=== PATIENT | female | born 1975 | race Caucasian/White ===

== ENCOUNTER 2022-07-17 08:00 | Outpatient (RCR) | payer BC, SELFPAY ==
[2022-06-26 07:56] VITALS: BP 107/62; PULSE 62; RESP 16; TEMP 35.7; BMI 22.2
--- NOTE | 2022-06-26 10:31 | PCM.WC.HP ---
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 She started to develop the wound on her sacrum and was dealing with it on her own and added almost healed then they decided to give her injections for the MS that exacerbated the wound for healing. Now patient has a stage IV tunneled sacral decubitus ulcer. Patient is emotional about the situation she is just newly paralyzed in the last 2 years. [facility] Home Medications baclofen 10 mg tablet 10 mg PO TID 06/26/22 [History Last Taken Unknown] gabapentin 300 mg capsule (Neurontin) 300 mg PO TID 06/26/22 [History Last Taken Unknown] multivitamin 1 tab PO DAILY 06/26/22 [History Last Taken Unknown] oxybutynin chloride 5 mg tablet 10 mg PO DAILY 06/26/22 [History Last Taken Unknown] Allergy/AdvReac Type Severity Reaction Status Date / Time doxycycline Allergy Nausea/Vom/ Verified 06/26/22 08:16 Diarrhea Social History Smoking Status: Former smoker ROS Constitutional Constitutional: Reports systems reviewed and no addt'l complaints, except as documented Eyes Eyes: Reports systems reviewed and no addt'l complaints, except as documented ENT HEENT: Reports systems reviewed and no addt'l complaints, except as documented Cardiovascular Cardiovascular: Reports systems reviewed and no addt'l complaints, except as documented Respiratory/Chest Respiratory/Chest: Reports systems reviewed and no addt'l complaints, except as documented Gastrointestinal Gastrointestinal: Reports systems reviewed and no addt'l complaints, except as documented Genitourinary Genitourinary: Reports other Details: Urine incontinence from paralysis Musculoskeletal Musculoskeletal: Reports other Details: Paraplegic Integumentary Integumentary: Reports wounds and other Details: Stage IV sacral wound with tunneling Neurologic Neurologic: Reports systems reviewed and no addt'l complaints, except as documented Psychiatric Psychiatric: Reports systems reviewed and no addt'l complaints, except as documented Endocrine Endocrinology: Reports systems reviewed and no addt'l complaints, except as documented Hematologic/Lymphatic Hematologic/Lymphatic: Reports systems reviewed and no addt'l complaints, except as documented Allergic/Immunologic Allergic/Immunologic: Reports systems reviewed and no addt'l complaints, except as documented Vital Signs Vital Signs Vital Signs: 06/26/22 07:56 Temperature 96.2 F L Temperature Source Temporal Pulse Rate 62 Respiratory Rate 16 Blood Pressure 107/62 Blood Pressure Mean 77 Blood Pressure Source Monitor Blood Pressure Position Sitting Oxygen Delivery Method Room Air Weight Weight: 142 lb Body Mass Index (BMI) 22.2 Physical Exam Const oriented x3 General Appearance: cooperative Exam Limitations: no limitations HEENT normocephalic Head and Scalp: normal to inspection Face and Sinus: normal facial exam Nose: external nose normal General Ear: hearing grossly impaired External Ear: external ears normal Mouth: oral and palatal mucosa normal Eyes PERRL General Eye: normal appearance of both eyes Neck full ROM General: normal visual inspection Resp normal respiratory effort Effort and Inspection: able to speak in complete sentences Auscultation: clear to auscultation bilaterally Cardio regular rate and regular rhythm Palpation: normal PMI Rate: regular rate Rhythm: regular rhythm GI Auscultation: normoactive bowel sounds Palpation: soft and no hepatosplenomegaly Back/Spine Cervical Spine: cervical ROM normal Thoracic Spine / Upper Back: normal to inspection Lumbar Spine / Lower Back: normal to inspection Extremity normal to inspection General Extremity: normal exam except as noted Skin no rashes or lesions noted Wounds: wounds noted Wound Narrative: Stage IV sacral wound with tunneling Hair: normal Nails: normal Neuro oriented x3 Psych Appearance: grossly normal Speech: normal speech Thought Content: normal thought content Judgement: judgement good Debridement Note Debridement Note Wound debrided: Sacral decubitus ulcer Laterality: Not Applicable Wound Grade/Stage: Stage IV Type of Debridement: Excisional debridement Anesthesia Used: 5% Lidocaine Gel Depth: in the subcutaneous layer Percentage of wound debrided: 100 Instrument Used: 7mm curette Tissue Removed: Fibrin Severity: Fat Layer Exposed Amount of bleeding with debridement: Moderate Bleeding Controlled with: Compression and gauze Patient tolerated procedure: Patient tolerated procedure well Post-Debridement Measurements and Additional Note: Post-Debridement Measurements/Treatment - Nurse 1 - General Ulcer Assessment Start: 06/26/22 07:56 Freq: Status: Active Protocol: BENIGNO Activity Type Activity Date Activity User E-sign Co-sign Detail Recorded Client Recorded Date Recorded By Document 06/26/22 07:56 [facility] [id number] 06/26/22 08:14 [facility] 06/26/22 07:56 - Today's Visit Information Type of service Initial Visit Arrival Mode Wheelchair Transfer Assistance None Accompanied by Patient Identification Verified (Name & Yes ) Patient Requires Transmission-Based No Precautions Height and Weight Height 5 ft 7 in Weight 142 lb Weight in Pounds 142.0 lbs Body Mass Index (BMI) 22.2 BMI Classification Normal BSA - David 1.75 Vital Signs Temperature (97.8 F-99.1 F) 96.2 F L Temperature Source Temporal Pulse Rate (60-100) 62 Pulse Location Monitor Respiratory Rate (12-18) 16 Respiratory rate source Observation Oxygen Delivery Method Room Air Blood Pressure (90/60-120/80) 107/62 Blood Pressure Mean 77 Source Monitor Position Sitting History Since Last Visit- (Skip if this is Patient's initial visit) Left Footwear Regular Shoe Right Footwear Regular Shoe Pain Scale: 0-10 Numeric Is Patient Pain Free? Yes Communication Assessment Preferred language Armenian Mycology Teacher Required No Able to Read Yes Able to Write Yes Communication Tools None Right Hearing Abillity Normal Left Hearing Abillity Normal Visual Assistive Devices None Teaching Assessment Preferences Verbal,Written, Audio/Visual, Demonstration Barriers to Learning None Readiness To Learn Excellent Willingness to Engage in Self Management High Activies Readiness to Engage in Self Management High Activities Anxiety Level Calm Cooperation Cooperative Perception Coherent Interest in Health Problem Asks Questions Education Importance Acknowledges Need Does Patient Smoke tobacco or other No substances Smoking Status Former smoker Is Patient Diabetic No 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 Cultural/Latter-Day Needs that may affect No Treatment Plan WC - Nurse 1 - General Ulcer Measurement Start: 06/26/22 07:56 Freq: Status: Active Protocol: Activity Type Activity Date Activity User E-sign Co-sign Detail Recorded Client Recorded Date Recorded By Document 06/26/22 07:56 [facility] [id number] 06/26/22 08:14 [facility] 06/26/22 07:56 Wound Center Nurse 1 #1- sacral -Combined with other wound No -Current Size (cm) - Length 1.7 -Current Size (cm) - Width 1 -Current Size (cm) - Depth 4.5 -Total Square Cm 1.7 -Date of Last Picture (Recall this 06/26/22 field) -Photo Taken Yes -Tunneling Yes -Tunneling Position (O'clock) 12 -Tunneling Distance (cm) 5.2 -Undermining/Tunneling No -Circular Undermining No -Exudate Amt Small -Exudate Type Serosanguineous -Wound Margin Distinct, Outline Attached -Granulation Amt Large (67-100%) -Granulation Quality Red -Slough/Fibrin No -Necrosis Amt None Present (0 %) -Texture (Neda-wound Skin Appearance) Assessed -Moisture (Neda-wound Skin Appearance) Assessed -Color (Neda-wound Skin Appearance) Assessed -Temperature (Neda-wound Skin No Abnormality Appearance) (Pt Warm) -Tenderness on Palpation (Neda-wound No Skin Appearance) -Ulcer Cleansing Soap and Water -Foul Odor after Cleansing No -Anesthetic Used 4% Lidocaine Solution DEBBI - Nurse 2 - General Ulcer CM Notes Start: 06/26/22 07:56 Freq: Status: Active Protocol: Activity Type Activity Date Activity User E-sign Co-sign Detail Recorded Client Recorded Date Recorded By Document 06/26/22 08:36 MW [id number] 06/26/22 08:55 MW 06/26/22 08:36 Wound Center Nurse 2 -Time 08:37 -Correct Patient Yes -Correct Side, Site, Position Yes -Correct Procedure Yes -Procedure Performed Yes -Type of Procedure Debridement -Clinical Debridement Subcutaneous -Tissue Removed Subcutaneous -Post Debridement (cm) - Length 2.0 -Post Debridement (cm) - Width 1.0 -Post Debridement (cm) - Depth 5.5 -Total Square (Post) (cm) 2.00 -Area of Debridement (cm) - Length 2.0 -Area of Debridement (cm) - Width 1.0 -Total Square (Area) (cm) 2.00 -Tunneling Yes -Tunneling Position (O'clock) 12 -Tunneling Distance (cm) 5.5 -Undermining/Tunneling No -Circular Undermining No -Wound/Ulcer Outcome Not Healed -Ulcer Cleansing Rinsed/ Irrigated with Saline -Foul Odor after Cleansing No -Bioengineered Tissue No -Bleeding Controlled with Pressure -Treatment Response Procedure Tolerated Well -Offloading No -Debridement - Subq, 1st 20sq cm Yes Pain Scale: 0-10 Numeric Is Patient Pain Free? Yes DEBBI - Nurse 3 - General Ulcer D/C NN Start: 06/26/22 07:56 Freq: Status: Active Protocol: Activity Type Activity Date Activity User E-sign Co-sign Detail Recorded Client Recorded Date Recorded By Document 06/26/22 09:33 [facility] [id number] 06/26/22 09:33 [facility] 06/26/22 09:33 Wound Care Center Nurse 3 #1- sacral -Ulcer Cleansing Rinsed/ Irrigated with Saline -Foul Odor after Cleansing No -Negative Pressure Wound Therapy Start -Setting (mmHg) 150 -Negative Pressure is Continuous -NPWT Application Charge NPWT & Debridement (nc ) Treatment Response Procedure Tolerated Well Pain Scale: 0-10 Numeric Is Patient Pain Free? Yes WC - Visit Discharge Discharge Condition Stable Ambulatory Status Wheelchair Transportation Private Auto Accompanied by [facility] Lab / Micro Data Result Diagrams: 06/26/22 09:54 06/26/22 09:54 Assessment/Plan Assessment/Plan (1) Sacral decubitus ulcer, stage IV: CODE(S): L89.154 - Pressure ulcer of sacral region, stage 4 PLAN: Wash wound with antibacterial soap such as Hibiclens. Pack with white foam and attach wound VAC at 150 mmHg May change as needed for for fullness of tank or from losing a seal. Cultures obtained will call patient with results Lab work complete blood count CMP thyroid prealbumin CT of the sacral area for osteomyelitis Consult with Rina and Dr. Gregory about flap or closure (2) Immobility syndrome (paraplegic): CODE(S): M62.3 - Immobility syndrome (paraplegic) (3) Osteomyelitis: CODE(S): M86.9 - Osteomyelitis, unspecified
[2022-06-26 10:38] LABS: Absolute Lymphocyte Count 1.02 X10^3/uL (0.83-4.51); Absolute Neutrophil Count 4.1 X10^3/uL (2.0-7.7); Basophil# 0.04 X10^3/uL; Basophil% 0.7 % (0-1); Eosinophil# 0.18 X10^3/uL; Eosinophils% 3.1 % (0-5); Hemoglobin 12.6 g/dL (12.0-15.0); Lymphocyte # 1.02 X10^3/ul (0.83-4.51); Lymphocyte % 17.7 % (19-41); Mean Corp Hgb Conc 32.3 g/dL (32-36); Mean Corpuscular Hgb 28.6 pg (27.0-32.0); Mean Corpuscular Volume 88.4 fL (81-99); Mean Platelet Vol. 9.5 fl (6.2-12.0); Monocyte# 0.43 X10^3/uL; Monocyte% 7.5 % (0-10); NRBC Flagged by Analyzer 0 % (0-5); Neutrophil # 4.09 X10^3/uL (2.7-7.7); Neutrophil % 70.8 % (47-70); Platelet Count 242 K/mm3 (150-450); RBC Distribution Width CV 13.2 % (11.6-14.6); RBC Distribution Width SD 43.2 fl (35.1-43.9); Red Blood Count 4.41 M/mm3 (4.2-5.4); White Blood Count 5.8 K/mm3 (4.4-11.0)
[2022-06-26 11:14] LABS: ALB/GLOB Ratio 0.8 RATIO (0.9-2.4); AST(SGOT) 13 U/L (15-37); Alanine Aminotransfer ALT/SGPT 16 U/L (13-56); Alkaline Phosphatase 95 U/L (45-117); Anion Gap 7 (5-15); BUN 11 mg/dL (7-18); BUN/Creat Ratio 22.2 RATIO (10-20); Calcium,Total 8.8 mg/dL (8.5-10.1); Chloride 104 mmol/L (98-107); EST Glomerular Filtration Rate 143 mL/min (>60); Est Glom Filt Rate - Afr Amer 172 mL/min (>60); Estimated Creatinine Clearance 138.17 ml/min; Globulin 3.9 g/dL (2.2-4.2); Glucose 85 mg/dL (74-106); Potassium 3.5 mmol/L (3.5-5.1); Prealbumin 15.3 mg/dL (20.0-40.0); Protein, Total 6.9 g/dL (6.4-8.2); Sodium Level 143 mmol/L (136-145); Thyroid Stim Hormone (TSH) 0.99 uIU/mL (0.358-3.74)
[2022-07-01 08:48] VITALS: TEMP 36.2; BMI 22.2
--- NOTE | 2022-07-01 16:54 | HP.PCM_ITS ---
History of Present Illness Date of Service: 07/01/22 Chief Complaint: WOUND CENTER CONSULTATION REFERRING PROVIDER: KYRA Vivar. DELIVERY ASSOCIATE: Dr. Gregory. Sacral pressure sore, Stage IV. History of Wound: 46-year-old woman who presented to the Wound Center with a sacral pressure sore, Stage IV, and associated osteomyelitis. 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 During this time she was also diagnosed with MS. She developed a sacral pressure sore that was excised and debrided in the operating room in [place] at [facility] in October,. Cultures (soft tissue and bone) showed Peptostreptococcus, Bacteroides, and E. coli. She was treated with IV Ertapenem for the osteomyelitis. 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 At her Wound Center visit last week, 06/26/22, she had a wound culture. It showed Staphylococcus aureus and Corynebacterium striatum. Will start her on Augmentin. She had labs done at last visit as well. Hgb was 12.6. Potassium was 3.5. BUN/Creat was 11/0.50. Prealbumin was 15.3. A CT scan has been ordered and is pending. I was asked to evaluate this patient for surgical options for treatment i ncluding HBO. Progress of Wound: Stable. Granulation tissue present that extends to the bone with some undermining superiorly. [facility] Medical History Former smoker Immobility syndrome (paraplegic) Long-term current use of rituximab Multiple sclerosis Osteomyelitis Sacral decubitus ulcer, stage IV Home Medications baclofen 10 mg tablet 10 mg PO TID 06/26/22 [History Last Taken Unknown] gabapentin 300 mg capsule (Neurontin) 300 mg PO TID 06/26/22 [History Last Taken Unknown] multivitamin 1 tab PO DAILY 06/26/22 [History Last Taken Unknown] oxybutynin chloride 5 mg tablet 10 mg PO DAILY 06/26/22 [History Last Taken Unknown] amoxicillin 875 mg-potassium clavulanate 125 mg tablet 1 tab PO Q12H 14 days #28 tabs 07/01/22 [Rx Last Taken Unknown] Allergy/AdvReac Type Severity Reaction Status Date / Time doxycycline Allergy Nausea/Vom/ Verified 06/26/22 08:16 Diarrhea Social History Smoking Status: Former smoker ROS ROS Narrative General - Denies fever, fatigue, and weight loss. Eyes - Denies cataracts and glaucoma. ENT - Denies nasal congestion and sore throat. Endocrine - Denies excessive thirst and urination. Skin - Denies suspicious lesions and skin cancer. Has sacral pressure sore, Stage IV. Musculoskeletal - Denies joint pain, joint stiffness, weakness of muscles and joints, back pain, and arthritis. Has osteomyelitis. Has multiple sclerosis. Neuro - Denies headaches. Has paralysis from hemorrhagic myelitis. Cardiovascular - Denies chest pain, fatigue, and shortness of breath with exertion. Psych - Denies anxiety and depression. Respiratory - Denies chronic cough and shortness of breath. Gastrointestinal - Denies nausea, vomiting, diarrhea, and constipation. Hematologic - Denies abnormal bruising and bleeding. Genitourinary - Denies hematuria and urinary frequency. Vital Signs Vital Signs Vital Signs: Weight Weight: 142 lb Body Mass Index (BMI) 22.2 Physical Exam Narrative General - Alert and Oriented. HEENT - PERRL. EOMI. Throat is clear. Neck - Supple and nontender. Lungs - Clear to auscultation. Heart - Regular rate and rhythm. Abdomen - Soft and nondistended. Lower Back and Sacrum - Sacral pressure sore, Stage IV. Extends to the bone. Some undermining superiorly. Has previous diagnosis of osteomyelitis. Measures 1.5 x 1 cm. Depth of 6 cm. Superior undermining of 5 cm. Extremities - No clubbing or cyanosis. Neuro - CN II-XII grossly intact. Paralyzed from waist down from hemorrhagic myelitis. Psych - Normal mood and affect. Debridement Note Debridement Note Wound debrided: #1 Sacral area. Laterality: Not Applicable Wound Grade/Stage: IV. Type of Debridement: Excisional debridement Anesthesia Used: 4% Lidocaine Solution Depth: Down to and including healthy tissue, in the subcutaneous layer, to muscle and to bone (bone is palpable but not exposed and not debrided.) Percentage of wound debrided: 100 Instrument Used: 5mm curette Tissue Removed: subcutaneous tissue and muscle. Severity: Fat Layer Exposed (muscle is exposed. Bone is palpable but not exposed and not debrided.) Amount of bleeding with debridement: Mild Bleeding Controlled with: Pressure Patient tolerated procedure: Patient tolerated procedure well Post-Debridement Measurements and Additional Note: Post-Debridement Measurements/Treatment - Nurse 1 - General Ulcer Assessment Start: 06/26/22 07:56 Freq: Status: Active Protocol: WC.LOWEXT Activity Type Activity Date Activity User E-sign Co-sign Detail Recorded Client Recorded Date Recorded By Document 06/26/22 07:56 [facility] [id number] 06/26/22 08:14 BM Document 07/01/22 08:48 [place] [id number] 07/01/22 08:51 AK 06/26/22 07/01/22 07:56 08:48 - Today's Visit Information Type of service Initial Visit Follow-up Visit (Physician/FITTING ROOM OPERATOR ) Arrival Mode Wheelchair Wheelchair Transfer Assistance None Accompanied by Patient Identification Verified (Name & Yes Yes ) Patient Requires Transmission-Based No No Precautions Safety Precautions NA Height and Weight Height 5 ft 7 in Weight 142 lb Weight in Pounds 142.0 lbs Body Mass Index (BMI) 22.2 22.2 BMI Classification Normal Normal BSA - David 1.75 Vital Signs Temperature (97.8 F-99.1 F) 96.2 F L 97.2 F L Temperature Source Temporal Temporal Pulse Rate (60-100) 62 Pulse Location Monitor Respiratory Rate (12-18) 16 Respiratory rate source Observation Oxygen Delivery Method Room Air Blood Pressure (90/60-120/80) 107/62 Blood Pressure Mean 77 Source Monitor Position Sitting History Since Last Visit- (Skip if this is Patient's initial visit) Have you changed medications since your No last visit? Any new allergies or adverse reactions No Had a fall/change in ADL's that may No increase risk of falls Signs or symptoms of abuse and/or No neglect since last visit Have you been in the hospital since your No last visit? Has dressing in place as prescribed Yes Has compression in place as prescribed N/A Has offloadiing in place as prescribed Yes Experienced any changes in pain level or No management Left Footwear Regular Shoe Right Footwear Regular Shoe Pain Scale: 0-10 Numeric Is Patient Pain Free? Yes Yes Communication Assessment Preferred language Slovenian Network Communications Engineer Required No Able to Read Yes Able to Write Yes Communication Tools None Right Hearing Abillity Normal Left Hearing Abillity Normal Visual Assistive Devices None Teaching Assessment Preferences Verbal,Written, Audio/Visual, Demonstration Barriers to Learning None Readiness To Learn Excellent Willingness to Engage in Self Management High Activies Readiness to Engage in Self Management High Activities Anxiety Level Calm Cooperation Cooperative Perception Coherent Interest in Health Problem Asks Questions Education Importance Acknowledges Need Does Patient Smoke tobacco or other No substances Smoking Status Former smoker Is Patient Diabetic No Culture/Bahai/Paste Maker Cultural/Bahai Needs that may affect No Treatment Plan WC - Nurse 1 - General Ulcer Measurement Start: 06/26/22 07:56 Freq: Status: Active Protocol: Activity Type Activity Date Activity User E-sign Co-sign Detail Recorded Client Recorded Date Recorded By Document 06/26/22 07:56 [facility] [id number] 06/26/22 08:14 [facility] Document 07/01/22 08:48 LA [id number] 07/01/22 08:51 LA 06/26/22 07/01/22 07:56 08:48 Wound Center Nurse 1 #1- sacral -Combined with other wound No No -Current Size (cm) - Length 1.7 1 -Current Size (cm) - Width 1 0.5 -Current Size (cm) - Depth 4.5 2 -Total Square Cm 1.7 0.5 -Date of Last Picture (Recall this 06/26/22 field) -Photo Taken Yes Yes -Tunneling Yes No -Tunneling Position (O'clock) 12 12 -Tunneling Distance (cm) 5.2 5 -Undermining/Tunneling No No -Circular Undermining No No -Change in Wound Grade/Stage No -Exudate Amt Small Medium -Exudate Type Serosanguineous Serosanguineous -Wound Margin Distinct, Distinct, Outline Outline Attached Attached -Granulation Amt Large (67-100%) Large (67-100%) -Granulation Quality Red N/A,Goldsmith -Slough/Fibrin No Yes -Necrosis Amt None Present (0 Small (1-33%) %) -Necrotic Tissue Type Adherent Slough -Structure Exposed N/A -Texture (Neda-wound Skin Appearance) Assessed No Abnormality, Assessed -Moisture (Neda-wound Skin Appearance) Assessed No Abnormality, Assessed -Color (Neda-wound Skin Appearance) Assessed No Abnormality, Assessed -Temperature (Neda-wound Skin No Abnormality No Abnormality Appearance) (Pt Warm) (Pt Warm) -Tenderness on Palpation (Neda-wound No No Skin Appearance) -Ulcer Cleansing Soap and Water Soap and Water -Foul Odor after Cleansing No No -Anesthetic Used 4% Lidocaine Solution - Nurse 2 - General Ulcer CM Notes Start: 06/26/22 07:56 Freq: Status: Active Protocol: Activity Type Activity Date Activity User E-sign Co-sign Detail Recorded Client Recorded Date Recorded By Document 06/26/22 08:36 MW [id number] 06/26/22 08:55 MW Document 07/01/22 09:41 JF [id number] 07/01/22 09:51 JF 06/26/22 07/01/22 08:36 09:41 Wound Center Nurse 2 #1- sacral -Time 08:37 09:41 -Correct Patient Yes Yes -Correct Side, Site, Position Yes Yes -Correct Procedure Yes Yes -Procedure Performed Yes Yes -Type of Procedure Debridement Debridement -Clinical Debridement Subcutaneous Muscle / Fascia -Tissue Removed Subcutaneous Muscle,Fascia -Post Debridement (cm) - Length 2.0 1.8 -Post Debridement (cm) - Width 1.0 1.0 -Post Debridement (cm) - Depth 5.5 6.7 -Total Square (Post) (cm) 2.00 1.80 -Area of Debridement (cm) - Length 2.0 1.8 -Area of Debridement (cm) - Width 1.0 1.0 -Total Square (Area) (cm) 2.00 1.80 -Tunneling Yes No -Tunneling Position (O'clock) 12 -Tunneling Distance (cm) 5.5 -Undermining/Tunneling No No -Circular Undermining No No -Wound/Ulcer Outcome Not Healed Not Healed -Ulcer Cleansing Rinsed/ Rinsed/ Irrigated with Irrigated with Saline Saline -Foul Odor after Cleansing No No -Bioengineered Tissue No No -Bleeding Controlled with Pressure Pressure -Treatment Response Procedure Procedure Tolerated Well Tolerated Well -Offloading No No -Pressure Reduction Wheelchair cushion -Debridement - Subq, 1st 20sq cm Yes -Debridement - Muscle / Fascia, 1st Yes 20sq cm Pain Scale: 0-10 Numeric Is Patient Pain Free? Yes Yes - Nurse 3 - General Ulcer D/C NN Start: 06/26/22 07:56 Freq: Status: Active Protocol: Activity Type Activity Date Activity User E-sign Co-sign Detail Recorded Client Recorded Date Recorded By Document 06/26/22 09:33 [facility] [id number] 06/26/22 09:33 BM Document 07/01/22 08:48 [place] [id number] 07/01/22 08:51 AK Document 07/01/22 10:31 [facility] [id number] 07/01/22 10:31 [facility] 06/26/22 07/01/22 07/01/22 09:33 08:48 10:31 Wound Care Center Nurse 3 #1- sacral -Ulcer Cleansing Rinsed/ Rinsed/ Irrigated with Irrigated with Saline Saline -Foul Odor after Cleansing No No -Negative Pressure Wound Therapy Start Continue -Setting (mmHg) 150 150 -Negative Pressure is Continuous Continuous -NPWT Application Charge NPWT & NPWT & Debridement (nc Debridement (nc ) ) Treatment Response Procedure Procedure Tolerated Well Tolerated Well Vital Signs Temperature (97.8 F-99.1 F) 97.2 F L Temperature Source Temporal Pain Scale: 0-10 Numeric Is Patient Pain Free? Yes Yes Yes WC - Visit Discharge Discharge Condition Stable Stable Ambulatory Status Wheelchair Wheelchair Transportation Private Auto Private Auto Accompanied by REBECCA hernandez Lab / Micro Data Attestation: I reviewed the patient's lab results. Result Diagrams: 06/26/22 09:54 06/26/22 09:54 Micro: Microbiology 06/26/22 08:45 Wound Abcess - Sacral Gram Stain - Final 06/26/22 08:45 Wound Abcess - Sacral Wound Culture - Final Corynebacterium striatum Staphylococcus aureus 06/26/22 08:45 Wound Abcess - Sacral Anaerobic Culture - Final No anaerobic bacteria isolated. Charges/Coding Visit Charges Office Visits / Consults: [id number] OV L4 New (25 Modifier ICD-10 - L89.154, M86.9, G35, Z79.620, M62.3, Z87.891 ) Procedures Integumentary 111xxx-113xx: [id number] Tran musc/fascia 20 sq cm/< (ICD-10 - L89.154, M86.9, G35, Z79.620, M62.3, Z87.891) Assessment/Plan Assessment/Plan (1) Sacral decubitus ulcer, stage IV: CODE(S): L89.154 - Pressure ulcer of sacral region, stage 4 (2) Osteomyelitis: CODE(S): M86.9 - Osteomyelitis, unspecified (3) Multiple sclerosis: CODE(S): G35 - Multiple sclerosis (4) Long-term current use of rituximab: CODE(S): Z79.620 - terminal make up operator (current) use of immunosuppressive biologic (5) Immobility syndrome (paraplegic): CODE(S): M62.3 - Immobility syndrome (paraplegic) (6) Former smoker: CODE(S): Z87.891 - Personal history of nicotine dependence PLAN: Plan Medical records reviewed. Labs and cultures reviewed. CT Pelvis is pending. Patient has a sacral pressure sore that is stable. Good granulation tissue seen. Some undermining noted superiorly. It extends down to the bone, making it a Stage IV. Continue the VAC at present. She has had osteomyelitis diagnosed last Summer. She had a surgical debridement along with IV antibiotics (Ertapenem) and wound care with the VAC. If the CT that is pending shows evidence of persistent osteomyelitis, then can be evaluated for HBO for chronic refractory osteomyelitis. Would start with 40-60 treatments. If surgical excision of the pressure sore is needed in the future, then can consider additional 40-60 HBO treatments after the surgery. Wound culture was done last week on 06/26/22. It showed Staphylococcus aureus and Corynebacterium striatum. Will start her on Augmentin. Prealbumin from last week on 06/26/22 was 15.3. Encourage nutritional supplementation with protein to help the healing process. She wants to try and heal this pressure sore without a flap if possible. Myocutaneous flap reconstruction would necessitate bedrest for 6 weeks. She understands that surgery for closure with a myocutaneous flap may be necessary in the future. If stool contamination becomes an issue in the future, then would need a diverting colostomy. She voices understanding. Right now she has a good bowel regimen usually with digital stim with no diarrhea. She has a special cushion for her wheelchair and a specialty bed at home to help minimize pressure. She does have good upper body strength and can do pressure releases every 10 minutes for 10 seconds. Patient was informed of the risks and complications of the procedure including alternatives to surgery. These were discussed with the patient personally. Patient voices understanding and wishes to proceed with the current plan of wound care and antibiotics and HBO treatments. She understands that surgery may be necessary in the future including a diverting colostomy. Followup one week.
[2022-07-10 08:35] VITALS: BP 132/64; PULSE 80; RESP 16; TEMP 35.8; BMI 22.2
--- NOTE | 2022-07-10 09:52 | PCM.WC.PN ---
History of Present Illness Date of Service: 07/10/22 Chief Complaint: WOUND CENTER CONSULTATION REFERRING PROVIDER: KYRA Vivar. SPECIALTY DEPARTMENT SUPERVISOR: Dr. Gregory. Sacral pressure sore, Stage IV. History of Wound: 46-year-old woman who presented to the Wound Center with a sacral pressure sore, Stage IV, and associated osteomyelitis. 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 During this time she was also diagnosed with MS. She developed a sacral pressure sore that was excised and debrided in the operating room in [place] at [facility] in October,. Cultures (soft tissue and bone) showed Peptostreptococcus, Bacteroides, and E. coli. She was treated with IV Ertapenem for the osteomyelitis. 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 At her Wound Center visit last week, 06/26/22, she had a wound culture. It showed Staphylococcus aureus and Corynebacterium striatum. Will start her on Augmentin. She had labs done at last visit as well. Hgb was 12.6. Potassium was 3.5. BUN/Creat was 11/0.50. Prealbumin was 15.3. A CT scan has been ordered and is pending. I was asked to evaluate this patient for surgical options for treatment including HBO. Progress of Wound: Stable. Granulation tissue present that extends to the bone with some undermining superiorly. Subjective Subjective Patient seems to be pleased with how things are going along continuing the wound VAC tolerating it well Objective Data Objective Data Tunneling is about the same from last week's measurements debrides well bleeds easily opening is smaller we will continue with wound VAC until surgery. CT scan is still pending Vital Signs: Vital Signs Temp Pulse Resp BP O2 Del Method 96.4 F L 80 16 132/64 H Room Air 07/10/22 08:35 07/10/22 08:35 07/10/22 08:35 07/10/22 08:35 07/10/22 08:35 Oxygen Delivery Method Room Air Weight: 142 lb Body Mass Index (BMI) 22.2 Lab / Micro Data Attestation: I reviewed the patient's lab results. Result Diagrams: 06/26/22 09:54 06/26/22 09:54 Micro: Microbiology 06/26/22 08:45 Wound Abcess - Sacral Gram Stain - Final 06/26/22 08:45 Wound Abcess - Sacral Wound Culture - Final Corynebacterium striatum Staphylococcus aureus 06/26/22 08:45 Wound Abcess - Sacral Anaerobic Culture - Final No anaerobic bacteria isolated. Physical Exam Const oriented x3 General Appearance: cooperative Exam Limitations: no limitations HEENT normocephalic Head and Scalp: normal to inspection Face and Sinus: normal facial exam Nose: external nose normal General Ear: hearing grossly impaired External Ear: external ears normal Mouth: oral and palatal mucosa normal Eyes PERRL General Eye: normal appearance of both eyes Neck full ROM General: normal visual inspection Resp normal respiratory effort Effort and Inspection: able to speak in complete sentences Auscultation: clear to auscultation bilaterally Cardio regular rate and regular rhythm Palpation: normal PMI Rate: regular rate Rhythm: regular rhythm GI Auscultation: normoactive bowel sounds Palpation: soft and no hepatosplenomegaly Back/Spine Cervical Spine: cervical ROM normal Thoracic Spine / Upper Back: normal to inspection Lumbar Spine / Lower Back: normal to inspection Extremity normal to inspection General Extremity: normal exam except as noted Skin no rashes or lesions noted Wounds: wounds noted Wound Narrative: Stage IV sacral wound with tunneling Hair: normal Nails: normal Neuro oriented x3 Psych Appearance: grossly normal Speech: normal speech Thought Content: normal thought content Judgement: judgement good Debridement Note Debridement Note Wound debrided: Sacral decubitus ulcer Wound Grade/Stage: Stage IV Type of Debridement: Excisional debridement Anesthesia Used: 5% Lidocaine Gel Depth: to muscle and to bone Percentage of wound debrided: 100 Instrument Used: 5mm curette Tissue Removed: Fibrin Severity: Fat Layer Exposed Amount of bleeding with debridement: Mild Bleeding Controlled with: Compression and gauze Patient tolerated procedure: Patient tolerated procedure well Post-Debridement Measurements and Additional Note: Post-Debridement Measurements/Treatment WC - Nurse 1 - General Ulcer Assessment Start: 06/26/22 07:56 Freq: Status: Active Protocol: BENIGNO Activity Type Activity Date Activity User E-sign Co-sign Detail Recorded Client Recorded Date Recorded By Document 06/26/22 07:56 [facility] [id number] 06/26/22 08:14 BM Document 07/01/22 08:48 [place] [id number] 07/01/22 08:51 [place] Document 07/10/22 08:35 [facility] [id number] 07/10/22 08:43 [facility] 06/26/22 07/01/22 07/10/22 07:56 08:48 08:35 WC - Today's Visit Information Type of service Initial Visit Follow-up Visit Follow-up Visit (Physician/ELECTRONIC PAGINATION SYSTEM OPERATOR (Physician/ELECTRONIC PAGINATION SYSTEM OPERATOR ) ) Arrival Mode Wheelchair Wheelchair Wheelchair Transfer Assistance None Other Transfer Assist (Other) 1 Accompanied by Patient Identification Verified (Name & Yes Yes Yes ) Patient Requires Transmission-Based No No No Precautions Safety Precautions NA Height and Weight Height 5 ft 7 in Weight 142 lb Weight in Pounds 142.0 lbs Body Mass Index (BMI) 22.2 22.2 22.2 BMI Classification Normal Normal Normal BSA - David 1.75 Vital Signs Temperature (97.8 F-99.1 F) 96.2 F L 97.2 F L 96.4 F L Temperature Source Temporal Temporal Temporal Pulse Rate (60-100) 62 80 Pulse Location Monitor Monitor Respiratory Rate (12-18) 16 16 Respiratory rate source Observation Observation Oxygen Delivery Method Room Air Room Air Blood Pressure (90/60-120/80) 107/62 132/64 H Blood Pressure Mean (mm Hg) 77 86 Source Monitor Monitor Position Sitting Sitting Blood Pressure Location Right Arm History Since Last Visit- (Skip if this is Patient's initial visit) Have you changed medications since your No No last visit? Any new allergies or adverse reactions No No Had a fall/change in ADL's that may No No increase risk of falls Signs or symptoms of abuse and/or No No neglect since last visit Have you been in the hospital since your No No last visit? Has dressing in place as prescribed Yes No Has compression in place as prescribed N/A N/A Has offloadiing in place as prescribed Yes N/A Experienced any changes in pain level or No No management Left Footwear Regular Shoe Regular Shoe Right Footwear Regular Shoe Regular Shoe Pain Scale: 0-10 Numeric Is Patient Pain Free? Yes Yes Yes Communication Assessment Preferred language Ghanaian Hvac Field Service Technician Required No Able to Read Yes Able to Write Yes Communication Tools None Right Hearing Abillity Normal Left Hearing Abillity Normal Visual Assistive Devices None Teaching Assessment Preferences Verbal,Written, Audio/Visual, Demonstration Barriers to Learning None Readiness To Learn Excellent Willingness to Engage in Self Management High Activies Readiness to Engage in Self Management High Activities Anxiety Level Calm Cooperation Cooperative Perception Coherent Interest in Health Problem Asks Questions Education Importance Acknowledges Need Does Patient Smoke tobacco or other No substances Smoking Status Former smoker Is Patient Diabetic No Culture/Caodaism/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 [id number] 06/26/22 08:14 [facility] Document 07/01/22 08:48 [place] [id number] 07/01/22 08:51 [place] Document 07/10/22 08:35 [facility] [id number] 07/10/22 08:43 [facility] 06/26/22 07/01/22 07/10/22 07:56 08:48 08:35 Wound Center Nurse 1 #1- sacral -Combined with other wound No No No -Current Size (cm) - Length 1.7 1 1.4 -Current Size (cm) - Width 1 0.5 0.3 -Current Size (cm) - Depth 4.5 2 3.3 -Total Square Cm 1.7 0.5 0.42 -Date of Last Picture (Recall this 06/26/22 07/10/22 field) -Photo Taken Yes Yes Yes -Epithelialization Small 1-33% -Tunneling Yes No Yes -Tunneling Position (O'clock) 12 12 12 -Tunneling Distance (cm) 5.2 5 4.6 -Undermining/Tunneling No No No -Circular Undermining No No No -Change in Wound Grade/Stage No -Exudate Amt Small Medium Medium -Exudate Type Serosanguineous Serosanguineous Serosanguineous -Wound Margin Distinct, Distinct, Distinct, Outline Outline Outline Attached Attached Attached -Granulation Amt Large (67-100%) Large (67-100%) Large (67-100%) -Granulation Quality Red N/A,[place] Red -Slough/Fibrin No Yes No -Necrosis Amt None Present (0 Small (1-33%) None Present (0 %) %) -Necrotic Tissue Type Adherent Slough -Structure Exposed N/A -Texture (Neda-wound Skin Appearance) Assessed No Abnormality, Assessed, Assessed Scarring -Moisture (Neda-wound Skin Appearance) Assessed No Abnormality, Assessed Assessed -Color (Neda-wound Skin Appearance) Assessed No Abnormality, Assessed Assessed -Temperature (Neda-wound Skin No Abnormality No Abnormality No Abnormality Appearance) (Pt Warm) (Pt Warm) (Pt Warm) -Tenderness on Palpation (Neda-wound No No No Skin Appearance) -Ulcer Cleansing Soap and Water Soap and Water Soap and Water -Foul Odor after Cleansing No No No -Anesthetic Used 4% Lidocaine Solution WC - Nurse 2 - General Ulcer CM Notes Start: 06/26/22 07:56 Freq: Status: Active Protocol: Activity Type Activity Date Activity User E-sign Co-sign Detail Recorded Client Recorded Date Recorded By Document 06/26/22 08:36 MW [id number] 06/26/22 08:55 MW Document 07/01/22 09:41 [id number] 07/01/22 09:51 JF Document 07/10/22 08:50 MW [id number] 07/10/22 08:56 MW 06/26/22 07/01/22 07/10/22 08:36 09:41 08:50 Wound Center Nurse 2 #1- sacral -Time 08:37 09:41 08:53 -Correct Patient Yes Yes Yes -Correct Side, Site, Position Yes Yes Yes -Correct Procedure Yes Yes Yes -Procedure Performed Yes Yes Yes -Type of Procedure Debridement Debridement Debridement -Clinical Debridement Subcutaneous Muscle / Fascia Subcutaneous -Tissue Removed Subcutaneous Muscle,Fascia Subcutaneous -Post Debridement (cm) - Length 2.0 1.8 1.5 -Post Debridement (cm) - Width 1.0 1.0 0.5 -Post Debridement (cm) - Depth 5.5 6.7 6.5 -Total Square (Post) (cm) 2.00 1.80 0.75 -Area of Debridement (cm) - Length 2.0 1.8 1.5 -Area of Debridement (cm) - Width 1.0 1.0 0.5 -Total Square (Area) (cm) 2.00 1.80 0.75 -Tunneling Yes No No -Tunneling Position (O'clock) 12 -Tunneling Distance (cm) 5.5 -Undermining/Tunneling No No No -Circular Undermining No No No -Wound/Ulcer Outcome Not Healed Not Healed Not Healed -Ulcer Cleansing Rinsed/ Rinsed/ Rinsed/ Irrigated with Irrigated with Irrigated with Saline Saline Saline -Foul Odor after Cleansing No No No -Bioengineered Tissue No No No -Bleeding Controlled with Pressure Pressure Pressure -Treatment Response Procedure Procedure Procedure Tolerated Well Tolerated Well Tolerated Well -Offloading No No No -Pressure Reduction Wheelchair cushion -Debridement - Subq, 1st 20sq cm Yes Yes -Debridement - Muscle / Fascia, 1st Yes 20sq cm Pain Scale: 0-10 Numeric Is Patient Pain Free? Yes Yes Yes - Nurse 3 - General Ulcer D/C NN Start: 06/26/22 07:56 Freq: Status: Active Protocol: Activity Type Activity Date Activity User E-sign Co-sign Detail Recorded Client Recorded Date Recorded By Document 06/26/22 09:33 [facility] [id number] 06/26/22 09:33 [facility] Document 07/01/22 08:48 [place] [id number] 07/01/22 08:51 [place] Document 07/01/22 10:31 [facility] [id number] 07/01/22 10:31 [facility] Document 07/10/22 09:14 [facility] [id number] 07/10/22 09:15 [facility] 06/26/22 07/01/22 07/01/22 09:33 08:48 10:31 Wound Care Center Nurse 3 #1- sacral -Ulcer Cleansing Rinsed/ Rinsed/ Irrigated with Irrigated with Saline Saline -Foul Odor after Cleansing No No -Negative Pressure Wound Therapy Start Continue -Setting (mmHg) 150 150 -Negative Pressure is Continuous Continuous -NPWT Application Charge NPWT & NPWT & Debridement (nc Debridement (nc ) ) Treatment Response Procedure Procedure Tolerated Well Tolerated Well Vital Signs Temperature (97.8 F-99.1 F) 97.2 F L Temperature Source Temporal Pain Scale: 0-10 Numeric Is Patient Pain Free? Yes Yes Yes - Visit Discharge Discharge Condition Stable Stable Ambulatory Status Wheelchair Wheelchair Transportation Private Auto Private Auto Accompanied by REBECCA hernandez 07/10/22 09:14 Wound Care Center Nurse 3 #1- sacral -Ulcer Cleansing Soap and Water -Foul Odor after Cleansing No -Negative Pressure Wound Therapy Continue -Setting (mmHg) 150 -Negative Pressure is Continuous -NPWT Application Charge NPWT & Debridement (nc ) Treatment Response Procedure Tolerated Well Vital Signs Temperature (97.8 F-99.1 F) Temperature Source Pain Scale: 0-10 Numeric Is Patient Pain Free? Yes WC - Visit Discharge Discharge Condition Stable Ambulatory Status Wheelchair Transportation Private Auto Accompanied by Assessment/Plan Assessment/Plan (1) Sacral decubitus ulcer, stage IV: CODE(S): L89.154 - Pressure ulcer of sacral region, stage 4 PLAN: Wash wound with antibacterial soap such as Hibiclens. Pack with white foam and attach wound VAC at 150 mmHg May change as needed for for fullness of tank or from losing a seal. Continue antibiotic therapy Continue increase protein intake CT of the sacral area for osteomyelitis Consult completed with Dr. Gregory all pending on CT scan still pending Follow-up 1 week (2) Immobility syndrome (paraplegic): CODE(S): M62.3 - Immobility syndrome (paraplegic) (3) Osteomyelitis: CODE(S): M86.9 - Osteomyelitis, unspecified
[2022-07-17 08:03] VITALS: TEMP 36.2; BMI 22.2
--- NOTE | 2022-07-17 11:57 | PCM.WC.PN ---
History of Present Illness Date of Service: 07/17/22 Chief Complaint: WOUND CENTER CONSULTATION REFERRING PROVIDER: KYRA Vivar. TECHNOLOGY APPLICATIONS ENGINEER: Dr. Gregory. Sacral pressure sore, Stage IV. History of Wound: 46-year-old woman who presented to the Wound Center with a sacral pressure sore, Stage IV, and associated osteomyelitis. 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 During this time she was also diagnosed with MS. She developed a sacral pressure sore that was excised and debrided in the operating room in [place] at [facility] in October,. Cultures (soft tissue and bone) showed Peptostreptococcus, Bacteroides, and E. coli. She was treated with IV Ertapenem for the osteomyelitis. 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 At her Wound Center visit last week, 06/26/22, she had a wound culture. It showed Staphylococcus aureus and Corynebacterium striatum. Will start her on Augmentin. She had labs done at last visit as well. Hgb was 12.6. Potassium was 3.5. BUN/Creat was 11/0.50. Prealbumin was 15.3. A CT scan has been ordered and is pending. I was asked to evaluate this patient for surgical options for treatment including HBO. Progress of Wound: The wound is stable the depth is and by 2 cm which is very good were seen less tunneling and more openness underneath the skin. Bleeds easily with debridement tolerates it well. Tolerating the wound VAC extremely well at 150 mmHg. Unfortunately she was denied on a CT scan of her lumbar. We will go for an MRI of the pelvis and lumbar area for osteomyelitis and stage IV ulcer. Subjective Subjective Patient was upset that they would not pay for the CT scan she says she has had numerous MRIs for her MS through her neurologist at [facility]. She is happy about the depth and proving and she is not having any issues with the wound VAC at this point. Objective Data Objective Data Same as above depth is better no sign of redness or irritations or infection noted on the outer skin. Denies fever chills nausea vomiting Vital Signs: Vital Signs Temp Pulse Resp BP O2 Del Method 97.2 F L 80 16 132/64 H Room Air 07/17/22 08:03 07/10/22 08:35 07/10/22 08:35 07/10/22 08:35 07/10/22 08:35 Oxygen Delivery Method Room Air Weight: 142 lb Body Mass Index (BMI) 22.2 Lab / Micro Data Attestation: I reviewed the patient's lab results. Result Diagrams: 06/26/22 09:54 06/26/22 09:54 Micro: Microbiology 06/26/22 08:45 Wound Abcess - Sacral Gram Stain - Final 06/26/22 08:45 Wound Abcess - Sacral Wound Culture - Final Corynebacterium striatum Staphylococcus aureus 06/26/22 08:45 Wound Abcess - Sacral Anaerobic Culture - Final No anaerobic bacteria isolated. Physical Exam Const oriented x3 General Appearance: cooperative Exam Limitations: no limitations HEENT normocephalic Head and Scalp: normal to inspection Face and Sinus: normal facial exam Nose: external nose normal General Ear: hearing grossly impaired External Ear: external ears normal Mouth: oral and palatal mucosa normal Eyes PERRL General Eye: normal appearance of both eyes Neck full ROM General: normal visual inspection Resp normal respiratory effort Effort and Inspection: able to speak in complete sentences Auscultation: clear to auscultation bilaterally Cardio regular rate and regular rhythm Palpation: normal PMI Rate: regular rate Rhythm: regular rhythm GI Auscultation: normoactive bowel sounds Palpation: soft and no hepatosplenomegaly Back/Spine Cervical Spine: cervical ROM normal Thoracic Spine / Upper Back: normal to inspection Lumbar Spine / Lower Back: normal to inspection Extremity normal to inspection General Extremity: normal exam except as noted Skin no rashes or lesions noted Wounds: wounds noted Wound Narrative: Stage IV sacral wound with tunneling Hair: normal Nails: normal Neuro oriented x3 Psych Appearance: grossly normal Speech: normal speech Thought Content: normal thought content Judgement: judgement good Debridement Note Debridement Note Wound debrided: Decubitus ulcer stage IV sacral Wound Grade/Stage: Stage IV Type of Debridement: Excisional debridement Anesthesia Used: 5% Lidocaine Gel Depth: to muscle and to bone Percentage of wound debrided: 100 Instrument Used: 5mm curette Tissue Removed: Fibrin Severity: Fat Layer Exposed Amount of bleeding with debridement: Mild Bleeding Controlled with: Compression and gauze Patient tolerated procedure: Patient tolerated procedure well Post-Debridement Measurements and Additional Note: Post-Debridement Measurements/Treatment WC - Nurse 1 - General Ulcer Assessment Start: 06/26/22 07:56 Freq: Status: Active Protocol: BENIGNO Activity Type Activity Date Activity User E-sign Co-sign Detail Recorded Client Recorded Date Recorded By Document 06/26/22 07:56 [facility] [id number] 06/26/22 08:14 BMF Document 07/01/22 08:48 [place] [id number] 07/01/22 08:51 [place] Document 07/10/22 08:35 BM [id number] 07/10/22 08:43 BMF Document 07/17/22 08:03 BM [id number] 07/17/22 08:10 BMF 06/26/22 07/01/22 07/10/22 07:56 08:48 08:35 - Today's Visit Information Type of service Initial Visit Follow-up Visit Follow-up Visit (Physician/PACKING LINE WORKER (Physician/PACKING LINE WORKER ) ) Arrival Mode Wheelchair Wheelchair Wheelchair Transfer Assistance None Other Transfer Assist (Other) 1 Accompanied by Patient Identification Verified (Name & Yes Yes Yes ) Patient Requires Transmission-Based No No No Precautions Safety Precautions NA Height and Weight Height 5 ft 7 in Weight 142 lb Weight in Pounds 142.0 lbs Body Mass Index (BMI) 22.2 22.2 22.2 BMI Classification Normal Normal Normal BSA - David 1.75 Vital Signs Temperature (97.8 F-99.1 F) 96.2 F L 97.2 F L 96.4 F L Temperature Source Temporal Temporal Temporal Pulse Rate (60-100) 62 80 Pulse Location Monitor Monitor Respiratory Rate (12-18) 16 16 Respiratory rate source Observation Observation Oxygen Delivery Method Room Air Room Air Blood Pressure (90/60-120/80) 107/62 132/64 H Blood Pressure Mean (mm Hg) 77 86 Source Monitor Monitor Position Sitting Sitting Blood Pressure Location Right Arm History Since Last Visit- (Skip if this is Patient's initial visit) Have you changed medications since your No No last visit? Any new allergies or adverse reactions No No Had a fall/change in ADL's that may No No increase risk of falls Signs or symptoms of abuse and/or No No neglect since last visit Have you been in the hospital since your No No last visit? Has dressing in place as prescribed Yes No Has compression in place as prescribed N/A N/A Has offloadiing in place as prescribed Yes N/A Experienced any changes in pain level or No No management Left Footwear Regular Shoe Regular Shoe Right Footwear Regular Shoe Regular Shoe Pain Scale: 0-10 Numeric Is Patient Pain Free? Yes Yes Yes Communication Assessment Preferred language U[place] Asset Protection Detective Required No Able to Read Yes Able to Write Yes Communication Tools None Right Hearing Abillity Normal Left Hearing Abillity Normal Visual Assistive Devices None Teaching Assessment Preferences Verbal,Written, Audio/Visual, Demonstration Barriers to Learning None Readiness To Learn Excellent Willingness to Engage in Self Management High Activies Readiness to Engage in Self Management High Activities Anxiety Level Calm Cooperation Cooperative Perception Coherent Interest in Health Problem Asks Questions Education Importance Acknowledges Need Does Patient Smoke tobacco or other No substances Smoking Status Former smoker Is Patient Diabetic No 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/Druze Needs that may affect No Treatment Plan 07/17/22 08:03 WC - Today's Visit Information Type of service Follow-up Visit (Physician/PACKING LINE WORKER ) Arrival Mode Wheelchair Transfer Assistance Other Transfer Assist (Other) 1 Accompanied by Patient Identification Verified (Name & Yes ) Patient Requires Transmission-Based No Precautions Safety Precautions Height and Weight Height Weight Weight in Pounds Body Mass Index (BMI) 22.2 BMI Classification Normal BSA - David Vital Signs Temperature (97.8 F-99.1 F) 97.2 F L Temperature Source Temporal Pulse Rate (60-100) Pulse Location Monitor Respiratory Rate (12-18) Respiratory rate source Oxygen Delivery Method Blood Pressure (90/60-120/80) Blood Pressure Mean (mm Hg) Source Monitor Position Sitting Blood Pressure Location Left Arm History Since Last Visit- (Skip if this is Patient's initial visit) Have you changed medications since your No last visit? Any new allergies or adverse reactions No Had a fall/change in ADL's that may No increase risk of falls Signs or symptoms of abuse and/or No neglect since last visit Have you been in the hospital since your No last visit? Has dressing in place as prescribed No Has compression in place as prescribed N/A Has offloadiing in place as prescribed N/A Experienced any changes in pain level or No management Left Footwear Regular Shoe Right Footwear Regular Shoe Pain Scale: 0-10 Numeric Is Patient Pain Free? 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/Druze Needs that may affect Treatment Plan WC - Nurse 1 - General Ulcer Measurement Start: 06/26/22 07:56 Freq: Status: Active Protocol: Activity Type Activity Date Activity User E-sign Co-sign Detail Recorded Client Recorded Date Recorded By Document 06/26/22 07:56 [facility] [id number] 06/26/22 08:14 [facility] Document 07/01/22 08:48 [place] [id number] 07/01/22 08:51 [place] Document 07/10/22 08:35 [facility] [id number] 07/10/22 08:43 [facility] Document 07/17/22 08:03 [facility] [id number] 07/17/22 08:10 [facility] 06/26/22 07/01/22 07/10/22 07:56 08:48 08:35 Wound Center Nurse 1 #1- sacral -Combined with other wound No No No -Current Size (cm) - Length 1.7 1 1.4 -Current Size (cm) - Width 1 0.5 0.3 -Current Size (cm) - Depth 4.5 2 3.3 -Total Square Cm 1.7 0.5 0.42 -Date of Last Picture (Recall this 06/26/22 07/10/22 field) -Photo Taken Yes Yes Yes -Epithelialization Small 1-33% -Tunneling Yes No Yes -Tunneling Position (O'clock) 12 12 12 -Tunneling Distance (cm) 5.2 5 4.6 -Undermining/Tunneling No No No -Circular Undermining No No No -Change in Wound Grade/Stage No -Exudate Amt Small Medium Medium -Exudate Type Serosanguineous Serosanguineous Serosanguineous -Wound Margin Distinct, Distinct, Distinct, Outline Outline Outline Attached Attached Attached -Granulation Amt Large (67-100%) Large (67-100%) Large (67-100%) -Granulation Quality Red N/A,[place] Red -Slough/Fibrin No Yes No -Necrosis Amt None Present (0 Small (1-33%) None Present (0 %) %) -Necrotic Tissue Type Adherent Slough -Structure Exposed N/A -Texture (Neda-wound Skin Appearance) Assessed No Abnormality, Assessed, Assessed Scarring -Moisture (Neda-wound Skin Appearance) Assessed No Abnormality, Assessed Assessed -Color (Neda-wound Skin Appearance) Assessed No Abnormality, Assessed Assessed -Temperature (Neda-wound Skin No Abnormality No Abnormality No Abnormality Appearance) (Pt Warm) (Pt Warm) (Pt Warm) -Tenderness on Palpation (Neda-wound No No No Skin Appearance) -Ulcer Cleansing Soap and Water Soap and Water Soap and Water -Foul Odor after Cleansing No No No -Anesthetic Used 4% Lidocaine Solution 07/17/22 08:03 Wound Center Nurse 1 #1- sacral -Combined with other wound No -Current Size (cm) - Length 1 -Current Size (cm) - Width 0.3 -Current Size (cm) - Depth 3.1 -Total Square Cm 0.3 -Date of Last Picture (Recall this 07/17/22 field) -Photo Taken Yes -Epithelialization -Tunneling No -Tunneling Position (O'clock) -Tunneling Distance (cm) -Undermining/Tunneling No -Circular Undermining No -Change in Wound Grade/Stage No -Exudate Amt Large -Exudate Type Serosanguineous -Wound Margin Distinct, Outline Attached -Granulation Amt Medium (34-66%) -Granulation Quality [place] -Slough/Fibrin Yes -Necrosis Amt Medium (34-66%) -Necrotic Tissue Type Adherent Slough -Structure Exposed N/A -Texture (Neda-wound Skin Appearance) No Abnormality, Assessed -Moisture (Neda-wound Skin Appearance) Assessed, Maceration -Color (Neda-wound Skin Appearance) No Abnormality, Assessed -Temperature (Neda-wound Skin No Abnormality Appearance) (Pt Warm) -Tenderness on Palpation (Neda-wound No Skin Appearance) -Ulcer Cleansing Soap and Water -Foul Odor after Cleansing No -Anesthetic Used WC - Nurse 2 - General Ulcer CM Notes Start: 06/26/22 07:56 Freq: Status: Active Protocol: Activity Type Activity Date Activity User E-sign Co-sign Detail Recorded Client Recorded Date Recorded By Document 06/26/22 08:36 MW [id number] 06/26/22 08:55 MW Document 07/01/22 09:41 JF [id number] 07/01/22 09:51 JF Document 07/10/22 08:50 MW [id number] 07/10/22 08:56 MW Document 07/17/22 08:19 MW [id number] 07/17/22 08:23 MW 06/26/22 07/01/22 07/10/22 08:36 09:41 08:50 Wound Center Nurse 2 #1- sacral -Time 08:37 09:41 08:53 -Correct Patient Yes Yes Yes -Correct Side, Site, Position Yes Yes Yes -Correct Procedure Yes Yes Yes -Procedure Performed Yes Yes Yes -Type of Procedure Debridement Debridement Debridement -Clinical Debridement Subcutaneous Muscle / Fascia Subcutaneous -Tissue Removed Subcutaneous Muscle,Fascia Subcutaneous -Post Debridement (cm) - Length 2.0 1.8 1.5 -Post Debridement (cm) - Width 1.0 1.0 0.5 -Post Debridement (cm) - Depth 5.5 6.7 6.5 -Total Square (Post) (cm) 2.00 1.80 0.75 -Area of Debridement (cm) - Length 2.0 1.8 1.5 -Area of Debridement (cm) - Width 1.0 1.0 0.5 -Total Square (Area) (cm) 2.00 1.80 0.75 -Tunneling Yes No No -Tunneling Position (O'clock) 12 -Tunneling Distance (cm) 5.5 -Undermining/Tunneling No No No -Circular Undermining No No No -Wound/Ulcer Outcome Not Healed Not Healed Not Healed -Ulcer Cleansing Rinsed/ Rinsed/ Rinsed/ Irrigated with Irrigated with Irrigated with Saline Saline Saline -Foul Odor after Cleansing No No No -Bioengineered Tissue No No No -Bleeding Controlled with Pressure Pressure Pressure -Treatment Response Procedure Procedure Procedure Tolerated Well Tolerated Well Tolerated Well -Offloading No No No -Pressure Reduction Wheelchair cushion -Debridement - Subq, 1st 20sq cm Yes Yes -Debridement - Muscle / Fascia, 1st Yes 20sq cm Pain Scale: 0-10 Numeric Is Patient Pain Free? Yes Yes Yes 07/17/22 08:19 Wound Center Nurse 2 #1- sacral -Time 08:19 -Correct Patient Yes -Correct Side, Site, Position Yes -Correct Procedure Yes -Procedure Performed Yes -Type of Procedure Debridement -Clinical Debridement Subcutaneous -Tissue Removed Subcutaneous -Post Debridement (cm) - Length 1.0 -Post Debridement (cm) - Width 0.7 -Post Debridement (cm) - Depth 4.0 -Total Square (Post) (cm) 0.70 -Area of Debridement (cm) - Length 1.0 -Area of Debridement (cm) - Width 0.7 -Total Square (Area) (cm) 0.70 -Tunneling No -Tunneling Position (O'clock) -Tunneling Distance (cm) -Undermining/Tunneling No -Circular Undermining No -Wound/Ulcer Outcome Not Healed -Ulcer Cleansing Rinsed/ Irrigated with Saline -Foul Odor after Cleansing No -Bioengineered Tissue No -Bleeding Controlled with Pressure -Treatment Response Procedure Tolerated Well -Offloading No -Pressure Reduction -Debridement - Subq, 1st 20sq cm Yes -Debridement - Muscle / Fascia, 1st 20sq cm Pain Scale: 0-10 Numeric Is Patient Pain Free? Yes - Nurse 3 - General Ulcer D/C NN Start: 06/26/22 07:56 Freq: Status: Active Protocol: Activity Type Activity Date Activity User E-sign Co-sign Detail Recorded Client Recorded Date Recorded By Document 06/26/22 09:33 [facility] [id number] 06/26/22 09:33 [facility] Document 07/01/22 08:48 [place] [id number] 07/01/22 08:51 [place] Document 07/01/22 10:31 [facility] [id number] 07/01/22 10:31 [facility] Document 07/10/22 09:14 [facility] [id number] 07/10/22 09:15 [facility] Document 07/17/22 08:45 [facility] [id number] 07/17/22 08:46 [facility] 06/26/22 07/01/22 07/01/22 09:33 08:48 10:31 Wound Care Center Nurse 3 #1- sacral -Ulcer Cleansing Rinsed/ Rinsed/ Irrigated with Irrigated with Saline Saline -Foul Odor after Cleansing No No -Negative Pressure Wound Therapy Start Continue -Setting (mmHg) 150 150 -Negative Pressure is Continuous Continuous -NPWT Application Charge NPWT & NPWT & Debridement (nc Debridement (nc ) ) Treatment Response Procedure Procedure Tolerated Well Tolerated Well Vital Signs Temperature (97.8 F-99.1 F) 97.2 F L Temperature Source Temporal Pain Scale: 0-10 Numeric Is Patient Pain Free? Yes Yes Yes WC - Visit Discharge Discharge Condition Stable Stable Ambulatory Status Wheelchair Wheelchair Transportation Private Auto Private Auto Accompanied by REBECCA hernandez 07/10/22 07/17/22 09:14 08:45 Wound Care Center Nurse 3 #1- sacral -Ulcer Cleansing Soap and Water Rinsed/ Irrigated with Saline -Foul Odor after Cleansing No No -Negative Pressure Wound Therapy Continue Continue -Setting (mmHg) 150 150 -Negative Pressure is Continuous Continuous -NPWT Application Charge NPWT & NPWT & Debridement (nc Debridement (nc ) ) Treatment Response Procedure Procedure Tolerated Well Tolerated Well Vital Signs Temperature (97.8 F-99.1 F) Temperature Source Pain Scale: 0-10 Numeric Is Patient Pain Free? Yes Yes WC - Visit Discharge Discharge Condition Stable Stable Ambulatory Status Wheelchair Wheelchair Transportation Private Auto Private [facility] Assessment/Plan Assessment/Plan (1) Sacral decubitus ulcer, stage IV: CODE(S): L89.154 - Pressure ulcer of sacral region, stage 4 PLAN: Wash wound with antibacterial soap such as Hibiclens. Pack with white foam and attach wound VAC at 150 mmHg May change as needed for for fullness of tank or from losing a seal. Continue antibiotic therapy Continue increase protein intake CT of the sacral area for osteomyelitis rejected will try MRI of pelvis and lumbar area Consult completed with Dr. Gregory all pending on MRI scan still pending Follow-up 1 week (2) Immobility syndrome (paraplegic): CODE(S): M62.3 - Immobility syndrome (paraplegic) (3) Osteomyelitis: CODE(S): M86.9 - Osteomyelitis, unspecified
== END 2022-07-23 23:59 | disposition home or self-care (01) ==
LOC: WC 08:00
PROVIDERS: PCP Family Medicine; Visit Provider Nurse Practitioner
DX: L89.154 Pressure ulcer of sacral region, stage 4 (principal); G82.20 Paraplegia, unspecified; G35 Multiple sclerosis; M86.9 Osteomyelitis, unspecified; Z87.891 Personal history of nicotine dependence; M62.3 Immobility syndrome (paraplegic); Z79.620 Long term (current) use of immunosuppressive biologic
CPT/HCPCS: 11042; 11043; 36415; 80053; 84134; 84443; 85025; 87070; 87075; 87077; 87186; 87205; 99203; G0463

== ENCOUNTER 2022-08-21 10:30 | Outpatient (RCR) | payer BC, SELFPAY ==
[2022-07-24 00:08] VITALS: BP 132/64; PULSE 80; RESP 16; TEMP 36.2; BMI 22.2
[2022-07-24 08:04] VITALS: BP 117/34; PULSE 83; RESP 16; TEMP 35.8; BMI 22.2
--- NOTE | 2022-07-24 09:56 | PCM.WC.PN ---
History of Present Illness Date of Service: 07/24/22 Chief Complaint: WOUND CENTER CONSULTATION REFERRING PROVIDER: KYRA Vivar. BOX TOE BUFFER: Dr. rGegory. Sacral pressure sore, Stage IV. History of Wound: 46-year-old woman who presented to the Wound Center with a sacral pressure sore, Stage IV, and associated osteomyelitis. 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 During this time she was also diagnosed with MS. She developed a sacral pressure sore that was excised and debrided in the operating room in [place] at [facility] in October,. Cultures (soft tissue and bone) showed Peptostreptococcus, Bacteroides, and E. coli. She was treated with IV Ertapenem for the osteomyelitis. 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 At her Wound Center visit last week, 06/26/22, she had a wound culture. It showed Staphylococcus aureus and Corynebacterium striatum. Will start her on Augmentin. She had labs done at last visit as well. Hgb was 12.6. Potassium was 3.5. BUN/Creat was 11/0.50. Prealbumin was 15.3. A CT scan has been ordered and is pending. I was asked to evaluate this patient for surgical options for treatment including HBO. Progress of Wound: The wound is not worsening it staying about the same. Still pending MRI of that pelvic area. Patient is still on her antibiotic therapy so we will hold off on cultures till she is finished. Denies any foul dressings or foul drainage bleeds easily with debridement. Subjective Subjective Patient is still being patient with care till we get the MRI and get her on some kind with surgery or hyperbaric chamber therapy Objective Data Objective Data As stated above no change in wound size doing well stable still pending on the MRI. We will continue using wound VAC at 150 mmHg Vital Signs: Vital Signs Temp Pulse Resp BP O2 Del Method 96.4 F L 83 16 117/34 L Room Air 07/24/22 08:04 07/24/22 08:04 07/24/22 08:04 07/24/22 08:04 07/24/22 08:04 Oxygen Delivery Method Room Air Weight: 142 lb Body Mass Index (BMI) 22.2 Lab / Micro Data Attestation: I reviewed the patient's lab results. Physical Exam Const oriented x3 General Appearance: cooperative Exam Limitations: no limitations HEENT normocephalic Head and Scalp: normal to inspection Face and Sinus: normal facial exam Nose: external nose normal General Ear: hearing grossly impaired External Ear: external ears normal Mouth: oral and palatal mucosa normal Eyes PERRL General Eye: normal appearance of both eyes Neck full ROM General: normal visual inspection Resp normal respiratory effort Effort and Inspection: able to speak in complete sentences Auscultation: clear to auscultation bilaterally Cardio regular rate and regular rhythm Palpation: normal PMI Rate: regular rate Rhythm: regular rhythm GI Auscultation: normoactive bowel sounds Palpation: soft and no hepatosplenomegaly Back/Spine Cervical Spine: cervical ROM normal Thoracic Spine / Upper Back: normal to inspection Lumbar Spine / Lower Back: normal to inspection Extremity normal to inspection General Extremity: normal exam except as noted Skin no rashes or lesions noted Wounds: wounds noted Wound Narrative: Stage IV sacral wound with tunneling Hair: normal Nails: normal Neuro oriented x3 Psych Appearance: grossly normal Speech: normal speech Thought Content: normal thought content Judgement: judgement good Debridement Note Debridement Note Wound debrided: Sacral decubitus ulcer Wound Grade/Stage: Stage IV Type of Debridement: Excisional debridement Anesthesia Used: 5% Lidocaine Gel Depth: in the subcutaneous layer and to muscle Percentage of wound debrided: 100 Instrument Used: 5mm curette Tissue Removed: Fibrin Severity: Limited To Skin Breakdown Amount of bleeding with debridement: Mild Bleeding Controlled with: Compression and gauze (Irrigated with saline) Patient tolerated procedure: Patient tolerated procedure well Post-Debridement Measurements and Additional Note: Post-Debridement Measurements/Treatment - Nurse 1 - General Ulcer Assessment Start: 07/24/22 08:02 Freq: Status: Active Protocol: BENIGNO Activity Type Activity Date Activity User E-sign Co-sign Detail Recorded Client Recorded Date Recorded By Document 07/24/22 08:04 [facility] [id number] 07/24/22 08:11 [facility] 07/24/22 08:04 - Today's Visit Information Type of service Follow-up Visit (Physician/STONE UNLOADER ) Arrival Mode Wheelchair Transfer Assistance None Transfer Assist (Other) helps pt w/ slide Patient Identification Verified (Name & Yes ) Patient Requires Transmission-Based No Precautions Height and Weight Body Mass Index (BMI) 22.2 BMI Classification Normal Vital Signs Temperature (97.8 F-99.1 F) 96.4 F L Temperature Source Temporal Pulse Rate (60-100) 83 Pulse Location Monitor Respiratory Rate (12-18) 16 Respiratory rate source Observation Oxygen Delivery Method Room Air Blood Pressure (90/60-120/80) 117/34 L Blood Pressure Mean (mm Hg) 61 Source Monitor Position Sitting Blood Pressure Location Right Arm History Since Last Visit- (Skip if this is Patient's initial visit) Have you changed medications since your No last visit? Any new allergies or adverse reactions No Had a fall/change in ADL's that may No increase risk of falls Signs or symptoms of abuse and/or No neglect since last visit Have you been in the hospital since your No last visit? Has dressing in place as prescribed No Has compression in place as prescribed N/A Has offloadiing in place as prescribed N/A Experienced any changes in pain level or No management Left Footwear Regular Shoe Right Footwear Regular Shoe Pain Scale: 0-10 Numeric Is Patient Pain Free? Yes WC - Nurse 1 - General Ulcer Measurement Start: 07/24/22 08:02 Freq: Status: Active Protocol: Activity Type Activity Date Activity User E-sign Co-sign Detail Recorded Client Recorded Date Recorded By Document 07/24/22 08:04 [facility] [id number] 07/24/22 08:11 [facility] 07/24/22 08:04 Wound Center Nurse 1 #1- sacral -Combined with other wound No -Current Size (cm) - Length 1 -Current Size (cm) - Width 0.2 -Current Size (cm) - Depth 3.3 -Total Square Cm 0.2 -Date of Last Picture (Recall this 07/24/22 field) -Photo Taken Yes -Epithelialization None Present -Tunneling Yes -Tunneling Position (O'clock) 12 -Tunneling Distance (cm) 4.1 -Undermining/Tunneling No -Circular Undermining No -Exudate Amt Medium -Exudate Type Serosanguineous -Wound Margin Distinct, Outline Attached -Granulation Amt Large (67-100%) -Granulation Quality Red -Slough/Fibrin No -Necrosis Amt None Present (0 %) -Texture (Neda-wound Skin Appearance) Assessed, Scarring -Moisture (Neda-wound Skin Appearance) Assessed -Color (Neda-wound Skin Appearance) Assessed -Temperature (Neda-wound Skin No Abnormality Appearance) (Pt Warm) -Tenderness on Palpation (Neda-wound No Skin Appearance) -Ulcer Cleansing Rinsed/ Irrigated with Saline -Foul Odor after Cleansing No WC - Nurse 2 - General Ulcer CM Notes Start: 07/24/22 08:02 Freq: Status: Active Protocol: Activity Type Activity Date Activity User E-sign Co-sign Detail Recorded Client Recorded Date Recorded By Document 07/24/22 08:23 MW [id number] 07/24/22 08:25 MW 07/24/22 08:23 Wound Center Nurse 2 -Time 08:24 -Correct Patient Yes -Correct Side, Site, Position Yes -Correct Procedure Yes -Procedure Performed Yes -Type of Procedure Debridement -Clinical Debridement Subcutaneous -Tissue Removed Subcutaneous -Post Debridement (cm) - Length 1.0 -Post Debridement (cm) - Width 0.3 -Post Debridement (cm) - Depth 5.0 -Total Square (Post) (cm) 0.30 -Area of Debridement (cm) - Length 1.0 -Area of Debridement (cm) - Width 0.3 -Total Square (Area) (cm) 0.30 -Tunneling No -Undermining/Tunneling No -Circular Undermining No -Wound/Ulcer Outcome Not Healed -Ulcer Cleansing Rinsed/ Irrigated with Saline -Foul Odor after Cleansing No -Bioengineered Tissue No -Bleeding Controlled with Pressure -Treatment Response Procedure Tolerated Well -Offloading No -Debridement - Subq, 1st 20sq cm Yes Pain Scale: 0-10 Numeric Is Patient Pain Free? Yes WC - Nurse 3 - General Ulcer D/C NN Start: 07/24/22 08:02 Freq: Status: Active Protocol: Activity Type Activity Date Activity User E-sign Co-sign Detail Recorded Client Recorded Date Recorded By Document 07/24/22 08:33 ML [id number] 07/24/22 08:34 ML 07/24/22 08:33 Wound Care Center Nurse 3 #1- sacral -Ulcer Cleansing Soap and Water -Foul Odor after Cleansing No -Negative Pressure Wound Therapy Continue -Negative Pressure is Continuous -Regranex (If Applicable) Continue -NPWT Application Charge NPWT & Debridement (nc ) Pain Scale: 0-10 Numeric Is Patient Pain Free? Yes Assessment/Plan Assessment/Plan (1) Sacral decubitus ulcer, stage IV: CODE(S): L89.154 - Pressure ulcer of sacral region, stage 4 PLAN: Wash wound with antibacterial soap such as Hibiclens. Pack with white foam and attach wound VAC at 150 mmHg May change as needed for for fullness of tank or from losing a seal. Continue antibiotic therapy Continue increase protein intake MRI of the sacral lumbar area for osteomyelitis Consult completed with Dr. Gregory all pending on MRI scan still pending Follow-up 1 week (2) Immobility syndrome (paraplegic): CODE(S): M62.3 - Immobility syndrome (paraplegic) (3) Osteomyelitis: CODE(S): M86.9 - Osteomyelitis, unspecified
[2022-07-31 07:56] VITALS: BP 113/32; PULSE 75; TEMP 36.2; BMI 22.2
[2022-07-31 09:13] LABS: Absolute Lymphocyte Count 1.17 X10^3/uL (0.83-4.51); Absolute Neutrophil Count 3.6 X10^3/uL (2.0-7.7); Basophil# 0.03 X10^3/uL; Basophil% 0.6 % (0-1); Eosinophils% 1.9 % (0-5); Hematocrit 40.6 % (37-47); Hemoglobin 12.9 g/dL (12.0-15.0); Lymphocyte # 1.17 X10^3/ul (0.83-4.51); Mean Corp Hgb Conc 31.8 g/dL (32-36); Mean Corpuscular Hgb 28.2 pg (27.0-32.0); Mean Corpuscular Volume 88.8 fL (81-99); Mean Platelet Vol. 9.3 fl (6.2-12.0); Monocyte# 0.39 X10^3/uL; Monocyte% 7.3 % (0-10); NRBC Flagged by Analyzer 0 % (0-5); Neutrophil % 67.8 % (47-70); Platelet Count 190 K/mm3 (150-450); RBC Distribution Width CV 13.1 % (11.6-14.6); RBC Distribution Width SD 42.5 fl (35.1-43.9); Red Blood Count 4.57 M/mm3 (4.2-5.4); White Blood Count 5.3 K/mm3 (4.4-11.0)
[2022-07-31 09:55] LABS: Prealbumin 18.7 mg/dL (20.0-40.0)
--- NOTE | 2022-07-31 10:20 | PCM.WC.PN ---
History of Present Illness Date of Service: 07/31/22 Chief Complaint: WOUND CENTER CONSULTATION REFERRING PROVIDER: KYRA Vivar. PROJECT CONSULTANT: Dr. Gregory. Sacral pressure sore, Stage IV. History of Wound: 46-year-old woman who presented to the Wound Center with a sacral pressure sore, Stage IV, and associated osteomyelitis. 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 During this time she was also diagnosed with MS. She developed a sacral pressure sore that was excised and debrided in the operating room in [place] at [facility] in October,. Cultures (soft tissue and bone) showed Peptostreptococcus, Bacteroides, and E. coli. She was treated with IV Ertapenem for the osteomyelitis. 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 At her Wound Center visit last week, 06/26/22, she had a wound culture. It showed Staphylococcus aureus and Corynebacterium striatum. Will start her on Augmentin. She had labs done at last visit as well. Hgb was 12.6. Potassium was 3.5. BUN/Creat was 11/0.50. Prealbumin was 15.3. A CT scan has been ordered and is pending. I was asked to evaluate this patient for surgical options for treatment including HBO. Progress of Wound: The wound is not worsening it staying about the same. MRI has been approved patient can schedule. Patient has finished antibiotics yesterday . Denies any foul dressings or foul drainage bleeds easily with debridement. Patient states wound VAC is still pulling a lot of serous material. Slight decrease in depth Subjective Subjective Moving along with HBO and getting things rolling patient seems satisfied with outcomes Objective Data Objective Data We will continue using the wound VAC we will see what the MRI shows and consult again with Dr. Gregory after that and then get going on HBO if we can. We will also repeat her prealbumin and CBC see how things are rolling on that and to go on her labs Vital Signs: Vital Signs Temp Pulse Resp BP O2 Del Method 97.2 F L 75 16 113/32 L Room Air 07/31/22 07:56 07/31/22 07:56 07/24/22 08:04 07/31/22 07:56 07/24/22 08:04 Oxygen Delivery Method Room Air Weight: 142 lb Body Mass Index (BMI) 22.2 Lab / Micro Data Attestation: I reviewed the patient's lab results. Result Diagrams: 07/31/22 08:56 Labs: Laboratory Results - last 24 hr 07/31/22 08:56: WBC 5.3, RBC 4.57, Hgb 12.9, Hct 40.6, MCV 88.8, MCH 28.2, MCHC 31.8 L, RDW Std Deviation 42.5, RDW Coeff of Loki 13.1, Plt Count 190, MPV 9.3, Immature Gran % (Auto) 0.400, Neut % (Auto) 67.8, Lymph % (Auto) 22.0, [place] % (Auto) 7.3, Eos % (Auto) 1.9, Baso % (Auto) 0.6, Absolute Neuts (auto) 3.6, Absolute Lymphs (auto) 1.17, Nucleated RBC % 0 07/31/22 08:56: Prealbumin 18.7 L Physical Exam Const oriented x3 General Appearance: cooperative Exam Limitations: no limitations HEENT normocephalic Head and Scalp: normal to inspection Face and Sinus: normal facial exam Nose: external nose normal General Ear: hearing grossly impaired External Ear: external ears normal Mouth: oral and palatal mucosa normal Eyes PERRL General Eye: normal appearance of both eyes Neck full ROM General: normal visual inspection Resp normal respiratory effort Effort and Inspection: able to speak in complete sentences Auscultation: clear to auscultation bilaterally Cardio regular rate and regular rhythm Palpation: normal PMI Rate: regular rate Rhythm: regular rhythm GI Auscultation: normoactive bowel sounds Palpation: soft and no hepatosplenomegaly Back/Spine Cervical Spine: cervical ROM normal Thoracic Spine / Upper Back: normal to inspection Lumbar Spine / Lower Back: normal to inspection Extremity normal to inspection General Extremity: normal exam except as noted Skin no rashes or lesions noted Wounds: wounds noted Wound Narrative: Stage IV sacral wound with tunneling Hair: normal Nails: normal Neuro oriented x3 Psych Appearance: grossly normal Speech: normal speech Thought Content: normal thought content Judgement: judgement good Debridement Note Debridement Note Wound debrided: Sacral decubitus ulcer Wound Grade/Stage: Stage IV Type of Debridement: Excisional debridement Anesthesia Used: 5% Lidocaine Gel Depth: in the subcutaneous layer and to muscle Percentage of wound debrided: 100 Instrument Used: 5mm curette Tissue Removed: Fibrin Amount of bleeding with debridement: Mild Bleeding Controlled with: Compression and gauze Patient tolerated procedure: Patient tolerated procedure well Post-Debridement Measurements and Additional Note: Post-Debridement Measurements/Treatment - Nurse 1 - General Ulcer Assessment Start: 07/24/22 08:02 Freq: Status: Active Protocol: BENIGNO Activity Type Activity Date Activity User E-sign Co-sign Detail Recorded Client Recorded Date Recorded By Document 07/24/22 08:04 [facility] [id number] 07/24/22 08:11 [facility] Document 07/31/22 07:56 [place] [id number] 07/31/22 08:05 [place] 07/24/22 07/31/22 08:04 07:56 - Today's Visit Information Type of service Follow-up Visit Follow-up Visit (Physician/MANAGER STRATEGIC SOURCING (Physician/MANAGER STRATEGIC SOURCING ) ) Arrival Mode Wheelchair Wheelchair Transfer Assistance None Transfer Assist (Other) helps pt w/ slide Patient Identification Verified (Name & Yes Yes ) Patient Requires Transmission-Based No No Precautions Height and Weight Body Mass Index (BMI) 22.2 22.2 BMI Classification Normal Normal Vital Signs Temperature (97.8 F-99.1 F) 96.4 F L 97.2 F L Temperature Source Temporal Temporal Pulse Rate (60-100) 83 75 Pulse Location Monitor Monitor Respiratory Rate (12-18) 16 Respiratory rate source Observation Oxygen Delivery Method Room Air Blood Pressure (90/60-120/80) 117/34 L 113/32 L Blood Pressure Mean (mm Hg) 61 59 Source Monitor Monitor Position Sitting Blood Pressure Location Right Arm History Since Last Visit- (Skip if this is Patient's initial visit) Have you changed medications since your No No last visit? Any new allergies or adverse reactions No No Had a fall/change in ADL's that may No No increase risk of falls Signs or symptoms of abuse and/or No No neglect since last visit Have you been in the hospital since your No No last visit? Has dressing in place as prescribed No Yes Has compression in place as prescribed N/A N/A Has offloadiing in place as prescribed N/A Yes Experienced any changes in pain level or No No management Left Footwear Regular Shoe Regular Shoe Right Footwear Regular Shoe Regular Shoe Pain Scale: 0-10 Numeric Is Patient Pain Free? Yes Yes WC - Nurse 1 - General Ulcer Measurement Start: 07/24/22 08:02 Freq: Status: Active Protocol: Activity Type Activity Date Activity User E-sign Co-sign Detail Recorded Client Recorded Date Recorded By Document 07/24/22 08:04 [facility] [id number] 07/24/22 08:11 [facility] Document 07/31/22 07:56 [place] [id number] 07/31/22 08:05 [place] 07/24/22 07/31/22 08:04 07:56 Wound Center Nurse 1 #1- sacral -Combined with other wound No No -Current Size (cm) - Length 1 0.5 -Current Size (cm) - Width 0.2 0.3 -Current Size (cm) - Depth 3.3 1.6 -Total Square Cm 0.2 0.15 -Date of Last Picture (Recall this 07/24/22 07/31/22 field) -Photo Taken Yes Yes -Epithelialization None Present -Tunneling Yes -Tunneling Position (O'clock) 12 12 -Tunneling Distance (cm) 4.1 4.9 -Undermining/Tunneling No No -Circular Undermining No No -Change in Wound Grade/Stage No -Exudate Amt Medium None Present -Exudate Type Serosanguineous Serosanguineous -Wound Margin Distinct, Distinct, Outline Outline Attached Attached -Granulation Amt Large (67-100%) Large (67-100%) -Granulation Quality [place] -Slough/Fibrin No No -Necrosis Amt None Present (0 None Present (0 %) %) -Structure Exposed N/A -Texture (Neda-wound Skin Appearance) Assessed, No Abnormality, Scarring Assessed -Moisture (Neda-wound Skin Appearance) Assessed No Abnormality, Assessed -Color (Neda-wound Skin Appearance) Assessed No Abnormality, Assessed -Temperature (Neda-wound Skin No Abnormality No Abnormality Appearance) (Pt Warm) (Pt Warm) -Tenderness on Palpation (Neda-wound No No Skin Appearance) -Ulcer Cleansing Rinsed/ Soap and Water Irrigated with Saline -Foul Odor after Cleansing No No -Anesthetic Used 4% Lidocaine Solution DEBBI - Nurse 2 - General Ulcer CM Notes Start: 07/24/22 08:02 Freq: Status: Active Protocol: Activity Type Activity Date Activity User E-sign Co-sign Detail Recorded Client Recorded Date Recorded By Document 07/24/22 08:23 MW [id number] 07/24/22 08:25 MW 07/24/22 08:23 Wound Center Nurse 2 -Time 08:24 -Correct Patient Yes -Correct Side, Site, Position Yes -Correct Procedure Yes -Procedure Performed Yes -Type of Procedure Debridement -Clinical Debridement Subcutaneous -Tissue Removed Subcutaneous -Post Debridement (cm) - Length 1.0 -Post Debridement (cm) - Width 0.3 -Post Debridement (cm) - Depth 5.0 -Total Square (Post) (cm) 0.30 -Area of Debridement (cm) - Length 1.0 -Area of Debridement (cm) - Width 0.3 -Total Square (Area) (cm) 0.30 -Tunneling No -Undermining/Tunneling No -Circular Undermining No -Wound/Ulcer Outcome Not Healed -Ulcer Cleansing Rinsed/ Irrigated with Saline -Foul Odor after Cleansing No -Bioengineered Tissue No -Bleeding Controlled with Pressure -Treatment Response Procedure Tolerated Well -Offloading No -Debridement - Subq, 1st 20sq cm Yes Pain Scale: 0-10 Numeric Is Patient Pain Free? Yes - Nurse 3 - General Ulcer D/C NN Start: 07/24/22 08:02 Freq: Status: Active Protocol: Activity Type Activity Date Activity User E-sign Co-sign Detail Recorded Client Recorded Date Recorded By Document 07/24/22 08:33 ML [id number] 07/24/22 08:34 ML Document 07/31/22 08:28 [place] [id number] 07/31/22 08:29 [place] 07/24/22 07/31/22 08:33 08:28 Wound Care Center Nurse 3 #1- sacral -Ulcer Cleansing Soap and Water Rinsed/ Irrigated with Saline -Foul Odor after Cleansing No No -Negative Pressure Wound Therapy Continue Continue -Setting (mmHg) 150 -Negative Pressure is Continuous Continuous -Regranex (If Applicable) Continue -Other Dressing white foam- by cara -NPWT Application Charge NPWT & NPWT & Debridement (nc Debridement (nc ) ) Pain Scale: 0-10 Numeric Is Patient Pain Free? Yes Yes WC - Visit Discharge Discharge Condition Stable Ambulatory Status Ambulatory Transportation Private Auto Medication Reconcilliation completed & Yes provided to patient/care provider Clinical Summary of Care Provided Yes Assessment/Plan Assessment/Plan (1) Sacral decubitus ulcer, stage IV: CODE(S): L89.154 - Pressure ulcer of sacral region, stage 4 PLAN: Wash wound with antibacterial soap such as Hibiclens. Pack with white foam and attach wound VAC at 150 mmHg May change as needed for for fullness of tank or from losing a seal. Get labs drawn will call with results Continue increase protein intake Schedule MRI of the sacral lumbar area for osteomyelitis None we will consult with Dr. Gregory all pending on MRI scan still pending Follow-up 1 week (2) Immobility syndrome (paraplegic): CODE(S): M62.3 - Immobility syndrome (paraplegic) (3) Osteomyelitis: CODE(S): M86.9 - Osteomyelitis, unspecified
[2022-08-07 08:08] VITALS: BP 131/51; PULSE 93; RESP 16; TEMP 36.1; BMI 22.2
--- NOTE | 2022-08-07 09:43 | PCM.WC.PN ---
History of Present Illness Date of Service: 08/07/22 Chief Complaint: WOUND CENTER CONSULTATION REFERRING PROVIDER: KYRA Vivar. HOISTING ENGINE OPERATOR: Dr. Gregory. Sacral pressure sore, Stage IV. History of Wound: 46-year-old woman who presented to the Wound Center with a sacral pressure sore, Stage IV, and associated osteomyelitis. 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 During this time she was also diagnosed with MS. She developed a sacral pressure sore that was excised and debrided in the operating room in [place] at [facility] in October,. Cultures (soft tissue and bone) showed Peptostreptococcus, Bacteroides, and E. coli. She was treated with IV Ertapenem for the osteomyelitis. 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 At her Wound Center visit last week, 06/26/22, she had a wound culture. It showed Staphylococcus aureus and Corynebacterium striatum. Will start her on Augmentin. She had labs done at last visit as well. Hgb was 12.6. Potassium was 3.5. BUN/Creat was 11/0.50. Prealbumin was 15.3. A CT scan has been ordered and is pending. I was asked to evaluate this patient for surgical options for treatment including HBO. Progress of Wound: The wound is not worsening it staying about the same. MRI has been approved patient is scheduled for August 21. Patient has finished antibiotics yesterday . Denies any foul dressings or foul drainage bleeds easily with debridement. Patient states wound VAC is still pulling a lot of serous material. Slight decrease in depth. Prealbumin is up to 18.7 from 15. Subjective Subjective Patient is anxious to get MRI done Objective Data Objective Data Depth is smaller bleeds easily with debridement tolerating treatment well with the wound VAC Vital Signs: Vital Signs Temp Pulse Resp BP O2 Del Method 97 F L 93 16 131/51 H Room Air 08/07/22 08:08 08/07/22 08:08 08/07/22 08:08 08/07/22 08:08 08/07/22 08:08 Oxygen Delivery Method Room Air Weight: 142 lb Body Mass Index (BMI) 22.2 Lab / Micro Data Result Diagrams: 07/31/22 08:56 Physical Exam Const oriented x3 General Appearance: cooperative Exam Limitations: no limitations HEENT normocephalic Head and Scalp: normal to inspection Face and Sinus: normal facial exam Nose: external nose normal General Ear: hearing grossly impaired External Ear: external ears normal Mouth: oral and palatal mucosa normal Eyes PERRL General Eye: normal appearance of both eyes Neck full ROM General: normal visual inspection Resp normal respiratory effort Effort and Inspection: able to speak in complete sentences Auscultation: clear to auscultation bilaterally Cardio regular rate and regular rhythm Palpation: normal PMI Rate: regular rate Rhythm: regular rhythm GI Auscultation: normoactive bowel sounds Palpation: soft and no hepatosplenomegaly Back/Spine Cervical Spine: cervical ROM normal Thoracic Spine / Upper Back: normal to inspection Lumbar Spine / Lower Back: normal to inspection Extremity normal to inspection General Extremity: normal exam except as noted Skin no rashes or lesions noted Wounds: wounds noted Wound Narrative: Stage IV sacral wound with tunneling Hair: normal Nails: normal Neuro oriented x3 Psych Appearance: grossly normal Speech: normal speech Thought Content: normal thought content Judgement: judgement good Debridement Note Debridement Note Wound debrided: Sacral decubitus ulcer Wound Grade/Stage: Stage IV Type of Debridement: Excisional debridement Anesthesia Used: 5% Lidocaine Gel Depth: Down to and including healthy tissue, in the subcutaneous layer and to muscle Percentage of wound debrided: 100 Instrument Used: 5mm curette Tissue Removed: Fibrin Severity: Fat Layer Exposed Amount of bleeding with debridement: Mild Bleeding Controlled with: Compression and gauze Patient tolerated procedure: Patient tolerated procedure well Post-Debridement Measurements and Additional Note: Post-Debridement Measurements/Treatment WC - Nurse 1 - General Ulcer Assessment Start: 07/24/22 08:02 Freq: Status: Active Protocol: BENIGNO Activity Type Activity Date Activity User E-sign Co-sign Detail Recorded Client Recorded Date Recorded By Document 07/24/22 08:04 [facility] [id number] 07/24/22 08:11 [facility] Document 07/31/22 07:56 AL [id number] 07/31/22 08:05 [place] Document 08/07/22 08:08 [facility] [id number] 08/07/22 08:16 [facility] 07/24/22 07/31/22 08/07/22 08:04 07:56 08:08 - Today's Visit Information Type of service Follow-up Visit Follow-up Visit Follow-up Visit (Physician/PHYSICAL THERAPY INSTRUCTOR (Physician/PHYSICAL THERAPY INSTRUCTOR (Physician/PHYSICAL THERAPY INSTRUCTOR ) ) ) Arrival Mode Wheelchair Wheelchair Wheelchair Transfer Assistance None None Transfer Assist (Other) helps pt w/ slide Patient Identification Verified (Name & Yes Yes Yes ) Patient Requires Transmission-Based No No No Precautions Height and Weight Body Mass Index (BMI) 22.2 22.2 22.2 BMI Classification Normal Normal Normal Vital Signs Temperature (97.8 F-99.1 F) 96.4 F L 97.2 F L 97 F L Temperature Source Temporal Temporal Temporal Pulse Rate (60-100) 83 75 93 Pulse Location Monitor Monitor Monitor Respiratory Rate (12-18) 16 16 Respiratory rate source Observation Observation Oxygen Delivery Method Room Air Room Air Blood Pressure (90/60-120/80) 117/34 L 113/32 L 131/51 H Blood Pressure Mean (mm Hg) 61 59 77 Source Monitor Monitor Monitor Position Sitting Sitting Blood Pressure Location Right Arm Left Arm History Since Last Visit- (Skip if this is Patient's initial visit) Have you changed medications since your No No Yes last visit? Any new allergies or adverse reactions No No No Had a fall/change in ADL's that may No No No increase risk of falls Signs or symptoms of abuse and/or No No No neglect since last visit Have you been in the hospital since your No No No last visit? Has dressing in place as prescribed No Yes No Has compression in place as prescribed N/A N/A N/A Has offloadiing in place as prescribed N/A Yes N/A Experienced any changes in pain level or No No No management Left Footwear Regular Shoe Regular Shoe Regular Shoe Right Footwear Regular Shoe Regular Shoe Regular Shoe Pain Scale: 0-10 Numeric Is Patient Pain Free? Yes Yes Yes - Nurse 1 - General Ulcer Measurement Start: 07/24/22 08:02 Freq: Status: Active Protocol: Activity Type Activity Date Activity User E-sign Co-sign Detail Recorded Client Recorded Date Recorded By Document 07/24/22 08:04 [facility] [id number] 07/24/22 08:11 [facility] Document 07/31/22 07:56 AL [id number] 07/31/22 08:05 AL Document 08/07/22 08:08 [facility] [id number] 08/07/22 08:16 [facility] 07/24/22 07/31/22 08/07/22 08:04 07:56 08:08 Wound Center Nurse 1 #1- sacral -Combined with other wound No No No -Current Size (cm) - Length 1 0.5 0.5 -Current Size (cm) - Width 0.2 0.3 0.2 -Current Size (cm) - Depth 3.3 1.6 3.8 -Total Square Cm 0.2 0.15 0.10 -Date of Last Picture (Recall this 07/24/22 07/31/22 08/07/22 field) -Photo Taken Yes Yes Yes -Epithelialization None Present None Present -Tunneling Yes -Tunneling Position (O'clock) 12 12 -Tunneling Distance (cm) 4.1 4.9 -Undermining/Tunneling No No -Circular Undermining No No No -Change in Wound Grade/Stage No -Exudate Amt Medium None Present Large -Exudate Type Serosanguineous Serosanguineous Serosanguineous -Wound Margin Distinct, Distinct, Distinct, Outline Outline Outline Attached Attached Attached -Granulation Amt Large (67-100%) Large (67-100%) Large (67-100%) -Granulation Quality Red [place] Red -Slough/Fibrin No No No -Necrosis Amt None Present (0 None Present (0 None Present (0 %) %) %) -Structure Exposed N/A -Texture (Neda-wound Skin Appearance) Assessed, No Abnormality, Assessed, Scarring Assessed Scarring -Moisture (Neda-wound Skin Appearance) Assessed No Abnormality, Assessed Assessed -Color (Neda-wound Skin Appearance) Assessed No Abnormality, Assessed Assessed -Temperature (Neda-wound Skin No Abnormality No Abnormality No Abnormality Appearance) (Pt Warm) (Pt Warm) (Pt Warm) -Tenderness on Palpation (Neda-wound No No No Skin Appearance) -Ulcer Cleansing Rinsed/ Soap and Water Soap and Water Irrigated with Saline -Foul Odor after Cleansing No No No -Anesthetic Used 4% Lidocaine 4% Lidocaine Solution Solution -Wound Comment(s) didn't probe tunnel w/ qtip. DEBBI - Nurse 2 - General Ulcer CM Notes Start: 07/24/22 08:02 Freq: Status: Active Protocol: Activity Type Activity Date Activity User E-sign Co-sign Detail Recorded Client Recorded Date Recorded By Document 07/24/22 08:23 MW [id number] 07/24/22 08:25 MW Document 07/31/22 11:15 PL [id number] 07/31/22 11:16 PL Document 08/07/22 08:24 MW [id number] 08/07/22 08:26 MW 07/24/22 07/31/22 08/07/22 08:23 11:15 08:24 Wound Center Nurse 2 #1- sacral -Time 08:24 08:17 08:25 -Correct Patient Yes Yes Yes -Correct Side, Site, Position Yes Yes Yes -Correct Procedure Yes Yes Yes -Procedure Performed Yes Yes Yes -Type of Procedure Debridement Debridement Debridement -Clinical Debridement Subcutaneous Subcutaneous Subcutaneous -Tissue Removed Subcutaneous Subcutaneous Subcutaneous -Post Debridement (cm) - Length 1.0 1.0 1.0 -Post Debridement (cm) - Width 0.3 0.3 0.2 -Post Debridement (cm) - Depth 5.0 5.4 3.0 -Total Square (Post) (cm) 0.30 0.30 0.20 -Area of Debridement (cm) - Length 1.0 1.0 1.0 -Area of Debridement (cm) - Width 0.3 0.3 0.2 -Total Square (Area) (cm) 0.30 0.30 0.20 -Tunneling No No No -Undermining/Tunneling No No No -Circular Undermining No No No -Wound/Ulcer Outcome Not Healed Not Healed Not Healed -Ulcer Cleansing Rinsed/ Rinsed/ Rinsed/ Irrigated with Irrigated with Irrigated with Saline Saline Saline -Foul Odor after Cleansing No No No -Bioengineered Tissue No No No -Bleeding Controlled with Pressure Pressure Pressure -Treatment Response Procedure Procedure Procedure Tolerated Well Tolerated Well Tolerated Well -Offloading No No -Debridement - Subq, 1st 20sq cm Yes Yes Yes Pain Scale: 0-10 Numeric Is Patient Pain Free? Yes Yes Yes DEBBI - Nurse 3 - General Ulcer D/C NN Start: 07/24/22 08:02 Freq: Status: Active Protocol: Activity Type Activity Date Activity User E-sign Co-sign Detail Recorded Client Recorded Date Recorded By Document 07/24/22 08:33 ML [id number] 07/24/22 08:34 ML Document 07/31/22 08:28 [place] [id number] 07/31/22 08:29 [place] Document 08/07/22 08:44 BMF [id number] 08/07/22 08:45 BMF 07/24/22 07/31/22 08/07/22 08:33 08:28 08:44 Wound Care Center Nurse 3 #1- sacral -Ulcer Cleansing Soap and Water Rinsed/ Rinsed/ Irrigated with Irrigated with Saline Saline -Foul Odor after Cleansing No No No -Negative Pressure Wound Therapy Continue Continue Continue -Setting (mmHg) 150 150 -Negative Pressure is Continuous Continuous Continuous -Regranex (If Applicable) Continue -Other Dressing white foam- by cara -NPWT Application Charge NPWT & NPWT & NPWT & Debridement (nc Debridement (nc Debridement (nc ) ) ) Treatment Response Procedure Tolerated Well Pain Scale: 0-10 Numeric Is Patient Pain Free? Yes Yes Yes WC - Visit Discharge Discharge Condition Stable Stable Ambulatory Status Ambulatory Wheelchair Transportation Private Auto [facility] Reconcilliation completed & Yes provided to patient/care provider Clinical Summary of Care Provided Yes Assessment/Plan Assessment/Plan (1) Sacral decubitus ulcer, stage IV: CODE(S): L89.154 - Pressure ulcer of sacral region, stage 4 PLAN: Wash wound with antibacterial soap such as Hibiclens. Pack with white foam and attach wound VAC at 150 mmHg May change as needed for for fullness of tank or from losing a seal. Continue increase protein intake Schedule MRI of the sacral lumbar area for osteomyelitis August 21 None we will consult with Dr. Gregory all pending on MRI scan still pending Follow-up 1 week (2) Immobility syndrome (paraplegic): CODE(S): M62.3 - Immobility syndrome (paraplegic) (3) Osteomyelitis: CODE(S): M86.9 - Osteomyelitis, unspecified
[2022-08-14 08:23] VITALS: BP 105/34; PULSE 77; TEMP 35.9; BMI 22.2
[2022-08-14 08:44] VITALS: BMI 22.8
--- NOTE | 2022-08-14 09:18 | PN.PCM_ITS ---
History of Present Illness Date of Service: 08/14/22 Chief Complaint: WOUND CENTER CONSULTATION REFERRING PROVIDER: KYRA Vivar. AIRSET MOLDER: Dr. Gregory. Sacral pressure sore, Stage IV. History of Wound: 46-year-old woman who presented to the Wound Center with a sacral pressure sore, Stage IV, and associated osteomyelitis. 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 During this time she was also diagnosed with MS. She developed a sacral pressure sore that was excised and debrided in the operating room in [place] at [facility] in October,. Cultures (soft tissue and bone) showed Peptostreptococcus, Bacteroides, and E. coli. She was treated with IV Ertapenem for the osteomyelitis. 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 At her Wound Center visit last week, 06/26/22, she had a wound culture. It showed Staphylococcus aureus and Corynebacterium striatum. Will start her on Augmentin. She had labs done at last visit as well. Hgb was 12.6. Potassium was 3.5. BUN/Creat was 11/0.50. Prealbumin was 15.3. A CT scan has been ordered and is pending. I was asked to evaluate this patient for surgical options for treatment i ncluding HBO. Progress of Wound: The wound is not worsening it staying about the same. MRI has been approved patient is scheduled for August 21. Patient states she is getting a lot more discharge of serous in her canister this week.. Denies any foul dressings or foul drainage bleeds easily with debridement. Depth is the same. Prealbumin is up to 18.7 from 15. Subjective Subjective Patient is anxious about having her MRI and what will happen next. Objective Data Objective Data I will be absent due to ACLS next week we will offer her a nurse visit to reapply VAC and to check things out. She is to continue at 150 mmHg compression . She has been off antibiotic therapy for 1 week we will reculture her wound. Vital Signs: Vital Signs Temp Pulse Resp BP O2 Del Method 96.7 F L 77 16 105/34 L Room Air 08/14/22 08:23 08/14/22 08:23 08/07/22 08:08 08/14/22 08:23 08/07/22 08:08 Oxygen Delivery Method Room Air Weight: 145 lb 9.6 oz Body Mass Index (BMI) 22.8 Lab / Micro Data Result Diagrams: 07/31/22 08:56 Physical Exam Const oriented x3 General Appearance: cooperative Exam Limitations: no limitations HEENT normocephalic Head and Scalp: normal to inspection Face and Sinus: normal facial exam Nose: external nose normal General Ear: hearing grossly impaired External Ear: external ears normal Mouth: oral and palatal mucosa normal Eyes PERRL General Eye: normal appearance of both eyes Neck full ROM General: normal visual inspection Resp normal respiratory effort Effort and Inspection: able to speak in complete sentences Auscultation: clear to auscultation bilaterally Cardio regular rate and regular rhythm Palpation: normal PMI Rate: regular rate Rhythm: regular rhythm GI Auscultation: normoactive bowel sounds Palpation: soft and no hepatosplenomegaly Back/Spine Cervical Spine: cervical ROM normal Thoracic Spine / Upper Back: normal to inspection Lumbar Spine / Lower Back: normal to inspection Extremity normal to inspection General Extremity: normal exam except as noted Skin no rashes or lesions noted Wounds: wounds noted Wound Narrative: Stage IV sacral wound with tunneling Hair: normal Nails: normal Neuro oriented x3 Psych Appearance: grossly normal Speech: normal speech Thought Content: normal thought content Judgement: judgement good Debridement Note Debridement Note Wound debrided: Sacral decubitus ulcer Wound Grade/Stage: Stage IV Type of Debridement: Excisional debridement Anesthesia Used: 5% Lidocaine Gel Depth: to muscle and to bone Percentage of wound debrided: 100 Instrument Used: 5mm curette Tissue Removed: Fibrin Severity: Fat Layer Exposed Amount of bleeding with debridement: Moderate Bleeding Controlled with: Compression and gauze Patient tolerated procedure: Patient tolerated procedure well Post-Debridement Measurements and Additional Note: Post-Debridement Measurements/Treatment WC - Nurse 1 - General Ulcer Assessment Start: 07/24/22 08:02 Freq: Status: Active Protocol: BENIGNO Activity Type Activity Date Activity User E-sign Co-sign Detail Recorded Client Recorded Date Recorded By Document 07/24/22 08:04 [facility] [id number] 07/24/22 08:11 [facility] Document 07/31/22 07:56 [place] [id number] 07/31/22 08:05 [place] Document 08/07/22 08:08 [facility] [id number] 08/07/22 08:16 BM Document 08/14/22 08:23 [place] [id number] 08/14/22 08:26 [place] Document 08/14/22 08:44 [facility] [id number] 08/14/22 08:45 [facility] 07/24/22 07/31/22 08/07/22 08:04 07:56 08:08 WC - Today's Visit Information Type of service Follow-up Visit Follow-up Visit Follow-up Visit (Physician/METAL FENCE ERECTOR (Physician/METAL FENCE ERECTOR (Physician/METAL FENCE ERECTOR ) ) ) Arrival Mode Wheelchair Wheelchair Wheelchair Transfer Assistance None None Transfer Assist (Other) helps pt w/ slide Patient Identification Verified (Name & Yes Yes Yes ) Patient Requires Transmission-Based No No No Precautions Height and Weight Height Weight Weight in Pounds Weight Measurement Method Body Mass Index (BMI) 22.2 22.2 22.2 BMI Classification Normal Normal Normal BSA - David Vital Signs Temperature (97.8 F-99.1 F) 96.4 F L 97.2 F L 97 F L Temperature Source Temporal Temporal Temporal Pulse Rate (60-100) 83 75 93 Pulse Location Monitor Monitor Monitor Respiratory Rate (12-18) 16 16 Respiratory rate source Observation Observation Oxygen Delivery Method Room Air Room Air Blood Pressure (90/60-120/80) 117/34 L 113/32 L 131/51 H Blood Pressure Mean (mm Hg) 61 59 77 Source Monitor Monitor Monitor Position Sitting Sitting Blood Pressure Location Right Arm Left Arm History Since Last Visit- (Skip if this is Patient's initial visit) Have you changed medications since your No No Yes last visit? Any new allergies or adverse reactions No No No Had a fall/change in ADL's that may No No No increase risk of falls Signs or symptoms of abuse and/or No No No neglect since last visit Have you been in the hospital since your No No No last visit? Has dressing in place as prescribed No Yes No Has compression in place as prescribed N/A N/A N/A Has offloadiing in place as prescribed N/A Yes N/A Experienced any changes in pain level or No No No management Left Footwear Regular Shoe Regular Shoe Regular Shoe Right Footwear Regular Shoe Regular Shoe Regular Shoe Pain Scale: 0-10 Numeric Is Patient Pain Free? Yes Yes Yes 08/14/22 08/14/22 08:23 08:44 - Today's Visit Information Type of service Follow-up Visit (Physician/METAL FENCE ERECTOR ) Arrival Mode Wheelchair Transfer Assistance Transfer Board Transfer Assist (Other) Patient Identification Verified (Name & Yes ) Patient Requires Transmission-Based Precautions Height and Weight Height 5 ft 7 in Weight 145 lb 9.6 oz Weight in Pounds 145.6 lbs Weight Measurement Method Stated by Patient Body Mass Index (BMI) 22.2 22.8 BMI Classification Normal Normal BSA - David 1.77 Vital Signs Temperature (97.8 F-99.1 F) 96.7 F L Temperature Source Temporal Pulse Rate (60-100) 77 Pulse Location Monitor Respiratory Rate (12-18) Respiratory rate source Oxygen Delivery Method Blood Pressure (90/60-120/80) 105/34 L Blood Pressure Mean (mm Hg) 57 Source Monitor Position Blood Pressure Location History Since Last Visit- (Skip if this is Patient's initial visit) Have you changed medications since your No last visit? Any new allergies or adverse reactions No Had a fall/change in ADL's that may No increase risk of falls Signs or symptoms of abuse and/or No neglect since last visit Have you been in the hospital since your No last visit? Has dressing in place as prescribed Yes Has compression in place as prescribed N/A Has offloadiing in place as prescribed N/A Experienced any changes in pain level or No management Left Footwear Regular Shoe Right Footwear Regular Shoe Pain Scale: 0-10 Numeric Is Patient Pain Free? Yes Yes - Nurse 1 - General Ulcer Measurement Start: 07/24/22 08:02 Freq: Status: Active Protocol: Activity Type Activity Date Activity User E-sign Co-sign Detail Recorded Client Recorded Date Recorded By Document 07/24/22 08:04 [facility] [id number] 07/24/22 08:11 [facility] Document 07/31/22 07:56 [place] [id number] 07/31/22 08:05 [place] Document 08/07/22 08:08 [facility] [id number] 08/07/22 08:16 [facility] Document 08/14/22 08:23 [place] [id number] 08/14/22 08:26 [place] 07/24/22 07/31/22 08/07/22 08:04 07:56 08:08 Wound Center Nurse 1 #1- sacral -Combined with other wound No No No -Current Size (cm) - Length 1 0.5 0.5 -Current Size (cm) - Width 0.2 0.3 0.2 -Current Size (cm) - Depth 3.3 1.6 3.8 -Total Square Cm 0.2 0.15 0.10 -Date of Last Picture (Recall this 07/24/22 07/31/22 08/07/22 field) -Photo Taken Yes Yes Yes -Epithelialization None Present None Present -Tunneling Yes -Tunneling Position (O'clock) 12 12 -Tunneling Distance (cm) 4.1 4.9 -Undermining/Tunneling No No -Circular Undermining No No No -Change in Wound Grade/Stage No -Exudate Amt Medium None Present Large -Exudate Type Serosanguineous Serosanguineous Serosanguineous -Wound Margin Distinct, Distinct, Distinct, Outline Outline Outline Attached Attached Attached -Granulation Amt Large (67-100%) Large (67-100%) Large (67-100%) -Granulation Quality Red [place] Red -Slough/Fibrin No No No -Necrosis Amt None Present (0 None Present (0 None Present (0 %) %) %) -Structure Exposed N/A -Texture (Neda-wound Skin Appearance) Assessed, No Abnormality, Assessed, Scarring Assessed Scarring -Moisture (Neda-wound Skin Appearance) Assessed No Abnormality, Assessed Assessed -Color (Neda-wound Skin Appearance) Assessed No Abnormality, Assessed Assessed -Temperature (Neda-wound Skin No Abnormality No Abnormality No Abnormality Appearance) (Pt Warm) (Pt Warm) (Pt Warm) -Tenderness on Palpation (Neda-wound No No No Skin Appearance) -Ulcer Cleansing Rinsed/ Soap and Water Soap and Water Irrigated with Saline -Foul Odor after Cleansing No No No -Anesthetic Used 4% Lidocaine 4% Lidocaine Solution Solution -Wound Comment(s) didn't probe tunnel w/ qtip. 08/14/22 08:23 Wound Center Nurse 1 #1- sacral -Combined with other wound No -Current Size (cm) - Length 0.5 -Current Size (cm) - Width 0.2 -Current Size (cm) - Depth 3.1 -Total Square Cm 0.10 -Date of Last Picture (Recall this field) -Photo Taken Yes -Epithelialization -Tunneling No -Tunneling Position (O'clock) -Tunneling Distance (cm) -Undermining/Tunneling No -Circular Undermining No -Change in Wound Grade/Stage No -Exudate Amt Large -Exudate Type Serosanguineous -Wound Margin Distinct, Outline Attached -Granulation Amt Large (67-100%) -Granulation Quality [place] -Slough/Fibrin No -Necrosis Amt None Present (0 %) -Structure Exposed N/A -Texture (Neda-wound Skin Appearance) No Abnormality, Assessed -Moisture (Neda-wound Skin Appearance) No Abnormality, Assessed -Color (Neda-wound Skin Appearance) No Abnormality, Assessed -Temperature (Neda-wound Skin No Abnormality Appearance) (Pt Warm) -Tenderness on Palpation (Neda-wound No Skin Appearance) -Ulcer Cleansing Soap and Water -Foul Odor after Cleansing No -Anesthetic Used 5% Lidocaine Gel -Wound Comment(s) WC - Nurse 2 - General Ulcer CM Notes Start: 07/24/22 08:02 Freq: Status: Active Protocol: Activity Type Activity Date Activity User E-sign Co-sign Detail Recorded Client Recorded Date Recorded By Document 07/24/22 08:23 MW [id number] 07/24/22 08:25 MW Document 07/31/22 11:15 PL [id number] 07/31/22 11:16 PL Document 08/07/22 08:24 MW [id number] 08/07/22 08:26 MW Document 08/14/22 08:21 MW [id number] 08/14/22 08:26 MW 07/24/22 07/31/22 08/07/22 08:23 11:15 08:24 Wound Center Nurse 2 #1- sacral -Time 08:24 08:17 08:25 -Correct Patient Yes Yes Yes -Correct Side, Site, Position Yes Yes Yes -Correct Procedure Yes Yes Yes -Procedure Performed Yes Yes Yes -Type of Procedure Debridement Debridement Debridement -Clinical Debridement Subcutaneous Subcutaneous Subcutaneous -Tissue Removed Subcutaneous Subcutaneous Subcutaneous -Post Debridement (cm) - Length 1.0 1.0 1.0 -Post Debridement (cm) - Width 0.3 0.3 0.2 -Post Debridement (cm) - Depth 5.0 5.4 3.0 -Total Square (Post) (cm) 0.30 0.30 0.20 -Area of Debridement (cm) - Length 1.0 1.0 1.0 -Area of Debridement (cm) - Width 0.3 0.3 0.2 -Total Square (Area) (cm) 0.30 0.30 0.20 -Tunneling No No No -Undermining/Tunneling No No No -Circular Undermining No No No -Wound/Ulcer Outcome Not Healed Not Healed Not Healed -Ulcer Cleansing Rinsed/ Rinsed/ Rinsed/ Irrigated with Irrigated with Irrigated with Saline Saline Saline -Foul Odor after Cleansing No No No -Bioengineered Tissue No No No -Bleeding Controlled with Pressure Pressure Pressure -Treatment Response Procedure Procedure Procedure Tolerated Well Tolerated Well Tolerated Well -Offloading No No -Debridement - Subq, 1st 20sq cm Yes Yes Yes Pain Scale: 0-10 Numeric Is Patient Pain Free? Yes Yes Yes 08/14/22 08:21 Wound Center Nurse 2 #1- sacral -Time 08:22 -Correct Patient Yes -Correct Side, Site, Position Yes -Correct Procedure Yes -Procedure Performed Yes -Type of Procedure Debridement -Clinical Debridement Subcutaneous -Tissue Removed Subcutaneous -Post Debridement (cm) - Length 1.0 -Post Debridement (cm) - Width 0.2 -Post Debridement (cm) - Depth 5.5 -Total Square (Post) (cm) 0.20 -Area of Debridement (cm) - Length 1.0 -Area of Debridement (cm) - Width 0.2 -Total Square (Area) (cm) 0.20 -Tunneling No -Undermining/Tunneling No -Circular Undermining No -Wound/Ulcer Outcome Not Healed -Ulcer Cleansing Rinsed/ Irrigated with Saline -Foul Odor after Cleansing No -Bioengineered Tissue No -Bleeding Controlled with Pressure -Treatment Response Procedure Tolerated Well -Offloading No -Debridement - Subq, 1st 20sq cm Yes Pain Scale: 0-10 Numeric Is Patient Pain Free? Yes WC - Nurse 3 - General Ulcer D/C NN Start: 07/24/22 08:02 Freq: Status: Active Protocol: Activity Type Activity Date Activity User E-sign Co-sign Detail Recorded Client Recorded Date Recorded By Document 07/24/22 08:33 ML [id number] 07/24/22 08:34 ML Document 07/31/22 08:28 [place] [id number] 07/31/22 08:29 [place] Document 08/07/22 08:44 [facility] [id number] 08/07/22 08:45 [facility] Document 08/14/22 08:31 AK [id number] 08/14/22 08:33 AK Edit Result 08/14/22 08:31 AK (1) [id number] 08/14/22 08:51 AK (1) #1- sacral - NPWT Application Charge NPWT </= 50 sq cm => NPWT & Debridement ($) => (nc) 07/24/22 07/31/22 08/07/22 08:33 08:28 08:44 Wound Care Center Nurse 3 #1- sacral -Ulcer Cleansing Soap and Water Rinsed/ Rinsed/ Irrigated with Irrigated with Saline Saline -Foul Odor after Cleansing No No No -Negative Pressure Wound Therapy Continue Continue Continue -Setting (mmHg) 150 150 -Negative Pressure is Continuous Continuous Continuous -Regranex (If Applicable) Continue -Other Dressing white foam- by cara -NPWT Application Charge NPWT & NPWT & NPWT & Debridement (nc Debridement (nc Debridement (nc ) ) ) Treatment Response Procedure Tolerated Well Pain Scale: 0-10 Numeric Is Patient Pain Free? Yes Yes Yes WC - Visit Discharge Discharge Condition Stable Stable Ambulatory Status Ambulatory Wheelchair Transportation Private Auto Private Auto Accompanied by husb Medication Reconcilliation completed & Yes provided to patient/care provider Clinical Summary of Care Provided Yes 08/14/22 08:31 Wound Care Center Nurse 3 #1- sacral -Ulcer Cleansing Rinsed/ Irrigated with Saline -Foul Odor after Cleansing No -Negative Pressure Wound Therapy Continue -Setting (mmHg) 150 -Negative Pressure is Continuous -Regranex (If Applicable) -Other Dressing used white foam -NPWT Application Charge NPWT & Debridement (nc ) Treatment Response Pain Scale: 0-10 Numeric Is Patient Pain Free? Yes WC - Visit Discharge Discharge Condition Stable Ambulatory Status Wheelchair Transportation Private Auto Accompanied by Medication Reconcilliation completed & Yes provided to patient/care provider Clinical Summary of Care Provided Yes Assessment/Plan Assessment/Plan (1) Sacral decubitus ulcer, stage IV: CODE(S): L89.154 - Pressure ulcer of sacral region, stage 4 PLAN: Wash wound with antibacterial soap such as Hibiclens. Pack with white foam and attach wound VAC at 150 mmHg May change as needed for for fullness of tank or from losing a seal. Continue increase protein intake Schedule MRI of the sacral lumbar area for osteomyelitis August 21 None we will consult with Dr. Gregory all pending on MRI scan still pending Follow-up 1 week for nurse visit (2) Immobility syndrome (paraplegic): CODE(S): M62.3 - Immobility syndrome (paraplegic) (3) Osteomyelitis: CODE(S): M86.9 - Osteomyelitis, unspecified
[2022-08-21 10:55] VITALS: BP 114/52; PULSE 113; TEMP 35.8; BMI 22.8
== END 2022-08-23 23:59 | disposition home or self-care (01) ==
LOC: WC 10:30
PROVIDERS: PCP Family Medicine; Visit Provider Nurse Practitioner
DX: L89.154 Pressure ulcer of sacral region, stage 4 (principal); M46.28 Osteomyelitis of vertebra, sacral and sacrococcygeal region; M62.3 Immobility syndrome (paraplegic); Z86.16 Personal history of COVID-19
CPT/HCPCS: 11042; 36415; 84134; 85025; 87070; 87075; 87077; 87205; 97605

== ENCOUNTER → 2022-08-21 | Outpatient (CLI) | payer BC, SELFPAY ==
--- NOTE | 2022-08-21 09:15 | MRI_ITS ---
EXAM: MR PELVIS WITHOUT INTRAVENOUS CONTRAST CLINICAL INDICATION: CHRONIC SACRAL WOUND -- Paraplegic, MS TECHNIQUE: Multiplanar and multisequence MR images of the pelvis without intravenous contrast. This report was created using [employer] report [employer] technology. COMPARISON: None. FINDINGS: APPENDIX: No evidence of acute appendicitis. INTRAPERITONEAL SPACE: Normal. No pelvic mass or fluid collection. BLADDER: Normal. REPRODUCTIVE: Uterus is absent. SUBPERITONEAL SPACE: Nonspecific presacral edema is noted. BONES/JOINTS: There is no discrete evidence of osteomyelitis. No obvious communication to the sacral spinal canal. SOFT TISSUES: 2.8 cm wide posterior decubitus ulcer/extends to the base of the coccyx. No pelvic wall hernia. LYMPH NODES: Normal. No enlarged lymph nodes. MRI/Pelvis (Routine) IMPRESSION: 2.8 cm decubitus ulcer at the base of the coccyx without discrete evidence of osteomyelitis. Electronically Signed: Reji Damon MD at 12:36 EDT ,
--- NOTE | 2022-08-21 10:00 | MRI_ITS ---
INDICATION: DECUBITUS ULCER, CONCERN FOR SPINAL INVOLVEMENT -- PARAPLEGIC, MS EXAMINATION: MRI - MR Spine Lumbar W/O Contrast TECHNIQUE: Multiplanar and multisequence MR images of the lumbar spine. IV Contrast Dosage and Agent: None. COMPARISON: None. FINDINGS: VERTEBRAE: Vertebral body heights are preserved. Normal vertebral bodies and posterior elements. VERTEBRAL ALIGNMENT: No spondylolisthesis. There is preservation of the normal lumbar lordosis. CORD: Normal position and signal intensity of the conus medullaris. L1/L2: Normal disc height and morphology. Normal spinal canal, lateral recesses and neuroforamina. L2/L3: Normal disc height and morphology. Normal spinal canal, lateral recesses and neuroforamina. L3/L4: Normal disc height and morphology. Normal spinal canal, lateral recesses and neuroforamina. L4/L5: Normal disc height and morphology. Normal spinal canal, lateral recesses and neuroforamina. L5/S1: Small midline disc herniation at L5-S1 without significant impingement on the adjacent nerve or significant stenosis of the spinal canal. SOFT TISSUES: Unremarkable. MRI/Spine Lumbar (Routine) IMPRESSION: Small midline disc herniation at L5-S1 without significant impingement on the adjacent nerve or significant stenosis of the spinal canal. Electronically Signed: Alfie Sales MD at 7:36 EDT ,
== END | disposition home or self-care (01) ==
PROVIDERS: PCP Family Medicine; Referring Provider Nurse Practitioner; Visit Provider Nurse Practitioner
DX: M86.9 Osteomyelitis, unspecified (principal); L89.159 Pressure ulcer of sacral region, unspecified stage
CPT/HCPCS: 72148; 72195

== ENCOUNTER 2022-09-18 08:00 | Outpatient (RCR) | payer BC, SELFPAY ==
[2022-08-24 00:53] VITALS: BP 114/52; PULSE 113; RESP 16; TEMP 35.8; BMI 22.8
[2022-09-04 08:13] VITALS: BP 117/62; PULSE 111; RESP 20; TEMP 35.9; BMI 22.8
--- NOTE | 2022-09-04 10:35 | PN.PCM_ITS ---
History of Present Illness Date of Service: 09/04/22 Chief Complaint: WOUND CENTER CONSULTATION REFERRING PROVIDER: KYRA Vivar. NUCLEAR CONTROL OPERATOR: Dr. Gregory. Sacral pressure sore, Stage IV. History of Wound: 46-year-old woman who presented to the Wound Center with a sacral pressure sore, Stage IV, and associated osteomyelitis. 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 During this time she was also diagnosed with MS. She developed a sacral pressure sore that was excised and debrided in the operating room in [facility] in October,. Cultures (soft tissue and bone) showed Peptostreptococcus, Bacteroides, and E. coli. She was treated with IV Ertapenem for the osteomyelitis. 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 At her Wound Center visit last week, 06/26/22, she had a wound culture. It showed Staphylococcus aureus and Corynebacterium striatum. Will start her on Augmentin. She had labs done at last visit as well. Hgb was 12.6. Potassium was 3.5. BUN/Creat was 11/0.50. Prealbumin was 15.3 now 18 A MRI scan has been ordered and is back and showing no osteomyelitis. I was asked to evaluate this patient for surgical options for treatment including HBO. Progress of Wound: Today it has been 2 weeks since being seen, because she had insurance problems. The wound is about the same slightly smaller in length. We got the MRI results back and all is negative for osteomyelitis so the HBO treatments will not be possible. Surgery is a big option but she does not want to be bedridden for 6 weeks. She is still working and working out with a PT. She wants to continue with the wound VAC and we discussed her protein levels have to be greater than 18 she needs to get them up and really concentrate on this. She states her weight is only 145 is lower than what it was before she went into the hospital. We will order new labs, in September. Subjective Subjective Patient is okay with this so far that is what we will do we will continue with the wound VACshe states she is getting less in the canister for drainage Objective Data Objective Data Same as above slight change, but still tunneling. We will try to meet her wishes no surgery at this time we will continue the wound VAC at the 150 mmHg pressure and continue following up weekly visits. Discussed increasing protein intake by a lot, which would help her heal. Vital Signs: Vital Signs Temp Pulse Resp BP 96.6 F L 111 H 20 H 117/62 09/04/22 08:13 09/04/22 08:13 09/04/22 08:13 09/04/22 08:13 Weight: 145 lb 9.6 oz Body Mass Index (BMI) 22.8 Lab / Micro Data Attestation: I reviewed the patient's lab results. Physical Exam Const oriented x3 General Appearance: cooperative Exam Limitations: no limitations HEENT normocephalic Head and Scalp: normal to inspection Face and Sinus: normal facial exam Nose: external nose normal General Ear: hearing grossly impaired External Ear: external ears normal Mouth: oral and palatal mucosa normal Eyes PERRL General Eye: normal appearance of both eyes Neck full ROM General: normal visual inspection Resp normal respiratory effort Effort and Inspection: able to speak in complete sentences Auscultation: clear to auscultation bilaterally Cardio regular rate and regular rhythm Palpation: normal PMI Rate: regular rate Rhythm: regular rhythm GI Auscultation: normoactive bowel sounds Palpation: soft and no hepatosplenomegaly Back/Spine Cervical Spine: cervical ROM normal Thoracic Spine / Upper Back: normal to inspection Lumbar Spine / Lower Back: normal to inspection Extremity normal to inspection General Extremity: normal exam except as noted Skin no rashes or lesions noted Wounds: wounds noted Wound Narrative: Stage IV sacral wound with tunneling Hair: normal Nails: normal Neuro oriented x3 Psych Appearance: grossly normal Speech: normal speech Thought Content: normal thought content Judgement: judgement good Debridement Note Debridement Note Wound debrided: Sacral decubitus ulcer Wound Grade/Stage: Stage IV Type of Debridement: Excisional debridement Anesthesia Used: 5% Lidocaine Gel and - Depth: to muscle Percentage of wound debrided: 100 Instrument Used: 5mm curette Tissue Removed: Fibrin Amount of bleeding with debridement: Mild Bleeding Controlled with: Compression and gauze Patient tolerated procedure: Patient tolerated procedure well Post-Debridement Measurements and Additional Note: Post-Debridement Measurements/Treatment WC - Nurse 1 - General Ulcer Assessment Start: 09/04/22 08:13 Freq: Status: Active Protocol: DEBBI.SHAR Activity Type Activity Date Activity User E-sign Co-sign Detail Recorded Client Recorded Date Recorded By Document 09/04/22 08:13 DL [id number] 09/04/22 08:19 DL 09/04/22 08:13 - Today's Visit Information Type of service Follow-up Visit (Physician/MULTI PURPOSE MACHINE OPERATOR ) Arrival Mode Wheelchair Transfer Assistance Manual Transfer Assist (Other) x1 Patient Identification Verified (Name & Yes ) Patient Requires Transmission-Based No Precautions Height and Weight Body Mass Index (BMI) 22.8 BMI Classification Normal Vital Signs Temperature (97.8 F-99.1 F) 96.6 F L Temperature Source Temporal Pulse Rate (60-100) 111 H Pulse Location Monitor Respiratory Rate (12-18) 20 H Respiratory rate source Observation Blood Pressure (90/60-120/80) 117/62 Blood Pressure Mean (mm Hg) 80 Source Monitor History Since Last Visit- (Skip if this is Patient's initial visit) Have you changed medications since your No last visit? Any new allergies or adverse reactions No Had a fall/change in ADL's that may No increase risk of falls Signs or symptoms of abuse and/or No neglect since last visit Have you been in the hospital since your No last visit? Has dressing in place as prescribed Yes Has compression in place as prescribed N/A Has offloadiing in place as prescribed Yes Experienced any changes in pain level or No management Pain Scale: 0-10 Numeric Is Patient Pain Free? Yes - Nurse 1 - General Ulcer Measurement Start: 09/04/22 08:13 Freq: Status: Active Protocol: Activity Type Activity Date Activity User E-sign Co-sign Detail Recorded Client Recorded Date Recorded By Document 09/04/22 08:13 DL [id number] 09/04/22 08:19 DL 09/04/22 08:13 Wound Center Nurse 1 #1- sacral -Current Size (cm) - Length 0.6 -Current Size (cm) - Width 0.2 -Current Size (cm) - Depth 5 -Total Square Cm 0.12 -Photo Taken Yes -Exudate Amt Medium -Exudate Type Serosanguineous -Wound Margin Distinct, Outline Attached -Granulation Amt Small (1-33%) -Granulation Quality [place] -Necrosis Amt Small (1-33%) -Necrotic Tissue Type Adherent Slough -Structure Exposed N/A -Texture (Neda-wound Skin Appearance) Scarring -Moisture (Neda-wound Skin Appearance) No Abnormality -Color (Neda-wound Skin Appearance) No Abnormality -Temperature (Neda-wound Skin No Abnormality Appearance) (Pt Warm) -Ulcer Cleansing Rinsed/ Irrigated with Saline -Foul Odor after Cleansing No WC - Nurse 2 - General Ulcer CM Notes Start: 09/04/22 08:13 Freq: Status: Active Protocol: Activity Type Activity Date Activity User E-sign Co-sign Detail Recorded Client Recorded Date Recorded By Document 09/04/22 08:25 MW [id number] 09/04/22 08:29 MW 09/04/22 08:25 Wound Center Nurse 2 -Time 08:26 -Correct Patient Yes -Correct Side, Site, Position Yes -Correct Procedure Yes -Procedure Performed Yes -Type of Procedure Debridement -Clinical Debridement Subcutaneous -Tissue Removed Subcutaneous -Post Debridement (cm) - Length 1.0 -Post Debridement (cm) - Width 0.2 -Post Debridement (cm) - Depth 5.0 -Total Square (Post) (cm) 0.20 -Area of Debridement (cm) - Length 1.0 -Area of Debridement (cm) - Width 0.2 -Total Square (Area) (cm) 0.20 -Tunneling No -Undermining/Tunneling No -Circular Undermining No -Wound/Ulcer Outcome Not Healed -Ulcer Cleansing Rinsed/ Irrigated with Saline -Foul Odor after Cleansing No -Bioengineered Tissue No -Bleeding Controlled with Pressure -Treatment Response Procedure Tolerated Well -Offloading No -Debridement - Subq, 1st 20sq cm Yes Pain Scale: 0-10 Numeric Is Patient Pain Free? Yes WC - Nurse 3 - General Ulcer D/C NN Start: 09/04/22 08:13 Freq: Status: Active Protocol: Activity Type Activity Date Activity User E-sign Co-sign Detail Recorded Client Recorded Date Recorded By Document 09/04/22 08:44 DL [id number] 09/04/22 08:45 DL 09/04/22 08:44 Wound Care Center Nurse 3 #1- sacral -Ulcer Cleansing Rinsed/ Irrigated with Saline -Foul Odor after Cleansing No -Negative Pressure Wound Therapy Continue -Setting (mmHg) 150 -Negative Pressure is Continuous -Other Covering White foam to tunnel -NPWT Application Charge NPWT </= 50 sq cm ($) Neda-Wound Care Barrier Treatment Response Procedure Tolerated Well Pain Scale: 0-10 Numeric Is Patient Pain Free? Yes WC - Visit Discharge Discharge Condition Stable Ambulatory Status Wheelchair Transportation Private Auto Accompanied by Assessment/Plan Assessment/Plan (1) Sacral decubitus ulcer, stage IV: CODE(S): L89.154 - Pressure ulcer of sacral region, stage 4 PLAN: Wash wound with antibacterial soap such as Hibiclens. Pack with white foam and attach wound VAC at 150 mmHg May change as needed for for fullness of tank or from losing a seal. Continue increase protein intake Follow-up 1 week (2) Immobility syndrome (paraplegic): CODE(S): M62.3 - Immobility syndrome (paraplegic) (3) Osteomyelitis: CODE(S): M86.9 - Osteomyelitis, unspecified
[2022-09-11 08:00] VITALS: BP 116/46; PULSE 77; RESP 16; TEMP 36; BMI 22.8
--- NOTE | 2022-09-11 09:01 | PCM.WC.PN ---
History of Present Illness Date of Service: 09/11/22 Chief Complaint: WOUND CENTER CONSULTATION REFERRING PROVIDER: KYRA Vivar. CREDIT SUPPORT SPECIALIST: Dr. Gregory. Sacral pressure sore, Stage IV. History of Wound: 46-year-old woman who presented to the Wound Center with a sacral pressure sore, Stage IV, and associated osteomyelitis. 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 During this time she was also diagnosed with MS. She developed a sacral pressure sore that was excised and debrided in the operating room in [place] at [facility] in October,. Cultures (soft tissue and bone) showed Peptostreptococcus, Bacteroides, and E. coli. She was treated with IV Ertapenem for the osteomyelitis. 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 At her Wound Center visit last week, 06/26/22, she had a wound culture. It showed Staphylococcus aureus and Corynebacterium striatum. Will start her on Augmentin. She had labs done at last visit as well. Hgb was 12.6. Potassium was 3.5. BUN/Creat was 11/0.50. Prealbumin was 15.3 now 18 A MRI scan has been ordered and is back and showing no osteomyelitis. I was asked to evaluate this patient for surgical options for treatment including HBO. Progress of Wound: The wound is about the same with a slight odor. We got the MRI results back and all is negative for osteomyelitis so the HBO treatments will not be possible. Surgery is a big option but she does not want to be bedridden for 6 weeks. She is still working and working out with a PT. She wants to continue with the wound VAC and we discussed her protein levels have to be greater than 18 she needs to get them up and really concentrate on this. She states her weight is only 145 is lower than what it was before she went into the hospital. We will order new labs, in September. We will obtain cultures today Subjective Subjective Patient is tolerating treatments well and has no concerns at this point Objective Data Objective Data Wound itself debrides easily and bleeds easily had a slight odor and noticed when doing the debridement we will follow-up with a culture Vital Signs: Vital Signs Temp Pulse Resp BP O2 Del Method 96.8 F L 77 16 116/46 L Room Air 09/11/22 08:00 09/11/22 08:00 09/11/22 08:00 09/11/22 08:00 09/11/22 08:00 Oxygen Delivery Method Room Air Weight: 145 lb 9.6 oz Body Mass Index (BMI) 22.8 Lab / Micro Data Attestation: I reviewed the patient's lab results. Physical Exam Const oriented x3 General Appearance: cooperative Exam Limitations: no limitations HEENT normocephalic Head and Scalp: normal to inspection Face and Sinus: normal facial exam Nose: external nose normal General Ear: hearing grossly impaired External Ear: external ears normal Mouth: oral and palatal mucosa normal Eyes PERRL General Eye: normal appearance of both eyes Neck full ROM General: normal visual inspection Resp normal respiratory effort Effort and Inspection: able to speak in complete sentences Auscultation: clear to auscultation bilaterally Cardio regular rate and regular rhythm Palpation: normal PMI Rate: regular rate Rhythm: regular rhythm GI Auscultation: normoactive bowel sounds Palpation: soft and no hepatosplenomegaly Back/Spine Cervical Spine: cervical ROM normal Thoracic Spine / Upper Back: normal to inspection Lumbar Spine / Lower Back: normal to inspection Extremity normal to inspection General Extremity: normal exam except as noted Skin no rashes or lesions noted Wounds: wounds noted Wound Narrative: Stage IV sacral wound with tunneling Hair: normal Nails: normal Neuro oriented x3 Psych Appearance: grossly normal Speech: normal speech Thought Content: normal thought content Judgement: judgement good Debridement Note Debridement Note Wound debrided: Sacral wound decubitus ulcer Wound Grade/Stage: Stage IV Type of Debridement: Excisional debridement Anesthesia Used: 5% Lidocaine Gel Depth: in the subcutaneous layer and to muscle Percentage of wound debrided: 100 Instrument Used: 5mm curette Tissue Removed: Fibrin Amount of bleeding with debridement: Mild Bleeding Controlled with: Compression and gauze Patient tolerated procedure: Patient tolerated procedure well Post-Debridement Measurements and Additional Note: Post-Debridement Measurements/Treatment DEBBI - Nurse 1 - General Ulcer Assessment Start: 09/04/22 08:13 Freq: Status: Active Protocol: BENIGNO Activity Type Activity Date Activity User E-sign Co-sign Detail Recorded Client Recorded Date Recorded By Document 09/04/22 08:13 DL [id number] 09/04/22 08:19 DL Document 09/11/22 08:00 BMF [id number] 09/11/22 08:07 BMF 09/04/22 09/11/22 08:13 08:00 - Today's Visit Information Type of service Follow-up Visit Follow-up Visit (Physician/PRODUCTION TEAM ADVISOR (Physician/PRODUCTION TEAM ADVISOR ) ) Arrival Mode Wheelchair Wheelchair Transfer Assistance Manual Other Transfer Assist (Other) x1 assists Accompanied by Patient Identification Verified (Name & Yes Yes ) Patient Requires Transmission-Based No No Precautions Height and Weight Body Mass Index (BMI) 22.8 22.8 BMI Classification Normal Normal Vital Signs Temperature (97.8 F-99.1 F) 96.6 F L 96.8 F L Temperature Source Temporal Temporal Pulse Rate (60-100) 111 H 77 Pulse Location Monitor Monitor Respiratory Rate (12-18) 20 H 16 Respiratory rate source Observation Observation Oxygen Delivery Method Room Air Blood Pressure (90/60-120/80) 117/62 116/46 L Blood Pressure Mean (mm Hg) 80 69 Source Monitor Monitor Position Sitting Blood Pressure Location Left Arm History Since Last Visit- (Skip if this is Patient's initial visit) Have you changed medications since your No No last visit? Any new allergies or adverse reactions No No Had a fall/change in ADL's that may No No increase risk of falls Signs or symptoms of abuse and/or No No neglect since last visit Have you been in the hospital since your No No last visit? Has dressing in place as prescribed Yes Yes Has compression in place as prescribed N/A N/A Has offloadiing in place as prescribed Yes N/A Experienced any changes in pain level or No No management Left Footwear Regular Shoe Right Footwear Regular Shoe Pain Scale: 0-10 Numeric Is Patient Pain Free? Yes Yes - Nurse 1 - General Ulcer Measurement Start: 09/04/22 08:13 Freq: Status: Active Protocol: Activity Type Activity Date Activity User E-sign Co-sign Detail Recorded Client Recorded Date Recorded By Document 09/04/22 08:13 DL [id number] 09/04/22 08:19 DL Document 09/11/22 08:00 BMF [id number] 09/11/22 08:07 BMF 09/04/22 09/11/22 08:13 08:00 Wound Center Nurse 1 #1- sacral -Combined with other wound No -Current Size (cm) - Length 0.6 0.5 -Current Size (cm) - Width 0.2 0.3 -Current Size (cm) - Depth 5 3.6 -Total Square Cm 0.12 0.15 -Date of Last Picture (Recall this 09/11/22 field) -Photo Taken Yes Yes -Epithelialization None Present -Tunneling No -Undermining/Tunneling No -Circular Undermining No -Exudate Amt Medium Medium -Exudate Type Serosanguineous Serosanguineous -Wound Margin Distinct, Distinct, Outline Outline Attached Attached -Granulation Amt Small (1-33%) Large (67-100%) -Granulation Quality [place] Red -Slough/Fibrin No -Necrosis Amt Small (1-33%) None Present (0 %) -Necrotic Tissue Type Adherent Slough -Structure Exposed N/A -Texture (Neda-wound Skin Appearance) Scarring Assessed, Scarring -Moisture (Neda-wound Skin Appearance) No Abnormality Assessed -Color (Neda-wound Skin Appearance) No Abnormality Assessed -Temperature (Neda-wound Skin No Abnormality No Abnormality Appearance) (Pt Warm) (Pt Warm) -Tenderness on Palpation (Neda-wound No Skin Appearance) -Ulcer Cleansing Rinsed/ Rinsed/ Irrigated with Irrigated with Saline Saline -Foul Odor after Cleansing No No -Anesthetic Used 5% Lidocaine Gel WC - Nurse 2 - General Ulcer CM Notes Start: 09/04/22 08:13 Freq: Status: Active Protocol: Activity Type Activity Date Activity User E-sign Co-sign Detail Recorded Client Recorded Date Recorded By Document 09/04/22 08:25 MW [id number] 09/04/22 08:29 MW Document 09/11/22 08:19 MW [id number] 09/11/22 08:26 MW 09/04/22 09/11/22 08:25 08:19 Wound Center Nurse 2 #1- sacral -Time 08:26 08:19 -Correct Patient Yes Yes -Correct Side, Site, Position Yes Yes -Correct Procedure Yes Yes -Procedure Performed Yes Yes -Type of Procedure Debridement Debridement -Clinical Debridement Subcutaneous Subcutaneous -Tissue Removed Subcutaneous Subcutaneous -Post Debridement (cm) - Length 1.0 0.5 -Post Debridement (cm) - Width 0.2 0.3 -Post Debridement (cm) - Depth 5.0 5.0 -Total Square (Post) (cm) 0.20 0.15 -Area of Debridement (cm) - Length 1.0 0.5 -Area of Debridement (cm) - Width 0.2 0.3 -Total Square (Area) (cm) 0.20 0.15 -Tunneling No No -Undermining/Tunneling No No -Circular Undermining No No -Wound/Ulcer Outcome Not Healed Not Healed -Ulcer Cleansing Rinsed/ Rinsed/ Irrigated with Irrigated with Saline Saline -Foul Odor after Cleansing No No -Bioengineered Tissue No No -Bleeding Controlled with Pressure Pressure -Treatment Response Procedure Procedure Tolerated Well Tolerated Well -Offloading No No -Debridement - Subq, 1st 20sq cm Yes Yes Pain Scale: 0-10 Numeric Is Patient Pain Free? Yes Yes - Nurse 3 - General Ulcer D/C NN Start: 09/04/22 08:13 Freq: Status: Active Protocol: Activity Type Activity Date Activity User E-sign Co-sign Detail Recorded Client Recorded Date Recorded By Document 09/04/22 08:44 DL [id number] 09/04/22 08:45 DL Edit Result 09/04/22 08:44 DL (1) [id number] 09/05/22 07:00 PL Document 09/11/22 08:32 RB [id number] 09/11/22 08:33 RB (1) #1- sacral - NPWT Application Charge NPWT </= 50 sq cm => NPWT & Debridement ($) => (nc) 09/04/22 09/11/22 08:44 08:32 Wound Care Center Nurse 3 #1- sacral -Ulcer Cleansing Rinsed/ Rinsed/ Irrigated with Irrigated with Saline Saline -Foul Odor after Cleansing No -Negative Pressure Wound Therapy Continue Continue -Setting (mmHg) 150 150 -Negative Pressure is Continuous Continuous -Other Dressing white foam to tunnel -Other Covering White foam to tunnel -NPWT Application Charge NPWT & NPWT </= 50 sq Debridement (nc cm ($) ) Neda-Wound Care Barrier Barrier Treatment Response Procedure Procedure Tolerated Well Tolerated Well Pain Scale: 0-10 Numeric Is Patient Pain Free? Yes Yes - Visit Discharge Discharge Condition Stable Stable Ambulatory Status Wheelchair Wheelchair Transportation Private Auto Private Auto Accompanied by Medication Reconcilliation completed & No provided to patient/care provider Clinical Summary of Care Provided Yes Assessment/Plan Assessment/Plan (1) Sacral decubitus ulcer, stage IV: CODE(S): L89.154 - Pressure ulcer of sacral region, stage 4 PLAN: Wash wound with antibacterial soap such as Hibiclens. Pack with white foam and attach wound VAC at 150 mmHg May change as needed for for fullness of tank or from losing a seal. Continue increase protein intake Cultures obtained will call with results Follow-up 1 week (2) Immobility syndrome (paraplegic): CODE(S): M62.3 - Immobility syndrome (paraplegic) (3) Osteomyelitis: CODE(S): M86.9 - Osteomyelitis, unspecified
[2022-09-18 08:20] VITALS: BP 123/71; PULSE 63; RESP 18; TEMP 35.7; BMI 22.8
--- NOTE | 2022-09-18 09:58 | PN.PCM_ITS ---
History of Present Illness Date of Service: 09/18/22 Chief Complaint: WOUND CENTER CONSULTATION REFERRING PROVIDER: KYRA Vivar. PUPPET MASTER: Dr. Gregory. Sacral pressure sore, Stage IV. History of Wound: 46-year-old woman who presented to the Wound Center with a sacral pressure sore, Stage IV, and associated osteomyelitis. 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 During this time she was also diagnosed with MS. She developed a sacral pressure sore that was excised and debrided in the operating room in [place] at [facility] in October,. Cultures (soft tissue and bone) showed Peptostreptococcus, Bacteroides, and E. coli. She was treated with IV Ertapenem for the osteomyelitis. 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 At her Wound Center visit last week, 06/26/22, she had a wound culture. It showed Staphylococcus aureus and Corynebacterium striatum. Will start her on Augmentin. She had labs done at last visit as well. Hgb was 12.6. Potassium was 3.5. BUN/Creat was 11/0.50. Prealbumin was 15.3 now 18 A MRI scan has been ordered and is back and showing no osteomyelitis. I was asked to evaluate this patient for surgical options for treatment including HBO. Progress of Wound: The wound is about the same . We got the MRI results back and all is negative for osteomyelitis so the HBO treatments will not be possible. Surgery is a big option but she does not want to be bedridden for 6 weeks. She is still working and working out with a PT. She wants to continue with the wound VAC and we discussed her protein levels have to be greater than 18 she needs to get them up and really concentrate on this. She states her weight is only 145 is lower than what it was before she went into the hospital. We will order new labs, in September. She was positive for anaerobes and will be started on vancomycin and metronidazole for her cocci Subjective Subjective Patient does not understand how she can get an infection so deep inside when it is covered all the time but she do get cross-contamination from just doing dressing changes Objective Data Objective Data As written above we will continue with the new antibiotics and hopefully that will help with length and see some improvement Vital Signs: Vital Signs Temp Pulse Resp BP O2 Del Method 96.2 F L 63 18 123/71 H Room Air 09/18/22 08:20 09/18/22 08:20 09/18/22 08:20 09/18/22 08:20 09/11/22 08:00 Oxygen Delivery Method Room Air Weight: 145 lb 9.6 oz Body Mass Index (BMI) 22.8 Lab / Micro Data Attestation: I reviewed the patient's lab results. Micro: Microbiology 09/11/22 08:20 Wound - Sacral Gram Stain - Final 09/11/22 08:20 Wound - Sacral Wound Culture - Final Enterococcus faecalis Strep salivarius sp salivarius Corynebacterium striatum 09/11/22 08:20 Wound - Sacral Anaerobic Culture - Final Clostridium clostridioforme Physical Exam Const oriented x3 General Appearance: cooperative Exam Limitations: no limitations HEENT normocephalic Head and Scalp: normal to inspection Face and Sinus: normal facial exam Nose: external nose normal General Ear: hearing grossly impaired External Ear: external ears normal Mouth: oral and palatal mucosa normal Eyes PERRL General Eye: normal appearance of both eyes Neck full ROM General: normal visual inspection Resp normal respiratory effort Effort and Inspection: able to speak in complete sentences Auscultation: clear to auscultation bilaterally Cardio regular rate and regular rhythm Palpation: normal PMI Rate: regular rate Rhythm: regular rhythm GI Auscultation: normoactive bowel sounds Palpation: soft and no hepatosplenomegaly Back/Spine Cervical Spine: cervical ROM normal Thoracic Spine / Upper Back: normal to inspection Lumbar Spine / Lower Back: normal to inspection Extremity normal to inspection General Extremity: normal exam except as noted Skin no rashes or lesions noted Wounds: wounds noted Wound Narrative: Stage IV sacral wound with tunneling Hair: normal Nails: normal Neuro oriented x3 Psych Appearance: grossly normal Speech: normal speech Thought Content: normal thought content Judgement: judgement good Debridement Note Debridement Note Wound debrided: Sacral stage IV decubitus ulcer Wound Grade/Stage: Stage IV Type of Debridement: Excisional debridement Anesthesia Used: 5% Lidocaine Gel Depth: in the subcutaneous layer Percentage of wound debrided: 100 Instrument Used: 5mm curette Tissue Removed: Fibrin Severity: Fat Layer Exposed Amount of bleeding with debridement: Mild Bleeding Controlled with: Compression and gauze Patient tolerated procedure: Patient tolerated procedure well Post-Debridement Measurements and Additional Note: Post-Debridement Measurements/Treatment WC - Nurse 1 - General Ulcer Assessment Start: 09/04/22 08:13 Freq: Status: Active Protocol: DEBBI.LOWGILDAT Activity Type Activity Date Activity User E-sign Co-sign Detail Recorded Client Recorded Date Recorded By Document 09/04/22 08:13 DL [id number] 09/04/22 08:19 DL Document 09/11/22 08:00 BMF [id number] 09/11/22 08:07 BMF Document 09/18/22 08:20 RB [id number] 09/18/22 08:22 RB 09/04/22 09/11/22 09/18/22 08:13 08:00 08:20 - Today's Visit Information Type of service Follow-up Visit Follow-up Visit Follow-up Visit (Physician/WRAPPER SELECTOR (Physician/WRAPPER SELECTOR (Physician/WRAPPER SELECTOR ) ) ) Arrival Mode Wheelchair Wheelchair Ambulatory Transfer Assistance Manual Other None Transfer Assist (Other) x1 assists Accompanied by Patient Identification Verified (Name & Yes Yes Yes ) Patient Requires Transmission-Based No No No Precautions Height and Weight Body Mass Index (BMI) 22.8 22.8 22.8 BMI Classification Normal Normal Normal Vital Signs Temperature (97.8 F-99.1 F) 96.6 F L 96.8 F L 96.2 F L Temperature Source Temporal Temporal Temporal Pulse Rate (60-100) 111 H 77 63 Pulse Location Monitor Monitor Monitor Respiratory Rate (12-18) 20 H 16 18 Respiratory rate source Observation Observation Observation Oxygen Delivery Method Room Air Blood Pressure (90/60-120/80) 117/62 116/46 L 123/71 H Blood Pressure Mean (mm Hg) 80 69 88 Source Monitor Monitor Monitor Position Sitting Semi-Fowlers Blood Pressure Location Left Arm Left Arm History Since Last Visit- (Skip if this is Patient's initial visit) Have you changed medications since your No No No last visit? Any new allergies or adverse reactions No No No Had a fall/change in ADL's that may No No No increase risk of falls Signs or symptoms of abuse and/or No No No neglect since last visit Have you been in the hospital since your No No No last visit? Has dressing in place as prescribed Yes Yes Yes Has compression in place as prescribed N/A N/A No Has offloadiing in place as prescribed Yes N/A Yes Experienced any changes in pain level or No No No management Left Footwear Regular Shoe Right Footwear Regular Shoe Pain Scale: 0-10 Numeric Is Patient Pain Free? Yes Yes Yes WC - Nurse 1 - General Ulcer Measurement Start: 09/04/22 08:13 Freq: Status: Active Protocol: Activity Type Activity Date Activity User E-sign Co-sign Detail Recorded Client Recorded Date Recorded By Document 09/04/22 08:13 DL [id number] 09/04/22 08:19 DL Document 09/11/22 08:00 BMF [id number] 09/11/22 08:07 BMF Document 09/18/22 08:20 RB [id number] 09/18/22 08:22 RB 09/04/22 09/11/22 09/18/22 08:13 08:00 08:20 Wound Center Nurse 1 #1- sacral -Combined with other wound No No -Current Size (cm) - Length 0.6 0.5 0.5 -Current Size (cm) - Width 0.2 0.3 0.3 -Current Size (cm) - Depth 5 3.6 1.3 -Total Square Cm 0.12 0.15 0.15 -Date of Last Picture (Recall this 09/11/22 field) -Photo Taken Yes Yes -Epithelialization None Present -Tunneling No Yes -Tunneling Position (O'clock) 12 -Tunneling Distance (cm) 3.5 -Undermining/Tunneling No -Circular Undermining No No -Exudate Amt Medium Medium Large -Exudate Type Serosanguineous Serosanguineous Serosanguineous -Wound Margin Distinct, Distinct, Distinct, Outline Outline Outline Attached Attached Attached -Granulation Amt Small (1-33%) Large (67-100%) Medium (34-66%) -Granulation Quality [place] -Slough/Fibrin No Yes -Necrosis Amt Small (1-33%) None Present (0 Medium (34-66%) %) -Necrotic Tissue Type Adherent Slough Adherent Slough -Structure Exposed N/A N/A -Texture (Neda-wound Skin Appearance) Scarring Assessed, Assessed Scarring -Moisture (Neda-wound Skin Appearance) No Abnormality Assessed Assessed -Color (Neda-wound Skin Appearance) No Abnormality Assessed Assessed -Temperature (Neda-wound Skin No Abnormality No Abnormality No Abnormality Appearance) (Pt Warm) (Pt Warm) (Pt Warm) -Tenderness on Palpation (Neda-wound No No Skin Appearance) -Ulcer Cleansing Rinsed/ Rinsed/ Wound Cleanser Irrigated with Irrigated with Saline Saline -Foul Odor after Cleansing No No No -Anesthetic Used 5% Lidocaine Gel WC - Nurse 2 - General Ulcer CM Notes Start: 09/04/22 08:13 Freq: Status: Active Protocol: Activity Type Activity Date Activity User E-sign Co-sign Detail Recorded Client Recorded Date Recorded By Document 09/04/22 08:25 MW [id number] 09/04/22 08:29 MW Document 09/11/22 08:19 MW [id number] 09/11/22 08:26 MW Document 09/18/22 08:24 MW [id number] 09/18/22 08:26 MW 09/04/22 09/11/22 09/18/22 08:25 08:19 08:24 Wound Center Nurse 2 #1- sacral -Time 08:26 08:19 08:25 -Correct Patient Yes Yes Yes -Correct Side, Site, Position Yes Yes Yes -Correct Procedure Yes Yes Yes -Procedure Performed Yes Yes Yes -Type of Procedure Debridement Debridement Debridement -Clinical Debridement Subcutaneous Subcutaneous Subcutaneous -Tissue Removed Subcutaneous Subcutaneous Subcutaneous -Post Debridement (cm) - Length 1.0 0.5 0.5 -Post Debridement (cm) - Width 0.2 0.3 0.3 -Post Debridement (cm) - Depth 5.0 5.0 5.4 -Total Square (Post) (cm) 0.20 0.15 0.15 -Area of Debridement (cm) - Length 1.0 0.5 0.5 -Area of Debridement (cm) - Width 0.2 0.3 0.3 -Total Square (Area) (cm) 0.20 0.15 0.15 -Tunneling No No No -Undermining/Tunneling No No No -Circular Undermining No No No -Wound/Ulcer Outcome Not Healed Not Healed Not Healed -Ulcer Cleansing Rinsed/ Rinsed/ Rinsed/ Irrigated with Irrigated with Irrigated with Saline Saline Saline -Foul Odor after Cleansing No No No -Bioengineered Tissue No No No -Bleeding Controlled with Pressure Pressure Pressure -Treatment Response Procedure Procedure Procedure Tolerated Well Tolerated Well Tolerated Well -Offloading No No No -Debridement - Subq, 1st 20sq cm Yes Yes Yes Pain Scale: 0-10 Numeric Is Patient Pain Free? Yes Yes Yes WC - Nurse 3 - General Ulcer D/C NN Start: 09/04/22 08:13 Freq: Status: Active Protocol: Activity Type Activity Date Activity User E-sign Co-sign Detail Recorded Client Recorded Date Recorded By Document 09/04/22 08:44 DL [id number] 09/04/22 08:45 DL Edit Result 09/04/22 08:44 DL (1) [id number] 09/05/22 07:00 PL Document 09/11/22 08:32 RB [id number] 09/11/22 08:33 RB Edit Result 09/11/22 08:32 RB (2) [id number] 09/12/22 07:26 PL Document 09/18/22 08:51 BMF [id number] 09/18/22 08:52 BMF (1) #1- sacral - NPWT Application Charge NPWT </= 50 sq cm => NPWT & Debridement ($) => (nc) (2) #1- sacral - NPWT Application Charge NPWT </= 50 sq cm => NPWT & Debridement ($) => (nc) 09/04/22 09/11/22 09/18/22 08:44 08:32 08:51 Wound Care Center Nurse 3 #1- sacral -Ulcer Cleansing Rinsed/ Rinsed/ Rinsed/ Irrigated with Irrigated with Irrigated with Saline Saline Saline -Foul Odor after Cleansing No No -Negative Pressure Wound Therapy Continue Continue Continue -Setting (mmHg) 150 150 150 -Negative Pressure is Continuous Continuous Continuous -Other Dressing white foam to VAC APPLIED PER tunnel RB RN -Other Covering White foam to tunnel -NPWT Application Charge NPWT & NPWT & NPWT & Debridement (nc Debridement (nc Debridement (nc ) ) ) Neda-Wound Care Barrier Barrier Treatment Response Procedure Procedure Procedure Tolerated Well Tolerated Well Tolerated Well Pain Scale: 0-10 Numeric Is Patient Pain Free? Yes Yes Yes WC - Visit Discharge Discharge Condition Stable Stable Stable Ambulatory Status Wheelchair Wheelchair Wheelchair Transportation Private Auto Private Auto Private Auto Accompanied by Medication Reconcilliation completed & No provided to patient/care provider Clinical Summary of Care Provided Yes Assessment/Plan Assessment/Plan (1) Sacral decubitus ulcer, stage IV: CODE(S): L89.154 - Pressure ulcer of sacral region, stage 4 PLAN: Wash wound with antibacterial soap such as Hibiclens. Pack with white foam and attach wound VAC at 150 mmHg May change as needed for for fullness of tank or from losing a seal. Continue increase protein intake Start vancomycin 250 twice daily for 14 days Metronidazole 250 3 times daily for 10 days Follow-up 1 week (2) Immobility syndrome (paraplegic): CODE(S): M62.3 - Immobility syndrome (paraplegic) (3) Osteomyelitis: CODE(S): M86.9 - Osteomyelitis, unspecified
--- NOTE | 2022-09-18 13:19 | WC ---
Spoke to patient insurance [employer] concerning prior Authorization needed for ATB Vancomycin ordered per Carla Brown NP. Reference #[id number] for the call. [employer] sales representative stated they have 5 calendar days to make a decision for approval or denial. Patient and Carla [employer] notified.
== END 2022-09-22 23:59 | disposition home or self-care (01) ==
LOC: WC 08:00
PROVIDERS: PCP Family Medicine; Visit Provider Nurse Practitioner
DX: L89.154 Pressure ulcer of sacral region, stage 4 (principal); M46.28 Osteomyelitis of vertebra, sacral and sacrococcygeal region; M62.3 Immobility syndrome (paraplegic)
CPT/HCPCS: 11042; 87070; 87075; 87077; 87186; 87205; 97605

== ENCOUNTER 2022-10-16 08:00 | Outpatient (RCR) | payer BC, SELFPAY ==
[2022-09-23 00:19] VITALS: BP 123/71; PULSE 63; RESP 18; TEMP 35.7; BMI 22.8
[2022-09-25 08:02] VITALS: BP 113/39; PULSE 87; RESP 18; TEMP 36.6; BMI 22.8
--- NOTE | 2022-09-25 08:26 | PCM.WC.PN ---
History of Present Illness Date of Service: 09/25/22 Chief Complaint: WOUND CENTER CONSULTATION REFERRING PROVIDER: KYRA Vivar. EDUCATION INSTRUCTOR: Dr. Gregory. Sacral pressure sore, Stage IV. History of Wound: 46-year-old woman who presented to the Wound Center with a sacral pressure sore, Stage IV, and associated osteomyelitis. 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 During this time she was also diagnosed with MS. She developed a sacral pressure sore that was excised and debrided in the operating room in [place] at [facility] in October,. Cultures (soft tissue and bone) showed Peptostreptococcus, Bacteroides, and E. coli. She was treated with IV Ertapenem for the osteomyelitis. 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 At her Wound Center visit last week, 06/26/22, she had a wound culture. It showed Staphylococcus aureus and Corynebacterium striatum. Will start her on Augmentin. She had labs done at last visit as well. Hgb was 12.6. Potassium was 3.5. BUN/Creat was 11/0.50. Prealbumin was 15.3 now 18 A MRI scan has been ordered and is back and showing no osteomyelitis. I was asked to evaluate this patient for surgical options for treatment including HBO. Progress of Wound: Today the wound depth is 4.0 and improvement from last week of 5.8 cm. Patient is having a hard time getting the vancomycin covered by insurance we are sending her for consult with ID today Patient is taking her metronidazole 3 times a day for 14 days Subjective Subjective Patient is upset with insurance company because they will not pay for it she is try talking to them. Objective Data Objective Data Patient states she gets little drainage of her wound VAC except for serosanguineous. Size is the same but depth is improving. Continue wound VAC at 125 mmHg compression follow-up in 1 week Vital Signs: Vital Signs Temp Pulse Resp BP 97.8 F 87 18 113/39 L 09/25/22 08:02 09/25/22 08:02 09/25/22 08:02 09/25/22 08:02 Weight: 145 lb 9.6 oz Body Mass Index (BMI) 22.8 Lab / Micro Data Attestation: I reviewed the patient's lab results. Physical Exam Const oriented x3 General Appearance: cooperative Exam Limitations: no limitations HEENT normocephalic Head and Scalp: normal to inspection Face and Sinus: normal facial exam Nose: external nose normal General Ear: hearing grossly impaired External Ear: external ears normal Mouth: oral and palatal mucosa normal Eyes PERRL General Eye: normal appearance of both eyes Neck full ROM General: normal visual inspection Resp normal respiratory effort Effort and Inspection: able to speak in complete sentences Auscultation: clear to auscultation bilaterally Cardio regular rate and regular rhythm Palpation: normal PMI Rate: regular rate Rhythm: regular rhythm GI Auscultation: normoactive bowel sounds Palpation: soft and no hepatosplenomegaly Back/Spine Cervical Spine: cervical ROM normal Thoracic Spine / Upper Back: normal to inspection Lumbar Spine / Lower Back: normal to inspection Extremity normal to inspection General Extremity: normal exam except as noted Skin no rashes or lesions noted Wounds: wounds noted Wound Narrative: Stage IV sacral wound with tunneling Hair: normal Nails: normal Neuro oriented x3 Psych Appearance: grossly normal Speech: normal speech Thought Content: normal thought content Judgement: judgement good Debridement Note Debridement Note Wound debrided: Sacral decubitus ulcer Wound Grade/Stage: Stage IV Type of Debridement: Excisional debridement Anesthesia Used: 5% Lidocaine Gel Depth: Down to and including healthy tissue, in the subcutaneous layer and to muscle Percentage of wound debrided: 100 Instrument Used: 5mm curette Tissue Removed: Fibrin Severity: Fat Layer Exposed Amount of bleeding with debridement: Mild Bleeding Controlled with: Compression and gauze Patient tolerated procedure: Patient tolerated procedure well Post-Debridement Measurements and Additional Note: Post-Debridement Measurements/Treatment - Nurse 1 - General Ulcer Assessment Start: 09/25/22 08:02 Freq: Status: Active Protocol: BENIGNO Activity Type Activity Date Activity User E-sign Co-sign Detail Recorded Client Recorded Date Recorded By Document 09/25/22 08:02 [facility] [id number] 09/25/22 08:08 [facility] 09/25/22 08:02 - Today's Visit Information Type of service Follow-up Visit (Physician/ARMATURE WINDER HELPER REPAIR ) Arrival Mode Wheelchair Transfer Assistance None Patient Identification Verified (Name & Yes ) Patient Requires Transmission-Based No Precautions Height and Weight Body Mass Index (BMI) 22.8 BMI Classification Normal Vital Signs Temperature (97.8 F-99.1 F) 97.8 F Temperature Source Temporal Pulse Rate (60-100) 87 Pulse Location Monitor Respiratory Rate (12-18) 18 Respiratory rate source Observation Blood Pressure (90/60-120/80) 113/39 L Blood Pressure Mean (mm Hg) 63 Source Monitor Position Semi-Fowlers Blood Pressure Location Right Arm History Since Last Visit- (Skip if this is Patient's initial visit) Have you changed medications since your No last visit? Any new allergies or adverse reactions No Had a fall/change in ADL's that may No increase risk of falls Signs or symptoms of abuse and/or No neglect since last visit Have you been in the hospital since your No last visit? Has dressing in place as prescribed Yes Has compression in place as prescribed No Has offloadiing in place as prescribed Yes Experienced any changes in pain level or No management Pain Scale: 0-10 Numeric Is Patient Pain Free? Yes WC - Nurse 1 - General Ulcer Measurement Start: 09/25/22 08:02 Freq: Status: Active Protocol: Activity Type Activity Date Activity User E-sign Co-sign Detail Recorded Client Recorded Date Recorded By Document 09/25/22 08:02 [facility] [id number] 09/25/22 08:08 [facility] 09/25/22 08:02 Wound Center Nurse 1 #1- sacral -Combined with other wound No -Current Size (cm) - Length 0.6 -Current Size (cm) - Width 0.2 -Current Size (cm) - Depth 3 -Total Square Cm 0.12 -Tunneling Yes -Tunneling Position (O'clock) 12 -Tunneling Distance (cm) 4 -Undermining/Tunneling No -Circular Undermining No -Exudate Amt Large -Exudate Type Serosanguineous -Wound Margin Distinct, Outline Attached -Granulation Amt Medium (34-66%) -Granulation Quality [place] -Slough/Fibrin Yes -Necrosis Amt Medium (34-66%) -Necrotic Tissue Type Adherent Slough -Structure Exposed N/A -Texture (Neda-wound Skin Appearance) Assessed, Scarring -Moisture (Neda-wound Skin Appearance) Assessed -Color (Neda-wound Skin Appearance) Assessed -Temperature (Neda-wound Skin No Abnormality Appearance) (Pt Warm) -Tenderness on Palpation (Neda-wound No Skin Appearance) -Ulcer Cleansing Wound Cleanser -Foul Odor after Cleansing No WC - Nurse 2 - General Ulcer CM Notes Start: 09/25/22 08:02 Freq: Status: Active Protocol: Activity Type Activity Date Activity User E-sign Co-sign Detail Recorded Client Recorded Date Recorded By Document 09/25/22 08:19 MW [id number] 09/25/22 08:20 MW 09/25/22 08:19 Wound Center Nurse 2 -Time 08:19 -Correct Patient Yes -Correct Side, Site, Position Yes -Correct Procedure Yes -Procedure Performed Yes -Type of Procedure Debridement -Clinical Debridement Subcutaneous -Tissue Removed Subcutaneous -Post Debridement (cm) - Length 0.5 -Post Debridement (cm) - Width 0.3 -Post Debridement (cm) - Depth 4.0 -Total Square (Post) (cm) 0.15 -Area of Debridement (cm) - Length 0.5 -Area of Debridement (cm) - Width 0.3 -Total Square (Area) (cm) 0.15 -Tunneling No -Undermining/Tunneling No -Circular Undermining No -Wound/Ulcer Outcome Not Healed -Ulcer Cleansing Rinsed/ Irrigated with Saline -Foul Odor after Cleansing No -Bioengineered Tissue No -Bleeding Controlled with Pressure -Treatment Response Procedure Tolerated Well -Offloading No -Debridement - Subq, 1st 20sq cm Yes Pain Scale: 0-10 Numeric Is Patient Pain Free? Yes Assessment/Plan Assessment/Plan (1) Sacral decubitus ulcer, stage IV: CODE(S): L89.154 - Pressure ulcer of sacral region, stage 4 PLAN: Wash wound with antibacterial soap such as Hibiclens. Pack with white foam and attach wound VAC at 150 mmHg May change as needed for for fullness of tank or from losing a seal. Continue increase protein intake Metronidazole 250 3 times daily for 10 days Keep appointment with infectious disease for today about antibiotic therapy Follow-up 1 week (2) Immobility syndrome (paraplegic): CODE(S): M62.3 - Immobility syndrome (paraplegic) (3) Osteomyelitis: CODE(S): M86.9 - Osteomyelitis, unspecified
[2022-10-02 08:21] VITALS: BP 109/33; PULSE 66; RESP 18; TEMP 36.1; BMI 22.8
--- NOTE | 2022-10-02 08:55 | PCM.WC.PN ---
History of Present Illness Date of Service: 10/02/22 Chief Complaint: WOUND CENTER CONSULTATION REFERRING PROVIDER: KYRA Vivar. DOCTOR OF RADIOLOGY: Dr. Gregory. Sacral pressure sore, Stage IV. History of Wound: 46-year-old woman who presented to the Wound Center with a sacral pressure sore, Stage IV, and associated osteomyelitis. 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 During this time she was also diagnosed with MS. She developed a sacral pressure sore that was excised and debrided in the operating room in [place] at [facility] in October,. Cultures (soft tissue and bone) showed Peptostreptococcus, Bacteroides, and E. coli. She was treated with IV Ertapenem for the osteomyelitis. 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 At her Wound Center visit last week, 06/26/22, she had a wound culture. It showed Staphylococcus aureus and Corynebacterium striatum. Will start her on Augmentin. She had labs done at last visit as well. Hgb was 12.6. Potassium was 3.5. BUN/Creat was 11/0.50. Prealbumin was 15.3 now 18 A MRI scan has been ordered and is back and showing no osteomyelitis. I was asked to evaluate this patient for surgical options for treatment including HBO. Progress of Wound: Today the wound depth is 4.0 and improvement from last week of 5.8 cm. Patient is having a hard time getting the vancomycin covered by insurance we are sending her for consult with ID today Patient is finished with her metronidazole 3 times a day for 14 days. She has not started the vancomycin she did buy a weeks worth she is can discuss it with infectious disease first . Subjective Subjective Patient is anxious to get to see I&D today after our meeting here. Objective Data Objective Data Basically it looks the same depth is about the same debrided for bright red blood patient is continuing the wound VAC for now. The last 2 weeks has shown decreasing in depth but very slowly Vital Signs: Vital Signs Temp Pulse Resp BP 97 F L 66 18 109/33 L 10/02/22 08:21 10/02/22 08:21 10/02/22 08:21 10/02/22 08:21 Weight: 145 lb 9.6 oz Body Mass Index (BMI) 22.8 Lab / Micro Data Attestation: I reviewed the patient's lab results. Physical Exam Const oriented x3 General Appearance: cooperative Exam Limitations: no limitations HEENT normocephalic Head and Scalp: normal to inspection Face and Sinus: normal facial exam Nose: external nose normal General Ear: hearing grossly impaired External Ear: external ears normal Mouth: oral and palatal mucosa normal Eyes PERRL General Eye: normal appearance of both eyes Neck full ROM General: normal visual inspection Resp normal respiratory effort Effort and Inspection: able to speak in complete sentences Auscultation: clear to auscultation bilaterally Cardio regular rate and regular rhythm Palpation: normal PMI Rate: regular rate Rhythm: regular rhythm GI Auscultation: normoactive bowel sounds Palpation: soft and no hepatosplenomegaly Back/Spine Cervical Spine: cervical ROM normal Thoracic Spine / Upper Back: normal to inspection Lumbar Spine / Lower Back: normal to inspection Extremity normal to inspection General Extremity: normal exam except as noted Skin no rashes or lesions noted Wounds: wounds noted Wound Narrative: Stage IV sacral wound with tunneling Hair: normal Nails: normal Neuro oriented x3 Psych Appearance: grossly normal Speech: normal speech Thought Content: normal thought content Judgement: judgement good Debridement Note Debridement Note Wound debrided: Sacral decubitus ulcer Wound Grade/Stage: Stage IV Type of Debridement: Excisional debridement Anesthesia Used: 5% Lidocaine Gel Depth: Down to and including healthy tissue and in the subcutaneous layer Percentage of wound debrided: 100 Instrument Used: 5mm curette Tissue Removed: Fibrin Severity: Fat Layer Exposed Amount of bleeding with debridement: Mild Bleeding Controlled with: Compression and gauze Patient tolerated procedure: Patient tolerated procedure well Post-Debridement Measurements and Additional Note: Post-Debridement Measurements/Treatment WC - Nurse 1 - General Ulcer Assessment Start: 09/25/22 08:02 Freq: Status: Active Protocol: BENIGNO Activity Type Activity Date Activity User E-sign Co-sign Detail Recorded Client Recorded Date Recorded By Document 09/25/22 08:02 [facility] [id number] 09/25/22 08:08 BM Document 10/02/22 08:21 RB Desktop 10/02/22 08:22 RB 09/25/22 10/02/22 08:02 08:21 - Today's Visit Information Type of service Follow-up Visit Follow-up Visit (Physician/LIVING ADVISOR (Physician/LIVING ADVISOR ) ) Arrival Mode Wheelchair Wheelchair Transfer Assistance None Manual,Transfer Board Patient Identification Verified (Name & Yes Yes ) Patient Requires Transmission-Based No No Precautions Height and Weight Body Mass Index (BMI) 22.8 22.8 BMI Classification Normal Normal Vital Signs Temperature (97.8 F-99.1 F) 97.8 F 97 F L Temperature Source Temporal Temporal Pulse Rate (60-100) 87 66 Pulse Location Monitor Monitor Respiratory Rate (12-18) 18 18 Respiratory rate source Observation Observation Blood Pressure (90/60-120/80) 113/39 L 109/33 L Blood Pressure Mean (mm Hg) 63 58 Source Monitor Monitor Position Semi-Fowlers Semi-Fowlers Blood Pressure Location Right Arm Left Arm History Since Last Visit- (Skip if this is Patient's initial visit) Have you changed medications since your No No last visit? Any new allergies or adverse reactions No No Had a fall/change in ADL's that may No No increase risk of falls Signs or symptoms of abuse and/or No No neglect since last visit Have you been in the hospital since your No No last visit? Has dressing in place as prescribed Yes Yes Has compression in place as prescribed No No Has offloadiing in place as prescribed Yes Yes Experienced any changes in pain level or No No management Pain Scale: 0-10 Numeric Is Patient Pain Free? Yes Yes - Nurse 1 - General Ulcer Measurement Start: 09/25/22 08:02 Freq: Status: Active Protocol: Activity Type Activity Date Activity User E-sign Co-sign Detail Recorded Client Recorded Date Recorded By Document 09/25/22 08:02 [facility] [id number] 09/25/22 08:08 [facility] Document 10/02/22 08:21 RB Desktop 10/02/22 08:22 RB 09/25/22 10/02/22 08:02 08:21 Wound Center Nurse 1 #1- sacral -Combined with other wound No No -Current Size (cm) - Length 0.6 0.4 -Current Size (cm) - Width 0.2 0.2 -Current Size (cm) - Depth 3 3 -Total Square Cm 0.12 0.08 -Photo Taken Yes -Tunneling Yes No -Tunneling Position (O'clock) 12 -Tunneling Distance (cm) 4 -Undermining/Tunneling No No -Circular Undermining No No -Exudate Amt Large Medium -Exudate Type Serosanguineous Serosanguineous -Wound Margin Distinct, Distinct, Outline Outline Attached Attached -Granulation Amt Medium (34-66%) Medium (34-66%) -Granulation Quality [place] -Slough/Fibrin Yes Yes -Necrosis Amt Medium (34-66%) Medium (34-66%) -Necrotic Tissue Type Adherent Slough Adherent Slough -Structure Exposed N/A N/A -Texture (Neda-wound Skin Appearance) Assessed, Assessed Scarring -Moisture (Neda-wound Skin Appearance) Assessed Assessed -Color (Neda-wound Skin Appearance) Assessed Assessed -Temperature (Neda-wound Skin No Abnormality No Abnormality Appearance) (Pt Warm) (Pt Warm) -Tenderness on Palpation (Neda-wound No No Skin Appearance) -Ulcer Cleansing Wound Cleanser Wound Cleanser -Foul Odor after Cleansing No No WC - Nurse 2 - General Ulcer CM Notes Start: 09/25/22 08:02 Freq: Status: Active Protocol: Activity Type Activity Date Activity User E-sign Co-sign Detail Recorded Client Recorded Date Recorded By Document 09/25/22 08:19 MW [id number] 09/25/22 08:20 MW Document 10/02/22 08:27 MW [id number] 10/02/22 08:30 MW 09/25/22 10/02/22 08:19 08:27 Wound Center Nurse 2 #1- sacral -Time 08:19 08:27 -Correct Patient Yes Yes -Correct Side, Site, Position Yes Yes -Correct Procedure Yes Yes -Procedure Performed Yes Yes -Type of Procedure Debridement Debridement -Clinical Debridement Subcutaneous Subcutaneous -Tissue Removed Subcutaneous Subcutaneous -Post Debridement (cm) - Length 0.5 0.5 -Post Debridement (cm) - Width 0.3 0.3 -Post Debridement (cm) - Depth 4.0 4.5 -Total Square (Post) (cm) 0.15 0.15 -Area of Debridement (cm) - Length 0.5 0.5 -Area of Debridement (cm) - Width 0.3 0.3 -Total Square (Area) (cm) 0.15 0.15 -Tunneling No No -Undermining/Tunneling No No -Circular Undermining No No -Wound/Ulcer Outcome Not Healed Not Healed -Ulcer Cleansing Rinsed/ Rinsed/ Irrigated with Irrigated with Saline Saline -Foul Odor after Cleansing No No -Bioengineered Tissue No No -Bleeding Controlled with Pressure Pressure -Treatment Response Procedure Procedure Tolerated Well Tolerated Well -Offloading No No -Debridement - Subq, 1st 20sq cm Yes Yes Pain Scale: 0-10 Numeric Is Patient Pain Free? Yes Yes WC - Nurse 3 - General Ulcer D/C NN Start: 09/25/22 08:02 Freq: Status: Active Protocol: Activity Type Activity Date Activity User E-sign Co-sign Detail Recorded Client Recorded Date Recorded By Document 09/25/22 08:44 [facility] [id number] 09/25/22 08:45 [facility] 09/25/22 08:44 Wound Care Center Nurse 3 #1- sacral -Ulcer Cleansing Rinsed/ Irrigated with Saline -Foul Odor after Cleansing No -Negative Pressure Wound Therapy Continue -Setting (mmHg) 150 -Negative Pressure is Continuous -NPWT Application Charge NPWT & Debridement (nc ) Treatment Response Procedure Tolerated Well Pain Scale: 0-10 Numeric Is Patient Pain Free? Yes WC - Visit Discharge Discharge Condition Stable Ambulatory Status Wheelchair Transportation Private Auto Accompanied by david Assessment/Plan Assessment/Plan (1) Sacral decubitus ulcer, stage IV: CODE(S): L89.154 - Pressure ulcer of sacral region, stage 4 PLAN: Wash wound with antibacterial soap such as Hibiclens. Pack with white foam and attach wound VAC at 150 mmHg May change as needed for for fullness of tank or from losing a seal. Continue increase protein intake Finished metronidazole 250 3 times daily for 10 days Keep appointment with infectious disease for today about antibiotic therapy Follow-up 2 week (2) Immobility syndrome (paraplegic): CODE(S): M62.3 - Immobility syndrome (paraplegic) (3) Osteomyelitis: CODE(S): M86.9 - Osteomyelitis, unspecified
[2022-10-09 08:06] VITALS: BP 113/34; PULSE 77; RESP 16; TEMP 35.5; BMI 22.8
--- NOTE | 2022-10-09 08:45 | PN.PCM_ITS ---
History of Present Illness Date of Service: 10/09/22 Chief Complaint: WOUND CENTER CONSULTATION REFERRING PROVIDER: KYRA Vivar. RUGBY LEAGUE FOOTBALLER: Dr. Gregory. Sacral pressure sore, Stage IV. History of Wound: 46-year-old woman who presented to the Wound Center with a sacral pressure sore, Stage IV, and associated osteomyelitis. 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 During this time she was also diagnosed with MS. She developed a sacral pressure sore that was excised and debrided in the operating room in [place] at [facility] in October,. Cultures (soft tissue and bone) showed Peptostreptococcus, Bacteroides, and E. coli. She was treated with IV Ertapenem for the osteomyelitis. 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 At her Wound Center visit last week, 06/26/22, she had a wound culture. It showed Staphylococcus aureus and Corynebacterium striatum. Will start her on Augmentin. She had labs done at last visit as well. Hgb was 12.6. Potassium was 3.5. BUN/Creat was 11/0.50. Prealbumin was 15.3 now 18 A MRI scan has been ordered and is back and showing no osteomyelitis. I was asked to evaluate this patient for surgical options for treatment including HBO. Progress of Wound: Today the wound depth is 4.5 and improvement from last week of 5.8 cm. Consult with I&D was to start her on Augmentin Patient is finished with her metronidazole 3 times a day for 14 days. Subjective Subjective Was not impressed with the consult Objective Data Objective Data No real movemnet this week but not worsening. Vital Signs: Vital Signs Temp Pulse Resp BP O2 Del Method 96 F L 77 16 113/34 L Room Air 10/09/22 08:06 10/09/22 08:06 10/09/22 08:06 10/09/22 08:06 10/09/22 08:06 Oxygen Delivery Method Room Air Weight: 145 lb 9.6 oz Body Mass Index (BMI) 22.8 Lab / Micro Data Attestation: I reviewed the patient's lab results. Physical Exam Const oriented x3 General Appearance: cooperative Exam Limitations: no limitations HEENT normocephalic Head and Scalp: normal to inspection Face and Sinus: normal facial exam Nose: external nose normal General Ear: hearing grossly impaired External Ear: external ears normal Mouth: oral and palatal mucosa normal Eyes PERRL General Eye: normal appearance of both eyes Neck full ROM General: normal visual inspection Resp normal respiratory effort Effort and Inspection: able to speak in complete sentences Auscultation: clear to auscultation bilaterally Cardio regular rate and regular rhythm Palpation: normal PMI Rate: regular rate Rhythm: regular rhythm GI Auscultation: normoactive bowel sounds Palpation: soft and no hepatosplenomegaly Back/Spine Cervical Spine: cervical ROM normal Thoracic Spine / Upper Back: normal to inspection Lumbar Spine / Lower Back: normal to inspection Extremity normal to inspection General Extremity: normal exam except as noted Skin no rashes or lesions noted Wounds: wounds noted Wound Narrative: Stage IV sacral wound with tunneling Hair: normal Nails: normal Neuro oriented x3 Psych Appearance: grossly normal Speech: normal speech Thought Content: normal thought content Judgement: judgement good Debridement Note Debridement Note Wound debrided: sacral decubitus ulcer Wound Grade/Stage: stage 4 Type of Debridement: Excisional debridement Anesthesia Used: 5% Lidocaine Gel Depth: Down to and including healthy tissue, in the subcutaneous layer and to muscle Percentage of wound debrided: 100 Instrument Used: 5mm curette Severity: Fat Layer Exposed Amount of bleeding with debridement: Mild Bleeding Controlled with: Pressure Patient tolerated procedure: Patient tolerated procedure well Post-Debridement Measurements and Additional Note: Post-Debridement Measurements/Treatment - Nurse 1 - General Ulcer Assessment Start: 09/25/22 08:02 Freq: Status: Active Protocol: BENIGNO Activity Type Activity Date Activity User E-sign Co-sign Detail Recorded Client Recorded Date Recorded By Document 09/25/22 08:02 [facility] [id number] 09/25/22 08:08 [facility] Document 10/02/22 08:21 RB Desktop 10/02/22 08:22 RB Document 10/09/22 08:06 [facility] [id number] 10/09/22 08:12 BM 09/25/22 10/02/22 10/09/22 08:02 08:21 08:06 - Today's Visit Information Type of service Follow-up Visit Follow-up Visit Follow-up Visit (Physician/HISTORY CARD CLERK (Physician/HISTORY CARD CLERK (Physician/HISTORY CARD CLERK ) ) ) Arrival Mode Wheelchair Wheelchair Wheelchair Transfer Assistance None Manual,Transfer Other Board Transfer Assist (Other) slide board; husb assists Accompanied by husb Patient Identification Verified (Name & Yes Yes Yes ) Patient Requires Transmission-Based No No No Precautions Height and Weight Body Mass Index (BMI) 22.8 22.8 22.8 BMI Classification Normal Normal Normal Vital Signs Temperature (97.8 F-99.1 F) 97.8 F 97 F L 96 F L Temperature Source Temporal Temporal Temporal Pulse Rate (60-100) 87 66 77 Pulse Location Monitor Monitor Monitor Respiratory Rate (12-18) 18 18 16 Respiratory rate source Observation Observation Observation Oxygen Delivery Method Room Air Blood Pressure (90/60-120/80) 113/39 L 109/33 L 113/34 L Blood Pressure Mean (mm Hg) 63 58 60 Source Monitor Monitor Monitor Position Semi-Fowlers Semi-Fowlers Supine Blood Pressure Location Right Arm Left Arm Right Arm History Since Last Visit- (Skip if this is Patient's initial visit) Have you changed medications since your No No No last visit? Any new allergies or adverse reactions No No No Had a fall/change in ADL's that may No No No increase risk of falls Signs or symptoms of abuse and/or No No No neglect since last visit Have you been in the hospital since your No No No last visit? Has dressing in place as prescribed Yes Yes Yes Has compression in place as prescribed No No N/A Has offloadiing in place as prescribed Yes Yes N/A Experienced any changes in pain level or No No No management Pain Scale: 0-10 Numeric Is Patient Pain Free? Yes Yes Yes WC - Nurse 1 - General Ulcer Measurement Start: 09/25/22 08:02 Freq: Status: Active Protocol: Activity Type Activity Date Activity User E-sign Co-sign Detail Recorded Client Recorded Date Recorded By Document 09/25/22 08:02 [facility] [id number] 09/25/22 08:08 [facility] Document 10/02/22 08:21 RB Desktop 10/02/22 08:22 RB Document 10/09/22 08:06 [facility] [id number] 10/09/22 08:12 BMF 09/25/22 10/02/22 10/09/22 08:02 08:21 08:06 Wound Center Nurse 1 #1- sacral -Combined with other wound No No No -Current Size (cm) - Length 0.6 0.4 0.5 -Current Size (cm) - Width 0.2 0.2 0.2 -Current Size (cm) - Depth 3 3 3.6 -Total Square Cm 0.12 0.08 0.10 -Photo Taken Yes Yes -Tunneling Yes No Yes -Tunneling Position (O'clock) 12 12 -Tunneling Distance (cm) 4 4 -Undermining/Tunneling No No No -Circular Undermining No No No -Exudate Amt Large Medium Large -Exudate Type Serosanguineous Serosanguineous Serosanguineous -Wound Margin Distinct, Distinct, Distinct, Outline Outline Outline Attached Attached Attached -Granulation Amt Medium (34-66%) Medium (34-66%) Medium (34-66%) -Granulation Quality [place] -Slough/Fibrin Yes Yes Yes -Necrosis Amt Medium (34-66%) Medium (34-66%) Medium (34-66%) -Necrotic Tissue Type Adherent Slough Adherent Slough Adherent Slough -Structure Exposed N/A N/A N/A -Texture (Neda-wound Skin Appearance) Assessed, Assessed Assessed, Scarring Scarring -Moisture (Neda-wound Skin Appearance) Assessed Assessed Assessed -Color (Neda-wound Skin Appearance) Assessed Assessed Assessed -Temperature (Neda-wound Skin No Abnormality No Abnormality No Abnormality Appearance) (Pt Warm) (Pt Warm) (Pt Warm) -Tenderness on Palpation (Neda-wound No No No Skin Appearance) -Ulcer Cleansing Wound Cleanser Wound Cleanser Wound Cleanser -Foul Odor after Cleansing No No No WC - Nurse 2 - General Ulcer CM Notes Start: 09/25/22 08:02 Freq: Status: Active Protocol: Activity Type Activity Date Activity User E-sign Co-sign Detail Recorded Client Recorded Date Recorded By Document 09/25/22 08:19 MW [id number] 09/25/22 08:20 MW Document 10/02/22 08:27 MW [id number] 10/02/22 08:30 MW Document 10/09/22 08:15 PL [id number] 10/09/22 08:21 PL 09/25/22 10/02/22 10/09/22 08:19 08:27 08:15 Wound Center Nurse 2 #1- sacral -Time 08:19 08:27 08:15 -Correct Patient Yes Yes Yes -Correct Side, Site, Position Yes Yes Yes -Correct Procedure Yes Yes Yes -Procedure Performed Yes Yes Yes -Type of Procedure Debridement Debridement Debridement -Clinical Debridement Subcutaneous Subcutaneous Subcutaneous -Tissue Removed Subcutaneous Subcutaneous Subcutaneous -Post Debridement (cm) - Length 0.5 0.5 0.5 -Post Debridement (cm) - Width 0.3 0.3 0.3 -Post Debridement (cm) - Depth 4.0 4.5 4.5 -Total Square (Post) (cm) 0.15 0.15 0.15 -Area of Debridement (cm) - Length 0.5 0.5 0.5 -Area of Debridement (cm) - Width 0.3 0.3 0.3 -Total Square (Area) (cm) 0.15 0.15 0.15 -Tunneling No No Yes -Tunneling Position (O'clock) 12 -Tunneling Distance (cm) 4.5 -Undermining/Tunneling No No -Circular Undermining No No -Wound/Ulcer Outcome Not Healed Not Healed Not Healed -Ulcer Cleansing Rinsed/ Rinsed/ Rinsed/ Irrigated with Irrigated with Irrigated with Saline Saline Saline -Foul Odor after Cleansing No No No -Bioengineered Tissue No No No -Bleeding Controlled with Pressure Pressure Pressure -Treatment Response Procedure Procedure Procedure Tolerated Well Tolerated Well Tolerated Well -Offloading No No -Debridement - Subq, 1st 20sq cm Yes Yes Yes Pain Scale: 0-10 Numeric Is Patient Pain Free? Yes Yes Yes - Nurse 3 - General Ulcer D/C NN Start: 09/25/22 08:02 Freq: Status: Active Protocol: Activity Type Activity Date Activity User E-sign Co-sign Detail Recorded Client Recorded Date Recorded By Document 09/25/22 08:44 [facility] [id number] 09/25/22 08:45 [facility] Document 10/02/22 08:57 RB Desktop 10/02/22 08:58 RB Document 10/09/22 08:40 [facility] [id number] 10/09/22 08:41 F 0510/02/22 10/09/22 08:44 08:57 08:40 Wound Care Center Nurse 3 #1- sacral -Ulcer Cleansing Rinsed/ Rinsed/ Irrigated with Irrigated with Saline Saline -Foul Odor after Cleansing No No -Negative Pressure Wound Therapy Continue Continue Continue -Setting (mmHg) 150 150 150 -Negative Pressure is Continuous Continuous Continuous -NPWT Application Charge NPWT & NPWT & NPWT & Debridement (nc Debridement (nc Debridement (nc ) ) ) Neda-Wound Care Barrier Treatment Response Procedure Procedure Procedure Tolerated Well Tolerated Well Tolerated Well Pain Scale: 0-10 Numeric Is Patient Pain Free? Yes Yes Yes WC - Visit Discharge Discharge Condition Stable Stable Stable Ambulatory Status Wheelchair Wheelchair Wheelchair Transportation Private Auto Private Auto Private Auto Accompanied by david hernandez Medication Reconcilliation completed & No provided to patient/care provider Clinical Summary of Care Provided Yes Assessment/Plan Assessment/Plan (1) Sacral decubitus ulcer, stage IV: CODE(S): L89.154 - Pressure ulcer of sacral region, stage 4 PLAN: Wash wound with antibacterial soap such as Hibiclens. Pack with white foam and attach wound VAC at 150 mmHg May change as needed for for fullness of tank or from losing a seal. Continue increase protein intake continue the Augmentin that I&D suggests Follow-up 1 week (2) Immobility syndrome (paraplegic): CODE(S): M62.3 - Immobility syndrome (paraplegic) (3) Osteomyelitis: CODE(S): M86.9 - Osteomyelitis, unspecified
[2022-10-16 08:09] VITALS: BP 120/62; PULSE 85; RESP 16; TEMP 36.3; BMI 22.8
--- NOTE | 2022-10-16 11:16 | WC ---
pt mother applied vac to patient with clean technique. vac increased to 175mmHg as ordered
--- NOTE | 2022-10-16 11:37 | PN.PCM_ITS ---
History of Present Illness Date of Service: 10/16/22 Chief Complaint: WOUND CENTER CONSULTATION REFERRING PROVIDER: KYRA Vivar. ELECTRODE CLEANING MACHINE OPERATOR: Dr. Gregory. Sacral pressure sore, Stage IV. History of Wound: 46-year-old woman who presented to the Wound Center with a sacral pressure sore, Stage IV, and associated osteomyelitis. 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 During this time she was also diagnosed with MS. She developed a sacral pressure sore that was excised and debrided in the operating room in [place] at [facility] in October,. Cultures (soft tissue and bone) showed Peptostreptococcus, Bacteroides, and E. coli. She was treated with IV Ertapenem for the osteomyelitis. 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 At her Wound Center visit last week, 06/26/22, she had a wound culture. It showed Staphylococcus aureus and Corynebacterium striatum. Will start her on Augmentin. She had labs done at last visit as well. Hgb was 12.6. Potassium was 3.5. BUN/Creat was 11/0.50. Prealbumin was 15.3 now 18 A MRI scan has been ordered and is back and showing no osteomyelitis. I was asked to evaluate this patient for surgical options for treatment including HBO. Progress of Wound: Today the wound depth is 4.5 and improvement from last week of 5.8 cm. Consult with I&D was to start her on Augmentin. Patient has developed some diarrhea not sure if it is probably from the Augmentin she is taking. We discussed again about the wound VAC and surgery. I would like to see her have surgery she would like to try continue the wound VAC we will increase it to 175 mmHg and see if we can get this thing to start moving again. Patient is take her loperamide for her diarrhea Subjective Subjective Patient a little teary-eyed because of the cost every time she comes in here and I debrided but I told her I have to debride that is my job. Objective Data Objective Data Area surrounding the wound is normal flesh color no sign of infection no odor she is having some diarrhea as we were even examining her today she is embarrassed with this. I stressed that she may need surgery in the long run but she wants to hang in there and continue the wound VAC. Vital Signs: Vital Signs Temp Pulse Resp BP O2 Del Method 97.4 F L 85 16 120/62 Room Air 10/16/22 08:09 10/16/22 08:09 10/16/22 08:09 10/16/22 08:09 10/16/22 08:09 Oxygen Delivery Method Room Air Weight: 145 lb 9.6 oz Body Mass Index (BMI) 22.8 Physical Exam Const oriented x3 General Appearance: cooperative Exam Limitations: no limitations HEENT normocephalic Head and Scalp: normal to inspection Face and Sinus: normal facial exam Nose: external nose normal General Ear: hearing grossly impaired External Ear: external ears normal Mouth: oral and palatal mucosa normal Eyes PERRL General Eye: normal appearance of both eyes Neck full ROM General: normal visual inspection Resp normal respiratory effort Effort and Inspection: able to speak in complete sentences Auscultation: clear to auscultation bilaterally Cardio regular rate and regular rhythm Palpation: normal PMI Rate: regular rate Rhythm: regular rhythm GI Auscultation: normoactive bowel sounds Palpation: soft and no hepatosplenomegaly Back/Spine Cervical Spine: cervical ROM normal Thoracic Spine / Upper Back: normal to inspection Lumbar Spine / Lower Back: normal to inspection Extremity normal to inspection General Extremity: normal exam except as noted Skin no rashes or lesions noted Wounds: wounds noted Wound Narrative: Stage IV sacral wound with tunneling Hair: normal Nails: normal Neuro oriented x3 Psych Appearance: grossly normal Speech: normal speech Thought Content: normal thought content Judgement: judgement good Debridement Note Debridement Note Wound debrided: Sacral decubitus ulcer Wound Grade/Stage: Stage IV Type of Debridement: Excisional debridement Anesthesia Used: 5% Lidocaine Gel Depth: Down to and including healthy tissue and in the subcutaneous layer Percentage of wound debrided: 100 Instrument Used: 5mm curette Tissue Removed: Fibrin Severity: Limited To Skin Breakdown Amount of bleeding with debridement: Moderate Bleeding Controlled with: Compression and gauze Patient tolerated procedure: Patient tolerated procedure well Post-Debridement Measurements and Additional Note: Post-Debridement Measurements/Treatment DEBBI - Nurse 1 - General Ulcer Assessment Start: 09/25/22 08:02 Freq: Status: Active Protocol: BENIGNO Activity Type Activity Date Activity User E-sign Co-sign Detail Recorded Client Recorded Date Recorded By Document 09/25/22 08:02 [facility] [id number] 09/25/22 08:08 [facility] Document 10/02/22 08:21 RB Desktop 10/02/22 08:22 RB Document 10/09/22 08:06 [facility] [id number] 10/09/22 08:12 [facility] Document 10/16/22 08:09 [facility] [id number] 10/16/22 08:19 [facility] 09/25/22 10/02/22 10/09/22 08:02 08:21 08:06 - Today's Visit Information Type of service Follow-up Visit Follow-up Visit Follow-up Visit (Physician/PRINT JOURNALIST (Physician/PRINT JOURNALIST (Physician/PRINT JOURNALIST ) ) ) Arrival Mode Wheelchair Wheelchair Wheelchair Transfer Assistance None Manual,Transfer Other Board Transfer Assist (Other) slide board; husb assists Accompanied by husb Patient Identification Verified (Name & Yes Yes Yes ) Patient Requires Transmission-Based No No No Precautions Height and Weight Body Mass Index (BMI) 22.8 22.8 22.8 BMI Classification Normal Normal Normal Vital Signs Temperature (97.8 F-99.1 F) 97.8 F 97 F L 96 F L Temperature Source Temporal Temporal Temporal Pulse Rate (60-100) 87 66 77 Pulse Location Monitor Monitor Monitor Respiratory Rate (12-18) 18 18 16 Respiratory rate source Observation Observation Observation Oxygen Delivery Method Room Air Blood Pressure (90/60-120/80) 113/39 L 109/33 L 113/34 L Blood Pressure Mean (mm Hg) 63 58 60 Source Monitor Monitor Monitor Position Semi-Fowlers Semi-Fowlers Supine Blood Pressure Location Right Arm Left Arm Right Arm History Since Last Visit- (Skip if this is Patient's initial visit) Have you changed medications since your No No No last visit? Any new allergies or adverse reactions No No No Had a fall/change in ADL's that may No No No increase risk of falls Signs or symptoms of abuse and/or No No No neglect since last visit Have you been in the hospital since your No No No last visit? Has dressing in place as prescribed Yes Yes Yes Has compression in place as prescribed No No N/A Has offloadiing in place as prescribed Yes Yes N/A Experienced any changes in pain level or No No No management Left Footwear Right Footwear Pain Scale: 0-10 Numeric Is Patient Pain Free? Yes Yes Yes 10/16/22 08:09 - Today's Visit Information Type of service Follow-up Visit (Physician/PRINT JOURNALIST ) Arrival Mode Wheelchair Transfer Assistance None Transfer Assist (Other) Accompanied by husb Patient Identification Verified (Name & Yes ) Patient Requires Transmission-Based No Precautions Height and Weight Body Mass Index (BMI) 22.8 BMI Classification Normal Vital Signs Temperature (97.8 F-99.1 F) 97.4 F L Temperature Source Temporal Pulse Rate (60-100) 85 Pulse Location Monitor Respiratory Rate (12-18) 16 Respiratory rate source Observation Oxygen Delivery Method Room Air Blood Pressure (90/60-120/80) 120/62 Blood Pressure Mean (mm Hg) 81 Source Monitor Position Sitting Blood Pressure Location Right Arm History Since Last Visit- (Skip if this is Patient's initial visit) Have you changed medications since your No last visit? Any new allergies or adverse reactions No Had a fall/change in ADL's that may No increase risk of falls Signs or symptoms of abuse and/or No neglect since last visit Have you been in the hospital since your No last visit? Has dressing in place as prescribed Yes Has compression in place as prescribed N/A Has offloadiing in place as prescribed N/A Experienced any changes in pain level or No management Left Footwear Regular Shoe Right Footwear Regular Shoe Pain Scale: 0-10 Numeric Is Patient Pain Free? Yes - Nurse 1 - General Ulcer Measurement Start: 09/25/22 08:02 Freq: Status: Active Protocol: Activity Type Activity Date Activity User E-sign Co-sign Detail Recorded Client Recorded Date Recorded By Document 09/25/22 08:02 [facility] [id number] 09/25/22 08:08 [facility] Document 10/02/22 08:21 RB Desktop 10/02/22 08:22 RB Document 10/09/22 08:06 [facility] [id number] 10/09/22 08:12 [facility] Document 10/16/22 08:09 [facility] [id number] 10/16/22 08:19 [facility] 09/25/22 10/02/2210/09/23 08:02 08:21 08:06 Wound Center Nurse 1 #1- sacral -Combined with other wound No No No -Current Size (cm) - Length 0.6 0.4 0.5 -Current Size (cm) - Width 0.2 0.2 0.2 -Current Size (cm) - Depth 3 3 3.6 -Total Square Cm 0.12 0.08 0.10 -Date of Last Picture (Recall this field) -Photo Taken Yes Yes -Epithelialization -Tunneling Yes No Yes -Tunneling Position (O'clock) 12 12 -Tunneling Distance (cm) 4 4 -Undermining/Tunneling No No No -Circular Undermining No No No -Exudate Amt Large Medium Large -Exudate Type Serosanguineous Serosanguineous Serosanguineous -Wound Margin Distinct, Distinct, Distinct, Outline Outline Outline Attached Attached Attached -Granulation Amt Medium (34-66%) Medium (34-66%) Medium (34-66%) -Granulation Quality [place] -Slough/Fibrin Yes Yes Yes -Necrosis Amt Medium (34-66%) Medium (34-66%) Medium (34-66%) -Necrotic Tissue Type Adherent Slough Adherent Slough Adherent Slough -Structure Exposed N/A N/A N/A -Texture (Neda-wound Skin Appearance) Assessed, Assessed Assessed, Scarring Scarring -Moisture (Neda-wound Skin Appearance) Assessed Assessed Assessed -Color (Neda-wound Skin Appearance) Assessed Assessed Assessed -Temperature (Neda-wound Skin No Abnormality No Abnormality No Abnormality Appearance) (Pt Warm) (Pt Warm) (Pt Warm) -Tenderness on Palpation (Neda-wound No No No Skin Appearance) -Ulcer Cleansing Wound Cleanser Wound Cleanser Wound Cleanser -Foul Odor after Cleansing No No No 10/16/22 08:09 Wound Center Nurse 1 #1- sacral -Combined with other wound No -Current Size (cm) - Length 0.5 -Current Size (cm) - Width 0.2 -Current Size (cm) - Depth 3 -Total Square Cm 0.10 -Date of Last Picture (Recall this 10/16/22 field) -Photo Taken Yes -Epithelialization None Present -Tunneling Yes -Tunneling Position (O'clock) 12 -Tunneling Distance (cm) 3.5 -Undermining/Tunneling No -Circular Undermining No -Exudate Amt Medium -Exudate Type Serosanguineous -Wound Margin Distinct, Outline Attached -Granulation Amt Large (67-100%) -Granulation Quality Red -Slough/Fibrin No -Necrosis Amt None Present (0 %) -Necrotic Tissue Type -Structure Exposed -Texture (Neda-wound Skin Appearance) Assessed, Scarring -Moisture (Neda-wound Skin Appearance) Assessed -Color (Neda-wound Skin Appearance) Assessed -Temperature (Neda-wound Skin No Abnormality Appearance) (Pt Warm) -Tenderness on Palpation (Neda-wound No Skin Appearance) -Ulcer Cleansing Soap and Water -Foul Odor after Cleansing No WC - Nurse 2 - General Ulcer CM Notes Start: 09/25/22 08:02 Freq: Status: Active Protocol: Activity Type Activity Date Activity User E-sign Co-sign Detail Recorded Client Recorded Date Recorded By Document 09/25/22 08:19 MW [id number] 09/25/22 08:20 MW Document 10/02/22 08:27 MW [id number] 10/02/22 08:30 MW Document 10/09/22 08:15 PL [id number] 10/09/22 08:21 PL Document 10/16/22 08:33 MW [id number] 10/16/22 08:36 MW 09/25/22 10/02/22 10/09/22 08:19 08:27 08:15 Wound Center Nurse 2 #1- sacral -Time 08:19 08:27 08:15 -Correct Patient Yes Yes Yes -Correct Side, Site, Position Yes Yes Yes -Correct Procedure Yes Yes Yes -Procedure Performed Yes Yes Yes -Type of Procedure Debridement Debridement Debridement -Clinical Debridement Subcutaneous Subcutaneous Subcutaneous -Tissue Removed Subcutaneous Subcutaneous Subcutaneous -Post Debridement (cm) - Length 0.5 0.5 0.5 -Post Debridement (cm) - Width 0.3 0.3 0.3 -Post Debridement (cm) - Depth 4.0 4.5 4.5 -Total Square (Post) (cm) 0.15 0.15 0.15 -Area of Debridement (cm) - Length 0.5 0.5 0.5 -Area of Debridement (cm) - Width 0.3 0.3 0.3 -Total Square (Area) (cm) 0.15 0.15 0.15 -Tunneling No No Yes -Tunneling Position (O'clock) 12 -Tunneling Distance (cm) 4.5 -Undermining/Tunneling No No -Circular Undermining No No -Wound/Ulcer Outcome Not Healed Not Healed Not Healed -Ulcer Cleansing Rinsed/ Rinsed/ Rinsed/ Irrigated with Irrigated with Irrigated with Saline Saline Saline -Foul Odor after Cleansing No No No -Bioengineered Tissue No No No -Bleeding Controlled with Pressure Pressure Pressure -Treatment Response Procedure Procedure Procedure Tolerated Well Tolerated Well Tolerated Well -Offloading No No -Debridement - Subq, 1st 20sq cm Yes Yes Yes Pain Scale: 0-10 Numeric Is Patient Pain Free? Yes Yes Yes 10/16/22 08:33 Wound Center Nurse 2 #1- sacral -Time 08:33 -Correct Patient Yes -Correct Side, Site, Position Yes -Correct Procedure Yes -Procedure Performed Yes -Type of Procedure Debridement -Clinical Debridement Subcutaneous -Tissue Removed Subcutaneous -Post Debridement (cm) - Length 0.5 -Post Debridement (cm) - Width 0.3 -Post Debridement (cm) - Depth 4.5 -Total Square (Post) (cm) 0.15 -Area of Debridement (cm) - Length 0.5 -Area of Debridement (cm) - Width 0.3 -Total Square (Area) (cm) 0.15 -Tunneling No -Tunneling Position (O'clock) -Tunneling Distance (cm) -Undermining/Tunneling No -Circular Undermining No -Wound/Ulcer Outcome Not Healed -Ulcer Cleansing Rinsed/ Irrigated with Saline -Foul Odor after Cleansing Yes, Due to Product Use -Bioengineered Tissue -Bleeding Controlled with Pressure -Treatment Response Procedure Tolerated Well -Offloading No -Debridement - Subq, 1st 20sq cm Yes Pain Scale: 0-10 Numeric Is Patient Pain Free? Yes WC - Nurse 3 - General Ulcer D/C NN Start: 09/25/22 08:02 Freq: Status: Active Protocol: Activity Type Activity Date Activity User E-sign Co-sign Detail Recorded Client Recorded Date Recorded By Document 09/25/22 08:44 [facility] [id number] 09/25/22 08:45 [facility] Document 10/02/22 08:57 RB Desktop 05/10/23 08:58 RB Document 10/09/22 08:40 [facility] [id number] 10/09/22 08:41 [facility] Document 10/16/22 11:19 RB [id number] 10/16/22 11:20 RB 09/25/22 10/02/22 10/09/22 08:44 08:57 08:40 Wound Care Center Nurse 3 #1- sacral -Ulcer Cleansing Rinsed/ Rinsed/ Irrigated with Irrigated with Saline Saline -Foul Odor after Cleansing No No -Negative Pressure Wound Therapy Continue Continue Continue -Setting (mmHg) 150 150 150 -Negative Pressure is Continuous Continuous Continuous -NPWT Application Charge NPWT & NPWT & NPWT & Debridement (nc Debridement (nc Debridement (nc ) ) ) Neda-Wound Care Barrier Treatment Response Procedure Procedure Procedure Tolerated Well Tolerated Well Tolerated Well Pain Scale: 0-10 Numeric Is Patient Pain Free? Yes Yes Yes Teaching: Wound Center Dressing Your Wound -Person Taught -Teaching Method -Response to teaching WC - Visit Discharge Discharge Condition Stable Stable Stable Ambulatory Status Wheelchair Wheelchair Wheelchair Transportation Private Auto Private Auto Private Auto Accompanied by david hernandez Medication Reconcilliation completed & No provided to patient/care provider Clinical Summary of Care Provided Yes Notes: 10/16/22 11:19 Wound Care Center Nurse 3 #1- sacral -Ulcer Cleansing Wound Cleanser -Foul Odor after Cleansing -Negative Pressure Wound Therapy Continue -Setting (mmHg) 175 -Negative Pressure is Continuous -NPWT Application Charge NPWT & Debridement (nc ) Neda-Wound Care Barrier Treatment Response Procedure Tolerated Well Pain Scale: 0-10 Numeric Is Patient Pain Free? Yes Teaching: Wound Center Dressing Your Wound -Person Taught Patient -Teaching Method Discussion, Demonstration -Response to teaching Verbalize understanding WC - Visit Discharge Discharge Condition Stable Ambulatory Status Wheelchair Transportation Private Auto Accompanied by Medication Reconcilliation completed & No provided to patient/care provider Clinical Summary of Care Provided Yes Notes: pt had 4 BM while applying vac dressing Assessment/Plan Assessment/Plan (1) Sacral decubitus ulcer, stage IV: CODE(S): L89.154 - Pressure ulcer of sacral region, stage 4 PLAN: Wash wound with antibacterial soap such as Hibiclens. Pack with white foam and attach wound VAC at 175 mmHg May change as needed for for fullness of tank or from losing a seal. Continue increase protein intake continue the Augmentin that I&D suggests Follow-up 1 week (2) Immobility syndrome (paraplegic): CODE(S): M62.3 - Immobility syndrome (paraplegic)
== END 2022-10-23 23:59 | disposition home or self-care (01) ==
LOC: WC 08:00
PROVIDERS: PCP Family Medicine; Visit Provider Nurse Practitioner
DX: L89.154 Pressure ulcer of sacral region, stage 4 (principal); M86.9 Osteomyelitis, unspecified; R19.7 Diarrhea, unspecified; M62.3 Immobility syndrome (paraplegic)
CPT/HCPCS: 11042

== ENCOUNTER 2022-11-21 15:45 | Outpatient (RCR) | payer BC, SELFPAY ==
[2022-10-24 00:19] VITALS: BP 120/62; PULSE 85; RESP 16; TEMP 36.3; BMI 22.8
[2022-10-30 07:59] VITALS: BP 123/74; PULSE 88; RESP 16; TEMP 35.9; BMI 22.8
--- NOTE | 2022-10-30 09:42 | PCM.WC.PN ---
History of Present Illness Date of Service: 10/30/22 Chief Complaint: WOUND CENTER CONSULTATION REFERRING PROVIDER: KYRA iVvar. FINISHED CARPET INSPECTOR: Dr. Gregory. Sacral pressure sore, Stage IV. History of Wound: 46-year-old woman who presented to the Wound Center with a sacral pressure sore, Stage IV, and associated osteomyelitis. 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 During this time she was also diagnosed with MS. She developed a sacral pressure sore that was excised and debrided in the operating room in [place] at [facility] in October,. Cultures (soft tissue and bone) showed Peptostreptococcus, Bacteroides, and E. coli. She was treated with IV Ertapenem for the osteomyelitis. 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 At her Wound Center visit last week, 06/26/22, she had a wound culture. It showed Staphylococcus aureus and Corynebacterium striatum. Will start her on Augmentin. She had labs done at last visit as well. Hgb was 12.6. Potassium was 3.5. BUN/Creat was 11/0.50. Prealbumin was 15.3 now 18 A MRI scan has been ordered and is back and showing no osteomyelitis. I was asked to evaluate this patient for surgical options for treatment including HBO. Progress of Wound: Has not been here for 2 weeks. The outside is smaller but the inside still has tunneling about 6 cm she has been sick with some kind of diarrhea she was on Cipro for 10 days ended up being a UTI. Feels better now increased her wound VAC to 200 Subjective Subjective Tolerating the wound VAC making sure she gets it down in there ads for 6 cm before attaching. Objective Data Objective Data Wound size slightly smaller on the outside with the same on the inside. No sign of infection or anything Did order labs CBC CMP prealbumin magnesium lipase make sure that everything is okay Vital Signs: Vital Signs Temp Pulse Resp BP O2 Del Method 96.7 F L 88 16 123/74 H Room Air 10/30/22 07:59 10/30/22 07:59 10/30/22 07:59 10/30/22 07:59 10/30/22 07:59 Oxygen Delivery Method Room Air Weight: 145 lb 9.6 oz Body Mass Index (BMI) 22.8 Lab / Micro Data Attestation: I reviewed the patient's lab results. Result Diagrams: 10/30/22 09:00 10/30/22 09:00 Physical Exam Const oriented x3 General Appearance: cooperative Exam Limitations: no limitations HEENT normocephalic Head and Scalp: normal to inspection Face and Sinus: normal facial exam Nose: external nose normal General Ear: hearing grossly impaired External Ear: external ears normal Mouth: oral and palatal mucosa normal Eyes PERRL General Eye: normal appearance of both eyes Neck full ROM General: normal visual inspection Resp normal respiratory effort Effort and Inspection: able to speak in complete sentences Auscultation: clear to auscultation bilaterally Cardio regular rate and regular rhythm Palpation: normal PMI Rate: regular rate Rhythm: regular rhythm GI Auscultation: normoactive bowel sounds Palpation: soft and no hepatosplenomegaly Back/Spine Cervical Spine: cervical ROM normal Thoracic Spine / Upper Back: normal to inspection Lumbar Spine / Lower Back: normal to inspection Extremity normal to inspection General Extremity: normal exam except as noted Skin no rashes or lesions noted Wounds: wounds noted Wound Narrative: Stage IV sacral wound with tunneling Hair: normal Nails: normal Neuro oriented x3 Psych Appearance: grossly normal Speech: normal speech Thought Content: normal thought content Judgement: judgement good Debridement Note Debridement Note Wound debrided: Stage IV decubitus ulcer sacral Laterality: Not Applicable Type of Debridement: Excisional debridement Anesthesia Used: 5% Lidocaine Gel Depth: Down to and including healthy tissue Percentage of wound debrided: 100 Instrument Used: 3mm curette Tissue Removed: Fibrin Severity: Fat Layer Exposed Amount of bleeding with debridement: Mild Bleeding Controlled with: Compression and gauze Patient tolerated procedure: Patient tolerated procedure well Post-Debridement Measurements and Additional Note: Post-Debridement Measurements/Treatment - Nurse 1 - General Ulcer Assessment Start: 10/30/22 07:59 Freq: Status: Active Protocol: BENIGNO Activity Type Activity Date Activity User E-sign Co-sign Detail Recorded Client Recorded Date Recorded By Document 10/30/22 07:59 [facility] [id number] 10/30/22 08:13 [facility] 10/30/22 07:59 - Today's Visit Information Type of service Follow-up Visit (Physician/SHRIMP PEELING MACHINE TENDER ) Arrival Mode Wheelchair Accompanied by Patient Identification Verified (Name & Yes ) Patient Requires Transmission-Based No Precautions Height and Weight Body Mass Index (BMI) 22.8 BMI Classification Normal Vital Signs Temperature (97.8 F-99.1 F) 96.7 F L Temperature Source Temporal Pulse Rate (60-100) 88 Pulse Location Monitor Respiratory Rate (12-18) 16 Respiratory rate source Observation Oxygen Delivery Method Room Air Blood Pressure (90/60-120/80) 123/74 H Blood Pressure Mean (mm Hg) 90 Source Monitor Position Sitting Blood Pressure Location Left Arm History Since Last Visit- (Skip if this is Patient's initial visit) Have you changed medications since your No last visit? Any new allergies or adverse reactions No Had a fall/change in ADL's that may No increase risk of falls Signs or symptoms of abuse and/or No neglect since last visit Have you been in the hospital since your No last visit? Has dressing in place as prescribed Yes Has compression in place as prescribed N/A Has offloadiing in place as prescribed N/A Experienced any changes in pain level or No management Left Footwear Regular Shoe Right Footwear Regular Shoe Pain Scale: 0-10 Numeric Is Patient Pain Free? Yes - Nurse 1 - General Ulcer Measurement Start: 10/30/22 07:59 Freq: Status: Active Protocol: Activity Type Activity Date Activity User E-sign Co-sign Detail Recorded Client Recorded Date Recorded By Document 10/30/22 07:59 [facility] [id number] 10/30/22 08:13 [facility] 10/30/22 07:59 Wound Center Nurse 1 #1- sacral -Combined with other wound No -Current Size (cm) - Length 0.5 -Current Size (cm) - Width 0.3 -Current Size (cm) - Depth 3 -Total Square Cm 0.15 -Date of Last Picture (Recall this 10/30/22 field) -Photo Taken Yes -Epithelialization None Present -Tunneling Yes -Tunneling Position (O'clock) 12 -Tunneling Distance (cm) 4.3 -Undermining/Tunneling No -Circular Undermining No -Exudate Amt Medium -Exudate Type Serosanguineous -Wound Margin Distinct, Outline Attached -Granulation Amt Large (67-100%) -Granulation Quality Red -Slough/Fibrin No -Necrosis Amt None Present (0 %) -Texture (Neda-wound Skin Appearance) Assessed, Scarring -Moisture (Neda-wound Skin Appearance) Assessed -Color (Neda-wound Skin Appearance) Assessed -Temperature (Neda-wound Skin No Abnormality Appearance) (Pt Warm) -Tenderness on Palpation (Neda-wound No Skin Appearance) -Ulcer Cleansing Rinsed/ Irrigated with Saline -Foul Odor after Cleansing No WC - Nurse 2 - General Ulcer CM Notes Start: 10/30/22 07:59 Freq: Status: Active Protocol: Activity Type Activity Date Activity User E-sign Co-sign Detail Recorded Client Recorded Date Recorded By Document 10/30/22 08:28 MW Desktop 10/30/22 08:30 MW 10/30/22 08:28 Wound Center Nurse 2 -Time 08:29 -Correct Patient Yes -Correct Side, Site, Position Yes -Correct Procedure Yes -Procedure Performed Yes -Type of Procedure Debridement -Clinical Debridement Subcutaneous -Tissue Removed Subcutaneous -Post Debridement (cm) - Length 0.5 -Post Debridement (cm) - Width 0.3 -Post Debridement (cm) - Depth 5.5 -Total Square (Post) (cm) 0.15 -Area of Debridement (cm) - Length 0.5 -Area of Debridement (cm) - Width 0.3 -Total Square (Area) (cm) 0.15 -Tunneling No -Undermining/Tunneling No -Circular Undermining No -Wound/Ulcer Outcome Not Healed -Ulcer Cleansing Rinsed/ Irrigated with Saline -Foul Odor after Cleansing No -Bioengineered Tissue No -Bleeding Controlled with Pressure -Treatment Response Procedure Tolerated Well -Offloading No -Debridement - Subq, 1st 20sq cm Yes Pain Scale: 0-10 Numeric Is Patient Pain Free? Yes WC - Nurse 3 - General Ulcer D/C NN Start: 10/30/22 07:59 Freq: Status: Active Protocol: Activity Type Activity Date Activity User E-sign Co-sign Detail Recorded Client Recorded Date Recorded By Document 10/30/22 08:50 [facility] [id number] 10/30/22 08:50 [facility] 10/30/22 08:50 Wound Care Center Nurse 3 #1- sacral -Ulcer Cleansing Rinsed/ Irrigated with Saline -Foul Odor after Cleansing No -Negative Pressure Wound Therapy Continue -Setting (mmHg) 200 -Negative Pressure is Continuous -NPWT Application Charge NPWT & Debridement (nc ) Treatment Response Procedure Tolerated Well Pain Scale: 0-10 Numeric Is Patient Pain Free? Yes WC - Visit Discharge Discharge Condition Stable Ambulatory Status Wheelchair Transportation Private Auto Accompanied by david Assessment/Plan Assessment/Plan (1) Sacral decubitus ulcer, stage IV: CODE(S): L89.154 - Pressure ulcer of sacral region, stage 4 PLAN: Wash wound with antibacterial soap such as Hibiclens. Pack with white foam and attach wound VAC at 200 mmHg May change as needed for for fullness of tank or from losing a seal. Continue increase protein intake Finished the Augmentin that I&D suggests Also just finished Cipro for 10 days Follow-up 1 week (2) Immobility syndrome (paraplegic): CODE(S): M62.3 - Immobility syndrome (paraplegic)
[2022-10-30 09:47] LABS: Absolute Lymphocyte Count 1.04 X10^3/uL (0.83-4.51); Absolute Neutrophil Count 3.6 X10^3/uL (2.0-7.7); Basophil# 0.04 X10^3/uL; Basophil% 0.8 % (0-1); Eosinophil# 0.13 X10^3/uL; Eosinophils% 2.5 % (0-5); Hematocrit 44.9 % (37-47); Hemoglobin 14.2 g/dL (12.0-15.0); Lymphocyte # 1.04 X10^3/ul (0.83-4.51); Lymphocyte % 19.8 % (19-41); Mean Corp Hgb Conc 31.6 g/dL (32-36); Mean Corpuscular Hgb 28.6 pg (27.0-32.0); Mean Corpuscular Volume 90.5 fL (81-99); Mean Platelet Vol. 9.3 fl (6.2-12.0); Monocyte# 0.36 X10^3/uL; Monocyte% 6.9 % (0-10); NRBC Flagged by Analyzer 0 % (0-5); Neutrophil # 3.64 X10^3/uL (2.7-7.7); Neutrophil % 69.4 % (47-70); Platelet Count 241 K/mm3 (150-450); RBC Distribution Width CV 12.9 % (11.6-14.6); RBC Distribution Width SD 42.3 fl (35.1-43.9); Red Blood Count 4.96 M/mm3 (4.2-5.4); White Blood Count 5.2 K/mm3 (4.4-11.0)
[2022-10-30 10:17] LABS: Vitamin B12 1039 pg/mL (211-911)
[2022-10-30 10:22] LABS: ALB/GLOB Ratio 0.9 RATIO (0.9-2.4); AST(SGOT) 15 U/L (15-37); Alanine Aminotransfer ALT/SGPT 15 U/L (13-56); Albumin, Serum 3.5 g/dL (3.2-5.0); Alkaline Phosphatase 87 U/L (45-117); Anion Gap 2 (5-15); BUN 14 mg/dL (7-18); Calcium,Total 8.7 mg/dL (8.5-10.1); Chloride 111 mmol/L (98-107); Creatinine, Serum 0.54 mg/dL (0.55-1.02); EST Glomerular Filtration Rate 129 mL/min (>60); Est Glom Filt Rate - Afr Amer 156 mL/min (>60); Globulin 3.9 g/dL (2.2-4.2); Glucose 68 mg/dL (74-106); Lipase 45 U/L (13-75); Magnesium 1.9 mg/dL (1.6-2.6); Potassium 3.5 mmol/L (3.5-5.1); Prealbumin 20.1 mg/dL (20.0-40.0); Protein, Total 7.4 g/dL (6.4-8.2); Sodium Level 143 mmol/L (136-145)
[2022-11-06 08:09] VITALS: BP 106/67; PULSE 82; RESP 16; TEMP 36; BMI 22.8
--- NOTE | 2022-11-06 08:45 | PN.PCM_ITS ---
History of Present Illness Date of Service: 11/06/22 Chief Complaint: WOUND CENTER CONSULTATION REFERRING PROVIDER: KYRA Vivar. LEAD APPLICATION ARCHITECT: Dr. Gregory. Sacral pressure sore, Stage IV. History of Wound: 46-year-old woman who presented to the Wound Center with a sacral pressure sore, Stage IV, and associated osteomyelitis. 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 During this time she was also diagnosed with MS. She developed a sacral pressure sore that was excised and debrided in the operating room in [place] at [facility] in October,. Cultures (soft tissue and bone) showed Peptostreptococcus, Bacteroides, and E. coli. She was treated with IV Ertapenem for the osteomyelitis. 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 At her Wound Center visit last week, 06/26/22, she had a wound culture. It showed Staphylococcus aureus and Corynebacterium striatum. Will start her on Augmentin. She had labs done at last visit as well. Hgb was 12.6. Potassium was 3.5. BUN/Creat was 11/0.50. Prealbumin was 15.3 now 18 A MRI scan has been ordered and is back and showing no osteomyelitis. I was asked to evaluate this patient for surgical options for treatment including HBO. Progress of Wound: The outside is smaller but the inside still has tunneling about 5.5 cm. We increased her wound VAC to 200 Bleeds easily with debridement we will culture this week to make sure there is no infection again. Subjective Subjective Patient is okay with treatment so far Objective Data Objective Data The wound is smaller on the outside and basically a 5.5 depth in the inside have a hard time with the tunneling she is tolerating the 200 mmHg of pressure Went over her lab work her prealbumin is finally at 20 continue drinking protein and eating protein CBC shows no sign of anemia which is good sugars are good Vital Signs: Vital Signs Temp Pulse Resp BP O2 Del Method 96.8 F L 82 16 106/67 Room Air 11/06/22 08:09 11/06/22 08:09 11/06/22 08:09 11/06/22 08:09 11/06/22 08:09 Oxygen Delivery Method Room Air Weight: 145 lb 9.6 oz Body Mass Index (BMI) 22.8 Lab / Micro Data Attestation: I reviewed the patient's lab results. Result Diagrams: 10/30/22 09:00 10/30/22 09:00 Physical Exam Const oriented x3 General Appearance: cooperative Exam Limitations: no limitations HEENT normocephalic Head and Scalp: normal to inspection Face and Sinus: normal facial exam Nose: external nose normal General Ear: hearing grossly impaired External Ear: external ears normal Mouth: oral and palatal mucosa normal Eyes PERRL General Eye: normal appearance of both eyes Neck full ROM General: normal visual inspection Resp normal respiratory effort Effort and Inspection: able to speak in complete sentences Auscultation: clear to auscultation bilaterally Cardio regular rate and regular rhythm Palpation: normal PMI Rate: regular rate Rhythm: regular rhythm GI Auscultation: normoactive bowel sounds Palpation: soft and no hepatosplenomegaly Back/Spine Cervical Spine: cervical ROM normal Thoracic Spine / Upper Back: normal to inspection Lumbar Spine / Lower Back: normal to inspection Extremity normal to inspection General Extremity: normal exam except as noted Skin no rashes or lesions noted Wounds: wounds noted Wound Narrative: Stage IV sacral wound with tunneling Hair: normal Nails: normal Neuro oriented x3 Psych Appearance: grossly normal Speech: normal speech Thought Content: normal thought content Judgement: judgement good Debridement Note Debridement Note Wound debrided: Sacral pressure wound Wound Grade/Stage: Stage IV Type of Debridement: Excisional debridement Anesthesia Used: 5% Lidocaine Gel Depth: Down to and including healthy tissue and in the subcutaneous layer Instrument Used: 5mm curette Tissue Removed: Fibrin Severity: Fat Layer Exposed Bleeding Controlled with: Compression and gauze Patient tolerated procedure: Patient tolerated procedure well Post-Debridement Measurements and Additional Note: Post-Debridement Measurements/Treatment WC - Nurse 1 - General Ulcer Assessment Start: 10/30/22 07:59 Freq: Status: Active Protocol: BENIGNO Activity Type Activity Date Activity User E-sign Co-sign Detail Recorded Client Recorded Date Recorded By Document 10/30/22 07:59 [facility] [id number] 10/30/22 08:13 BM Document 11/06/22 08:09 [facility] [id number] 11/06/22 08:16 [facility] 10/30/22 11/06/22 07:59 08:09 - Today's Visit Information Type of service Follow-up Visit Follow-up Visit (Physician/ELECTRICAL LOGGER (Physician/ELECTRICAL LOGGER ) ) Arrival Mode Wheelchair Wheelchair Transfer Assistance None Accompanied by Patient Identification Verified (Name & Yes Yes ) Patient Requires Transmission-Based No No Precautions Height and Weight Body Mass Index (BMI) 22.8 22.8 BMI Classification Normal Normal Vital Signs Temperature (97.8 F-99.1 F) 96.7 F L 96.8 F L Temperature Source Temporal Temporal Pulse Rate (60-100) 88 82 Pulse Location Monitor Monitor Respiratory Rate (12-18) 16 16 Respiratory rate source Observation Observation Oxygen Delivery Method Room Air Room Air Blood Pressure (90/60-120/80) 123/74 H 106/67 Blood Pressure Mean (mm Hg) 90 80 Source Monitor Monitor Position Sitting Sitting Blood Pressure Location Left Arm Left Arm History Since Last Visit- (Skip if this is Patient's initial visit) Have you changed medications since your No No last visit? Any new allergies or adverse reactions No No Had a fall/change in ADL's that may No No increase risk of falls Signs or symptoms of abuse and/or No No neglect since last visit Have you been in the hospital since your No No last visit? Has dressing in place as prescribed Yes Yes Has compression in place as prescribed N/A N/A Has offloadiing in place as prescribed N/A N/A Experienced any changes in pain level or No No management Left Footwear Regular Shoe Regular Shoe Right Footwear Regular Shoe Regular Shoe Pain Scale: 0-10 Numeric Is Patient Pain Free? Yes Yes - Nurse 1 - General Ulcer Measurement Start: 10/30/22 07:59 Freq: Status: Active Protocol: Activity Type Activity Date Activity User E-sign Co-sign Detail Recorded Client Recorded Date Recorded By Document 10/30/22 07:59 [facility] [id number] 10/30/22 08:13 [facility] Document 11/06/22 08:09 [facility] [id number] 11/06/22 08:16 [facility] 10/30/22 11/06/22 07:59 08:09 Wound Center Nurse 1 #1- sacral -Combined with other wound No No -Current Size (cm) - Length 0.5 0.6 -Current Size (cm) - Width 0.3 0.3 -Current Size (cm) - Depth 3 3 -Total Square Cm 0.15 0.18 -Date of Last Picture (Recall this 10/30/22 field) -Photo Taken Yes -Epithelialization None Present -Tunneling Yes Yes -Tunneling Position (O'clock) 12 12 -Tunneling Distance (cm) 4.3 3.5 -Undermining/Tunneling No No -Circular Undermining No No -Exudate Amt Medium Medium -Exudate Type Serosanguineous Serosanguineous -Wound Margin Distinct, Distinct, Outline Outline Attached Attached -Granulation Amt Large (67-100%) Large (67-100%) -Granulation Quality Red Red -Slough/Fibrin No No -Necrosis Amt None Present (0 None Present (0 %) %) -Texture (Neda-wound Skin Appearance) Assessed, Assessed, Scarring Scarring -Moisture (Neda-wound Skin Appearance) Assessed Assessed -Color (Neda-wound Skin Appearance) Assessed Assessed -Temperature (Neda-wound Skin No Abnormality No Abnormality Appearance) (Pt Warm) (Pt Warm) -Tenderness on Palpation (Neda-wound No No Skin Appearance) -Ulcer Cleansing Rinsed/ Rinsed/ Irrigated with Irrigated with Saline Saline -Foul Odor after Cleansing No No WC - Nurse 2 - General Ulcer CM Notes Start: 10/30/22 07:59 Freq: Status: Active Protocol: Activity Type Activity Date Activity User E-sign Co-sign Detail Recorded Client Recorded Date Recorded By Document 10/30/22 08:28 MW Desktop 10/30/22 08:30 MW Document 11/06/22 08:27 MW [id number] 11/06/22 08:29 MW 10/30/22 11/06/22 08:28 08:27 Wound Center Nurse 2 #1- sacral -Time 08:29 08:27 -Correct Patient Yes Yes -Correct Side, Site, Position Yes Yes -Correct Procedure Yes Yes -Procedure Performed Yes Yes -Type of Procedure Debridement Debridement -Clinical Debridement Subcutaneous Subcutaneous -Tissue Removed Subcutaneous Subcutaneous -Post Debridement (cm) - Length 0.5 0.5 -Post Debridement (cm) - Width 0.3 0.3 -Post Debridement (cm) - Depth 5.5 5.4 -Total Square (Post) (cm) 0.15 0.15 -Area of Debridement (cm) - Length 0.5 0.5 -Area of Debridement (cm) - Width 0.3 0.3 -Total Square (Area) (cm) 0.15 0.15 -Tunneling No No -Undermining/Tunneling No No -Circular Undermining No No -Wound/Ulcer Outcome Not Healed Not Healed -Ulcer Cleansing Rinsed/ Rinsed/ Irrigated with Irrigated with Saline Saline -Foul Odor after Cleansing No No -Bioengineered Tissue No No -Bleeding Controlled with Pressure Pressure -Treatment Response Procedure Procedure Tolerated Well Tolerated Well -Offloading No No -Debridement - Subq, 1st 20sq cm Yes Yes Pain Scale: 0-10 Numeric Is Patient Pain Free? Yes Yes - Nurse 3 - General Ulcer D/C NN Start: 10/30/22 07:59 Freq: Status: Active Protocol: Activity Type Activity Date Activity User E-sign Co-sign Detail Recorded Client Recorded Date Recorded By Document 10/30/22 08:50 [facility] [id number] 10/30/22 08:50 [facility] Document 11/06/22 08:44 [facility] [id number] 11/06/22 08:44 [facility] 10/30/22 11/06/22 08:50 08:44 Wound Care Center Nurse 3 #1- sacral -Ulcer Cleansing Rinsed/ Rinsed/ Irrigated with Irrigated with Saline Saline -Foul Odor after Cleansing No No -Negative Pressure Wound Therapy Continue Continue -Setting (mmHg) 200 200 -Negative Pressure is Continuous Continuous -Other Dressing white foam to tunnel -NPWT Application Charge NPWT & NPWT & Debridement (nc Debridement (nc ) ) Treatment Response Procedure Procedure Tolerated Well Tolerated Well Pain Scale: 0-10 Numeric Is Patient Pain Free? Yes Yes - Visit Discharge Discharge Condition Stable Stable Ambulatory Status Wheelchair Wheelchair Transportation Private Auto Private Auto Accompanied by david Assessment/Plan Assessment/Plan (1) Sacral decubitus ulcer, stage IV: CODE(S): L89.154 - Pressure ulcer of sacral region, stage 4 PLAN: Wash wound with antibacterial soap such as Hibiclens. Pack with white foam and attach wound VAC at 200 mmHg May change as needed for for fullness of tank or from losing a seal. Continue increase protein intake Follow-up 1 week (2) Immobility syndrome (paraplegic): CODE(S): M62.3 - Immobility syndrome (paraplegic)
[2022-11-13 08:01] VITALS: BP 107/66; PULSE 92; RESP 16; TEMP 35.9; BMI 22.8
--- NOTE | 2022-11-13 08:46 | PCM.WC.PN ---
History of Present Illness Date of Service: 11/13/22 Chief Complaint: WOUND CENTER CONSULTATION REFERRING PROVIDER: KYRA Vivar. MEDICAL RECORDS CUSTODIAN: Dr. Gregory. Sacral pressure sore, Stage IV. History of Wound: 46-year-old woman who presented to the Wound Center with a sacral pressure sore, Stage IV, and associated osteomyelitis. 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 During this time she was also diagnosed with MS. She developed a sacral pressure sore that was excised and debrided in the operating room in [place] at [facility] in October,. Cultures (soft tissue and bone) showed Peptostreptococcus, Bacteroides, and E. coli. She was treated with IV Ertapenem for the osteomyelitis. 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 At her Wound Center visit last week, 06/26/22, she had a wound culture. It showed Staphylococcus aureus and Corynebacterium striatum. Will start her on Augmentin. She had labs done at last visit as well. Hgb was 12.6. Potassium was 3.5. BUN/Creat was 11/0.50. Prealbumin was 15.3 now 18 A MRI scan has been ordered and is back and showing no osteomyelitis. I was asked to evaluate this patient for surgical options for treatment including HBO. Progress of Wound: The outside is smaller but the inside still has tunneling about 5.5 cm. We increased her wound VAC to 200 Bleeds easily with debridement we will culture this week to make sure there is no infection again. Draining a serous thick drainage from the wound no odor. Cultures grew nothing. Subjective Subjective Discussed with patient about surgery consult again and she was willing to talk to Dr. Gregory Objective Data Objective Data Wound is exactly the same and no change no odor no discharge other than what I debrided out she did have some serous thick drainage coming out Vital Signs: Vital Signs Temp Pulse Resp BP O2 Del Method 96.6 F L 92 16 107/66 Room Air 11/13/22 08:01 11/13/22 08:01 11/13/22 08:01 11/13/22 08:01 11/13/22 08:01 Oxygen Delivery Method Room Air Weight: 145 lb 9.6 oz Body Mass Index (BMI) 22.8 Lab / Micro Data Attestation: I reviewed the patient's lab results. Result Diagrams: 10/30/22 09:00 10/30/22 09:00 Micro: Microbiology 11/07/22 08:30 Wound Abcess - Sacral Gram Stain - Final 11/07/22 08:30 Wound Abcess - Sacral Wound Culture - Final Gram positive zarina 11/07/22 08:30 Wound Abcess - Sacral Anaerobic Culture - Final No anaerobic bacteria isolated. Debridement Note Debridement Note Wound debrided: Sacral decubitus Wound Grade/Stage: Stage IV Type of Debridement: Excisional debridement Anesthesia Used: 5% Lidocaine Gel Depth: Down to and including healthy tissue and in the subcutaneous layer Percentage of wound debrided: 100 Instrument Used: 5mm curette Tissue Removed: Fibrin Severity: Fat Layer Exposed Amount of bleeding with debridement: Mild Bleeding Controlled with: Compression and gauze Patient tolerated procedure: Patient tolerated procedure well Post-Debridement Measurements and Additional Note: Post-Debridement Measurements/Treatment - Nurse 1 - General Ulcer Assessment Start: 10/30/22 07:59 Freq: Status: Active Protocol: DEBBI.SHAR Activity Type Activity Date Activity User E-sign Co-sign Detail Recorded Client Recorded Date Recorded By Document 10/30/22 07:59 [facility] [id number] 10/30/22 08:13 [facility] Document 11/06/22 08:09 [facility] [id number] 11/06/22 08:16 [facility] Document 11/13/22 08:01 [facility] [id number] 11/13/22 08:10 [facility] 10/30/22 11/06/22 11/13/22 07:59 08:09 08:01 - Today's Visit Information Type of service Follow-up Visit Follow-up Visit (Physician/REMOVABLE PROSTHODONTIST (Physician/REMOVABLE PROSTHODONTIST ) ) Arrival Mode Wheelchair Wheelchair Wheelchair Transfer Assistance None Other Transfer Assist (Other) slide board Accompanied by kimanib Patient Identification Verified (Name & Yes Yes Yes ) Patient Requires Transmission-Based No No No Precautions Height and Weight Body Mass Index (BMI) 22.8 22.8 22.8 BMI Classification Normal Normal Normal Vital Signs Temperature (97.8 F-99.1 F) 96.7 F L 96.8 F L 96.6 F L Temperature Source Temporal Temporal Temporal Pulse Rate (60-100) 88 82 92 Pulse Location Monitor Monitor Monitor Respiratory Rate (12-18) 16 16 16 Respiratory rate source Observation Observation Observation Oxygen Delivery Method Room Air Room Air Room Air Blood Pressure (90/60-120/80) 123/74 H 106/67 107/66 Blood Pressure Mean (mm Hg) 90 80 79 Source Monitor Monitor Monitor Position Sitting Sitting Sitting Blood Pressure Location Left Arm Left Arm Left Arm History Since Last Visit- (Skip if this is Patient's initial visit) Have you changed medications since your No No No last visit? Any new allergies or adverse reactions No No No Had a fall/change in ADL's that may No No No increase risk of falls Signs or symptoms of abuse and/or No No No neglect since last visit Have you been in the hospital since your No No No last visit? Has dressing in place as prescribed Yes Yes Yes Has compression in place as prescribed N/A N/A N/A Has offloadiing in place as prescribed N/A N/A N/A Experienced any changes in pain level or No No No management Left Footwear Regular Shoe Regular Shoe Regular Shoe Right Footwear Regular Shoe Regular Shoe Regular Shoe Pain Scale: 0-10 Numeric Is Patient Pain Free? Yes Yes Yes WC - Nurse 1 - General Ulcer Measurement Start: 10/30/22 07:59 Freq: Status: Active Protocol: Activity Type Activity Date Activity User E-sign Co-sign Detail Recorded Client Recorded Date Recorded By Document 10/30/22 07:59 [facility] [id number] 10/30/22 08:13 [facility] Document 11/06/22 08:09 [facility] [id number] 11/06/22 08:16 [facility] Document 11/13/22 08:01 [facility] [id number] 11/13/22 08:10 [facility] 10/30/22 11/06/22 11/13/22 07:59 08:09 08:01 Wound Center Nurse 1 #1- sacral -Combined with other wound No No No -Current Size (cm) - Length 0.5 0.6 0.5 -Current Size (cm) - Width 0.3 0.3 0.2 -Current Size (cm) - Depth 3 3 3.7 -Total Square Cm 0.15 0.18 0.10 -Date of Last Picture (Recall this 10/30/22 11/13/22 field) -Photo Taken Yes Yes -Epithelialization None Present None Present -Tunneling Yes Yes Yes -Tunneling Position (O'clock) 12 12 12 -Tunneling Distance (cm) 4.3 3.5 5.5 -Undermining/Tunneling No No No -Circular Undermining No No No -Exudate Amt Medium Medium Large -Exudate Type Serosanguineous Serosanguineous Serosanguineous -Wound Margin Distinct, Distinct, Distinct, Outline Outline Outline Attached Attached Attached -Granulation Amt Large (67-100%) Large (67-100%) Large (67-100%) -Granulation Quality Red [place] -Slough/Fibrin No No No -Necrosis Amt None Present (0 None Present (0 None Present (0 %) %) %) -Texture (Neda-wound Skin Appearance) Assessed, Assessed, Assessed, Scarring Scarring Scarring -Moisture (Neda-wound Skin Appearance) Assessed Assessed Assessed, Maceration -Color (Neda-wound Skin Appearance) Assessed Assessed Assessed -Temperature (Neda-wound Skin No Abnormality No Abnormality No Abnormality Appearance) (Pt Warm) (Pt Warm) (Pt Warm) -Tenderness on Palpation (Neda-wound No No No Skin Appearance) -Ulcer Cleansing Rinsed/ Rinsed/ Soap and Water Irrigated with Irrigated with Saline Saline -Foul Odor after Cleansing No No No WC - Nurse 2 - General Ulcer CM Notes Start: 10/30/22 07:59 Freq: Status: Active Protocol: Activity Type Activity Date Activity User E-sign Co-sign Detail Recorded Client Recorded Date Recorded By Document 10/30/22 08:28 MW Desktop 10/30/22 08:30 MW Document 11/06/22 08:27 MW [id number] 11/06/22 08:29 MW Document 11/13/22 08:32 MW [id number] 11/13/22 08:35 MW 10/30/22 11/06/22 11/13/22 08:28 08:27 08:32 Wound Center Nurse 2 #1- sacral -Time 08:29 08:27 08:32 -Correct Patient Yes Yes Yes -Correct Side, Site, Position Yes Yes Yes -Correct Procedure Yes Yes Yes -Procedure Performed Yes Yes Yes -Type of Procedure Debridement Debridement Debridement -Clinical Debridement Subcutaneous Subcutaneous Subcutaneous -Tissue Removed Subcutaneous Subcutaneous Subcutaneous -Post Debridement (cm) - Length 0.5 0.5 0.5 -Post Debridement (cm) - Width 0.3 0.3 0.3 -Post Debridement (cm) - Depth 5.5 5.4 5.5 -Total Square (Post) (cm) 0.15 0.15 0.15 -Area of Debridement (cm) - Length 0.5 0.5 0.5 -Area of Debridement (cm) - Width 0.3 0.3 0.3 -Total Square (Area) (cm) 0.15 0.15 0.15 -Tunneling No No No -Undermining/Tunneling No No No -Circular Undermining No No No -Wound/Ulcer Outcome Not Healed Not Healed Not Healed -Ulcer Cleansing Rinsed/ Rinsed/ Rinsed/ Irrigated with Irrigated with Irrigated with Saline Saline Saline -Foul Odor after Cleansing No No No -Bioengineered Tissue No No No -Bleeding Controlled with Pressure Pressure Pressure -Treatment Response Procedure Procedure Procedure Tolerated Well Tolerated Well Tolerated Well -Offloading No No No -Debridement - Subq, 1st 20sq cm Yes Yes Yes Pain Scale: 0-10 Numeric Is Patient Pain Free? Yes Yes Yes - Nurse 3 - General Ulcer D/C NN Start: 10/30/22 07:59 Freq: Status: Active Protocol: Activity Type Activity Date Activity User E-sign Co-sign Detail Recorded Client Recorded Date Recorded By Document 10/30/22 08:50 [facility] [id number] 10/30/22 08:50 [facility] Document 11/06/22 08:44 [facility] [id number] 11/06/22 08:44 BMF 10/30/22 11/06/22 08:50 08:44 Wound Care Center Nurse 3 #1- sacral -Ulcer Cleansing Rinsed/ Rinsed/ Irrigated with Irrigated with Saline Saline -Foul Odor after Cleansing No No -Negative Pressure Wound Therapy Continue Continue -Setting (mmHg) 200 200 -Negative Pressure is Continuous Continuous -Other Dressing white foam to tunnel -NPWT Application Charge NPWT & NPWT & Debridement (nc Debridement (nc ) ) Treatment Response Procedure Procedure Tolerated Well Tolerated Well Pain Scale: 0-10 Numeric Is Patient Pain Free? Yes Yes WC - Visit Discharge Discharge Condition Stable Stable Ambulatory Status Wheelchair Wheelchair Transportation Private Auto Private Auto Accompanied by husb Assessment/Plan Assessment/Plan (1) Sacral decubitus ulcer, stage IV: CODE(S): L89.154 - Pressure ulcer of sacral region, stage 4 PLAN: Wash wound with antibacterial soap such as Hibiclens. Pack with white foam and attach wound VAC at 200 mmHg May change as needed for for fullness of tank or from losing a seal. Consult with Dr. Gregory for next week Continue increase protein intake Follow-up 1 week (2) Immobility syndrome (paraplegic): CODE(S): M62.3 - Immobility syndrome (paraplegic)
[2022-11-21 16:08] VITALS: BP 117/58; PULSE 83; TEMP 36.5; BMI 22.8
--- NOTE | 2022-11-21 17:34 | PCM.WC.PN ---
History of Present Illness Date of Service: 11/21/22 Chief Complaint: Sacral pressure sore, Stage IV. History of Wound: 46-year-old woman who presented to the Wound Center with a sacral pressure sore, Stage IV, and associated osteomyelitis. 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 During this time she was also diagnosed with MS. She developed a sacral pressure sore that was excised and debrided in the operating room in [place] at [facility] in October,. Cultures (soft tissue and bone) showed Peptostreptococcus, Bacteroides, and E. coli. She was treated with IV Ertapenem for the osteomyelitis. 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 At her Wound Center visit last week, 06/26/22, she had a wound culture. It showed Staphylococcus aureus and Corynebacterium striatum. Will start her on Augmentin. She had labs done at last visit as well. Hgb was 12.6. Potassium was 3.5. BUN/Creat was 11/0.50. Prealbumin was 15.3 now 18 A MRI scan has been ordered and is back and showing no osteomyelitis. I was asked to evaluate this patient for surgical options for treatment including HBO. Initially she wanted to heal the pressure sore without surgery. She is finally resigned to the reality that an operative excision is necessary for healing. It will be easier for the VAC to work because it would be placed under direct vision. Also if osteomyelitis is seen on Pathology after the surgery, she would qualify for HBO treatments which would be a huge benefit in the healing process. Progress of Wound: The outside is smaller but the inside still has tunneling about 5.5 cm. Objective Data Objective Data Vital Signs: Vital Signs Temp Pulse Resp BP O2 Del Method 97.7 F L 83 16 117/58 L Room Air 11/21/22 16:08 11/21/22 16:08 11/13/22 08:01 11/21/22 16:08 11/13/22 08:01 Oxygen Delivery Method Room Air Weight: 145 lb 9.6 oz Body Mass Index (BMI) 22.8 Lab / Micro Data Attestation: I reviewed the patient's lab results. 10/30/22 09:00 10/30/22 09:00 Micro: Microbiology 11/07/22 08:30 Wound Abcess - Sacral Gram Stain - Final 11/07/22 08:30 Wound Abcess - Sacral Wound Culture - Final Gram positive zarina 11/07/22 08:30 Wound Abcess - Sacral Anaerobic Culture - Final No anaerobic bacteria isolated. Charges/Coding Procedures Integumentary 111xxx-113xx: [id number] Tran musc/fascia 20 sq cm/< (ICD-10 - L89.154, M86.9, M62.3, G35, Z79.620, Z87.891) Debridement Note Debridement Note Wound debrided: #1 Sacral area. Laterality: Not Applicable Wound Grade/Stage: Stage IV Type of Debridement: Excisional debridement Anesthesia Used: 5% Lidocaine Gel Depth: Down to and including healthy tissue, in the subcutaneous layer, to muscle and to bone (bone is palpable but not debrided.) Percentage of wound debrided: 100 Instrument Used: 3mm curette Tissue Removed: subcutaneous tissue and muscle. Severity: Fat Layer Exposed (muscle is exposed. bone is palpable but not debrided.) Amount of bleeding with debridement: Mild Bleeding Controlled with: Pressure and Compression and gauze Patient tolerated procedure: Patient tolerated procedure well Post-Debridement Measurements and Additional Note: Post-Debridement Measurements/Treatment - Nurse 1 - General Ulcer Assessment Start: 10/30/22 07:59 Freq: Status: Active Protocol: DEBBI.LOWEXT Activity Type Activity Date Activity User E-sign Co-sign Detail Recorded Client Recorded Date Recorded By Document 10/30/22 07:59 [facility] [id number] 10/30/22 08:13 [facility] Document 11/06/22 08:09 [facility] [id number] 11/06/22 08:16 BM Document 11/13/22 08:01 BM [id number] 11/13/22 08:10 BM Document 11/21/22 16:08 [place] [id number] 11/21/22 16:10 [place] 10/30/22 11/06/22 11/13/22 07:59 08:09 08:01 - Today's Visit Information Type of service Follow-up Visit Follow-up Visit (Physician/FUNERAL ARRANGER (Physician/FUNERAL ARRANGER ) ) Arrival Mode Wheelchair Wheelchair Wheelchair Transfer Assistance None Other Transfer Assist (Other) slide board Accompanied by kimanib Patient Identification Verified (Name & Yes Yes Yes ) Patient Requires Transmission-Based No No No Precautions Height and Weight Body Mass Index (BMI) 22.8 22.8 22.8 BMI Classification Normal Normal Normal Vital Signs Temperature (97.8 F-99.1 F) 96.7 F L 96.8 F L 96.6 F L Temperature Source Temporal Temporal Temporal Pulse Rate (60-100) 88 82 92 Pulse Location Monitor Monitor Monitor Respiratory Rate (12-18) 16 16 16 Respiratory rate source Observation Observation Observation Oxygen Delivery Method Room Air Room Air Room Air Blood Pressure (90/60-120/80) 123/74 H 106/67 107/66 Blood Pressure Mean (mm Hg) 90 80 79 Source Monitor Monitor Monitor Position Sitting Sitting Sitting Blood Pressure Location Left Arm Left Arm Left Arm History Since Last Visit- (Skip if this is Patient's initial visit) Have you changed medications since your No No No last visit? Any new allergies or adverse reactions No No No Had a fall/change in ADL's that may No No No increase risk of falls Signs or symptoms of abuse and/or No No No neglect since last visit Have you been in the hospital since your No No No last visit? Has dressing in place as prescribed Yes Yes Yes Has compression in place as prescribed N/A N/A N/A Has offloadiing in place as prescribed N/A N/A N/A Experienced any changes in pain level or No No No management Left Footwear Regular Shoe Regular Shoe Regular Shoe Right Footwear Regular Shoe Regular Shoe Regular Shoe Pain Scale: 0-10 Numeric Is Patient Pain Free? Yes Yes Yes 11/21/22 16:08 - Today's Visit Information Type of service Follow-up Visit (Physician/FUNERAL ARRANGER ) Arrival Mode Wheelchair Transfer Assistance Transfer Assist (Other) Accompanied by Patient Identification Verified (Name & Yes ) Patient Requires Transmission-Based No Precautions Height and Weight Body Mass Index (BMI) 22.8 BMI Classification Normal Vital Signs Temperature (97.8 F-99.1 F) 97.7 F L Temperature Source Temporal Pulse Rate (60-100) 83 Pulse Location Monitor Respiratory Rate (12-18) Respiratory rate source Oxygen Delivery Method Blood Pressure (90/60-120/80) 117/58 L Blood Pressure Mean (mm Hg) 77 Source Monitor Position Blood Pressure Location History Since Last Visit- (Skip if this is Patient's initial visit) Have you changed medications since your No last visit? Any new allergies or adverse reactions No Had a fall/change in ADL's that may No increase risk of falls Signs or symptoms of abuse and/or No neglect since last visit Have you been in the hospital since your last visit? Has dressing in place as prescribed Yes Has compression in place as prescribed N/A Has offloadiing in place as prescribed N/A Experienced any changes in pain level or No management Left Footwear Regular Shoe Right Footwear Regular Shoe Pain Scale: 0-10 Numeric Is Patient Pain Free? Yes WC - Nurse 1 - General Ulcer Measurement Start: 10/30/22 07:59 Freq: Status: Active Protocol: Activity Type Activity Date Activity User E-sign Co-sign Detail Recorded Client Recorded Date Recorded By Document 10/30/22 07:59 [facility] [id number] 10/30/22 08:13 [facility] Document 11/06/22 08:09 [facility] [id number] 11/06/22 08:16 [facility] Document 11/13/22 08:01 [facility] [id number] 11/13/22 08:10 [facility] Document 11/21/22 16:08 MA [id number] 11/21/22 16:10 [place] 10/30/22 11/06/22 11/13/22 07:59 08:09 08:01 Wound Center Nurse 1 #1- sacral -Combined with other wound No No No -Current Size (cm) - Length 0.5 0.6 0.5 -Current Size (cm) - Width 0.3 0.3 0.2 -Current Size (cm) - Depth 3 3 3.7 -Total Square Cm 0.15 0.18 0.10 -Date of Last Picture (Recall this 10/30/22 11/13/22 field) -Photo Taken Yes Yes -Epithelialization None Present None Present -Tunneling Yes Yes Yes -Tunneling Position (O'clock) 12 12 12 -Tunneling Distance (cm) 4.3 3.5 5.5 -Undermining/Tunneling No No No -Circular Undermining No No No -Change in Wound Grade/Stage -Exudate Amt Medium Medium Large -Exudate Type Serosanguineous Serosanguineous Serosanguineous -Wound Margin Distinct, Distinct, Distinct, Outline Outline Outline Attached Attached Attached -Granulation Amt Large (67-100%) Large (67-100%) Large (67-100%) -Granulation Quality Red Red [place] -Slough/Fibrin No No No -Necrosis Amt None Present (0 None Present (0 None Present (0 %) %) %) -Necrotic Tissue Type -Structure Exposed -Texture (Neda-wound Skin Appearance) Assessed, Assessed, Assessed, Scarring Scarring Scarring -Moisture (Neda-wound Skin Appearance) Assessed Assessed Assessed, Maceration -Color (Neda-wound Skin Appearance) Assessed Assessed Assessed -Temperature (Neda-wound Skin No Abnormality No Abnormality No Abnormality Appearance) (Pt Warm) (Pt Warm) (Pt Warm) -Tenderness on Palpation (Neda-wound No No No Skin Appearance) -Ulcer Cleansing Rinsed/ Rinsed/ Soap and Water Irrigated with Irrigated with Saline Saline -Foul Odor after Cleansing No No No 11/21/22 16:08 Wound Center Nurse 1 #1- sacral -Combined with other wound No -Current Size (cm) - Length 0.2 -Current Size (cm) - Width 0.2 -Current Size (cm) - Depth 4 -Total Square Cm 0.04 -Date of Last Picture (Recall this field) -Photo Taken No -Epithelialization -Tunneling No -Tunneling Position (O'clock) -Tunneling Distance (cm) -Undermining/Tunneling No -Circular Undermining No -Change in Wound Grade/Stage No -Exudate Amt Medium -Exudate Type Serosanguineous -Wound Margin Distinct, Outline Attached -Granulation Amt Large (67-100%) -Granulation Quality [place] -Slough/Fibrin Yes -Necrosis Amt Small (1-33%) -Necrotic Tissue Type Adherent Slough -Structure Exposed N/A -Texture (Neda-wound Skin Appearance) Assessed, Scarring -Moisture (Neda-wound Skin Appearance) No Abnormality, Assessed -Color (Neda-wound Skin Appearance) No Abnormality, Assessed -Temperature (Neda-wound Skin No Abnormality Appearance) (Pt Warm) -Tenderness on Palpation (Neda-wound No Skin Appearance) -Ulcer Cleansing Rinsed/ Irrigated with Saline -Foul Odor after Cleansing No WC - Nurse 2 - General Ulcer CM Notes Start: 10/30/22 07:59 Freq: Status: Active Protocol: Activity Type Activity Date Activity User E-sign Co-sign Detail Recorded Client Recorded Date Recorded By Document 10/30/22 08:28 MW Desktop 10/30/22 08:30 MW Document 11/06/22 08:27 MW [id number] 11/06/22 08:29 MW Document 11/13/22 08:32 MW [id number] 11/13/22 08:35 MW Document 11/21/22 16:21 [id number] 11/21/22 16:31 JF 10/30/22 11/06/22 11/13/22 08:28 08:27 08:32 Wound Center Nurse 2 #1- sacral -Time 08:29 08:27 08:32 -Correct Patient Yes Yes Yes -Correct Side, Site, Position Yes Yes Yes -Correct Procedure Yes Yes Yes -Procedure Performed Yes Yes Yes -Type of Procedure Debridement Debridement Debridement -Clinical Debridement Subcutaneous Subcutaneous Subcutaneous -Tissue Removed Subcutaneous Subcutaneous Subcutaneous -Post Debridement (cm) - Length 0.5 0.5 0.5 -Post Debridement (cm) - Width 0.3 0.3 0.3 -Post Debridement (cm) - Depth 5.5 5.4 5.5 -Total Square (Post) (cm) 0.15 0.15 0.15 -Area of Debridement (cm) - Length 0.5 0.5 0.5 -Area of Debridement (cm) - Width 0.3 0.3 0.3 -Total Square (Area) (cm) 0.15 0.15 0.15 -Tunneling No No No -Undermining/Tunneling No No No -Undermining/Tunneling Starts (O'clock ) -Undermining/Tunneling Ends (O'clock) -Maximum Distance (cm) -Circular Undermining No No No -Wound/Ulcer Outcome Not Healed Not Healed Not Healed -Ulcer Cleansing Rinsed/ Rinsed/ Rinsed/ Irrigated with Irrigated with Irrigated with Saline Saline Saline -Foul Odor after Cleansing No No No -Bioengineered Tissue No No No -Bleeding Controlled with Pressure Pressure Pressure -Treatment Response Procedure Procedure Procedure Tolerated Well Tolerated Well Tolerated Well -Offloading No No No -Pressure Reduction -Debridement - Subq, 1st 20sq cm Yes Yes Yes -Debridement - Muscle / Fascia, 1st 20sq cm Pain Scale: 0-10 Numeric Is Patient Pain Free? Yes Yes Yes 11/21/22 16:21 Wound Center Nurse 2 #1- sacral -Time 16:22 -Correct Patient Yes -Correct Side, Site, Position Yes -Correct Procedure Yes -Procedure Performed Yes -Type of Procedure Debridement -Clinical Debridement Muscle / Fascia -Tissue Removed Muscle,Fascia -Post Debridement (cm) - Length 0.5 -Post Debridement (cm) - Width 0.4 -Post Debridement (cm) - Depth 3.5 -Total Square (Post) (cm) 0.20 -Area of Debridement (cm) - Length 0.5 -Area of Debridement (cm) - Width 0.4 -Total Square (Area) (cm) 0.20 -Tunneling No -Undermining/Tunneling Yes -Undermining/Tunneling Starts (O'clock 11 ) -Undermining/Tunneling Ends (O'clock) 1 -Maximum Distance (cm) 5.3 -Circular Undermining No -Wound/Ulcer Outcome Not Healed -Ulcer Cleansing Rinsed/ Irrigated with Saline -Foul Odor after Cleansing No -Bioengineered Tissue No -Bleeding Controlled with Pressure -Treatment Response Procedure Tolerated Well -Offloading No -Pressure Reduction Wheelchair cushion -Debridement - Subq, 1st 20sq cm -Debridement - Muscle / Fascia, 1st Yes 20sq cm Pain Scale: 0-10 Numeric Is Patient Pain Free? Yes WC - Nurse 3 - General Ulcer D/C NN Start: 10/30/22 07:59 Freq: Status: Active Protocol: Activity Type Activity Date Activity User E-sign Co-sign Detail Recorded Client Recorded Date Recorded By Document 10/30/22 08:50 [facility] [id number] 10/30/22 08:50 [facility] Document 11/06/22 08:44 [facility] [id number] 11/06/22 08:44 [facility] Document 11/13/22 09:11 RB [id number] 11/13/22 09:11 RB Document 11/21/22 16:49 JF [id number] 11/21/22 16:50 JF 10/30/22 11/06/22 11/13/22 08:50 08:44 09:11 Wound Care Center Nurse 3 #1- sacral -Ulcer Cleansing Rinsed/ Rinsed/ Wound Cleanser Irrigated with Irrigated with Saline Saline -Foul Odor after Cleansing No No -Negative Pressure Wound Therapy Continue Continue Continue -Setting (mmHg) 200 200 200 -Negative Pressure is Continuous Continuous Continuous -Other Dressing white foam to tunnel -NPWT Application Charge NPWT & NPWT & NPWT & Debridement (nc Debridement (nc Debridement (nc ) ) ) Neda-Wound Care Barrier Treatment Response Procedure Procedure Procedure Tolerated Well Tolerated Well Tolerated Well Pain Scale: 0-10 Numeric Is Patient Pain Free? Yes Yes Yes WC - Visit Discharge Discharge Condition Stable Stable Stable Ambulatory Status Wheelchair Wheelchair Wheelchair Transportation Private Auto Private Auto Private Auto Accompanied by husb Medication Reconcilliation completed & No provided to patient/care provider Clinical Summary of Care Provided Yes Facility Type Orders Sent 11/21/22 16:49 Wound Care Center Nurse 3 #1- sacral -Ulcer Cleansing Rinsed/ Irrigated with Saline -Foul Odor after Cleansing No -Negative Pressure Wound Therapy Continue -Setting (mmHg) 200 -Negative Pressure is Continuous -Other Dressing -NPWT Application Charge NPWT & Debridement (nc ) Neda-Wound Care Treatment Response Procedure Tolerated Well Pain Scale: 0-10 Numeric Is Patient Pain Free? Yes WC - Visit Discharge Discharge Condition Stable Ambulatory Status Transportation Private Auto Accompanied by Medication Reconcilliation completed & provided to patient/care provider Clinical Summary of Care Provided Facility Type Home Health Orders Sent Yes Assessment/Plan Assessment/Plan (1) Sacral decubitus ulcer, stage IV: CODE(S): L89.154 - Pressure ulcer of sacral region, stage 4 (2) Osteomyelitis: CODE(S): M86.9 - Osteomyelitis, unspecified (3) Immobility syndrome (paraplegic): CODE(S): M62.3 - Immobility syndrome (paraplegic) (4) Multiple sclerosis: CODE(S): G35 - Multiple sclerosis (5) Long-term current use of rituximab: CODE(S): Z79.620 - 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 Patient is agreeable to an operative debridement. A partial ostectomy for osteomyelitis will be done as well. The wound care with the VAC should be easier because it would be done under direct vision. She will need another wound culture prior to any future surgery. A positive culture will necessitate antibiotic therapy. If osteomyelitis is seen on the Pathology, then we should get approval for HBO treatments. I would do the HBO after the debridement and before any wound closure with a muscle flap. And would do HBO treatments after the flap surgery. Since she would be on bedrest for 6 weeks, would have to have her admitted to an LTAC for the HBO treatments. Also before any muscle flap surgery, her nutrition would need to be maximized. Encourage nutritional supplementation with protein to help the healing process. Patient was informed of the risks and complications of the procedure including alternatives to surgery. These were discussed with the patient personally. Patient voices understanding and wishes to proceed. Follow-up 2 weeks.?
== END 2022-11-22 23:59 | disposition home or self-care (01) ==
LOC: WC 15:45
PROVIDERS: PCP Family Medicine; Referring Provider Nurse Practitioner; Visit Provider Nurse Practitioner
DX: L89.154 Pressure ulcer of sacral region, stage 4 (principal); G35 Multiple sclerosis; M86.9 Osteomyelitis, unspecified; R19.7 Diarrhea, unspecified; Z86.16 Personal history of COVID-19; M62.3 Immobility syndrome (paraplegic); Z87.891 Personal history of nicotine dependence; Z79.620 Long term (current) use of immunosuppressive biologic
CPT/HCPCS: 11042; 11043; 36415; 80053; 82607; 83690; 83735; 84134; 85025; 87070; 87075; 87077; 87205

== ENCOUNTER 2022-12-05 14:58 | Outpatient (RCR) | payer MEDICARE, BC, SELFPAY ==
[2022-11-23 00:45] VITALS: BP 117/58; PULSE 83; RESP 16; TEMP 36.5; BMI 22.8
[2022-12-05 15:04] VITALS: BP 113/55; PULSE 89; TEMP 36.3; BMI 22.8
--- NOTE | 2022-12-06 12:40 | PCM.WC.PN ---
History of Present Illness Date of Service: 12/05/22 Chief Complaint: Sacral pressure sore, Stage IV. History of Wound: 47-year-old woman presented to the [facility] with a sacral pressure sore, Stage IV, and associated osteomyelitis. 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 During this time she was also diagnosed with MS. She developed a sacral pressure sore that was excised and debrided in the operating room in [facility] in October,. Cultures (soft tissue and bone) showed Peptostreptococcus, Bacteroides, and E. coli. She was treated with IV Ertapenem for the osteomyelitis. 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 On 06/26/22, patient had a wound culture. It showed Staphylococcus aureus and Corynebacterium striatum. She was treated with Augmentin and has finished them. On 11/07/22, a wound culture was done and showed Gram positive zarina suggestive of Diphtheroids and generally not treated. Prealbumin was 20.1 on 10/30/22. Encourage nutritional supplementation with protein to help the healing process. An MRI scan Pelvis was done on 08/21/22. It showed 2.8 cm decubitus ulcer at the base of the coccyx without discrete evidence of osteomyelitis. At her last visit on 11/21/22 and recommended excision of the sacral pressure sore and partial ostectomy for osteomyelitis. She wanted to think about it and has decided to proceed with the surgery. It is scheduled for 12/18/22. Postoperatively will have her evaluated for HBO depending on the Pathology report. Progress of Wound: Unchanged. She is having surgery on 12/18/22. Objective Data Objective Data Vital Signs: Vital Signs Temp Pulse Resp BP O2 Del Method 97.3 F L 89 16 113/55 L Airvo 12/05/22 15:04 12/05/22 15:04 11/23/22 00:45 12/05/22 15:04 12/05/22 15:04 Oxygen Delivery Method Airvo Weight: 145 lb 9.6 oz Body Mass Index (BMI) 22.8 Prealbumin from 10/30/22 was 20.1. Encourage nutritional supplementation with protein to help the healing process. Lab / Micro Data Attestation: I reviewed the patient's lab results. Micro: Microbiolog Charges/Coding Procedures Integumentary 111xxx-113xx: [id number] Tran musc/fascia 20 sq cm/< (ICD-10 - L89.154, M86.9, M62.3, G35, Z79.620, Z87.891) Debridement Note Debridement Note Wound debrided: #1 Sacral area. Laterality: Not Applicable Wound Grade/Stage: Stage IV Type of Debridement: Excisional debridement Anesthesia Used: 5% Lidocaine Gel Depth: Down to and including healthy tissue, in the subcutaneous layer, to muscle and to bone (bone is palpable but not debrided.) Percentage of wound debrided: 100 Instrument Used: 3mm curette Tissue Removed: subcutaneous tissue and muscle. Severity: Fat Layer Exposed (muscle is exposed. bone is palpable but not debrided.) Amount of bleeding with debridement: Mild Bleeding Controlled with: Pressure and Compression and gauze Patient tolerated procedure: Patient tolerated procedure well Post-Debridement Measurements and Additional Note: Post-Debridement Measurements/Treatment - Nurse 1 - General Ulcer Assessment Start: 12/05/22 15:04 Freq: Status: Active Protocol: DEBBI.SHAR Activity Type Activity Date Activity User E-sign Co-sign Detail Recorded Client Recorded Date Recorded By Document 12/05/22 15:04 KW [id number] 12/05/22 15:16 KW 12/05/22 15:04 - Today's Visit Information Type of service 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 ) Arrival Mode Wheelchair Transfer Assistance Transfer Board Patient Identification Verified (Name & Yes ) Patient Requires Transmission-Based No Precautions Height and Weight Body Mass Index (BMI) 22.8 BMI Classification Normal Vital Signs Temperature (97.8 F-99.1 F) 97.3 F L Temperature Source Temporal Pulse Rate (60-100) 89 Pulse Location Monitor Respiratory rate source Observation Oxygen Delivery Method Airvo Blood Pressure (90/60-120/80) 113/55 L Blood Pressure Mean (mm Hg) 74 Source Monitor Position Sitting Blood Pressure Location Left Arm History Since Last Visit- (Skip if this is Patient's initial visit) Have you changed medications since your No last visit? Any new allergies or adverse reactions No Had a fall/change in ADL's that may No increase risk of falls Signs or symptoms of abuse and/or No neglect since last visit Have you been in the hospital since your No last visit? Has dressing in place as prescribed Yes Has compression in place as prescribed N/A Has offloadiing in place as prescribed N/A Left Footwear Regular Shoe Right Footwear Regular Shoe Pain Scale: 0-10 Numeric Is Patient Pain Free? Yes WC - Nurse 1 - General Ulcer Measurement Start: 12/05/22 15:04 Freq: Status: Active Protocol: Activity Type Activity Date Activity User E-sign Co-sign Detail Recorded Client Recorded Date Recorded By Document 12/05/22 15:04 KW [id number] 12/05/22 15:16 KW 12/05/22 15:04 Wound Center Nurse 1 #1- sacral -Combined with other wound No -Current Size (cm) - Length 1.6 -Current Size (cm) - Width 0.6 -Current Size (cm) - Depth 3.6 -Total Square Cm 0.96 -Date of Last Picture (Recall this 12/05/22 field) -Photo Taken Yes -Tunneling Yes -Tunneling Position (O'clock) 12 -Tunneling Distance (cm) 3 -Exudate Amt Small -Wound Margin Distinct, Outline Attached -Texture (Neda-wound Skin Appearance) Assessed -Moisture (Neda-wound Skin Appearance) Assessed -Color (Neda-wound Skin Appearance) Assessed -Temperature (Neda-wound Skin No Abnormality Appearance) (Pt Warm) -Ulcer Cleansing Rinsed/ Irrigated with Saline -Foul Odor after Cleansing No Lower Limb Edema Present NA - Nurse 2 - General Ulcer CM Notes Start: 12/05/22 15:04 Freq: Status: Active Protocol: Activity Type Activity Date Activity User E-sign Co-sign Detail Recorded Client Recorded Date Recorded By Document 12/05/22 15:26 JF [id number] 12/05/22 15:31 JF Edit Result 12/05/22 15:26 JF (1) [id number] 12/05/22 15:32 JF (1) #1- sacral - Tunneling No => Yes - Tunneling Position (O'clock) => 12 - Tunneling Distance (cm) => 5.6 12/05/22 15:26 Wound Center Nurse 2 #1- sacral -Time 15:27 -Correct Patient Yes -Correct Side, Site, Position Yes -Correct Procedure Yes -Procedure Performed Yes -Type of Procedure Debridement -Clinical Debridement Muscle / Fascia -Tissue Removed Muscle,Fascia -Post Debridement (cm) - Length 0.9 -Post Debridement (cm) - Width 0.2 -Post Debridement (cm) - Depth 2.8 -Total Square (Post) (cm) 0.18 -Area of Debridement (cm) - Length 0.9 -Area of Debridement (cm) - Width 0.2 -Total Square (Area) (cm) 0.18 -Tunneling Yes -Tunneling Position (O'clock) 12 -Tunneling Distance (cm) 5.6 -Undermining/Tunneling No -Circular Undermining No -Wound/Ulcer Outcome Not Healed -Ulcer Cleansing Rinsed/ Irrigated with Saline -Foul Odor after Cleansing No -Bioengineered Tissue No -Bleeding Controlled with Pressure -Treatment Response Procedure Tolerated Well -Offloading No -Pressure Reduction Wheelchair cushion -Debridement - Muscle / Fascia, 1st Yes 20sq cm Pain Scale: 0-10 Numeric Is Patient Pain Free? Yes Assessment/Plan Assessment/Plan (1) Sacral decubitus ulcer, stage IV: CODE(S): L89.154 - Pressure ulcer of sacral region, stage 4 (2) Osteomyelitis: CODE(S): M86.9 - Osteomyelitis, unspecified (3) Immobility syndrome (paraplegic): CODE(S): M62.3 - Immobility syndrome (paraplegic) (4) Multiple sclerosis: CODE(S): G35 - Multiple sclerosis (5) Long-term current use of rituximab: CODE(S): Z79.620 - half-way (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 Patient is having surgery on 12/18/22 where she will have excision sacral pressure sore, IV, partial ostectomy for osteomyelitis. Soft tissue and bone will both be sent to Pathology for analysis to rule out carcinoma and to evaluate for osteomyelitis The wound care with the VAC should be easier because it would be done under direct vision. She had a wound culture done on 11/07/22. It showed Gram positive zarina, suggestive of Diphtheroids, and generally not treated. If osteomyelitis is seen on the Pathology, then we should get approval for HBO treatments. I would do the HBO after the debridement and before any wound closure with a muscle flap. And would do HBO treatments after the flap surgery. Since she would be on bedrest for 6 weeks, would have to have her admitted to an LTAC for the HBO treatments. Also before any muscle flap surgery, her nutrition would need to be maximized. On 10/30/22, it was 20.1. Encourage nutritional supplementation with protein to help the healing process. Patient was informed of the risks and complications of the procedure including alternatives to surgery. These were discussed with the patient personally. Patient voices understanding and wishes to proceed. Follow-up 4 weeks, which will be after her surgery on 12/18/22.?
== END 2022-12-23 23:59 | disposition home or self-care (01) ==
LOC: WC 14:58
PROVIDERS: PCP Family Medicine; Referring Provider Nurse Practitioner; Visit Provider Surgery
DX: L89.154 Pressure ulcer of sacral region, stage 4 (principal); G35 Multiple sclerosis; M86.9 Osteomyelitis, unspecified; Z87.891 Personal history of nicotine dependence; Z79.620 Long term (current) use of immunosuppressive biologic; M62.3 Immobility syndrome (paraplegic); Z86.16 Personal history of COVID-19
CPT/HCPCS: 11043

== ENCOUNTER 2022-12-18 12:52 | Observation (INO) | payer BC, SELFPAY ==
[2022-12-18] VITALS (10 sets, daily range): BP systolic 97–117; BP diastolic 58–79; PULSE 66–84; RESP 16–18; TEMP 36.4–37.2; O2SAT 97–100; BMI 23.0; BMI 24.8
--- NOTE | 2022-12-18 08:48 | SDCEKG_ITS ---
Test Reason : PRE-OP Blood Pressure : / mmHG Vent. Rate : 073 BPM Atrial Rate : 073 BPM P-R Int : 126 ms QRS Dur : 086 ms QT Int : 392 ms P-R-T Axes : 057 069 057 degrees QTc Int : 431 ms Normal sinus rhythm Nonspecific ST abnormality Abnormal ECG No previous ECGs available Confirmed by EVANGELINA PARDO, GURU ([id number]), subeditor DYLAN HENDRICKSON ([id number]) on 12/20/2022 9:29:12 AM Referred By: Aaron Gregory Confirmed By:GURU HUTCHINSON MD
[2022-12-18] MEDS: Lactated Ringers 1,000 ML 15 ML IV ×2 (08:54→13:01)
--- NOTE | 2022-12-18 09:45 | BON_PTH ---
PATIENT: PHUC REED LOC: MS3 U#:[id number] AGE/SX: 47/F ROOM: [facility] [place] RE12/18/[address]: Dr. Aaron Gregory MD : 1975 BED: 1 DIS: 12/19/2022 SPEC #: [id number] RECD: 12/18/22 14:18 STATUS: ESTEBAN MICHAEL #: [id number] CATALINA: 12/18/22 09:[address]: Aaron Gregory DEPT: SURGICAL PATHOLOGY RECD BY: Rafaela Tiwari ENTERED: 12/19/22 10:44 SP TYPE: Bone OTHR DR: Dr. Tyler Jose MD Tissues: A - Sacral region B - Sacral region Procedures: Decalcification bone/plaque Surgery Specimen Level IV HEADER OPERATION: Excision sacral pressure sore stage 4 with partial ostectomy PRE-OP DIAGNOSIS: Osteomyelitis, stage 4 sacral decubitus, paraplegic TISSUE SUBMITTED: A - Sacral pressure sore tissue, B - Sacral bone MICROSCOPIC DIAGNOSIS A. Skin and tissue of sacral region, excision: Ulceration with associated acute and chronic inflammation. Hyperkeratosis. B. Sacral bone, biopsy: Chronic reparative and reactive change. No evidence of acute osteomyelitis. AM:leny 12/23/2022 MICROSCOPIC DESCRIPTION Slides are reviewed. GROSS DESCRIPTION A - Received in fixative is one container labeled with the patient's name and designated sacral pressure sore tissue. The specimen consists of multiple irregular fragments of skin with underlying tissue that in aggregate measure 8.0 x 5.0 x 3.0 cm. No lesion is identified. Circuit Rider sections are submitted in three cassettes. B - Received in fixative is one container labeled with the patient's name and designated sacral bone. The specimen consists of multiple pieces of bone that in aggregate measure 2.5 x 2.5 x 0.4 cm. The specimen is totally submitted in one cassette after decalcification. / SJ:leny 12/19/2022 TC:2 CPT: 99373 x2, 30820
--- NOTE | 2022-12-18 10:15 | PCM.HP.BLA ---
History and Physical Date of Admission: 12/18/22 HISTORY OF PRESENT ILLNESS 47 year-old woman who presented to the Wound Center with a sacral pressure sore, Stage IV, and associated osteomyelitis. 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 During this time she was also diagnosed with MS. She developed a sacral pressure sore that was excised and debrided in the operating room in [place] at [facility] in October,. Cultures (soft tissue and bone) showed Peptostreptococcus, Bacteroides, and E. coli. She was treated with IV Ertapenem for the osteomyelitis. 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 At her Wound Center visit last week, 06/26/22, she had a wound culture. It showed Staphylococcus aureus and Corynebacterium striatum. Will start her on Augmentin. She had labs done at last visit as well. Hgb was 12.6. Potassium was 3.5. BUN/Creat was 11/0.50. Prealbumin was 15.3. On 11/07/22, a wound culture was done and showed Gram positive zarina suggestive of Diphtheroids and generally not treated. Prealbumin was 20.1 on 10/30/22. Encourage nutritional supplementation with protein to help the healing process. An MRI scan Pelvis was done on 08/21/22. It showed 2.8 cm decubitus ulcer at the base of the coccyx without discrete evidence of osteomyelitis. At her last visit on 11/21/22 and recommended excision of the sacral pressure sore and partial ostectomy for osteomyelitis. She wanted to think about it and has decided to proceed with the surgery. It is scheduled for 12/18/22. Postoperatively will have her evaluated for HBO depending on the Pathology report. PAST MEDICAL HISTORY Former smoker Immobility syndrome (paraplegic) Long-term current use of rituximab Multiple sclerosis Osteomyelitis Sacral decubitus ulcer, stage IV MEDICATIONS baclofen gabapentin(Neurontin) multivitamin oxybutynin chloride ALLERGIES Doxycycline SOCIAL HISTORY Smoking Status: Former smoker REVIEW OF SYSTEMS General - Denies fever, fatigue, and weight loss. Eyes - Denies cataracts and glaucoma. ENT - Denies nasal congestion and sore throat. Endocrine - Denies excessive thirst and urination. Skin - Denies suspicious lesions and skin cancer. Has sacral pressure sore, Stage IV. Musculoskeletal - Denies joint pain, joint stiffness, weakness of muscles and joints, back pain, and arthritis. Has osteomyelitis. Has multiple sclerosis. Neuro - Denies headaches. Has paralysis from hemorrhagic myelitis. Cardiovascular - Denies chest pain, fatigue, and shortness of breath with exertion. Psych - Denies anxiety and depression. Respiratory - Denies chronic cough and shortness of breath. Gastrointestinal - Denies nausea, vomiting, diarrhea, and constipation. Hematologic - Denies abnormal bruising and bleeding. Genitourinary - Denies hematuria and urinary frequency. PHYSICAL EXAMINATION General - Alert and Oriented. HEENT - PERRL. EOMI. Throat is clear. Neck - Supple and nontender. Lungs - Clear to auscultation. Heart - Regular rate and rhythm. Abdomen - Soft and nondistended. Lower Back and Sacrum - Sacral pressure sore, Stage IV. Extends to the bone. Some undermining superiorly. Has previous diagnosis of osteomyelitis. Measures 1.5 x 1 cm. Depth of 6 cm. Superior undermining of 5 cm. Extremities - No clubbing or cyanosis. Neuro - CN II-XII grossly intact. Paralyzed from waist down from hemorrhagic myelitis. Psych - Normal mood and affect. 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 Labs and cultures reviewed. CT Pelvis is pending. Patient has a sacral pressure sore that is stable. Good granulation tissue seen. Some undermining noted superiorly. It extends down to the bone, making it a Stage IV. Continue the VAC at present. She has had osteomyelitis diagnosed last Summer. She had a surgical debridement along with IV antibiotics (Ertapenem) and wound care with the VAC. If the CT that is pending shows evidence of persistent osteomyelitis, then can be evaluated for HBO for chronic refractory osteomyelitis. Would start with 40-60 treatments. If surgical excision of the pressure sore is needed in the future, then can consider additional 40-60 HBO treatments after the surgery. Wound culture was done last week on 06/26/22. It showed Staphylococcus aureus and Corynebacterium striatum. Will start her on Augmentin. Prealbumin from last week on 06/26/22 was 15.3. Encourage nutritional supplementation with protein to help the healing process. She wants to try and heal this pressure sore without a flap if possible. Myocutaneous flap reconstruction would necessitate bedrest for 6 weeks. She understands that surgery for closure with a myocutaneous flap may be necessary in the future. If stool contamination becomes an issue in the future, then would need a diverting colostomy. She voices understanding. Right now she has a good bowel regimen usually with digital stim with no diarrhea. She has a special cushion for her wheelchair and a specialty bed at home to help minimize pressure. She does have good upper body strength and can do pressure releases every 10 minutes for 10 seconds. She has decided to proceed with the surgery for excision of sacral pressure sore and partial ostectomy for osteomyelitis. Patient was informed of the risks and complications of the procedure including alternatives to surgery. These were discussed with the patient personally. Patient voices understanding and wishes to proceed. Potential risks and complications included but not inclusive of bleeding, infection, hematoma, bruising, swelling, wound breakdown, need for wound care, poor scarring, poor aesthetic outcome, intra operative cardiac or neurologic events, DVT, PE, and reaction to anesthesia.
[2022-12-18] MEDS: metroNIDAZOLE 500 MG/100 ML BAG 100 MG IV (10:38)
[2022-12-18] MEDS: Lidocaine 1% /Epi 1:100 (20ml) 20 ML Vial (11:08)
--- NOTE | 2022-12-18 12:50 | OP.PCM_ITS ---
Problems Associated Problem List Diagnoses (1) Sacral decubitus ulcer, stage IV: (2) Osteomyelitis: (3) Long-term current use of rituximab: (4) Immobility syndrome (paraplegic): (5) Multiple sclerosis: (6) Former smoker: Report of Operation Date of Procedure: 12/18/22 Pre-Operative Diagnosis: 1. Sacral pressure sure, stage IV. 2. Osteomyelitis. 3. Multiple sclerosis. 4. Long-term current use of rituximab. 5. Immobility syndrome (paraplegic). 6. Former smoker. Post-Operative Diagnosis: Same. Surgery/Procedure Performed:: Excision sacral pressure sore, Stage IV, with partial ostectomy for osteomyelitis. Description of Surgical Findings:: 47 year-old woman who presented to the Wound Center with a sacral pressure sore, Stage IV, and associated osteomyelitis. 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 During this time she was also diagnosed with MS. She developed a sacral pressure sore that was excised and debrided in the operating room in [facility] in October,. Cultures (soft tissue and bone) showed Peptostreptococcus, Bacteroides, and E. coli. She was treated with IV Ertapenem for the osteomyelitis. 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 At her Wound Center visit last week, 06/26/22, she had a wound culture. It showed Staphylococcus aureus and Corynebacterium striatum. Will start her on Augmentin. She had labs done at last visit as well. Hgb was 12.6. Potassium was 3.5. BUN/Creat was 11/0.50. Prealbumin was 15.3. On 11/07/22, a wound culture was done and showed Gram positive zarina suggestive of Diphtheroids and generally not treated. Prealbumin was 20.1 on 10/30/22. Encourage nutritional supplementation with protein to help the healing process. An MRI scan Pelvis was done on 08/21/22. It showed 2.8 cm decubitus ulcer at the base of the coccyx without discrete evidence of osteomyelitis. At her last visit on 11/21/22 and recommended excision of the sacral pressure sore and partial ostectomy for osteomyelitis. She wanted to think about it and has decided to proceed with the surgery. It is scheduled for 12/18/22. Postoperatively will have her evaluated for HBO depending on the Pathology report. Patient was informed of the risks and complications of the procedure including alternatives to surgery. These were discussed with the patient personally. Patient voices understanding and wishes to proceed. Potential risks and complications included but not inclusive of bleeding, infection, hematoma, bruising, swelling, wound breakdown, need for wound care, poor scarring, poor aesthetic outcome, intra operative cardiac or neurologic events, DVT, PE, and reaction to anesthesia. Size of sacral wound - 7 x 4.5 x 4.5 cm. Surgeon: Aaron Gregory MD associate field service engineer: None Type of Anesthesia: Local MAC (xylocaine with epinephrine and IV sedation.) Anesthesiologist: Gregory Corrales MD and Mary Monge CRNA and MIGDALIA Martin. Specimen's removed: 1. Sacral pressure sore soft tissue to Pathology and Microbiology. 2. Sacral pressure sore bone to Pathology and Microbiology. Drains: None. Estimated Blood Loss (mL): 150. Description of Procedure: Patient was taken to OR in supine position and was given IV sedation. She was then placed in the prone position. The sacral area was prepped and draped in the usual fashion. SCD's were placed for DVT prophylaxis. Perioperative antibiotics were given intravenously. The sacral pressure sore was infiltrated with xylocaine and epinephrine. After waiting 5 minutes for the anesthetic to take effect, I proceeded with excision of the sacral pressure sore. There was a small skin opening but superiorly there was undermining that needed to be opened up in order to make the VAC work better because it would be placed under direct vision so the whole wound would be in contact with the VAC foam and not have areas that were left unattended. Those areas would be a setup for fluid retention and subsequent infection. In fact there was a portion of the sacral pressure sore superiorly that had hypertrophic granulation tissue from not being properly debrided because it couldn't be seen and therefore the VAC sponge could not reach it. The abnormal bursal scar tissue besides tracking superiorly, it also tracked down to the sacral bone. Using rongeurs, I proceeded with a part ial ostectomy for osteomyelitis. I took several pieces of bone from the sacrum to get a labor relations representative sampling for evaluation for osteomyelitis. A rasp was used to smooth out the bony edges. The soft tissue and bone from the pressure sore was split up to go to Pathology for analysis to rule out carcinoma and to evaluate for osteomyelitis and to go to Microbiology for culture. A positive culture will necessitate antibiotic therapy. The wound was irrigated with saline. Hemostasis was obtained with electrocautery. Bone wax was also used to help with hemostasis in the bone. The size of the wound after excision of the sacral pressure sore and partial ostectomy for osteomyelitis was 7 x 4.5 x 4.5 cm or 31.5 cm2. The wound was then dressed with Mepitel nonadherent dressing followed by Kerlix gauze and Betadine. This was followed with dry Kerlix gauze and ABD pads with Medipore tape as a compression dressing. Patient tolerated the procedure well and was sent to PACU in satisfactory condition. Patient will be sent upstairs for continued postop care. The VAC will be placed tomorrow. Grafts/Implants Used: None. Procedure Start Time: 11:09 Procedure Stop Time: 12:47 Complications None. Admit VTE Documentation VTE Present on Admission: No VTE Mechan Device Prophylaxis: SCD's VTE Pharm Prophylaxis ordered?: No Addendum Addendum: Surgery Charges CPT - 05752 ICD-10 - L89.154, M86.9, G35, Z79.620, M62.3, Z87.891
[2022-12-18] MEDS: Gabapentin 300 MG Capsule PO ×2 (15:03→21:51)
[2022-12-18] MEDS: Juven (unflavored) Packet 1 PACKET PO (19:06)
[2022-12-18] MEDS: Docusate Sodium 100 MG Capsule PO (21:51)
[2022-12-18] MEDS: Baclofen 10 MG Tablet 20 MG PO (21:51)
[2022-12-18] MEDS: Mirabegron 25 MG TAB.ER.24H PO (21:51)
[2022-12-18] MEDS: metroNIDAZOLE 100 ML 100 MG IV (21:52)
[2022-12-18] MEDS: Tolterodine Tartrate 2 MG CAP.SA PO (21:52)
[2022-12-19] MEDS: Gabapentin 300 MG Capsule PO ×2 (06:02→14:47)
[2022-12-19 06:07] VITALS: BP 98/48; PULSE 71; RESP 16; TEMP 37.1; O2SAT 99
[2022-12-19] MEDS: metroNIDAZOLE 100 ML 100 MG IV (06:52)
[2022-12-19] MEDS: Juven (unflavored) Packet 1 PACKET PO (08:29)
[2022-12-19] MEDS: Multivitamins,Therapeutic Tablet 1 TABLET PO (08:29)
[2022-12-19] MEDS: Baclofen 10 MG Tablet 20 MG PO (10:54)
--- NOTE | 2022-12-19 10:55 | WOUNDNOTE ---
wound photo: sacrum
[2022-12-19] MEDS: Enoxaparin 40 MG/0.4 ML Syringe SC (11:01)
[2022-12-19 12:07] VITALS: BP 100/58; PULSE 93; RESP 17; TEMP 36.6; O2SAT 99
[2022-12-19] MEDS: Amox/Clavulanate 875 MG Tablet PO (12:24)
--- NOTE | 2022-12-19 13:50 | DCINST_ITS ---
Discharge Instructions Diet Discharge Diet: No restrictions (Increased protein intake) Activity Discharge Activity: Return to Normal Activity May resume sexual activity in: 10-14 days Additional Activity Instructions:: Avoid sitting for long periods of time. Make sure to frequently off load. Dressing / Incision Call your doctor if your incision/area has: Continuous Slow Oozing, Sudden Increased Bleeding, Increased Pain/ Swelling, Increased Redness, Foul Smelling Discharge and Swelling at the incision site Call your doctor if you observe: Fever of 101 or Higher, Inability to have a bowel movement, Shortness of breath, Chest pain, Calf discomfort and Uncontrolled pain Change Dressing in: 2 days Cleanse incision/area with: Soap & Water Additional Dressing/Incision Instructions:: Wound VAC dressing to be changed 3 times per week with suction at 150 mmHg. Wash wound with soap and water at the time of dressing change. Follow Up Care Please Follow Up With: Aaron Gregory MD When: Wound healing center Friday, December 30, 2022. Please call sooner if you develop any concerns. Test Results: Test results from this visit will be discussed in further detail at your follow- up appointment, if applicable. Discharge Plan Admission Admit Date/Time: 12/18/22 12:52 Attending Provider: Aaron Gregory Primary Care Provider: Tyler Jose Discharge Orders/Prescriptions Prescriptions: New metronidazole 500 mg Tablet 500 mg PO TID 10 Days Qty: 30 0RF amoxicillin-pot clavulanate 875-125 mg Tablet 1 tab PO BID 14 Days Qty: 28 1RF ovxmy-jgyf-XsGQZ-kqtwel-lt-bta 7-7-1.5 gram Powder In Packet 1 packet PO BIDCM Qty: 0 0RF baclofen 10 mg tablet 20 mg PO Q6H PRN (Reason: muscle spasm) 15 Days Qty: 120 0RF Continued multivitamin Tablet 1 tab PO DAILY gabapentin [Neurontin] 300 mg Capsule 300 mg PO TID oxybutynin chloride 5 mg Tablet 10 mg PO QHS Myrbetriq 25 mg tablet extended release 24 hr 25 mg PO QHS Discontinued baclofen 10 mg Tablet 20 mg PO BID Referrals / Follow Up: Tyler Jose MD [Primary Care Provider] - Disposition Disposition (needs filled in before D/C Order can be placed): Home, Self Care
--- NOTE | 2022-12-19 14:07 | PCM.PN.SRG ---
Subjective Subjective Postop #1 Patient sitting up in bed. She states she has been having increased muscle spasms. Objective Data Objective Data Vital Signs: Vital Signs Temp Pulse Resp BP Pulse Ox O2 Del Method 98.8 F 71 16 98/48 L 99 Room Air 12/19/22 06:07 12/19/22 06:07 12/19/22 06:07 12/19/22 06:07 12/19/22 06:07 12/19/22 06:07 Oxygen Delivery Method Room Air Weight: 158 lb 9.6 oz Body Mass Index (BMI) 24.8 Intake & Output: Intake and Output for Last 24 Hours 12/17/22 12/18/22 12/19/22 23:59 23:59 23:59 Intake Total 1836 / 1836 1624 / 1624 Output Total 1350 / 1350 750 / 750 Balance 486 / 486 874 / 874 Lab / Micro Data Attestation: I reviewed the patient's lab results. Micro: Microbiology 12/18/22 11:14 Tissue - Sacral Pressure Sore Gram Stain - Final 12/18/22 11:14 Tissue - Sacral Pressure Sore Wound Culture - Preliminary Gram positive zarina 12/18/22 11:18 Bone - Sacral Bone Gram Stain - Final Physical Exam Const alert, oriented x3 and no apparent distress HEENT normocephalic Eyes General Eye: normal appearance of both eyes Resp normal air movement Effort and Inspection: able to speak in complete sentences Cardio regular rate and regular rhythm Extremity normal capillary refill Skin Wound Narrative: Sacral ulcer is stable. No active bleeding. Wound VAC placed today by wound nurse at 150 mm Hg. She is tolerating it well at this time. Neuro oriented x3 Sensorium / Orientation: awake and alert Psych mental status grossly normal, thought process normal and cooperative Assessment & Plan Assessment/Plan (1) Sacral decubitus ulcer, stage IV: (2) Osteomyelitis: (3) Immobility syndrome (paraplegic): (4) Multiple sclerosis: (5) Former smoker: (6) Long-term current use of rituximab: (7) Other acute postprocedural pain: PLAN: Plan Patient is doing well. She is having increased muscle spasms since surgery. Wound VAC placed at 150 mmHg. Will have her change this 3 times per week. Pathology pending. Prealbumin 20.1 today. Continue protein supplementation. Will send her home on Augmentin and Flagyl. She take Baclofen twice per day normally, will add that she can take every 6 hours as needed for muscle spasms. Prescribed Percocet (28 tabs) as needed for pain. PDMP reviewed. She has an appointment at the wound center on 12/30/22 for follow up. Instructed to call if she has any concerns before then.
[2022-12-19] MEDS: metroNIDAZOLE 500 MG Tablet PO (14:47)
--- NOTE | 2022-12-19 14:55 | CASEMGMT ---
KAREN MEDRANO Assessment: Face to Face with pt for initial transition planning/care coordination assessment. KAREN MEDRANO introduced self and role at [facility], pt voices understanding and consents to assessment. Pt is A/O x4 and answers all questions appropriately at this time. Pt sitting up in bed in no distress with at bedside and nurses in room. Care providers, pharmacy, and demographics verified/updated. Admitting Dx: excision pressure sore PCP:Rebeca Specialists:ADELIA Gregory; Brock Lopez for [place] Preferred Pharmacy: [facility] Retail Insurance: [place] Prescription Benefit: yes LNOK: Angel Lester, Living Arrangements: Pt lives with and 2 children in a single story home with a ramp to enter. Pt reports she is I in ADL's. She states she has been in a w/c for 2 years and has all equipment to live day to day. Pt denies concerns at home. Transportation: Pt drives self in an adapted vehicle with a ramp and hand controls, denies concerns with transportation. DME/HHC/SNF: Pt has slide boards, w/c x 2, [place] adjustable bed, shower chair and wound vac. Pt has had HHC in the past for infusions. She is unsure of the name of the agency that provided the care. Pt denies SNF stays. Pt states no concerns with going home at time of dc. Pt changes her own wound vac with mirrors. Spoke with who is agreeable for pt to continue this. Pt denies any concerns with this. She follows with the [facility] and has an appt on Dec 30 at 3pm. Pt states no further concerns/needs. CM to follow. Advised pt to ask CM if any further question/concerns/needs arise, voices understanding. Pt Goal: Home Plan: Home, follow with [facility] and completing own dressing changes.
--- NOTE | 2022-12-19 14:57 | PHA.DC_ITS ---
Pharmacy [facility] has performed discharge medication reconciliation and counseling for this patient. The patient was counseled on the following discharge medications and changes in medications for homegoing were reviewed. 1. AUGMENTIN 2. FLAGYL 3. PERCOCET The Reason for Use, instructions for use, and potential side effects were reviewed for all new medications. The patient's questions regarding all of their medications were answered. The patient was able to verbally demonstrate an understanding of their discharge medications. The patient's discharge medication list was reviewed for discrepancies and discrepancies were resolved. Patient counselled by Ryan De Leon PharmD Candidate Medications at Discharge Home Medications gabapentin 300 mg capsule (Neurontin) 300 mg PO TID 06/26/22 multivitamin 1 tab PO DAILY 06/26/22 oxybutynin chloride 5 mg tablet 10 mg PO QHS 06/26/22 mirabegron 25 mg tablet,extended release 24 hr (Myrbetriq) 25 mg PO QHS 12/11/22 amoxicillin 875 mg-potassium clavulanate 125 mg tablet 1 tab PO BID 14 days #28 tabs 12/19/22 arginine 7 gram-glutam 7 gram-CaHMB 1.5 rfec-cavwa-mo-min oral pwd pkt 1 packet PO BIDCM #0 ea 12/19/22 baclofen 10 mg tablet 20 mg (2 x 10 mg) PO Q6H PRN muscle spasm 15 days #120 tabs 12/19/22 metronidazole 500 mg tablet 500 mg PO TID 10 days #30 tabs 12/19/22 oxycodone-acetaminophen 5 mg-325 mg tablet (Percocet) 1 tab PO 4X/DAY PRN PRN pain (scale score 7-10) 7 days #28 tabs 12/19/22
[2022-12-19 15:23] VITALS: BP 105/62; PULSE 90; RESP 16; TEMP 36.6; O2SAT 97
== END 2022-12-19 15:25 | disposition home or self-care (01) ==
LOC: MS3 13:08 → SDC 13:09 → MS3 13:09
PROVIDERS: Admitting Provider Surgery; PCP Family Medicine; Referring Provider Surgery; Visit Provider Surgery
PROC: (CPT 15937; principal; 2022-12-18 09:30)
DX: L89.154 Pressure ulcer of sacral region, stage 4 (principal); G35 Multiple sclerosis; M46.28 Osteomyelitis of vertebra, sacral and sacrococcygeal region; Z87.891 Personal history of nicotine dependence; Z86.16 Personal history of COVID-19; Z79.899 Other long term (current) drug therapy; M62.3 Immobility syndrome (paraplegic); R94.31 Abnormal electrocardiogram [ECG] [EKG]; Z79.620 Long term (current) use of immunosuppressive biologic
CPT/HCPCS: 15937; 01120; 87070; 87075; 87077; 87102; 87205; 87206; 88305; 88311; 93005; 96365; 96366; 96367; 96372; 99221; J7120; G0378; J0295; J2405

== ENCOUNTER 2023-01-06 16:35 | Outpatient (CLI) | payer BC, SELFPAY ==
--- NOTE | 2023-01-06 16:45 | RAD_ITS ---
INDICATION: HYPERBARIC OXYGEN THERAPY EXAMINATION/TECHNIQUE: X-RAY - XR Chest 2 Views COMPARISON: No previous relevant examinations available for comparison.. FINDINGS: LIFE-SUPPORT AND LINES: 1. None HEART AND VESSELS: The cardiac silhouette, pulmonary vasculature have normal appearance. No evidence of congestive failure. LUNGS AND PLEURAL SPACES: Lungs are clear. No focal infiltrate, consolidation or effusions. No evidence of pneumothorax. No pulmonary mass is noted. MEDIASTINUM AND HILAR REGIONS: No masses adenopathy noted. No areas of calcification. Visualized upper airway is normal in position. BONY ELEMENTS: No acute bony changes noted. RAD/Chest PA and Lateral IMPRESSION: 1. No evidence of acute cardiopulmonary process Electronically Signed: Humberto Tolentino MD at 1:00 EDT ,
== END 2023-01-06 23:59 | disposition home or self-care (01) ==
LOC: RAD 16:37
PROVIDERS: PCP Family Medicine; Referring Provider Surgery; Visit Provider Surgery
DX: R05.9 Cough, unspecified (principal)
CPT/HCPCS: 71046

== ENCOUNTER 2023-01-20 15:15 | Outpatient (RCR) | payer MEDICARE, BC, SELFPAY ==
[2022-12-24 00:31] VITALS: BP 113/55; PULSE 89; RESP 16; TEMP 36.3; BMI 22.8
[2022-12-30 15:13] VITALS: BP 164/53; PULSE 100; RESP 16; TEMP 36.2; BMI 22.8
--- NOTE | 2022-12-30 16:33 | PN.PCM_ITS ---
History of Present Illness Date of Service: 12/30/22 Chief Complaint: Sacral pressure sore, Stage IV. History of Wound: Surgery 12/18/22 - Excision sacral pressure sore, Stage IV, with partial ostectomy for osteomyelitis. Wound care - VAC. Operative Culture - Corynebacterium striatum in the soft tissue and Kocuria kristinae in the bone. Was treated perioperatively with Augmentin and Flagyl for a preop culture positive for Enterococcus faecalis and Anaerobes. Pathology - Negative for acute osteomyelitis. Chronic reparative and reactive change. Prealbumin from 10/30/22 was 20.1. Encourage nutritional supplementation with protein to help the healing process. MRI Pelvis from 08/21/22 - 2.8 cm decubitus ulcer at the base of the coccyx without discrete evidence of osteomyelitis. Today she denies fever. Her appetite is good. Progress of Wound: Recent surgery on 12/18/22. Objective Data Objective Data Vital Signs: Vital Signs Temp Pulse Resp BP O2 Del Method 97.1 F L 100 16 164/53 H Room Air 12/30/22 15:13 12/30/22 15:13 12/30/22 15:13 12/30/22 15:13 12/30/22 15:13 Oxygen Delivery Method Room Air Weight: 145 lb 9.6 oz Body Mass Index (BMI) 22.8 Intake & Output: Intake and Output for Last 24 Hours 12/17/22 12/18/22 12/19/22 23:59 23:59 23:59 Intake Total 1836 / 1836 1624 / 1624 Output Total 1350 / 1350 750 / 750 Balance 486 / 486 874 / 874 Prealbumin from 10/30/22 was 20.1. Encourage nutritional supplementation with protein to help the healing process. Lab / Micro Data Attestation: I reviewed the patient's lab results. Micro: Microbiology 12/18/22 11:14 Tissue - Sacral Pressure Sore Gram Stain - Final 12/18/22 11:14 Tissue - Sacral Pressure Sore Wound Culture - Preliminary Gram positive zarina 12/18/22 11:18 Bone - Sacral Bone Gram Stain - Final Charges/Coding Procedures Integumentary [id number]: [id number] Global Visit (ICD-10 - L89.154, M86.9, M62.3, G35, Z79.620, Z87.891) Debridement Note Debridement Note Wound debrided: #1 Sacral area. Laterality: Not Applicable Wound Grade/Stage: IV. No debridement was completed: No debridement was completed today (She had recent surgery on 12/18/22.) Post-Debridement Measurements and Additional Note: Post-Debridement Measurements/Treatment - Nurse 1 - General Ulcer Assessment Start: 12/30/22 15:11 Freq: Status: Active Protocol: BENIGNO Activity Type Activity Date Activity User E-sign Co-sign Detail Recorded Client Recorded Date Recorded By Document 12/30/22 15:13 [facility] [id number] 12/30/22 15:26 [facility] 12/30/22 15:13 WC - Today's Visit Information Type of service Follow-up Visit (Physician/DRILL HAND ) Arrival Mode Wheelchair Transfer Assistance Other Transfer Assist (Other) ASSISTS W/ SLIDE Accompanied by Patient Identification Verified (Name & Yes ) Patient Requires Transmission-Based No Precautions Height and Weight Body Mass Index (BMI) 22.8 BMI Classification Normal Vital Signs Temperature (97.8 F-99.1 F) 97.1 F L Temperature Source Temporal Pulse Rate (60-100) 100 Pulse Location Monitor Respiratory Rate (12-18) 16 Respiratory rate source Observation Oxygen Delivery Method Room Air Blood Pressure (90/60-120/80) 164/53 H Blood Pressure Mean (mm Hg) 90 Source Monitor Position Sitting Blood Pressure Location Right Arm History Since Last Visit- (Skip if this is Patient's initial visit) Have you changed medications since your No last visit? Any new allergies or adverse reactions No Had a fall/change in ADL's that may No increase risk of falls Signs or symptoms of abuse and/or No neglect since last visit Have you been in the hospital since your Yes last visit? Left Footwear Regular Shoe Right Footwear Regular Shoe Pain Scale: 0-10 Numeric Is Patient Pain Free? Yes - Nurse 1 - General Ulcer Measurement Start: 12/30/22 15:11 Freq: Status: Active Protocol: Activity Type Activity Date Activity User E-sign Co-sign Detail Recorded Client Recorded Date Recorded By Document 12/30/22 15:13 [facility] [id number] 12/30/22 15:26 [facility] 12/30/22 15:13 Wound Center Nurse 1 #1- sacral -Combined with other wound No -Current Size (cm) - Length 8.2 -Current Size (cm) - Width 0.8 -Current Size (cm) - Depth 7 -Total Square Cm 6.56 -Date of Last Picture (Recall this 12/30/22 field) -Photo Taken Yes -Epithelialization None Present -Tunneling No -Undermining/Tunneling No -Circular Undermining No -Exudate Amt Large -Exudate Type Serosanguineous -Wound Margin Distinct, Outline Attached -Granulation Amt Small (1-33%) -Granulation Quality Red -Slough/Fibrin Yes -Necrosis Amt Large (67-100%) -Necrotic Tissue Type Adherent Slough -Texture (Neda-wound Skin Appearance) Assessed, Scarring -Moisture (Neda-wound Skin Appearance) Assessed -Color (Neda-wound Skin Appearance) Assessed -Temperature (Neda-wound Skin No Abnormality Appearance) (Pt Warm) -Tenderness on Palpation (Neda-wound No Skin Appearance) -Ulcer Cleansing Soap and Water -Foul Odor after Cleansing No WC - Nurse 2 - General Ulcer CM Notes Start: 12/30/22 15:11 Freq: Status: Active Protocol: Activity Type Activity Date Activity User E-sign Co-sign Detail Recorded Client Recorded Date Recorded By Document 12/30/22 16:03 [id number] 12/30/22 16:03 12/30/22 16:03 Wound Center Nurse 2 -Correct Patient No -Correct Side, Site, Position No -Correct Procedure No -Procedure Performed No -Wound/Ulcer Outcome Not Healed Pain Scale: 0-10 Numeric Is Patient Pain Free? Yes - Nurse 3 - General Ulcer D/C NN Start: 12/30/22 15:11 Freq: Status: Active Protocol: Activity Type Activity Date Activity User E-sign Co-sign Detail Recorded Client Recorded Date Recorded By Document 12/30/22 16:30 [facility] [id number] 12/30/22 16:30 [facility] 12/30/22 16:30 Wound Care Center Nurse 3 #1- sacral -Ulcer Cleansing Rinsed/ Irrigated with Saline -Foul Odor after Cleansing No -Negative Pressure Wound Therapy Continue -Setting (mmHg) 150 -Negative Pressure is Continuous -NPWT Application Charge NPWT & Debridement (nc ) Treatment Response Procedure Tolerated Well Pain Scale: 0-10 Numeric Is Patient Pain Free? 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 She is finishing Augmetin and Flagyl perioperatively. The bone culture showed Kocuria kristinae. Will check with Infectious Diseases if that needs to be treated since it is in the bone. On 10/30/22, it was 20.1. Encourage nutritional supplementation with protein to help the healing process. Followup one week.
[2023-01-06 15:35] VITALS: BP 112/37; PULSE 77; RESP 16; TEMP 36.2; BMI 22.8
--- NOTE | 2023-01-06 16:27 | PN.PCM_ITS ---
History of Present Illness Date of Service: 01/06/23 Chief Complaint: Sacral pressure sore, Stage IV. History of Wound: Surgery 12/18/22 - Excision sacral pressure sore, Stage IV, with partial ostectomy for osteomyelitis. Wound care - VAC. Operative Culture - Corynebacterium striatum in the soft tissue and Kocuria kristinae in the bone. Was treated perioperatively with Augmentin and Flagyl for a preop culture positive for Enterococcus faecalis and Anaerobes. Kocuria kristinae in the bone is positive for osteomyelitis. It is significant and should be treated since it didn't show up in the soft tissue culture. She was placed on Augmentin for this. Pathology - Negative for acute osteomyelitis. Chronic reparative and reactive change. Prealbumin from 10/30/22 was 20.1. Encourage nutritional supplementation with protein to help the healing process. MRI Pelvis from 08/21/22 - 2.8 cm decubitus ulcer at the base of the coccyx without discrete evidence of osteomyelitis. Today she denies fever. Her appetite is good. Last 2021 she had diagnosis of osteomyelitis. She was placed on IV antibiotics per Infectious Diseases for 6 weeks until January,. This is important because it establishes a timeline for chronic refractory osteomyelitis. Progress of Wound: Recent surgery on 12/18/22. Objective Data Objective Data Vital Signs: Vital Signs Temp Pulse Resp BP O2 Del Method 97.2 F L 77 16 112/37 L Room Air 01/06/23 15:35 01/06/23 15:35 01/06/23 15:35 01/06/23 15:35 01/06/23 15:35 Oxygen Delivery Method Room Air Weight: 145 lb 9.6 oz Body Mass Index (BMI) 22.8 Prealbumin from 10/30/22 was 20.1. Encourage nutritional supplementation with protein to help the healing process. Lab / Micro Data Attestation: I reviewed the patient's lab results. Micro: Microbiology 12/18/22 11:14 Soft Tissue - Sacral Pressure Sore Culture - Corynebacterium striatum. 12/18/22 11:18 Bone - Sacral Pressure Sore Culture - Kocuria kristinae. Pathology - Negative for acute osteomyelitis. Chronic reparative and reactive change. Charges/Coding Procedures Integumentary 111xxx-113xx: 86241 Global Visit (ICD-10 - L89.154, M86.9, M62.3, G35, Z79.620, Z87.891) Physical Exam Narrative PHYSICAL EXAMINATION General - Alert and Oriented HEENT - PERRL. EOMI. Ears - normal tympanic membranes. No bleeding seen in the tympanic membranes. No fluid seen behind the tympanic membranes. Neck - Supple and nontender. No cervical adenopathy. Lungs - Clear to auscultation. Heart - Regular rate and rhythm. Abdomen - Soft and nondistended. Sacral - Pressure sore is stable. Some granulation tissue seen on the bone. After debridement, hemostasis obtained with gauze compression. Neuro - CN II-XII grossly intact. Psych - Normal mood and affect. Debridement Note Debridement Note Wound debrided: #1 Sacral area. Laterality: Not Applicable Wound Grade/Stage: IV. Type of Debridement: Excisional debridement Anesthesia Used: 4% Lidocaine Solution and 5% Lidocaine Gel Depth: Down to and including healthy tissue, in the subcutaneous layer, to muscle and to bone (bone is exposed but not debrided.) Percentage of wound debrided: 100 Instrument Used: 5mm curette Tissue Removed: subcutaneous tissue and muscle. Severity: Fat Layer Exposed (muscle is exposed. bone is exposed but not debrided.) Amount of bleeding with debridement: Mild Bleeding Controlled with: Pressure and Compression and gauze Patient tolerated procedure: Patient tolerated procedure well Post-Debridement Measurements and Additional Note: Post-Debridement Measurements/Treatment - Nurse 1 - General Ulcer Assessment Start: 12/30/22 15:11 Freq: Status: Active Protocol: BENIGNO Activity Type Activity Date Activity User E-sign Co-sign Detail Recorded Client Recorded Date Recorded By Document 12/30/22 15:13 [facility] [id number] 12/30/22 15:26 [facility] Document 01/06/23 15:35 [facility] [id number] 01/06/23 15:46 [facility] 12/30/22 01/06/23 15:13 15:35 - Today's Visit Information Type of service Follow-up Visit Follow-up Visit (Physician/SUPERVISOR CUSTOMER COMPLAINT SERVICE (Physician/SUPERVISOR CUSTOMER COMPLAINT SERVICE ) ) Arrival Mode Wheelchair Wheelchair Transfer Assistance Other Other Transfer Assist (Other) ASSISTS W/ transfers SLIDE Accompanied by Patient Identification Verified (Name & Yes Yes ) Patient Requires Transmission-Based No No Precautions Height and Weight Body Mass Index (BMI) 22.8 22.8 BMI Classification Normal Normal Vital Signs Temperature (97.8 F-99.1 F) 97.1 F L 97.2 F L Temperature Source Temporal Temporal Pulse Rate (60-100) 100 77 Pulse Location Monitor Monitor Respiratory Rate (12-18) 16 16 Respiratory rate source Observation Observation Oxygen Delivery Method Room Air Room Air Blood Pressure (90/60-120/80) 164/53 H 112/37 L Blood Pressure Mean (mm Hg) 90 62 Source Monitor Monitor Position Sitting Sitting Blood Pressure Location Right Arm Right Arm History Since Last Visit- (Skip if this is Patient's initial visit) Have you changed medications since your No No last visit? Any new allergies or adverse reactions No No Had a fall/change in ADL's that may No No increase risk of falls Signs or symptoms of abuse and/or No No neglect since last visit Have you been in the hospital since your Yes No last visit? Has dressing in place as prescribed Yes Has compression in place as prescribed N/A Has offloadiing in place as prescribed N/A Experienced any changes in pain level or No management Left Footwear Regular Shoe Regular Shoe Right Footwear Regular Shoe Regular Shoe Pain Scale: 0-10 Numeric Is Patient Pain Free? Yes Yes WC - Nurse 1 - General Ulcer Measurement Start: 12/30/22 15:11 Freq: Status: Active Protocol: Activity Type Activity Date Activity User E-sign Co-sign Detail Recorded Client Recorded Date Recorded By Document 12/30/22 15:13 [facility] [id number] 12/30/22 15:26 [facility] Document 01/06/23 15:35 [facility] [id number] 01/06/23 15:46 [facility] 12/30/22 01/06/23 15:13 15:35 Wound Center Nurse 1 #1- sacral -Combined with other wound No No -Current Size (cm) - Length 8.2 7.2 -Current Size (cm) - Width 0.8 1.5 -Current Size (cm) - Depth 7 5.5 -Total Square Cm 6.56 10.80 -Date of Last Picture (Recall this 12/30/22 01/06/23 field) -Photo Taken Yes Yes -Epithelialization None Present None Present -Tunneling No No -Undermining/Tunneling No No -Circular Undermining No No -Exudate Amt Large Large -Exudate Type Serosanguineous Serosanguineous -Wound Margin Distinct, Distinct, Outline Outline Attached Attached -Granulation Amt Small (1-33%) Large (67-100%) -Granulation Quality Red Red -Slough/Fibrin Yes Yes -Necrosis Amt Large (67-100%) Medium (34-66%) -Necrotic Tissue Type Adherent Slough Adherent Slough -Structure Exposed Bone -Texture (Neda-wound Skin Appearance) Assessed, Assessed, Scarring Scarring -Moisture (Neda-wound Skin Appearance) Assessed Assessed -Color (Neda-wound Skin Appearance) Assessed Assessed -Temperature (Neda-wound Skin No Abnormality No Abnormality Appearance) (Pt Warm) (Pt Warm) -Tenderness on Palpation (Neda-wound No No Skin Appearance) -Ulcer Cleansing Soap and Water Soap and Water -Foul Odor after Cleansing No No -Anesthetic Used 4% Lidocaine Solution WC - Nurse 2 - General Ulcer CM Notes Start: 12/30/22 15:11 Freq: Status: Active Protocol: Activity Type Activity Date Activity User E-sign Co-sign Detail Recorded Client Recorded Date Recorded By Document 12/30/22 16:03 [id number] 12/30/22 16:03 Document 01/06/23 15:59 [id number] 01/06/23 16:08 12/30/22 01/06/23 16:03 15:59 Wound Center Nurse 2 #1- sacral -Time 16:02 -Correct Patient No Yes -Correct Side, Site, Position No Yes -Correct Procedure No Yes -Procedure Performed No Yes -Type of Procedure Debridement -Clinical Debridement Muscle / Fascia -Tissue Removed Muscle,Fascia -Post Debridement (cm) - Length 7.2 -Post Debridement (cm) - Width 1.5 -Post Debridement (cm) - Depth 5.5 -Total Square (Post) (cm) 10.80 -Area of Debridement (cm) - Length 7.2 -Area of Debridement (cm) - Width 1.5 -Total Square (Area) (cm) 10.80 -Tunneling No -Undermining/Tunneling No -Circular Undermining No -Wound/Ulcer Outcome Not Healed Not Healed -Ulcer Cleansing Rinsed/ Irrigated with Saline -Foul Odor after Cleansing Yes, Due to Product Use -Bioengineered Tissue No -Bleeding Controlled with Pressure -Treatment Response Procedure Tolerated Well -Offloading No -Debridement - Muscle / Fascia, 1st Yes 20sq cm Pain Scale: 0-10 Numeric Is Patient Pain Free? Yes Yes - Nurse 3 - General Ulcer D/C NN Start: 12/30/22 15:11 Freq: Status: Active Protocol: Activity Type Activity Date Activity User E-sign Co-sign Detail Recorded Client Recorded Date Recorded By Document 12/30/22 16:30 [facility] [id number] 12/30/22 16:30 [facility] Document 01/06/23 16:19 [id number] 01/06/23 16:21 12/30/22 01/06/23 16:30 16:19 Wound Care Center Nurse 3 #1- sacral -Ulcer Cleansing Rinsed/ Rinsed/ Irrigated with Irrigated with Saline Saline -Foul Odor after Cleansing No -Negative Pressure Wound Therapy Continue Continue -Setting (mmHg) 150 150 -Negative Pressure is Continuous Continuous -NPWT Application Charge NPWT & NPWT </= 50 sq Debridement (nc cm ($) ) Treatment Response Procedure Tolerated Well Pain Scale: 0-10 Numeric Is Patient Pain Free? Yes Yes - Visit Discharge Discharge Condition Stable Unstable Ambulatory Status Wheelchair Wheelchair Transportation Private Auto Private Auto Accompanied by Medication Reconcilliation completed & Yes provided to patient/care provider Clinical Summary of Care Provided Yes Assessment/Plan Assessment/Plan (1) Sacral decubitus ulcer, stage IV: CODE(S): L89.154 - Pressure ulcer of sacral region, stage 4 (2) Osteomyelitis: CODE(S): M86.9 - Osteomyelitis, unspecified (3) Immobility syndrome (paraplegic): CODE(S): M62.3 - Immobility syndrome (paraplegic) (4) Multiple sclerosis: CODE(S): G35 - Multiple sclerosis (5) Long-term current use of rituximab: CODE(S): Z79.620 - 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 Kocuria kristinae in the bone is positive for osteomyelitis. It is significant and should be treated since it didn't show up in the soft tissue culture. She was placed on Augmentin per Infectious Diseases recommendation. On 10/30/22, it was 20.1. Encourage nutritional supplementation with protein to help the healing process. Last 2021 she had diagnosis of osteomyelitis. She was placed on IV antibiotics per Infectious Diseases for 6 weeks until January,. This is important because it establishes a timeline for chronic refractory osteomyelitis. She is a candidate for HBO Treatments. Will obtain insurance approval. She is to get a CXR and EKG. Followup 2 weeks.
[2023-01-20 15:08] VITALS: BP 117/69; PULSE 89; RESP 20; TEMP 36.4; BMI 22.8
--- NOTE | 2023-01-20 16:15 | PCM.WC.PN ---
History of Present Illness Date of Service: 01/20/23 Chief Complaint: Sacral pressure sore, Stage IV. History of Wound: Surgery 12/18/22 - Excision sacral pressure sore, Stage IV, with partial ostectomy for osteomyelitis. Wound care - VAC. Operative Culture - Corynebacterium striatum in the soft tissue and Kocuria kristinae in the bone. Was treated perioperatively with Augmentin and Flagyl for a preop culture positive for Enterococcus faecalis and Anaerobes. Kocuria kristinae in the bone is positive for osteomyelitis. It is significant and should be treated since it didn't show up in the soft tissue culture. She was placed on Augmentin for this. Pathology - Negative for acute osteomyelitis. Chronic reparative and reactive change. Prealbumin from 10/30/22 was 20.1. Encourage nutritional supplementation with protein to help the healing process. MRI Pelvis from 08/21/22 - 2.8 cm decubitus ulcer at the base of the coccyx without discrete evidence of osteomyelitis. Today she denies fever. Her appetite is good. Last 2021 she had diagnosis of osteomyelitis. She was placed on IV antibiotics per Infectious Diseases for 6 weeks until January,. This is important because it establishes a timeline for chronic refractory osteomyelitis. Progress of Wound: Recent surgery on 12/18/22. Bone almost covered with granulation tissue. Objective Data Objective Data Vital Signs: Vital Signs Temp Pulse Resp BP O2 Del Method 97.6 F L 89 20 H 117/69 Room Air 01/20/23 15:08 01/20/23 15:08 01/20/23 15:08 01/20/23 15:08 01/06/23 15:35 Oxygen Delivery Method Room Air Weight: 145 lb 9.6 oz Body Mass Index (BMI) 22.8 Prealbumin from 10/30/22 was 20.1. Encourage nutritional supplementation with protein to help the healing process. Lab / Micro Data Attestation: I reviewed the patient's lab results. Micro: Microbiology 12/18/22 11:14 Soft Tissue - Sacral Pressure Sore Culture - Corynebacterium striatum. 12/18/22 11:18 Bone - Sacral Pressure Sore Culture - Kocuria kristinae. Pathology - Negative for acute osteomyelitis. Chronic reparative and reactive change. Radiography Diagnostic Testing: Study: Chest PA and Lateral Date of Exam: 01/06/23 Exam# [id number] Ordering Dr: Aaron Gregory MD INDICATION: HYPERBARIC OXYGEN THERAPY EXAMINATION/TECHNIQUE: X-RAY - XR Chest 2 Views COMPARISON: No previous relevant examinations available for comparison.. FINDINGS: LIFE-SUPPORT AND LINES: 1. None HEART AND VESSELS: The cardiac silhouette, pulmonary vasculature have normal appearance. No evidence of congestive failure. LUNGS AND PLEURAL SPACES: Lungs are clear. No focal infiltrate, consolidation or effusions. No evidence of pneumothorax. No pulmonary mass is noted. MEDIASTINUM AND HILAR REGIONS: No masses adenopathy noted. No areas of calcification. Visualized upper airway is normal in position. BONY ELEMENTS: No acute bony changes noted. RAD/Chest PA and Lateral IMPRESSION: 1. No evidence of acute cardiopulmonary process Electronically Signed: Humberto Tolentino MD at 1:00 EDT , Charges/Coding Procedures Integumentary [id number]: [id number] Global Visit (ICD-10 - L89.154, M86.9, M62.3, G35, Z79.620, Z87.891) Debridement Note Debridement Note Wound debrided: #1 Sacral area. Laterality: Not Applicable Wound Grade/Stage: IV. Type of Debridement: Excisional debridement Anesthesia Used: 4% Lidocaine Solution and 5% Lidocaine Gel Depth: Down to and including healthy tissue, in the subcutaneous layer, to muscle and to bone (bone is exposed but not debrided.) Percentage of wound debrided: 100 Instrument Used: 5mm curette Tissue Removed: subcutaneous tissue and muscle. Severity: Fat Layer Exposed (muscle is exposed. bone is exposed but not debrided.) Amount of bleeding with debridement: Mild Bleeding Controlled with: Pressure and Compression and gauze Patient tolerated procedure: Patient tolerated procedure well Post-Debridement Measurements and Additional Note: Post-Debridement Measurements/Treatment WC - Nurse 1 - General Ulcer Assessment Start: 12/30/22 15:11 Freq: Status: Active Protocol: WC.LOWEXT Activity Type Activity Date Activity User E-sign Co-sign Detail Recorded Client Recorded Date Recorded By Document 12/30/22 15:13 [facility] [id number] 12/30/22 15:26 BM Document 01/06/23 15:35 [facility] [id number] 01/06/23 15:46 [facility] Document 01/20/23 15:08 PL [id number] 01/20/23 15:09 PL 12/30/22 01/06/23 01/20/23 15:13 15:35 15:08 WC - Today's Visit Information Type of service Follow-up Visit Follow-up Visit Follow-up Visit (Physician/ELECTRICAL DESIGN TECHNICIAN (Physician/ELECTRICAL DESIGN TECHNICIAN (Physician/ELECTRICAL DESIGN TECHNICIAN ) ) ) Arrival Mode Wheelchair Wheelchair Wheelchair Transfer Assistance Other Other Transfer Board Transfer Assist (Other) ASSISTS W/ transfers SLIDE Accompanied by Patient Identification Verified (Name & Yes Yes Yes ) Patient Requires Transmission-Based No No No Precautions Height and Weight Body Mass Index (BMI) 22.8 22.8 22.8 BMI Classification Normal Normal Normal Vital Signs Temperature (97.8 F-99.1 F) 97.1 F L 97.2 F L 97.6 F L Temperature Source Temporal Temporal Temporal Pulse Rate (60-100) 100 77 89 Pulse Location Monitor Monitor Respiratory Rate (12-18) 16 16 20 H Respiratory rate source Observation Observation Oxygen Delivery Method Room Air Room Air Blood Pressure (90/60-120/80) 164/53 H 112/37 L 117/69 Blood Pressure Mean (mm Hg) 90 62 85 Source Monitor Monitor Position Sitting Sitting Blood Pressure Location Right Arm Right Arm History Since Last Visit- (Skip if this is Patient's initial visit) Have you changed medications since your No No No last visit? Any new allergies or adverse reactions No No No Had a fall/change in ADL's that may No No No increase risk of falls Signs or symptoms of abuse and/or No No No neglect since last visit Have you been in the hospital since your Yes No No last visit? Has dressing in place as prescribed Yes Yes Has compression in place as prescribed N/A N/A Has offloadiing in place as prescribed N/A N/A Experienced any changes in pain level or No No management Left Footwear Regular Shoe Regular Shoe Right Footwear Regular Shoe Regular Shoe Pain Scale: 0-10 Numeric Is Patient Pain Free? Yes Yes Yes - Nurse 1 - General Ulcer Measurement Start: 12/30/22 15:11 Freq: Status: Active Protocol: Activity Type Activity Date Activity User E-sign Co-sign Detail Recorded Client Recorded Date Recorded By Document 12/30/22 15:13 [facility] [id number] 12/30/22 15:26 BM Document 01/06/23 15:35 [facility] [id number] 01/06/23 15:46 [facility] 12/30/22 01/06/23 15:13 15:35 Wound Center Nurse 1 #1- sacral -Combined with other wound No No -Current Size (cm) - Length 8.2 7.2 -Current Size (cm) - Width 0.8 1.5 -Current Size (cm) - Depth 7 5.5 -Total Square Cm 6.56 10.80 -Date of Last Picture (Recall this 12/30/22 01/06/23 field) -Photo Taken Yes Yes -Epithelialization None Present None Present -Tunneling No No -Undermining/Tunneling No No -Circular Undermining No No -Exudate Amt Large Large -Exudate Type Serosanguineous Serosanguineous -Wound Margin Distinct, Distinct, Outline Outline Attached Attached -Granulation Amt Small (1-33%) Large (67-100%) -Granulation Quality Red Red -Slough/Fibrin Yes Yes -Necrosis Amt Large (67-100%) Medium (34-66%) -Necrotic Tissue Type Adherent Slough Adherent Slough -Structure Exposed Bone -Texture (Neda-wound Skin Appearance) Assessed, Assessed, Scarring Scarring -Moisture (Neda-wound Skin Appearance) Assessed Assessed -Color (Neda-wound Skin Appearance) Assessed Assessed -Temperature (Neda-wound Skin No Abnormality No Abnormality Appearance) (Pt Warm) (Pt Warm) -Tenderness on Palpation (Neda-wound No No Skin Appearance) -Ulcer Cleansing Soap and Water Soap and Water -Foul Odor after Cleansing No No -Anesthetic Used 4% Lidocaine Solution DEBBI - Nurse 2 - General Ulcer CM Notes Start: 12/30/22 15:11 Freq: Status: Active Protocol: Activity Type Activity Date Activity User E-sign Co-sign Detail Recorded Client Recorded Date Recorded By Document 12/30/22 16:03 [id number] 12/30/22 16:03 Document 01/06/23 15:59 [id number] 01/06/23 16:08 JF Document 01/20/23 15:42 [id number] 01/20/23 15:50 JF Edit Result 01/20/23 15:42 JF (1) [id number] 01/20/23 15:55 JF (1) #1- sacral - Post Debridement (cm) - Depth 7.5 => 5.2 12/30/22 01/06/23 01/20/23 16:03 15:59 15:42 Wound Center Nurse 2 #1- sacral -Time 16:02 15:44 -Correct Patient No Yes Yes -Correct Side, Site, Position No Yes Yes -Correct Procedure No Yes Yes -Procedure Performed No Yes Yes -Type of Procedure Debridement Debridement -Clinical Debridement Muscle / Fascia Muscle / Fascia -Tissue Removed Muscle,Fascia Muscle -Post Debridement (cm) - Length 7.2 6.3 -Post Debridement (cm) - Width 1.5 3.0 -Post Debridement (cm) - Depth 5.5 5.2 -Total Square (Post) (cm) 10.80 18.90 -Area of Debridement (cm) - Length 7.2 6.3 -Area of Debridement (cm) - Width 1.5 3.0 -Total Square (Area) (cm) 10.80 18.90 -Tunneling No No -Undermining/Tunneling No No -Circular Undermining No No -Wound/Ulcer Outcome Not Healed Not Healed Not Healed -Ulcer Cleansing Rinsed/ Rinsed/ Irrigated with Irrigated with Saline Saline -Foul Odor after Cleansing Yes, Due to No Product Use -Bioengineered Tissue No No -Bleeding Controlled with Pressure Pressure -Treatment Response Procedure Procedure Tolerated Well Tolerated Well -Offloading No No -Pressure Reduction Wheelchair cushion -Debridement - Muscle / Fascia, 1st Yes Yes 20sq cm Pain Scale: 0-10 Numeric Is Patient Pain Free? Yes Yes Yes WC - Nurse 3 - General Ulcer D/C NN Start: 12/30/22 15:11 Freq: Status: Active Protocol: Activity Type Activity Date Activity User E-sign Co-sign Detail Recorded Client Recorded Date Recorded By Document 12/30/22 16:30 STEPHEN [id number] 12/30/22 16:30 [facility] Document 01/06/23 16:19 MAHESH [id number] 01/06/23 16:21 MAHESH 12/30/22 01/06/23 16:30 16:19 Wound Care Center Nurse 3 #1- sacral -Ulcer Cleansing Rinsed/ Rinsed/ Irrigated with Irrigated with Saline Saline -Foul Odor after Cleansing No -Negative Pressure Wound Therapy Continue Continue -Setting (mmHg) 150 150 -Negative Pressure is Continuous Continuous -NPWT Application Charge NPWT & NPWT </= 50 sq Debridement (nc cm ($) ) Treatment Response Procedure Tolerated Well Pain Scale: 0-10 Numeric Is Patient Pain Free? Yes Yes WC - Visit Discharge Discharge Condition Stable Unstable Ambulatory Status Wheelchair Wheelchair Transportation Private Auto Private Auto Accompanied by Medication Reconcilliation completed & Yes provided to patient/care provider Clinical Summary of Care Provided Yes Assessment/Plan Assessment/Plan (1) Sacral decubitus ulcer, stage IV: CODE(S): L89.154 - Pressure ulcer of sacral region, stage 4 (2) Osteomyelitis: CODE(S): M86.9 - Osteomyelitis, unspecified (3) Immobility syndrome (paraplegic): CODE(S): M62.3 - Immobility syndrome (paraplegic) (4) Multiple sclerosis: CODE(S): G35 - Multiple sclerosis (5) Long-term current use of rituximab: CODE(S): Z79.620 - retirement (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 Kocuria kristinae in the bone is positive for osteomyelitis. It is significant and should be treated since it didn't show up in the soft tissue culture. She was placed on Augmentin per Infectious Diseases recommendation. She states she is getting a yeast infection. Wrote script for Diflucan. Also renewed her Baclofen. On 10/30/22, it was 20.1. Encourage nutritional supplementation with protein to help the healing process. Last 2021 she had diagnosis of osteomyelitis. She was placed on IV antibiotics per Infectious Diseases for 6 weeks until January,. This is important because it establishes a timeline for chronic refractory osteomyelitis. She is a candidate for HBO Treatments. We have received insurance approval for the HBO treatments. Usual amount is 40-60 treatments. She had a CXR on 01/06/23. It showed no evidence of acute cardiopulmonary process. No evidence of congestive heart failure. No evidence pneumothorax. No focal infiltrates, consolidations, or effusions. I looked a in her ears with an otoscope at her last visit on 01/06/23. She had normal tympanic membranes. No bleeding was seen in the tympanic membranes. No fluid was seen behind the tympanic membranes. Anticipate starting HBO treatments next week. Followup 2 weeks.
== END 2023-01-23 23:59 | disposition home or self-care (01) ==
LOC: WC 15:15
PROVIDERS: PCP Family Medicine; Referring Provider Nurse Practitioner; Visit Provider Surgery
DX: L89.154 Pressure ulcer of sacral region, stage 4 (principal); G35 Multiple sclerosis; M86.9 Osteomyelitis, unspecified; M62.3 Immobility syndrome (paraplegic); Z79.620 Long term (current) use of immunosuppressive biologic; Z87.891 Personal history of nicotine dependence
CPT/HCPCS: 11043; 97605; 99213; G0463

== ENCOUNTER 2023-02-21 08:00 | Outpatient (RCR) | payer MEDICARE, BC, SELFPAY ==
[2023-01-24 00:35] VITALS: BP 117/69; PULSE 89; RESP 20; TEMP 36.4; BMI 22.8
--- NOTE | 2023-01-28 13:19 | PCM.HBO.PN ---
History of Present Illness Date of Service: 01/28/23 Chief Complaint: Sacral pressure sore, Stage IV. History of Wound: Surgery 12/18/22 - Excision sacral pressure sore, Stage IV, with partial ostectomy for osteomyelitis. Wound care - VAC. Operative Culture - Corynebacterium striatum in the soft tissue and Kocuria kristinae in the bone. Was treated perioperatively with Augmentin and Flagyl for a preop culture positive for Enterococcus faecalis and Anaerobes. Kocuria kristinae in the bone is positive for osteomyelitis. It is significant and should be treated since it didn't show up in the soft tissue culture. She was placed on Augmentin for this. Pathology - Negative for acute osteomyelitis. Chronic reparative and reactive change. Prealbumin from 10/30/22 was 20.1. Encourage nutritional supplementation with protein to help the healing process. MRI Pelvis from 08/21/22 - 2.8 cm decubitus ulcer at the base of the coccyx without discrete evidence of osteomyelitis. Last 2021 she had diagnosis of osteomyelitis. She was placed on IV antibiotics per Infectious Diseases for 6 weeks until January,. This is important because it establishes a timeline for chronic refractory osteomyelitis. Subjective Subjective Today she presents for hyperbaric oxygen therapy session 1 . Hyperbaric oxygen therapy was administered as per the facility's protocol.? Hyperbaric oxygen therapy was administered at 2.0 LIONEL in 100% oxygen for 90 minutes without air breaks.? The patient tolerated hyperbaric oxygen therapy well, without complications or complaints. Upon emergence of the hyperbaric chamber, the patient's vital signs remained stable.? She was discharged in good condition. Objective Data Objective Data Vital Signs: Vital Signs Temp Pulse Resp BP 97.6 F L 89 20 H 117/69 01/24/23 00:35 01/24/23 00:35 01/24/23 00:35 01/24/23 00:35 Weight: 145 lb 9.6 oz Body Mass Index (BMI) 22.8 Exam Physical Exam Const alert, oriented x3 and no apparent distress General Appearance: cooperative, comfortable and well kempt HEENT normocephalic Tympanic Membrane: TM's normal bilaterally Eyes General Eye: normal appearance of both eyes Chest inspection of chest normal Resp normal respiratory effort Effort and Inspection: able to speak in complete sentences Auscultation: clear to auscultation bilaterally Cardio regular rate and regular rhythm Psych mental status grossly normal Appearance: grossly normal Assessment/Plan Assessment/Plan (1) Osteomyelitis: CODE(S): M86.9 - Osteomyelitis, unspecified (2) Sacral decubitus ulcer, stage IV: CODE(S): L89.154 - Pressure ulcer of sacral region, stage 4 PLAN: Plan She is tolerating and benefiting from hyperbaric oxygen therapy which will be continued per the patient's medical plan.
[2023-01-28 15:25] VITALS: BP 103/51; BP 95/65; PULSE 113; PULSE 73; RESP 18; TEMP 35.7; TEMP 36.4
--- NOTE | 2023-01-29 13:49 | PCM.HBO.PN ---
History of Present Illness Date of Service: 01/29/23 Chief Complaint: Sacral pressure sore, Stage IV. History of Wound: Surgery 12/18/22 - Excision sacral pressure sore, Stage IV, with partial ostectomy for osteomyelitis. Wound care - VAC. Operative Culture - Corynebacterium striatum in the soft tissue and Kocuria kristinae in the bone. Was treated perioperatively with Augmentin and Flagyl for a preop culture positive for Enterococcus faecalis and Anaerobes. Kocuria kristinae in the bone is positive for osteomyelitis. It is significant and should be treated since it didn't show up in the soft tissue culture. She was placed on Augmentin for this. Pathology - Negative for acute osteomyelitis. Chronic reparative and reactive change. Prealbumin from 10/30/22 was 20.1. Encourage nutritional supplementation with protein to help the healing process. MRI Pelvis from 08/21/22 - 2.8 cm decubitus ulcer at the base of the coccyx without discrete evidence of osteomyelitis. Last 2021 she had diagnosis of osteomyelitis. She was placed on IV antibiotics per Infectious Diseases for 6 weeks until January,. This is important because it establishes a timeline for chronic refractory osteomyelitis. Subjective Subjective Today she presents for hyperbaric oxygen therapy session 2 of . Hyperbaric oxygen therapy was administered as per the facility's protocol.? Hyperbaric oxygen therapy was administered at 2.0 LIONEL in 100% oxygen for 90 minutes without air breaks.? The patient tolerated hyperbaric oxygen therapy well, without complications or complaints. Upon emergence of the hyperbaric chamber, the patient's vital signs remained stable.? She was discharged in good condition. Objective Data Objective Data Vital Signs: Vital Signs Temp Pulse Resp BP 97.6 F L 113 H 18 95/65 01/28/23 15:25 01/28/23 15:25 01/28/23 15:25 01/28/23 15:25 Weight: 145 lb 9.6 oz Body Mass Index (BMI) 22.8 Exam Physical Exam Const alert, oriented x3 and no apparent distress General Appearance: cooperative, comfortable and well kempt HEENT normocephalic Tympanic Membrane: TM's normal bilaterally Eyes General Eye: normal appearance of both eyes Chest inspection of chest normal Resp normal respiratory effort Effort and Inspection: able to speak in complete sentences Auscultation: clear to auscultation bilaterally Cardio regular rate and regular rhythm Psych mental status grossly normal Appearance: grossly normal Assessment/Plan Assessment/Plan (1) Osteomyelitis: CODE(S): M86.9 - Osteomyelitis, unspecified (2) Sacral decubitus ulcer, stage IV: CODE(S): L89.154 - Pressure ulcer of sacral region, stage 4 PLAN: Plan She is tolerating and benefiting from hyperbaric oxygen therapy which will be continued per the patient's medical plan.
[2023-01-29 15:58] VITALS: BP 101/56; BP 97/60; PULSE 63; PULSE 93; RESP 18; RESP 20; TEMP 35.6; TEMP 36.2
[2023-01-30 12:57] VITALS: BP 106/43; BP 123/69; PULSE 79; PULSE 80; RESP 18; TEMP 36.1; TEMP 36.6
--- NOTE | 2023-01-30 13:14 | PCM.HBO.PN ---
History of Present Illness Date of Service: 01/30/23 Chief Complaint: Sacral pressure sore, Stage IV. History of Wound: Surgery 12/18/22 - Excision sacral pressure sore, Stage IV, with partial ostectomy for osteomyelitis. Wound care - VAC. Operative Culture - Corynebacterium striatum in the soft tissue and Kocuria kristinae in the bone. Was treated perioperatively with Augmentin and Flagyl for a preop culture positive for Enterococcus faecalis and Anaerobes. Kocuria kristinae in the bone is positive for osteomyelitis. It is significant and should be treated since it didn't show up in the soft tissue culture. She was placed on Augmentin for this. Pathology - Negative for acute osteomyelitis. Chronic reparative and reactive change. Prealbumin from 10/30/22 was 20.1. Encourage nutritional supplementation with protein to help the healing process. MRI Pelvis from 08/21/22 - 2.8 cm decubitus ulcer at the base of the coccyx without discrete evidence of osteomyelitis. Last 2021 she had diagnosis of osteomyelitis. She was placed on IV antibiotics per Infectious Diseases for 6 weeks until January,. This is important because it establishes a timeline for chronic refractory osteomyelitis. Subjective Subjective Today she presents for hyperbaric oxygen therapy session 3 of . Hyperbaric oxygen therapy was administered as per the facility's protocol.? Hyperbaric oxygen therapy was administered at 2.0 LIONEL in 100% oxygen for 90 minutes without air breaks.? The patient tolerated hyperbaric oxygen therapy well, without complications or complaints. Upon emergence of the hyperbaric chamber, the patient's vital signs remained stable.? She was discharged in good condition. Objective Data Objective Data Vital Signs: Vital Signs Temp Pulse Resp BP 96.1 F L 93 18 97/60 01/29/23 15:58 01/29/23 15:58 01/29/23 15:58 01/29/23 15:58 Weight: 145 lb 9.6 oz Body Mass Index (BMI) 22.8 Exam Physical Exam Const alert, oriented x3 and no apparent distress General Appearance: cooperative, comfortable and well kempt HEENT normocephalic Tympanic Membrane: TM's normal bilaterally Eyes General Eye: normal appearance of both eyes Chest inspection of chest normal Resp normal respiratory effort Effort and Inspection: able to speak in complete sentences Auscultation: clear to auscultation bilaterally Cardio regular rate and regular rhythm Psych mental status grossly normal Appearance: grossly normal Assessment/Plan Assessment/Plan (1) Osteomyelitis: CODE(S): M86.9 - Osteomyelitis, unspecified (2) Sacral decubitus ulcer, stage IV: CODE(S): L89.154 - Pressure ulcer of sacral region, stage 4 PLAN: Plan She is tolerating and benefiting from hyperbaric oxygen therapy which will be continued per the patient's medical plan.
[2023-01-31 10:44] VITALS: BP 106/59; BP 116/58; PULSE 63; PULSE 99; RESP 16; RESP 18; TEMP 36.4
--- NOTE | 2023-01-31 13:40 | PCM.HBO.PN ---
History of Present Illness Date of Service: 01/31/23 Chief Complaint: Sacral pressure sore, Stage IV. History of Wound: Surgery 12/18/22 - Excision sacral pressure sore, Stage IV, with partial ostectomy for osteomyelitis. Wound care - VAC. Operative Culture - Corynebacterium striatum in the soft tissue and Kocuria kristinae in the bone. Was treated perioperatively with Augmentin and Flagyl for a preop culture positive for Enterococcus faecalis and Anaerobes. Kocuria kristinae in the bone is positive for osteomyelitis. It is significant and should be treated since it didn't show up in the soft tissue culture. She was placed on Augmentin for this. Pathology - Negative for acute osteomyelitis. Chronic reparative and reactive change. Prealbumin from 10/30/22 was 20.1. Encourage nutritional supplementation with protein to help the healing process. MRI Pelvis from 08/21/22 - 2.8 cm decubitus ulcer at the base of the coccyx without discrete evidence of osteomyelitis. Last 2021 she had diagnosis of osteomyelitis. She was placed on IV antibiotics per Infectious Diseases for 6 weeks until January,. This is important because it establishes a timeline for chronic refractory osteomyelitis. Subjective Subjective Today she presents for hyperbaric oxygen therapy session 4 of for treatment of chronic refractory osteomyelitis of her sacrum with stage 4 pressure ulcer. Hyperbaric oxygen therapy was administered as per the facility's protocol.? Hyperbaric oxygen therapy was administered at 2.0 LIONEL in 100% oxygen for 90 minutes without air breaks.? The patient tolerated hyperbaric oxygen therapy well, without complications or complaints. Upon emergence of the hyperbaric chamber, the patient's vital signs remained stable.? She was discharged in good condition. Objective Data Objective Data Vital Signs: Vital Signs Temp Pulse Resp BP 97.5 F L 99 18 116/58 L 01/31/23 10:44 01/31/23 10:44 01/31/23 10:44 01/31/23 10:44 Weight: 66.043 kg Body Mass Index (BMI) 22.8 Exam Physical Exam Const alert, oriented x3 and no apparent distress HEENT EAC's normal and TM's normal bilaterally Psych mental status grossly normal, thought process normal, cooperative, affect normal and speech normal Assessment and Debridement #1- sacral: Debridement not Completed: No debridement was completed today Nursing Assessment and Debridement Post-Debridement Measurements and Additional Note: Post-Debridement Measurements/Treatment WC - Nurse 3 - General Ulcer D/C NN Start: 01/28/23 15:25 Freq: Status: Active Protocol: Activity Type Activity Date Activity User E-sign Co-sign Detail Recorded Client Recorded Date Recorded By Document 01/31/23 10:44 MAHESH [id number] 01/31/23 10:48 MAHESH 01/31/23 10:44 Pain Scale: 0-10 Numeric Is Patient Pain Free? Yes WC - Visit Discharge Discharge Condition Stable Ambulatory Status Wheelchair Transportation Private Auto Medication Reconcilliation completed & Yes provided to patient/care provider Clinical Summary of Care Provided Yes Assessment/Plan Assessment/Plan (1) Osteomyelitis: CODE(S): M86.9 - Osteomyelitis, unspecified QUALIFIERS: Osteomyelitis type: other chronic Osteomyelitis location: other site Qualified Code(s): M86.68 - Other chronic osteomyelitis, other site (2) Sacral decubitus ulcer, stage IV: CODE(S): L89.154 - Pressure ulcer of sacral region, stage 4 PLAN: Plan She is tolerating and benefiting from hyperbaric oxygen therapy which will be continued per the patient's medical plan.
[2023-02-03 15:25] VITALS: BP 115/61; PULSE 85; RESP 18; TEMP 36.1; BMI 22.8
--- NOTE | 2023-02-03 16:19 | PCM.WC.PN ---
History of Present Illness Date of Service: 02/03/23 Chief Complaint: Sacral pressure sore, Stage IV. History of Wound: Surgery 12/18/22 - Excision sacral pressure sore, Stage IV, with partial ostectomy for osteomyelitis. Wound care - VAC. Operative Culture - Corynebacterium striatum in the soft tissue and Kocuria kristinae in the bone. Was treated perioperatively with Augmentin and Flagyl for a preop culture positive for Enterococcus faecalis and Anaerobes. Kocuria kristinae in the bone is positive for osteomyelitis. It is significant and should be treated since it didn't show up in the soft tissue culture. She was placed on Augmentin and is finishing them. Pathology - Negative for acute osteomyelitis. Chronic reparative and reactive change. Prealbumin from 10/30/22 was 20.1. Encourage nutritional supplementation with protein to help the healing process. MRI Pelvis from 08/21/22 - 2.8 cm decubitus ulcer at the base of the coccyx without discrete evidence of osteomyelitis. Last 2021 she had diagnosis of osteomyelitis. She was placed on IV antibiotics per Infectious Diseases for 6 weeks until January,. This is important because it establishes a timeline for chronic refractory osteomyelitis. Progress of Wound: Slight improvement. More granulation tissue covering the bone. Objective Data Objective Data Vital Signs: Vital Signs Temp Pulse Resp BP 96.9 F L 85 18 115/61 02/03/23 15:25 02/03/23 15:25 02/03/23 15:25 02/03/23 15:25 Weight: 145 lb 9.6 oz Body Mass Index (BMI) 22.8 Prealbumin from 10/30/22 was 20.1. Encourage nutritional supplementation with protein to help the healing process. Lab / Micro Data Attestation: I reviewed the patient's lab results. Micro: Microbiology 12/18/22 11:14 Soft Tissue - Sacral Pressure Sore Culture - Corynebacterium striatum. 12/18/22 11:18 Bone - Sacral Pressure Sore Culture - Kocuria kristinae. Pathology - Negative for acute osteomyelitis. Chronic reparative and reactive change. Radiography Diagnostic Testing: Study: Chest PA and Lateral Date of Exam: 01/06/23 Exam# [id number] Ordering Dr: Aaron Gregory MD INDICATION: HYPERBARIC OXYGEN THERAPY EXAMINATION/TECHNIQUE: X-RAY - XR Chest 2 Views COMPARISON: No previous relevant examinations available for comparison.. FINDINGS: LIFE-SUPPORT AND LINES: 1. None HEART AND VESSELS: The cardiac silhouette, pulmonary vasculature have normal appearance. No evidence of congestive failure. LUNGS AND PLEURAL SPACES: Lungs are clear. No focal infiltrate, consolidation or effusions. No evidence of pneumothorax. No pulmonary mass is noted. MEDIASTINUM AND HILAR REGIONS: No masses adenopathy noted. No areas of calcification. Visualized upper airway is normal in position. BONY ELEMENTS: No acute bony changes noted. RAD/Chest PA and Lateral IMPRESSION: 1. No evidence of acute cardiopulmonary process Electronically Signed: Humberto Tolentino MD at 1:00 EDT , Charges/Coding Procedures Integumentary [id number]: [id number] Global Visit (ICD-10 - L89.154, M86.9, M62.3, G35, Z79.620, Z87.891) Debridement Note Debridement Note Wound debrided: #1 Sacral area. Laterality: Not Applicable Wound Grade/Stage: IV. Type of Debridement: Excisional debridement Anesthesia Used: 4% Lidocaine Solution and 5% Lidocaine Gel Depth: Down to and including healthy tissue, in the subcutaneous layer, to muscle and to bone (bone is exposed but not debrided.) Percentage of wound debrided: 100 Instrument Used: 5mm curette Tissue Removed: subcutaneous tissue and muscle. Severity: Fat Layer Exposed (muscle is exposed. bone is exposed but not debrided.) Amount of bleeding with debridement: Mild Bleeding Controlled with: Pressure and Compression and gauze Patient tolerated procedure: Patient tolerated procedure well Post-Debridement Measurements and Additional Note: Post-Debridement Measurements/Treatment DEBBI - Nurse 1 - General Ulcer Assessment Start: 01/28/23 15:25 Freq: Status: Active Protocol: BENIGNO Activity Type Activity Date Activity User E-sign Co-sign Detail Recorded Client Recorded Date Recorded By Document 02/03/23 15:25 [id number] 02/03/23 15:33 RB 02/03/23 15:25 WC - Today's Visit Information Type of service Follow-up Visit (Physician/BODY DIE MAKER ) Arrival Mode Wheelchair Transfer Assistance None Patient Identification Verified (Name & Yes ) Patient Requires Transmission-Based No Precautions Height and Weight Body Mass Index (BMI) 22.8 BMI Classification Normal Vital Signs Temperature (97.8 F-99.1 F) 96.9 F L Temperature Source Temporal Pulse Rate (60-100) 85 Pulse Location Monitor Respiratory Rate (12-18) 18 Respiratory rate source Observation Blood Pressure (90/60-120/80) 115/61 Blood Pressure Mean (mm Hg) 79 Source Monitor Position Semi-Fowlers Blood Pressure Location Left Arm History Since Last Visit- (Skip if this is Patient's initial visit) Have you changed medications since your No last visit? Any new allergies or adverse reactions No Had a fall/change in ADL's that may No increase risk of falls Signs or symptoms of abuse and/or No neglect since last visit Have you been in the hospital since your No last visit? Has dressing in place as prescribed Yes Has compression in place as prescribed No Has offloadiing in place as prescribed Yes Experienced any changes in pain level or No management Pain Scale: 0-10 Numeric Is Patient Pain Free? Yes - Nurse 1 - General Ulcer Measurement Start: 01/28/23 15:25 Freq: Status: Active Protocol: Activity Type Activity Date Activity User E-sign Co-sign Detail Recorded Client Recorded Date Recorded By Document 02/03/23 15:25 [id number] 02/03/23 15:33 RB 02/03/23 15:25 Wound Center Nurse 1 #1- sacral -Combined with other wound No -Current Size (cm) - Length 5 -Current Size (cm) - Width 2 -Current Size (cm) - Depth 5.8 -Total Square Cm 10 -Tunneling No -Undermining/Tunneling No -Circular Undermining No -Exudate Amt Large -Exudate Type Serosanguineous -Wound Margin Distinct, Outline Attached -Granulation Amt Medium (34-66%) -Granulation Quality [place] -Slough/Fibrin Yes -Necrosis Amt Medium (34-66%) -Necrotic Tissue Type Adherent Slough -Structure Exposed N/A -Texture (Neda-wound Skin Appearance) Assessed -Moisture (Neda-wound Skin Appearance) Assessed -Color (Neda-wound Skin Appearance) Assessed -Temperature (Neda-wound Skin No Abnormality Appearance) (Pt Warm) -Tenderness on Palpation (Neda-wound No Skin Appearance) -Ulcer Cleansing Wound Cleanser -Foul Odor after Cleansing No WC - Nurse 2 - General Ulcer CM Notes Start: 01/28/23 15:25 Freq: Status: Active Protocol: Activity Type Activity Date Activity User E-sign Co-sign Detail Recorded Client Recorded Date Recorded By Document 02/03/23 15:41 [id number] 02/03/23 15:45 02/03/23 15:41 Wound Center Nurse 2 -Time 15:42 -Correct Patient Yes -Correct Side, Site, Position Yes -Correct Procedure Yes -Procedure Performed Yes -Type of Procedure Debridement -Clinical Debridement Muscle / Fascia -Tissue Removed Muscle,Fascia -Post Debridement (cm) - Length 5.0 -Post Debridement (cm) - Width 2.0 -Post Debridement (cm) - Depth 5.4 -Total Square (Post) (cm) 10.00 -Area of Debridement (cm) - Length 5.0 -Area of Debridement (cm) - Width 2.0 -Total Square (Area) (cm) 10.00 -Tunneling No -Undermining/Tunneling No -Circular Undermining No -Wound/Ulcer Outcome Not Healed -Ulcer Cleansing Rinsed/ Irrigated with Saline -Foul Odor after Cleansing No -Bioengineered Tissue No -Bleeding Controlled with Pressure -Treatment Response Procedure Tolerated Well -Offloading No -Pressure Reduction Wheelchair cushion -Debridement - Muscle / Fascia, 1st Yes 20sq cm Pain Scale: 0-10 Numeric Is Patient Pain Free? Yes - Nurse 3 - General Ulcer D/C NN Start: 01/28/23 15:25 Freq: Status: Active Protocol: Activity Type Activity Date Activity User E-sign Co-sign Detail Recorded Client Recorded Date Recorded By Document 01/31/23 10:44 MAHESH [id number] 01/31/23 10:48 Document 02/03/23 16:02 KW [id number] 02/03/23 16:02 KW 01/31/23 02/03/23 10:44 16:02 Wound Care Center Nurse 3 #1- sacral -Ulcer Cleansing Rinsed/ Irrigated with Saline Pain Scale: 0-10 Numeric Is Patient Pain Free? Yes Yes WC - Visit Discharge Discharge Condition Stable Stable Ambulatory Status Wheelchair Wheelchair Transportation Private Auto Private Auto Medication Reconcilliation completed & Yes No provided to patient/care provider Clinical Summary of Care Provided Yes Yes Assessment/Plan Assessment/Plan (1) Sacral decubitus ulcer, stage IV: CODE(S): L89.154 - Pressure ulcer of sacral region, stage 4 (2) Osteomyelitis: CODE(S): M86.9 - Osteomyelitis, unspecified QUALIFIERS: Osteomyelitis location: other site Osteomyelitis type: other chronic Qualified Code(s): M86.68 - Other chronic osteomyelitis, other site (3) Immobility syndrome (paraplegic): CODE(S): M62.3 - Immobility syndrome (paraplegic) (4) Multiple sclerosis: CODE(S): G35 - Multiple sclerosis (5) Long-term current use of rituximab: CODE(S): Z79.620 - [employer]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 Kocuria kristinae in the bone is positive for osteomyelitis. It is significant and should be treated since it didn't show up in the soft tissue culture. She was placed on Augmentin per Infectious Diseases recommendation. She is finishing the Augmentin. On 10/30/22, it was 20.1. Encourage nutritional supplementation with protein to help the healing process. Last 2021 she had diagnosis of osteomyelitis. She was placed on IV antibiotics per Infectious Diseases for 6 weeks until January,. This is important because it establishes a timeline for chronic refractory osteomyelitis. She is a candidate for HBO Treatments. We have received insurance approval for the HBO treatments. Usual amount is 40-60 treatments. She had a CXR on 01/06/23. It showed no evidence of acute cardiopulmonary process. No evidence of congestive heart failure. No evidence pneumothorax. No focal infiltrates, consolidations, or effusions. I looked a in her ears with an otoscope at her last visit on 01/06/23. She had normal tympanic membranes. No bleeding was seen in the tympanic membranes. No fluid was seen behind the tympanic membranes. She has started the HBO treatments and is tolerating them thus far. Followup one week.
--- NOTE | 2023-02-04 15:08 | HBO.PN.PCM_ITS ---
History of Present Illness Date of Service: 02/04/23 Chief Complaint: Sacral pressure sore, Stage IV. History of Wound: Surgery 12/18/22 - Excision sacral pressure sore, Stage IV, with partial ostectomy for osteomyelitis. Wound care - VAC. Operative Culture - Corynebacterium striatum in the soft tissue and Kocuria kristinae in the bone. Was treated perioperatively with Augmentin and Flagyl for a preop culture positive for Enterococcus faecalis and Anaerobes. Kocuria kristinae in the bone is positive for osteomyelitis. It is significant and should be treated since it didn't show up in the soft tissue culture. She was placed on Augmentin for this. Pathology - Negative for acute osteomyelitis. Chronic reparative and reactive change. Prealbumin from 10/30/22 was 20.1. Encourage nutritional supplementation with protein to help the healing process. MRI Pelvis from 08/21/22 - 2.8 cm decubitus ulcer at the base of the coccyx without discrete evidence of osteomyelitis. Last 2021 she had diagnosis of osteomyelitis. She was placed on IV antibiotics per Infectious Diseases for 6 weeks until January,. This is important because it establishes a timeline for chronic refractory osteomyelitis. Subjective Subjective Today she presents for hyperbaric oxygen therapy session 5 of for treatment of chronic refractory osteomyelitis of her sacrum with stage 4 pressure ulcer. Hyperbaric oxygen therapy was administered as per the facility's protocol.? Hyperbaric oxygen therapy was administered at 2.0 LIONEL in 100% oxygen for 90 minutes without air breaks.? The patient tolerated hyperbaric oxygen therapy well, without complications or complaints. Upon emergence of the hyperbaric chamber, the patient's vital signs remained stable.? She was discharged in good condition. Objective Data Objective Data Vital Signs: Vital Signs Temp Pulse Resp BP 96.9 F L 85 18 115/61 02/03/23 15:25 02/03/23 15:25 02/03/23 15:25 02/03/23 15:25 Weight: 145 lb 9.6 oz Body Mass Index (BMI) 22.8 Exam Physical Exam Const alert, oriented x3 and no apparent distress HEENT EAC's normal and TM's normal bilaterally Resp normal respiratory effort, no use of accessory muscles and clear to auscultation bilaterally Effort and Inspection: able to speak in complete sentences Cardio regular rate and regular rhythm Psych mental status grossly normal, thought process normal, cooperative, affect normal and speech normal Assessment and Debridement #1- sacral: Debridement not Completed: No debridement was completed today Nursing Assessment and Debridement Post-Debridement Measurements and Additional Note: Post-Debridement Measurements/Treatment - Nurse 1 - General Ulcer Assessment Start: 01/28/23 15:25 Freq: Status: Active Protocol: BENIGNO Activity Type Activity Date Activity User E-sign Co-sign Detail Recorded Client Recorded Date Recorded By Document 02/03/23 15:25 GRIFFIN [id number] 02/03/23 15:33 RB 02/03/23 15:25 WC - Today's Visit Information Type of service Follow-up Visit (Physician/CONTRACT COORDINATOR ) Arrival Mode Wheelchair Transfer Assistance None Patient Identification Verified (Name & Yes ) Patient Requires Transmission-Based No Precautions Height and Weight Body Mass Index (BMI) 22.8 BMI Classification Normal Vital Signs Temperature (97.8 F-99.1 F) 96.9 F L Temperature Source Temporal Pulse Rate (60-100) 85 Pulse Location Monitor Respiratory Rate (12-18) 18 Respiratory rate source Observation Blood Pressure (90/60-120/80) 115/61 Blood Pressure Mean (mm Hg) 79 Source Monitor Position Semi-Fowlers Blood Pressure Location Left Arm History Since Last Visit- (Skip if this is Patient's initial visit) Have you changed medications since your No last visit? Any new allergies or adverse reactions No Had a fall/change in ADL's that may No increase risk of falls Signs or symptoms of abuse and/or No neglect since last visit Have you been in the hospital since your No last visit? Has dressing in place as prescribed Yes Has compression in place as prescribed No Has offloadiing in place as prescribed Yes Experienced any changes in pain level or No management Pain Scale: 0-10 Numeric Is Patient Pain Free? Yes - Nurse 1 - General Ulcer Measurement Start: 01/28/23 15:25 Freq: Status: Active Protocol: Activity Type Activity Date Activity User E-sign Co-sign Detail Recorded Client Recorded Date Recorded By Document 02/03/23 15:25 GRIFFIN [id number] 02/03/23 15:33 RB 02/03/23 15:25 Wound Center Nurse 1 #1- sacral -Combined with other wound No -Current Size (cm) - Length 5 -Current Size (cm) - Width 2 -Current Size (cm) - Depth 5.8 -Total Square Cm 10 -Tunneling No -Undermining/Tunneling No -Circular Undermining No -Exudate Amt Large -Exudate Type Serosanguineous -Wound Margin Distinct, Outline Attached -Granulation Amt Medium (34-66%) -Granulation Quality [place] -Slough/Fibrin Yes -Necrosis Amt Medium (34-66%) -Necrotic Tissue Type Adherent Slough -Structure Exposed N/A -Texture (Neda-wound Skin Appearance) Assessed -Moisture (Neda-wound Skin Appearance) Assessed -Color (Neda-wound Skin Appearance) Assessed -Temperature (Neda-wound Skin No Abnormality Appearance) (Pt Warm) -Tenderness on Palpation (Neda-wound No Skin Appearance) -Ulcer Cleansing Wound Cleanser -Foul Odor after Cleansing No WC - Nurse 2 - General Ulcer CM Notes Start: 01/28/23 15:25 Freq: Status: Active Protocol: Activity Type Activity Date Activity User E-sign Co-sign Detail Recorded Client Recorded Date Recorded By Document 02/03/23 15:41 MAHESH [id number] 02/03/23 15:45 MAHESH 02/03/23 15:41 Wound Center Nurse 2 -Time 15:42 -Correct Patient Yes -Correct Side, Site, Position Yes -Correct Procedure Yes -Procedure Performed Yes -Type of Procedure Debridement -Clinical Debridement Muscle / Fascia -Tissue Removed Muscle,Fascia -Post Debridement (cm) - Length 5.0 -Post Debridement (cm) - Width 2.0 -Post Debridement (cm) - Depth 5.4 -Total Square (Post) (cm) 10.00 -Area of Debridement (cm) - Length 5.0 -Area of Debridement (cm) - Width 2.0 -Total Square (Area) (cm) 10.00 -Tunneling No -Undermining/Tunneling No -Circular Undermining No -Wound/Ulcer Outcome Not Healed -Ulcer Cleansing Rinsed/ Irrigated with Saline -Foul Odor after Cleansing No -Bioengineered Tissue No -Bleeding Controlled with Pressure -Treatment Response Procedure Tolerated Well -Offloading No -Pressure Reduction Wheelchair cushion -Debridement - Muscle / Fascia, 1st Yes 20sq cm Pain Scale: 0-10 Numeric Is Patient Pain Free? Yes WC - Nurse 3 - General Ulcer D/C NN Start: 01/28/23 15:25 Freq: Status: Active Protocol: Activity Type Activity Date Activity User E-sign Co-sign Detail Recorded Client Recorded Date Recorded By Document 02/03/23 16:02 KALI [id number] 02/03/23 16:02 KALI 02/03/23 16:02 Wound Care Center Nurse 3 #1- sacral -Ulcer Cleansing Rinsed/ Irrigated with Saline Pain Scale: 0-10 Numeric Is Patient Pain Free? Yes WC - Visit Discharge Discharge Condition Stable Ambulatory Status Wheelchair Transportation Private Auto Medication Reconcilliation completed & No provided to patient/care provider Clinical Summary of Care Provided Yes Charges/Coding Wound Center CF Procedures HBO Supervision: [id number] Hyperbaric Oxygen; supervision Assessment/Plan Assessment/Plan (1) Osteomyelitis: CODE(S): M86.9 - Osteomyelitis, unspecified QUALIFIERS: Osteomyelitis type: other chronic Osteomyelitis location: other site Qualified Code(s): M86.68 - Other chronic osteomyelitis, other site (2) Sacral decubitus ulcer, stage IV: CODE(S): L89.154 - Pressure ulcer of sacral region, stage 4 PLAN: Plan She is tolerating and benefiting from hyperbaric oxygen therapy which will be continued per the patient's medical plan.
[2023-02-04 15:09] VITALS: BP 102/60; BP 106/63; PULSE 65; PULSE 95; RESP 18; TEMP 36.2; TEMP 36.3
[2023-02-05 15:25] VITALS: BP 102/63; BP 138/61; PULSE 61; PULSE 88; RESP 18; TEMP 35.9; TEMP 36.2
--- NOTE | 2023-02-05 18:01 | HBO.PN.PCM_ITS ---
History of Present Illness Date of Service: 02/05/23 Chief Complaint: Sacral pressure sore, Stage IV. History of Wound: Surgery 12/18/22 - Excision sacral pressure sore, Stage IV, with partial ostectomy for osteomyelitis. Wound care - VAC. Operative Culture - Corynebacterium striatum in the soft tissue and Kocuria kristinae in the bone. Was treated perioperatively with Augmentin and Flagyl for a preop culture positive for Enterococcus faecalis and Anaerobes. Kocuria kristinae in the bone is positive for osteomyelitis. It is significant and should be treated since it didn't show up in the soft tissue culture. She was placed on Augmentin for this. Pathology - Negative for acute osteomyelitis. Chronic reparative and reactive change. Prealbumin from 10/30/22 was 20.1. Encourage nutritional supplementation with protein to help the healing process. MRI Pelvis from 08/21/22 - 2.8 cm decubitus ulcer at the base of the coccyx without discrete evidence of osteomyelitis. Last 2021 she had diagnosis of osteomyelitis. She was placed on IV antibiotics per Infectious Diseases for 6 weeks until January,. This is important because it establishes a timeline for chronic refractory osteomyelitis. 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 Hyperbaric oxygen therapy was administered as per the facility's protocol.? Hyperbaric oxygen therapy was administered at 2.0 LIONEL in 100% oxygen for 90 minutes without air breaks.? The patient tolerated hyperbaric oxygen therapy well, without complications or complaints. Upon emergence of the hyperbaric chamber, the patient's vital signs remained stable.? She was discharged in good condition. Objective Data Objective Data Vital Signs: Vital Signs Temp Pulse Resp BP 96.6 F L 61 18 102/63 02/05/23 15:25 02/05/23 15:25 02/05/23 15:25 02/05/23 15:25 Weight: 145 lb 9.6 oz Body Mass Index (BMI) 22.8 Exam Physical Exam Const alert, oriented x3 and no apparent distress HEENT EAC's normal and TM's normal bilaterally Resp normal respiratory effort, no use of accessory muscles and clear to auscultation bilaterally Effort and Inspection: able to speak in complete sentences Cardio regular rate and regular rhythm Psych mental status grossly normal, thought process normal, cooperative, affect normal and speech normal Assessment and Debridement #1- sacral: Debridement not Completed: No debridement was completed today Nursing Assessment and Debridement Post-Debridement Measurements and Additional Note: Post-Debridement Measurements/Treatment - Nurse 1 - General Ulcer Assessment Start: 01/28/23 15:25 Freq: Status: Active Protocol: BENIGNO Activity Type Activity Date Activity User E-sign Co-sign Detail Recorded Client Recorded Date Recorded By Document 02/03/23 15:25 GRIFFIN [id number] 02/03/23 15:33 RB 02/03/23 15:25 WC - Today's Visit Information Type of service Follow-up Visit (Physician/INDIAN TRADER ) Arrival Mode Wheelchair Transfer Assistance None Patient Identification Verified (Name & Yes ) Patient Requires Transmission-Based No Precautions Height and Weight Body Mass Index (BMI) 22.8 BMI Classification Normal Vital Signs Temperature (97.8 F-99.1 F) 96.9 F L Temperature Source Temporal Pulse Rate (60-100) 85 Pulse Location Monitor Respiratory Rate (12-18) 18 Respiratory rate source Observation Blood Pressure (90/60-120/80) 115/61 Blood Pressure Mean (mm Hg) 79 Source Monitor Position Semi-Fowlers Blood Pressure Location Left Arm History Since Last Visit- (Skip if this is Patient's initial visit) Have you changed medications since your No last visit? Any new allergies or adverse reactions No Had a fall/change in ADL's that may No increase risk of falls Signs or symptoms of abuse and/or No neglect since last visit Have you been in the hospital since your No last visit? Has dressing in place as prescribed Yes Has compression in place as prescribed No Has offloadiing in place as prescribed Yes Experienced any changes in pain level or No management Pain Scale: 0-10 Numeric Is Patient Pain Free? Yes - Nurse 1 - General Ulcer Measurement Start: 01/28/23 15:25 Freq: Status: Active Protocol: Activity Type Activity Date Activity User E-sign Co-sign Detail Recorded Client Recorded Date Recorded By Document 02/03/23 15:25 GRIFFIN [id number] 02/03/23 15:33 RB 02/03/23 15:25 Wound Center Nurse 1 #1- sacral -Combined with other wound No -Current Size (cm) - Length 5 -Current Size (cm) - Width 2 -Current Size (cm) - Depth 5.8 -Total Square Cm 10 -Tunneling No -Undermining/Tunneling No -Circular Undermining No -Exudate Amt Large -Exudate Type Serosanguineous -Wound Margin Distinct, Outline Attached -Granulation Amt Medium (34-66%) -Granulation Quality [place] -Slough/Fibrin Yes -Necrosis Amt Medium (34-66%) -Necrotic Tissue Type Adherent Slough -Structure Exposed N/A -Texture (Neda-wound Skin Appearance) Assessed -Moisture (Neda-wound Skin Appearance) Assessed -Color (Neda-wound Skin Appearance) Assessed -Temperature (Neda-wound Skin No Abnormality Appearance) (Pt Warm) -Tenderness on Palpation (Neda-wound No Skin Appearance) -Ulcer Cleansing Wound Cleanser -Foul Odor after Cleansing No WC - Nurse 2 - General Ulcer CM Notes Start: 01/28/23 15:25 Freq: Status: Active Protocol: Activity Type Activity Date Activity User E-sign Co-sign Detail Recorded Client Recorded Date Recorded By Document 02/03/23 15:41 MAHESH [id number] 02/03/23 15:45 MAHESH 02/03/23 15:41 Wound Center Nurse 2 -Time 15:42 -Correct Patient Yes -Correct Side, Site, Position Yes -Correct Procedure Yes -Procedure Performed Yes -Type of Procedure Debridement -Clinical Debridement Muscle / Fascia -Tissue Removed Muscle,Fascia -Post Debridement (cm) - Length 5.0 -Post Debridement (cm) - Width 2.0 -Post Debridement (cm) - Depth 5.4 -Total Square (Post) (cm) 10.00 -Area of Debridement (cm) - Length 5.0 -Area of Debridement (cm) - Width 2.0 -Total Square (Area) (cm) 10.00 -Tunneling No -Undermining/Tunneling No -Circular Undermining No -Wound/Ulcer Outcome Not Healed -Ulcer Cleansing Rinsed/ Irrigated with Saline -Foul Odor after Cleansing No -Bioengineered Tissue No -Bleeding Controlled with Pressure -Treatment Response Procedure Tolerated Well -Offloading No -Pressure Reduction Wheelchair cushion -Debridement - Muscle / Fascia, 1st Yes 20sq cm Pain Scale: 0-10 Numeric Is Patient Pain Free? Yes WC - Nurse 3 - General Ulcer D/C NN Start: 01/28/23 15:25 Freq: Status: Active Protocol: Activity Type Activity Date Activity User E-sign Co-sign Detail Recorded Client Recorded Date Recorded By Document 02/03/23 16:02 KALI [id number] 02/03/23 16:02 KALI 02/03/23 16:02 Wound Care Center Nurse 3 #1- sacral -Ulcer Cleansing Rinsed/ Irrigated with Saline Pain Scale: 0-10 Numeric Is Patient Pain Free? Yes WC - Visit Discharge Discharge Condition Stable Ambulatory Status Wheelchair Transportation Private Auto Medication Reconcilliation completed & No provided to patient/care provider Clinical Summary of Care Provided Yes Charges/Coding Wound Center CF Procedures HBO Supervision: [id number] Hyperbaric Oxygen; supervision Assessment/Plan Assessment/Plan (1) Osteomyelitis: CODE(S): M86.9 - Osteomyelitis, unspecified QUALIFIERS: Osteomyelitis type: other chronic Osteomyelitis location: other site Qualified Code(s): M86.68 - Other chronic osteomyelitis, other site (2) Sacral decubitus ulcer, stage IV: CODE(S): L89.154 - Pressure ulcer of sacral region, stage 4 PLAN: Plan She is tolerating and benefiting from hyperbaric oxygen therapy which will be continued per the patient's medical plan.
[2023-02-06 13:51] VITALS: BP 103/45; BP 106/63; PULSE 72; RESP 18; TEMP 36.1; TEMP 36.2
--- NOTE | 2023-02-06 16:42 | HBO.PN.PCM_ITS ---
History of Present Illness Date of Service: 02/06/23 Chief Complaint: Sacral pressure sore, Stage IV. History of Wound: Surgery 12/18/22 - Excision sacral pressure sore, Stage IV, with partial ostectomy for osteomyelitis. Wound care - VAC. Operative Culture - Corynebacterium striatum in the soft tissue and Kocuria kristinae in the bone. Was treated perioperatively with Augmentin and Flagyl for a preop culture positive for Enterococcus faecalis and Anaerobes. Kocuria kristinae in the bone is positive for osteomyelitis. It is significant and should be treated since it didn't show up in the soft tissue culture. She was placed on Augmentin and is finishing them. Pathology - Negative for acute osteomyelitis. Chronic reparative and reactive change. Prealbumin from 10/30/22 was 20.1. Encourage nutritional supplementation with protein to help the healing process. MRI Pelvis from 08/21/22 - 2.8 cm decubitus ulcer at the base of the coccyx without discrete evidence of osteomyelitis. Last 2021 she had diagnosis of osteomyelitis. She was placed on IV antibiotics per Infectious Diseases for 6 weeks until January,. This is important because it establishes a timeline for chronic refractory osteomyelitis. Progress of Wound: Slight improvement. More granulation tissue covering the bone. 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 Hyperbaric oxygen therapy was administered as per the facility's protocol.? Hy perbaric oxygen therapy was administered at 2.0 LIONEL in 100% oxygen for 90 minutes without air breaks.? The patient tolerated hyperbaric oxygen therapy well, without complications or complaints. Upon emergence of the hyperbaric chamber, the patient's vital signs remained stable.? She was discharged in good condition. Objective Data Objective Data Vital Signs: Vital Signs Temp Pulse Resp BP 97.2 F L 72 18 106/63 02/06/23 13:51 02/06/23 13:51 02/06/23 13:51 02/06/23 13:51 Weight: 145 lb 9.6 oz Body Mass Index (BMI) 22.8 Exam Physical Exam Const alert, oriented x3 and no apparent distress HEENT EAC's normal and TM's normal bilaterally Resp normal respiratory effort, no use of accessory muscles and clear to auscultation bilaterally Effort and Inspection: able to speak in complete sentences Cardio regular rate and regular rhythm Psych mental status grossly normal, thought process normal, cooperative, affect normal and speech normal Assessment and Debridement #1- sacral: Debridement not Completed: No debridement was completed today Charges/Coding Wound Center CF Procedures HBO Supervision: [id number] Hyperbaric Oxygen; supervision Assessment/Plan Assessment/Plan (1) Osteomyelitis: CODE(S): M86.9 - Osteomyelitis, unspecified QUALIFIERS: Osteomyelitis type: other chronic Osteomyelitis location: other site Qualified Code(s): M86.68 - Other chronic osteomyelitis, other site (2) Sacral decubitus ulcer, stage IV: CODE(S): L89.154 - Pressure ulcer of sacral region, stage 4 PLAN: Plan She is tolerating and benefiting from hyperbaric oxygen therapy which will be continued per the patient's medical plan.
[2023-02-07 10:39] VITALS: BP 104/63; BP 108/67; PULSE 62; PULSE 75; RESP 16; TEMP 35.8; TEMP 36.1
--- NOTE | 2023-02-07 13:28 | HBO.PN.PCM_ITS ---
History of Present Illness Date of Service: 02/07/23 Chief Complaint: Sacral pressure sore, Stage IV. History of Wound: Surgery 12/18/22 - Excision sacral pressure sore, Stage IV, with partial ostectomy for osteomyelitis. Wound care - VAC. Operative Culture - Corynebacterium striatum in the soft tissue and Kocuria kristinae in the bone. Was treated perioperatively with Augmentin and Flagyl for a preop culture positive for Enterococcus faecalis and Anaerobes. Kocuria kristinae in the bone is positive for osteomyelitis. It is significant and should be treated since it didn't show up in the soft tissue culture. She was placed on Augmentin and is finishing them. Pathology - Negative for acute osteomyelitis. Chronic reparative and reactive change. Prealbumin from 10/30/22 was 20.1. Encourage nutritional supplementation with protein to help the healing process. MRI Pelvis from 08/21/22 - 2.8 cm decubitus ulcer at the base of the coccyx without discrete evidence of osteomyelitis. Last 2021 she had diagnosis of osteomyelitis. She was placed on IV antibiotics per Infectious Diseases for 6 weeks until January,. This is important because it establishes a timeline for chronic refractory osteomyelitis. Progress of Wound: Slight improvement. More granulation tissue covering the bone. 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 Hyperbaric oxygen therapy was administered as per the facility's protocol.? Hy perbaric oxygen therapy was administered at 2.0 LIONEL in 100% oxygen for 90 minutes without air breaks.? The patient tolerated hyperbaric oxygen therapy well, without complications or complaints. Upon emergence of the hyperbaric chamber, the patient's vital signs remained stable.? She was discharged in good condition. Objective Data Objective Data Vital Signs: Vital Signs Temp Pulse Resp BP 96.4 F L 75 16 108/67 02/07/23 10:39 02/07/23 10:39 02/07/23 10:39 02/07/23 10:39 Weight: 66.043 kg Body Mass Index (BMI) 22.8 Exam Physical Exam Const alert, oriented x3 and no apparent distress HEENT EAC's normal and TM's normal bilaterally Psych mental status grossly normal, thought process normal, cooperative, affect normal and speech normal Assessment and Debridement #1- sacral: Debridement not Completed: No debridement was completed today Nursing Assessment and Debridement Post-Debridement Measurements and Additional Note: Post-Debridement Measurements/Treatment WC - Nurse 3 - General Ulcer D/C NN Start: 01/28/23 15:25 Freq: Status: Active Protocol: Activity Type Activity Date Activity User E-sign Co-sign Detail Recorded Client Recorded Date Recorded By Document 02/07/23 10:39 [id number] 02/07/23 10:44 02/07/23 10:39 Pain Scale: 0-10 Numeric Is Patient Pain Free? Yes WC - Visit Discharge Discharge Condition Stable Ambulatory Status Wheelchair Transportation Private Auto Medication Reconcilliation completed & Yes provided to patient/care provider Clinical Summary of Care Provided Yes Notes: N complaints before, during and after treatment today . Assessment/Plan Assessment/Plan (1) Osteomyelitis: CODE(S): M86.9 - Osteomyelitis, unspecified QUALIFIERS: Osteomyelitis type: other chronic Osteomyelitis location: other site Qualified Code(s): M86.68 - Other chronic osteomyelitis, other site (2) Sacral decubitus ulcer, stage IV: CODE(S): L89.154 - Pressure ulcer of sacral region, stage 4 PLAN: Plan She is tolerating and benefiting from hyperbaric oxygen therapy which will be continued per the patient's medical plan.
--- NOTE | 2023-02-10 13:04 | HBO.PN.PCM_ITS ---
History of Present Illness Date of Service: 02/10/23 Chief Complaint: Sacral pressure sore, Stage IV. History of Wound: Surgery 12/18/22 - Excision sacral pressure sore, Stage IV, with partial ostectomy for osteomyelitis. Wound care - VAC. Operative Culture - Corynebacterium striatum in the soft tissue and Kocuria kristinae in the bone. Was treated perioperatively with Augmentin and Flagyl for a preop culture positive for Enterococcus faecalis and Anaerobes. Kocuria kristinae in the bone is positive for osteomyelitis. It is significant and should be treated since it didn't show up in the soft tissue culture. She was placed on Augmentin and is finishing them. Pathology - Negative for acute osteomyelitis. Chronic reparative and reactive change. Prealbumin from 10/30/22 was 20.1. Encourage nutritional supplementation with protein to help the healing process. MRI Pelvis from 08/21/22 - 2.8 cm decubitus ulcer at the base of the coccyx without discrete evidence of osteomyelitis. Last 2021 she had diagnosis of osteomyelitis. She was placed on IV antibiotics per Infectious Diseases for 6 weeks until January,. This is important because it establishes a timeline for chronic refractory osteomyelitis. Progress of Wound: Slight improvement. More granulation tissue covering the bone. 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 Hyperbaric oxygen therapy was administered as per the facility's protocol.? Hy perbaric oxygen therapy was administered at 2.0 LIONEL in 100% oxygen for 90 minutes without air breaks.? The patient tolerated hyperbaric oxygen therapy well, without complications or complaints. Upon emergence of the hyperbaric chamber, the patient's vital signs remained stable.? She was discharged in good condition. Objective Data Objective Data Vital Signs: Vital Signs Temp Pulse Resp BP 96.4 F L 75 16 108/67 02/07/23 10:39 02/07/23 10:39 02/07/23 10:39 02/07/23 10:39 Weight: 145 lb 9.6 oz Body Mass Index (BMI) 22.8 Exam Physical Exam Const alert, oriented x3 and no apparent distress HEENT EAC's normal and TM's normal bilaterally Psych mental status grossly normal, thought process normal, cooperative, affect normal and speech normal Assessment and Debridement #1- sacral: Debridement not Completed: No debridement was completed today Assessment/Plan Assessment/Plan (1) Osteomyelitis: CODE(S): M86.9 - Osteomyelitis, unspecified QUALIFIERS: Osteomyelitis location: other site Osteomyelitis type: other chronic Qualified Code(s): M86.68 - Other chronic osteomyelitis, other site (2) Sacral decubitus ulcer, stage IV: CODE(S): L89.154 - Pressure ulcer of sacral region, stage 4 PLAN: Plan She is tolerating and benefiting from hyperbaric oxygen therapy which will be continued per the patient's medical plan.
[2023-02-10 15:17] VITALS: BMI 22.8
[2023-02-10 15:19] VITALS: BP 114/63; BP 121/58; PULSE 66; PULSE 89; RESP 18; TEMP 35.7; TEMP 35.9
--- NOTE | 2023-02-10 16:45 | PCM.WC.PN ---
History of Present Illness Date of Service: 02/10/23 Chief Complaint: Sacral pressure sore, Stage IV. History of Wound: Surgery 12/18/22 - Excision sacral pressure sore, Stage IV, with partial ostectomy for osteomyelitis. Wound care - VAC. Operative Culture - Corynebacterium striatum in the soft tissue and Kocuria kristinae in the bone. Was treated perioperatively with Augmentin and Flagyl for a preop culture positive for Enterococcus faecalis and Anaerobes. Kocuria kristinae in the bone is positive for osteomyelitis. It is significant and should be treated since it didn't show up in the soft tissue culture. She was placed on Augmentin and is finishing them. Pathology - Negative for acute osteomyelitis. Chronic reparative and reactive change. Prealbumin from 10/30/22 was 20.1. Encourage nutritional supplementation with protein to help the healing process. MRI Pelvis from 08/21/22 - 2.8 cm decubitus ulcer at the base of the coccyx without discrete evidence of osteomyelitis. Last 2021 she had diagnosis of osteomyelitis. She was placed on IV antibiotics per Infectious Diseases for 6 weeks until January,. This is important because it establishes a timeline for chronic refractory osteomyelitis. Progress of Wound: There are areas of bone still exposed. Overall smaller in size, base of ulcer is beefy pink. She is complaining of not feeling well and her urine being cloudy, which is new from yesterday. She has increased frequency. She needs to straight cath to void. No back pain (but she doesn't have feeling in her lower back) and no lower abdominal pain. Objective Data Objective Data Vital Signs: Vital Signs Temp Pulse Resp BP 96.2 F L 89 18 121/58 H 02/10/23 15:19 02/10/23 15:19 02/10/23 15:19 02/10/23 15:19 Weight: 145 lb 9.6 oz Body Mass Index (BMI) 22.8 Charges/Coding Visit Charges Office Visits / Consults: [id number] OV L3 Est (24 modifier for urinary symptoms) Physical Exam Const alert and oriented x3 General Appearance: cooperative HEENT normocephalic Head and Scalp: atraumatic Resp normal respiratory effort Effort and Inspection: able to speak in complete sentences Cardio regular rate GI non-tender Palpation: soft Extremity normal capillary refill Skin Wound Narrative: Sacral ulcer is smaller in size, wound bed is beefy pink, it is into the muscle. There are a few small areas where bone is still exposed. Neda wound is clear. Neuro CN's II-XII intact bilaterally Psych affect normal Debridement Note Debridement Note Wound debrided: #1 Sacral area. Laterality: Not Applicable Wound Grade/Stage: IV. Type of Debridement: Excisional debridement Anesthesia Used: 4% Lidocaine Solution and 5% Lidocaine Gel Depth: Down to and including healthy tissue, in the subcutaneous layer, to muscle and to bone (bone is exposed but not debrided.) Percentage of wound debrided: 100 Instrument Used: 7mm curette Tissue Removed: subcutaneous tissue and muscle. Severity: Fat Layer Exposed (muscle is exposed. bone is exposed but not debrided.) Amount of bleeding with debridement: Mild Bleeding Controlled with: Pressure and Compression and gauze Patient tolerated procedure: Patient tolerated procedure well Post-Debridement Measurements and Additional Note: Post-Debridement Measurements/Treatment - Nurse 1 - General Ulcer Assessment Start: 01/28/23 15:25 Freq: Status: Active Protocol: BENIGNO Activity Type Activity Date Activity User E-sign Co-sign Detail Recorded Client Recorded Date Recorded By Document 02/03/23 15:25 [id number] 02/03/23 15:33 RB Document 02/10/23 15:17 [facility] Desktop 02/10/23 15:26 [facility] 02/03/23 02/10/23 15:25 15:17 - Today's Visit Information Type of service Follow-up Visit Follow-up Visit (Physician/CONVENTION SERVICES DIRECTOR (Physician/CONVENTION SERVICES DIRECTOR ) ) Arrival Mode Wheelchair Wheelchair Transfer Assistance None Transfer Board Transfer Assist (Other) 1 Patient Identification Verified (Name & Yes Yes ) Patient Requires Transmission-Based No No Precautions Height and Weight Body Mass Index (BMI) 22.8 22.8 BMI Classification Normal Normal Vital Signs Temperature (97.8 F-99.1 F) 96.9 F L Temperature Source Temporal Pulse Rate (60-100) 85 Pulse Location Monitor Respiratory Rate (12-18) 18 Respiratory rate source Observation Blood Pressure (90/60-120/80) 115/61 Blood Pressure Mean (mm Hg) 79 Source Monitor Position Semi-Fowlers Blood Pressure Location Left Arm Comment VITALS OBTAINED IN HBO PRIOR TO VISIT History Since Last Visit- (Skip if this is Patient's initial visit) Have you changed medications since your No No last visit? Any new allergies or adverse reactions No No Had a fall/change in ADL's that may No No increase risk of falls Signs or symptoms of abuse and/or No No neglect since last visit Have you been in the hospital since your No No last visit? Has dressing in place as prescribed Yes Yes Has compression in place as prescribed No N/A Has offloadiing in place as prescribed Yes N/A Experienced any changes in pain level or No No management Left Footwear Regular Shoe Right Footwear Regular Shoe Pain Scale: 0-10 Numeric Is Patient Pain Free? Yes Yes WC - Nurse 1 - General Ulcer Measurement Start: 01/28/23 15:25 Freq: Status: Active Protocol: Activity Type Activity Date Activity User E-sign Co-sign Detail Recorded Client Recorded Date Recorded By Document 02/03/23 15:25 RB [id number] 02/03/23 15:33 RB Document 02/10/23 15:17 [facility] Desktop 02/10/23 15:26 BMF 02/03/23 02/10/23 15:25 15:17 Wound Center Nurse 1 #1- sacral -Combined with other wound No No -Current Size (cm) - Length 5 5.5 -Current Size (cm) - Width 2 1 -Current Size (cm) - Depth 5.8 5.7 -Total Square Cm 10 5.5 -Photo Taken No -Epithelialization Small 1-33% -Tunneling No -Undermining/Tunneling No -Circular Undermining No -Exudate Amt Large Large -Exudate Type Serosanguineous Serosanguineous -Wound Margin Distinct, Distinct, Outline Outline Attached Attached -Granulation Amt Medium (34-66%) Large (67-100%) -Granulation Quality [place] Red -Slough/Fibrin Yes No -Necrosis Amt Medium (34-66%) None Present (0 %) -Necrotic Tissue Type Adherent Slough -Structure Exposed N/A -Texture (Neda-wound Skin Appearance) Assessed Assessed, Scarring -Moisture (Neda-wound Skin Appearance) Assessed Assessed -Color (Neda-wound Skin Appearance) Assessed Assessed -Temperature (Neda-wound Skin No Abnormality No Abnormality Appearance) (Pt Warm) (Pt Warm) -Tenderness on Palpation (Neda-wound No No Skin Appearance) -Ulcer Cleansing Wound Cleanser Rinsed/ Irrigated with Saline -Foul Odor after Cleansing No No WC - Nurse 2 - General Ulcer CM Notes Start: 01/28/23 15:25 Freq: Status: Active Protocol: Activity Type Activity Date Activity User E-sign Co-sign Detail Recorded Client Recorded Date Recorded By Document 02/03/23 15:41 [id number] 02/03/23 15:45 Document 02/10/23 15:38 Desktop 02/10/23 15:44 02/03/23 02/10/23 15:41 15:38 Wound Center Nurse 2 #1- sacral -Time 15:42 15:39 -Correct Patient Yes Yes -Correct Side, Site, Position Yes Yes -Correct Procedure Yes Yes -Procedure Performed Yes Yes -Type of Procedure Debridement Debridement -Clinical Debridement Muscle / Fascia Muscle / Fascia -Tissue Removed Muscle,Fascia Muscle,Fascia -Post Debridement (cm) - Length 5.0 5.4 -Post Debridement (cm) - Width 2.0 1.0 -Post Debridement (cm) - Depth 5.4 3.5 -Total Square (Post) (cm) 10.00 5.40 -Area of Debridement (cm) - Length 5.0 5.4 -Area of Debridement (cm) - Width 2.0 1.0 -Total Square (Area) (cm) 10.00 5.40 -Tunneling No No -Undermining/Tunneling No No -Circular Undermining No No -Wound/Ulcer Outcome Not Healed Not Healed -Ulcer Cleansing Rinsed/ Rinsed/ Irrigated with Irrigated with Saline Saline -Foul Odor after Cleansing No No -Bioengineered Tissue No No -Bleeding Controlled with Pressure Pressure -Treatment Response Procedure Procedure Tolerated Well Tolerated Well -Offloading No No -Pressure Reduction Wheelchair Wheelchair cushion cushion -Debridement - Muscle / Fascia, 1st Yes Yes 20sq cm Pain Scale: 0-10 Numeric Is Patient Pain Free? Yes Yes WC - Nurse 3 - General Ulcer D/C NN Start: 01/28/23 15:25 Freq: Status: Active Protocol: Activity Type Activity Date Activity User E-sign Co-sign Detail Recorded Client Recorded Date Recorded By Document 01/31/23 10:44 [email or web address] [id number] 01/31/23 10:48 Document 02/03/23 16:02 [id number] 02/03/23 16:02 Document 02/07/23 10:39 [id number] 02/07/23 10:44 Document 02/10/23 16:03 [facility] Desktop 02/10/23 16:03 [facility] 01/31/23 02/03/23 02/07/23 10:44 16:02 10:39 Wound Care Center Nurse 3 #1- sacral -Ulcer Cleansing Rinsed/ Irrigated with Saline -Foul Odor after Cleansing -Negative Pressure Wound Therapy -Setting (mmHg) -Negative Pressure is -NPWT Application Charge Treatment Response Pain Scale: 0-10 Numeric Is Patient Pain Free? Yes Yes Yes WC - Visit Discharge Discharge Condition Stable Stable Stable Ambulatory Status Wheelchair Wheelchair Wheelchair Transportation Private Auto Private Auto Private Auto Medication Reconcilliation completed & Yes No Yes provided to patient/care provider Clinical Summary of Care Provided Yes Yes Yes Notes: N complaints before, during and after treatment today . 02/10/23 16:03 Wound Care Center Nurse 3 #1- sacral -Ulcer Cleansing Rinsed/ Irrigated with Saline -Foul Odor after Cleansing No -Negative Pressure Wound Therapy Continue -Setting (mmHg) 150 -Negative Pressure is Continuous -NPWT Application Charge NPWT & Debridement (nc ) Treatment Response Procedure Tolerated Well Pain Scale: 0-10 Numeric Is Patient Pain Free? Yes WC - Visit Discharge Discharge Condition Stable Ambulatory Status Wheelchair Transportation Private Auto Medication Reconcilliation completed & provided to patient/care provider Clinical Summary of Care Provided Notes: Assessment/Plan Assessment/Plan (1) Osteomyelitis: CODE(S): M86.9 - Osteomyelitis, unspecified QUALIFIERS: Osteomyelitis type: other chronic Osteomyelitis location: other site Qualified Code(s): M86.68 - Other chronic osteomyelitis, other site (2) Sacral decubitus ulcer, stage IV: CODE(S): L89.154 - Pressure ulcer of sacral region, stage 4 (3) Immobility syndrome (paraplegic): CODE(S): M62.3 - Immobility syndrome (paraplegic) (4) Multiple sclerosis: CODE(S): G35 - Multiple sclerosis (5) Long-term current use of rituximab: CODE(S): Z79.620 - termination clerk (current) use of immunosuppressive biologic (6) Former smoker: CODE(S): Z87.891 - Personal history of nicotine dependence (7) Urinary urgency: CODE(S): R39.15 - Urgency of urination PLAN: Plan Continue the VAC at 150 mmHg. Kocuria sherlyistinae in the bone is positive for osteomyelitis. It is significant and should be treated since it didn't show up in the soft tissue culture. She was placed on Augmentin per Infectious Diseases recommendation. She just completed the Augmentin. On 10/30/22, it was 20.1. Encourage nutritional supplementation with protein to help the healing process. Last 2021 she had diagnosis of osteomyelitis. She was placed on IV antibiotics per Infectious Diseases for 6 weeks until January,. This is important because it establishes a timeline for chronic refractory osteomyelitis. She is a candidate for HBO Treatments. We have received insurance approval for the HBO treatments. Usual amount is 40-60 treatments. She had a CXR on 01/06/23. It showed no evidence of acute cardiopulmonary process. No evidence of congestive heart failure. No evidence pneumothorax. No focal infiltrates, consolidations, or effusions. I looked a in her ears with an otoscope at her last visit on 01/06/23. She had normal tympanic membranes. No bleeding was seen in the tympanic membranes. No fluid was seen behind the tympanic membranes. She has started the HBO treatments and is tolerating them thus far. She is having urinary urgency and has noticed her urine is cloudy with a strong odor which is new since yesterday. She uses a straight cath, so we will obtain a sample and send it in for UA and C&S. I will start her on Cipro twice daily. Once the sensitivities come back, I may need to change the antibiotic. Instructed her that if she starts to develop fevers, chills, nausea, vomiting or worsening symptoms, then she needs to go see PCP or go to ED. She verbalized understanding. Followup two weeks due having a class next week.
[2023-02-10 17:38] LABS: Color, Urine Yellow (Yellow); Glucose, Dipstick Normal (Normal); Ketone-Dipstick Negative (Negative); Leukocyte Esterase-Dipstick 500 /ul (Negative); Nitrite-Dipstick Negative (Negative); Occult Blood-Urine 25 /ul (Negative); Protein-Dipstick 15 mg/dl (Negative); Urine Bilirubin Dipstick Negative (Negative); Urine Clarity Sl. Cloudy (Clear); Urine Urobilinogen Normal (Normal)
--- NOTE | 2023-02-11 12:52 | HBO.PN.PCM_ITS ---
History of Present Illness Chief Complaint: Sacral pressure sore, Stage IV. History of Wound: Surgery 12/18/22 - Excision sacral pressure sore, Stage IV, with partial ostectomy for osteomyelitis. Wound care - VAC. Operative Culture - Corynebacterium striatum in the soft tissue and Kocuria kristinae in the bone. Was treated perioperatively with Augmentin and Flagyl for a preop culture positive for Enterococcus faecalis and Anaerobes. Kocuria kristinae in the bone is positive for osteomyelitis. It is significant and should be treated since it didn't show up in the soft tissue culture. She was placed on Augmentin and is finishing them. Pathology - Negative for acute osteomyelitis. Chronic reparative and reactive change. Prealbumin from 10/30/22 was 20.1. Encourage nutritional supplementation with protein to help the healing process. MRI Pelvis from 08/21/22 - 2.8 cm decubitus ulcer at the base of the coccyx without discrete evidence of osteomyelitis. Last 2021 she had diagnosis of osteomyelitis. She was placed on IV antibiotics per Infectious Diseases for 6 weeks until January,. This is important because it establishes a timeline for chronic refractory osteomyelitis. Progress of Wound: There are areas of bone still exposed. Overall smaller in size, base of ulcer is beefy pink. She is complaining of not feeling well and her urine being cloudy, which is new from yesterday. She has increased frequency. She needs to straight cath to void. No back pain (but she doesn't have feeling in her lower back) and no lower abdominal pain. 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 Hyperbaric oxygen therapy was administered as per the facility's protocol.? Hyperbaric oxygen therapy was administered at 2.0 LIONEL in 100% oxygen for 90 minutes without air breaks.? The patient tolerated hyperbaric oxygen therapy well, without complications or complaints. Upon emergence of the hyperbaric chamber, the patient's vital signs remained stable.? She was discharged in good condition. Objective Data Objective Data Vital Signs: Vital Signs Temp Pulse Resp BP 96.2 F L 89 18 121/58 H 02/10/23 15:19 02/10/23 15:19 02/10/23 15:19 02/10/23 15:19 Weight: 145 lb 9.6 oz Body Mass Index (BMI) 22.8 Lab / Micro Data Labs: Laboratory Results - last 24 hr 02/10/23 16:15: Urine Color Yellow, Urine Clarity Sl. Cloudy, Urine pH 7.0, Ur Specific [place] 1.010, Urine Protein 15 H, Urine Glucose (UA) Normal, Urine Ketones Negative, Urine Occult Blood 25 H, Urine Nitrite Negative, Urine Bi lirubin Negative, Urine Urobilinogen Normal, Ur Leukocyte Esterase 500 H Micro: Microbiology 02/10/23 16:15 Urine, Random Urine Culture - Preliminary GNR lactose state director Exam Physical Exam Const alert, oriented x3 and no apparent distress HEENT EAC's normal and TM's normal bilaterally Psych mental status grossly normal, thought process normal, cooperative, affect normal and speech normal Assessment and Debridement #1- sacral: Debridement not Completed: No debridement was completed today Nursing Assessment and Debridement Post-Debridement Measurements and Additional Note: Post-Debridement Measurements/Treatment WC - Nurse 1 - General Ulcer Assessment Start: 01/28/23 15:25 Freq: Status: Active Protocol: [employer] Activity Type Activity Date Activity User E-sign Co-sign Detail Recorded Client Recorded Date Recorded By Document 02/10/23 15:17 [facility] Desktop 02/10/23 15:26 [facility] 02/10/23 15:17 - Today's Visit Information Type of service Follow-up Visit (Physician/NEWSPAPER STUFFER ) Arrival Mode Wheelchair Transfer Assistance Transfer Board Transfer Assist (Other) 1 Patient Identification Verified (Name & Yes ) Patient Requires Transmission-Based No Precautions Height and Weight Body Mass Index (BMI) 22.8 BMI Classification Normal Vital Signs Comment VITALS OBTAINED IN [facility] PRIOR TO VISIT History Since Last Visit- (Skip if this is Patient's initial visit) Have you changed medications since your No last visit? Any new allergies or adverse reactions No Had a fall/change in ADL's that may No increase risk of falls Signs or symptoms of abuse and/or No neglect since last visit Have you been in the hospital since your No last visit? Has dressing in place as prescribed Yes Has compression in place as prescribed N/A Has offloadiing in place as prescribed N/A Experienced any changes in pain level or No management Left Footwear Regular Shoe Right Footwear Regular Shoe Pain Scale: 0-10 Numeric Is Patient Pain Free? Yes WC - Nurse 1 - General Ulcer Measurement Start: 01/28/23 15:25 Freq: Status: Active Protocol: Activity Type Activity Date Activity User E-sign Co-sign Detail Recorded Client Recorded Date Recorded By Document 02/10/23 15:17 [facility] Desktop 02/10/23 15:26 [facility] 02/10/23 15:17 Wound Center Nurse 1 #1- sacral -Combined with other wound No -Current Size (cm) - Length 5.5 -Current Size (cm) - Width 1 -Current Size (cm) - Depth 5.7 -Total Square Cm 5.5 -Photo Taken No -Epithelialization Small 1-33% -Exudate Amt Large -Exudate Type Serosanguineous -Wound Margin Distinct, Outline Attached -Granulation Amt Large (67-100%) -Granulation Quality Red -Slough/Fibrin No -Necrosis Amt None Present (0 %) -Texture (Neda-wound Skin Appearance) Assessed, Scarring -Moisture (Neda-wound Skin Appearance) Assessed -Color (Neda-wound Skin Appearance) Assessed -Temperature (Neda-wound Skin No Abnormality Appearance) (Pt Warm) -Tenderness on Palpation (Neda-wound No Skin Appearance) -Ulcer Cleansing Rinsed/ Irrigated with Saline -Foul Odor after Cleansing No WC - Nurse 2 - General Ulcer CM Notes Start: 01/28/23 15:25 Freq: Status: Active Protocol: Activity Type Activity Date Activity User E-sign Co-sign Detail Recorded Client Recorded Date Recorded By Document 02/10/23 15:38 Desktop 02/10/23 15:44 02/10/23 15:38 Wound Center Nurse 2 -Time 15:39 -Correct Patient Yes -Correct Side, Site, Position Yes -Correct Procedure Yes -Procedure Performed Yes -Type of Procedure Debridement -Clinical Debridement Muscle / Fascia -Tissue Removed Muscle,Fascia -Post Debridement (cm) - Length 5.4 -Post Debridement (cm) - Width 1.0 -Post Debridement (cm) - Depth 3.5 -Total Square (Post) (cm) 5.40 -Area of Debridement (cm) - Length 5.4 -Area of Debridement (cm) - Width 1.0 -Total Square (Area) (cm) 5.40 -Tunneling No -Undermining/Tunneling No -Circular Undermining No -Wound/Ulcer Outcome Not Healed -Ulcer Cleansing Rinsed/ Irrigated with Saline -Foul Odor after Cleansing No -Bioengineered Tissue No -Bleeding Controlled with Pressure -Treatment Response Procedure Tolerated Well -Offloading No -Pressure Reduction Wheelchair cushion -Debridement - Muscle / Fascia, 1st Yes 20sq cm Pain Scale: 0-10 Numeric Is Patient Pain Free? Yes - Nurse 3 - General Ulcer D/C NN Start: 01/28/23 15:25 Freq: Status: Active Protocol: Activity Type Activity Date Activity User E-sign Co-sign Detail Recorded Client Recorded Date Recorded By Document 02/10/23 16:03 [facility] Desktop 02/10/23 16:03 [facility] 02/10/23 16:03 Wound Care Center Nurse 3 #1- sacral -Ulcer Cleansing Rinsed/ Irrigated with Saline -Foul Odor after Cleansing No -Negative Pressure Wound Therapy Continue -Setting (mmHg) 150 -Negative Pressure is Continuous -NPWT Application Charge NPWT & Debridement (nc ) Treatment Response Procedure Tolerated Well Pain Scale: 0-10 Numeric Is Patient Pain Free? Yes - Visit Discharge Discharge Condition Stable Ambulatory Status Wheelchair Transportation Private Auto Assessment/Plan Assessment/Plan (1) Osteomyelitis: CODE(S): M86.9 - Osteomyelitis, unspecified QUALIFIERS: Osteomyelitis type: other chronic Osteomyelitis location: other site Qualified Code(s): M86.68 - Other chronic osteomyelitis, other site (2) Sacral decubitus ulcer, stage IV: CODE(S): L89.154 - Pressure ulcer of sacral region, stage 4 PLAN: Plan She is tolerating and benefiting from hyperbaric oxygen therapy which will be continued per the patient's medical plan.
[2023-02-11 15:12] VITALS: BP 104/47; BP 105/53; PULSE 69; PULSE 75; RESP 18; TEMP 36.4; TEMP 36.6
--- NOTE | 2023-02-13 13:10 | HBO.PN.PCM_ITS ---
History of Present Illness Date of Service: 02/13/23 Chief Complaint: Sacral pressure sore, Stage IV. History of Wound: Surgery 12/18/22 - Excision sacral pressure sore, Stage IV, with partial ostectomy for osteomyelitis. Wound care - VAC. Operative Culture - Corynebacterium striatum in the soft tissue and Kocuria kristinae in the bone. Was treated perioperatively with Augmentin and Flagyl for a preop culture positive for Enterococcus faecalis and Anaerobes. Kocuria kristinae in the bone is positive for osteomyelitis. It is significant and should be treated since it didn't show up in the soft tissue culture. She was placed on Augmentin and is finishing them. Pathology - Negative for acute osteomyelitis. Chronic reparative and reactive change. Prealbumin from 10/30/22 was 20.1. Encourage nutritional supplementation with protein to help the healing process. MRI Pelvis from 08/21/22 - 2.8 cm decubitus ulcer at the base of the coccyx without discrete evidence of osteomyelitis. Last 2021 she had diagnosis of osteomyelitis. She was placed on IV antibiotics per Infectious Diseases for 6 weeks until January,. This is important because it establishes a timeline for chronic refractory osteomyelitis. Progress of Wound: There are areas of bone still exposed. Overall smaller in size, base of ulcer is beefy pink. She is complaining of not feeling well and her urine being cloudy, which is new from yesterday. She has increased frequency. She needs to straight cath to void. No back pain (but she doesn't have feeling in her lower back) and no lower abdominal pain. 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 Hyperbaric oxygen therapy was administered as per the facility's protocol.? Hyperbaric oxygen therapy was administered at 2.0 LIONEL in 100% oxygen for 90 minutes without air breaks.? The patient tolerated hyperbaric oxygen therapy well, without complications or complaints. Upon emergence of the hyperbaric chamber, the patient's vital signs remained stable.? She was discharged in good condition. Objective Data Objective Data Vital Signs: Vital Signs Temp Pulse Resp BP 97.8 F 75 18 104/47 L 02/11/23 15:12 02/11/23 15:12 02/11/23 15:12 02/11/23 15:12 Weight: 145 lb 9.6 oz Body Mass Index (BMI) 22.8 Lab / Micro Data Micro: Microbiology 02/10/23 16:15 Urine, Random Urine Culture - Final Klebsiella pneumoniae sp pneum Exam Physical Exam Const alert, oriented x3 and no apparent distress HEENT EAC's normal and TM's normal bilaterally Psych mental status grossly normal, thought process normal, cooperative, affect normal and speech normal Assessment and Debridement #1- sacral: Debridement not Completed: No debridement was completed today Nursing Assessment and Debridement Post-Debridement Measurements and Additional Note: Post-Debridement Measurements/Treatment - Nurse 1 - General Ulcer Assessment Start: 01/28/23 15:25 Freq: Status: Active Protocol: BENIGNO Activity Type Activity Date Activity User E-sign Co-sign Detail Recorded Client Recorded Date Recorded By Document 02/10/23 15:17 [facility] 02/10/23 15:26 [facility] 02/10/23 15:17 WC - Today's Visit Information 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 Any new allergies or adverse reactions No Had a fall/change in ADL's that may No increase risk of falls Signs or symptoms of abuse and/or No neglect since last visit Have you been in the hospital since your No last visit? Has dressing in place as prescribed Yes Has compression in place as prescribed N/A Has offloadiing in place as prescribed N/A Experienced any changes in pain level or No management Left Footwear Regular Shoe Right Footwear Regular Shoe Pain Scale: 0-10 Numeric Is Patient Pain Free? Yes - Nurse 1 - General Ulcer Measurement Start: 01/28/23 15:25 Freq: Status: Active Protocol: Activity Type Activity Date Activity User E-sign Co-sign Detail Recorded Client Recorded Date Recorded By Document 02/10/23 15:17 [employer] 02/10/23 15:26 [facility] 02/10/23 15:17 Wound Center Nurse 1 #1- sacral -Combined with other wound No -Current Size (cm) - Length 5.5 -Current Size (cm) - Width 1 -Current Size (cm) - Depth 5.7 -Total Square Cm 5.5 -Photo Taken No -Epithelialization Small 1-33% -Exudate Amt Large -Exudate Type Serosanguineous -Wound Margin Distinct, Outline Attached -Granulation Amt Large (67-100%) -Granulation Quality Red -Slough/Fibrin No -Necrosis Amt None Present (0 %) -Texture (Neda-wound Skin Appearance) Assessed, Scarring -Moisture (Neda-wound Skin Appearance) Assessed -Color (Neda-wound Skin Appearance) Assessed -Temperature (Neda-wound Skin No Abnormality Appearance) (Pt Warm) -Tenderness on Palpation (Neda-wound No Skin Appearance) -Ulcer Cleansing Rinsed/ Irrigated with Saline -Foul Odor after Cleansing No WC - Nurse 2 - General Ulcer CM Notes Start: 01/28/23 15:25 Freq: Status: Active Protocol: Activity Type Activity Date Activity User E-sign Co-sign Detail Recorded Client Recorded Date Recorded By Document 02/10/23 15:38 Desktop 02/10/23 15:44 02/10/23 15:38 Wound Center Nurse 2 -Time 15:39 -Correct Patient Yes -Correct Side, Site, Position Yes -Correct Procedure Yes -Procedure Performed Yes -Type of Procedure Debridement -Clinical Debridement Muscle / Fascia -Tissue Removed Muscle,Fascia -Post Debridement (cm) - Length 5.4 -Post Debridement (cm) - Width 1.0 -Post Debridement (cm) - Depth 3.5 -Total Square (Post) (cm) 5.40 -Area of Debridement (cm) - Length 5.4 -Area of Debridement (cm) - Width 1.0 -Total Square (Area) (cm) 5.40 -Tunneling No -Undermining/Tunneling No -Circular Undermining No -Wound/Ulcer Outcome Not Healed -Ulcer Cleansing Rinsed/ Irrigated with Saline -Foul Odor after Cleansing No -Bioengineered Tissue No -Bleeding Controlled with Pressure -Treatment Response Procedure Tolerated Well -Offloading No -Pressure Reduction Wheelchair cushion -Debridement - Muscle / Fascia, 1st Yes 20sq cm Pain Scale: 0-10 Numeric Is Patient Pain Free? Yes WC - Nurse 3 - General Ulcer D/C NN Start: 01/28/23 15:25 Freq: Status: Active Protocol: Activity Type Activity Date Activity User E-sign Co-sign Detail Recorded Client Recorded Date Recorded By Document 02/10/23 16:03 [facility] Desktop 02/10/23 16:03 [facility] 02/10/23 16:03 Wound Care Center Nurse 3 #1- sacral -Ulcer Cleansing Rinsed/ Irrigated with Saline -Foul Odor after Cleansing No -Negative Pressure Wound Therapy Continue -Setting (mmHg) 150 -Negative Pressure is Continuous -NPWT Application Charge NPWT & Debridement (nc ) Treatment Response Procedure Tolerated Well Pain Scale: 0-10 Numeric Is Patient Pain Free? Yes WC - Visit Discharge Discharge Condition Stable Ambulatory Status Wheelchair Transportation Private Auto Assessment/Plan Assessment/Plan (1) Osteomyelitis: CODE(S): M86.9 - Osteomyelitis, unspecified QUALIFIERS: Osteomyelitis location: other site Osteomyelitis type: other chronic Qualified Code(s): M86.68 - Other chronic osteomyelitis, other site (2) Sacral decubitus ulcer, stage IV: CODE(S): L89.154 - Pressure ulcer of sacral region, stage 4 PLAN: Plan She is tolerating and benefiting from hyperbaric oxygen therapy which will be continued per the patient's medical plan.
[2023-02-13 14:31] VITALS: BP 102/35; BP 97/47; PULSE 63; PULSE 74; RESP 18; TEMP 36.1; TEMP 36.4
[2023-02-14 09:53] VITALS: BP 105/67; BP 126/68; PULSE 66; PULSE 77; RESP 16; TEMP 35.8; TEMP 35.9
--- NOTE | 2023-02-14 14:19 | PCM.HBO.PN ---
History of Present Illness Date of Service: 02/14/23 Chief Complaint: Sacral pressure sore, Stage IV. History of Wound: Surgery 12/18/22 - Excision sacral pressure sore, Stage IV, with partial ostectomy for osteomyelitis. Wound care - VAC. Operative Culture - Corynebacterium striatum in the soft tissue and Kocuria kristinae in the bone. Was treated perioperatively with Augmentin and Flagyl for a preop culture positive for Enterococcus faecalis and Anaerobes. Kocuria kristinae in the bone is positive for osteomyelitis. It is significant and should be treated since it didn't show up in the soft tissue culture. She was placed on Augmentin and is finishing them. Pathology - Negative for acute osteomyelitis. Chronic reparative and reactive change. Prealbumin from 10/30/22 was 20.1. Encourage nutritional supplementation with protein to help the healing process. MRI Pelvis from 08/21/22 - 2.8 cm decubitus ulcer at the base of the coccyx without discrete evidence of osteomyelitis. Last 2021 she had diagnosis of osteomyelitis. She was placed on IV antibiotics per Infectious Diseases for 6 weeks until January,. This is important because it establishes a timeline for chronic refractory osteomyelitis. Progress of Wound: There are areas of bone still exposed. Overall smaller in size, base of ulcer is beefy pink. She is complaining of not feeling well and her urine being cloudy, which is new from yesterday. She has increased frequency. She needs to straight cath to void. No back pain (but she doesn't have feeling in her lower back) and no lower abdominal pain. 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 Hyperbaric oxygen therapy was administered as per the facility's protocol.? Hyperbaric oxygen therapy was administered at 2.0 LIONEL in 100% oxygen for 90 minutes without air breaks.? The patient tolerated hyperbaric oxygen therapy well, without complications or complaints. Upon emergence of the hyperbaric chamber, the patient's vital signs remained stable.? She was discharged in good condition. Objective Data Objective Data Vital Signs: Vital Signs Temp Pulse Resp BP 96.5 F L 77 16 105/67 02/14/23 09:53 02/14/23 09:53 02/14/23 09:53 02/14/23 09:53 Weight: 66.043 kg Body Mass Index (BMI) 22.8 Lab / Micro Data Micro: Microbiology 02/10/23 16:15 Urine, Random Urine Culture - Final Klebsiella pneumoniae sp pneum Exam Physical Exam Const alert, oriented x3 and no apparent distress HEENT EAC's normal and TM's normal bilaterally Psych mental status grossly normal, thought process normal, cooperative, affect normal and speech normal Assessment and Debridement #1- sacral: Debridement not Completed: No debridement was completed today Nursing Assessment and Debridement Post-Debridement Measurements and Additional Note: Post-Debridement Measurements/Treatment WC - Nurse 3 - General Ulcer D/C NN Start: 01/28/23 15:25 Freq: Status: Active Protocol: Activity Type Activity Date Activity User E-sign Co-sign Detail Recorded Client Recorded Date Recorded By Document 02/14/23 09:53 Laptop 02/14/23 09:57 02/14/23 09:53 Pain Scale: 0-10 Numeric Is Patient Pain Free? Yes WC - Visit Discharge Discharge Condition Stable Ambulatory Status Wheelchair Transportation Private Auto Accompanied by self Medication Reconcilliation completed & No provided to patient/care provider Clinical Summary of Care Provided No Assessment/Plan Assessment/Plan (1) Osteomyelitis: CODE(S): M86.9 - Osteomyelitis, unspecified QUALIFIERS: Osteomyelitis type: other chronic Osteomyelitis location: other site Qualified Code(s): M86.68 - Other chronic osteomyelitis, other site (2) Sacral decubitus ulcer, stage IV: CODE(S): L89.154 - Pressure ulcer of sacral region, stage 4 PLAN: Plan She is tolerating and benefiting from hyperbaric oxygen therapy which will be continued per the patient's medical plan.
--- NOTE | 2023-02-18 13:00 | PCM.HBO.PN ---
History of Present Illness Date of Service: 02/18/23 Chief Complaint: Sacral pressure sore, Stage IV. History of Wound: Surgery 12/18/22 - Excision sacral pressure sore, Stage IV, with partial ostectomy for osteomyelitis. Wound care - VAC. Operative Culture - Corynebacterium striatum in the soft tissue and Kocuria kristinae in the bone. Was treated perioperatively with Augmentin and Flagyl for a preop culture positive for Enterococcus faecalis and Anaerobes. Kocuria kristinae in the bone is positive for osteomyelitis. It is significant and should be treated since it didn't show up in the soft tissue culture. She was placed on Augmentin and is finishing them. Pathology - Negative for acute osteomyelitis. Chronic reparative and reactive change. Prealbumin from 10/30/22 was 20.1. Encourage nutritional supplementation with protein to help the healing process. MRI Pelvis from 08/21/22 - 2.8 cm decubitus ulcer at the base of the coccyx without discrete evidence of osteomyelitis. Last 2021 she had diagnosis of osteomyelitis. She was placed on IV antibiotics per Infectious Diseases for 6 weeks until January,. This is important because it establishes a timeline for chronic refractory osteomyelitis. Progress of Wound: There are areas of bone still exposed. Overall smaller in size, base of ulcer is beefy pink. She is complaining of not feeling well and her urine being cloudy, which is new from yesterday. She has increased frequency. She needs to straight cath to void. No back pain (but she doesn't have feeling in her lower back) and no lower abdominal pain. Subjective Subjective Today she presents for hyperbaric oxygen therapy session of for treatment of chronic refractory osteomyelitis of her sacrum with stage 4 pressure ulcer. Hyperbaric oxygen therapy was administered as per the facility's protocol.? Hyperbaric oxygen therapy was administered at 2.0 LIONEL in 100% oxygen for 90 minutes without air breaks.? The patient tolerated hyperbaric oxygen therapy well, without complications or complaints. Upon emergence of the hyperbaric chamber, the patient's vital signs remained stable.? She was discharged in good condition. Objective Data Objective Data Vital Signs: Vital Signs Temp Pulse Resp BP 96.5 F L 77 16 105/67 02/14/23 09:53 02/14/23 09:53 02/14/23 09:53 02/14/23 09:53 Weight: 145 lb 9.6 oz Body Mass Index (BMI) 22.8 Lab / Micro Data Micro: Microbiology 02/10/23 16:15 Urine, Random Urine Culture - Final Klebsiella pneumoniae sp pneum Exam Physical Exam Const alert, oriented x3 and no apparent distress HEENT EAC's normal and TM's normal bilaterally Chest inspection of chest normal Resp normal respiratory effort Auscultation: clear to auscultation bilaterally Cardio regular rate and regular rhythm Psych mental status grossly normal, thought process normal, cooperative, affect normal and speech normal Assessment and Debridement #1- sacral: Debridement not Completed: No debridement was completed today Assessment/Plan Assessment/Plan (1) Osteomyelitis: CODE(S): M86.9 - Osteomyelitis, unspecified QUALIFIERS: Osteomyelitis location: other site Osteomyelitis type: other chronic Qualified Code(s): M86.68 - Other chronic osteomyelitis, other site (2) Sacral decubitus ulcer, stage IV: CODE(S): L89.154 - Pressure ulcer of sacral region, stage 4 PLAN: Plan She is tolerating and benefiting from hyperbaric oxygen therapy which will be continued per the patient's medical plan.
[2023-02-18 15:06] VITALS: BP 107/50; BP 96/54; PULSE 61; PULSE 77; RESP 18; TEMP 35.8; TEMP 36.1
--- NOTE | 2023-02-19 13:02 | PCM.HBO.PN ---
History of Present Illness Date of Service: 02/19/23 Chief Complaint: Sacral pressure sore, Stage IV. History of Wound: Surgery 12/18/22 - Excision sacral pressure sore, Stage IV, with partial ostectomy for osteomyelitis. Wound care - VAC. Operative Culture - Corynebacterium striatum in the soft tissue and Kocuria kristinae in the bone. Was treated perioperatively with Augmentin and Flagyl for a preop culture positive for Enterococcus faecalis and Anaerobes. Kocuria kristinae in the bone is positive for osteomyelitis. It is significant and should be treated since it didn't show up in the soft tissue culture. She was placed on Augmentin and is finishing them. Pathology - Negative for acute osteomyelitis. Chronic reparative and reactive change. Prealbumin from 10/30/22 was 20.1. Encourage nutritional supplementation with protein to help the healing process. MRI Pelvis from 08/21/22 - 2.8 cm decubitus ulcer at the base of the coccyx without discrete evidence of osteomyelitis. Last 2021 she had diagnosis of osteomyelitis. She was placed on IV antibiotics per Infectious Diseases for 6 weeks until January,. This is important because it establishes a timeline for chronic refractory osteomyelitis. Progress of Wound: There are areas of bone still exposed. Overall smaller in size, base of ulcer is beefy pink. She is complaining of not feeling well and her urine being cloudy, which is new from yesterday. She has increased frequency. She needs to straight cath to void. No back pain (but she doesn't have feeling in her lower back) and no lower abdominal pain. Subjective Subjective Today she presents for hyperbaric oxygen therapy session 14 of for treatment of chronic refractory osteomyelitis of her sacrum with stage 4 pressure ulcer. Hyperbaric oxygen therapy was administered as per the facility's protocol.? Hyperbaric oxygen therapy was administered at 2.0 LIONEL in 100% oxygen for 90 minutes without air breaks.? The patient tolerated hyperbaric oxygen therapy well, without complications or complaints. Upon emergence of the hyperbaric chamber, the patient's vital signs remained stable.? She was discharged in good condition. Objective Data Objective Data Vital Signs: Vital Signs Temp Pulse Resp BP 96.9 F L 77 18 96/54 L 02/18/23 15:06 02/18/23 15:06 02/18/23 15:06 02/18/23 15:06 Weight: 145 lb 9.6 oz Body Mass Index (BMI) 22.8 Lab / Micro Data Micro: Microbiology 02/10/23 16:15 Urine, Random Urine Culture - Final Klebsiella pneumoniae sp pneum Exam Physical Exam Const alert, oriented x3 and no apparent distress HEENT EAC's normal and TM's normal bilaterally Chest inspection of chest normal Resp normal respiratory effort Auscultation: clear to auscultation bilaterally Cardio regular rate and regular rhythm Psych mental status grossly normal, thought process normal, cooperative, affect normal and speech normal Assessment and Debridement #1- sacral: Debridement not Completed: No debridement was completed today Assessment/Plan Assessment/Plan (1) Osteomyelitis: CODE(S): M86.9 - Osteomyelitis, unspecified QUALIFIERS: Osteomyelitis location: other site Osteomyelitis type: other chronic Qualified Code(s): M86.68 - Other chronic osteomyelitis, other site (2) Sacral decubitus ulcer, stage IV: CODE(S): L89.154 - Pressure ulcer of sacral region, stage 4 PLAN: Plan She is tolerating and benefiting from hyperbaric oxygen therapy which will be continued per the patient's medical plan.
[2023-02-19 15:48] VITALS: BP 106/57; BP 110/62; PULSE 60; PULSE 84; RESP 18; TEMP 36.4; TEMP 36.5
[2023-02-20 13:28] VITALS: BP 104/32; BP 113/36; PULSE 63; PULSE 97; RESP 18; TEMP 36.2; TEMP 36.5
--- NOTE | 2023-02-20 15:13 | PCM.HBO.PN ---
History of Present Illness Date of Service: 02/20/23 Chief Complaint: Sacral pressure sore, Stage IV. History of Wound: Surgery 12/18/22 - Excision sacral pressure sore, Stage IV, with partial ostectomy for osteomyelitis. Wound care - VAC. Operative Culture - Corynebacterium striatum in the soft tissue and Kocuria kristinae in the bone. Was treated perioperatively with Augmentin and Flagyl for a preop culture positive for Enterococcus faecalis and Anaerobes. Kocuria kristinae in the bone is positive for osteomyelitis. It is significant and should be treated since it didn't show up in the soft tissue culture. She was placed on Augmentin and is finishing them. Pathology - Negative for acute osteomyelitis. Chronic reparative and reactive change. Prealbumin from 10/30/22 was 20.1. Encourage nutritional supplementation with protein to help the healing process. MRI Pelvis from 08/21/22 - 2.8 cm decubitus ulcer at the base of the coccyx without discrete evidence of osteomyelitis. Last 2021 she had diagnosis of osteomyelitis. She was placed on IV antibiotics per Infectious Diseases for 6 weeks until January,. This is important because it establishes a timeline for chronic refractory osteomyelitis. Progress of Wound: There are areas of bone still exposed. Overall smaller in size, base of ulcer is beefy pink. She is complaining of not feeling well and her urine being cloudy, which is new from yesterday. She has increased frequency. She needs to straight cath to void. No back pain (but she doesn't have feeling in her lower back) and no lower abdominal pain. Subjective Subjective Today she presents for hyperbaric oxygen therapy session 15 of 30 for treatment of chronic refractory osteomyelitis of her sacrum with stage 4 pressure ulcer. Hyperbaric oxygen therapy was administered as per the facility's protocol.? Hyperbaric oxygen therapy was administered at 2.0 LIONEL in 100% oxygen for 90 minutes without air breaks.? The patient tolerated hyperbaric oxygen therapy well, without complications or complaints. Upon emergence of the hyperbaric chamber, the patient's vital signs remained stable.? She was discharged in good condition. Objective Data Objective Data Vital Signs: Vital Signs Temp Pulse Resp BP 97.7 F L 97 18 113/36 L 02/20/23 13:28 02/20/23 13:28 02/20/23 13:28 02/20/23 13:28 Weight: 145 lb 9.6 oz Body Mass Index (BMI) 22.8 Lab / Micro Data Micro: Microbiology 02/10/23 16:15 Urine, Random Urine Culture - Final Klebsiella pneumoniae sp pneum Exam Physical Exam Const alert, oriented x3 and no apparent distress HEENT EAC's normal and TM's normal bilaterally Chest inspection of chest normal Resp normal respiratory effort Auscultation: clear to auscultation bilaterally Cardio regular rate and regular rhythm Psych mental status grossly normal, thought process normal, cooperative, affect normal and speech normal Assessment and Debridement #1- sacral: Debridement not Completed: No debridement was completed today Assessment/Plan Assessment/Plan (1) Osteomyelitis: CODE(S): M86.9 - Osteomyelitis, unspecified QUALIFIERS: Osteomyelitis type: other chronic Osteomyelitis location: other site Qualified Code(s): M86.68 - Other chronic osteomyelitis, other site (2) Sacral decubitus ulcer, stage IV: CODE(S): L89.154 - Pressure ulcer of sacral region, stage 4 PLAN: Plan She is tolerating and benefiting from hyperbaric oxygen therapy which will be continued per the patient's medical plan.
[2023-02-21 09:51] VITALS: BP 118/62; BP 123/73; PULSE 68; PULSE 92; RESP 16; RESP 18; TEMP 35.7; TEMP 36.4
--- NOTE | 2023-02-21 12:50 | PCM.HBO.PN ---
History of Present Illness Date of Service: 02/21/23 Chief Complaint: Sacral pressure sore, Stage IV. History of Wound: Surgery 12/18/22 - Excision sacral pressure sore, Stage IV, with partial ostectomy for osteomyelitis. Wound care - VAC. Operative Culture - Corynebacterium striatum in the soft tissue and Kocuria kristinae in the bone. Was treated perioperatively with Augmentin and Flagyl for a preop culture positive for Enterococcus faecalis and Anaerobes. Kocuria kristinae in the bone is positive for osteomyelitis. It is significant and should be treated since it didn't show up in the soft tissue culture. She was placed on Augmentin and is finishing them. Pathology - Negative for acute osteomyelitis. Chronic reparative and reactive change. Prealbumin from 10/30/22 was 20.1. Encourage nutritional supplementation with protein to help the healing process. MRI Pelvis from 08/21/22 - 2.8 cm decubitus ulcer at the base of the coccyx without discrete evidence of osteomyelitis. Last 2021 she had diagnosis of osteomyelitis. She was placed on IV antibiotics per Infectious Diseases for 6 weeks until January,. This is important because it establishes a timeline for chronic refractory osteomyelitis. Progress of Wound: There are areas of bone still exposed. Overall smaller in size, base of ulcer is beefy pink. She is complaining of not feeling well and her urine being cloudy, which is new from yesterday. She has increased frequency. She needs to straight cath to void. No back pain (but she doesn't have feeling in her lower back) and no lower abdominal pain. 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 Hyperbaric oxygen therapy was administered as per the facility's protocol.? Hyperbaric oxygen therapy was administered at 2.0 LIONEL in 100% oxygen for 90 minutes without air breaks.? The patient tolerated hyperbaric oxygen therapy well, without complications or complaints. Upon emergence of the hyperbaric chamber, the patient's vital signs remained stable.? She was discharged in good condition. Objective Data Objective Data Vital Signs: Vital Signs Temp Pulse Resp BP 96.2 F L 92 16 123/73 H 02/21/23 09:51 02/21/23 09:51 02/21/23 09:51 02/21/23 09:51 Weight: 66.043 kg Body Mass Index (BMI) 22.8 Lab / Micro Data Micro: Microbiology 02/10/23 16:15 Urine, Random Urine Culture - Final Klebsiella pneumoniae sp pneum Exam Physical Exam Const alert, oriented x3 and no apparent distress HEENT EAC's normal and TM's normal bilaterally Psych mental status grossly normal, thought process normal, cooperative, affect normal and speech normal Assessment and Debridement #1- sacral: Debridement not Completed: No debridement was completed today Nursing Assessment and Debridement Post-Debridement Measurements and Additional Note: Post-Debridement Measurements/Treatment WC - Nurse 3 - General Ulcer D/C NN Start: 01/28/23 15:25 Freq: Status: Active Protocol: Activity Type Activity Date Activity User E-sign Co-sign Detail Recorded Client Recorded Date Recorded By Document 02/21/23 09:51 Laptop 02/21/23 10:20 02/21/23 09:51 Pain Scale: 0-10 Numeric Is Patient Pain Free? Yes WC - Visit Discharge Discharge Condition Stable Ambulatory Status Wheelchair Transportation Private Auto Medication Reconcilliation completed & No provided to patient/care provider Clinical Summary of Care Provided No Assessment/Plan Assessment/Plan (1) Osteomyelitis: CODE(S): M86.9 - Osteomyelitis, unspecified QUALIFIERS: Osteomyelitis type: other chronic Osteomyelitis location: other site Qualified Code(s): M86.68 - Other chronic osteomyelitis, other site (2) Sacral decubitus ulcer, stage IV: CODE(S): L89.154 - Pressure ulcer of sacral region, stage 4 PLAN: Plan She is tolerating and benefiting from hyperbaric oxygen therapy which will be continued per the patient's medical plan.
--- NOTE | 2023-03-10 14:53 | PCM.HBO.PN ---
History of Present Illness Date of Service: 03/10/23 Chief Complaint: Sacral pressure sore, Stage IV. History of Wound: Surgery 12/18/22 - Excision sacral pressure sore, Stage IV, with partial ostectomy for osteomyelitis. Wound care - VAC. Operative Culture - Corynebacterium striatum in the soft tissue and Kocuria kristinae in the bone. Was treated perioperatively with Augmentin and Flagyl for a preop culture positive for Enterococcus faecalis and Anaerobes. Kocuria kristinae in the bone is positive for osteomyelitis. It is significant and should be treated since it didn't show up in the soft tissue culture. She was placed on Augmentin and is finishing them. Pathology - Negative for acute osteomyelitis. Chronic reparative and reactive change. Prealbumin from 10/30/22 was 20.1. Encourage nutritional supplementation with protein to help the healing process. MRI Pelvis from 08/21/22 - 2.8 cm decubitus ulcer at the base of the coccyx without discrete evidence of osteomyelitis. At her last Wound Center visit on 02/10/23, she had urinary symptoms. A Urinalysis was done which did not report any WBC, and no Bacteria reported. The Leukocyte Esterase was 500. She was started on Cipro and has finished them. A Urine Culture showed Klebsiella pneumoniae. It is sensitive to Cipro. Today her urinary symptoms have resolved. Last 2021 she had diagnosis of osteomyelitis. She was placed on IV antibiotics per Infectious Diseases for 6 weeks until January,. This is important because it establishes a timeline for chronic refractory osteomyelitis. 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 Hyperbaric oxygen therapy was administered as per the facility's protocol.? Hyperbaric oxygen therapy was administered at 2.0 LIONEL in 100% oxygen for 90 minutes without air breaks.? The patient tolerated hyperbaric oxygen therapy well, without complications or complaints. Upon emergence of the hyperbaric chamber, the patient's vital signs remained stable.? She was discharged in good condition. Objective Data Objective Data Vital Signs: Vital Signs Temp Pulse Resp BP 96.2 F L 92 16 123/73 H 02/21/23 09:51 02/21/23 09:51 02/21/23 09:51 02/21/23 09:51 Weight: 145 lb 9.6 oz Body Mass Index (BMI) 22.8 Lab / Micro Data Micro: Microbiology 02/10/23 16:15 Urine, Random Urine Culture - Final Klebsiella pneumoniae sp pneum Exam Physical Exam Const alert, oriented x3 and no apparent distress HEENT normocephalic and TM's normal bilaterally HEENT Narrative: Left TM is clear today Resp normal respiratory effort and clear to auscultation bilaterally Effort and Inspection: able to speak in complete sentences Cardio regular rate and regular rhythm Psych mental status grossly normal, thought process normal, cooperative, affect normal and speech normal Assessment and Debridement #1- sacral: Debridement not Completed: No debridement was completed today Charges/Coding Wound Center CF Procedures HBO Supervision: [id number] Hyperbaric Oxygen; supervision Assessment/Plan Assessment/Plan (1) Osteomyelitis: CODE(S): M86.9 - Osteomyelitis, unspecified QUALIFIERS: Osteomyelitis type: other chronic Osteomyelitis location: other site Qualified Code(s): M86.68 - Other chronic osteomyelitis, other site (2) Sacral decubitus ulcer, stage IV: CODE(S): L89.154 - Pressure ulcer of sacral region, stage 4 PLAN: Plan She is tolerating and benefiting from hyperbaric oxygen therapy which will be continued per the patient's medical plan.
== END 2023-02-22 23:59 | disposition home or self-care (01) ==
LOC: WC 08:00
PROVIDERS: PCP Family Medicine; Referring Provider Nurse Practitioner; Visit Provider Surgery
DX: L89.154 Pressure ulcer of sacral region, stage 4 (principal); M86.9 Osteomyelitis, unspecified
CPT/HCPCS: 11043; 81002; 87077; 87086; 87088; 87186; 99183; G0277

== ENCOUNTER 2023-03-25 11:30 | Outpatient (RCR) | payer MEDICARE, BC, SELFPAY ==
[2023-02-23 00:43] VITALS: BP 123/73; PULSE 92; RESP 16; TEMP 35.7; BMI 22.8
[2023-02-24 15:21] VITALS: BP 118/64; PULSE 93; RESP 16; TEMP 36.9; BMI 22.8
--- NOTE | 2023-02-25 12:59 | PCM.HBO.PN ---
History of Present Illness Date of Service: 02/25/23 Chief Complaint: Sacral pressure sore, Stage IV. History of Wound: Surgery 12/18/22 - Excision sacral pressure sore, Stage IV, with partial ostectomy for osteomyelitis. Wound care - VAC. Operative Culture - Corynebacterium striatum in the soft tissue and Kocuria kristinae in the bone. Was treated perioperatively with Augmentin and Flagyl for a preop culture positive for Enterococcus faecalis and Anaerobes. Kocuria kristinae in the bone is positive for osteomyelitis. It is significant and should be treated since it didn't show up in the soft tissue culture. She was placed on Augmentin and is finishing them. Pathology - Negative for acute osteomyelitis. Chronic reparative and reactive change. Prealbumin from 10/30/22 was 20.1. Encourage nutritional supplementation with protein to help the healing process. MRI Pelvis from 08/21/22 - 2.8 cm decubitus ulcer at the base of the coccyx without discrete evidence of osteomyelitis. Last 2021 she had diagnosis of osteomyelitis. She was placed on IV antibiotics per Infectious Diseases for 6 weeks until January,. This is important because it establishes a timeline for chronic refractory osteomyelitis. 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 Hyperbaric oxygen therapy was administered as per the facility's protocol.? Hyperbaric oxygen therapy was administered at 2.0 LIONEL in 100% oxygen for 90 minutes without air breaks.? The patient tolerated hyperbaric oxygen therapy well, without complications or complaints. Upon emergence of the hyperbaric chamber, the patient's vital signs remained stable.? She was discharged in good condition. Objective Data Objective Data Vital Signs: Vital Signs Temp Pulse Resp BP O2 Del Method 98.5 F 93 16 118/64 Room Air 02/24/23 15:21 02/24/23 15:21 02/24/23 15:21 02/24/23 15:21 02/24/23 15:21 Oxygen Delivery Method Room Air Weight: 145 lb 9.6 oz Body Mass Index (BMI) 22.8 Exam Physical Exam Const alert, oriented x3 and no apparent distress HEENT EAC's normal and TM's normal bilaterally Chest inspection of chest normal Resp normal respiratory effort Auscultation: clear to auscultation bilaterally Cardio regular rate and regular rhythm Psych mental status grossly normal, thought process normal, cooperative, affect normal and speech normal Nursing Assessment and Debridement Post-Debridement Measurements and Additional Note: Post-Debridement Measurements/Treatment - Nurse 1 - General Ulcer Assessment Start: 02/24/23 15:21 Freq: Status: Active Protocol: BENIGNO Activity Type Activity Date Activity User E-sign Co-sign Detail Recorded Client Recorded Date Recorded By Document 02/24/23 15:21 [facility] Desktop 02/24/23 15:34 [facility] 02/24/23 15:21 WC - Today's Visit Information Type of service Follow-up Visit (Physician/PRODUCT DEVELOPER ) Arrival Mode Wheelchair Transfer Assistance Transfer Board Transfer Assist (Other) 1 Patient Identification Verified (Name & Yes ) Patient Requires Transmission-Based No Precautions Height and Weight Body Mass Index (BMI) 22.8 BMI Classification Normal Vital Signs Temperature (97.8 F-99.1 F) 98.5 F Temperature Source Temporal Pulse Rate (60-100) 93 Pulse Location Monitor Respiratory Rate (12-18) 16 Respiratory rate source Observation Oxygen Delivery Method Room Air Blood Pressure (90/60-120/80) 118/64 Blood Pressure Mean (mm Hg) 82 Source Monitor Position Sitting Blood Pressure Location Left Arm History Since Last Visit- (Skip if this is Patient's initial visit) Have you changed medications since your No last visit? Any new allergies or adverse reactions No Had a fall/change in ADL's that may No increase risk of falls Signs or symptoms of abuse and/or No neglect since last visit Have you been in the hospital since your No last visit? Has dressing in place as prescribed Yes Has compression in place as prescribed N/A Has offloadiing in place as prescribed N/A Experienced any changes in pain level or No management Left Footwear Regular Shoe Right Footwear Regular Shoe Pain Scale: 0-10 Numeric Is Patient Pain Free? Yes - Nurse 1 - General Ulcer Measurement Start: 02/24/23 15:21 Freq: Status: Active Protocol: Activity Type Activity Date Activity User E-sign Co-sign Detail Recorded Client Recorded Date Recorded By Document 02/24/23 15:21 [facility] Desktop 02/24/23 15:34 [facility] 02/24/23 15:21 Wound Center Nurse 1 #1- sacral -Combined with other wound No -Current Size (cm) - Length 5 -Current Size (cm) - Width 2 -Current Size (cm) - Depth 5 -Total Square Cm 10 -Photo Taken No -Exudate Amt Large -Exudate Type Serosanguineous -Wound Margin Distinct, Outline Attached -Granulation Amt Large (67-100%) -Granulation Quality Red -Slough/Fibrin No -Necrosis Amt None Present (0 %) -Texture (Neda-wound Skin Appearance) Assessed, Scarring -Moisture (Neda-wound Skin Appearance) Assessed -Color (Neda-wound Skin Appearance) Assessed -Temperature (Neda-wound Skin No Abnormality Appearance) (Pt Warm) -Tenderness on Palpation (Neda-wound No Skin Appearance) -Ulcer Cleansing Soap and Water -Foul Odor after Cleansing No WC - Nurse 2 - General Ulcer CM Notes Start: 02/24/23 15:21 Freq: Status: Active Protocol: Activity Type Activity Date Activity User E-sign Co-sign Detail Recorded Client Recorded Date Recorded By Document 02/24/23 15:46 Laptop 02/24/23 15:49 02/24/23 15:46 Wound Center Nurse 2 -Time 15:48 -Correct Patient Yes -Correct Side, Site, Position Yes -Correct Procedure Yes -Procedure Performed Yes -Type of Procedure Debridement -Clinical Debridement Muscle / Fascia -Tissue Removed Muscle -Post Debridement (cm) - Length 5.0 -Post Debridement (cm) - Width 1.5 -Post Debridement (cm) - Depth 4.8 -Total Square (Post) (cm) 7.50 -Area of Debridement (cm) - Length 5.0 -Area of Debridement (cm) - Width 1.5 -Total Square (Area) (cm) 7.50 -Tunneling No -Undermining/Tunneling No -Circular Undermining No -Wound/Ulcer Outcome Not Healed -Ulcer Cleansing Rinsed/ Irrigated with Saline -Foul Odor after Cleansing No -Bioengineered Tissue No -Bleeding Controlled with Pressure -Treatment Response Procedure Tolerated Well -Offloading No -Pressure Reduction Wheelchair cushion -Debridement - Muscle / Fascia, 1st Yes 20sq cm Pain Scale: 0-10 Numeric Is Patient Pain Free? Yes WC - Nurse 3 - General Ulcer D/C NN Start: 02/24/23 15:21 Freq: Status: Active Protocol: Activity Type Activity Date Activity User E-sign Co-sign Detail Recorded Client Recorded Date Recorded By Document 02/24/23 16:16 [facility] Desktop 02/24/23 16:17 [facility] 02/24/23 16:16 Wound Care Center Nurse 3 #1- sacral -Ulcer Cleansing Rinsed/ Irrigated with Saline -Foul Odor after Cleansing No -Negative Pressure Wound Therapy Continue -Setting (mmHg) 150 -Negative Pressure is Continuous -NPWT Application Charge NPWT & Debridement (nc ) Treatment Response Procedure Tolerated Well Pain Scale: 0-10 Numeric Is Patient Pain Free? Yes WC - Visit Discharge Discharge Condition Stable Ambulatory Status Wheelchair Transportation Private Auto Assessment/Plan Assessment/Plan (1) Osteomyelitis: CODE(S): M86.9 - Osteomyelitis, unspecified QUALIFIERS: Osteomyelitis location: other site Osteomyelitis type: other chronic Qualified Code(s): M86.68 - Other chronic osteomyelitis, other site (2) Sacral decubitus ulcer, stage IV: CODE(S): L89.154 - Pressure ulcer of sacral region, stage 4 PLAN: Plan She is tolerating and benefiting from hyperbaric oxygen therapy which will be continued per the patient's medical plan.
--- NOTE | 2023-02-25 14:22 | PCM.WC.PN ---
History of Present Illness Date of Service: 02/24/23 Chief Complaint: Sacral pressure sore, Stage IV. History of Wound: Surgery 12/18/22 - Excision sacral pressure sore, Stage IV, with partial ostectomy for osteomyelitis. Wound care - VAC. Operative Culture - Corynebacterium striatum in the soft tissue and Kocuria kristinae in the bone. Was treated perioperatively with Augmentin and Flagyl for a preop culture positive for Enterococcus faecalis and Anaerobes. Kocuria kristinae in the bone is positive for osteomyelitis. It is significant and should be treated since it didn't show up in the soft tissue culture. She was placed on Augmentin and is finishing them. Pathology - Negative for acute osteomyelitis. Chronic reparative and reactive change. Prealbumin from 10/30/22 was 20.1. Encourage nutritional supplementation with protein to help the healing process. MRI Pelvis from 08/21/22 - 2.8 cm decubitus ulcer at the base of the coccyx without discrete evidence of osteomyelitis. At her last Wound Center visit on 02/10/23, she had urinary symptoms. A Urinalysis was done which did not report any WBC, and no Bacteria reported. The Leukocyte Esterase was 500. She was started on Cipro and has finished them. A Urine Culture showed Klebsiella pneumoniae. It is sensitive to Cipro. Today her urinary symptoms have resolved. Last 2021 she had diagnosis of osteomyelitis. She was placed on IV antibiotics per Infectious Diseases for 6 weeks until January,. This is important because it establishes a timeline for chronic refractory osteomyelitis. Progress of Wound: Sacral ulcer improved. There is more granulation tissue covering the bone. Objective Data Objective Data Vital Signs: Vital Signs Temp Pulse Resp BP O2 Del Method 98.5 F 93 16 118/64 Room Air 02/24/23 15:21 02/24/23 15:21 02/24/23 15:21 02/24/23 15:21 02/24/23 15:21 Oxygen Delivery Method Room Air Weight: 145 lb 9.6 oz Body Mass Index (BMI) 22.8 Prealbumin from 10/30/22 was 20.1. Encourage nutritional supplementation with protein to help the healing process. Lab / Micro Data Attestation: I reviewed the patient's lab results. Micro: Microbiology 12/18/22 11:14 Soft Tissue - Sacral Pressure Sore Culture - Corynebacterium striatum. 12/18/22 11:18 Bone - Sacral Pressure Sore Culture - Kocuria kristinae. Pathology - Negative for acute osteomyelitis. Chronic reparative and reactive change. Urinalysis from 02/10/23 showed increased Leukocyte Esterase. Urine Culture showed Klebsiella pneumoniae. She was treated with Cipro. Radiography Diagnostic Testing: Study: Chest PA and Lateral Date of Exam: 01/06/23 Exam# [id number] Ordering Dr: Aaron Gregory MD INDICATION: HYPERBARIC OXYGEN THERAPY EXAMINATION/TECHNIQUE: X-RAY - XR Chest 2 Views COMPARISON: No previous relevant examinations available for comparison.. FINDINGS: LIFE-SUPPORT AND LINES: 1. None HEART AND VESSELS: The cardiac silhouette, pulmonary vasculature have normal appearance. No evidence of congestive failure. LUNGS AND PLEURAL SPACES: Lungs are clear. No focal infiltrate, consolidation or effusions. No evidence of pneumothorax. No pulmonary mass is noted. MEDIASTINUM AND HILAR REGIONS: No masses adenopathy noted. No areas of calcification. Visualized upper airway is normal in position. BONY ELEMENTS: No acute bony changes noted. RAD/Chest PA and Lateral IMPRESSION: 1. No evidence of acute cardiopulmonary process Electronically Signed: Humberto Tolentino MD at 1:00 EDT Reading Location ID and State: [facility] / [place] Tel , Service support , Charges/Coding Procedures Integumentary [id number]: [id number] Global Visit (ICD-10 - L89.154, M86.9, M62.3, G35, Z79.620, Z87.891, N39.0) Debridement Note Debridement Note Wound debrided: #1 Sacral area. Laterality: Not Applicable Wound Grade/Stage: IV. Type of Debridement: Excisional debridement Anesthesia Used: 4% Lidocaine Solution and 5% Lidocaine Gel Depth: Down to and including healthy tissue, in the subcutaneous layer, to muscle and to bone (bone is palpable yet covered with granulation tissue. It was not debrided.) Percentage of wound debrided: 100 Instrument Used: 7mm curette Tissue Removed: subcutaneous tissue and muscle. Severity: Fat Layer Exposed (muscle is exposed. bone is palpable yet not exposed. It was not debrided.) Amount of bleeding with debridement: Mild Bleeding Controlled with: Pressure and Compression and gauze Patient tolerated procedure: Patient tolerated procedure well Post-Debridement Measurements and Additional Note: Post-Debridement Measurements/Treatment - Nurse 1 - General Ulcer Assessment Start: 02/24/23 15:21 Freq: Status: Active Protocol: BENIGNO Activity Type Activity Date Activity User E-sign Co-sign Detail Recorded Client Recorded Date Recorded By Document 02/24/23 15:21 [facility] Desktop 02/24/23 15:34 [facility] 02/24/23 15:21 WC - Today's Visit Information Type of service Follow-up Visit (Physician/BUILDING 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 ) Arrival Mode Wheelchair Transfer Assistance Transfer Board Transfer Assist (Other) 1 Patient Identification Verified (Name & Yes ) Patient Requires Transmission-Based No Precautions Height and Weight Body Mass Index (BMI) 22.8 BMI Classification Normal Vital Signs Temperature (97.8 F-99.1 F) 98.5 F Temperature Source Temporal Pulse Rate (60-100) 93 Pulse Location Monitor Respiratory Rate (12-18) 16 Respiratory rate source Observation Oxygen Delivery Method Room Air Blood Pressure (90/60-120/80) 118/64 Blood Pressure Mean (mm Hg) 82 Source Monitor Position Sitting Blood Pressure Location Left Arm History Since Last Visit- (Skip if this is Patient's initial visit) Have you changed medications since your No last visit? Any new allergies or adverse reactions No Had a fall/change in ADL's that may No increase risk of falls Signs or symptoms of abuse and/or No neglect since last visit Have you been in the hospital since your No last visit? Has dressing in place as prescribed Yes Has compression in place as prescribed N/A Has offloadiing in place as prescribed N/A Experienced any changes in pain level or No management Left Footwear Regular Shoe Right Footwear Regular Shoe Pain Scale: 0-10 Numeric Is Patient Pain Free? Yes DEBBI Lynn Nurse 1 - General Ulcer Measurement Start: 02/24/23 15:21 Freq: Status: Active Protocol: Activity Type Activity Date Activity User E-sign Co-sign Detail Recorded Client Recorded Date Recorded By Document 02/24/23 15:21 [facility] Desktop 02/24/23 15:34 [facility] 02/24/23 15:21 Wound Center Nurse 1 #1- sacral -Combined with other wound No -Current Size (cm) - Length 5 -Current Size (cm) - Width 2 -Current Size (cm) - Depth 5 -Total Square Cm 10 -Photo Taken No -Exudate Amt Large -Exudate Type Serosanguineous -Wound Margin Distinct, Outline Attached -Granulation Amt Large (67-100%) -Granulation Quality Red -Slough/Fibrin No -Necrosis Amt None Present (0 %) -Texture (Neda-wound Skin Appearance) Assessed, Scarring -Moisture (Neda-wound Skin Appearance) Assessed -Color (Neda-wound Skin Appearance) Assessed -Temperature (Neda-wound Skin No Abnormality Appearance) (Pt Warm) -Tenderness on Palpation (Neda-wound No Skin Appearance) -Ulcer Cleansing Soap and Water -Foul Odor after Cleansing No WC - Nurse 2 - General Ulcer CM Notes Start: 02/24/23 15:21 Freq: Status: Active Protocol: Activity Type Activity Date Activity User E-sign Co-sign Detail Recorded Client Recorded Date Recorded By Document 02/24/23 15:46 Laptop 02/24/23 15:49 02/24/23 15:46 Wound Center Nurse 2 -Time 15:48 -Correct Patient Yes -Correct Side, Site, Position Yes -Correct Procedure Yes -Procedure Performed Yes -Type of Procedure Debridement -Clinical Debridement Muscle / Fascia -Tissue Removed Muscle -Post Debridement (cm) - Length 5.0 -Post Debridement (cm) - Width 1.5 -Post Debridement (cm) - Depth 4.8 -Total Square (Post) (cm) 7.50 -Area of Debridement (cm) - Length 5.0 -Area of Debridement (cm) - Width 1.5 -Total Square (Area) (cm) 7.50 -Tunneling No -Undermining/Tunneling No -Circular Undermining No -Wound/Ulcer Outcome Not Healed -Ulcer Cleansing Rinsed/ Irrigated with Saline -Foul Odor after Cleansing No -Bioengineered Tissue No -Bleeding Controlled with Pressure -Treatment Response Procedure Tolerated Well -Offloading No -Pressure Reduction Wheelchair cushion -Debridement - Muscle / Fascia, 1st Yes 20sq cm Pain Scale: 0-10 Numeric Is Patient Pain Free? Yes - Nurse 3 - General Ulcer D/C NN Start: 02/24/23 15:21 Freq: Status: Active Protocol: Activity Type Activity Date Activity User E-sign Co-sign Detail Recorded Client Recorded Date Recorded By Document 02/24/23 16:16 [facility] Desktop 02/24/23 16:17 [facility] 02/24/23 16:16 Wound Care Center Nurse 3 #1- sacral -Ulcer Cleansing Rinsed/ Irrigated with Saline -Foul Odor after Cleansing No -Negative Pressure Wound Therapy Continue -Setting (mmHg) 150 -Negative Pressure is Continuous -NPWT Application Charge NPWT & Debridement (nc ) Treatment Response Procedure Tolerated Well Pain Scale: 0-10 Numeric Is Patient Pain Free? Yes - Visit Discharge Discharge Condition Stable Ambulatory Status Wheelchair Transportation Private Auto Assessment/Plan Assessment/Plan (1) Sacral decubitus ulcer, stage IV: CODE(S): L89.154 - Pressure ulcer of sacral region, stage 4 (2) Osteomyelitis: CODE(S): M86.9 - Osteomyelitis, unspecified QUALIFIERS: Osteomyelitis location: other site Osteomyelitis type: other chronic Qualified Code(s): M86.68 - Other chronic osteomyelitis, other site (3) Immobility syndrome (paraplegic): CODE(S): M62.3 - Immobility syndrome (paraplegic) (4) Multiple sclerosis: CODE(S): G35 - Multiple sclerosis (5) Long-term current use of rituximab: CODE(S): Z79.620 - jail (current) use of immunosuppressive biologic (6) Former smoker: CODE(S): Z87.891 - Personal history of nicotine dependence (7) UTI (urinary tract infection): CODE(S): N39.0 - Urinary tract infection, site not specified PLAN: Plan Continue the VAC at 150 mmHg. Kocuria kristinae in the bone is positive for osteomyelitis. It is significant and should be treated since it didn't show up in the soft tissue culture. She was placed on Augmentin per Infectious Diseases recommendation. She has finished the Augmentin. On 10/30/22, it was 20.1. Encourage nutritional supplementation with protein to help the healing process. Last 2021 she had diagnosis of osteomyelitis. She was placed on IV antibiotics per Infectious Diseases for 6 weeks until January,. This is important because it establishes a timeline for chronic refractory osteomyelitis. She is a candidate for HBO Treatments. We have received insurance approval for the HBO treatments. Usual amount is 40-60 treatments. She had a CXR on 01/06/23. It showed no evidence of acute cardiopulmonary process. No evidence of congestive heart failure. No evidence pneumothorax. No focal infiltrates, consolidations, or effusions. I looked in her ears with an otoscope at her visit on 01/06/23. She had normal tympanic membranes. No bleeding was seen in the tympanic membranes. No fluid was seen behind the tympanic membranes. She has started the HBO treatments and is tolerating them thus far. She will continue the HBO treatments as improvement has been noted with granulation tissue over the bone. She had a Urinalysis on 02/10/23. It showed Leukocyte Esterase. Urine Culture showed Klebsiella pneumoniae. She was treated with Cipro. Today her symptoms have resolved. Followup 2 weeks.
[2023-02-25 15:16] VITALS: BP 107/53; BP 89/58; PULSE 107; PULSE 62; RESP 18; TEMP 35.9; TEMP 36.4
--- NOTE | 2023-02-26 13:12 | PCM.HBO.PN ---
History of Present Illness Date of Service: 02/26/23 Chief Complaint: Sacral pressure sore, Stage IV. History of Wound: Surgery 12/18/22 - Excision sacral pressure sore, Stage IV, with partial ostectomy for osteomyelitis. Wound care - VAC. Operative Culture - Corynebacterium striatum in the soft tissue and Kocuria kristinae in the bone. Was treated perioperatively with Augmentin and Flagyl for a preop culture positive for Enterococcus faecalis and Anaerobes. Kocuria kristinae in the bone is positive for osteomyelitis. It is significant and should be treated since it didn't show up in the soft tissue culture. She was placed on Augmentin and is finishing them. Pathology - Negative for acute osteomyelitis. Chronic reparative and reactive change. Prealbumin from 10/30/22 was 20.1. Encourage nutritional supplementation with protein to help the healing process. MRI Pelvis from 08/21/22 - 2.8 cm decubitus ulcer at the base of the coccyx without discrete evidence of osteomyelitis. Last 2021 she had diagnosis of osteomyelitis. She was placed on IV antibiotics per Infectious Diseases for 6 weeks until January,. This is important because it establishes a timeline for chronic refractory osteomyelitis. 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 Hyperbaric oxygen therapy was administered as per the facility's protocol.? Hyperbaric oxygen therapy was administered at 2.0 LIONEL in 100% oxygen for 90 minutes without air breaks.? The patient tolerated hyperbaric oxygen therapy well, without complications or complaints. Upon emergence of the hyperbaric chamber, the patient's vital signs remained stable.? She was discharged in good condition. Objective Data Objective Data Vital Signs: Vital Signs Temp Pulse Resp BP O2 Del Method 97.6 F L 107 H 18 89/58 L Room Air 02/25/23 15:16 02/25/23 15:16 02/25/23 15:16 02/25/23 15:16 02/24/23 15:21 Oxygen Delivery Method Room Air Weight: 145 lb 9.6 oz Body Mass Index (BMI) 22.8 Exam Physical Exam Const alert, oriented x3 and no apparent distress HEENT EAC's normal and TM's normal bilaterally Chest inspection of chest normal Resp normal respiratory effort Auscultation: clear to auscultation bilaterally Cardio regular rate and regular rhythm Psych mental status grossly normal, thought process normal, cooperative, affect normal and speech normal Nursing Assessment and Debridement Post-Debridement Measurements and Additional Note: Post-Debridement Measurements/Treatment - Nurse 1 - General Ulcer Assessment Start: 02/24/23 15:21 Freq: Status: Active Protocol: BENIGNO Activity Type Activity Date Activity User E-sign Co-sign Detail Recorded Client Recorded Date Recorded By Document 02/24/23 15:21 [facility] Desktop 02/24/23 15:34 [facility] 02/24/23 15:21 - Today's Visit Information Type of service Follow-up Visit (Physician/ENERGY RATER ) Arrival Mode Wheelchair Transfer Assistance Transfer Board Transfer Assist (Other) 1 Patient Identification Verified (Name & Yes ) Patient Requires Transmission-Based No Precautions Height and Weight Body Mass Index (BMI) 22.8 BMI Classification Normal Vital Signs Temperature (97.8 F-99.1 F) 98.5 F Temperature Source Temporal Pulse Rate (60-100) 93 Pulse Location Monitor Respiratory Rate (12-18) 16 Respiratory rate source Observation Oxygen Delivery Method Room Air Blood Pressure (90/60-120/80) 118/64 Blood Pressure Mean (mm Hg) 82 Source Monitor Position Sitting Blood Pressure Location Left Arm History Since Last Visit- (Skip if this is Patient's initial visit) Have you changed medications since your No last visit? Any new allergies or adverse reactions No Had a fall/change in ADL's that may No increase risk of falls Signs or symptoms of abuse and/or No neglect since last visit Have you been in the hospital since your No last visit? Has dressing in place as prescribed Yes Has compression in place as prescribed N/A Has offloadiing in place as prescribed N/A Experienced any changes in pain level or No management Left Footwear Regular Shoe Right Footwear Regular Shoe Pain Scale: 0-10 Numeric Is Patient Pain Free? Yes - Nurse 1 - General Ulcer Measurement Start: 02/24/23 15:21 Freq: Status: Active Protocol: Activity Type Activity Date Activity User E-sign Co-sign Detail Recorded Client Recorded Date Recorded By Document 02/24/23 15:21 [employer] Desktop 02/24/23 15:34 [facility] 02/24/23 15:21 Wound Center Nurse 1 #1- sacral -Combined with other wound No -Current Size (cm) - Length 5 -Current Size (cm) - Width 2 -Current Size (cm) - Depth 5 -Total Square Cm 10 -Photo Taken No -Exudate Amt Large -Exudate Type Serosanguineous -Wound Margin Distinct, Outline Attached -Granulation Amt Large (67-100%) -Granulation Quality Red -Slough/Fibrin No -Necrosis Amt None Present (0 %) -Texture (Neda-wound Skin Appearance) Assessed, Scarring -Moisture (Neda-wound Skin Appearance) Assessed -Color (Neda-wound Skin Appearance) Assessed -Temperature (Neda-wound Skin No Abnormality Appearance) (Pt Warm) -Tenderness on Palpation (Neda-wound No Skin Appearance) -Ulcer Cleansing Soap and Water -Foul Odor after Cleansing No WC - Nurse 2 - General Ulcer CM Notes Start: 02/24/23 15:21 Freq: Status: Active Protocol: Activity Type Activity Date Activity User E-sign Co-sign Detail Recorded Client Recorded Date Recorded By Document 02/24/23 15:46 Laptop 02/24/23 15:49 02/24/23 15:46 Wound Center Nurse 2 -Time 15:48 -Correct Patient Yes -Correct Side, Site, Position Yes -Correct Procedure Yes -Procedure Performed Yes -Type of Procedure Debridement -Clinical Debridement Muscle / Fascia -Tissue Removed Muscle -Post Debridement (cm) - Length 5.0 -Post Debridement (cm) - Width 1.5 -Post Debridement (cm) - Depth 4.8 -Total Square (Post) (cm) 7.50 -Area of Debridement (cm) - Length 5.0 -Area of Debridement (cm) - Width 1.5 -Total Square (Area) (cm) 7.50 -Tunneling No -Undermining/Tunneling No -Circular Undermining No -Wound/Ulcer Outcome Not Healed -Ulcer Cleansing Rinsed/ Irrigated with Saline -Foul Odor after Cleansing No -Bioengineered Tissue No -Bleeding Controlled with Pressure -Treatment Response Procedure Tolerated Well -Offloading No -Pressure Reduction Wheelchair cushion -Debridement - Muscle / Fascia, 1st Yes 20sq cm Pain Scale: 0-10 Numeric Is Patient Pain Free? Yes WC - Nurse 3 - General Ulcer D/C NN Start: 02/24/23 15:21 Freq: Status: Active Protocol: Activity Type Activity Date Activity User E-sign Co-sign Detail Recorded Client Recorded Date Recorded By Document 02/24/23 16:16 [facility] Desktop 02/24/23 16:17 [facility] 02/24/23 16:16 Wound Care Center Nurse 3 #1- sacral -Ulcer Cleansing Rinsed/ Irrigated with Saline -Foul Odor after Cleansing No -Negative Pressure Wound Therapy Continue -Setting (mmHg) 150 -Negative Pressure is Continuous -NPWT Application Charge NPWT & Debridement (nc ) Treatment Response Procedure Tolerated Well Pain Scale: 0-10 Numeric Is Patient Pain Free? Yes WC - Visit Discharge Discharge Condition Stable Ambulatory Status Wheelchair Transportation Private Auto Assessment/Plan Assessment/Plan (1) Osteomyelitis: CODE(S): M86.9 - Osteomyelitis, unspecified QUALIFIERS: Osteomyelitis location: other site Osteomyelitis type: other chronic Qualified Code(s): M86.68 - Other chronic osteomyelitis, other site (2) Sacral decubitus ulcer, stage IV: CODE(S): L89.154 - Pressure ulcer of sacral region, stage 4 PLAN: Plan She is tolerating and benefiting from hyperbaric oxygen therapy which will be continued per the patient's medical plan.
[2023-02-26 15:15] VITALS: BP 117/59; BP 85/43; PULSE 100; PULSE 61; RESP 18; TEMP 36.6; TEMP 36.7
--- NOTE | 2023-02-27 13:00 | PCM.HBO.PN ---
History of Present Illness Date of Service: 02/27/23 Chief Complaint: Sacral pressure sore, Stage IV. History of Wound: Surgery 12/18/22 - Excision sacral pressure sore, Stage IV, with partial ostectomy for osteomyelitis. Wound care - VAC. Operative Culture - Corynebacterium striatum in the soft tissue and Kocuria kristinae in the bone. Was treated perioperatively with Augmentin and Flagyl for a preop culture positive for Enterococcus faecalis and Anaerobes. Kocuria kristinae in the bone is positive for osteomyelitis. It is significant and should be treated since it didn't show up in the soft tissue culture. She was placed on Augmentin and is finishing them. Pathology - Negative for acute osteomyelitis. Chronic reparative and reactive change. Prealbumin from 10/30/22 was 20.1. Encourage nutritional supplementation with protein to help the healing process. MRI Pelvis from 08/21/22 - 2.8 cm decubitus ulcer at the base of the coccyx without discrete evidence of osteomyelitis. At her last Wound Center visit on 02/10/23, she had urinary symptoms. A Urinalysis was done which did not report any WBC, and no Bacteria reported. The Leukocyte Esterase was 500. She was started on Cipro and has finished them. A Urine Culture showed Klebsiella pneumoniae. It is sensitive to Cipro. Today her urinary symptoms have resolved. Last 2021 she had diagnosis of osteomyelitis. She was placed on IV antibiotics per Infectious Diseases for 6 weeks until January,. This is important because it establishes a timeline for chronic refractory osteomyelitis. 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 Hyperbaric oxygen therapy was administered as per the facility's protocol.? Hyperbaric oxygen therapy was administered at 2.0 LIONEL in 100% oxygen for 90 minutes without air breaks.? The patient tolerated hyperbaric oxygen therapy well, without complications or complaints. Upon emergence of the hyperbaric chamber, the patient's vital signs remained stable.? She was discharged in good condition. Objective Data Objective Data Vital Signs: Vital Signs Temp Pulse Resp BP O2 Del Method 98.1 F 100 18 85/43 L Room Air 02/26/23 15:15 02/26/23 15:15 02/26/23 15:15 02/26/23 15:15 02/24/23 15:21 Oxygen Delivery Method Room Air Weight: 145 lb 9.6 oz Body Mass Index (BMI) 22.8 Exam Physical Exam Const alert, oriented x3 and no apparent distress HEENT EAC's normal and TM's normal bilaterally Chest inspection of chest normal Resp normal respiratory effort Auscultation: clear to auscultation bilaterally Cardio regular rate and regular rhythm Psych mental status grossly normal, thought process normal, cooperative, affect normal and speech normal Nursing Assessment and Debridement Post-Debridement Measurements and Additional Note: Post-Debridement Measurements/Treatment WC - Nurse 1 - General Ulcer Assessment Start: 02/24/23 15:21 Freq: Status: Active Protocol: DEBBIRostelecomKaushik Activity Type Activity Date Activity User E-sign Co-sign Detail Recorded Client Recorded Date Recorded By Document 02/24/23 15:21 [facility] Desktop 02/24/23 15:34 [facility] 02/24/23 15:21 WC - Today's Visit Information Type of service Follow-up Visit (Physician/BEHAVIORAL PSYCHOLOGIST ) Arrival Mode Wheelchair Transfer Assistance Transfer Board Transfer Assist (Other) 1 Patient Identification Verified (Name & Yes ) Patient Requires Transmission-Based No Precautions Height and Weight Body Mass Index (BMI) 22.8 BMI Classification Normal Vital Signs Temperature (97.8 F-99.1 F) 98.5 F Temperature Source Temporal Pulse Rate (60-100) 93 Pulse Location Monitor Respiratory Rate (12-18) 16 Respiratory rate source Observation Oxygen Delivery Method Room Air Blood Pressure (90/60-120/80) 118/64 Blood Pressure Mean (mm Hg) 82 Source Monitor Position Sitting Blood Pressure Location Left Arm History Since Last Visit- (Skip if this is Patient's initial visit) Have you changed medications since your No last visit? Any new allergies or adverse reactions No Had a fall/change in ADL's that may No increase risk of falls Signs or symptoms of abuse and/or No neglect since last visit Have you been in the hospital since your No last visit? Has dressing in place as prescribed Yes Has compression in place as prescribed N/A Has offloadiing in place as prescribed N/A Experienced any changes in pain level or No management Left Footwear Regular Shoe Right Footwear Regular Shoe Pain Scale: 0-10 Numeric Is Patient Pain Free? Yes WC - Nurse 1 - General Ulcer Measurement Start: 02/24/23 15:21 Freq: Status: Active Protocol: Activity Type Activity Date Activity User E-sign Co-sign Detail Recorded Client Recorded Date Recorded By Document 02/24/23 15:21 [facility] Desktop 02/24/23 15:34 [facility] 02/24/23 15:21 Wound Center Nurse 1 #1- sacral -Combined with other wound No -Current Size (cm) - Length 5 -Current Size (cm) - Width 2 -Current Size (cm) - Depth 5 -Total Square Cm 10 -Photo Taken No -Exudate Amt Large -Exudate Type Serosanguineous -Wound Margin Distinct, Outline Attached -Granulation Amt Large (67-100%) -Granulation Quality Red -Slough/Fibrin No -Necrosis Amt None Present (0 %) -Texture (Neda-wound Skin Appearance) Assessed, Scarring -Moisture (Neda-wound Skin Appearance) Assessed -Color (Neda-wound Skin Appearance) Assessed -Temperature (Neda-wound Skin No Abnormality Appearance) (Pt Warm) -Tenderness on Palpation (Neda-wound No Skin Appearance) -Ulcer Cleansing Soap and Water -Foul Odor after Cleansing No WC - Nurse 2 - General Ulcer CM Notes Start: 02/24/23 15:21 Freq: Status: Active Protocol: Activity Type Activity Date Activity User E-sign Co-sign Detail Recorded Client Recorded Date Recorded By Document 02/24/23 15:46 Laptop 02/24/23 15:49 02/24/23 15:46 Wound Center Nurse 2 -Time 15:48 -Correct Patient Yes -Correct Side, Site, Position Yes -Correct Procedure Yes -Procedure Performed Yes -Type of Procedure Debridement -Clinical Debridement Muscle / Fascia -Tissue Removed Muscle -Post Debridement (cm) - Length 5.0 -Post Debridement (cm) - Width 1.5 -Post Debridement (cm) - Depth 4.8 -Total Square (Post) (cm) 7.50 -Area of Debridement (cm) - Length 5.0 -Area of Debridement (cm) - Width 1.5 -Total Square (Area) (cm) 7.50 -Tunneling No -Undermining/Tunneling No -Circular Undermining No -Wound/Ulcer Outcome Not Healed -Ulcer Cleansing Rinsed/ Irrigated with Saline -Foul Odor after Cleansing No -Bioengineered Tissue No -Bleeding Controlled with Pressure -Treatment Response Procedure Tolerated Well -Offloading No -Pressure Reduction Wheelchair cushion -Debridement - Muscle / Fascia, 1st Yes 20sq cm Pain Scale: 0-10 Numeric Is Patient Pain Free? Yes - Nurse 3 - General Ulcer D/C NN Start: 02/24/23 15:21 Freq: Status: Active Protocol: Activity Type Activity Date Activity User E-sign Co-sign Detail Recorded Client Recorded Date Recorded By Document 02/24/23 16:16 [facility] Desktop 02/24/23 16:17 [facility] 02/24/23 16:16 Wound Care Center Nurse 3 #1- sacral -Ulcer Cleansing Rinsed/ Irrigated with Saline -Foul Odor after Cleansing No -Negative Pressure Wound Therapy Continue -Setting (mmHg) 150 -Negative Pressure is Continuous -NPWT Application Charge NPWT & Debridement (nc ) Treatment Response Procedure Tolerated Well Pain Scale: 0-10 Numeric Is Patient Pain Free? Yes WC - Visit Discharge Discharge Condition Stable Ambulatory Status Wheelchair Transportation Private Auto Assessment/Plan Assessment/Plan (1) Osteomyelitis: CODE(S): M86.9 - Osteomyelitis, unspecified QUALIFIERS: Osteomyelitis location: other site Osteomyelitis type: other chronic Qualified Code(s): M86.68 - Other chronic osteomyelitis, other site (2) Sacral decubitus ulcer, stage IV: CODE(S): L89.154 - Pressure ulcer of sacral region, stage 4 PLAN: Plan She is tolerating and benefiting from hyperbaric oxygen therapy which will be continued per the patient's medical plan.
[2023-02-27 13:04] VITALS: BP 100/64; BP 112/54; PULSE 66; PULSE 99; RESP 18; TEMP 36.2; TEMP 36.6
[2023-02-28 10:18] VITALS: BP 113/71; BP 126/70; PULSE 70; PULSE 83; RESP 16; TEMP 36.1; TEMP 36.2
--- NOTE | 2023-02-28 14:57 | PCM.HBO.PN ---
History of Present Illness Date of Service: 02/28/23 Chief Complaint: Sacral pressure sore, Stage IV. History of Wound: Surgery 12/18/22 - Excision sacral pressure sore, Stage IV, with partial ostectomy for osteomyelitis. Wound care - VAC. Operative Culture - Corynebacterium striatum in the soft tissue and Kocuria kristinae in the bone. Was treated perioperatively with Augmentin and Flagyl for a preop culture positive for Enterococcus faecalis and Anaerobes. Kocuria kristinae in the bone is positive for osteomyelitis. It is significant and should be treated since it didn't show up in the soft tissue culture. She was placed on Augmentin and is finishing them. Pathology - Negative for acute osteomyelitis. Chronic reparative and reactive change. Prealbumin from 10/30/22 was 20.1. Encourage nutritional supplementation with protein to help the healing process. MRI Pelvis from 08/21/22 - 2.8 cm decubitus ulcer at the base of the coccyx without discrete evidence of osteomyelitis. At her last Wound Center visit on 02/10/23, she had urinary symptoms. A Urinalysis was done which did not report any WBC, and no Bacteria reported. The Leukocyte Esterase was 500. She was started on Cipro and has finished them. A Urine Culture showed Klebsiella pneumoniae. It is sensitive to Cipro. Today her urinary symptoms have resolved. Last 2021 she had diagnosis of osteomyelitis. She was placed on IV antibiotics per Infectious Diseases for 6 weeks until January,. This is important because it establishes a timeline for chronic refractory osteomyelitis. Progress of Wound: Sacral ulcer improved. There is more granulation tissue covering the bone. Subjective Subjective Today she presents for hyperbaric oxygen therapy session 20 of 30 for treatment of chronic refractory osteomyelitis of her sacrum with stage 4 pressure ulcer. Hyperbaric oxygen therapy was administered as per the facility's protocol.? Hyperbaric oxygen therapy was administered at 2.0 LIONEL in 100% oxygen for 90 minutes without air breaks.? The patient tolerated hyperbaric oxygen therapy well, without complications or complaints. Upon emergence of the hyperbaric chamber, the patient's vital signs remained stable.? She was discharged in good condition. Objective Data Objective Data Vital Signs: Vital Signs Temp Pulse Resp BP O2 Del Method 97.1 F L 83 16 126/70 H Room Air 02/28/23 10:18 02/28/23 10:18 02/28/23 10:18 02/28/23 10:18 02/24/23 15:21 Oxygen Delivery Method Room Air Weight: 66.043 kg Body Mass Index (BMI) 22.8 Exam Nursing Assessment and Debridement Post-Debridement Measurements and Additional Note: Post-Debridement Measurements/Treatment WC - Nurse 3 - General Ulcer D/C NN Start: 02/24/23 15:21 Freq: Status: Active Protocol: Activity Type Activity Date Activity User E-sign Co-sign Detail Recorded Client Recorded Date Recorded By Document 02/28/23 10:18 Laptop 02/28/23 10:23 02/28/23 10:18 Pain Scale: 0-10 Numeric Is Patient Pain Free? Yes WC - Visit Discharge Discharge Condition Stable Ambulatory Status Wheelchair Transportation Private Auto Medication Reconcilliation completed & No provided to patient/care provider Clinical Summary of Care Provided No Assessment/Plan Assessment/Plan (1) Osteomyelitis: CODE(S): M86.9 - Osteomyelitis, unspecified QUALIFIERS: Osteomyelitis type: other chronic Osteomyelitis location: other site Qualified Code(s): M86.68 - Other chronic osteomyelitis, other site (2) Sacral decubitus ulcer, stage IV: CODE(S): L89.154 - Pressure ulcer of sacral region, stage 4 PLAN: Plan She is tolerating and benefiting from hyperbaric oxygen therapy which will be continued per the patient's medical plan.
--- NOTE | 2023-03-04 13:40 | PCM.HBO.PN ---
History of Present Illness Date of Service: 03/04/23 Chief Complaint: Sacral pressure sore, Stage IV. History of Wound: Surgery 12/18/22 - Excision sacral pressure sore, Stage IV, with partial ostectomy for osteomyelitis. Wound care - VAC. Operative Culture - Corynebacterium striatum in the soft tissue and Kocuria kristinae in the bone. Was treated perioperatively with Augmentin and Flagyl for a preop culture positive for Enterococcus faecalis and Anaerobes. Kocuria kristinae in the bone is positive for osteomyelitis. It is significant and should be treated since it didn't show up in the soft tissue culture. She was placed on Augmentin and is finishing them. Pathology - Negative for acute osteomyelitis. Chronic reparative and reactive change. Prealbumin from 10/30/22 was 20.1. Encourage nutritional supplementation with protein to help the healing process. MRI Pelvis from 08/21/22 - 2.8 cm decubitus ulcer at the base of the coccyx without discrete evidence of osteomyelitis. At her last Wound Center visit on 02/10/23, she had urinary symptoms. A Urinalysis was done which did not report any WBC, and no Bacteria reported. The Leukocyte Esterase was 500. She was started on Cipro and has finished them. A Urine Culture showed Klebsiella pneumoniae. It is sensitive to Cipro. Today her urinary symptoms have resolved. Last 2021 she had diagnosis of osteomyelitis. She was placed on IV antibiotics per Infectious Diseases for 6 weeks until January,. This is important because it establishes a timeline for chronic refractory osteomyelitis. Progress of Wound: Sacral ulcer improved. There is more granulation tissue covering the bone. 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 Hyperbaric oxygen therapy was administered as per the facility's protocol.? Hyperbaric oxygen therapy was administered at 2.0 LIONEL in 100% oxygen for 90 minutes without air breaks.? The patient tolerated hyperbaric oxygen therapy well, without complications or complaints. Upon emergence of the hyperbaric chamber, the patient's vital signs remained stable.? She was discharged in good condition. Objective Data Objective Data Vital Signs: Vital Signs Temp Pulse Resp BP O2 Del Method 97.1 F L 83 16 126/70 H Room Air 02/28/23 10:18 02/28/23 10:18 02/28/23 10:18 02/28/23 10:18 02/24/23 15:21 Oxygen Delivery Method Room Air Weight: 145 lb 9.6 oz Body Mass Index (BMI) 22.8 Exam Physical Exam Const alert, oriented x3 and no apparent distress HEENT EAC's normal and TM's normal bilaterally Chest inspection of chest normal Resp normal respiratory effort Auscultation: clear to auscultation bilaterally Cardio regular rate and regular rhythm Psych mental status grossly normal, thought process normal, cooperative, affect normal and speech normal Assessment/Plan Assessment/Plan (1) Osteomyelitis: CODE(S): M86.9 - Osteomyelitis, unspecified QUALIFIERS: Osteomyelitis location: other site Osteomyelitis type: other chronic Qualified Code(s): M86.68 - Other chronic osteomyelitis, other site (2) Sacral decubitus ulcer, stage IV: CODE(S): L89.154 - Pressure ulcer of sacral region, stage 4 PLAN: Plan She is tolerating and benefiting from hyperbaric oxygen therapy which will be continued per the patient's medical plan.
[2023-03-04 15:28] VITALS: BP 110/32; BP 112/56; PULSE 74; PULSE 96; RESP 18; TEMP 36.4; TEMP 36.6
[2023-03-05 11:38] VITALS: BP 103/65; BP 107/67; PULSE 70; PULSE 89; RESP 18; TEMP 36.4; TEMP 36.6
--- NOTE | 2023-03-05 11:51 | PCM.HBO.PN ---
History of Present Illness Date of Service: 03/05/23 Chief Complaint: Sacral pressure sore, Stage IV. History of Wound: Surgery 12/18/22 - Excision sacral pressure sore, Stage IV, with partial ostectomy for osteomyelitis. Wound care - VAC. Operative Culture - Corynebacterium striatum in the soft tissue and Kocuria kristinae in the bone. Was treated perioperatively with Augmentin and Flagyl for a preop culture positive for Enterococcus faecalis and Anaerobes. Kocuria kristinae in the bone is positive for osteomyelitis. It is significant and should be treated since it didn't show up in the soft tissue culture. She was placed on Augmentin and is finishing them. Pathology - Negative for acute osteomyelitis. Chronic reparative and reactive change. Prealbumin from 10/30/22 was 20.1. Encourage nutritional supplementation with protein to help the healing process. MRI Pelvis from 08/21/22 - 2.8 cm decubitus ulcer at the base of the coccyx without discrete evidence of osteomyelitis. At her last Wound Center visit on 02/10/23, she had urinary symptoms. A Urinalysis was done which did not report any WBC, and no Bacteria reported. The Leukocyte Esterase was 500. She was started on Cipro and has finished them. A Urine Culture showed Klebsiella pneumoniae. It is sensitive to Cipro. Today her urinary symptoms have resolved. Last 2021 she had diagnosis of osteomyelitis. She was placed on IV antibiotics per Infectious Diseases for 6 weeks until January,. This is important because it establishes a timeline for chronic refractory osteomyelitis. Progress of Wound: Sacral ulcer improved. There is more granulation tissue covering the bone. Subjective Subjective No concerns Objective Data Objective Data Tolerating treatments well Vital Signs: Vital Signs Temp Pulse Resp BP O2 Del Method 97.6 F L 89 18 103/65 Room Air 03/05/23 11:38 03/05/23 11:38 03/05/23 11:38 03/05/23 11:38 02/24/23 15:21 Oxygen Delivery Method Room Air Weight: 145 lb 9.6 oz Body Mass Index (BMI) 22.8 Exam Physical Exam Const alert, oriented x3 and no apparent distress HEENT EAC's normal and TM's normal bilaterally Chest inspection of chest normal Resp normal respiratory effort Auscultation: clear to auscultation bilaterally Cardio regular rate and regular rhythm Psych mental status grossly normal, thought process normal, cooperative, affect normal and speech normal Nursing Assessment and Debridement Post-Debridement Measurements and Additional Note: Post-Debridement Measurements/Treatment WC - Nurse 1 - General Ulcer Measurement Start: 02/24/23 15:21 Freq: Status: Active Protocol: Activity Type Activity Date Activity User E-sign Co-sign Detail Recorded Client Recorded Date Recorded By Document 03/05/23 11:38 PL [id number] 03/05/23 11:42 PL 03/05/23 11:38 Wound Center Nurse 1 #1- sacral -Current Size (cm) - Length 4.5 -Current Size (cm) - Width 1.5 -Current Size (cm) - Depth 5.0 -Total Square Cm 6.75 Assessment/Plan Assessment/Plan (1) Osteomyelitis: CODE(S): M86.9 - Osteomyelitis, unspecified QUALIFIERS: Osteomyelitis type: other chronic Osteomyelitis location: other site Qualified Code(s): M86.68 - Other chronic osteomyelitis, other site (2) Sacral decubitus ulcer, stage IV: CODE(S): L89.154 - Pressure ulcer of sacral region, stage 4 PLAN: Plan She is tolerating and benefiting from hyperbaric oxygen therapy which will be continued per the patient's medical plan. Patient is to return for further treatments
[2023-03-07 10:28] VITALS: BP 115/42; BP 88/62; PULSE 70; PULSE 96; RESP 16; TEMP 36.1; TEMP 36.2
--- NOTE | 2023-03-07 12:38 | PCM.HBO.PN ---
History of Present Illness Date of Service: 03/07/23 Chief Complaint: Sacral pressure sore, Stage IV. History of Wound: Surgery 12/18/22 - Excision sacral pressure sore, Stage IV, with partial ostectomy for osteomyelitis. Wound care - VAC. Operative Culture - Corynebacterium striatum in the soft tissue and Kocuria kristinae in the bone. Was treated perioperatively with Augmentin and Flagyl for a preop culture positive for Enterococcus faecalis and Anaerobes. Kocuria kristinae in the bone is positive for osteomyelitis. It is significant and should be treated since it didn't show up in the soft tissue culture. She was placed on Augmentin and is finishing them. Pathology - Negative for acute osteomyelitis. Chronic reparative and reactive change. Prealbumin from 10/30/22 was 20.1. Encourage nutritional supplementation with protein to help the healing process. MRI Pelvis from 08/21/22 - 2.8 cm decubitus ulcer at the base of the coccyx without discrete evidence of osteomyelitis. At her last Wound Center visit on 02/10/23, she had urinary symptoms. A Urinalysis was done which did not report any WBC, and no Bacteria reported. The Leukocyte Esterase was 500. She was started on Cipro and has finished them. A Urine Culture showed Klebsiella pneumoniae. It is sensitive to Cipro. Today her urinary symptoms have resolved. Last 2021 she had diagnosis of osteomyelitis. She was placed on IV antibiotics per Infectious Diseases for 6 weeks until January,. This is important because it establishes a timeline for chronic refractory osteomyelitis. Progress of Wound: Sacral ulcer improved. There is more granulation tissue covering the bone. 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 Hyperbaric oxygen therapy was administered as per the facility's protocol.? Hyperbaric oxygen therapy was administered at 2.0 LIONEL in 100% oxygen for 90 minutes without air breaks.? The patient tolerated hyperbaric oxygen therapy well, without complications or complaints. Upon emergence of the hyperbaric chamber, the patient's vital signs remained stable.? She was discharged in good condition. Objective Data Objective Data Vital Signs: Vital Signs Temp Pulse Resp BP O2 Del Method 97.1 F L 96 16 88/62 L Room Air 03/07/23 10:28 03/07/23 10:28 03/07/23 10:28 03/07/23 10:28 02/24/23 15:21 Oxygen Delivery Method Room Air Weight: 66.043 kg Body Mass Index (BMI) 22.8 Exam Physical Exam Const alert, oriented x3 and no apparent distress Psych mental status grossly normal, thought process normal, cooperative, affect normal and speech normal Nursing Assessment and Debridement Post-Debridement Measurements and Additional Note: Post-Debridement Measurements/Treatment WC - Nurse 1 - General Ulcer Measurement Start: 02/24/23 15:21 Freq: Status: Active Protocol: Activity Type Activity Date Activity User E-sign Co-sign Detail Recorded Client Recorded Date Recorded By Document 03/05/23 11:38 PL [id number] 03/05/23 11:42 PL 03/05/23 11:38 Wound Center Nurse 1 #1- sacral -Current Size (cm) - Length 4.5 -Current Size (cm) - Width 1.5 -Current Size (cm) - Depth 5.0 -Total Square Cm 6.75 - Nurse 3 - General Ulcer D/C NN Start: 02/24/23 15:21 Freq: Status: Active Protocol: Activity Type Activity Date Activity User E-sign Co-sign Detail Recorded Client Recorded Date Recorded By Document 03/07/23 10:28 Laptop 03/07/23 10:32 03/07/23 10:28 Pain Scale: 0-10 Numeric Is Patient Pain Free? Yes WC - Visit Discharge Discharge Condition Stable Ambulatory Status Wheelchair Transportation Private Auto Assessment/Plan Assessment/Plan (1) Osteomyelitis: CODE(S): M86.9 - Osteomyelitis, unspecified QUALIFIERS: Osteomyelitis type: other chronic Osteomyelitis location: other site Qualified Code(s): M86.68 - Other chronic osteomyelitis, other site (2) Sacral decubitus ulcer, stage IV: CODE(S): L89.154 - Pressure ulcer of sacral region, stage 4 PLAN: Plan She is tolerating and benefiting from hyperbaric oxygen therapy which will be continued per the patient's medical plan.
[2023-03-10 15:12] VITALS: BMI 22.8
[2023-03-10 15:19] VITALS: BP 118/68; BP 97/62; PULSE 67; PULSE 89; RESP 18; TEMP 36.4
--- NOTE | 2023-03-10 15:52 | PN.PCM_ITS ---
History of Present Illness Date of Service: 03/10/23 Chief Complaint: Sacral pressure sore, Stage IV. History of Wound: Surgery 12/18/22 - Excision sacral pressure sore, Stage IV, with partial ostectomy for osteomyelitis. Wound care - VAC. Operative Culture - Corynebacterium striatum in the soft tissue and Kocuria kristinae in the bone. Was treated perioperatively with Augmentin and Flagyl for a preop culture positive for Enterococcus faecalis and Anaerobes. Kocuria kristinae in the bone is positive for osteomyelitis. It is significant and should be treated since it didn't show up in the soft tissue culture. She was placed on Augmentin and has finished them. Pathology - Negative for acute osteomyelitis. Chronic reparative and reactive change. Prealbumin from 10/30/22 was 20.1. Encourage nutritional supplementation with protein to help the healing process. MRI Pelvis from 08/21/22 - 2.8 cm decubitus ulcer at the base of the coccyx without discrete evidence of osteomyelitis. At her Wound Center visit on 02/10/23, she had urinary symptoms. A Urinalysis was done which did not report any WBC, and no Bacteria reported. The Leukocyte Esterase was 500. She was started on Cipro and has finished them. A Urine Culture showed Klebsiella pneumoniae. It is sensitive to Cipro. Today her urinary symptoms have resolved. Last 2021 she had diagnosis of osteomyelitis. She was placed on IV antibiotics per Infectious Diseases for 6 weeks until January,. This is important because it establishes a timeline for chronic refractory osteomyelitis. Progress of Wound: Sacral ulcer continues to improve. There is more granulation tissue covering the bone. Objective Data Objective Data Vital Signs: Vital Signs Temp Pulse Resp BP O2 Del Method 97.6 F L 89 18 118/68 Room Air 03/10/23 15:19 03/10/23 15:19 03/10/23 15:19 03/10/23 15:19 02/24/23 15:21 Oxygen Delivery Method Room Air Weight: 145 lb 9.6 oz Body Mass Index (BMI) 22.8 Prealbumin from 10/30/22 was 20.1. Encourage nutritional supplementation with protein to help the healing process. Lab / Micro Data Attestation: I reviewed the patient's lab results. Micro: Microbiology 12/18/22 11:14 Soft Tissue - Sacral Pressure Sore Culture - Corynebacterium striatum. 12/18/22 11:18 Bone - Sacral Pressure Sore Culture - Kocuria kristinae. Pathology - Negative for acute osteomyelitis. Chronic reparative and reactive change. Urinalysis from 02/10/23 showed increased Leukocyte Esterase. Urine Culture showed Klebsiella pneumoniae. She was treated with Cipro. Radiography Diagnostic Testing: Study: Chest PA and Lateral Date of Exam: 01/06/23 Exam# [id number] Ordering Dr: Aaron Gregory MD INDICATION: HYPERBARIC OXYGEN THERAPY EXAMINATION/TECHNIQUE: X-RAY - XR Chest 2 Views COMPARISON: No previous relevant examinations available for comparison.. FINDINGS: LIFE-SUPPORT AND LINES: 1. None HEART AND VESSELS: The cardiac silhouette, pulmonary vasculature have normal appearance. No evidence of congestive failure. LUNGS AND PLEURAL SPACES: Lungs are clear. No focal infiltrate, consolidation or effusions. No evidence of pneumothorax. No pulmonary mass is noted. MEDIASTINUM AND HILAR REGIONS: No masses adenopathy noted. No areas of calcification. Visualized upper airway is normal in position. BONY ELEMENTS: No acute bony changes noted. RAD/Chest PA and Lateral IMPRESSION: 1. No evidence of acute cardiopulmonary process Electronically Signed: Humberto Tolentino MD at 1:00 EDT Reading Location ID and State: [facility] / [place] Tel , Service support , Charges/Coding Procedures Integumentary [id number]: [id number] Global Visit (ICD-10 - L89.154, M86.9, M62.3, G35, Z79.620, Z87.891, N39.0) Debridement Note Debridement Note Wound debrided: #1 Sacral area. Laterality: Not Applicable Wound Grade/Stage: IV. Type of Debridement: Excisional debridement Anesthesia Used: 4% Lidocaine Solution and 5% Lidocaine Gel Depth: Down to and including healthy tissue, in the subcutaneous layer, to muscle and to bone (bone is palpable yet covered with granulation tissue. It was not debrided.) Percentage of wound debrided: 100 Instrument Used: 7mm curette Tissue Removed: subcutaneous tissue and muscle. Severity: Fat Layer Exposed (muscle is exposed. bone is palpable yet not exposed. It was not debrided.) Amount of bleeding with debridement: Mild Bleeding Controlled with: Pressure and Compression and gauze Patient tolerated procedure: Patient tolerated procedure well Post-Debridement Measurements and Additional Note: Post-Debridement Measurements/Treatment WC - Nurse 1 - General Ulcer Assessment Start: 02/24/23 15:21 Freq: Status: Active Protocol: DEBBI.[email or web address] Activity Type Activity Date Activity User E-sign Co-sign Detail Recorded Client Recorded Date Recorded By Document 02/24/23 15:21 BMF Desktop 02/24/23 15:34 BMF Document 03/10/23 15:12 DL Desktop 03/10/23 15:17 DL 02/24/23 03/10/23 15:21 15:12 WC - Today's Visit Information Type of service Follow-up Visit Follow-up Visit (Physician/CALTRANS EQUIPMENT OPERATOR (Physician/CALTRANS EQUIPMENT OPERATOR ) ) Arrival Mode Wheelchair Wheelchair Transfer Assistance Transfer Board Other Transfer Assist (Other) 1 2 Patient Identification Verified (Name & Yes Yes ) Patient Requires Transmission-Based No No Precautions Height and Weight Body Mass Index (BMI) 22.8 22.8 BMI Classification Normal Normal Vital Signs Temperature (97.8 F-99.1 F) 98.5 F Temperature Source Temporal Pulse Rate (60-100) 93 Pulse Location Monitor Respiratory Rate (12-18) 16 Respiratory rate source Observation Oxygen Delivery Method Room Air Blood Pressure (90/60-120/80) 118/64 Blood Pressure Mean (mm Hg) 82 Source Monitor Position Sitting Blood Pressure Location Left Arm Comment vitals obtained in hbo, just prior to visit. History Since Last Visit- (Skip if this is Patient's initial visit) Have you changed medications since your No No last visit? Any new allergies or adverse reactions No No Had a fall/change in ADL's that may No No increase risk of falls Signs or symptoms of abuse and/or No No neglect since last visit Have you been in the hospital since your No No last visit? Has dressing in place as prescribed Yes Yes Has compression in place as prescribed N/A N/A Has offloadiing in place as prescribed N/A N/A Experienced any changes in pain level or No No management Left Footwear Regular Shoe Regular Shoe Right Footwear Regular Shoe Regular Shoe Pain Scale: 0-10 Numeric Is Patient Pain Free? Yes Yes WC - Nurse 1 - General Ulcer Measurement Start: 02/24/23 15:21 Freq: Status: Active Protocol: Activity Type Activity Date Activity User E-sign Co-sign Detail Recorded Client Recorded Date Recorded By Document 02/24/23 15:21 BMF Desktop 02/24/23 15:34 BMF Document 03/05/23 11:38 PL [id number] 03/05/23 11:42 PL Document 03/10/23 15:12 DL Desktop 03/10/23 15:17 DL 02/24/23 03/05/23 03/10/23 15:21 11:38 15:12 Wound Center Nurse 1 #1- sacral -Combined with other wound No No -Current Size (cm) - Length 5 4.5 3.3 -Current Size (cm) - Width 2 1.5 1.4 -Current Size (cm) - Depth 5 5.0 -Total Square Cm 10 6.75 4.62 -Photo Taken No -Epithelialization Small 1-33% -Tunneling No -Undermining/Tunneling No -Circular Undermining No -Exudate Amt Large Large -Exudate Type Serosanguineous Serosanguineous -Wound Margin Distinct, Distinct, Outline Outline Attached Attached -Granulation Amt Large (67-100%) Large (67-100%) -Granulation Quality Red Red -Slough/Fibrin No No -Necrosis Amt None Present (0 None Present (0 %) %) -Texture (Neda-wound Skin Appearance) Assessed, Assessed, Scarring Scarring -Moisture (Neda-wound Skin Appearance) Assessed Assessed -Color (Neda-wound Skin Appearance) Assessed Assessed -Temperature (Neda-wound Skin No Abnormality No Abnormality Appearance) (Pt Warm) (Pt Warm) -Tenderness on Palpation (Neda-wound No No Skin Appearance) -Ulcer Cleansing Soap and Water Soap and Water -Foul Odor after Cleansing No No -Anesthetic Used 4% Lidocaine Solution WC - Nurse 2 - General Ulcer CM Notes Start: 02/24/23 15:21 Freq: Status: Active Protocol: Activity Type Activity Date Activity User E-sign Co-sign Detail Recorded Client Recorded Date Recorded By Document 02/24/23 15:46 JF Laptop 02/24/23 15:49 JF Document 03/10/23 15:30 JF Laptop 03/10/23 15:33 JF 02/24/23 03/10/23 15:46 15:30 Wound Center Nurse 2 #1- sacral -Time 15:48 15:31 -Correct Patient Yes Yes -Correct Side, Site, Position Yes Yes -Correct Procedure Yes Yes -Procedure Performed Yes Yes -Type of Procedure Debridement Debridement -Clinical Debridement Muscle / Fascia Muscle / Fascia -Tissue Removed Muscle Muscle,Fascia -Post Debridement (cm) - Length 5.0 3.5 -Post Debridement (cm) - Width 1.5 1.5 -Post Debridement (cm) - Depth 4.8 4.6 -Total Square (Post) (cm) 7.50 5.25 -Area of Debridement (cm) - Length 5.0 3.5 -Area of Debridement (cm) - Width 1.5 1.5 -Total Square (Area) (cm) 7.50 5.25 -Tunneling No No -Undermining/Tunneling No No -Circular Undermining No No -Wound/Ulcer Outcome Not Healed Not Healed -Ulcer Cleansing Rinsed/ Rinsed/ Irrigated with Irrigated with Saline Saline -Foul Odor after Cleansing No No -Bioengineered Tissue No No -Bleeding Controlled with Pressure Pressure -Treatment Response Procedure Procedure Tolerated Well Tolerated Well -Offloading No No -Pressure Reduction Wheelchair cushion -Debridement - Muscle / Fascia, 1st Yes Yes 20sq cm Pain Scale: 0-10 Numeric Is Patient Pain Free? Yes Yes - Nurse 3 - General Ulcer D/C NN Start: 02/24/23 15:21 Freq: Status: Active Protocol: Activity Type Activity Date Activity User E-sign Co-sign Detail Recorded Client Recorded Date Recorded By Document 02/24/23 16:16 [facility] Desktop 02/24/23 16:17 [facility] Document 02/28/23 10:18 Laptop 02/28/23 10:23 Document 03/07/23 10:28 Laptop 03/07/23 10:32 JF Document 03/10/23 15:45 DL Desktop 03/10/23 15:46 DL 02/24/23 02/28/23 03/07/23 16:16 10:18 10:28 Wound Care Center Nurse 3 #1- sacral -Ulcer Cleansing Rinsed/ Irrigated with Saline -Foul Odor after Cleansing No -Negative Pressure Wound Therapy Continue -Setting (mmHg) 150 -Negative Pressure is Continuous -NPWT Application Charge NPWT & Debridement (nc ) Treatment Response Procedure Tolerated Well Pain Scale: 0-10 Numeric Is Patient Pain Free? Yes Yes Yes WC - Visit Discharge Discharge Condition Stable Stable Stable Ambulatory Status Wheelchair Wheelchair Wheelchair Transportation Private Auto Private Auto Private Auto Medication Reconcilliation completed & No provided to patient/care provider Clinical Summary of Care Provided No 03/10/23 15:45 Wound Care Center Nurse 3 #1- sacral -Ulcer Cleansing Soap and Water -Foul Odor after Cleansing No -Negative Pressure Wound Therapy Continue -Setting (mmHg) 150 -Negative Pressure is Continuous -NPWT Application Charge NPWT & Debridement (nc ) Treatment Response Procedure Tolerated Well Pain Scale: 0-10 Numeric Is Patient Pain Free? Yes WC - Visit Discharge Discharge Condition Stable Ambulatory Status Wheelchair Transportation Private Auto Medication Reconcilliation completed & provided to patient/care provider Clinical Summary of Care Provided Assessment/Plan Assessment/Plan (1) Sacral decubitus ulcer, stage IV: CODE(S): L89.154 - Pressure ulcer of sacral region, stage 4 (2) Osteomyelitis: CODE(S): M86.9 - Osteomyelitis, unspecified QUALIFIERS: Osteomyelitis type: other chronic Osteomyelitis location: other site Qualified Code(s): M86.68 - Other chronic osteomyelitis, other site (3) Immobility syndrome (paraplegic): CODE(S): M62.3 - Immobility syndrome (paraplegic) (4) Multiple sclerosis: CODE(S): G35 - Multiple sclerosis (5) Long-term current use of rituximab: CODE(S): Z79.620 - watermaster (current) use of immunosuppressive biologic (6) Former smoker: CODE(S): Z87.891 - Personal history of nicotine dependence (7) UTI (urinary tract infection): CODE(S): N39.0 - Urinary tract infection, site not specified PLAN: Plan Continue the VAC at 150 mmHg. Kocuria kristinae in the bone is positive for osteomyelitis. It is significant and should be treated since it didn't show up in the soft tissue culture. She was placed on Augmentin per Infectious Diseases recommendation. She has finished the Augmentin. On 10/30/22, it was 20.1. Encourage nutritional supplementation with protein to help the healing process. Last 2021 she had diagnosis of osteomyelitis. She was placed on IV antibiotics per Infectious Diseases for 6 weeks until January,. This is important because it establishes a timeline for chronic refractory osteomyelitis. She is a candidate for HBO Treatments. We have received insurance approval for the HBO treatments. Usual amount is 40- 60 treatments. She had a CXR on 01/06/23. It showed no evidence of acute cardiopulmonary process. No evidence of congestive heart failure. No evidence pneumothorax. No focal infiltrates, consolidations, or effusions. I looked in her ears with an otoscope at her visit on 01/06/23. She had normal tympanic membranes. No bleeding was seen in the tympanic membranes. No fluid was seen behind the tympanic membranes. She has started the HBO treatments and is tolerating them thus far. She will continue the HBO treatments as improvement has been noted with granulation tissue over the bone. She had a Urinalysis on 02/10/23. It showed Leukocyte Esterase. Urine Culture showed Klebsiella pneumoniae. She was treated with Cipro. Today her symptoms have resolved. Followup 2 weeks.
--- NOTE | 2023-03-11 14:22 | PCM.HBO.PN ---
History of Present Illness Date of Service: 03/11/23 Chief Complaint: Sacral pressure sore, Stage IV. History of Wound: Surgery 12/18/22 - Excision sacral pressure sore, Stage IV, with partial ostectomy for osteomyelitis. Wound care - VAC. Operative Culture - Corynebacterium striatum in the soft tissue and Kocuria kristinae in the bone. Was treated perioperatively with Augmentin and Flagyl for a preop culture positive for Enterococcus faecalis and Anaerobes. Kocuria kristinae in the bone is positive for osteomyelitis. It is significant and should be treated since it didn't show up in the soft tissue culture. She was placed on Augmentin and is finishing them. Pathology - Negative for acute osteomyelitis. Chronic reparative and reactive change. Prealbumin from 10/30/22 was 20.1. Encourage nutritional supplementation with protein to help the healing process. MRI Pelvis from 08/21/22 - 2.8 cm decubitus ulcer at the base of the coccyx without discrete evidence of osteomyelitis. At her last Wound Center visit on 02/10/23, she had urinary symptoms. A Urinalysis was done which did not report any WBC, and no Bacteria reported. The Leukocyte Esterase was 500. She was started on Cipro and has finished them. A Urine Culture showed Klebsiella pneumoniae. It is sensitive to Cipro. Today her urinary symptoms have resolved. Last 2021 she had diagnosis of osteomyelitis. She was placed on IV antibiotics per Infectious Diseases for 6 weeks until January,. This is important because it establishes a timeline for chronic refractory osteomyelitis. Progress of Wound: Today she presents for hyperbaric oxygen therapy session 25 of 30 for treatment of chronic refractory osteomyelitis of her sacrum with stage 4 pressure ulcer. Hyperbaric oxygen therapy was administered as per the facility's protocol.? Hyperbaric oxygen therapy was administered at 2.0 LIONEL in 100% oxygen for 90 minutes without air breaks.? The patient tolerated hyperbaric oxygen therapy well, without complications or complaints. Upon emergence of the hyperbaric chamber, the patient's vital signs remained stable.? She was discharged in good condition. Objective Data Objective Data Vital Signs: Vital Signs Temp Pulse Resp BP O2 Del Method 97.6 F L 83 18 111/61 Room Air 03/11/23 15:50 03/11/23 15:50 03/11/23 15:50 03/11/23 15:50 02/24/23 15:21 Oxygen Delivery Method Room Air Weight: 145 lb 9.6 oz Body Mass Index (BMI) 22.8 Exam Physical Exam Const alert, oriented x3 and no apparent distress HEENT normocephalic HEENT Narrative: Right TM normal. Left TM able to view land ian but fluid is slightly cloudy. She denies pain or any issues with her ear. Resp normal respiratory effort and clear to auscultation bilaterally Effort and Inspection: able to speak in complete sentences Cardio regular rate and regular rhythm Psych mental status grossly normal, thought process normal, cooperative, affect normal and speech normal Nursing Assessment and Debridement Post-Debridement Measurements and Additional Note: Post-Debridement Measurements/Treatment - Nurse 1 - General Ulcer Assessment Start: 02/24/23 15:21 Freq: Status: Active Protocol: BENIGNO Activity Type Activity Date Activity User E-sign Co-sign Detail Recorded Client Recorded Date Recorded By Document 03/10/23 15:12 DL Desktop 03/10/23 15:17 DL 03/10/23 15:12 WC - Today's Visit Information Type of service Follow-up Visit (Physician/STREAMING MEDIA SPECIALIST ) Arrival Mode Wheelchair Transfer Assistance Other Transfer Assist (Other) 2 Patient Identification Verified (Name & Yes ) Patient Requires Transmission-Based No Precautions Height and Weight Body Mass Index (BMI) 22.8 BMI Classification Normal Vital Signs Comment vitals obtained in hbo, just prior to visit. History Since Last Visit- (Skip if this is Patient's initial visit) Have you changed medications since your No last visit? Any new allergies or adverse reactions No Had a fall/change in ADL's that may No increase risk of falls Signs or symptoms of abuse and/or No neglect since last visit Have you been in the hospital since your No last visit? Has dressing in place as prescribed Yes Has compression in place as prescribed N/A Has offloadiing in place as prescribed N/A Experienced any changes in pain level or No management Left Footwear Regular Shoe Right Footwear Regular Shoe Pain Scale: 0-10 Numeric Is Patient Pain Free? Yes - Nurse 1 - General Ulcer Measurement Start: 02/24/23 15:21 Freq: Status: Active Protocol: Activity Type Activity Date Activity User E-sign Co-sign Detail Recorded Client Recorded Date Recorded By Document 03/10/23 15:12 DL Desktop 03/10/23 15:17 DL 03/10/23 15:12 Wound Center Nurse 1 #1- sacral -Combined with other wound No -Current Size (cm) - Length 3.3 -Current Size (cm) - Width 1.4 -Total Square Cm 4.62 -Epithelialization Small 1-33% -Tunneling No -Undermining/Tunneling No -Circular Undermining No -Exudate Amt Large -Exudate Type Serosanguineous -Wound Margin Distinct, Outline Attached -Granulation Amt Large (67-100%) -Granulation Quality Red -Slough/Fibrin No -Necrosis Amt None Present (0 %) -Texture (Neda-wound Skin Appearance) Assessed, Scarring -Moisture (Neda-wound Skin Appearance) Assessed -Color (Neda-wound Skin Appearance) Assessed -Temperature (Neda-wound Skin No Abnormality Appearance) (Pt Warm) -Tenderness on Palpation (Neda-wound No Skin Appearance) -Ulcer Cleansing Soap and Water -Foul Odor after Cleansing No -Anesthetic Used 4% Lidocaine Solution WC - Nurse 2 - General Ulcer CM Notes Start: 02/24/23 15:21 Freq: Status: Active Protocol: Activity Type Activity Date Activity User E-sign Co-sign Detail Recorded Client Recorded Date Recorded By Document 03/10/23 15:30 Laptop 03/10/23 15:33 03/10/23 15:30 Wound Center Nurse 2 -Time 15:31 -Correct Patient Yes -Correct Side, Site, Position Yes -Correct Procedure Yes -Procedure Performed Yes -Type of Procedure Debridement -Clinical Debridement Muscle / Fascia -Tissue Removed Muscle,Fascia -Post Debridement (cm) - Length 3.5 -Post Debridement (cm) - Width 1.5 -Post Debridement (cm) - Depth 4.6 -Total Square (Post) (cm) 5.25 -Area of Debridement (cm) - Length 3.5 -Area of Debridement (cm) - Width 1.5 -Total Square (Area) (cm) 5.25 -Tunneling No -Undermining/Tunneling No -Circular Undermining No -Wound/Ulcer Outcome Not Healed -Ulcer Cleansing Rinsed/ Irrigated with Saline -Foul Odor after Cleansing No -Bioengineered Tissue No -Bleeding Controlled with Pressure -Treatment Response Procedure Tolerated Well -Offloading No -Debridement - Muscle / Fascia, 1st Yes 20sq cm Pain Scale: 0-10 Numeric Is Patient Pain Free? Yes - Nurse 3 - General Ulcer D/C NN Start: 02/24/23 15:21 Freq: Status: Active Protocol: Activity Type Activity Date Activity User E-sign Co-sign Detail Recorded Client Recorded Date Recorded By Document 03/10/23 15:45 DL Desktop 03/10/23 15:46 DL 03/10/23 15:45 Wound Care Center Nurse 3 #1- sacral -Ulcer Cleansing Soap and Water -Foul Odor after Cleansing No -Negative Pressure Wound Therapy Continue -Setting (mmHg) 150 -Negative Pressure is Continuous -NPWT Application Charge NPWT & Debridement (nc ) Treatment Response Procedure Tolerated Well Pain Scale: 0-10 Numeric Is Patient Pain Free? Yes - Visit Discharge Discharge Condition Stable Ambulatory Status Wheelchair Transportation Private Auto Assessment/Plan Assessment/Plan (1) Osteomyelitis: CODE(S): M86.9 - Osteomyelitis, unspecified QUALIFIERS: Osteomyelitis type: other chronic Osteomyelitis location: other site Qualified Code(s): M86.68 - Other chronic osteomyelitis, other site (2) Sacral decubitus ulcer, stage IV: CODE(S): L89.154 - Pressure ulcer of sacral region, stage 4 PLAN: Plan She is tolerating and benefiting from hyperbaric oxygen therapy which will be continued per the patient's medical plan.
[2023-03-11 15:50] VITALS: BP 102/58; BP 111/61; PULSE 68; PULSE 83; RESP 18; TEMP 36.4
--- NOTE | 2023-03-12 11:11 | HBO.PN.PCM_ITS ---
History of Present Illness Date of Service: 03/10/23 Chief Complaint: Sacral pressure sore, Stage IV. History of Wound: Surgery 12/18/22 - Excision sacral pressure sore, Stage IV, with partial ostectomy for osteomyelitis. Wound care - VAC. Operative Culture - Corynebacterium striatum in the soft tissue and Kocuria kristinae in the bone. Was treated perioperatively with Augmentin and Flagyl for a preop culture positive for Enterococcus faecalis and Anaerobes. Kocuria kristinae in the bone is positive for osteomyelitis. It is significant and should be treated since it didn't show up in the soft tissue culture. She was placed on Augmentin and is finishing them. Pathology - Negative for acute osteomyelitis. Chronic reparative and reactive change. Prealbumin from 10/30/22 was 20.1. Encourage nutritional supplementation with protein to help the healing process. MRI Pelvis from 08/21/22 - 2.8 cm decubitus ulcer at the base of the coccyx without discrete evidence of osteomyelitis. At her last Wound Center visit on 02/10/23, she had urinary symptoms. A Urinalysis was done which did not report any WBC, and no Bacteria reported. The Leukocyte Esterase was 500. She was started on Cipro and has finished them. A Urine Culture showed Klebsiella pneumoniae. It is sensitive to Cipro. Today her urinary symptoms have resolved. Last 2021 she had diagnosis of osteomyelitis. She was placed on IV antibiotics per Infectious Diseases for 6 weeks until January,. This is important because it establishes a timeline for chronic refractory osteomyelitis. 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 Hyperbaric oxygen therapy was administered as per the facility's protocol.? Hyperbaric oxygen therapy was administered at 2.0 LIONEL in 100% oxygen for 90 minutes without air breaks.? The patient tolerated hyperbaric oxygen therapy well, without complications or complaints. Upon emergence of the hyperbaric chamber, the patient's vital signs remained stable.? She was discharged in good condition. Objective Data Objective Data Vital Signs: Vital Signs Temp Pulse Resp BP O2 Del Method 97.6 F L 83 18 111/61 Room Air 03/11/23 15:50 03/11/23 15:50 03/11/23 15:50 03/11/23 15:50 02/24/23 15:21 Oxygen Delivery Method Room Air Weight: 145 lb 9.6 oz Body Mass Index (BMI) 22.8 Exam Physical Exam Const alert, oriented x3 and no apparent distress HEENT normocephalic and TM's normal bilaterally Resp normal respiratory effort Effort and Inspection: able to speak in complete sentences Cardio regular rate Psych mental status grossly normal, thought process normal, cooperative, affect normal and speech normal Nursing Assessment and Debridement Post-Debridement Measurements and Additional Note: Post-Debridement Measurements/Treatment - Nurse 1 - General Ulcer Assessment Start: 02/24/23 15:21 Freq: Status: Active Protocol: BENIGNO Activity Type Activity Date Activity User E-sign Co-sign Detail Recorded Client Recorded Date Recorded By Document 03/10/23 15:12 DL Desktop 03/10/23 15:17 DL 03/10/23 15:12 WC - Today's Visit Information Type of service Follow-up Visit (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 History Since Last Visit- (Skip if this is Patient's initial visit) Have you changed medications since your No last visit? Any new allergies or adverse reactions No Had a fall/change in ADL's that may No increase risk of falls Signs or symptoms of abuse and/or No neglect since last visit Have you been in the hospital since your No last visit? Has dressing in place as prescribed Yes Has compression in place as prescribed N/A Has offloadiing in place as prescribed N/A Experienced any changes in pain level or No management Left Footwear Regular Shoe Right Footwear Regular Shoe Pain Scale: 0-10 Numeric Is Patient Pain Free? Yes - Nurse 1 - General Ulcer Measurement Start: 02/24/23 15:21 Freq: Status: Active Protocol: Activity Type Activity Date Activity User E-sign Co-sign Detail Recorded Client Recorded Date Recorded By Document 03/10/23 15:12 DL Desktop 03/10/23 15:17 DL 03/10/23 15:12 Wound Center Nurse 1 #1- sacral -Combined with other wound No -Current Size (cm) - Length 3.3 -Current Size (cm) - Width 1.4 -Total Square Cm 4.62 -Epithelialization Small 1-33% -Tunneling No -Undermining/Tunneling No -Circular Undermining No -Exudate Amt Large -Exudate Type Serosanguineous -Wound Margin Distinct, Outline Attached -Granulation Amt Large (67-100%) -Granulation Quality Red -Slough/Fibrin No -Necrosis Amt None Present (0 %) -Texture (Neda-wound Skin Appearance) Assessed, Scarring -Moisture (Neda-wound Skin Appearance) Assessed -Color (Neda-wound Skin Appearance) Assessed -Temperature (Neda-wound Skin No Abnormality Appearance) (Pt Warm) -Tenderness on Palpation (Neda-wound No Skin Appearance) -Ulcer Cleansing Soap and Water -Foul Odor after Cleansing No -Anesthetic Used 4% Lidocaine Solution WC - Nurse 2 - General Ulcer CM Notes Start: 02/24/23 15:21 Freq: Status: Active Protocol: Activity Type Activity Date Activity User E-sign Co-sign Detail Recorded Client Recorded Date Recorded By Document 03/10/23 15:30 Laptop 03/10/23 15:33 03/10/23 15:30 Wound Center Nurse 2 -Time 15:31 -Correct Patient Yes -Correct Side, Site, Position Yes -Correct Procedure Yes -Procedure Performed Yes -Type of Procedure Debridement -Clinical Debridement Muscle / Fascia -Tissue Removed Muscle,Fascia -Post Debridement (cm) - Length 3.5 -Post Debridement (cm) - Width 1.5 -Post Debridement (cm) - Depth 4.6 -Total Square (Post) (cm) 5.25 -Area of Debridement (cm) - Length 3.5 -Area of Debridement (cm) - Width 1.5 -Total Square (Area) (cm) 5.25 -Tunneling No -Undermining/Tunneling No -Circular Undermining No -Wound/Ulcer Outcome Not Healed -Ulcer Cleansing Rinsed/ Irrigated with Saline -Foul Odor after Cleansing No -Bioengineered Tissue No -Bleeding Controlled with Pressure -Treatment Response Procedure Tolerated Well -Offloading No -Debridement - Muscle / Fascia, 1st Yes 20sq cm Pain Scale: 0-10 Numeric Is Patient Pain Free? Yes DEBBI - Nurse 3 - General Ulcer D/C NN Start: 02/24/23 15:21 Freq: Status: Active Protocol: Activity Type Activity Date Activity User E-sign Co-sign Detail Recorded Client Recorded Date Recorded By Document 03/10/23 15:45 DL Desktop 03/10/23 15:46 DL 03/10/23 15:45 Wound Care Center Nurse 3 #1- sacral -Ulcer Cleansing Soap and Water -Foul Odor after Cleansing No -Negative Pressure Wound Therapy Continue -Setting (mmHg) 150 -Negative Pressure is Continuous -NPWT Application Charge NPWT & Debridement (nc ) Treatment Response Procedure Tolerated Well Pain Scale: 0-10 Numeric Is Patient Pain Free? Yes WC - Visit Discharge Discharge Condition Stable Ambulatory Status Wheelchair Transportation Private Auto Charges/Coding Wound Center CF Procedures HBO Supervision: [id number] Hyperbaric Oxygen; supervision Assessment/Plan Assessment/Plan (1) Osteomyelitis: CODE(S): M86.9 - Osteomyelitis, unspecified QUALIFIERS: Osteomyelitis type: other chronic Osteomyelitis location: other site Qualified Code(s): M86.68 - Other chronic osteomyelitis, other site (2) Sacral decubitus ulcer, stage IV: CODE(S): L89.154 - Pressure ulcer of sacral region, stage 4 PLAN: Plan She is tolerating and benefiting from hyperbaric oxygen therapy which will be continued per the patient's medical plan.
--- NOTE | 2023-03-12 12:02 | HBO.PN.PCM_ITS ---
History of Present Illness Date of Service: 03/12/23 Chief Complaint: Sacral pressure sore, Stage IV. History of Wound: Surgery 12/18/22 - Excision sacral pressure sore, Stage IV, with partial ostectomy for osteomyelitis. Wound care - VAC. Operative Culture - Corynebacterium striatum in the soft tissue and Kocuria kristinae in the bone. Was treated perioperatively with Augmentin and Flagyl for a preop culture positive for Enterococcus faecalis and Anaerobes. Kocuria kristinae in the bone is positive for osteomyelitis. It is significant and should be treated since it didn't show up in the soft tissue culture. She was placed on Augmentin and is finishing them. Pathology - Negative for acute osteomyelitis. Chronic reparative and reactive change. Prealbumin from 10/30/22 was 20.1. Encourage nutritional supplementation with protein to help the healing process. MRI Pelvis from 08/21/22 - 2.8 cm decubitus ulcer at the base of the coccyx without discrete evidence of osteomyelitis. At her last Wound Center visit on 02/10/23, she had urinary symptoms. A Urinalysis was done which did not report any WBC, and no Bacteria reported. The Leukocyte Esterase was 500. She was started on Cipro and has finished them. A Urine Culture showed Klebsiella pneumoniae. It is sensitive to Cipro. Today her urinary symptoms have resolved. Last 2021 she had diagnosis of osteomyelitis. She was placed on IV antibiotics per Infectious Diseases for 6 weeks until January,. This is important because it establishes a timeline for chronic refractory osteomyelitis. 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 Hyperbaric oxygen therapy was administered as per the facility's protocol.? Hyperbaric oxygen therapy was administered at 2.0 LIONEL in 100% oxygen for 90 minutes without air breaks.? The patient tolerated hyperbaric oxygen therapy well, without complications or complaints. Upon emergence of the hyperbaric chamber, the patient's vital signs remained stable.? She was discharged in good condition. Objective Data Objective Data Vital Signs: Vital Signs Temp Pulse Resp BP O2 Del Method 97.6 F L 83 18 111/61 Room Air 03/11/23 15:50 03/11/23 15:50 03/11/23 15:50 03/11/23 15:50 02/24/23 15:21 Oxygen Delivery Method Room Air Weight: 145 lb 9.6 oz Body Mass Index (BMI) 22.8 Exam Physical Exam Const alert, oriented x3 and no apparent distress HEENT normocephalic and TM's normal bilaterally Eyes PERRL Resp normal respiratory effort and clear to auscultation bilaterally Effort and Inspection: able to speak in complete sentences Cardio regular rate and regular rhythm Psych mental status grossly normal, thought process normal, cooperative, affect normal and speech normal Nursing Assessment and Debridement Post-Debridement Measurements and Additional Note: Post-Debridement Measurements/Treatment - Nurse 1 - General Ulcer Assessment Start: 02/24/23 15:21 Freq: Status: Active Protocol: BENIGNO Activity Type Activity Date Activity User E-sign Co-sign Detail Recorded Client Recorded Date Recorded By Document 03/10/23 15:12 DL Desktop 03/10/23 15:17 DL 03/10/23 15:12 WC - Today's Visit Information Type of service Follow-up Visit (Physician/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 History Since Last Visit- (Skip if this is Patient's initial visit) Have you changed medications since your No last visit? Any new allergies or adverse reactions No Had a fall/change in ADL's that may No increase risk of falls Signs or symptoms of abuse and/or No neglect since last visit Have you been in the hospital since your No last visit? Has dressing in place as prescribed Yes Has compression in place as prescribed N/A Has offloadiing in place as prescribed N/A Experienced any changes in pain level or No management Left Footwear Regular Shoe Right Footwear Regular Shoe Pain Scale: 0-10 Numeric Is Patient Pain Free? Yes - Nurse 1 - General Ulcer Measurement Start: 02/24/23 15:21 Freq: Status: Active Protocol: Activity Type Activity Date Activity User E-sign Co-sign Detail Recorded Client Recorded Date Recorded By Document 03/10/23 15:12 DL Spectral [employer] 03/10/23 15:17 DL 03/10/23 15:12 Wound Center Nurse 1 #1- sacral -Combined with other wound No -Current Size (cm) - Length 3.3 -Current Size (cm) - Width 1.4 -Total Square Cm 4.62 -Epithelialization Small 1-33% -Tunneling No -Undermining/Tunneling No -Circular Undermining No -Exudate Amt Large -Exudate Type Serosanguineous -Wound Margin Distinct, Outline Attached -Granulation Amt Large (67-100%) -Granulation Quality Red -Slough/Fibrin No -Necrosis Amt None Present (0 %) -Texture (Neda-wound Skin Appearance) Assessed, Scarring -Moisture (Neda-wound Skin Appearance) Assessed -Color (Neda-wound Skin Appearance) Assessed -Temperature (Neda-wound Skin No Abnormality Appearance) (Pt Warm) -Tenderness on Palpation (Neda-wound No Skin Appearance) -Ulcer Cleansing Soap and Water -Foul Odor after Cleansing No -Anesthetic Used 4% Lidocaine Solution WC - Nurse 2 - General Ulcer CM Notes Start: 02/24/23 15:21 Freq: Status: Active Protocol: Activity Type Activity Date Activity User E-sign Co-sign Detail Recorded Client Recorded Date Recorded By Document 03/10/23 15:30 Laptop 03/10/23 15:33 03/10/23 15:30 Wound Center Nurse 2 -Time 15:31 -Correct Patient Yes -Correct Side, Site, Position Yes -Correct Procedure Yes -Procedure Performed Yes -Type of Procedure Debridement -Clinical Debridement Muscle / Fascia -Tissue Removed Muscle,Fascia -Post Debridement (cm) - Length 3.5 -Post Debridement (cm) - Width 1.5 -Post Debridement (cm) - Depth 4.6 -Total Square (Post) (cm) 5.25 -Area of Debridement (cm) - Length 3.5 -Area of Debridement (cm) - Width 1.5 -Total Square (Area) (cm) 5.25 -Tunneling No -Undermining/Tunneling No -Circular Undermining No -Wound/Ulcer Outcome Not Healed -Ulcer Cleansing Rinsed/ Irrigated with Saline -Foul Odor after Cleansing No -Bioengineered Tissue No -Bleeding Controlled with Pressure -Treatment Response Procedure Tolerated Well -Offloading No -Debridement - Muscle / Fascia, 1st Yes 20sq cm Pain Scale: 0-10 Numeric Is Patient Pain Free? Yes WC - Nurse 3 - General Ulcer D/C NN Start: 02/24/23 15:21 Freq: Status: Active Protocol: Activity Type Activity Date Activity User E-sign Co-sign Detail Recorded Client Recorded Date Recorded By Document 03/10/23 15:45 DL Desktop 03/10/23 15:46 DL 03/10/23 15:45 Wound Care Center Nurse 3 #1- sacral -Ulcer Cleansing Soap and Water -Foul Odor after Cleansing No -Negative Pressure Wound Therapy Continue -Setting (mmHg) 150 -Negative Pressure is Continuous -NPWT Application Charge NPWT & Debridement (nc ) Treatment Response Procedure Tolerated Well Pain Scale: 0-10 Numeric Is Patient Pain Free? Yes WC - Visit Discharge Discharge Condition Stable Ambulatory Status Wheelchair Transportation Private Auto Charges/Coding Wound Center CF Procedures HBO Supervision: [id number] Hyperbaric Oxygen; supervision Assessment/Plan Assessment/Plan (1) Osteomyelitis: CODE(S): M86.9 - Osteomyelitis, unspecified QUALIFIERS: Osteomyelitis type: other chronic Osteomyelitis location: other site Qualified Code(s): M86.68 - Other chronic osteomyelitis, other site (2) Sacral decubitus ulcer, stage IV: CODE(S): L89.154 - Pressure ulcer of sacral region, stage 4 PLAN: Plan She is tolerating and benefiting from hyperbaric oxygen therapy which will be continued per the patient's medical plan.
[2023-03-12 13:36] VITALS: BP 113/72; BP 115/68; PULSE 62; PULSE 79; RESP 18; TEMP 36.4
--- NOTE | 2023-03-13 14:42 | PCM.HBO.PN ---
History of Present Illness Date of Service: 03/13/23 Chief Complaint: Sacral pressure sore, Stage IV. History of Wound: Surgery 12/18/22 - Excision sacral pressure sore, Stage IV, with partial ostectomy for osteomyelitis. Wound care - VAC. Operative Culture - Corynebacterium striatum in the soft tissue and Kocuria kristinae in the bone. Was treated perioperatively with Augmentin and Flagyl for a preop culture positive for Enterococcus faecalis and Anaerobes. Kocuria kristinae in the bone is positive for osteomyelitis. It is significant and should be treated since it didn't show up in the soft tissue culture. She was placed on Augmentin and has finished them. Pathology - Negative for acute osteomyelitis. Chronic reparative and reactive change. Prealbumin from 10/30/22 was 20.1. Encourage nutritional supplementation with protein to help the healing process. MRI Pelvis from 08/21/22 - 2.8 cm decubitus ulcer at the base of the coccyx without discrete evidence of osteomyelitis. At her Wound Center visit on 02/10/23, she had urinary symptoms. A Urinalysis was done which did not report any WBC, and no Bacteria reported. The Leukocyte Esterase was 500. She was started on Cipro and has finished them. A Urine Culture showed Klebsiella pneumoniae. It is sensitive to Cipro. Today her urinary symptoms have resolved. Last 2021 she had diagnosis of osteomyelitis. She was placed on IV antibiotics per Infectious Diseases for 6 weeks until January,. This is important because it establishes a timeline for chronic refractory osteomyelitis. 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 Hyperbaric oxygen therapy was administered as per the facility's protocol.? Hyperbaric oxygen therapy was administered at 2.0 LIONEL in 100% oxygen for 90 minutes without air breaks.? The patient tolerated hyperbaric oxygen therapy well, without complications or complaints. Upon emergence of the hyperbaric chamber, the patient's vital signs remained stable.? She was discharged in good condition. Objective Data Objective Data Vital Signs: Vital Signs Temp Pulse Resp BP O2 Del Method 97.6 F L 79 18 115/68 Room Air 03/12/23 13:36 03/12/23 13:36 03/12/23 13:36 03/12/23 13:36 02/24/23 15:21 Oxygen Delivery Method Room Air Weight: 145 lb 9.6 oz Body Mass Index (BMI) 22.8 Exam Physical Exam Const alert, oriented x3 and no apparent distress HEENT normocephalic and TM's normal bilaterally Eyes PERRL Resp normal respiratory effort and clear to auscultation bilaterally Effort and Inspection: able to speak in complete sentences Cardio regular rate and regular rhythm Psych mental status grossly normal, thought process normal, cooperative, affect normal and speech normal Nursing Assessment and Debridement Post-Debridement Measurements and Additional Note: Post-Debridement Measurements/Treatment - Nurse 1 - General Ulcer Assessment Start: 02/24/23 15:21 Freq: Status: Active Protocol: BENIGNO Activity Type Activity Date Activity User E-sign Co-sign Detail Recorded Client Recorded Date Recorded By Document 03/10/23 15:12 DL Desktop 03/10/23 15:17 DL 03/10/23 15:12 WC - Today's Visit Information Type of service 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 History Since Last Visit- (Skip if this is Patient's initial visit) Have you changed medications since your No last visit? Any new allergies or adverse reactions No Had a fall/change in ADL's that may No increase risk of falls Signs or symptoms of abuse and/or No neglect since last visit Have you been in the hospital since your No last visit? Has dressing in place as prescribed Yes Has compression in place as prescribed N/A Has offloadiing in place as prescribed N/A Experienced any changes in pain level or No management Left Footwear Regular Shoe Right Footwear Regular Shoe Pain Scale: 0-10 Numeric Is Patient Pain Free? Yes - Nurse 1 - General Ulcer Measurement Start: 02/24/23 15:21 Freq: Status: Active Protocol: Activity Type Activity Date Activity User E-sign Co-sign Detail Recorded Client Recorded Date Recorded By Document 03/10/23 15:12 DL Desktop 03/10/23 15:17 DL 03/10/23 15:12 Wound Center Nurse 1 #1- sacral -Combined with other wound No -Current Size (cm) - Length 3.3 -Current Size (cm) - Width 1.4 -Total Square Cm 4.62 -Epithelialization Small 1-33% -Tunneling No -Undermining/Tunneling No -Circular Undermining No -Exudate Amt Large -Exudate Type Serosanguineous -Wound Margin Distinct, Outline Attached -Granulation Amt Large (67-100%) -Granulation Quality Red -Slough/Fibrin No -Necrosis Amt None Present (0 %) -Texture (Neda-wound Skin Appearance) Assessed, Scarring -Moisture (Neda-wound Skin Appearance) Assessed -Color (Neda-wound Skin Appearance) Assessed -Temperature (Neda-wound Skin No Abnormality Appearance) (Pt Warm) -Tenderness on Palpation (Neda-wound No Skin Appearance) -Ulcer Cleansing Soap and Water -Foul Odor after Cleansing No -Anesthetic Used 4% Lidocaine Solution WC - Nurse 2 - General Ulcer CM Notes Start: 02/24/23 15:21 Freq: Status: Active Protocol: Activity Type Activity Date Activity User E-sign Co-sign Detail Recorded Client Recorded Date Recorded By Document 03/10/23 15:30 Laptop 03/10/23 15:33 03/10/23 15:30 Wound Center Nurse 2 -Time 15:31 -Correct Patient Yes -Correct Side, Site, Position Yes -Correct Procedure Yes -Procedure Performed Yes -Type of Procedure Debridement -Clinical Debridement Muscle / Fascia -Tissue Removed Muscle,Fascia -Post Debridement (cm) - Length 3.5 -Post Debridement (cm) - Width 1.5 -Post Debridement (cm) - Depth 4.6 -Total Square (Post) (cm) 5.25 -Area of Debridement (cm) - Length 3.5 -Area of Debridement (cm) - Width 1.5 -Total Square (Area) (cm) 5.25 -Tunneling No -Undermining/Tunneling No -Circular Undermining No -Wound/Ulcer Outcome Not Healed -Ulcer Cleansing Rinsed/ Irrigated with Saline -Foul Odor after Cleansing No -Bioengineered Tissue No -Bleeding Controlled with Pressure -Treatment Response Procedure Tolerated Well -Offloading No -Debridement - Muscle / Fascia, 1st Yes 20sq cm Pain Scale: 0-10 Numeric Is Patient Pain Free? Yes WC - Nurse 3 - General Ulcer D/C NN Start: 02/24/23 15:21 Freq: Status: Active Protocol: Activity Type Activity Date Activity User E-sign Co-sign Detail Recorded Client Recorded Date Recorded By Document 03/10/23 15:45 DL Desktop 03/10/23 15:46 DL 03/10/23 15:45 Wound Care Center Nurse 3 #1- sacral -Ulcer Cleansing Soap and Water -Foul Odor after Cleansing No -Negative Pressure Wound Therapy Continue -Setting (mmHg) 150 -Negative Pressure is Continuous -NPWT Application Charge NPWT & Debridement (nc ) Treatment Response Procedure Tolerated Well Pain Scale: 0-10 Numeric Is Patient Pain Free? Yes WC - Visit Discharge Discharge Condition Stable Ambulatory Status Wheelchair Transportation Private Auto Charges/Coding Wound Center CF Procedures HBO Supervision: [id number] Hyperbaric Oxygen; supervision Assessment/Plan Assessment/Plan (1) Osteomyelitis: CODE(S): M86.9 - Osteomyelitis, unspecified QUALIFIERS: Osteomyelitis type: other chronic Osteomyelitis location: other site Qualified Code(s): M86.68 - Other chronic osteomyelitis, other site (2) Sacral decubitus ulcer, stage IV: CODE(S): L89.154 - Pressure ulcer of sacral region, stage 4 PLAN: Plan She is tolerating and benefiting from hyperbaric oxygen therapy which will be continued per the patient's medical plan.
[2023-03-13 15:12] VITALS: BP 110/76; BP 126/59; PULSE 60; PULSE 77; RESP 18; TEMP 35.9
[2023-03-14 10:32] VITALS: BP 106/72; BP 118/65; PULSE 71; PULSE 84; RESP 18
--- NOTE | 2023-03-14 15:33 | HBO.PN.PCM_ITS ---
History of Present Illness Date of Service: 03/14/23 Chief Complaint: Sacral pressure sore, Stage IV. History of Wound: Surgery 12/18/22 - Excision sacral pressure sore, Stage IV, with partial ostectomy for osteomyelitis. Wound care - VAC. Operative Culture - Corynebacterium striatum in the soft tissue and Kocuria kristinae in the bone. Was treated perioperatively with Augmentin and Flagyl for a preop culture positive for Enterococcus faecalis and Anaerobes. Kocuria kristinae in the bone is positive for osteomyelitis. It is significant and should be treated since it didn't show up in the soft tissue culture. She was placed on Augmentin and has finished them. Pathology - Negative for acute osteomyelitis. Chronic reparative and reactive change. Prealbumin from 10/30/22 was 20.1. Encourage nutritional supplementation with protein to help the healing process. MRI Pelvis from 08/21/22 - 2.8 cm decubitus ulcer at the base of the coccyx without discrete evidence of osteomyelitis. At her Wound Center visit on 02/10/23, she had urinary symptoms. A Urinalysis was done which did not report any WBC, and no Bacteria reported. The Leukocyte Esterase was 500. She was started on Cipro and has finished them. A Urine Culture showed Klebsiella pneumoniae. It is sensitive to Cipro. Today her urinary symptoms have resolved. Last 2021 she had diagnosis of osteomyelitis. She was placed on IV antibiotics per Infectious Diseases for 6 weeks until January,. This is important because it establishes a timeline for chronic refractory osteomyelitis. 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 Hyperbaric oxygen therapy was administered as per the facility's protocol.? Hyperbaric oxygen therapy was administered at 2.0 LIONEL in 100% oxygen for 90 minutes without air breaks.? The patient tolerated hyperbaric oxygen therapy well, without complications or complaints. Upon emergence of the hyperbaric ch nelly, the patient's vital signs remained stable.? She was discharged in good condition. Objective Data Objective Data Vital Signs: Vital Signs Temp Pulse Resp BP O2 Del Method 96.7 F L 84 18 106/72 Room Air 03/13/23 15:12 03/14/23 10:32 03/14/23 10:32 03/14/23 10:32 02/24/23 15:21 Oxygen Delivery Method Room Air Weight: 66.043 kg Body Mass Index (BMI) 22.8 Exam Physical Exam Const alert, oriented x3 and no apparent distress Psych mental status grossly normal, thought process normal, cooperative, affect normal and speech normal Assessment/Plan Assessment/Plan (1) Osteomyelitis: CODE(S): M86.9 - Osteomyelitis, unspecified QUALIFIERS: Osteomyelitis type: other chronic Osteomyelitis location: other site Qualified Code(s): M86.68 - Other chronic osteomyelitis, other site (2) Sacral decubitus ulcer, stage IV: CODE(S): L89.154 - Pressure ulcer of sacral region, stage 4 PLAN: Plan She is tolerating and benefiting from hyperbaric oxygen therapy which will be continued per the patient's medical plan.
--- NOTE | 2023-03-17 15:25 | HBO.PN.PCM_ITS ---
History of Present Illness Date of Service: 03/17/23 Chief Complaint: Sacral pressure sore, Stage IV. History of Wound: Surgery 12/18/22 - Excision sacral pressure sore, Stage IV, with partial ostectomy for osteomyelitis. Wound care - VAC. Operative Culture - Corynebacterium striatum in the soft tissue and Kocuria kristinae in the bone. Was treated perioperatively with Augmentin and Flagyl for a preop culture positive for Enterococcus faecalis and Anaerobes. Kocuria kristinae in the bone is positive for osteomyelitis. It is significant and should be treated since it didn't show up in the soft tissue culture. She was placed on Augmentin and has finished them. Pathology - Negative for acute osteomyelitis. Chronic reparative and reactive change. Prealbumin from 10/30/22 was 20.1. Encourage nutritional supplementation with protein to help the healing process. MRI Pelvis from 08/21/22 - 2.8 cm decubitus ulcer at the base of the coccyx without discrete evidence of osteomyelitis. At her Wound Center visit on 02/10/23, she had urinary symptoms. A Urinalysis was done which did not report any WBC, and no Bacteria reported. The Leukocyte Esterase was 500. She was started on Cipro and has finished them. A Urine Culture showed Klebsiella pneumoniae. It is sensitive to Cipro. Today her urinary symptoms have resolved. Last 2021 she had diagnosis of osteomyelitis. She was placed on IV antibiotics per Infectious Diseases for 6 weeks until January,. This is important because it establishes a timeline for chronic refractory osteomyelitis. 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 Hyperbaric oxygen therapy was administered as per the facility's protocol.? Hy perbaric oxygen therapy was administered at 2.0 LIONEL in 100% oxygen for 90 minutes without air breaks.? The patient tolerated hyperbaric oxygen therapy well, without complications or complaints. Upon emergence of the hyperbaric chamber, the patient's vital signs remained stable.? She was discharged in good condition. Objective Data Objective Data Vital Signs: Vital Signs Temp Pulse Resp BP O2 Del Method 96.7 F L 84 18 106/72 Room Air 03/13/23 15:12 03/14/23 10:32 03/14/23 10:32 03/14/23 10:32 02/24/23 15:21 Oxygen Delivery Method Room Air Weight: 145 lb 9.6 oz Body Mass Index (BMI) 22.8 Exam Physical Exam Const alert, oriented x3 and no apparent distress HEENT EAC's normal and TM's normal bilaterally Chest inspection of chest normal Resp normal respiratory effort Auscultation: clear to auscultation bilaterally Cardio regular rate and regular rhythm Psych mental status grossly normal, thought process normal, cooperative, affect normal and speech normal Assessment/Plan Assessment/Plan (1) Osteomyelitis: CODE(S): M86.9 - Osteomyelitis, unspecified QUALIFIERS: Osteomyelitis type: other chronic Osteomyelitis location: other site Qualified Code(s): M86.68 - Other chronic osteomyelitis, other site (2) Sacral decubitus ulcer, stage IV: CODE(S): L89.154 - Pressure ulcer of sacral region, stage 4 PLAN: Plan She is tolerating and benefiting from hyperbaric oxygen therapy which will be continued per the patient's medical plan.
[2023-03-17 15:34] VITALS: BP 118/75; BP 130/54; PULSE 60; PULSE 83; RESP 18
--- NOTE | 2023-03-18 12:33 | PCM.HBO.PN ---
History of Present Illness Date of Service: 03/18/23 Chief Complaint: Sacral pressure sore, Stage IV. History of Wound: Surgery 12/18/22 - Excision sacral pressure sore, Stage IV, with partial ostectomy for osteomyelitis. Wound care - VAC. Operative Culture - Corynebacterium striatum in the soft tissue and Kocuria kristinae in the bone. Was treated perioperatively with Augmentin and Flagyl for a preop culture positive for Enterococcus faecalis and Anaerobes. Kocuria kristinae in the bone is positive for osteomyelitis. It is significant and should be treated since it didn't show up in the soft tissue culture. She was placed on Augmentin and has finished them. Pathology - Negative for acute osteomyelitis. Chronic reparative and reactive change. Prealbumin from 10/30/22 was 20.1. Encourage nutritional supplementation with protein to help the healing process. MRI Pelvis from 08/21/22 - 2.8 cm decubitus ulcer at the base of the coccyx without discrete evidence of osteomyelitis. At her Wound Center visit on 02/10/23, she had urinary symptoms. A Urinalysis was done which did not report any WBC, and no Bacteria reported. The Leukocyte Esterase was 500. She was started on Cipro and has finished them. A Urine Culture showed Klebsiella pneumoniae. It is sensitive to Cipro. Today her urinary symptoms have resolved. Last 2021 she had diagnosis of osteomyelitis. She was placed on IV antibiotics per Infectious Diseases for 6 weeks until January,. This is important because it establishes a timeline for chronic refractory osteomyelitis. 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 Hyperbaric oxygen therapy was administered as per the facility's protocol.? Hyperbaric oxygen therapy was administered at 2.0 LIONEL in 100% oxygen for 90 minutes without air breaks.? The patient tolerated hyperbaric oxygen therapy well, without complications or complaints. Upon emergence of the hyperbaric chamber, the patient's vital signs remained stable.? She was discharged in good condition. Objective Data Objective Data Vital Signs: Vital Signs Temp Pulse Resp BP O2 Del Method 96.7 F L 83 18 130/54 H Room Air 03/13/23 15:12 03/17/23 15:34 03/17/23 15:34 03/17/23 15:34 02/24/23 15:21 Oxygen Delivery Method Room Air Weight: 145 lb 9.6 oz Body Mass Index (BMI) 22.8 Exam Physical Exam Const alert, oriented x3 and no apparent distress HEENT EAC's normal and TM's normal bilaterally Chest inspection of chest normal Resp normal respiratory effort Auscultation: clear to auscultation bilaterally Cardio regular rate and regular rhythm Psych mental status grossly normal, thought process normal, cooperative, affect normal and speech normal Assessment/Plan Assessment/Plan (1) Osteomyelitis: CODE(S): M86.9 - Osteomyelitis, unspecified QUALIFIERS: Osteomyelitis type: other chronic Osteomyelitis location: other site Qualified Code(s): M86.68 - Other chronic osteomyelitis, other site (2) Sacral decubitus ulcer, stage IV: CODE(S): L89.154 - Pressure ulcer of sacral region, stage 4 PLAN: Plan She is tolerating and benefiting from hyperbaric oxygen therapy which will be continued per the patient's medical plan.
[2023-03-18 14:55] VITALS: BP 114/64; BP 87/56; PULSE 72; PULSE 95; RESP 18
[2023-03-19 11:21] VITALS: BP 112/75; BP 114/71; PULSE 68; PULSE 86; RESP 18; TEMP 36.2
--- NOTE | 2023-03-19 13:40 | PCM.HBO.PN ---
History of Present Illness Date of Service: 03/19/23 Chief Complaint: Sacral pressure sore, Stage IV. History of Wound: Surgery 12/18/22 - Excision sacral pressure sore, Stage IV, with partial ostectomy for osteomyelitis. Wound care - VAC. Operative Culture - Corynebacterium striatum in the soft tissue and Kocuria kristinae in the bone. Was treated perioperatively with Augmentin and Flagyl for a preop culture positive for Enterococcus faecalis and Anaerobes. Kocuria kristinae in the bone is positive for osteomyelitis. It is significant and should be treated since it didn't show up in the soft tissue culture. She was placed on Augmentin and has finished them. Pathology - Negative for acute osteomyelitis. Chronic reparative and reactive change. Prealbumin from 10/30/22 was 20.1. Encourage nutritional supplementation with protein to help the healing process. MRI Pelvis from 08/21/22 - 2.8 cm decubitus ulcer at the base of the coccyx without discrete evidence of osteomyelitis. At her Wound Center visit on 02/10/23, she had urinary symptoms. A Urinalysis was done which did not report any WBC, and no Bacteria reported. The Leukocyte Esterase was 500. She was started on Cipro and has finished them. A Urine Culture showed Klebsiella pneumoniae. It is sensitive to Cipro. Today her urinary symptoms have resolved. Last 2021 she had diagnosis of osteomyelitis. She was placed on IV antibiotics per Infectious Diseases for 6 weeks until January,. This is important because it establishes a timeline for chronic refractory osteomyelitis. 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 Hyperbaric oxygen therapy was administered as per the facility's protocol.? Hyperbaric oxygen therapy was administered at 2.0 LIONEL in 100% oxygen for 90 minutes without air breaks.? The patient tolerated hyperbaric oxygen therapy well, without complications or complaints. Upon emergence of the hyperbaric chamber, the patient's vital signs remained stable.? She was discharged in good condition. Objective Data Objective Data Vital Signs: Vital Signs Temp Pulse Resp BP O2 Del Method 97.2 F L 86 18 112/75 Room Air 03/19/23 11:21 03/19/23 11:21 03/19/23 11:21 03/19/23 11:21 02/24/23 15:21 Oxygen Delivery Method Room Air Weight: 145 lb 9.6 oz Body Mass Index (BMI) 22.8 Exam Physical Exam Const alert, oriented x3 and no apparent distress HEENT normocephalic and TM's normal bilaterally Eyes PERRL Resp normal respiratory effort and clear to auscultation bilaterally Effort and Inspection: able to speak in complete sentences Cardio regular rate and regular rhythm Psych mental status grossly normal, thought process normal, cooperative, affect normal and speech normal Charges/Coding Wound Center CF Procedures HBO Supervision: [id number] Hyperbaric Oxygen; supervision Assessment/Plan Assessment/Plan (1) Osteomyelitis: CODE(S): M86.9 - Osteomyelitis, unspecified QUALIFIERS: Osteomyelitis type: other chronic Osteomyelitis location: other site Qualified Code(s): M86.68 - Other chronic osteomyelitis, other site (2) Sacral decubitus ulcer, stage IV: CODE(S): L89.154 - Pressure ulcer of sacral region, stage 4 PLAN: Plan She is tolerating and benefiting from hyperbaric oxygen therapy which will be continued per the patient's medical plan.
[2023-03-21 08:56] VITALS: BP 114/76; BP 121/75; PULSE 68; PULSE 95; RESP 16; TEMP 36.3; TEMP 36.6
--- NOTE | 2023-03-21 14:03 | PCM.HBO.PN ---
History of Present Illness Date of Service: 03/21/23 Chief Complaint: Sacral pressure sore, Stage IV. History of Wound: Surgery 12/18/22 - Excision sacral pressure sore, Stage IV, with partial ostectomy for osteomyelitis. Wound care - VAC. Operative Culture - Corynebacterium striatum in the soft tissue and Kocuria kristinae in the bone. Was treated perioperatively with Augmentin and Flagyl for a preop culture positive for Enterococcus faecalis and Anaerobes. Kocuria kristinae in the bone is positive for osteomyelitis. It is significant and should be treated since it didn't show up in the soft tissue culture. She was placed on Augmentin and has finished them. Pathology - Negative for acute osteomyelitis. Chronic reparative and reactive change. Prealbumin from 10/30/22 was 20.1. Encourage nutritional supplementation with protein to help the healing process. MRI Pelvis from 08/21/22 - 2.8 cm decubitus ulcer at the base of the coccyx without discrete evidence of osteomyelitis. At her Wound Center visit on 02/10/23, she had urinary symptoms. A Urinalysis was done which did not report any WBC, and no Bacteria reported. The Leukocyte Esterase was 500. She was started on Cipro and has finished them. A Urine Culture showed Klebsiella pneumoniae. It is sensitive to Cipro. Today her urinary symptoms have resolved. Last 2021 she had diagnosis of osteomyelitis. She was placed on IV antibiotics per Infectious Diseases for 6 weeks until January,. This is important because it establishes a timeline for chronic refractory osteomyelitis. 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 Hyperbaric oxygen therapy was administered as per the facility's protocol.? Hyperbaric oxygen therapy was administered at 2.0 LIONEL in 100% oxygen for 90 minutes without air breaks.? The patient tolerated hyperbaric oxygen therapy well, without complications or complaints. Upon emergence of the hyperbaric chamber, the patient's vital signs remained stable.? She was discharged in good condition. 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 Hyperbaric oxygen therapy was administered as per the facility's protocol.? Hyperbaric oxygen therapy was administered at 2.0 LIONEL in 100% oxygen for 90 minutes without air breaks.? The patient tolerated hyperbaric oxygen therapy well, without complications or complaints. Upon emergence of the hyperbaric chamber, the patient's vital signs remained stable.? She was discharged in good condition. Objective Data Objective Data Vital Signs: Vital Signs Temp Pulse Resp BP O2 Del Method 97.8 F 95 16 121/75 H Room Air 03/21/23 08:56 03/21/23 08:56 03/21/23 08:56 03/21/23 08:56 02/24/23 15:21 Oxygen Delivery Method Room Air Weight: 66.043 kg Body Mass Index (BMI) 22.8 Exam Physical Exam Const alert, oriented x3 and no apparent distress Psych mental status grossly normal, thought process normal, cooperative, affect normal and speech normal Nursing Assessment and Debridement Post-Debridement Measurements and Additional Note: Post-Debridement Measurements/Treatment WC - Nurse 3 - General Ulcer D/C NN Start: 02/24/23 15:21 Freq: Status: Active Protocol: Activity Type Activity Date Activity User E-sign Co-sign Detail Recorded Client Recorded Date Recorded By Document 03/21/23 10:29 [id number] 03/21/23 10:29 03/21/23 10:29 Pain Scale: 0-10 Numeric Is Patient Pain Free? Yes WC - Visit Discharge Discharge Condition Stable Ambulatory Status Wheelchair Transportation Private Auto Medication Reconcilliation completed & Yes provided to patient/care provider Clinical Summary of Care Provided Yes Assessment/Plan Assessment/Plan (1) Osteomyelitis: CODE(S): M86.9 - Osteomyelitis, unspecified QUALIFIERS: Osteomyelitis type: other chronic Osteomyelitis location: other site Qualified Code(s): M86.68 - Other chronic osteomyelitis, other site (2) Sacral decubitus ulcer, stage IV: CODE(S): L89.154 - Pressure ulcer of sacral region, stage 4 PLAN: Plan She is tolerating and benefiting from hyperbaric oxygen therapy which will be continued per the patient's medical plan.
--- NOTE | 2023-03-24 13:54 | HBO.PN.PCM_ITS ---
History of Present Illness Date of Service: 03/24/23 Chief Complaint: Sacral pressure sore, Stage IV. History of Wound: Surgery 12/18/22 - Excision sacral pressure sore, Stage IV, with partial ostectomy for osteomyelitis. Wound care - VAC. Operative Culture - Corynebacterium striatum in the soft tissue and Kocuria kristinae in the bone. Was treated perioperatively with Augmentin and Flagyl for a preop culture positive for Enterococcus faecalis and Anaerobes. Kocuria kristinae in the bone is positive for osteomyelitis. It is significant and should be treated since it didn't show up in the soft tissue culture. She was placed on Augmentin and has finished them. Pathology - Negative for acute osteomyelitis. Chronic reparative and reactive change. Prealbumin from 10/30/22 was 20.1. Encourage nutritional supplementation with protein to help the healing process. MRI Pelvis from 08/21/22 - 2.8 cm decubitus ulcer at the base of the coccyx without discrete evidence of osteomyelitis. At her Wound Center visit on 02/10/23, she had urinary symptoms. A Urinalysis was done which did not report any WBC, and no Bacteria reported. The Leukocyte Esterase was 500. She was started on Cipro and has finished them. A Urine Culture showed Klebsiella pneumoniae. It is sensitive to Cipro. Today her urinary symptoms have resolved. Last 2021 she had diagnosis of osteomyelitis. She was placed on IV antibiotics per Infectious Diseases for 6 weeks until January,. This is important because it establishes a timeline for chronic refractory osteomyelitis. 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 Hyperbaric oxygen therapy was administered as per the facility's protocol.? Hyperbaric oxygen therapy was administered at 2.0 LIONEL in 100% oxygen for 90 minutes without air breaks.? The patient tolerated hyperbaric oxygen therapy well, without complications or complaints. Upon emergence of the hyperbaric chamber, the patient's vital signs remained stable.? She was discharged in good condition. Objective Data Objective Data Vital Signs: Vital Signs Temp Pulse Resp BP O2 Del Method 97.8 F 95 16 121/75 H Room Air 03/21/23 08:56 03/21/23 08:56 03/21/23 08:56 03/21/23 08:56 02/24/23 15:21 Oxygen Delivery Method Room Air Weight: 145 lb 9.6 oz Body Mass Index (BMI) 22.8 Exam Physical Exam Const alert, oriented x3 and no apparent distress HEENT EAC's normal and TM's normal bilaterally Chest inspection of chest normal Resp normal respiratory effort Auscultation: clear to auscultation bilaterally Cardio regular rate and regular rhythm Psych mental status grossly normal, thought process normal, cooperative, affect normal and speech normal Nursing Assessment and Debridement Post-Debridement Measurements and Additional Note: Post-Debridement Measurements/Treatment WC - Nurse 2 - General Ulcer CM Notes Start: 02/24/23 15:21 Freq: Status: Active Protocol: Activity Type Activity Date Activity User E-sign Co-sign Detail Recorded Client Recorded Date Recorded By Document 03/21/23 16:15 PL [id number] 03/21/23 16:15 PL 03/21/23 16:15 Wound Center Nurse 2 #1- sacral -Post Debridement (cm) - Length 3.3 -Post Debridement (cm) - Width 1.2 -Post Debridement (cm) - Depth 4.3 -Total Square (Post) (cm) 3.96 Pain Scale: 0-10 Numeric Is Patient Pain Free? Yes Assessment/Plan Assessment/Plan (1) Osteomyelitis: CODE(S): M86.9 - Osteomyelitis, unspecified QUALIFIERS: Osteomyelitis type: other chronic Osteomyelitis l ocation: other site Qualified Code(s): M86.68 - Other chronic osteomyelitis, other site (2) Sacral decubitus ulcer, stage IV: CODE(S): L89.154 - Pressure ulcer of sacral region, stage 4 PLAN: Plan She is tolerating and benefiting from hyperbaric oxygen therapy which will be continued per the patient's medical plan.
[2023-03-24 15:31] VITALS: BP 117/70; BP 127/73; PULSE 65; PULSE 69; RESP 18; BMI 22.8
--- NOTE | 2023-03-24 16:59 | PCM.WC.PN ---
History of Present Illness Date of Service: 03/24/23 Chief Complaint: Sacral pressure sore, Stage IV. History of Wound: Surgery 12/18/22 - Excision sacral pressure sore, Stage IV, with partial ostectomy for osteomyelitis. Wound care - VAC. Operative Culture - Corynebacterium striatum in the soft tissue and Kocuria kristinae in the bone. Was treated perioperatively with Augmentin and Flagyl for a preop culture positive for Enterococcus faecalis and Anaerobes. Kocuria kristinae in the bone is positive for osteomyelitis. It is significant and should be treated since it didn't show up in the soft tissue culture. She was placed on Augmentin and has finished them. Pathology - Negative for acute osteomyelitis. Chronic reparative and reactive change. Prealbumin from 10/30/22 was 20.1. Encourage nutritional supplementation with protein to help the healing process. MRI Pelvis from 08/21/22 - 2.8 cm decubitus ulcer at the base of the coccyx without discrete evidence of osteomyelitis. At her Wound Center visit on 02/10/23, she had urinary symptoms. A Urinalysis was done which did not report any WBC, and no Bacteria reported. The Leukocyte Esterase was 500. She was started on Cipro and has finished them. A Urine Culture showed Klebsiella pneumoniae. It is sensitive to Cipro. Today her urinary symptoms have resolved. Last 2021 she had diagnosis of osteomyelitis. She was placed on IV antibiotics per Infectious Diseases for 6 weeks until January,. This is important because it establishes a timeline for chronic refractory osteomyelitis. Progress of Wound: Slowly improving, measuring little smaller. She is tolerating the HBO treatments. Objective Data Objective Data Vital Signs: Vital Signs Temp Pulse Resp BP O2 Del Method 97.8 F 69 18 117/70 Room Air 03/21/23 08:56 03/24/23 15:31 03/24/23 15:31 03/24/23 15:31 02/24/23 15:21 Oxygen Delivery Method Room Air Weight: 145 lb 9.6 oz Body Mass Index (BMI) 22.8 Prealbumin from 10/30/22 was 20.1. Encourage nutritional supplementation with protein to help the healing process. Lab / Micro Data Attestation: I reviewed the patient's lab results. Radiography Diagnostic Testing: Study: Chest PA and Lateral Date of Exam: 01/06/23 Exam# [id number] Ordering Dr: Aaron Gregory MD INDICATION: HYPERBARIC OXYGEN THERAPY EXAMINATION/TECHNIQUE: X-RAY - XR Chest 2 Views COMPARISON: No previous relevant examinations available for comparison.. FINDINGS: LIFE-SUPPORT AND LINES: 1. None HEART AND VESSELS: The cardiac silhouette, pulmonary vasculature have normal appearance. No evidence of congestive failure. LUNGS AND PLEURAL SPACES: Lungs are clear. No focal infiltrate, consolidation or effusions. No evidence of pneumothorax. No pulmonary mass is noted. MEDIASTINUM AND HILAR REGIONS: No masses adenopathy noted. No areas of calcification. Visualized upper airway is normal in position. BONY ELEMENTS: No acute bony changes noted. RAD/Chest PA and Lateral IMPRESSION: 1. No evidence of acute cardiopulmonary process Electronically Signed: Humberto Tolentino MD at 1:00 EDT , Charges/Coding Procedures Integumentary [id number]: [id number] Tran musc/fascia 20 sq cm/< (ICD-10 - L89.154, M86.9, M62.3, G35, Z79.620, Z87.891, N39.0) Debridement Note Debridement Note Wound debrided: #1 Sacral area. Laterality: Not Applicable Wound Grade/Stage: IV. Type of Debridement: Excisional debridement Anesthesia Used: 4% Lidocaine Solution and 5% Lidocaine Gel Depth: Down to and including healthy tissue, in the subcutaneous layer, to muscle and to bone (bone is palpable yet covered with granulation tissue. It was not debrided.) Percentage of wound debrided: 100 Instrument Used: 7mm curette Tissue Removed: subcutaneous tissue and muscle. Severity: Fat Layer Exposed (muscle is exposed. bone is palpable yet not exposed. It was not debrided.) Amount of bleeding with debridement: Mild Bleeding Controlled with: Pressure and Compression and gauze Patient tolerated procedure: Patient tolerated procedure well Post-Debridement Measurements and Additional Note: Post-Debridement Measurements/Treatment - Nurse 1 - General Ulcer Assessment Start: 02/24/23 15:21 Freq: Status: Active Protocol: BENIGNO Activity Type Activity Date Activity User E-sign Co-sign Detail Recorded Client Recorded Date Recorded By Document 02/24/23 15:21 BMF Desktop 02/24/23 15:34 BMF Document 03/10/23 15:12 DL Desktop 03/10/23 15:17 DL Document 03/24/23 15:31 DL Desktop 03/24/23 15:33 DL 02/24/23 03/10/23 03/24/23 15:21 15:12 15:31 WC - Today's Visit Information Type of service Follow-up Visit Follow-up Visit Follow-up Visit (Physician/CERTIFICATION AND SELECTION SPECIALIST (Physician/CERTIFICATION AND SELECTION SPECIALIST (Physician/CERTIFICATION AND SELECTION SPECIALIST ) ) ) Arrival Mode Wheelchair Wheelchair Wheelchair Transfer Assistance Transfer Board Other Manual Transfer Assist (Other) 1 2 x2 Patient Identification Verified (Name & Yes Yes Yes ) Patient Requires Transmission-Based No No No Precautions Height and Weight Body Mass Index (BMI) 22.8 22.8 22.8 BMI Classification Normal Normal Normal Vital Signs Temperature (97.8 F-99.1 F) 98.5 F Temperature Source Temporal Pulse Rate (60-100) 93 Pulse Location Monitor Respiratory Rate (12-18) 16 Respiratory rate source Observation Oxygen Delivery Method Room Air Blood Pressure (90/60-120/80) 118/64 Blood Pressure Mean (mm Hg) 82 Source Monitor Position Sitting Blood Pressure Location Left Arm Comment vitals obtained in hbo, just prior to visit. History Since Last Visit- (Skip if this is Patient's initial visit) Have you changed medications since your No No No last visit? Any new allergies or adverse reactions No No No Had a fall/change in ADL's that may No No No increase risk of falls Signs or symptoms of abuse and/or No No No neglect since last visit Have you been in the hospital since your No No No last visit? Has dressing in place as prescribed Yes Yes Yes Has compression in place as prescribed N/A N/A N/A Has offloadiing in place as prescribed N/A N/A Yes Experienced any changes in pain level or No No No management Left Footwear Regular Shoe Regular Shoe Right Footwear Regular Shoe Regular Shoe Pain Scale: 0-10 Numeric Is Patient Pain Free? Yes Yes Yes WC - Nurse 1 - General Ulcer Measurement Start: 02/24/23 15:21 Freq: Status: Active Protocol: Activity Type Activity Date Activity User E-sign Co-sign Detail Recorded Client Recorded Date Recorded By Document 02/24/23 15:21 BMF Desktop 02/24/23 15:34 BMF Document 03/05/23 11:38 PL [id number] 03/05/23 11:42 PL Document 03/10/23 15:12 DL Desktop 03/10/23 15:17 DL Document 03/24/23 15:31 DL Desktop 03/24/23 15:33 DL 02/24/23 03/05/23 03/10/23 15:21 11:38 15:12 Wound Center Nurse 1 #1- sacral -Combined with other wound No No -Current Size (cm) - Length 5 4.5 3.3 -Current Size (cm) - Width 2 1.5 1.4 -Current Size (cm) - Depth 5 5.0 -Total Square Cm 10 6.75 4.62 -Photo Taken No -Epithelialization Small 1-33% -Tunneling No -Undermining/Tunneling No -Circular Undermining No -Exudate Amt Large Large -Exudate Type Serosanguineous Serosanguineous -Wound Margin Distinct, Distinct, Outline Outline Attached Attached -Granulation Amt Large (67-100%) Large (67-100%) -Granulation Quality Red Red -Slough/Fibrin No No -Necrosis Amt None Present (0 None Present (0 %) %) -Necrotic Tissue Type -Texture (Neda-wound Skin Appearance) Assessed, Assessed, Scarring Scarring -Moisture (Neda-wound Skin Appearance) Assessed Assessed -Color (Neda-wound Skin Appearance) Assessed Assessed -Temperature (Neda-wound Skin No Abnormality No Abnormality Appearance) (Pt Warm) (Pt Warm) -Tenderness on Palpation (Neda-wound No No Skin Appearance) -Ulcer Cleansing Soap and Water Soap and Water -Foul Odor after Cleansing No No -Anesthetic Used 4% Lidocaine Solution 03/24/23 15:31 Wound Center Nurse 1 #1- sacral -Combined with other wound -Current Size (cm) - Length 3.3 -Current Size (cm) - Width 1.3 -Current Size (cm) - Depth 4.5 -Total Square Cm 4.29 -Photo Taken -Epithelialization -Tunneling -Undermining/Tunneling -Circular Undermining -Exudate Amt Medium -Exudate Type Serosanguineous -Wound Margin Distinct, Outline Attached -Granulation Amt Large (67-100%) -Granulation Quality Red -Slough/Fibrin -Necrosis Amt Small (1-33%) -Necrotic Tissue Type Adherent Slough -Texture (Neda-wound Skin Appearance) Scarring -Moisture (Neda-wound Skin Appearance) No Abnormality -Color (Neda-wound Skin Appearance) No Abnormality -Temperature (Neda-wound Skin No Abnormality Appearance) (Pt Warm) -Tenderness on Palpation (Neda-wound No Skin Appearance) -Ulcer Cleansing Soap and Water -Foul Odor after Cleansing No -Anesthetic Used WC - Nurse 2 - General Ulcer CM Notes Start: 02/24/23 15:21 Freq: Status: Active Protocol: Activity Type Activity Date Activity User E-sign Co-sign Detail Recorded Client Recorded Date Recorded By Document 02/24/23 15:46 Laptop 02/24/23 15:49 Document 03/10/23 15:30 Laptop 03/10/23 15:33 Document 03/21/23 16:15 PL [id number] 03/21/23 16:15 PL Document 03/24/23 15:59 Laptop 03/24/23 16:03 02/24/23 03/10/23 03/21/23 15:46 15:30 16:15 Wound Center Nurse 2 #1- sacral -Time 15:48 15:31 -Correct Patient Yes Yes -Correct Side, Site, Position Yes Yes -Correct Procedure Yes Yes -Procedure Performed Yes Yes -Type of Procedure Debridement Debridement -Clinical Debridement Muscle / Fascia Muscle / Fascia -Tissue Removed Muscle Muscle,Fascia -Post Debridement (cm) - Length 5.0 3.5 3.3 -Post Debridement (cm) - Width 1.5 1.5 1.2 -Post Debridement (cm) - Depth 4.8 4.6 4.3 -Total Square (Post) (cm) 7.50 5.25 3.96 -Area of Debridement (cm) - Length 5.0 3.5 -Area of Debridement (cm) - Width 1.5 1.5 -Total Square (Area) (cm) 7.50 5.25 -Tunneling No No -Undermining/Tunneling No No -Circular Undermining No No -Wound/Ulcer Outcome Not Healed Not Healed -Ulcer Cleansing Rinsed/ Rinsed/ Irrigated with Irrigated with Saline Saline -Foul Odor after Cleansing No No -Bioengineered Tissue No No -Bleeding Controlled with Pressure Pressure -Treatment Response Procedure Procedure Tolerated Well Tolerated Well -Offloading No No -Pressure Reduction Wheelchair cushion -Debridement - Muscle / Fascia, 1st Yes Yes 20sq cm Pain Scale: 0-10 Numeric Is Patient Pain Free? Yes Yes Yes 03/24/23 15:59 Wound Center Nurse 2 #1- sacral -Time 15:59 -Correct Patient Yes -Correct Side, Site, Position Yes -Correct Procedure Yes -Procedure Performed Yes -Type of Procedure Debridement -Clinical Debridement Muscle / Fascia -Tissue Removed Muscle,Fascia -Post Debridement (cm) - Length 3.0 -Post Debridement (cm) - Width 0.8 -Post Debridement (cm) - Depth 3.5 -Total Square (Post) (cm) 2.40 -Area of Debridement (cm) - Length 3.0 -Area of Debridement (cm) - Width 0.8 -Total Square (Area) (cm) 2.40 -Tunneling No -Undermining/Tunneling No -Circular Undermining No -Wound/Ulcer Outcome Not Healed -Ulcer Cleansing Rinsed/ Irrigated with Saline -Foul Odor after Cleansing No -Bioengineered Tissue No -Bleeding Controlled with Pressure -Treatment Response Procedure Tolerated Well -Offloading No -Pressure Reduction -Debridement - Muscle / Fascia, 1st Yes 20sq cm Pain Scale: 0-10 Numeric Is Patient Pain Free? Yes - Nurse 3 - General Ulcer D/C NN Start: 02/24/23 15:21 Freq: Status: Active Protocol: Activity Type Activity Date Activity User E-sign Co-sign Detail Recorded Client Recorded Date Recorded By Document 02/24/23 16:16 F Desktop 02/24/23 16:17 BM Document 02/28/23 10:18 JF Laptop 02/28/23 10:23 JF Document 03/07/23 10:28 JF Laptop 03/07/23 10:32 JF Document 03/10/23 15:45 DL Desktop 03/10/23 15:46 DL Document 03/21/23 10:29 [id number] 03/21/23 10:29 Document 03/24/23 16:11 DL Desktop 03/24/23 16:11 DL 02/24/23 02/28/23 03/07/23 16:16 10:18 10:28 Wound Care Center Nurse 3 #1- sacral -Ulcer Cleansing Rinsed/ Irrigated with Saline -Foul Odor after Cleansing No -Negative Pressure Wound Therapy Continue -Setting (mmHg) 150 -Negative Pressure is Continuous -NPWT Application Charge NPWT & Debridement (nc ) Treatment Response Procedure Tolerated Well Pain Scale: 0-10 Numeric Is Patient Pain Free? Yes Yes Yes WC - Visit Discharge Discharge Condition Stable Stable Stable Ambulatory Status Wheelchair Wheelchair Wheelchair Transportation Private Auto Private Auto Private Auto Medication Reconcilliation completed & No provided to patient/care provider Clinical Summary of Care Provided No 03/10/23 03/21/23 03/24/23 15:45 10:29 16:11 Wound Care Center Nurse 3 #1- sacral -Ulcer Cleansing Soap and Water Soap and Water -Foul Odor after Cleansing No No -Negative Pressure Wound Therapy Continue Continue -Setting (mmHg) 150 150 -Negative Pressure is Continuous Continuous -NPWT Application Charge NPWT & NPWT & Debridement (nc Debridement (nc ) ) Treatment Response Procedure Procedure Tolerated Well Tolerated Well Pain Scale: 0-10 Numeric Is Patient Pain Free? Yes Yes Yes WC - Visit Discharge Discharge Condition Stable Stable Stable Ambulatory Status Wheelchair Wheelchair Wheelchair Transportation Private Auto Private Auto Private Auto Medication Reconcilliation completed & Yes provided to patient/care provider Clinical Summary of Care Provided Yes Assessment/Plan Assessment/Plan (1) Sacral decubitus ulcer, stage IV: CODE(S): L89.154 - Pressure ulcer of sacral region, stage 4 (2) Osteomyelitis: CODE(S): M86.9 - Osteomyelitis, unspecified QUALIFIERS: Osteomyelitis type: other chronic Osteomyelitis location: other site Qualified Code(s): M86.68 - Other chronic osteomyelitis, other site (3) Immobility syndrome (paraplegic): CODE(S): M62.3 - Immobility syndrome (paraplegic) (4) Multiple sclerosis: CODE(S): G35 - Multiple sclerosis (5) Long-term current use of rituximab: CODE(S): Z79.620 - skilled nursing (current) use of immunosuppressive biologic (6) Former smoker: CODE(S): Z87.891 - Personal history of nicotine dependence (7) UTI (urinary tract infection): CODE(S): N39.0 - Urinary tract infection, site not specified PLAN: Plan Continue the VAC at 150 mmHg. Kocuria sherlyistinae in the bone is positive for osteomyelitis. It is significant and should be treated since it didn't show up in the soft tissue culture. She was placed on Augmentin per Infectious Diseases recommendation. She has finished the Augmentin. On 10/30/22, it was 20.1. Encourage nutritional supplementation with protein to help the healing process. Last 2021 she had diagnosis of osteomyelitis. She was placed on IV antibiotics per Infectious Diseases for 6 weeks until January,. This is important because it establishes a timeline for chronic refractory osteomyelitis. She is a candidate for HBO Treatments. We have received insurance approval for the HBO treatments. Usual amount is 40-60 treatments. She had a CXR on 01/06/23. It showed no evidence of acute cardiopulmonary process. No evidence of congestive heart failure. No evidence pneumothorax. No focal infiltrates, consolidations, or effusions. I looked in her ears with an otoscope at her visit on 01/06/23. She had normal tympanic membranes. No bleeding was seen in the tympanic membranes. No fluid was seen behind the tympanic membranes. She has started the HBO treatments and is tolerating them thus far. She will continue the HBO treatments as improvement has been noted with granulation tissue over the bone. She had a Urinalysis on 02/10/23. It showed Leukocyte Esterase. Urine Culture showed Klebsiella pneumoniae. She was treated with Cipro. Today her symptoms have resolved. Followup 2 weeks.
--- NOTE | 2023-03-25 12:29 | HBO.PN.PCM_ITS ---
History of Present Illness Date of Service: 03/25/23 Chief Complaint: Sacral pressure sore, Stage IV. History of Wound: Surgery 12/18/22 - Excision sacral pressure sore, Stage IV, with partial ostectomy for osteomyelitis. Wound care - VAC. Operative Culture - Corynebacterium striatum in the soft tissue and Kocuria kristinae in the bone. Was treated perioperatively with Augmentin and Flagyl for a preop culture positive for Enterococcus faecalis and Anaerobes. Kocuria kristinae in the bone is positive for osteomyelitis. It is significant and should be treated since it didn't show up in the soft tissue culture. She was placed on Augmentin and has finished them. Pathology - Negative for acute osteomyelitis. Chronic reparative and reactive change. Prealbumin from 10/30/22 was 20.1. Encourage nutritional supplementation with protein to help the healing process. MRI Pelvis from 08/21/22 - 2.8 cm decubitus ulcer at the base of the coccyx without discrete evidence of osteomyelitis. At her Wound Center visit on 02/10/23, she had urinary symptoms. A Urinalysis was done which did not report any WBC, and no Bacteria reported. The Leukocyte Esterase was 500. She was started on Cipro and has finished them. A Urine Culture showed Klebsiella pneumoniae. It is sensitive to Cipro. Today her urinary symptoms have resolved. Last 2021 she had diagnosis of osteomyelitis. She was placed on IV antibiotics per Infectious Diseases for 6 weeks until January,. This is important because it establishes a timeline for chronic refractory osteomyelitis. Subjective Subjective Today she presents for hyperbaric oxygen therapy session 34 for treatment of chronic refractory osteomyelitis of her sacrum with stage 4 pressure ulcer. Hyperbaric oxygen therapy was administered as per the facility's protocol.? Hyperbaric oxygen therapy was administered at 2.0 LIONEL in 100% oxygen for 90 minutes without air breaks.? The patient tolerated hyperbaric oxygen therapy well, without complications or complaints. Upon emergence of the hyperbaric chamber, the patient's vital signs remained stable.? She was discharged in good condition. Objective Data Objective Data Vital Signs: Vital Signs Temp Pulse Resp BP O2 Del Method 97.8 F 69 18 117/70 Room Air 03/21/23 08:56 03/24/23 15:31 03/24/23 15:31 03/24/23 15:31 02/24/23 15:21 Oxygen Delivery Method Room Air Weight: 145 lb 9.6 oz Body Mass Index (BMI) 22.8 Exam Physical Exam Const alert, oriented x3 and no apparent distress HEENT EAC's normal and TM's normal bilaterally Chest inspection of chest normal Resp normal respiratory effort Auscultation: clear to auscultation bilaterally Cardio regular rate and regular rhythm Psych mental status grossly normal, thought process normal, cooperative, affect normal and speech normal Nursing Assessment and Debridement Post-Debridement Measurements and Additional Note: Post-Debridement Measurements/Treatment WC - Nurse 1 - General Ulcer Assessment Start: 02/24/23 15:21 Freq: Status: Active Protocol: BENIGNO Activity Type Activity Date Activity User E-sign Co-sign Detail Recorded Client Recorded Date Recorded By Document 03/24/23 15:31 DL Desktop 03/24/23 15:33 DL 03/24/23 15:31 WC - Today's Visit Information Type of service Follow-up Visit (Physician/ACCOUNT SERVICES ASSOCIATE ) Arrival Mode Wheelchair Transfer Assistance Manual Transfer Assist (Other) x2 Patient Identification Verified (Name & Yes ) Patient Requires Transmission-Based No Precautions Height and Weight Body Mass Index (BMI) 22.8 BMI Classification Normal History Since Last Visit- (Skip if this is Patient's initial visit) Have you changed medications since your No last visit? Any new allergies or adverse reactions No Had a fall/change in ADL's that may No increase risk of falls Signs or symptoms of abuse and/or No neglect since last visit Have you been in the hospital since your No last visit? Has dressing in place as prescribed Yes Has compression in place as prescribed N/A Has offloadiing in place as prescribed Yes Experienced any changes in pain level or No management Pain Scale: 0-10 Numeric Is Patient Pain Free? Yes WC - Nurse 1 - General Ulcer Measurement Start: 02/24/23 15:21 Freq: Status: Active Protocol: Activity Type Activity Date Activity User E-sign Co-sign Detail Recorded Client Recorded Date Recorded By Document 03/24/23 15:31 DL Desktop 03/24/23 15:33 DL 03/24/23 15:31 Wound Center Nurse 1 #1- sacral -Current Size (cm) - Length 3.3 -Current Size (cm) - Width 1.3 -Current Size (cm) - Depth 4.5 -Total Square Cm 4.29 -Exudate Amt Medium -Exudate Type Serosanguineous -Wound Margin Distinct, Outline Attached -Granulation Amt Large (67-100%) -Granulation Quality Red -Necrosis Amt Small (1-33%) -Necrotic Tissue Type Adherent Slough -Texture (Neda-wound Skin Appearance) Scarring -Moisture (Neda-wound Skin Appearance) No Abnormality -Color (Neda-wound Skin Appearance) No Abnormality -Temperature (Neda-wound Skin No Abnormality Appearance) (Pt Warm) -Tenderness on Palpation (Neda-wound No Skin Appearance) -Ulcer Cleansing Soap and Water -Foul Odor after Cleansing No WC - Nurse 2 - General Ulcer CM Notes Start: 02/24/23 15:21 Freq: Status: Active Protocol: Activity Type Activity Date Activity User E-sign Co-sign Detail Recorded Client Recorded Date Recorded By Document 03/24/23 15:59 Laptop 03/24/23 16:03 03/24/23 15:59 Wound Center Nurse 2 -Time 15:59 -Correct Patient Yes -Correct Side, Site, Position Yes -Correct Procedure Yes -Procedure Performed Yes -Type of Procedure Debridement -Clinical Debridement Muscle / Fascia -Tissue Removed Muscle,Fascia -Post Debridement (cm) - Length 3.0 -Post Debridement (cm) - Width 0.8 -Post Debridement (cm) - Depth 3.5 -Total Square (Post) (cm) 2.40 -Area of Debridement (cm) - Length 3.0 -Area of Debridement (cm) - Width 0.8 -Total Square (Area) (cm) 2.40 -Tunneling No -Undermining/Tunneling No -Circular Undermining No -Wound/Ulcer Outcome Not Healed -Ulcer Cleansing Rinsed/ Irrigated with Saline -Foul Odor after Cleansing No -Bioengineered Tissue No -Bleeding Controlled with Pressure -Treatment Response Procedure Tolerated Well -Offloading No -Debridement - Muscle / Fascia, 1st Yes 20sq cm Pain Scale: 0-10 Numeric Is Patient Pain Free? Yes WC - Nurse 3 - General Ulcer D/C NN Start: 02/24/23 15:21 Freq: Status: Active Protocol: Activity Type Activity Date Activity User E-sign Co-sign Detail Recorded Client Recorded Date Recorded By Document 03/24/23 16:11 DL Desktop 03/24/23 16:11 DL 03/24/23 16:11 Wound Care Center Nurse 3 #1- sacral -Ulcer Cleansing Soap and Water -Foul Odor after Cleansing No -Negative Pressure Wound Therapy Continue -Setting (mmHg) 150 -Negative Pressure is Continuous -NPWT Application Charge NPWT & Debridement (nc ) Treatment Response Procedure Tolerated Well Pain Scale: 0-10 Numeric Is Patient Pain Free? Yes WC - Visit Discharge Discharge Condition Stable Ambulatory Status Wheelchair Transportation Private Auto Assessment/Plan Assessment/Plan (1) Osteomyelitis: CODE(S): M86.9 - Osteomyelitis, unspecified QUALIFIERS: Osteomyelitis type: other chronic Osteomyelitis location: other site Qualified Code(s): M86.68 - Other chronic osteomyelitis, other site (2) Sacral decubitus ulcer, stage IV: CODE(S): L89.154 - Pressure ulcer of sacral region, stage 4 PLAN: Plan She is tolerating and benefiting from hyperbaric oxygen therapy which will be continued per the patient's medical plan.
[2023-03-25 13:53] VITALS: BP 113/67; BP 115/63; PULSE 104; PULSE 71; RESP 18
== END 2023-03-25 23:59 | disposition home or self-care (01) ==
LOC: WC 11:30
PROVIDERS: PCP Family Medicine; Referring Provider Nurse Practitioner; Visit Provider Nurse Practitioner Family
DX: M46.28 Osteomyelitis of vertebra, sacral and sacrococcygeal region (principal); L89.154 Pressure ulcer of sacral region, stage 4
CPT/HCPCS: 11043; 99183; G0277

== ENCOUNTER 2023-04-14 15:30 | Outpatient (RCR) | payer MEDICARE, BC, SELFPAY ==
[2023-03-26 00:50] VITALS: BP 115/63; PULSE 104; RESP 18; TEMP 36.3; BMI 22.8
--- NOTE | 2023-03-26 13:20 | PCM.HBO.PN ---
History of Present Illness Date of Service: 03/26/23 Chief Complaint: Sacral pressure sore, Stage IV. History of Wound: Surgery 12/18/22 - Excision sacral pressure sore, Stage IV, with partial ostectomy for osteomyelitis. Wound care - VAC. Operative Culture - Corynebacterium striatum in the soft tissue and Kocuria kristinae in the bone. Was treated perioperatively with Augmentin and Flagyl for a preop culture positive for Enterococcus faecalis and Anaerobes. Kocuria kristinae in the bone is positive for osteomyelitis. It is significant and should be treated since it didn't show up in the soft tissue culture. She was placed on Augmentin and has finished them. Pathology - Negative for acute osteomyelitis. Chronic reparative and reactive change. Prealbumin from 10/30/22 was 20.1. Encourage nutritional supplementation with protein to help the healing process. MRI Pelvis from 08/21/22 - 2.8 cm decubitus ulcer at the base of the coccyx without discrete evidence of osteomyelitis. At her Wound Center visit on 02/10/23, she had urinary symptoms. A Urinalysis was done which did not report any WBC, and no Bacteria reported. The Leukocyte Esterase was 500. She was started on Cipro and has finished them. A Urine Culture showed Klebsiella pneumoniae. It is sensitive to Cipro. Today her urinary symptoms have resolved. Last 2021 she had diagnosis of osteomyelitis. She was placed on IV antibiotics per Infectious Diseases for 6 weeks until January,. This is important because it establishes a timeline for chronic refractory osteomyelitis. 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 Hyperbaric oxygen therapy was administered as per the facility's protocol.? Hyperbaric oxygen therapy was administered at 2.0 LIONEL in 100% oxygen for 90 minutes without air breaks.? The patient tolerated hyperbaric oxygen therapy well, without complications or complaints. Upon emergence of the hyperbaric chamber, the patient's vital signs remained stable.? She was discharged in good condition. Objective Data Objective Data Vital Signs: Vital Signs Temp Pulse Resp BP 97.3 F L 104 H 18 115/63 03/26/23 00:50 03/26/23 00:50 03/26/23 00:50 03/26/23 00:50 Weight: 145 lb 9.6 oz Body Mass Index (BMI) 22.8 Exam Physical Exam Const alert, oriented x3 and no apparent distress HEENT TM's normal bilaterally Chest inspection of chest normal Resp normal respiratory effort Auscultation: clear to auscultation bilaterally Cardio regular rate and regular rhythm Psych mental status grossly normal, thought process normal, cooperative, affect normal and speech normal Assessment/Plan Assessment/Plan (1) Osteomyelitis: CODE(S): M86.9 - Osteomyelitis, unspecified QUALIFIERS: Osteomyelitis type: other chronic Osteomyelitis location: other site Qualified Code(s): M86.68 - Other chronic osteomyelitis, other site (2) Sacral decubitus ulcer, stage IV: CODE(S): L89.154 - Pressure ulcer of sacral region, stage 4 PLAN: Plan She is tolerating and benefiting from hyperbaric oxygen therapy which will be continued per the patient's medical plan.
[2023-03-26 15:26] VITALS: BP 101/55; BP 108/65; PULSE 59; PULSE 98; RESP 18
--- NOTE | 2023-03-27 13:38 | PCM.HBO.PN ---
History of Present Illness Date of Service: 03/27/23 Chief Complaint: Sacral pressure sore, Stage IV. History of Wound: Surgery 12/18/22 - Excision sacral pressure sore, Stage IV, with partial ostectomy for osteomyelitis. Wound care - VAC. Operative Culture - Corynebacterium striatum in the soft tissue and Kocuria kristinae in the bone. Was treated perioperatively with Augmentin and Flagyl for a preop culture positive for Enterococcus faecalis and Anaerobes. Kocuria kristinae in the bone is positive for osteomyelitis. It is significant and should be treated since it didn't show up in the soft tissue culture. She was placed on Augmentin and has finished them. Pathology - Negative for acute osteomyelitis. Chronic reparative and reactive change. Prealbumin from 10/30/22 was 20.1. Encourage nutritional supplementation with protein to help the healing process. MRI Pelvis from 08/21/22 - 2.8 cm decubitus ulcer at the base of the coccyx without discrete evidence of osteomyelitis. At her Wound Center visit on 02/10/23, she had urinary symptoms. A Urinalysis was done which did not report any WBC, and no Bacteria reported. The Leukocyte Esterase was 500. She was started on Cipro and has finished them. A Urine Culture showed Klebsiella pneumoniae. It is sensitive to Cipro. Today her urinary symptoms have resolved. Last 2021 she had diagnosis of osteomyelitis. She was placed on IV antibiotics per Infectious Diseases for 6 weeks until January,. This is important because it establishes a timeline for chronic refractory osteomyelitis. 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 Hyperbaric oxygen therapy was administered as per the facility's protocol.? Hyperbaric oxygen therapy was administered at 2.0 LIONEL in 100% oxygen for 90 minutes without air breaks.? The patient tolerated hyperbaric oxygen therapy well, without complications or complaints. Upon emergence of the hyperbaric chamber, the patient's vital signs remained stable.? She was discharged in good condition. Objective Data Objective Data Vital Signs: Vital Signs Temp Pulse Resp BP 97.3 F L 98 18 101/55 L 03/26/23 00:50 03/26/23 15:26 03/26/23 15:26 03/26/23 15:26 Weight: 145 lb 9.6 oz Body Mass Index (BMI) 22.8 Exam Physical Exam Const alert, oriented x3 and no apparent distress HEENT TM's normal bilaterally Chest inspection of chest normal Resp normal respiratory effort Auscultation: clear to auscultation bilaterally Cardio regular rate and regular rhythm Psych mental status grossly normal, thought process normal, cooperative, affect normal and speech normal Assessment/Plan Assessment/Plan (1) Osteomyelitis: CODE(S): M86.9 - Osteomyelitis, unspecified QUALIFIERS: Osteomyelitis type: other chronic Osteomyelitis location: other site Qualified Code(s): M86.68 - Other chronic osteomyelitis, other site (2) Sacral decubitus ulcer, stage IV: CODE(S): L89.154 - Pressure ulcer of sacral region, stage 4 PLAN: Plan She is tolerating and benefiting from hyperbaric oxygen therapy which will be continued per the patient's medical plan.
[2023-03-27 13:48] VITALS: BP 111/70; BP 119/79; PULSE 61; PULSE 97; RESP 18; TEMP 36.6; TEMP 37.1
[2023-03-28 10:23] VITALS: BP 101/68; BP 119/70; PULSE 66; PULSE 80; RESP 18; TEMP 36.2; TEMP 36.4
--- NOTE | 2023-03-28 15:04 | PCM.HBO.PN ---
History of Present Illness Date of Service: 03/28/23 Chief Complaint: Sacral pressure sore, Stage IV. History of Wound: Surgery 12/18/22 - Excision sacral pressure sore, Stage IV, with partial ostectomy for osteomyelitis. Wound care - VAC. Operative Culture - Corynebacterium striatum in the soft tissue and Kocuria kristinae in the bone. Was treated perioperatively with Augmentin and Flagyl for a preop culture positive for Enterococcus faecalis and Anaerobes. Kocuria kristinae in the bone is positive for osteomyelitis. It is significant and should be treated since it didn't show up in the soft tissue culture. She was placed on Augmentin and has finished them. Pathology - Negative for acute osteomyelitis. Chronic reparative and reactive change. Prealbumin from 10/30/22 was 20.1. Encourage nutritional supplementation with protein to help the healing process. MRI Pelvis from 08/21/22 - 2.8 cm decubitus ulcer at the base of the coccyx without discrete evidence of osteomyelitis. At her Wound Center visit on 02/10/23, she had urinary symptoms. A Urinalysis was done which did not report any WBC, and no Bacteria reported. The Leukocyte Esterase was 500. She was started on Cipro and has finished them. A Urine Culture showed Klebsiella pneumoniae. It is sensitive to Cipro. Today her urinary symptoms have resolved. Last 2021 she had diagnosis of osteomyelitis. She was placed on IV antibiotics per Infectious Diseases for 6 weeks until January,. This is important because it establishes a timeline for chronic refractory osteomyelitis. 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 Hyperbaric oxygen therapy was administered as per the facility's protocol.? Hyperbaric oxygen therapy was administered at 2.0 LIONEL in 100% oxygen for 90 minutes without air breaks.? The patient tolerated hyperbaric oxygen therapy well, without complications or complaints. Upon emergence of the hyperbaric chamber, the patient's vital signs remained stable.? She was discharged in good condition. Objective Data Objective Data Vital Signs: Vital Signs Temp Pulse Resp BP 97.5 F L 80 18 101/68 03/28/23 10:23 03/28/23 10:23 03/28/23 10:23 03/28/23 10:23 Weight: 66.043 kg Body Mass Index (BMI) 22.8 Exam Physical Exam Const alert, oriented x3 and no apparent distress HEENT TM's normal bilaterally Chest inspection of chest normal Resp normal respiratory effort Auscultation: clear to auscultation bilaterally Cardio regular rate and regular rhythm Psych mental status grossly normal, thought process normal, cooperative, affect normal and speech normal Nursing Assessment and Debridement Post-Debridement Measurements and Additional Note: Post-Debridement Measurements/Treatment WC - Nurse 3 - General Ulcer D/C NN Start: 03/26/23 15:26 Freq: Status: Active Protocol: Activity Type Activity Date Activity User E-sign Co-sign Detail Recorded Client Recorded Date Recorded By Document 03/28/23 10:23 Laptop 03/28/23 10:26 03/28/23 10:23 Pain Scale: 0-10 Numeric Is Patient Pain Free? Yes WC - Visit Discharge Discharge Condition Stable Ambulatory Status Wheelchair Transportation Private Auto Medication Reconcilliation completed & No provided to patient/care provider Clinical Summary of Care Provided No Assessment/Plan Assessment/Plan (1) Osteomyelitis: CODE(S): M86.9 - Osteomyelitis, unspecified QUALIFIERS: Osteomyelitis type: other chronic Osteomyelitis location: other site Qualified Code(s): M86.68 - Other chronic osteomyelitis, other site (2) Sacral decubitus ulcer, stage IV: CODE(S): L89.154 - Pressure ulcer of sacral region, stage 4 PLAN: Plan She is tolerating and benefiting from hyperbaric oxygen therapy which will be continued per the patient's medical plan.
--- NOTE | 2023-04-01 11:22 | PCM.HBO.PN ---
History of Present Illness Date of Service: 04/01/23 Chief Complaint: Sacral pressure sore, Stage IV. History of Wound: Surgery 12/18/22 - Excision sacral pressure sore, Stage IV, with partial ostectomy for osteomyelitis. Wound care - VAC. Operative Culture - Corynebacterium striatum in the soft tissue and Kocuria kristinae in the bone. Was treated perioperatively with Augmentin and Flagyl for a preop culture positive for Enterococcus faecalis and Anaerobes. Kocuria kristinae in the bone is positive for osteomyelitis. It is significant and should be treated since it didn't show up in the soft tissue culture. She was placed on Augmentin and has finished them. Pathology - Negative for acute osteomyelitis. Chronic reparative and reactive change. Prealbumin from 10/30/22 was 20.1. Encourage nutritional supplementation with protein to help the healing process. MRI Pelvis from 08/21/22 - 2.8 cm decubitus ulcer at the base of the coccyx without discrete evidence of osteomyelitis. At her Wound Center visit on 02/10/23, she had urinary symptoms. A Urinalysis was done which did not report any WBC, and no Bacteria reported. The Leukocyte Esterase was 500. She was started on Cipro and has finished them. A Urine Culture showed Klebsiella pneumoniae. It is sensitive to Cipro. Today her urinary symptoms have resolved. Last 2021 she had diagnosis of osteomyelitis. She was placed on IV antibiotics per Infectious Diseases for 6 weeks until January,. This is important because it establishes a timeline for chronic refractory osteomyelitis. 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 Hyperbaric oxygen therapy was administered as per the facility's protocol.? Hyperbaric oxygen therapy was administered at 2.0 LIONEL in 100% oxygen for 90 minutes without air breaks.? The patient tolerated hyperbaric oxygen therapy well, without complications or complaints. Upon emergence of the hyperbaric chamber, the patient's vital signs remained stable.? She was discharged in good condition. Objective Data Objective Data Vital Signs: Vital Signs Temp Pulse Resp BP 97.5 F L 80 18 101/68 03/28/23 10:23 03/28/23 10:23 03/28/23 10:23 03/28/23 10:23 Weight: 145 lb 9.6 oz Body Mass Index (BMI) 22.8 Exam Physical Exam Const alert, oriented x3 and no apparent distress HEENT TM's normal bilaterally Chest inspection of chest normal Resp normal respiratory effort Auscultation: clear to auscultation bilaterally Cardio regular rate and regular rhythm Psych mental status grossly normal, thought process normal, cooperative, affect normal and speech normal Assessment/Plan Assessment/Plan (1) Osteomyelitis: CODE(S): M86.9 - Osteomyelitis, unspecified QUALIFIERS: Osteomyelitis type: other chronic Osteomyelitis location: other site Qualified Code(s): M86.68 - Other chronic osteomyelitis, other site (2) Sacral decubitus ulcer, stage IV: CODE(S): L89.154 - Pressure ulcer of sacral region, stage 4 PLAN: Plan She is tolerating and benefiting from hyperbaric oxygen therapy which will be continued per the patient's medical plan.
[2023-04-01 11:55] VITALS: BP 109/69; BP 116/73; PULSE 62; PULSE 85; RESP 16; RESP 18; TEMP 36.2
--- NOTE | 2023-04-02 13:37 | PCM.HBO.PN ---
History of Present Illness Date of Service: 04/02/23 Chief Complaint: Sacral pressure sore, Stage IV. History of Wound: Surgery 12/18/22 - Excision sacral pressure sore, Stage IV, with partial ostectomy for osteomyelitis. Wound care - VAC. Operative Culture - Corynebacterium striatum in the soft tissue and Kocuria kristinae in the bone. Was treated perioperatively with Augmentin and Flagyl for a preop culture positive for Enterococcus faecalis and Anaerobes. Kocuria kristinae in the bone is positive for osteomyelitis. It is significant and should be treated since it didn't show up in the soft tissue culture. She was placed on Augmentin and has finished them. Pathology - Negative for acute osteomyelitis. Chronic reparative and reactive change. Prealbumin from 10/30/22 was 20.1. Encourage nutritional supplementation with protein to help the healing process. MRI Pelvis from 08/21/22 - 2.8 cm decubitus ulcer at the base of the coccyx without discrete evidence of osteomyelitis. At her Wound Center visit on 02/10/23, she had urinary symptoms. A Urinalysis was done which did not report any WBC, and no Bacteria reported. The Leukocyte Esterase was 500. She was started on Cipro and has finished them. A Urine Culture showed Klebsiella pneumoniae. It is sensitive to Cipro. Today her urinary symptoms have resolved. Last 2021 she had diagnosis of osteomyelitis. She was placed on IV antibiotics per Infectious Diseases for 6 weeks until January,. This is important because it establishes a timeline for chronic refractory osteomyelitis. 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 Hyperbaric oxygen therapy was administered as per the facility's protocol.? Hyperbaric oxygen therapy was administered at 2.0 LIONEL in 100% oxygen for 90 minutes without air breaks.? The patient tolerated hyperbaric oxygen therapy well, without complications or complaints. Upon emergence of the hyperbaric chamber, the patient's vital signs remained stable.? She was discharged in good condition. Objective Data Objective Data Vital Signs: Vital Signs Temp Pulse Resp BP 97.1 F L 85 16 116/73 04/01/23 11:55 04/01/23 11:55 04/01/23 11:55 04/01/23 11:55 Weight: 145 lb 9.6 oz Body Mass Index (BMI) 22.8 Exam Physical Exam Const alert, oriented x3 and no apparent distress HEENT TM's normal bilaterally Chest inspection of chest normal Resp normal respiratory effort Auscultation: clear to auscultation bilaterally Cardio regular rate and regular rhythm Psych mental status grossly normal, thought process normal, cooperative, affect normal and speech normal Assessment/Plan Assessment/Plan (1) Osteomyelitis: CODE(S): M86.9 - Osteomyelitis, unspecified QUALIFIERS: Osteomyelitis type: other chronic Osteomyelitis location: other site Qualified Code(s): M86.68 - Other chronic osteomyelitis, other site (2) Sacral decubitus ulcer, stage IV: CODE(S): L89.154 - Pressure ulcer of sacral region, stage 4 PLAN: Plan She is tolerating and benefiting from hyperbaric oxygen therapy which will be continued per the patient's medical plan.
[2023-04-02 17:01] VITALS: BP 101/63; BP 96/60; PULSE 101; PULSE 65; RESP 18
[2023-04-03 13:12] VITALS: BP 103/67; BP 106/69; PULSE 69; PULSE 85; RESP 18; TEMP 36.2; TEMP 36.3
--- NOTE | 2023-04-03 13:14 | PCM.HBO.PN ---
History of Present Illness Date of Service: 04/03/23 Chief Complaint: Sacral pressure sore, Stage IV. History of Wound: Surgery 12/18/22 - Excision sacral pressure sore, Stage IV, with partial ostectomy for osteomyelitis. Wound care - VAC. Operative Culture - Corynebacterium striatum in the soft tissue and Kocuria kristinae in the bone. Was treated perioperatively with Augmentin and Flagyl for a preop culture positive for Enterococcus faecalis and Anaerobes. Kocuria kristinae in the bone is positive for osteomyelitis. It is significant and should be treated since it didn't show up in the soft tissue culture. She was placed on Augmentin and has finished them. Pathology - Negative for acute osteomyelitis. Chronic reparative and reactive change. Prealbumin from 10/30/22 was 20.1. Encourage nutritional supplementation with protein to help the healing process. MRI Pelvis from 08/21/22 - 2.8 cm decubitus ulcer at the base of the coccyx without discrete evidence of osteomyelitis. At her Wound Center visit on 02/10/23, she had urinary symptoms. A Urinalysis was done which did not report any WBC, and no Bacteria reported. The Leukocyte Esterase was 500. She was started on Cipro and has finished them. A Urine Culture showed Klebsiella pneumoniae. It is sensitive to Cipro. Today her urinary symptoms have resolved. Last 2021 she had diagnosis of osteomyelitis. She was placed on IV antibiotics per Infectious Diseases for 6 weeks until January,. This is important because it establishes a timeline for chronic refractory osteomyelitis. 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 Hyperbaric oxygen therapy was administered as per the facility's protocol.? Hyperbaric oxygen therapy was administered at 2.0 LIONEL in 100% oxygen for 90 minutes without air breaks.? The patient tolerated hyperbaric oxygen therapy well, without complications or complaints. Upon emergence of the hyperbaric chamber, the patient's vital signs remained stable.? She was discharged in good condition. Objective Data Objective Data Vital Signs: Vital Signs Temp Pulse Resp BP 97.1 F L 101 H 18 101/63 04/01/23 11:55 04/02/23 17:01 04/02/23 17:01 04/02/23 17:01 Weight: 145 lb 9.6 oz Body Mass Index (BMI) 22.8 Exam Physical Exam Const alert, oriented x3 and no apparent distress HEENT TM's normal bilaterally Chest inspection of chest normal Resp normal respiratory effort Auscultation: clear to auscultation bilaterally Cardio regular rate and regular rhythm Psych mental status grossly normal, thought process normal, cooperative, affect normal and speech normal Assessment/Plan Assessment/Plan (1) Osteomyelitis: CODE(S): M86.9 - Osteomyelitis, unspecified QUALIFIERS: Osteomyelitis type: other chronic Osteomyelitis location: other site Qualified Code(s): M86.68 - Other chronic osteomyelitis, other site (2) Sacral decubitus ulcer, stage IV: CODE(S): L89.154 - Pressure ulcer of sacral region, stage 4 PLAN: Plan She is tolerating and benefiting from hyperbaric oxygen therapy which will be continued per the patient's medical plan.
[2023-04-04 10:24] VITALS: BP 109/71; BP 124/66; PULSE 72; PULSE 81; RESP 18
--- NOTE | 2023-04-04 12:19 | PCM.HBO.PN ---
History of Present Illness Date of Service: 04/04/23 Chief Complaint: Sacral pressure sore, Stage IV. History of Wound: Surgery 12/18/22 - Excision sacral pressure sore, Stage IV, with partial ostectomy for osteomyelitis. Wound care - VAC. Operative Culture - Corynebacterium striatum in the soft tissue and Kocuria kristinae in the bone. Was treated perioperatively with Augmentin and Flagyl for a preop culture positive for Enterococcus faecalis and Anaerobes. Kocuria kristinae in the bone is positive for osteomyelitis. It is significant and should be treated since it didn't show up in the soft tissue culture. She was placed on Augmentin and has finished them. Pathology - Negative for acute osteomyelitis. Chronic reparative and reactive change. Prealbumin from 10/30/22 was 20.1. Encourage nutritional supplementation with protein to help the healing process. MRI Pelvis from 08/21/22 - 2.8 cm decubitus ulcer at the base of the coccyx without discrete evidence of osteomyelitis. At her Wound Center visit on 02/10/23, she had urinary symptoms. A Urinalysis was done which did not report any WBC, and no Bacteria reported. The Leukocyte Esterase was 500. She was started on Cipro and has finished them. A Urine Culture showed Klebsiella pneumoniae. It is sensitive to Cipro. Today her urinary symptoms have resolved. Last 2021 she had diagnosis of osteomyelitis. She was placed on IV antibiotics per Infectious Diseases for 6 weeks until January,. This is important because it establishes a timeline for chronic refractory osteomyelitis. 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 Hyperbaric oxygen therapy was administered as per the facility's protocol.? Hyperbaric oxygen therapy was administered at 2.0 LIONEL in 100% oxygen for 90 minutes without air breaks.? The patient tolerated hyperbaric oxygen therapy well, without complications or complaints. Upon emergence of the hyperbaric chamber, the patient's vital signs remained stable.? She was discharged in good condition. Objective Data Objective Data Vital Signs: Vital Signs Temp Pulse Resp BP 97.4 F L 81 18 109/71 04/03/23 13:12 04/04/23 10:24 04/04/23 10:24 04/04/23 10:24 Weight: 66.043 kg Body Mass Index (BMI) 22.8 Exam Physical Exam Const alert, oriented x3 and no apparent distress HEENT TM's normal bilaterally Chest inspection of chest normal Resp normal respiratory effort Auscultation: clear to auscultation bilaterally Cardio regular rate and regular rhythm Psych mental status grossly normal, thought process normal, cooperative, affect normal and speech normal Assessment/Plan Assessment/Plan (1) Osteomyelitis: CODE(S): M86.9 - Osteomyelitis, unspecified QUALIFIERS: Osteomyelitis type: other chronic Osteomyelitis location: other site Qualified Code(s): M86.68 - Other chronic osteomyelitis, other site (2) Sacral decubitus ulcer, stage IV: CODE(S): L89.154 - Pressure ulcer of sacral region, stage 4 PLAN: Plan She is tolerating and benefiting from hyperbaric oxygen therapy which will be continued per the patient's medical plan.
--- NOTE | 2023-04-07 13:32 | PCM.HBO.PN ---
History of Present Illness Date of Service: 04/07/23 Chief Complaint: Sacral pressure sore, Stage IV. History of Wound: Surgery 12/18/22 - Excision sacral pressure sore, Stage IV, with partial ostectomy for osteomyelitis. Wound care - VAC. Operative Culture - Corynebacterium striatum in the soft tissue and Kocuria kristinae in the bone. Was treated perioperatively with Augmentin and Flagyl for a preop culture positive for Enterococcus faecalis and Anaerobes. Kocuria kristinae in the bone is positive for osteomyelitis. It is significant and should be treated since it didn't show up in the soft tissue culture. She was placed on Augmentin and has finished them. Pathology - Negative for acute osteomyelitis. Chronic reparative and reactive change. Prealbumin from 10/30/22 was 20.1. Encourage nutritional supplementation with protein to help the healing process. MRI Pelvis from 08/21/22 - 2.8 cm decubitus ulcer at the base of the coccyx without discrete evidence of osteomyelitis. At her Wound Center visit on 02/10/23, she had urinary symptoms. A Urinalysis was done which did not report any WBC, and no Bacteria reported. The Leukocyte Esterase was 500. She was started on Cipro and has finished them. A Urine Culture showed Klebsiella pneumoniae. It is sensitive to Cipro. Today her urinary symptoms have resolved. Last 2021 she had diagnosis of osteomyelitis. She was placed on IV antibiotics per Infectious Diseases for 6 weeks until January,. This is important because it establishes a timeline for chronic refractory osteomyelitis. 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 Hyperbaric oxygen therapy was administered as per the facility's protocol.? Hyperbaric oxygen therapy was administered at 2.0 LIONEL in 100% oxygen for 90 minutes without air breaks.? The patient tolerated hyperbaric oxygen therapy well, without complications or complaints. Upon emergence of the hyperbaric chamber, the patient's vital signs remained stable.? She was discharged in good condition. Objective Data Objective Data Vital Signs: Vital Signs Temp Pulse Resp BP 97.4 F L 81 18 109/71 04/03/23 13:12 04/04/23 10:24 04/04/23 10:24 04/04/23 10:24 Weight: 145 lb 9.6 oz Body Mass Index (BMI) 22.8 Exam Physical Exam Const alert, oriented x3 and no apparent distress HEENT TM's normal bilaterally Chest inspection of chest normal Resp normal respiratory effort Auscultation: clear to auscultation bilaterally Cardio regular rate and regular rhythm Psych mental status grossly normal, thought process normal, cooperative, affect normal and speech normal Assessment/Plan Assessment/Plan (1) Osteomyelitis: CODE(S): M86.9 - Osteomyelitis, unspecified QUALIFIERS: Osteomyelitis type: other chronic Osteomyelitis location: other site Qualified Code(s): M86.68 - Other chronic osteomyelitis, other site (2) Sacral decubitus ulcer, stage IV: CODE(S): L89.154 - Pressure ulcer of sacral region, stage 4 PLAN: Plan She is tolerating and benefiting from hyperbaric oxygen therapy which will be continued per the patient's medical plan.
[2023-04-07 15:33] VITALS: BP 112/60; BP 117/73; PULSE 104; PULSE 67; RESP 18
--- NOTE | 2023-04-08 11:44 | PCM.HBO.PN ---
History of Present Illness Date of Service: 04/08/23 Chief Complaint: Sacral pressure sore, Stage IV. History of Wound: Surgery 12/18/22 - Excision sacral pressure sore, Stage IV, with partial ostectomy for osteomyelitis. Wound care - VAC. Operative Culture - Corynebacterium striatum in the soft tissue and Kocuria kristinae in the bone. Was treated perioperatively with Augmentin and Flagyl for a preop culture positive for Enterococcus faecalis and Anaerobes. Kocuria kristinae in the bone is positive for osteomyelitis. It is significant and should be treated since it didn't show up in the soft tissue culture. She was placed on Augmentin and has finished them. Pathology - Negative for acute osteomyelitis. Chronic reparative and reactive change. Prealbumin from 10/30/22 was 20.1. Encourage nutritional supplementation with protein to help the healing process. MRI Pelvis from 08/21/22 - 2.8 cm decubitus ulcer at the base of the coccyx without discrete evidence of osteomyelitis. At her Wound Center visit on 02/10/23, she had urinary symptoms. A Urinalysis was done which did not report any WBC, and no Bacteria reported. The Leukocyte Esterase was 500. She was started on Cipro and has finished them. A Urine Culture showed Klebsiella pneumoniae. It is sensitive to Cipro. Today her urinary symptoms have resolved. Last 2021 she had diagnosis of osteomyelitis. She was placed on IV antibiotics per Infectious Diseases for 6 weeks until January,. This is important because it establishes a timeline for chronic refractory osteomyelitis. 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 Hyperbaric oxygen therapy was administered as per the facility's protocol.? Hyperbaric oxygen therapy was administered at 2.0 LIONEL in 100% oxygen for 90 minutes without air breaks.? The patient tolerated hyperbaric oxygen therapy well, without complications or complaints. Upon emergence of the hyperbaric chamber, the patient's vital signs remained stable.? She was discharged in good condition. Objective Data Objective Data Vital Signs: Vital Signs Temp Pulse Resp BP 97.4 F L 104 H 18 117/73 04/03/23 13:12 04/07/23 15:33 04/07/23 15:33 04/07/23 15:33 Weight: 145 lb 9.6 oz Body Mass Index (BMI) 22.8 Exam Physical Exam Const alert, oriented x3 and no apparent distress HEENT TM's normal bilaterally Chest inspection of chest normal Resp normal respiratory effort Auscultation: clear to auscultation bilaterally Cardio regular rate and regular rhythm Psych mental status grossly normal, thought process normal, cooperative, affect normal and speech normal
[2023-04-08 13:15] VITALS: BP 113/68; BP 114/69; PULSE 70; PULSE 84; RESP 16; TEMP 36.3; TEMP 36.8
--- NOTE | 2023-04-09 10:43 | PCM.HBO.PN ---
History of Present Illness Date of Service: 04/09/23 Chief Complaint: Sacral pressure sore, Stage IV. History of Wound: Surgery 12/18/22 - Excision sacral pressure sore, Stage IV, with partial ostectomy for osteomyelitis. Wound care - VAC. Operative Culture - Corynebacterium striatum in the soft tissue and Kocuria kristinae in the bone. Was treated perioperatively with Augmentin and Flagyl for a preop culture positive for Enterococcus faecalis and Anaerobes. Kocuria kristinae in the bone is positive for osteomyelitis. It is significant and should be treated since it didn't show up in the soft tissue culture. She was placed on Augmentin and has finished them. Pathology - Negative for acute osteomyelitis. Chronic reparative and reactive change. Prealbumin from 10/30/22 was 20.1. Encourage nutritional supplementation with protein to help the healing process. MRI Pelvis from 08/21/22 - 2.8 cm decubitus ulcer at the base of the coccyx without discrete evidence of osteomyelitis. At her Wound Center visit on 02/10/23, she had urinary symptoms. A Urinalysis was done which did not report any WBC, and no Bacteria reported. The Leukocyte Esterase was 500. She was started on Cipro and has finished them. A Urine Culture showed Klebsiella pneumoniae. It is sensitive to Cipro. Today her urinary symptoms have resolved. Last 2021 she had diagnosis of osteomyelitis. She was placed on IV antibiotics per Infectious Diseases for 6 weeks until January,. This is important because it establishes a timeline for chronic refractory osteomyelitis. 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 Hyperbaric oxygen therapy was administered as per the facility's protocol.? Hyperbaric oxygen therapy was administered at 2.0 LIONEL in 100% oxygen for 90 minutes without air breaks.? The patient tolerated hyperbaric oxygen therapy well, without complications or complaints. Upon emergence of the hyperbaric chamber, the patient's vital signs remained stable.? She was discharged in good condition. Objective Data Objective Data Vital Signs: Vital Signs Temp Pulse Resp BP 98.2 F 84 16 114/69 04/08/23 13:15 04/08/23 13:15 04/08/23 13:15 04/08/23 13:15 Weight: 145 lb 9.6 oz Body Mass Index (BMI) 22.8 Exam Physical Exam Const alert, oriented x3 and no apparent distress HEENT TM's normal bilaterally Chest inspection of chest normal Resp normal respiratory effort Auscultation: clear to auscultation bilaterally Cardio regular rate and regular rhythm Psych mental status grossly normal, thought process normal, cooperative, affect normal and speech normal Nursing Assessment and Debridement Post-Debridement Measurements and Additional Note: Post-Debridement Measurements/Treatment WC - Nurse 3 - General Ulcer D/C NN Start: 03/26/23 15:26 Freq: Status: Active Protocol: Activity Type Activity Date Activity User E-sign Co-sign Detail Recorded Client Recorded Date Recorded By Document 04/08/23 13:15 Desktop 04/08/23 13:18 04/08/23 13:15 Pain Scale: 0-10 Numeric Is Patient Pain Free? Yes WC - Visit Discharge Discharge Condition Stable Ambulatory Status Wheelchair Transportation Private Auto Medication Reconcilliation completed & No provided to patient/care provider Clinical Summary of Care Provided No Notes: Phyllis Hull WIND ENERGY MECHANIC is the covering clinician for this treatment. Assessment/Plan Assessment/Plan (1) Osteomyelitis: CODE(S): M86.9 - Osteomyelitis, unspecified QUALIFIERS: Osteomyelitis type: other chronic Osteomyelitis location: other site Qualified Code(s): M86.68 - Other chronic osteomyelitis, other site (2) Sacral decubitus ulcer, stage IV: CODE(S): L89.154 - Pressure ulcer of sacral region, stage 4 PLAN: Plan She is tolerating and benefiting from hyperbaric oxygen therapy which will be continued per the patient's medical plan.
[2023-04-09 13:43] VITALS: BP 109/63; BP 96/65; PULSE 71; PULSE 81; RESP 18
[2023-04-14 15:41] VITALS: BP 118/64; PULSE 91; TEMP 36.9; BMI 22.8
--- NOTE | 2023-04-14 16:43 | PN.PCM_ITS ---
History of Present Illness Date of Service: 04/14/23 Chief Complaint: Sacral pressure sore, Stage IV. History of Wound: Surgery 12/18/22 - Excision sacral pressure sore, Stage IV, with partial ostectomy for osteomyelitis. Wound care - VAC. Operative Culture - Corynebacterium striatum in the soft tissue and Kocuria kristinae in the bone. Was treated perioperatively with Augmentin and Flagyl for a preop culture positive for Enterococcus faecalis and Anaerobes. Kocuria kristinae in the bone is positive for osteomyelitis. It is significant and should be treated since it didn't show up in the soft tissue culture. She was placed on Augmentin and has finished them. Pathology - Negative for acute osteomyelitis. Chronic reparative and reactive change. Prealbumin from 10/30/22 was 20.1. Encourage nutritional supplementation with protein to help the healing process. MRI Pelvis from 08/21/22 - 2.8 cm decubitus ulcer at the base of the coccyx without discrete evidence of osteomyelitis. At her Wound Center visit on 02/10/23, she had urinary symptoms. A Urinalysis was done which did not report any WBC, and no Bacteria reported. The Leukocyte Esterase was 500. She was started on Cipro and has finished them. A Urine Culture showed Klebsiella pneumoniae. It is sensitive to Cipro. Today her urinary symptoms have resolved. Last 2021 she had diagnosis of osteomyelitis. She was placed on IV antibiotics per Infectious Diseases for 6 weeks until January,. This is important because it establishes a timeline for chronic refractory osteomyelitis. Progress of Wound: She has tolerated HBO. She would benefit from further treatments but she is changing insurances and is waiting for approval. Her ulcer is smaller. She has a tunnel at 12 o'clock. The ulcer goes into the muscle. Bone is covered. Objective Data Objective Data Vital Signs: Vital Signs Temp Pulse Resp BP O2 Del Method 98.5 F 91 18 118/64 Room Air 04/14/23 15:41 04/14/23 15:41 04/09/23 13:43 04/14/23 15:41 04/14/23 15:41 Oxygen Delivery Method Room Air Weight: 145 lb 9.6 oz Body Mass Index (BMI) 22.8 Charges/Coding Procedures Integumentary [id number]: [id number] Tran musc/fascia 20 sq cm/< Debridement Note Debridement Note Wound debrided: #1 Sacral area. Laterality: Not Applicable Wound Grade/Stage: IV. Type of Debridement: Excisional debridement Anesthesia Used: 4% Lidocaine Solution and 5% Lidocaine Gel Depth: Down to and including healthy tissue, in the subcutaneous layer, to muscle and to bone (bone is palpable yet covered with granulation tissue. It was not debrided.) Percentage of wound debrided: 100 Instrument Used: 7mm curette Tissue Removed: Subcutaneous tissue and muscle. Bone is palpable but covered by tissue. Severity: Fat Layer Exposed (muscle is exposed. bone is palpable yet not exposed. It was not debrided.) Amount of bleeding with debridement: Mild Bleeding Controlled with: Pressure and Compression and gauze Patient tolerated procedure: Patient tolerated procedure well Post-Debridement Measurements and Additional Note: Post-Debridement Measurements/Treatment - Nurse 1 - General Ulcer Assessment Start: 03/26/23 15:26 Freq: Status: Active Protocol: .LOWEXKaushik Activity Type Activity Date Activity User E-sign Co-sign Detail Recorded Client Recorded Date Recorded By Document 04/14/23 15:41 Desktop 04/14/23 15:47 04/14/23 15:41 - Today's Visit Information Type of service Follow-up Visit (Physician/INTERNATIONAL PROJECT MANAGER ) Arrival Mode Wheelchair Transfer Assistance Transfer Board Patient Identification Verified (Name & Yes ) Patient Requires Transmission-Based No Precautions Safety Precautions Fall Prevention Height and Weight Body Mass Index (BMI) 22.8 BMI Classification Normal Vital Signs Temperature (97.8 F-99.1 F) 98.5 F Temperature Source Temporal Pulse Rate (60-100) 91 Pulse Location Monitor Oxygen Delivery Method Room Air Blood Pressure (90/60-120/80) 118/64 Blood Pressure Mean (mm Hg) 82 Source Monitor Position Sitting Blood Pressure Location Right Arm History Since Last Visit- (Skip if this is Patient's initial visit) Have you changed medications since your No last visit? Any new allergies or adverse reactions No Had a fall/change in ADL's that may No increase risk of falls Signs or symptoms of abuse and/or No neglect since last visit Have you been in the hospital since your No last visit? Has dressing in place as prescribed Yes Has compression in place as prescribed N/A Has offloadiing in place as prescribed N/A Experienced any changes in pain level or No management Pain Scale: 0-10 Numeric Is Patient Pain Free? Yes WC - Nurse 1 - General Ulcer Measurement Start: 03/26/23 15:26 Freq: Status: Active Protocol: Activity Type Activity Date Activity User E-sign Co-sign Detail Recorded Client Recorded Date Recorded By Document 04/14/23 15:41 Desktop 04/14/23 15:47 04/14/23 15:41 Wound Center Nurse 1 #1- sacral -Combined with other wound No -Current Size (cm) - Length 3.0 -Current Size (cm) - Width 0.5 -Current Size (cm) - Depth 4.0 -Total Square Cm 1.50 -Photo Taken No -Epithelialization Small 1-33% -Tunneling No -Undermining/Tunneling No -Circular Undermining No -Exudate Amt Medium -Exudate Type Serosanguineous -Wound Margin Distinct, Outline Attached -Granulation Amt Medium (34-66%) -Granulation Quality Red -Slough/Fibrin No -Texture (Neda-wound Skin Appearance) Assessed -Moisture (Neda-wound Skin Appearance) Assessed -Color (Neda-wound Skin Appearance) Assessed -Temperature (Neda-wound Skin No Abnormality Appearance) (Pt Warm) -Tenderness on Palpation (Neda-wound No Skin Appearance) -Ulcer Cleansing Soap and Water -Foul Odor after Cleansing No Lower Limb Edema Present No WC - Nurse 2 - General Ulcer CM Notes Start: 03/26/23 15:26 Freq: Status: Active Protocol: Activity Type Activity Date Activity User E-sign Co-sign Detail Recorded Client Recorded Date Recorded By Document 04/14/23 16:18 Laptop 04/14/23 16:21 04/14/23 16:18 Wound Center Nurse 2 #1- sacral -Time 16:20 -Correct Patient Yes -Correct Side, Site, Position Yes -Correct Procedure Yes -Procedure Performed Yes -Type of Procedure Debridement -Clinical Debridement Muscle / Fascia -Tissue Removed Muscle,Fascia -Post Debridement (cm) - Length 3.5 -Post Debridement (cm) - Width 0.8 -Post Debridement (cm) - Depth 4.0 -Total Square (Post) (cm) 2.80 -Area of Debridement (cm) - Length 3.5 -Area of Debridement (cm) - Width 0.8 -Total Square (Area) (cm) 2.80 -Tunneling Yes -Tunneling Position (O'clock) 12 -Tunneling Distance (cm) 4.4 -Undermining/Tunneling No -Circular Undermining No -Wound/Ulcer Outcome Not Healed -Ulcer Cleansing Rinsed/ Irrigated with Saline -Foul Odor after Cleansing No -Bioengineered Tissue No -Bleeding Controlled with Pressure -Treatment Response Procedure Tolerated Well -Offloading No -Debridement - Muscle / Fascia, 1st Yes 20sq cm Pain Scale: 0-10 Numeric Is Patient Pain Free? Yes - Nurse 3 - General Ulcer D/C NN Start: 03/26/23 15:26 Freq: Status: Active Protocol: Activity Type Activity Date Activity User E-sign Co-sign Detail Recorded Client Recorded Date Recorded By Document 03/28/23 10:23 Laptop 03/28/23 10:26 Document 04/08/23 13:15 Desktop 04/08/23 13:18 03/28/23 04/08/23 10:23 13:15 Pain Scale: 0-10 Numeric Is Patient Pain Free? Yes Yes - Visit Discharge Discharge Condition Stable Stable Ambulatory Status Wheelchair Wheelchair Transportation Private Auto Private Auto Medication Reconcilliation completed & No No provided to patient/care provider Clinical Summary of Care Provided No No Notes: Phyllis Hull SCHOOL OPERATIONS MANAGER is the covering clinician for this treatment. Assessment/Plan Assessment/Plan (1) Osteomyelitis: CODE(S): M86.9 - Osteomyelitis, unspecified QUALIFIERS: Osteomyelitis type: other chronic Osteomyelitis location: other site Qualified Code(s): M86.68 - Other chronic osteomyelitis, other site (2) Sacral decubitus ulcer, stage IV: CODE(S): L89.154 - Pressure ulcer of sacral region, stage 4 (3) Immobility syndrome (paraplegic): CODE(S): M62.3 - Immobility syndrome (paraplegic) (4) Multiple sclerosis: CODE(S): G35 - Multiple sclerosis (5) Long-term current use of rituximab: CODE(S): Z79.620 - terminal operations supervisor (current) use of immunosuppressive biologic (6) Former smoker: CODE(S): Z87.891 - Personal history of nicotine dependence (7) UTI (urinary tract infection): CODE(S): N39.0 - Urinary tract infection, site not specified PLAN: Plan Continue the VAC at 150 mmHg. Make sure to get the foam into the base of the tunnel at 12 o'clock. Kocuria kristinae in the bone is positive for osteomyelitis. It is significant and should be treated since it didn't show up in the soft tissue culture. She was placed on Augmentin per Infectious Diseases recommendation. She has finished the Augmentin. On 10/30/22, it was 20.1. Encourage nutritional supplementation with protein to help the healing process. Last 2021 she had diagnosis of osteomyelitis. She was placed on IV antibiotics per Infectious Diseases for 6 weeks until January,. This is important because it establishes a timeline for chronic refractory osteomyelitis. She is a candidate for HBO Treatments. We have received insurance approval for the HBO treatments. Usual amount is 40-60 treatments. She had a CXR on 01/06/23. It showed no evidence of acute cardiopulmonary process. No evidence of congestive heart failure. No evidence pneumothorax. No focal infiltrates, consolidations, or effusions. I looked in her ears with an otoscope at her visit on 01/06/23. She had normal tympanic membranes. No bleeding was seen in the tympanic membranes. No fluid was seen behind the tympanic membranes. She has started the HBO treatments and is tolerating them thus far. She has had 44 treatment. She is changing insurance companies and is waiting to hear if she is approved for further treatments. The HBO treatments has shown improvement in her ulcer and it has been noted with granulation tissue over the bone. She had a Urinalysis on 02/10/23. It showed Leukocyte Esterase. Urine Culture showed Klebsiella pneumoniae. She was treated with Cipro. Today her symptoms have resolved. Followup 2 weeks.
== END 2023-04-24 23:59 | disposition home or self-care (01) ==
LOC: WC 15:30
PROVIDERS: PCP Family Medicine; Referring Provider Nurse Practitioner; Visit Provider Nurse Practitioner Family
DX: L89.154 Pressure ulcer of sacral region, stage 4 (principal); G35 Multiple sclerosis; M86.68 Other chronic osteomyelitis, other site; M62.3 Immobility syndrome (paraplegic); Z79.620 Long term (current) use of immunosuppressive biologic; Z87.891 Personal history of nicotine dependence; Z87.440 Personal history of urinary (tract) infections
CPT/HCPCS: 11043; 99183; G0277

== ENCOUNTER 2023-05-12 14:45 | Outpatient (RCR) | payer MEDICARE, SELFPAY ==
[2023-04-25 00:48] VITALS: BP 118/64; PULSE 91; RESP 18; TEMP 36.9; BMI 22.8
[2023-05-05 15:34] VITALS: BP 115/66; PULSE 77; RESP 16; TEMP 37.2; BMI 22.8
--- NOTE | 2023-05-05 16:49 | PCM.WC.PN ---
History of Present Illness Date of Service: 05/05/23 Chief Complaint: Sacral pressure sore, Stage IV. History of Wound: Surgery 12/18/22 - Excision sacral pressure sore, Stage IV, with partial ostectomy for osteomyelitis. Wound care - VAC. Operative Culture - Corynebacterium striatum in the soft tissue and Kocuria kristinae in the bone. Was treated perioperatively with Augmentin and Flagyl for a preop culture positive for Enterococcus faecalis and Anaerobes. Kocuria kristinae in the bone is positive for osteomyelitis. It is significant and should be treated since it didn't show up in the soft tissue culture. She was placed on Augmentin and has finished them. Pathology - Negative for acute osteomyelitis. Chronic reparative and reactive change. Prealbumin from 10/30/22 was 20.1. Encourage nutritional supplementation with protein to help the healing process. MRI Pelvis from 08/21/22 - 2.8 cm decubitus ulcer at the base of the coccyx without discrete evidence of osteomyelitis. At her Wound Center visit on 02/10/23, she had urinary symptoms. A Urinalysis was done which did not report any WBC, and no Bacteria reported. The Leukocyte Esterase was 500. She was started on Cipro and has finished them. A Urine Culture showed Klebsiella pneumoniae. It is sensitive to Cipro. Today her urinary symptoms have resolved. Last 2021 she had diagnosis of osteomyelitis. She was placed on IV antibiotics per Infectious Diseases for 6 weeks until January,. This is important because it establishes a timeline for chronic refractory osteomyelitis. Progress of Wound: Her ulcer opening is smaller. She has a tunnel at 12 o'clock. The ulcer goes into the muscle. Bone is covered. With the ulcer opening being smaller, it is becoming difficult to pack. Objective Data Objective Data Vital Signs: Vital Signs Temp Pulse Resp BP O2 Del Method 98.9 F 77 16 115/66 Room Air 05/05/23 15:34 05/05/23 15:34 05/05/23 15:34 05/05/23 15:34 05/05/23 15:34 Oxygen Delivery Method Room Air Weight: 145 lb 9.6 oz Body Mass Index (BMI) 22.8 Charges/Coding Procedures Integumentary 111xxx-113xx: 58632 Tran musc/fascia 20 sq cm/< Debridement Note Debridement Note Wound debrided: #1 Sacral area. Laterality: Not Applicable Wound Grade/Stage: IV. Type of Debridement: Excisional debridement Anesthesia Used: 4% Lidocaine Solution and 5% Lidocaine Gel Depth: Down to and including healthy tissue, in the subcutaneous layer, to muscle and to bone (bone is palpable yet covered with granulation tissue. It was not debrided.) Percentage of wound debrided: 100 Instrument Used: 7mm curette Tissue Removed: Subcutaneous tissue and muscle. Bone is palpable but covered by tissue. Severity: Fat Layer Exposed (muscle is exposed. bone is palpable yet not exposed. It was not debrided.) Amount of bleeding with debridement: Mild Bleeding Controlled with: Pressure and Compression and gauze Patient tolerated procedure: Patient tolerated procedure well Post-Debridement Measurements and Additional Note: Post-Debridement Measurements/Treatment - Nurse 1 - General Ulcer Assessment Start: 05/05/23 15:34 Freq: Status: Active Protocol: .LOWEXT Activity Type Activity Date Activity User E-sign Co-sign Detail Recorded Client Recorded Date Recorded By Document 05/05/23 15:34 [facility] Desktop 05/05/23 15:36 [facility] 05/05/23 15:34 - Today's Visit Information Type of service Follow-up Visit (Physician/VOLTAGE REGULATOR ASSEMBLER ) Arrival Mode Wheelchair Transfer Assistance None Patient Identification Verified (Name & Yes ) Patient Requires Transmission-Based No Precautions Height and Weight Body Mass Index (BMI) 22.8 BMI Classification Normal Vital Signs Temperature (97.8 F-99.1 F) 98.9 F Temperature Source Temporal Pulse Rate (60-100) 77 Pulse Location Monitor Respiratory Rate (12-18) 16 Respiratory rate source Observation Oxygen Delivery Method Room Air Blood Pressure (90/60-120/80) 115/66 Blood Pressure Mean (mm Hg) 82 Source Monitor Position Sitting Blood Pressure Location Right Arm History Since Last Visit- (Skip if this is Patient's initial visit) Have you changed medications since your No last visit? Any new allergies or adverse reactions No Had a fall/change in ADL's that may No increase risk of falls Signs or symptoms of abuse and/or No neglect since last visit Have you been in the hospital since your No last visit? Has dressing in place as prescribed Yes Has compression in place as prescribed N/A Has offloadiing in place as prescribed N/A Experienced any changes in pain level or No management Left Footwear Regular Shoe Right Footwear Regular Shoe Pain Scale: 0-10 Numeric Is Patient Pain Free? Yes WC - Nurse 1 - General Ulcer Measurement Start: 05/05/23 15:34 Freq: Status: Active Protocol: Activity Type Activity Date Activity User E-sign Co-sign Detail Recorded Client Recorded Date Recorded By Document 05/05/23 15:34 [facility] Desktop 05/05/23 15:36 [facility] 05/05/23 15:34 Wound Center Nurse 1 #1- sacral -Combined with other wound No -Current Size (cm) - Length 1.5 -Current Size (cm) - Width 0.4 -Current Size (cm) - Depth 2.6 -Total Square Cm 0.60 -Date of Last Picture (Recall this 05/05/23 field) -Photo Taken Yes -Tunneling No -Undermining/Tunneling No -Circular Undermining No -Exudate Amt Medium -Exudate Type Serosanguineous -Wound Margin Distinct, Outline Attached -Granulation Amt Large (67-100%) -Granulation Quality Red -Slough/Fibrin No -Necrosis Amt None Present (0 %) -Texture (Neda-wound Skin Appearance) Assessed, Scarring -Moisture (Neda-wound Skin Appearance) No Abnormality, Maceration -Color (Neda-wound Skin Appearance) Assessed -Temperature (Neda-wound Skin No Abnormality Appearance) (Pt Warm) -Tenderness on Palpation (Neda-wound No Skin Appearance) -Ulcer Cleansing Soap and Water -Foul Odor after Cleansing No WC - Nurse 2 - General Ulcer CM Notes Start: 05/05/23 15:34 Freq: Status: Active Protocol: Activity Type Activity Date Activity User E-sign Co-sign Detail Recorded Client Recorded Date Recorded By Document 05/05/23 15:44 Laptop 05/05/23 15:46 05/05/23 15:44 Wound Center Nurse 2 -Time 15:45 -Correct Patient Yes -Correct Side, Site, Position Yes -Correct Procedure Yes -Procedure Performed Yes -Type of Procedure Debridement -Clinical Debridement Muscle / Fascia -Tissue Removed Muscle,Fascia -Post Debridement (cm) - Length 2.0 -Post Debridement (cm) - Width 0.5 -Post Debridement (cm) - Depth 3.3 -Total Square (Post) (cm) 1.00 -Area of Debridement (cm) - Length 2.0 -Area of Debridement (cm) - Width 0.5 -Total Square (Area) (cm) 1.00 -Tunneling Yes -Tunneling Position (O'clock) 12 -Tunneling Distance (cm) 2.6 -Circular Undermining No -Wound/Ulcer Outcome Not Healed -Ulcer Cleansing Rinsed/ Irrigated with Saline -Foul Odor after Cleansing No -Bioengineered Tissue No -Bleeding Controlled with Pressure -Treatment Response Procedure Tolerated Well -Offloading No -Pressure Reduction Wheelchair cushion -Debridement - Muscle / Fascia, 1st Yes 20sq cm Pain Scale: 0-10 Numeric Is Patient Pain Free? Yes WC - Nurse 3 - General Ulcer D/C NN Start: 05/05/23 15:34 Freq: Status: Active Protocol: Activity Type Activity Date Activity User E-sign Co-sign Detail Recorded Client Recorded Date Recorded By Document 05/05/23 16:05 DL Desktop 05/05/23 16:07 DL 05/05/23 16:05 Wound Care Center Nurse 3 #1- sacral -Ulcer Cleansing Rinsed/ Irrigated with Saline -Foul Odor after Cleansing No -Primary Dressing Applied Hysept ($) -Other Dressing dakins -Primary Dressing Covered/Secured with Dry Gauze, Secured with Tape -Other Covering ABD Treatment Response Procedure Tolerated Well Pain Scale: 0-10 Numeric Is Patient Pain Free? Yes - Visit Discharge Discharge Condition Stable Ambulatory Status Walker Transportation Private Auto Assessment/Plan Assessment/Plan (1) Osteomyelitis: CODE(S): M86.9 - Osteomyelitis, unspecified QUALIFIERS: Osteomyelitis type: other chronic Osteomyelitis location: other site Qualified Code(s): M86.68 - Other chronic osteomyelitis, other site (2) Sacral decubitus ulcer, stage IV: CODE(S): L89.154 - Pressure ulcer of sacral region, stage 4 (3) Immobility syndrome (paraplegic): CODE(S): M62.3 - Immobility syndrome (paraplegic) (4) Multiple sclerosis: CODE(S): G35 - Multiple sclerosis (5) Long-term current use of rituximab: CODE(S): Z79.620 - jail (current) use of immunosuppressive biologic (6) Former smoker: CODE(S): Z87.891 - Personal history of nicotine dependence (7) UTI (urinary tract infection): CODE(S): N39.0 - Urinary tract infection, site not specified PLAN: Plan Wound care - Take a wound VAC holiday. Start packing wound with Dakin's 0.25% moistened gauze 1-2 times per day and as needed. She states she has too much drainage to be able to change the dressing only once per day. Kocuria kristinae in the bone is positive for osteomyelitis. It is significant and should be treated since it didn't show up in the soft tissue culture. She was placed on Augmentin per Infectious Diseases recommendation. She has finished the Augmentin. On 10/30/22, it was 20.1. Encourage nutritional supplementation with protein to help the healing process. Last 2021 she had diagnosis of osteomyelitis. She was placed on IV antibiotics per Infectious Diseases for 6 weeks until January,. This is important because it establishes a timeline for chronic refractory osteomyelitis. She is a candidate for HBO Treatments. We have received insurance approval for the HBO treatments, which she completed. She had 44 treatments. She had a CXR on 01/06/23. It showed no evidence of acute cardiopulmonary process. No evidence of congestive heart failure. No evidence pneumothorax. No focal infiltrates, consolidations, or effusions. I looked in her ears with an otoscope at her visit on 01/06/23. She had normal tympanic membranes. No bleeding was seen in the tympanic membranes. No fluid was seen behind the tympanic membranes. She would benefit from further treatments but she is changing insurance companies and is waiting to hear if she is approved for further treatments. The HBO treatments has shown improvement in her ulcer and it has been noted with granulation tissue over the bone. She had a Urinalysis on 02/10/23. It showed Leukocyte Esterase. Urine Culture showed Klebsiella pneumoniae. She was treated with Cipro. Today her symptoms have resolved. Followup 1 week.
[2023-05-12 14:52] VITALS: BP 124/55; PULSE 84; TEMP 36.4; BMI 22.8
--- NOTE | 2023-05-12 16:31 | PN.PCM_ITS ---
History of Present Illness Date of Service: 05/12/23 Chief Complaint: Sacral pressure sore, Stage IV. History of Wound: Surgery 12/18/22 - Excision sacral pressure sore, Stage IV, with partial ostectomy for osteomyelitis. Wound care - VAC. Operative Culture - Corynebacterium striatum in the soft tissue and Kocuria kristinae in the bone. Was treated perioperatively with Augmentin and Flagyl for a preop culture positive for Enterococcus faecalis and Anaerobes. Kocuria kristinae in the bone is positive for osteomyelitis. It is significant and should be treated since it didn't show up in the soft tissue culture. She was placed on Augmentin and has finished them. Pathology - Negative for acute osteomyelitis. Chronic reparative and reactive change. Prealbumin from 10/30/22 was 20.1. Encourage nutritional supplementation with protein to help the healing process. MRI Pelvis from 08/21/22 - 2.8 cm decubitus ulcer at the base of the coccyx without discrete evidence of osteomyelitis. At her Wound Center visit on 02/10/23, she had urinary symptoms. A Urinalysis was done which did not report any WBC, and no Bacteria reported. The Leukocyte Esterase was 500. She was started on Cipro and has finished them. A Urine Culture showed Klebsiella pneumoniae. It is sensitive to Cipro. Today her urinary symptoms have resolved. Last 2021 she had diagnosis of osteomyelitis. She was placed on IV antibiotics per Infectious Diseases for 6 weeks until January,. This is important because it establishes a timeline for chronic refractory osteomyelitis. Progress of Wound: Her ulcer opening is smaller. The ulcer goes into the muscle. Bone is covered. With the ulcer opening being smaller, it is becoming difficult to pack. Today she is complaining of not feeling well. She has had chills. She is concerned that she either has a UTI or a wound infection. A wound culture was obtained today.? A positive culture will necessitate antibiotic therapy. Objective Data Objective Data Vital Signs: Vital Signs Temp Pulse Resp BP O2 Del Method 97.5 F L 84 16 124/55 H Room Air 05/12/23 14:52 05/12/23 14:52 05/05/23 15:34 05/12/23 14:52 05/05/23 15:34 Oxygen Delivery Method Room Air Weight: 145 lb 9.6 oz Body Mass Index (BMI) 22.8 Charges/Coding Procedures Integumentary 111xxx-113xx: 08154 Tran musc/fascia 20 sq cm/< Debridement Note Debridement Note Wound debrided: #1 Sacral area. Laterality: Not Applicable Wound Grade/Stage: IV Type of Debridement: Excisional debridement Anesthesia Used: 4% Lidocaine Solution and 5% Lidocaine Gel Depth: Down to and including healthy tissue, in the subcutaneous layer, to mus qamar and to bone (bone is palpable yet covered with granulation tissue. It was not debrided.) Percentage of wound debrided: 100 Instrument Used: 7mm curette Tissue Removed: Subcutaneous tissue and muscle. Bone is palpable but covered by tissue. Severity: Fat Layer Exposed (muscle is exposed. bone is palpable yet not exposed. It was not debrided.) Amount of bleeding with debridement: Mild Bleeding Controlled with: Pressure and Compression and gauze Patient tolerated procedure: Patient tolerated procedure well Post-Debridement Measurements and Additional Note: Post-Debridement Measurements/Treatment - Nurse 1 - General Ulcer Assessment Start: 05/05/23 15:34 Freq: Status: Active Protocol: BENIGNO Activity Type Activity Date Activity User E-sign Co-sign Detail Recorded Client Recorded Date Recorded By Document 05/05/23 15:34 [employer] Desktop 05/05/23 15:36 [employer] Document 05/12/23 14:52 [employer] Desktop 05/12/23 15:01 KW 05/05/23 05/12/23 15:34 14:52 - Today's Visit Information Type of service Follow-up Visit Follow-up Visit (Physician/LIFE SCIENCES TEACHER (Physician/LIFE SCIENCES TEACHER ) ) Arrival Mode Wheelchair Wheelchair Transfer Assistance None None Patient Identification Verified (Name & Yes Yes ) Patient Requires Transmission-Based No No Precautions Height and Weight Body Mass Index (BMI) 22.8 22.8 BMI Classification Normal Normal Vital Signs Temperature (97.8 F-99.1 F) 98.9 F 97.5 F L Temperature Source Temporal Temporal Pulse Rate (60-100) 77 84 Pulse Location Monitor Monitor Respiratory Rate (12-18) 16 Respiratory rate source Observation Oxygen Delivery Method Room Air Blood Pressure (90/60-120/80) 115/66 124/55 H Blood Pressure Mean (mm Hg) 82 78 Source Monitor Monitor Position Sitting Semi-Fowlers Blood Pressure Location Right Arm Left Arm History Since Last Visit- (Skip if this is Patient's initial visit) Have you changed medications since your No No last visit? Any new allergies or adverse reactions No No Had a fall/change in ADL's that may No No increase risk of falls Signs or symptoms of abuse and/or No No neglect since last visit Have you been in the hospital since your No No last visit? Has dressing in place as prescribed Yes Yes Has compression in place as prescribed N/A N/A Has offloadiing in place as prescribed N/A N/A Experienced any changes in pain level or No No management Left Footwear Regular Shoe Regular Shoe Right Footwear Regular Shoe Regular Shoe Pain Scale: 0-10 Numeric Is Patient Pain Free? Yes Yes WC - Nurse 1 - General Ulcer Measurement Start: 05/05/23 15:34 Freq: Status: Active Protocol: Activity Type Activity Date Activity User E-sign Co-sign Detail Recorded Client Recorded Date Recorded By Document 05/05/23 15:34 [employer] Desktop 05/05/23 15:36 [employer] Document 05/12/23 14:52 [employer] Desktop 05/12/23 15:01 KW 05/05/23 05/12/23 15:34 14:52 Wound Center Nurse 1 #1- sacral -Combined with other wound No -Current Size (cm) - Length 1.5 0.4 -Current Size (cm) - Width 0.4 1.5 -Current Size (cm) - Depth 2.6 3.6 -Total Square Cm 0.60 0.60 -Date of Last Picture (Recall this 05/05/23 field) -Photo Taken Yes -Tunneling No Yes -Tunneling Position (O'clock) 12 -Tunneling Distance (cm) 0.6 -Undermining/Tunneling No -Circular Undermining No -Exudate Amt Medium Medium -Exudate Type Serosanguineous Serosanguineous -Wound Margin Distinct, Distinct, Outline Outline Attached Attached -Granulation Amt Large (67-100%) Medium (34-66%) -Granulation Quality [place] -Slough/Fibrin No -Necrosis Amt None Present (0 Medium (34-66%) %) -Necrotic Tissue Type Adherent Slough -Texture (Neda-wound Skin Appearance) Assessed, Assessed Scarring -Moisture (Neda-wound Skin Appearance) No Abnormality, Assessed Maceration -Color (Neda-wound Skin Appearance) Assessed Assessed -Temperature (Neda-wound Skin No Abnormality No Abnormality Appearance) (Pt Warm) (Pt Warm) -Tenderness on Palpation (Neda-wound No Skin Appearance) -Ulcer Cleansing Soap and Water Rinsed/ Irrigated with Saline -Foul Odor after Cleansing No No WC - Nurse 2 - General Ulcer CM Notes Start: 05/05/23 15:34 Freq: Status: Active Protocol: Activity Type Activity Date Activity User E-sign Co-sign Detail Recorded Client Recorded Date Recorded By Document 05/05/23 15:44 Laptop 05/05/23 15:46 Document 05/12/23 15:31 Laptop 05/12/23 15:34 05/05/23 05/12/23 15:44 15:31 Wound Center Nurse 2 #1- sacral -Time 15:45 15:33 -Correct Patient Yes Yes -Correct Side, Site, Position Yes Yes -Correct Procedure Yes Yes -Procedure Performed Yes Yes -Type of Procedure Debridement Debridement -Clinical Debridement Muscle / Fascia Muscle / Fascia -Tissue Removed Muscle,Fascia Muscle,Fascia -Post Debridement (cm) - Length 2.0 2.0 -Post Debridement (cm) - Width 0.5 0.5 -Post Debridement (cm) - Depth 3.3 2.3 -Total Square (Post) (cm) 1.00 1.00 -Area of Debridement (cm) - Length 2.0 2.0 -Area of Debridement (cm) - Width 0.5 0.5 -Total Square (Area) (cm) 1.00 1.00 -Tunneling Yes Yes -Tunneling Position (O'clock) 12 12 -Tunneling Distance (cm) 2.6 4.4 -Undermining/Tunneling No -Circular Undermining No No -Wound/Ulcer Outcome Not Healed Not Healed -Ulcer Cleansing Rinsed/ Rinsed/ Irrigated with Irrigated with Saline Saline -Foul Odor after Cleansing No No -Bioengineered Tissue No No -Bleeding Controlled with Pressure Pressure -Treatment Response Procedure Procedure Tolerated Well Tolerated Well -Offloading No No -Pressure Reduction Wheelchair cushion -Debridement - Muscle / Fascia, 1st Yes Yes 20sq cm Pain Scale: 0-10 Numeric Is Patient Pain Free? Yes Yes WC - Nurse 3 - General Ulcer D/C NN Start: 05/05/23 15:34 Freq: Status: Active Protocol: Activity Type Activity Date Activity User E-sign Co-sign Detail Recorded Client Recorded Date Recorded By Document 05/05/23 16:05 DL Desktop 05/05/23 16:07 DL Document 05/12/23 15:43 KW Desktop 05/12/23 15:43 KW 05/05/23 05/12/23 16:05 15:43 Wound Care Center Nurse 3 #1- sacral -Ulcer Cleansing Rinsed/ Rinsed/ Irrigated with Irrigated with Saline Saline -Foul Odor after Cleansing No -Primary Dressing Applied Hysept ($) -Other Dressing dakins -Primary Dressing Covered/Secured with Dry Gauze, Dry Gauze, Secured with Secured with Tape Tape -Other Covering ABD Treatment Response Procedure Tolerated Well Pain Scale: 0-10 Numeric Is Patient Pain Free? Yes Yes WC - Visit Discharge Discharge Condition Stable Stable Ambulatory Status Walker Wheelchair Transportation Private Auto Private Auto Medication Reconcilliation completed & No provided to patient/care provider Clinical Summary of Care Provided Yes Assessment/Plan Assessment/Plan (1) Osteomyelitis: CODE(S): M86.9 - Osteomyelitis, unspecified QUALIFIERS: Osteomyelitis type: other chronic Osteomyelitis location: other site Qualified Code(s): M86.68 - Other chronic osteomyelitis, other site (2) Sacral decubitus ulcer, stage IV: CODE(S): L89.154 - Pressure ulcer of sacral region, stage 4 (3) Immobility syndrome (paraplegic): CODE(S): M62.3 - Immobility syndrome (paraplegic) (4) Multiple sclerosis: CODE(S): G35 - Multiple sclerosis (5) Long-term current use of rituximab: CODE(S): Z79.620 - [place] (current) use of immunosuppressive biologic (6) Former smoker: CODE(S): Z87.891 - Personal history of nicotine dependence (7) UTI (urinary tract infection): CODE(S): N39.0 - Urinary tract infection, site not specified PLAN: Plan Wound care - Hold wound VAC until the end of the week, will start on antibiotics while waiting for wound and urine culture results to come back. Pack wound with Dakin's 0.25% moistened gauze 1-2 times per day and as needed. She states she has too much drainage to be able to change the dressing only once per day. Kocuria kristinae in the bone is positive for osteomyelitis. It is significant and should be treated since it didn't show up in the soft tissue culture. She was placed on Augmentin per Infectious Diseases recommendation. She has finished the Augmentin. On 10/30/22, it was 20.1. Encourage nutritional supplementation with protein to help the healing process. Last 2021 she had diagnosis of osteomyelitis. She was placed on IV antibiotics per Infectious Diseases for 6 weeks until January,. This is important because it establishes a timeline for chronic refractory osteomyelitis. She is a candidate for HBO Treatments. We have received insurance approval for the HBO treatments, which she completed. She had 44 treatments. She had a CXR on 01/06/23. It showed no evidence of acute cardiopulmonary process. No evidence of congestive heart failure. No evidence pneumothorax. No focal infiltrates, consolidations, or effusions. I looked in her ears with an otoscope at her visit on 01/06/23. She had normal tympanic membranes. No bleeding was seen in the tympanic membranes. No fluid was seen behind the tympanic membranes. She would benefit from further treatments but she is changing insurance companies and is waiting to hear if she is approved for further treatments. The HBO treatments has shown improvement in her ulcer and it has been noted with granulation tissue over the bone. She had a Urinalysis on 02/10/23. It showed Leukocyte Esterase. Urine Culture showed Klebsiella pneumoniae. She was treated with Cipro. A wound culture and UA/C&S was obtained today.? She will be started on Augmentin. Depending on the results of the cultures, it may be necessary to change her antibiotics. Followup 2 weeks, due to the holidays. If symptoms worsen over the holidays, she was instructed to go to the ER or see her PCP.
[2023-05-12 16:38] LABS: Color, Urine Yellow (Yellow); Glucose, Dipstick Normal (Normal); Ketone-Dipstick Negative (Negative); Leukocyte Esterase-Dipstick Negative /ul (Negative); Nitrite-Dipstick Negative (Negative); Occult Blood-Urine Negative /ul (Negative); Protein-Dipstick Negative (Negative); Urine Bilirubin Dipstick Negative (Negative); Urine Clarity Clear (Clear); Urine Urobilinogen Normal (Normal)
== END 2023-05-25 23:59 | disposition home or self-care (01) ==
LOC: WC 14:45
PROVIDERS: PCP Family Medicine; Referring Provider Nurse Practitioner; Visit Provider Nurse Practitioner Family
DX: L89.154 Pressure ulcer of sacral region, stage 4 (principal); G35 Multiple sclerosis; M86.68 Other chronic osteomyelitis, other site; M62.3 Immobility syndrome (paraplegic); Z79.620 Long term (current) use of immunosuppressive biologic; N39.0 Urinary tract infection, site not specified; Z87.891 Personal history of nicotine dependence
CPT/HCPCS: 11043; 81002; 87070; 87075; 87077; 87086; 87205

== ENCOUNTER 2023-06-09 14:00 | Outpatient (RCR) | payer MEDICARE, SELFPAY ==
[2023-05-26 00:46] VITALS: BP 124/55; PULSE 84; RESP 16; TEMP 36.4; BMI 22.8
[2023-05-27 15:35] VITALS: BP 134/49; PULSE 85; RESP 20; TEMP 37.2; BMI 22.8
--- NOTE | 2023-05-27 16:10 | PN.PCM_ITS ---
History of Present Illness Date of Service: 05/27/23 Chief Complaint: Sacral pressure sore, Stage IV. History of Wound: Surgery 12/18/22 - Excision sacral pressure sore, Stage IV, with partial ostectomy for osteomyelitis. Wound care - VAC. Operative Culture - Corynebacterium striatum in the soft tissue and Kocuria kristinae in the bone. Was treated perioperatively with Augmentin and Flagyl for a preop culture positive for Enterococcus faecalis and Anaerobes. Kocuria kristinae in the bone is positive for osteomyelitis. It is significant and should be treated since it didn't show up in the soft tissue culture. She was placed on Augmentin and has finished them. Pathology - Negative for acute osteomyelitis. Chronic reparative and reactive change. Prealbumin from 10/30/22 was 20.1. Encourage nutritional supplementation with protein to help the healing process. MRI Pelvis from 08/21/22 - 2.8 cm decubitus ulcer at the base of the coccyx without discrete evidence of osteomyelitis. At her Wound Center visit on 02/10/23, she had urinary symptoms. A Urinalysis was done which did not report any WBC, and no Bacteria reported. The Leukocyte Esterase was 500. She was started on Cipro and has finished them. A Urine Culture showed Klebsiella pneumoniae. It is sensitive to Cipro. Today her urinary symptoms have resolved. Last 2021 she had diagnosis of osteomyelitis. She was placed on IV antibiotics per Infectious Diseases for 6 weeks until January,. This is important because it establishes a timeline for chronic refractory osteomyelitis. Progress of Wound: Her ulcer opening is smaller. The ulcer goes into the muscle. Bone is covered but palpable. With the ulcer opening being smaller, it is becoming difficult to pack. She is completing the Augmentin that she was prescribed for her positive anaerobic wound cultures. Objective Data Objective Data Vital Signs: Vital Signs Temp Pulse Resp BP 98.9 F 85 20 H 134/49 H 05/27/23 15:35 05/27/23 15:35 05/27/23 15:35 05/27/23 15:35 Weight: 145 lb 9.6 oz Body Mass Index (BMI) 22.8 Charges/Coding Procedures Integumentary 111xxx-113xx: [id number] Tran musc/fascia 20 sq cm/< Debridement Note Debridement Note Wound debrided: #1 Sacral area. Laterality: Not Applicable Wound Grade/Stage: IV Type of Debridement: Excisional debridement Anesthesia Used: 4% Lidocaine Solution and 5% Lidocaine Gel Depth: Down to and including healthy tissue, in the subcutaneous layer, to muscle and to bone (bone is palpable yet covered with granulation tissue. It was not debrided.) Percentage of wound debrided: 100 Instrument Used: 5mm curette Tissue Removed: Subcutaneous tissue and muscle. Bone is palpable but covered by tissue. Severity: Fat Layer Exposed (muscle is exposed. bone is palpable yet not exposed. It was not debrided.) Amount of bleeding with debridement: Mild Bleeding Controlled with: Pressure and Compression and gauze Patient tolerated procedure: Patient tolerated procedure well Post-Debridement Measurements and Additional Note: Post-Debridement Measurements/Treatment WC - Nurse 1 - General Ulcer Assessment Start: 05/27/23 15:34 Freq: Status: Active Protocol: BENIGNO Activity Type Activity Date Activity User E-sign Co-sign Detail Recorded Client Recorded Date Recorded By Document 05/27/23 15:35 DL Desktop 05/27/23 15:40 DL 05/27/23 15:35 WC - Today's Visit Information Type of service Follow-up Visit (Physician/PRINTING SPECIALIST ) Arrival Mode Wheelchair Transfer Assistance Manual Transfer Assist (Other) x2 Patient Identification Verified (Name & Yes ) Patient Requires Transmission-Based No Precautions Height and Weight Body Mass Index (BMI) 22.8 BMI Classification Normal Vital Signs Temperature (97.8 F-99.1 F) 98.9 F Temperature Source Temporal Pulse Rate (60-100) 85 Pulse Location Monitor Respiratory Rate (12-18) 20 H Respiratory rate source Observation Blood Pressure (90/60-120/80) 134/49 H Blood Pressure Mean (mm Hg) 77 Source Monitor History Since Last Visit- (Skip if this is Patient's initial visit) Have you changed medications since your No last visit? Any new allergies or adverse reactions No Had a fall/change in ADL's that may No increase risk of falls Signs or symptoms of abuse and/or No neglect since last visit Have you been in the hospital since your No last visit? Has dressing in place as prescribed Yes Has compression in place as prescribed N/A Has offloadiing in place as prescribed Yes Experienced any changes in pain level or No management Pain Scale: 0-10 Numeric Is Patient Pain Free? Yes - Nurse 1 - General Ulcer Measurement Start: 05/27/23 15:34 Freq: Status: Active Protocol: Activity Type Activity Date Activity User E-sign Co-sign Detail Recorded Client Recorded Date Recorded By Document 05/27/23 15:35 DL Desktop 05/27/23 15:40 DL 05/27/23 15:35 Wound Center Nurse 1 #1- sacral -Current Size (cm) - Length 0.9 -Current Size (cm) - Width 0.3 -Current Size (cm) - Depth 2.6 -Total Square Cm 0.27 -Photo Taken Yes -Tunneling Position (O'clock) 12 -Tunneling Distance (cm) 3 -Exudate Amt Medium -Exudate Type Serosanguineous -Wound Margin Distinct, Outline Attached -Granulation Amt Medium (34-66%) -Granulation Quality Red -Necrosis Amt Medium (34-66%) -Necrotic Tissue Type Adherent Slough -Structure Exposed N/A -Texture (Neda-wound Skin Appearance) Scarring -Moisture (Neda-wound Skin Appearance) No Abnormality -Color (Neda-wound Skin Appearance) No Abnormality -Temperature (Neda-wound Skin No Abnormality Appearance) (Pt Warm) -Tenderness on Palpation (Neda-wound No Skin Appearance) -Ulcer Cleansing Soap and Water -Foul Odor after Cleansing No WC - Nurse 3 - General Ulcer D/C NN Start: 05/27/23 15:34 Freq: Status: Active Protocol: Activity Type Activity Date Activity User E-sign Co-sign Detail Recorded Client Recorded Date Recorded By Document 05/27/23 16:03 KW Desktop 05/27/23 16:04 KW 05/27/23 16:03 Wound Care Center Nurse 3 -Primary Dressing Covered/Secured with Dry Gauze, Secured with Tape Pain Scale: 0-10 Numeric Is Patient Pain Free? Yes WC - Visit Discharge Discharge Condition Stable Ambulatory Status Wheelchair Transportation Private Auto Medication Reconcilliation completed & No provided to patient/care provider Clinical Summary of Care Provided Yes Assessment/Plan Assessment/Plan (1) Osteomyelitis: CODE(S): M86.9 - Osteomyelitis, unspecified QUALIFIERS: Osteomyelitis type: other chronic Osteomyelitis location: other site Qualified Code(s): M86.68 - Other chronic osteomyelitis, o ther site (2) Sacral decubitus ulcer, stage IV: CODE(S): L89.154 - Pressure ulcer of sacral region, stage 4 (3) Immobility syndrome (paraplegic): CODE(S): M62.3 - Immobility syndrome (paraplegic) (4) Multiple sclerosis: CODE(S): G35 - Multiple sclerosis (5) Long-term current use of rituximab: CODE(S): Z79.620 - meterman (current) use of immunosuppressive biologic (6) Former smoker: CODE(S): Z87.891 - Personal history of nicotine dependence (7) UTI (urinary tract infection): CODE(S): N39.0 - Urinary tract infection, site not specified PLAN: Plan Wound care - Discontinue wound VAC. Pack wound with Dakin's 0.25% moistened gauze daily and as needed. Kocuria kristinae in the bone is positive for osteomyelitis. It is significant and should be treated since it didn't show up in the soft tissue culture. She was placed on Augmentin per Infectious Diseases recommendation. She has finished the Augmentin. On 10/30/22, it was 20.1. Encourage nutritional supplementation with protein to help the healing process. Last 2021 she had diagnosis of osteomyelitis. She was placed on IV antibiotics per Infectious Diseases for 6 weeks until January,. This is important because it establishes a timeline for chronic refractory oste omyelitis. She is a candidate for HBO Treatments. We have received insurance approval for the HBO treatments, which she completed. She had 44 treatments. She had a CXR on 01/06/23. It showed no evidence of acute cardiopulmonary process. No evidence of congestive heart failure. No evidence pneumothorax. No focal infiltrates, consolidations, or effusions. I looked in her ears with an otoscope at her visit on 01/06/23. She had normal tympanic membranes. No bleeding was seen in the tympanic membranes. No fluid was seen behind the tympanic membranes. She would benefit from further tr eatments but she is changing insurance companies and is waiting to hear if she is approved for further treatments. The HBO treatments has shown improvement in her ulcer and it has been noted with granulation tissue over the bone. She had a Urinalysis on 02/10/23. It showed Leukocyte Esterase. Urine Culture showed Klebsiella pneumoniae. She was treated with Cipro. Wound culture obtained 05/12/23 was positive Corynebacterium striatum, Bacteroides thetaiotaomicron. She was treated with Augmentin. UA/C&S was obtained 05/12/23 and had no growth.? Followup [address] Gregory.
[2023-06-09 14:14] VITALS: BP 112/49; PULSE 72; RESP 20; TEMP 36.3; BMI 22.8
--- NOTE | 2023-06-09 15:18 | PN.PCM_ITS ---
History of Present Illness Date of Service: 06/09/23 Chief Complaint: Sacral pressure sore, Stage IV. History of Wound: Surgery 12/18/22 - Excision sacral pressure sore, Stage IV, with partial ostectomy for osteomyelitis. Wound care - Dakin's. Operative Culture - Corynebacterium striatum in the soft tissue and Kocuria kristinae in the bone. Was treated perioperatively with Augmentin and Flagyl for a preop culture positive for Enterococcus faecalis and Anaerobes. Kocuria kristinae in the bone is positive for osteomyelitis. It is significant and should be treated since it didn't show up in the soft tissue culture. She was placed on Augmentin and has finished them. Pathology - Negative for acute osteomyelitis. Chronic reparative and reactive change. Prealbumin from 10/30/22 was 20.1. Encourage nutritional supplementation with protein to help the healing process. MRI Pelvis from 08/21/22 - 2.8 cm decubitus ulcer at the base of the coccyx without discrete evidence of osteomyelitis. At her Wound Center visit on 02/10/23, she had urinary symptoms. A Urinalysis was done which did not report any WBC, and no Bacteria reported. The Leukocyte Esterase was 500. She was started on Cipro and has finished them. A Urine Culture showed Klebsiella pneumoniae. It is sensitive to Cipro. Today her urinary symptoms have resolved. Last 2021 she had diagnosis of osteomyelitis. She was placed on IV antibiotics per Infectious Diseases for 6 weeks until January,. This is important because it establishes a timeline for chronic refractory osteomyelitis. She underwent HBO treatments for chronic refractrory osteomyelitis and tolerated the treatments. Progress of Wound: Improving but the ulcer opening is closing too fast before the deeper tissue has a chance to heal. With the ulcer opening being smaller, it is becoming difficul t to pack. Objective Data Objective Data Vital Signs: Vital Signs Temp Pulse Resp BP 97.3 F L 72 20 H 112/49 L 06/09/23 14:14 06/09/23 14:14 06/09/23 14:14 06/09/23 14:14 Weight: 145 lb 9.6 oz Body Mass Index (BMI) 22.8 Prealbumin from 10/30/22 was 20.1. Encourage nutritional supplementation with protein to help the healing process. Lab / Micro Data Attestation: I reviewed the patient's lab results. Charges/Coding Procedures Integumentary 111xxx-113xx: [id number] Tran musc/fascia 20 sq cm/< (ICD-10 - L89.154, M86.9, M62.3, G35, Z79.620, Z87.891) Debridement Note Debridement Note Wound debrided: #1 Sacral area. Laterality: Not Applicable Wound Grade/Stage: IV. Type of Debridement: Excisional debridement Anesthesia Used: 5% Lidocaine Gel Depth: Down to and including healthy tissue, in the subcutaneous layer, to muscle and to bone (bone is palpable but not exposed.) Percentage of wound debrided: 100 Instrument Used: 3mm curette, #15 blade (I opened up the pressure sore wound to make it easier to pack with Dakin's) and Forceps Tissue Removed: subcutaneous tissue and muscle. Severity: Fat Layer Exposed (muscle is exposed. Bone is palpable but not exposed.) Amount of bleeding with debridement: Mild Bleeding Controlled with: Pressure, Compression and gauze and Silver Nitrate (was used for chemical cauterization where the incision was made.) Patient tolerated procedure: Patient tolerated procedure well Post-Debridement Measurements and Additional Note: Post-Debridement Measurements/Treatment - Nurse 1 - General Ulcer Assessment Start: 05/27/23 15:34 Freq: Status: Active Protocol: BENIGNO Activity Type Activity Date Activity User E-sign Co-sign Detail Recorded Client Recorded Date Recorded By Document 05/27/23 15:35 DL Desktop 05/27/23 15:40 DL Document 06/09/23 14:14 DL Desktop 06/09/23 14:20 DL 05/27/23 06/09/23 15:35 14:14 - Today's Visit Information Type of service Follow-up Visit Follow-up Visit (Physician/RAILWAY SIGNAL ELECTRICIAN (Physician/RAILWAY SIGNAL ELECTRICIAN ) ) Arrival Mode Wheelchair Wheelchair Transfer Assistance Manual Manual Transfer Assist (Other) x2 Patient Identification Verified (Name & Yes Yes ) Patient Requires Transmission-Based No No Precautions Height and Weight Body Mass Index (BMI) 22.8 22.8 BMI Classification Normal Normal Vital Signs Temperature (97.8 F-99.1 F) 98.9 F 97.3 F L Temperature Source Temporal Temporal Pulse Rate (60-100) 85 72 Pulse Location Monitor Monitor Respiratory Rate (12-18) 20 H 20 H Respiratory rate source Observation Observation Blood Pressure (90/60-120/80) 134/49 H 112/49 L Blood Pressure Mean (mm Hg) 77 70 Source Monitor Monitor History Since Last Visit- (Skip if this is Patient's initial visit) Have you changed medications since your No No last visit? Any new allergies or adverse reactions No No Had a fall/change in ADL's that may No No increase risk of falls Signs or symptoms of abuse and/or No No neglect since last visit Have you been in the hospital since your No No last visit? Has dressing in place as prescribed Yes Yes Has compression in place as prescribed N/A N/A Has offloadiing in place as prescribed Yes Yes Experienced any changes in pain level or No No management Left Footwear Regular Shoe Right Footwear Regular Shoe Pain Scale: 0-10 Numeric Is Patient Pain Free? Yes Yes WC - Nurse 1 - General Ulcer Measurement Start: 05/27/23 15:34 Freq: Status: Active Protocol: Activity Type Activity Date Activity User E-sign Co-sign Detail Recorded Client Recorded Date Recorded By Document 05/27/23 15:35 DL Desktop 05/27/23 15:40 DL Document 06/09/23 14:14 DL Desktop 06/09/23 14:20 DL 05/27/23 06/09/23 15:35 14:14 Wound Center Nurse 1 #1- sacral -Current Size (cm) - Length 0.9 0.2 -Current Size (cm) - Width 0.3 0.5 -Current Size (cm) - Depth 2.6 3.5 -Total Square Cm 0.27 0.10 -Photo Taken Yes -Tunneling Position (O'clock) 12 12 -Tunneling Distance (cm) 3 4.5 -Exudate Amt Medium Medium -Exudate Type Serosanguineous Serosanguineous -Wound Margin Distinct, Distinct, Outline Outline Attached Attached -Granulation Amt Medium (34-66%) -Granulation Quality Red Pale,[place] -Necrosis Amt Medium (34-66%) Small (1-33%) -Necrotic Tissue Type Adherent Slough Adherent Slough -Structure Exposed N/A -Texture (Neda-wound Skin Appearance) Scarring Assessed -Moisture (Neda-wound Skin Appearance) No Abnormality Assessed -Color (Neda-wound Skin Appearance) No Abnormality Assessed -Temperature (Neda-wound Skin No Abnormality No Abnormality Appearance) (Pt Warm) (Pt Warm) -Tenderness on Palpation (Neda-wound No Skin Appearance) -Ulcer Cleansing Soap and Water Rinsed/ Irrigated with Saline -Foul Odor after Cleansing No -Anesthetic Used 5% Lidocaine Gel DEBBI - Nurse 2 - General Ulcer CM Notes Start: 05/27/23 15:34 Freq: Status: Active Protocol: Activity Type Activity Date Activity User E-sign Co-sign Detail Recorded Client Recorded Date Recorded By Document 05/27/23 16:22 PL [id number] 05/27/23 16:23 PL Document 06/09/23 14:35 JF Laptop 06/09/23 14:36 JF 05/27/23 06/09/23 16:22 14:35 Wound Center Nurse 2 #1- sacral -Time 15:46 14:35 -Correct Patient Yes Yes -Correct Side, Site, Position Yes Yes -Correct Procedure Yes Yes -Procedure Performed Yes Yes -Type of Procedure Debridement Debridement -Clinical Debridement Muscle / Fascia Muscle / Fascia -Tissue Removed Muscle Muscle,Fascia -Post Debridement (cm) - Length 1.5 3.0 -Post Debridement (cm) - Width 0.6 1.2 -Post Debridement (cm) - Depth 2.3 2.9 -Total Square (Post) (cm) 0.90 3.60 -Area of Debridement (cm) - Length 1.5 3.0 -Area of Debridement (cm) - Width 0.6 1.2 -Total Square (Area) (cm) 0.90 3.60 -Tunneling Yes No -Tunneling Position (O'clock) 12 -Tunneling Distance (cm) 3.0 -Undermining/Tunneling No -Circular Undermining No -Wound/Ulcer Outcome Not Healed Not Healed -Ulcer Cleansing Rinsed/ Rinsed/ Irrigated with Irrigated with Saline Saline -Foul Odor after Cleansing No No -Bioengineered Tissue No No -Bleeding Controlled with Pressure Pressure,Silver Nitrate -Treatment Response Procedure Procedure Tolerated Well Tolerated Well -Offloading No -Assistive Device(s) Wheelchair -Pressure Reduction Wheelchair cushion -Debridement - Muscle / Fascia, 1st Yes Yes 20sq cm Pain Scale: 0-10 Numeric Is Patient Pain Free? Yes Yes DEBBI - Nurse 3 - General Ulcer D/C NN Start: 05/27/23 15:34 Freq: Status: Active Protocol: Activity Type Activity Date Activity User E-sign Co-sign Detail Recorded Client Recorded Date Recorded By Document 05/27/23 16:03 KW Desktop 05/27/23 16:04 KW Document 06/09/23 14:46 KW Desktop 06/09/23 14:47 KW Edit Result 06/09/23 14:46 KW (1) [id number] 06/09/23 15:02 BMF (1) #1- sacral - Primary Dressing Applied => Hysept ($) 05/27/23 06/09/23 16:03 14:46 Wound Care Center Nurse 3 #1- sacral -Ulcer Cleansing Rinsed/ Irrigated with Saline -Primary Dressing Applied Hysept ($) -Primary Dressing Covered/Secured with Dry Gauze, Dry Gauze, Secured with Secured with Tape Tape Pain Scale: 0-10 Numeric Is Patient Pain Free? Yes Yes WC - Visit Discharge Discharge Condition Stable Stable Ambulatory Status Wheelchair Wheelchair Transportation Private Auto Private Auto Medication Reconcilliation completed & No No provided to patient/care provider Clinical Summary of Care Provided Yes Yes Assessment/Plan Assessment/Plan (1) Sacral decubitus ulcer, stage IV: CODE(S): L89.154 - Pressure ulcer of sacral region, stage 4 (2) Osteomyelitis: CODE(S): M86.9 - Osteomyelitis, unspecified QUALIFIERS: Osteomyelitis type: other chronic Osteomyelitis location: other site Qualified Code(s): M86.68 - Other chronic osteomyelitis, other site (3) Immobility syndrome (paraplegic): CODE(S): M62.3 - Immobility syndrome (paraplegic) (4) Multiple sclerosis: CODE(S): G35 - Multiple sclerosis (5) Long-term current use of rituximab: CODE(S): 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 Kocuria kristinae in the bone is positive for osteomyelitis. It is significant and should be treated since it didn't show up in the soft tissue culture. She was placed on Augmentin per Infectious Diseases recommendation. She has finished the Augmentin. On 10/30/22, Prealbumin was 20.1. Encourage nutritional supplementation with protein to help the healing process. Last 2021 she had diagnosis of osteomyelitis. She was placed on IV antibiotics per Infectious Diseases for 6 weeks until January,. This is important because it establishes a timeline for chronic refractory osteomyelitis. She underwent HBO tr (44 treatments) eatments for chronic refractory osteomyelitis. The HBO treatments showed improvement in her ulcer as it has been noted with granulation tissue over the bone. She had a Urinalysis on 02/10/23. It showed Leukocyte Esterase. Urine Culture showed Klebsiella pneumoniae. She was treated with Cipro. Wound culture obtained 05/12/23 was positive Corynebacterium striatum, Bacteroides thetaiotaomicron. She was treated with Augmentin. UA/C&S was obtained 05/12/23 and had no growth.? Followup 2 weeks
== END 2023-06-25 23:59 | disposition home or self-care (01) ==
LOC: WC 14:00
PROVIDERS: PCP Family Medicine; Referring Provider Nurse Practitioner; Visit Provider Nurse Practitioner Family
DX: L89.154 Pressure ulcer of sacral region, stage 4 (principal); G35 Multiple sclerosis; M86.68 Other chronic osteomyelitis, other site; M62.3 Immobility syndrome (paraplegic); Z87.891 Personal history of nicotine dependence; Z79.620 Long term (current) use of immunosuppressive biologic
CPT/HCPCS: 11043

== ENCOUNTER 2023-07-14 15:00 | Outpatient (RCR) | payer MEDICARE, SELFPAY ==
[2023-06-26 00:29] VITALS: BP 112/49; PULSE 72; RESP 20; TEMP 36.3; BMI 22.8
[2023-06-30 15:17] VITALS: BP 120/34; PULSE 82; RESP 16; BMI 22.8
--- NOTE | 2023-06-30 15:55 | PCM.WC.PN ---
History of Present Illness Date of Service: 06/30/23 Chief Complaint: Sacral pressure sore, Stage IV. History of Wound: Surgery 12/18/22 - Excision sacral pressure sore, Stage IV, with partial ostectomy for osteomyelitis. Wound care - Dakin's. Operative Culture - Corynebacterium striatum in the soft tissue and Kocuria kristinae in the bone. Was treated perioperatively with Augmentin and Flagyl for a preop culture positive for Enterococcus faecalis and Anaerobes. Kocuria kristinae in the bone is positive for osteomyelitis. It is significant and should be treated since it didn't show up in the soft tissue culture. She was placed on Augmentin and has finished them. Pathology - Negative for acute osteomyelitis. Chronic reparative and reactive change. Prealbumin from 10/30/22 was 20.1. Encourage nutritional supplementation with protein to help the healing process. MRI Pelvis from 08/21/22 - 2.8 cm decubitus ulcer at the base of the coccyx without discrete evidence of osteomyelitis. At her Wound Center visit on 02/10/23, she had urinary symptoms. A Urinalysis was done which did not report any WBC, and no Bacteria reported. The Leukocyte Esterase was 500. She was started on Cipro and has finished them. A Urine Culture showed Klebsiella pneumoniae. It is sensitive to Cipro. Today her urinary symptoms have resolved. Last 2021 she had diagnosis of osteomyelitis. She was placed on IV antibiotics per Infectious Diseases for 6 weeks until January,. This is important because it establishes a timeline for chronic refractory osteomyelitis. She underwent HBO treatments for chronic refractrory osteomyelitis and tolerated the treatments. Progress of Wound: Improved. Objective Data Objective Data Vital Signs: Vital Signs Temp Pulse Resp BP O2 Del Method 97.3 F L 82 16 120/34 L Room Air 06/26/23 00:29 06/30/23 15:17 06/30/23 15:17 06/30/23 15:17 06/30/23 15:17 Oxygen Delivery Method Room Air Weight: 145 lb 9.6 oz Body Mass Index (BMI) 22.8 Prealbumin from 10/30/22 was 20.1. Encourage nutritional supplementation with protein to help the healing process. Lab / Micro Data Attestation: I reviewed the patient's lab results. Charges/Coding Procedures Integumentary 111xxx-113xx: 16840 Tran musc/fascia 20 sq cm/< (ICD-10 - L89.154, M86.9, M62.3, G35, Z79.620, Z87.891) Debridement Note Debridement Note Wound debrided: #1 Sacral area. Laterality: Not Applicable Wound Grade/Stage: IV. Type of Debridement: Excisional debridement Anesthesia Used: 5% Lidocaine Gel Depth: Down to and including healthy tissue, in the subcutaneous layer, to muscle and to bone (bone is palpable but not exposed.) Percentage of wound debrided: 100 Instrument Used: 3mm curette Tissue Removed: subcutaneous tissue and muscle. Severity: Fat Layer Exposed (muscle is exposed. Bone is palpable but not exposed.) Amount of bleeding with debridement: Mild Bleeding Controlled with: Pressure, Compression and gauze and Silver Nitrate (was used for chemical cauterization where the incision was made.) Patient tolerated procedure: Patient tolerated procedure well Post-Debridement Measurements and Additional Note: Post-Debridement Measurements/Treatment - Nurse 1 - General Ulcer Assessment Start: 06/30/23 15:17 Freq: Status: Active Protocol: AutoniqEXKaushik Activity Type Activity Date Activity User E-sign Co-sign Detail Recorded Client Recorded Date Recorded By Document 06/30/23 15:17 [facility] Desktop 06/30/23 15:27 [facility] 06/30/23 15:17 - Today's Visit Information Type of service Follow-up Visit (Physician/ACTUARIAL TECHNICIAN ) Arrival Mode Wheelchair Transfer Assistance None Patient Identification Verified (Name & Yes ) Patient Requires Transmission-Based No Precautions Height and Weight Body Mass Index (BMI) 22.8 BMI Classification Normal Vital Signs Pulse Rate (60-100) 82 Pulse Location Monitor Respiratory Rate (12-18) 16 Respiratory rate source Observation Oxygen Delivery Method Room Air Blood Pressure (90/60-120/80) 120/34 L Blood Pressure Mean (mm Hg) 62 Source Monitor Position Sitting Blood Pressure Location Right Arm History Since Last Visit- (Skip if this is Patient's initial visit) Have you changed medications since your No last visit? Any new allergies or adverse reactions No Had a fall/change in ADL's that may No increase risk of falls Signs or symptoms of abuse and/or No neglect since last visit Have you been in the hospital since your No last visit? Has dressing in place as prescribed Yes Has compression in place as prescribed N/A Has offloadiing in place as prescribed N/A Experienced any changes in pain level or No management Left Footwear Regular Shoe Right Footwear Regular Shoe Pain Scale: 0-10 Numeric Is Patient Pain Free? Yes - Nurse 1 - General Ulcer Measurement Start: 06/30/23 15:17 Freq: Status: Active Protocol: Activity Type Activity Date Activity User E-sign Co-sign Detail Recorded Client Recorded Date Recorded By Document 06/30/23 15:17 [facility] Desktop 06/30/23 15:27 [facility] 06/30/23 15:17 Wound Center Nurse 1 #1- sacral -Combined with other wound No -Current Size (cm) - Length 2.7 -Current Size (cm) - Width 0.4 -Current Size (cm) - Depth 3.2 -Total Square Cm 1.08 -Date of Last Picture (Recall this 06/30/23 field) -Photo Taken Yes -Epithelialization None Present -Exudate Amt Medium -Exudate Type Serosanguineous -Wound Margin Distinct, Outline Attached -Granulation Amt Large (67-100%) -Granulation Quality Red -Slough/Fibrin Yes -Texture (Neda-wound Skin Appearance) Assessed, Scarring -Moisture (Neda-wound Skin Appearance) Assessed -Color (Neda-wound Skin Appearance) Assessed -Temperature (Neda-wound Skin No Abnormality Appearance) (Pt Warm) -Tenderness on Palpation (Neda-wound No Skin Appearance) -Ulcer Cleansing Soap and Water -Foul Odor after Cleansing No -Anesthetic Used 4% Lidocaine Solution - Nurse 2 - General Ulcer CM Notes Start: 06/30/23 15:17 Freq: Status: Active Protocol: Activity Type Activity Date Activity User E-sign Co-sign Detail Recorded Client Recorded Date Recorded By Document 06/30/23 16:28 PL [id number] 06/30/23 16:29 PL 06/30/23 16:28 Wound Center Nurse 2 -Time 15:32 -Correct Patient Yes -Correct Side, Site, Position Yes -Correct Procedure Yes -Procedure Performed Yes -Type of Procedure Debridement -Clinical Debridement Muscle/Fascia -Tissue Removed Muscle/Fascia -Post Debridement (cm) - Length 2.7 -Post Debridement (cm) - Width 0.4 -Post Debridement (cm) - Depth 3.2 -Total Square (Post) (cm) 1.08 -Area of Debridement (cm) - Length 2.7 -Area of Debridement (cm) - Width 0.4 -Total Square (Area) (cm) 1.08 -Tunneling No -Undermining/Tunneling No -Circular Undermining No -Wound/Ulcer Outcome Not Healed -Ulcer Cleansing Rinsed/ Irrigated with Saline -Foul Odor after Cleansing No -Bioengineered Tissue No -Bleeding Controlled with Pressure -Treatment Response Procedure Tolerated Well -Debridement - Muscle/Fascia, 1st 20sq cm Yes Pain Scale: 0-10 Numeric Is Patient Pain Free? Yes - Nurse 3 - General Ulcer D/C NN Start: 06/30/23 15:17 Freq: Status: Active Protocol: Activity Type Activity Date Activity User E-sign Co-sign Detail Recorded Client Recorded Date Recorded By Document 06/30/23 15:43 KW Desktop 06/30/23 15:45 KW 06/30/23 15:43 Wound Care Center Nurse 3 #1- sacral -Primary Dressing Covered/Secured with Dry Gauze, Secured with Tape Pain Scale: 0-10 Numeric Is Patient Pain Free? Yes - Visit Discharge Discharge Condition Stable Ambulatory Status Wheelchair Transportation Private Auto Medication Reconcilliation completed & No provided to patient/care provider Clinical Summary of Care Provided Yes Assessment/Plan Assessment/Plan (1) Sacral decubitus ulcer, stage IV: CODE(S): L89.154 - Pressure ulcer of sacral region, stage 4 (2) Osteomyelitis: CODE(S): M86.9 - Osteomyelitis, unspecified QUALIFIERS: Osteomyelitis type: other chronic Osteomyelitis location: other site Qualified Code(s): M86.68 - Other chronic osteomyelitis, other site (3) Immobility syndrome (paraplegic): CODE(S): M62.3 - Immobility syndrome (paraplegic) (4) Multiple sclerosis: CODE(S): G35 - Multiple sclerosis (5) Long-term current use of rituximab: CODE(S): Z79.620 - senior care (current) use of immunosuppressive biologic (6) Former smoker: CODE(S): Z87.891 - Personal history of nicotine dependence PLAN: Plan Continue Dakin's 0.25% moistened gauze daily and as needed. Kocuria kristinae in the bone is positive for osteomyelitis. It is significant and should be treated since it didn't show up in the soft tissue culture. She was placed on Augmentin per Infectious Diseases recommendation. She has finished the Augmentin. On 10/30/22, Prealbumin was 20.1. Encourage nutritional supplementation with protein to help the healing process. Last 2021 she had diagnosis of osteomyelitis. She was placed on IV antibiotics per Infectious Diseases for 6 weeks until January,. This is important because it establishes a timeline for chronic refractory osteomyelitis. She underwent HBO treatments (44 treatments) for chronic refractory osteomyelitis. The HBO treatments showed improvement in her ulcer as it has been noted with granulation tissue over the bone. She had a Urinalysis on 02/10/23. It showed Leukocyte Esterase. Urine Culture showed Klebsiella pneumoniae. She was treated with Cipro. Wound culture obtained 05/12/23 was positive Corynebacterium striatum, Bacteroides thetaiotaomicron. She was treated with Augmentin. UA/C&S was obtained 05/12/23 and had no growth.? Followup 2 weeks
[2023-07-14 15:08] VITALS: BP 119/39; PULSE 72; RESP 16; TEMP 37; BMI 22.8
--- NOTE | 2023-07-14 16:05 | PN.PCM_ITS ---
History of Present Illness Date of Service: 07/14/23 Chief Complaint: Sacral pressure sore, Stage IV. History of Wound: Surgery 12/18/22 - Excision sacral pressure sore, Stage IV, with partial ostectomy for osteomyelitis. Wound care - Dakin's. Operative Culture - Corynebacterium striatum in the soft tissue and Kocuria kristinae in the bone. Was treated perioperatively with Augmentin and Flagyl for a preop culture positive for Enterococcus faecalis and Anaerobes. Kocuria kristinae in the bone is positive for osteomyelitis. It is significant and should be treated since it didn't show up in the soft tissue culture. She was placed on Augmentin and has finished them. Pathology - Negative for acute osteomyelitis. Chronic reparative and reactive change. Prealbumin from 10/30/22 was 20.1. Encourage nutritional supplementation with protein to help the healing process. MRI Pelvis from 08/21/22 - 2.8 cm decubitus ulcer at the base of the coccyx without discrete evidence of osteomyelitis. At her Wound Center visit on 02/10/23, she had urinary symptoms. A Urinalysis was done which did not report any WBC, and no Bacteria reported. The Leukocyte Esterase was 500. She was started on Cipro and has finished them. A Urine Culture showed Klebsiella pneumoniae. It is sensitive to Cipro. Today her urinary symptoms have resolved. Last 2021 she had diagnosis of osteomyelitis. She was placed on IV antibiotics per Infectious Diseases for 6 weeks until January,. This is important because it establishes a timeline for chronic refractory osteomyelitis. She underwent HBO treatments for chronic refractory osteomyelitis and tolerated the treatments. Today she denies fever. Her appetite is good. Progress of Wound: Improved. Objective Data Objective Data Vital Signs: Vital Signs Temp Pulse Resp BP O2 Del Method 98.6 F 72 16 119/39 L Room Air 07/14/23 15:08 07/14/23 15:08 07/14/23 15:08 07/14/23 15:08 07/14/23 15:08 Oxygen Delivery Method Room Air Weight: 145 lb 9.6 oz Body Mass Index (BMI) 22.8 Prealbumin from 10/30/22 was 20.1. Encourage nutritional supplementation with protein to help the healing process. Lab / Micro Data Attestation: I reviewed the patient's lab results. Charges/Coding Procedures Integumentary 111xxx-113xx: 39548 Tran musc/fascia 20 sq cm/< (ICD-10 - L89.154, M86.9, M62.3, G35, Z79.620, Z87.891) Debridement Note Debridement Note Wound debrided: #1 Sacral area. Laterality: Not Applicable Wound Grade/Stage: IV. Type of Debridement: Excisional debridement Anesthesia Used: 5% Lidocaine Gel Depth: Down to and including healthy tissue, in the subcutaneous layer, to muscle and to bone (bone is palpable but not exposed.) Percentage of wound debrided: 100 Instrument Used: 3mm curette Tissue Removed: subcutaneous tissue and muscle. Severity: Fat Layer Exposed (muscle is exposed. Bone is palpable but not exposed.) Amount of bleeding with debridement: Mild Bleeding Controlled with: Pressure and Compression and gauze Patient tolerated procedure: Patient tolerated procedure well Post-Debridement Measurements and Additional Note: Post-Debridement Measurements/Treatment - Nurse 1 - General Ulcer Assessment Start: 06/30/23 15:17 Freq: Status: Active Protocol: TeraFirrmaJOHNNIE Activity Type Activity Date Activity User E-sign Co-sign Detail Recorded Client Recorded Date Recorded By Document 06/30/23 15:17 [employer] Desktop 06/30/23 15:27 [employer] Document 07/14/23 15:08 [employer] Desktop 07/14/23 15:19 [facility] 06/30/23 07/14/23 15:17 15:08 - Today's Visit Information Type of service Follow-up Visit Follow-up Visit (Physician/PARALLEL COMPUTING SOFTWARE ENGINEER (Physician/PARALLEL COMPUTING SOFTWARE ENGINEER ) ) Arrival Mode Wheelchair Wheelchair Transfer Assistance None Other Transfer Assist (Other) stand by Patient Identification Verified (Name & Yes Yes ) Patient Requires Transmission-Based No No Precautions Height and Weight Body Mass Index (BMI) 22.8 22.8 BMI Classification Normal Normal Vital Signs Temperature (97.8 F-99.1 F) 98.6 F Temperature Source Temporal Pulse Rate (60-100) 82 72 Pulse Location Monitor Monitor Respiratory Rate (12-18) 16 16 Respiratory rate source Observation Observation Oxygen Delivery Method Room Air Room Air Blood Pressure (90/60-120/80) 120/34 L 119/39 L Blood Pressure Mean (mm Hg) 62 65 Source Monitor Monitor Position Sitting Sitting Blood Pressure Location Right Arm Left Arm History Since Last Visit- (Skip if this is Patient's initial visit) Have you changed medications since your No No last visit? Any new allergies or adverse reactions No No Had a fall/change in ADL's that may No No increase risk of falls Signs or symptoms of abuse and/or No No neglect since last visit Have you been in the hospital since your No No last visit? Has dressing in place as prescribed Yes Yes Has compression in place as prescribed N/A N/A Has offloadiing in place as prescribed N/A N/A Experienced any changes in pain level or No No management Left Footwear Regular Shoe Regular Shoe Right Footwear Regular Shoe Regular Shoe Pain Scale: 0-10 Numeric Is Patient Pain Free? Yes Yes WC - Nurse 1 - General Ulcer Measurement Start: 06/30/23 15:17 Freq: Status: Active Protocol: Activity Type Activity Date Activity User E-sign Co-sign Detail Recorded Client Recorded Date Recorded By Document 06/30/23 15:17 [employer] Desktop 06/30/23 15:27 [employer] Document 07/14/23 15:08 [employer] Desktop 07/14/23 15:19 [facility] 06/30/23 07/14/23 15:17 15:08 Wound Center Nurse 1 #1- sacral -Combined with other wound No No -Current Size (cm) - Length 2.7 2.1 -Current Size (cm) - Width 0.4 0.6 -Current Size (cm) - Depth 3.2 3.2 -Total Square Cm 1.08 1.26 -Date of Last Picture (Recall this 06/30/23 07/14/23 field) -Photo Taken Yes Yes -Epithelialization None Present -Tunneling Position (O'clock) 1 -Tunneling Distance (cm) 4 -Exudate Amt Medium -Exudate Type Serosanguineous -Wound Margin Distinct, Outline Attached -Granulation Amt Large (67-100%) -Granulation Quality Red -Slough/Fibrin Yes -Texture (Neda-wound Skin Appearance) Assessed, Assessed, Scarring Scarring -Moisture (Neda-wound Skin Appearance) Assessed Assessed -Color (Neda-wound Skin Appearance) Assessed Assessed -Temperature (Neda-wound Skin No Abnormality No Abnormality Appearance) (Pt Warm) (Pt Warm) -Tenderness on Palpation (Neda-wound No No Skin Appearance) -Ulcer Cleansing Soap and Water Rinsed/ Irrigated with Saline -Foul Odor after Cleansing No No -Anesthetic Used 4% Lidocaine Solution - Nurse 2 - General Ulcer CM Notes Start: 06/30/23 15:17 Freq: Status: Active Protocol: Activity Type Activity Date Activity User E-sign Co-sign Detail Recorded Client Recorded Date Recorded By Document 06/30/23 16:28 PL [id number] 06/30/23 16:29 PL Document 07/14/23 15:45 JF Laptop 07/14/23 15:47 JF 06/30/23 07/14/23 16:28 15:45 Wound Center Nurse 2 #1- sacral -Time 15:32 15:46 -Correct Patient Yes Yes -Correct Side, Site, Position Yes Yes -Correct Procedure Yes Yes -Procedure Performed Yes Yes -Type of Procedure Debridement Debridement -Clinical Debridement Subcutaneous Muscle / Fascia -Tissue Removed Subcutaneous Muscle,Fascia -Post Debridement (cm) - Length 2.7 2.0 -Post Debridement (cm) - Width 0.4 0.6 -Post Debridement (cm) - Depth 3.2 2.0 -Total Square (Post) (cm) 1.08 1.20 -Area of Debridement (cm) - Length 2.7 2.0 -Area of Debridement (cm) - Width 0.4 0.6 -Total Square (Area) (cm) 1.08 1.20 -Tunneling No No -Undermining/Tunneling No No -Circular Undermining No No -Wound/Ulcer Outcome Not Healed Not Healed -Ulcer Cleansing Rinsed/ Rinsed/ Irrigated with Irrigated with Saline Saline -Foul Odor after Cleansing No No -Bioengineered Tissue No No -Bleeding Controlled with Pressure Pressure -Treatment Response Procedure Procedure Tolerated Well Tolerated Well -Offloading No -Debridement - Subq, 1st 20sq cm Yes -Debridement - Muscle / Fascia, 1st Yes 20sq cm Pain Scale: 0-10 Numeric Is Patient Pain Free? Yes Yes - Nurse 3 - General Ulcer D/C NN Start: 06/30/23 15:17 Freq: Status: Active Protocol: Activity Type Activity Date Activity User E-sign Co-sign Detail Recorded Client Recorded Date Recorded By Document 06/30/23 15:43 KW Desktop 06/30/23 15:45 KW Document 07/14/23 15:59 DL Desktop 07/14/23 16:01 DL 06/30/23 07/14/23 15:43 15:59 Wound Care Center Nurse 3 #1- sacral -Ulcer Cleansing Rinsed/ Irrigated with Saline -Foul Odor after Cleansing No -Primary Dressing Applied Aquacel AG 4x4 -Primary Dressing Covered/Secured with Dry Gauze, Dry Gauze, Secured with Secured with Tape Tape -Aquacel AG 4x4 1 Treatment Response Procedure Tolerated Well Pain Scale: 0-10 Numeric Is Patient Pain Free? Yes Yes WC - Visit Discharge Discharge Condition Stable Stable Ambulatory Status Wheelchair Wheelchair Transportation Private Auto Private Auto Medication Reconcilliation completed & No provided to patient/care provider Clinical Summary of Care Provided Yes Assessment/Plan Assessment/Plan (1) Sacral decubitus ulcer, stage IV: CODE(S): L89.154 - Pressure ulcer of sacral region, stage 4 (2) Osteomyelitis: CODE(S): M86.9 - Osteomyelitis, unspecified QUALIFIERS: Osteomyelitis type: other chronic Osteomyelitis location: other site Qualified Code(s): M86.68 - Other chronic osteomyelitis, other site (3) Immobility syndrome (paraplegic): CODE(S): M62.3 - Immobility syndrome (paraplegic) (4) Multiple sclerosis: CODE(S): G35 - Multiple sclerosis (5) Long-term current use of rituximab: CODE(S): Z79.620 - [facility] (current) use of immunosuppressive biologic (6) Former smoker: CODE(S): Z87.891 - Personal history of nicotine dependence PLAN: Plan Continue Dakin's 0.25% moistened gauze but will alternate with a Silver dressing to see if more healing can be seen. Kocuria kristinae in the bone is positive for osteomyelitis. It is significant and should be treated since it didn't show up in the soft tissue culture. She was placed on Augmentin per Infectious Diseases recommendation. She has finished the Augmentin. On 10/30/22, Prealbumin was 20.1. Encourage nutritional supplementation with protein to help the healing process. Last 2021 she had diagnosis of osteomyelitis. She was placed on IV antibiotics per Infectious Diseases for 6 weeks until January,. This is important because it establishes a timeline for chronic refractory osteomyelitis. She underwent HBO treatments (44 treatments) for chronic refrac tory osteomyelitis. The HBO treatments showed improvement in her ulcer as it has been noted with granulation tissue over the bone. Now that there is granulation tissue over the bone and the sides of the ulcer are showing some healing contraction, I would like to see some evidence of the healing getting more superficial. Hopefully the Silver dressing alternating with Dakin's dressing changes can improve the healing. Discussed a date in the future that would decide if more surgery is needed, another excision of the pressure ulcer along with partial ostectomy. The date will be September 23, 2023. If continued healing is noted, then will extend the date for another month. If another excision of the pressure ulcer is necessary, then will check the cultures and pathology to see what organisms are present so the appropriate antibiotics can be started before proceeding with closure of the ulcer with a myocutaneous flap. Patient voiced understanding. Followup 2 weeks
== END 2023-07-24 23:59 | disposition home or self-care (01) ==
LOC: WC 15:00
PROVIDERS: PCP Family Medicine; Referring Provider Nurse Practitioner; Visit Provider Nurse Practitioner Family
DX: L89.154 Pressure ulcer of sacral region, stage 4 (principal); G35 Multiple sclerosis; M86.68 Other chronic osteomyelitis, other site; M62.3 Immobility syndrome (paraplegic); Z87.891 Personal history of nicotine dependence; Z79.620 Long term (current) use of immunosuppressive biologic
CPT/HCPCS: 11042; 11043

== ENCOUNTER 2023-08-20 13:00 | Outpatient (RCR) | payer MEDICARE, SELFPAY ==
[2023-07-25 00:28] VITALS: BP 119/39; PULSE 72; RESP 16; TEMP 37; BMI 22.8
[2023-08-06 15:43] VITALS: BP 121/42; PULSE 75; RESP 18; TEMP 36.1; BMI 22.8
--- NOTE | 2023-08-06 17:06 | PN.PCM_ITS ---
History of Present Illness Date of Service: 08/06/23 Chief Complaint: Sacral pressure sore, Stage IV. History of Wound: Surgery 12/18/22 - Excision sacral pressure sore, Stage IV, with partial ostectomy for osteomyelitis. Wound care - Dakin's alternated with Silver dressings. Operative Culture - Corynebacterium striatum in the soft tissue and Kocuria kristinae in the bone. Was treated perioperatively with Augmentin and Flagyl for a preop culture positive for Enterococcus faecalis and Anaerobes. Kocuria kristinae in the bone is positive for osteomyelitis. It is significant and should be treated since it didn't show up in the soft tissue culture. She was placed on Augmentin and has finished them. Pathology - Negative for acute osteomyelitis. Chronic reparative and reactive change. Prealbumin from 10/30/22 was 20.1. Encourage nutritional supplementation with protein to help the healing process. MRI Pelvis from 08/21/22 - 2.8 cm decubitus ulcer at the base of the coccyx without discrete evidence of osteomyelitis. At her Wound Center visit on 02/10/23, she had urinary symptoms. A Urinalysis was done which did not report any WBC, and no Bacteria reported. The Leukocyte Esterase was 500. She was started on Cipro and has finished them. A Urine Culture showed Klebsiella pneumoniae. It is sensitive to Cipro. Today her urinary symptoms have resolved. In the Summer, 2021 she had diagnosis of osteomyelitis. She was placed on IV antibiotics per Infectious Diseases for 6 weeks until January,. This is important because it establishes a timeline for chronic refractory osteomyelitis. She underwent HBO treatments for chronic refractory osteomyelitis and tolerated the treatments. Today she denies fever. Her appetite is good. Progress of Wound: Slightly improved. Objective Data Objective Data Vital Signs: Vital Signs Temp Pulse Resp BP 97 F L 75 18 121/42 H 08/06/23 15:43 08/06/23 15:43 08/06/23 15:43 08/06/23 15:43 Weight: 145 lb 9.6 oz Body Mass Index (BMI) 22.8 Prealbumin from 10/30/22 was 20.1. Encourage nutritional supplementation with protein to help the healing process. Lab / Micro Data Attestation: I reviewed the patient's lab results. Charges/Coding Procedures Integumentary 111xxx-113xx: 81225 Tran musc/fascia 20 sq cm/< (ICD-10 - L89.154, M86.9, M62.3, G35, Z79.620, Z87.891) Debridement Note Debridement Note Wound debrided: #1 Sacral area. Laterality: Not Applicable Wound Grade/Stage: IV. Type of Debridement: Excisional debridement Anesthesia Used: 5% Lidocaine Gel Depth: Down to and including healthy tissue, in the subcutaneous layer, to muscle and to bone (bone is palpable but not exposed.) Percentage of wound debrided: 100 Instrument Used: 3mm curette Tissue Removed: subcutaneous tissue and muscle. Severity: Fat Layer Exposed (muscle is exposed. Bone is palpable but not exposed.) Amount of bleeding with debridement: Mild Bleeding Controlled with: Pressure and Compression and gauze Patient tolerated procedure: Patient tolerated procedure well Post-Debridement Measurements and Additional Note: Post-Debridement Measurements/Treatment - Nurse 1 - General Ulcer Assessment Start: 08/06/23 15:43 Freq: Status: Active Protocol: BENIGNO Activity Type Activity Date Activity User E-sign Co-sign Detail Recorded Client Recorded Date Recorded By Document 08/06/23 15:43 Desktop 08/06/23 15:45 RB 08/06/23 15:43 - Today's Visit Information Type of service 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 ) Arrival Mode Wheelchair Transfer Assistance None Patient Identification Verified (Name & Yes ) Patient Requires Transmission-Based No Precautions Height and Weight Body Mass Index (BMI) 22.8 BMI Classification Normal Vital Signs Temperature (97.8 F-99.1 F) 97 F L Temperature Source Temporal Pulse Rate (60-100) 75 Pulse Location Monitor Respiratory Rate (12-18) 18 Respiratory rate source Observation Blood Pressure (90/60-120/80) 121/42 H Blood Pressure Mean (mm Hg) 68 Source Monitor Position Semi-Fowlers Blood Pressure Location Left Arm History Since Last Visit- (Skip if this is Patient's initial visit) Have you changed medications since your No last visit? Any new allergies or adverse reactions No Had a fall/change in ADL's that may No increase risk of falls Signs or symptoms of abuse and/or No neglect since last visit Have you been in the hospital since your No last visit? Has dressing in place as prescribed Yes Has compression in place as prescribed No Has offloadiing in place as prescribed Yes Experienced any changes in pain level or No management Pain Scale: 0-10 Numeric Is Patient Pain Free? Yes WC - Nurse 1 - General Ulcer Measurement Start: 08/06/23 15:43 Freq: Status: Active Protocol: Activity Type Activity Date Activity User E-sign Co-sign Detail Recorded Client Recorded Date Recorded By Document 08/06/23 15:43 RB Desktop 08/06/23 15:45 RB 08/06/23 15:43 Wound Center Nurse 1 #1- sacral -Combined with other wound No -Current Size (cm) - Length 0.7 -Current Size (cm) - Width 0.4 -Current Size (cm) - Depth 3.4 -Total Square Cm 0.28 -Tunneling No -Undermining/Tunneling No -Circular Undermining No -Exudate Amt Large -Exudate Type Serosanguineous -Wound Margin Thickened & Rolled Under -Granulation Amt Medium (34-66%) -Granulation Quality [place] -Slough/Fibrin Yes -Necrosis Amt Medium (34-66%) -Necrotic Tissue Type Adherent Slough -Structure Exposed N/A -Texture (Neda-wound Skin Appearance) Assessed, Scarring -Moisture (Neda-wound Skin Appearance) Assessed -Color (Neda-wound Skin Appearance) Assessed -Temperature (Neda-wound Skin No Abnormality Appearance) (Pt Warm) -Tenderness on Palpation (Neda-wound No Skin Appearance) -Ulcer Cleansing Wound Cleanser -Foul Odor after Cleansing No WC - Nurse 2 - General Ulcer CM Notes Start: 08/06/23 15:43 Freq: Status: Active Protocol: Activity Type Activity Date Activity User E-sign Co-sign Detail Recorded Client Recorded Date Recorded By Document 08/06/23 16:23 MW Desktop 08/06/23 16:29 MW 08/06/23 16:23 Wound Center Nurse 2 -Time 16:25 -Correct Patient Yes -Correct Side, Site, Position Yes -Correct Procedure Yes -Procedure Performed Yes -Type of Procedure Debridement -Clinical Debridement Muscle / Fascia -Tissue Removed Muscle -Post Debridement (cm) - Length 2.7 -Post Debridement (cm) - Width 0.8 -Post Debridement (cm) - Depth 3.0 -Total Square (Post) (cm) 2.16 -Area of Debridement (cm) - Length 2.7 -Area of Debridement (cm) - Width 0.8 -Total Square (Area) (cm) 2.16 -Tunneling No -Undermining/Tunneling No -Circular Undermining No -Wound/Ulcer Outcome Not Healed -Ulcer Cleansing Rinsed/ Irrigated with Saline -Foul Odor after Cleansing No -Bioengineered Tissue No -Treatment Response Procedure Tolerated Well -Offloading No -Debridement - Muscle / Fascia, 1st Yes 20sq cm Pain Scale: 0-10 Numeric Is Patient Pain Free? Yes - Nurse 3 - General Ulcer D/C NN Start: 08/06/23 15:43 Freq: Status: Active Protocol: Activity Type Activity Date Activity User E-sign Co-sign Detail Recorded Client Recorded Date Recorded By Document 08/06/23 16:43 DL Desktop 08/06/23 16:45 DL 08/06/23 16:43 Wound Care Center Nurse 3 #1- sacral -Ulcer Cleansing Soap and Water -Foul Odor after Cleansing No -Other Dressing dakins -Primary Dressing Covered/Secured with Dry Gauze, Secured with Tape -Other Covering ABD Treatment Response Procedure Tolerated Well Pain Scale: 0-10 Numeric Is Patient Pain Free? Yes - Visit Discharge Discharge Condition Stable Ambulatory Status Wheelchair Transportation Private Auto Assessment/Plan Assessment/Plan (1) Sacral decubitus ulcer, stage IV: CODE(S): L89.154 - Pressure ulcer of sacral region, stage 4 (2) Osteomyelitis: CODE(S): M86.9 - Osteomyelitis, unspecified QUALIFIERS: Osteomyelitis type: other chronic Osteomyelitis location: other site Qualified Code(s): M86.68 - Other chronic osteomyelitis, other site (3) Immobility syndrome (paraplegic): CODE(S): M62.3 - Immobility syndrome (paraplegic) (4) Multiple sclerosis: CODE(S): G35 - Multiple sclerosis (5) Long-term current use of rituximab: CODE(S): Z79.620 - [facility] (current) use of immunosuppressive biologic (6) Former smoker: CODE(S): Z87.891 - Personal history of nicotine dependence PLAN: Plan Continue Dakin's 0.25% moistened gauze but will alternate with a Silver dressing to see if more healing can be seen. Kocuria kristinae in the bone is positive for osteomyelitis. It is significant and should be treated since it didn't show up in the soft tissue culture. She was placed on Augmentin per Infectious Diseases recommendation. She has finished the Augmentin. On 10/30/22, Prealbumin was 20.1. Encourage nutritional supplementation with protein to help the healing process. Last 2021 she had diagnosis of osteomyelitis. She was placed on IV antibiotics per Infectious Diseases for 6 weeks until January,. This is important because it establishes a timeline for chronic refractory osteomyelitis. She underwent HBO treatments (44 treatments) for chronic refractory osteomyelitis. The HBO treatments showed improvement in her ulcer as it has been noted with granulation tissue over the bone. Now that there is granulation tissue over the bone and the sides of the ulcer are showing some healing contraction, I would like to see some evidence of the healing getting more superficial. Hopefully the Silver dressing alternating with Dakin's dressing changes can improve the healing. Discussed a date in the future that would decide if more surgery is needed, another excision of the pressure ulcer along with partial ostectomy. The date will be September 23, 2023. If continued healing is noted, then will extend the date for another month. If another excision of the pressure ulcer is necessary, then will check the cultures and pathology to see what organisms are present so the appropriate antibiotics can be started before proceeding with closure of the ulcer with a myocutaneous flap. Patient voiced understanding. Followup 2 weeks
[2023-08-20 13:08] VITALS: BP 127/58; PULSE 86; RESP 20; TEMP 36.9; BMI 22.8
--- NOTE | 2023-08-20 14:12 | PN.PCM_ITS ---
History of Present Illness Date of Service: 08/20/23 Chief Complaint: Sacral pressure sore, Stage IV. History of Wound: Surgery 12/18/22 - Excision sacral pressure sore, Stage IV, with partial ostectomy for osteomyelitis. Wound care - Dakin's alternated with Silver dressings. Operative Culture - Corynebacterium striatum in the soft tissue and Kocuria kristinae in the bone. Was treated perioperatively with Augmentin and Flagyl for a preop culture positive for Enterococcus faecalis and Anaerobes. Kocuria kristinae in the bone is positive for osteomyelitis. It is significant and should be treated since it didn't show up in the soft tissue culture. She was placed on Augmentin and has finished them. Pathology - Negative for acute osteomyelitis. Chronic reparative and reactive change. Prealbumin from 10/30/22 was 20.1. Encourage nutritional supplementation with protein to help the healing process. MRI Pelvis from 08/21/22 - 2.8 cm decubitus ulcer at the base of the coccyx without discrete evidence of osteomyelitis. At her Wound Center visit on 02/10/23, she had urinary symptoms. A Urinalysis was done which did not report any WBC, and no Bacteria reported. The Leukocyte Esterase was 500. She was started on Cipro and has finished them. A Urine Culture showed Klebsiella pneumoniae. It is sensitive to Cipro. Today her urinary symptoms have resolved. In the Summer, 2021 she had diagnosis of osteomyelitis. She was placed on IV antibiotics per Infectious Diseases for 6 weeks until January,. This is important because it establishes a timeline for chronic refractory osteomyelitis. She underwent HBO treatments for chronic refractory osteomyelitis and tolerated the treatments. Today she denies fever. Her appetite is good. Progress of Wound: Slightly improved. Objective Data Objective Data Vital Signs: Vital Signs Temp Pulse Resp BP 98.4 F 86 20 H 127/58 H 08/20/23 13:08 08/20/23 13:08 08/20/23 13:08 08/20/23 13:08 Weight: 145 lb 9.6 oz Body Mass Index (BMI) 22.8 Prealbumin from 10/30/22 was 20.1. Encourage nutritional supplementation with protein to help the healing process. Lab / Micro Data Attestation: I reviewed the patient's lab results. Charges/Coding Procedures Integumentary 111xxx-113xx: [id number] Tran musc/fascia 20 sq cm/< (ICD-10 - L89.154, M86.9, M62.3, G35, Z79.620, Z87.891) Debridement Note Debridement Note Wound debrided: #1 Sacral area. Laterality: Not Applicable Wound Grade/Stage: IV. Type of Debridement: Excisional debridement Anesthesia Used: 5% Lidocaine Gel Depth: Down to and including healthy tissue, in the subcutaneous layer, to muscle and to bone (bone is palpable but not exposed.) Percentage of wound debrided: 100 Instrument Used: 3mm curette Tissue Removed: subcutaneous tissue and muscle. Severity: Fat Layer Exposed (muscle is exposed. Bone is palpable but not exposed.) Amount of bleeding with debridement: Mild Bleeding Controlled with: Pressure and Compression and gauze Patient tolerated procedure: Patient tolerated procedure well Post-Debridement Measurements and Additional Note: Post-Debridement Measurements/Treatment - Nurse 1 - General Ulcer Assessment Start: 08/06/23 15:43 Freq: Status: Active Protocol: BENIGNO Activity Type Activity Date Activity User E-sign Co-sign Detail Recorded Client Recorded Date Recorded By Document 08/06/23 15:43 RB Desktop 08/06/23 15:45 RB Document 08/20/23 13:08 DL Desktop 08/20/23 13:09 DL 08/06/23 08/20/23 15:43 13:08 - Today's Visit Information Type of service Follow-up Visit 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 ) ) Arrival Mode Wheelchair Wheelchair Transfer Assistance None None Patient Identification Verified (Name & Yes Yes ) Patient Requires Transmission-Based No No Precautions Height and Weight Body Mass Index (BMI) 22.8 22.8 BMI Classification Normal Normal Vital Signs Temperature (97.8 F-99.1 F) 97 F L 98.4 F Temperature Source Temporal Temporal Pulse Rate (60-100) 75 86 Pulse Location Monitor Monitor Respiratory Rate (12-18) 18 20 H Respiratory rate source Observation Observation Blood Pressure (90/60-120/80) 121/42 H 127/58 H Blood Pressure Mean (mm Hg) 68 81 Source Monitor Monitor Position Semi-Fowlers Blood Pressure Location Left Arm History Since Last Visit- (Skip if this is Patient's initial visit) Have you changed medications since your No No last visit? Any new allergies or adverse reactions No No Had a fall/change in ADL's that may No No increase risk of falls Signs or symptoms of abuse and/or No No neglect since last visit Have you been in the hospital since your No No last visit? Has dressing in place as prescribed Yes Yes Has compression in place as prescribed No N/A Has offloadiing in place as prescribed Yes Yes Experienced any changes in pain level or No No management Pain Scale: 0-10 Numeric Is Patient Pain Free? Yes Yes - Nurse 1 - General Ulcer Measurement Start: 08/06/23 15:43 Freq: Status: Active Protocol: Activity Type Activity Date Activity User E-sign Co-sign Detail Recorded Client Recorded Date Recorded By Document 08/06/23 15:43 RB Desktop 08/06/23 15:45 RB Document 08/20/23 13:08 DL Desktop 08/20/23 13:09 DL 08/06/23 08/20/23 15:43 13:08 Wound Center Nurse 1 #1- sacral -Combined with other wound No -Current Size (cm) - Length 0.7 1.4 -Current Size (cm) - Width 0.4 0.7 -Current Size (cm) - Depth 3.4 3.6 -Total Square Cm 0.28 0.98 -Tunneling No -Undermining/Tunneling No -Circular Undermining No -Exudate Amt Large Medium -Exudate Type Serosanguineous Serosanguineous -Wound Margin Thickened & Distinct, Rolled Under Outline Attached -Granulation Amt Medium (34-66%) Medium (34-66%) -Granulation Quality [place] -Slough/Fibrin Yes -Necrosis Amt Medium (34-66%) None Present (0 %) -Necrotic Tissue Type Adherent Slough -Structure Exposed N/A N/A -Texture (Neda-wound Skin Appearance) Assessed, Scarring Scarring -Moisture (Neda-wound Skin Appearance) Assessed No Abnormality -Color (Neda-wound Skin Appearance) Assessed No Abnormality -Temperature (Neda-wound Skin No Abnormality No Abnormality Appearance) (Pt Warm) (Pt Warm) -Tenderness on Palpation (Neda-wound No Skin Appearance) -Ulcer Cleansing Wound Cleanser Soap and Water -Foul Odor after Cleansing No No -Anesthetic Used 5% Lidocaine Gel WC - Nurse 2 - General Ulcer CM Notes Start: 08/06/23 15:43 Freq: Status: Active Protocol: Activity Type Activity Date Activity User E-sign Co-sign Detail Recorded Client Recorded Date Recorded By Document 08/06/23 16:23 MW Desktop 08/06/23 16:29 MW Document 08/20/23 13:58 MW Desktop 08/20/23 14:04 MW 08/06/23 08/20/23 16:23 13:58 Wound Center Nurse 2 #1- sacral -Time 16:25 14:00 -Correct Patient Yes Yes -Correct Side, Site, Position Yes Yes -Correct Procedure Yes Yes -Procedure Performed Yes Yes -Type of Procedure Debridement Debridement -Clinical Debridement Muscle / Fascia Muscle / Fascia -Tissue Removed Muscle Muscle,Fascia -Post Debridement (cm) - Length 2.7 1.6 -Post Debridement (cm) - Width 0.8 0.6 -Post Debridement (cm) - Depth 3.0 2.8 -Total Square (Post) (cm) 2.16 0.96 -Area of Debridement (cm) - Length 2.7 1.6 -Area of Debridement (cm) - Width 0.8 0.6 -Total Square (Area) (cm) 2.16 0.96 -Tunneling No No -Undermining/Tunneling No No -Circular Undermining No No -Wound/Ulcer Outcome Not Healed Not Healed -Ulcer Cleansing Rinsed/ Rinsed/ Irrigated with Irrigated with Saline Saline -Foul Odor after Cleansing No No -Bioengineered Tissue No No -Bleeding Controlled with Pressure -Treatment Response Procedure Procedure Tolerated Well Tolerated Well -Offloading No No -Debridement - Muscle / Fascia, 1st Yes Yes 20sq cm Pain Scale: 0-10 Numeric Is Patient Pain Free? Yes Yes WC - Nurse 3 - General Ulcer D/C NN Start: 08/06/23 15:43 Freq: Status: Active Protocol: Activity Type Activity Date Activity User E-sign Co-sign Detail Recorded Client Recorded Date Recorded By Document 08/06/23 16:43 DL Desktop 08/06/23 16:45 DL Document 08/20/23 14:11 KW Desktop 08/20/23 14:12 KW 08/06/23 08/20/23 16:43 14:11 Wound Care Center Nurse 3 #1- sacral -Ulcer Cleansing Soap and Water -Foul Odor after Cleansing No -Other Dressing dakins DAKINS SOAKED GAUZE -Primary Dressing Covered/Secured with Dry Gauze, Dry Gauze, Secured with Secured with Tape Tape -Other Covering ABD Treatment Response Procedure Tolerated Well Pain Scale: 0-10 Numeric Is Patient Pain Free? Yes Yes WC - Visit Discharge Discharge Condition Stable Stable Ambulatory Status Wheelchair Wheelchair Transportation Private Auto Private Auto Medication Reconcilliation completed & No provided to patient/care provider Clinical Summary of Care Provided Yes Assessment/Plan Assessment/Plan (1) Sacral decubitus ulcer, stage IV: CODE(S): L89.154 - Pressure ulcer of sacral region, stage 4 (2) Osteomyelitis: CODE(S): M86.9 - Osteomyelitis, unspecified QUALIFIERS: Osteomyelitis type: other chronic Osteomyelitis location: other site Qualified Code(s): M86.68 - Other chronic osteomyelitis, o ther site (3) Immobility syndrome (paraplegic): CODE(S): M62.3 - Immobility syndrome (paraplegic) (4) Multiple sclerosis: CODE(S): G35 - Multiple sclerosis (5) Long-term current use of rituximab: 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 Kocuria kristinae in the bone is positive for osteomyelitis. It is significant and should be treated since it didn't show up in the soft tissue culture. She was placed on Augmentin per Infectious Diseases recommendation. She has finished the Augmentin. On 10/30/22, Prealbumin was 20.1. Encourage nutritional supplementation with protein to help the healing process. Last 2021 she had diagnosis of osteomyelitis. She was placed on IV antibiotics per Infectious Diseases for 6 weeks until January,. This is important because it establishes a timeline for chronic refractory osteomyelitis. She underwent HBO treatments (44 treatments) for chronic refractory osteomyelitis. The HBO treatments showed improvement in her ulcer as it has been noted with granulation tissue over the bone. Now that there is granulation tissue over the bone and the sides of the ulcer are showing some healing contraction, I would like to see some evidence of the healing getting more superficial. Hopefully the Silver dressing alternating with Dakin's dressing changes can improve the healing. Discussed a date in the future that would decide if more surgery is needed, another excision of the pressure ulcer along with partial ostectomy. The date will be September 23, 2023. If continued healing is noted, then will extend the date for another month. If another excision of the pressure ulcer is necessar y, then will check the cultures and pathology to see what organisms are present so the appropriate antibiotics can be started before proceeding with closure of the ulcer with a myocutaneous flap. Patient voiced understanding. At this time she is not interested in a flap. If the skin tries to scar down more to make it harder to pack the wound, then I would release the scar tissue to make wound care easier. At this time, I am still able to get my fingers into the base of the wound. Followup 2 weeks.
== END 2023-08-24 23:59 | disposition home or self-care (01) ==
LOC: WC 13:00
PROVIDERS: PCP Family Medicine; Referring Provider Nurse Practitioner; Visit Provider Surgery
DX: L89.154 Pressure ulcer of sacral region, stage 4 (principal); G35 Multiple sclerosis; M86.68 Other chronic osteomyelitis, other site; M62.3 Immobility syndrome (paraplegic); Z87.891 Personal history of nicotine dependence; Z79.620 Long term (current) use of immunosuppressive biologic
CPT/HCPCS: 11043

== ENCOUNTER 2023-09-17 13:30 | Outpatient (RCR) | payer MEDICARE, SELFPAY ==
[2023-08-25 00:23] VITALS: BP 127/58; PULSE 86; RESP 20; TEMP 36.9; BMI 22.8
[2023-09-03 13:47] VITALS: BP 119/43; PULSE 72; RESP 18; TEMP 36.3; BMI 22.8
--- NOTE | 2023-09-03 17:02 | PCM.WC.PN ---
History of Present Illness Date of Service: 09/03/23 Chief Complaint: Sacral pressure sore, Stage IV. History of Wound: Surgery 12/18/22 - Excision sacral pressure sore, Stage IV, with partial ostectomy for osteomyelitis. Wound care - Dakin's alternated with Silver dressings. Operative Culture - Corynebacterium striatum in the soft tissue and Kocuria kristinae in the bone. Was treated perioperatively with Augmentin and Flagyl for a preop culture positive for Enterococcus faecalis and Anaerobes. Kocuria kristinae in the bone is positive for osteomyelitis. It is significant and should be treated since it didn't show up in the soft tissue culture. She was placed on Augmentin and has finished them. Pathology - Negative for acute osteomyelitis. Chronic reparative and reactive change. Prealbumin from 10/30/22 was 20.1. Encourage nutritional supplementation with protein to help the healing process. MRI Pelvis from 08/21/22 - 2.8 cm decubitus ulcer at the base of the coccyx without discrete evidence of osteomyelitis. At her Wound Center visit on 02/10/23, she had urinary symptoms. A Urinalysis was done which did not report any WBC, and no Bacteria reported. The Leukocyte Esterase was 500. She was started on Cipro and has finished them. A Urine Culture showed Klebsiella pneumoniae. It is sensitive to Cipro. Today her urinary symptoms have resolved. In the Summer, 2021 she had diagnosis of osteomyelitis. She was placed on IV antibiotics per Infectious Diseases for 6 weeks until January,. This is important because it establishes a timeline for chronic refractory osteomyelitis. She underwent HBO treatments for chronic refractory osteomyelitis and finished without problems. She tolerated the treatments. Today she denies fever. Her appetite is good. Progress of Wound: Slightly improved. The skin scarring is jessica more than I would like at this time. May have to excise some of that scarring to make the opening bigger which makes the wound care easier. Objective Data Objective Data Vital Signs: Vital Signs Temp Pulse Resp BP 97.4 F L 72 18 119/43 L 09/03/23 13:47 09/03/23 13:47 09/03/23 13:47 09/03/23 13:47 Weight: 145 lb 9.6 oz Body Mass Index (BMI) 22.8 Prealbumin from 10/30/22 was 20.1. Encourage nutritional supplementation with protein to help the healing process. Lab / Micro Data Attestation: I reviewed the patient's lab results. Charges/Coding Procedures Integumentary 111xxx-113xx: 33712 Tran musc/fascia 20 sq cm/< (ICD-10 - L89.154, M86.9, M62.3, G35, Z79.620, Z87.891) Debridement Note Debridement Note Wound debrided: #1 Sacral area. Laterality: Not Applicable Wound Grade/Stage: IV. Type of Debridement: Excisional debridement Anesthesia Used: 5% Lidocaine Gel Depth: Down to and including healthy tissue, in the subcutaneous layer, to muscle and to bone (bone is palpable but not exposed.) Percentage of wound debrided: 100 Instrument Used: 3mm curette Tissue Removed: subcutaneous tissue and muscle. Severity: Fat Layer Exposed (muscle is exposed. Bone is palpable but not exposed.) Amount of bleeding with debridement: Mild Bleeding Controlled with: Pressure and Compression and gauze Patient tolerated procedure: Patient tolerated procedure well Post-Debridement Measurements and Additional Note: Post-Debridement Measurements/Treatment - Nurse 1 - General Ulcer Assessment Start: 09/03/23 13:47 Freq: Status: Active Protocol: [email or web address].[email or web address] Activity Type Activity Date Activity User E-sign Co-sign Detail Recorded Client Recorded Date Recorded By Document 09/03/23 13:47 DL Desktop 09/03/23 13:57 DL 09/03/23 13:47 - Today's Visit Information Type of service Follow-up Visit (Physician/PARACHUTE PANEL JOINER ) Arrival Mode Wheelchair Transfer Assistance Manual Transfer Assist (Other) x1 Patient Identification Verified (Name & Yes ) Patient Requires Transmission-Based No Precautions Height and Weight Body Mass Index (BMI) 22.8 BMI Classification Normal Vital Signs Temperature (97.8 F-99.1 F) 97.4 F L Temperature Source Temporal Pulse Rate (60-100) 72 Pulse Location Monitor Respiratory Rate (12-18) 18 Respiratory rate source Observation Blood Pressure (90/60-120/80) 119/43 L Blood Pressure Mean (mm Hg) 68 Source Monitor History Since Last Visit- (Skip if this is Patient's initial visit) Have you changed medications since your No last visit? Any new allergies or adverse reactions No Had a fall/change in ADL's that may No increase risk of falls Signs or symptoms of abuse and/or No neglect since last visit Have you been in the hospital since your No last visit? Has dressing in place as prescribed Yes Has compression in place as prescribed N/A Has offloadiing in place as prescribed Yes Experienced any changes in pain level or No management Pain Scale: 0-10 Numeric Is Patient Pain Free? Yes WC - Nurse 1 - General Ulcer Measurement Start: 09/03/23 13:47 Freq: Status: Active Protocol: Activity Type Activity Date Activity User E-sign Co-sign Detail Recorded Client Recorded Date Recorded By Document 09/03/23 13:47 DL Desktop 09/03/23 13:57 DL 09/03/23 13:47 Wound Center Nurse 1 #1- sacral -Current Size (cm) - Length 1 -Current Size (cm) - Width 0.8 -Current Size (cm) - Depth 3.4 -Total Square Cm 0.8 -Tunneling Position (O'clock) 12 -Tunneling Distance (cm) 1.5 -Exudate Amt Small -Exudate Type Serosanguineous -Wound Margin Distinct, Outline Attached -Granulation Amt Medium (34-66%) -Granulation Quality [place] -Necrosis Amt Medium (34-66%) -Necrotic Tissue Type Adherent Slough -Structure Exposed N/A -Texture (Neda-wound Skin Appearance) Scarring -Moisture (Neda-wound Skin Appearance) No Abnormality -Color (Neda-wound Skin Appearance) No Abnormality -Temperature (Neda-wound Skin No Abnormality Appearance) (Pt Warm) -Ulcer Cleansing Rinsed/ Irrigated with Saline -Foul Odor after Cleansing No WC - Nurse 2 - General Ulcer CM Notes Start: 09/03/23 13:47 Freq: Status: Active Protocol: Activity Type Activity Date Activity User E-sign Co-sign Detail Recorded Client Recorded Date Recorded By Document 09/03/23 14:04 MW Desktop 09/03/23 14:10 MW 09/03/23 14:04 Wound Center Nurse 2 -Time 14:04 -Correct Patient Yes -Correct Side, Site, Position Yes -Correct Procedure Yes -Procedure Performed Yes -Type of Procedure Debridement -Clinical Debridement Muscle / Fascia -Tissue Removed Muscle,Fascia -Post Debridement (cm) - Length 2.0 -Post Debridement (cm) - Width 0.5 -Post Debridement (cm) - Depth 2.9 -Total Square (Post) (cm) 1.00 -Area of Debridement (cm) - Length 2.0 -Area of Debridement (cm) - Width 0.5 -Total Square (Area) (cm) 1.00 -Tunneling No -Undermining/Tunneling No -Circular Undermining No -Wound/Ulcer Outcome Not Healed -Ulcer Cleansing Rinsed/ Irrigated with Saline -Foul Odor after Cleansing No -Bioengineered Tissue No -Bleeding Controlled with Pressure -Treatment Response Procedure Tolerated Well -Offloading No -Debridement - Muscle / Fascia, 1st Yes 20sq cm Pain Scale: 0-10 Numeric Is Patient Pain Free? Yes - Nurse 3 - General Ulcer D/C NN Start: 09/03/23 13:47 Freq: Status: Active Protocol: Activity Type Activity Date Activity User E-sign Co-sign Detail Recorded Client Recorded Date Recorded By Document 09/03/23 14:40 DL Desktop 09/03/23 14:41 DL 09/03/23 14:40 Wound Care Center Nurse 3 #1- sacral -Ulcer Cleansing Rinsed/ Irrigated with Saline -Foul Odor after Cleansing No -Other Dressing dakins -Primary Dressing Covered/Secured with Dry Gauze & Roll Gauze, Secured with Tape Treatment Response Procedure Tolerated Well Pain Scale: 0-10 Numeric Is Patient Pain Free? Yes - Visit Discharge Discharge Condition Stable Ambulatory Status Wheelchair Transportation Private Auto Assessment/Plan Assessment/Plan (1) Sacral decubitus ulcer, stage IV: CODE(S): L89.154 - Pressure ulcer of sacral region, stage 4 (2) Osteomyelitis: CODE(S): M86.9 - Osteomyelitis, unspecified QUALIFIERS: Osteomyelitis type: other chronic Osteomyelitis location: other site Qualified Code(s): M86.68 - Other chronic osteomyelitis, other site (3) Immobility syndrome (paraplegic): CODE(S): M62.3 - Immobility syndrome (paraplegic) (4) Multiple sclerosis: CODE(S): G35 - Multiple sclerosis (5) Long-term current use of rituximab: CODE(S): Z79.620 - long term care social worker (current) use of immunosuppressive biologic (6) Former smoker: CODE(S): Z87.891 - Personal history of nicotine dependence PLAN: Plan Continue Dakin's 0.25% moistened gauze but will alternate with a Silver dressing to see if more healing can be seen. Kocuria kristinae in the bone is positive for osteomyelitis. It is significant and should be treated since it didn't show up in the soft tissue culture. She was placed on Augmentin per Infectious Diseases recommendation. She has finished the Augmentin. On 10/30/22, Prealbumin was 20.1. Encourage nutritional supplementation with protein to help the healing process. Last 2021 she had diagnosis of osteomyelitis. She was placed on IV antibiotics per Infectious Diseases for 6 weeks until January,. This is important because it establishes a timeline for chronic refractory osteomyelitis. She underwent HBO treatments (44 treatments) for chronic refractory osteomyelitis. The HBO treatments showed improvement in her ulcer as it has been noted with granulation tissue over the bone. Now that there is granulation tissue over the bone and the sides of the ulcer are showing some healing contraction, I would like to see some evidence of the healing getting more superficial. Hopefully the Silver dressing alternating with Dakin's dressing changes can improve the healing. Discussed a date in the future that would decide if more surgery is needed, another excision of the pressure ulcer along with partial ostectomy. The date will be September 23, 2023. If continued healing is noted, then will extend the date for another month. If another excision of the pressure ulcer is necessary, then will check the cultures and pathology to see what organisms are present so the appropriate antibiotics can be started before proceeding with closure of the ulcer with a myocutaneous flap. Patient voiced understanding. At this time she is not interested in a flap. If the skin tries to scar down more to make it harder to pack the wound, then I would release the scar tissue to make wound care easier. At this time, I am still able to get my fingers into the base of the wound. Followup 2 weeks.
[2023-09-17 13:28] VITALS: BP 110/61; PULSE 85; RESP 20; TEMP 36.6; BMI 22.8
--- NOTE | 2023-09-17 16:05 | PCM.WC.PN ---
History of Present Illness Date of Service: 09/17/23 Chief Complaint: Sacral pressure sore, Stage IV. History of Wound: Surgery 12/18/22 - Excision sacral pressure sore, Stage IV, with partial ostectomy for osteomyelitis. Wound care - Dakin's alternated with Silver dressings. Operative Culture - Corynebacterium striatum in the soft tissue and Kocuria kristinae in the bone. Was treated perioperatively with Augmentin and Flagyl for a preop culture positive for Enterococcus faecalis and Anaerobes. Kocuria kristinae in the bone is positive for osteomyelitis. It is significant and should be treated since it didn't show up in the soft tissue culture. She was placed on Augmentin and has finished them. Pathology - Negative for acute osteomyelitis. Chronic reparative and reactive change. Prealbumin from 10/30/22 was 20.1. Encourage nutritional supplementation with protein to help the healing process. MRI Pelvis from 08/21/22 - 2.8 cm decubitus ulcer at the base of the coccyx without discrete evidence of osteomyelitis. At her Wound Center visit on 02/10/23, she had urinary symptoms. A Urinalysis was done which did not report any WBC, and no Bacteria reported. The Leukocyte Esterase was 500. She was started on Cipro and has finished them. A Urine Culture showed Klebsiella pneumoniae. It is sensitive to Cipro. Today her urinary symptoms have resolved. In the Summer, 2021 she had diagnosis of osteomyelitis. She was placed on IV antibiotics per Infectious Diseases for 6 weeks until January,. This is important because it establishes a timeline for chronic refractory osteomyelitis. She underwent HBO treatments for chronic refractory osteomyelitis and finished without problems. She tolerated the treatments. Today she denies fever. Her appetite is good. Progress of Wound: Slightly improved. The skin scarring is jessica more than I would like at this time. She states she is able to do her wound care, but I am having a difficult time palpating the ulcer/tunnel area. She would benefit having the scarring excised to make the opening bigger which makes the wound care easier. I would prefer to have Dr. Gregory do this next week. Objective Data Objective Data Vital Signs: Vital Signs Temp Pulse Resp BP 98 F 85 20 H 110/61 09/17/23 13:28 09/17/23 13:28 09/17/23 13:28 09/17/23 13:28 Weight: 145 lb 9.6 oz Body Mass Index (BMI) 22.8 Charges/Coding Procedures Integumentary 111xxx-113xx: 83460 Tran musc/fascia 20 sq cm/< (ICD-10 - L89.154, M86.9, M62.3, G35, Z79.620, Z87.891) Debridement Note Debridement Note Wound debrided: #1 Sacral area. Laterality: Not Applicable Wound Grade/Stage: IV. Type of Debridement: Excisional debridement Anesthesia Used: 5% Lidocaine Gel Depth: Down to and including healthy tissue, in the subcutaneous layer, to muscle and to bone (bone is palpable but not exposed.) Percentage of wound debrided: 100 Instrument Used: 3mm curette Tissue Removed: subcutaneous tissue and muscle. Severity: Fat Layer Exposed (muscle is exposed. Bone is palpable but not exposed.) Amount of bleeding with debridement: Mild Bleeding Controlled with: Pressure and Compression and gauze Patient tolerated procedure: Patient tolerated procedure well Debridement Free Text: Bone is palpated but covered. Post-Debridement Measurements and Additional Note: Post-Debridement Measurements/Treatment - Nurse 1 - General Ulcer Assessment Start: 09/03/23 13:47 Freq: Status: Active Protocol: .LOWEXKaushik Activity Type Activity Date Activity User E-sign Co-sign Detail Recorded Client Recorded Date Recorded By Document 09/03/23 13:47 DL Desktop 09/03/23 13:57 DL Document 09/17/23 13:28 DL Desktop 09/17/23 13:33 DL 09/03/23 09/17/23 13:47 13:28 - Today's Visit Information Type of service Follow-up Visit Follow-up Visit (Physician/MOTOR CHECKER (Physician/MOTOR CHECKER ) ) Arrival Mode Wheelchair Wheelchair Transfer Assistance Manual Manual Transfer Assist (Other) x1 x1 Patient Identification Verified (Name & Yes Yes ) Patient Requires Transmission-Based No No Precautions Height and Weight Body Mass Index (BMI) 22.8 22.8 BMI Classification Normal Normal Vital Signs Temperature (97.8 F-99.1 F) 97.4 F L 98 F Temperature Source Temporal Temporal Pulse Rate (60-100) 72 85 Pulse Location Monitor Monitor Respiratory Rate (12-18) 18 20 H Respiratory rate source Observation Observation Blood Pressure (90/60-120/80) 119/43 L 110/61 Blood Pressure Mean (mm Hg) 68 77 Source Monitor Monitor History Since Last Visit- (Skip if this is Patient's initial visit) Have you changed medications since your No No last visit? Any new allergies or adverse reactions No No Had a fall/change in ADL's that may No No increase risk of falls Signs or symptoms of abuse and/or No No neglect since last visit Have you been in the hospital since your No No last visit? Has dressing in place as prescribed Yes Yes Has compression in place as prescribed N/A N/A Has offloadiing in place as prescribed Yes Yes Experienced any changes in pain level or No No management Pain Scale: 0-10 Numeric Is Patient Pain Free? Yes Yes WC - Nurse 1 - General Ulcer Measurement Start: 09/03/23 13:47 Freq: Status: Active Protocol: Activity Type Activity Date Activity User E-sign Co-sign Detail Recorded Client Recorded Date Recorded By Document 09/03/23 13:47 DL Desktop 09/03/23 13:57 DL Document 09/17/23 13:28 DL Desktop 09/17/23 13:33 DL 09/03/23 09/17/23 13:47 13:28 Wound Center Nurse 1 #1- sacral -Current Size (cm) - Length 1 1 -Current Size (cm) - Width 0.8 0.5 -Current Size (cm) - Depth 3.4 3.1 -Total Square Cm 0.8 0.5 -Tunneling Position (O'clock) 12 -Tunneling Distance (cm) 1.5 -Exudate Amt Small Small -Exudate Type Serosanguineous Serosanguineous -Wound Margin Distinct, Distinct, Outline Outline Attached Attached -Granulation Amt Medium (34-66%) Large (67-100%) -Granulation Quality [place] -Necrosis Amt Medium (34-66%) None Present (0 %) -Necrotic Tissue Type Adherent Slough -Structure Exposed N/A N/A -Texture (Neda-wound Skin Appearance) Scarring Scarring -Moisture (Neda-wound Skin Appearance) No Abnormality No Abnormality -Color (Neda-wound Skin Appearance) No Abnormality No Abnormality -Temperature (Neda-wound Skin No Abnormality No Abnormality Appearance) (Pt Warm) (Pt Warm) -Ulcer Cleansing Rinsed/ Soap and Water Irrigated with Saline -Foul Odor after Cleansing No No WC - Nurse 2 - General Ulcer CM Notes Start: 09/03/23 13:47 Freq: Status: Active Protocol: Activity Type Activity Date Activity User E-sign Co-sign Detail Recorded Client Recorded Date Recorded By Document 09/03/23 14:04 MW Desktop 09/03/23 14:10 MW Document 09/17/23 14:07 MW Desktop 09/17/23 14:14 MW 09/03/23 09/17/23 14:04 14:07 Wound Center Nurse 2 #1- sacral -Time 14:04 14:07 -Correct Patient Yes Yes -Correct Side, Site, Position Yes Yes -Correct Procedure Yes Yes -Procedure Performed Yes Yes -Type of Procedure Debridement Debridement -Clinical Debridement Muscle / Fascia Muscle / Fascia -Tissue Removed Muscle,Fascia Muscle -Post Debridement (cm) - Length 2.0 1.5 -Post Debridement (cm) - Width 0.5 0.8 -Post Debridement (cm) - Depth 2.9 2.5 -Total Square (Post) (cm) 1.00 1.20 -Area of Debridement (cm) - Length 2.0 1.5 -Area of Debridement (cm) - Width 0.5 0.8 -Total Square (Area) (cm) 1.00 1.20 -Tunneling No Yes -Tunneling Position (O'clock) 12 -Tunneling Distance (cm) 3.5 -Undermining/Tunneling No No -Circular Undermining No No -Wound/Ulcer Outcome Not Healed Not Healed -Ulcer Cleansing Rinsed/ Rinsed/ Irrigated with Irrigated with Saline Saline -Foul Odor after Cleansing No No -Bioengineered Tissue No No -Bleeding Controlled with Pressure Pressure -Treatment Response Procedure Procedure Tolerated Well Tolerated Well -Offloading No No -Debridement - Muscle / Fascia, 1st Yes Yes 20sq cm Pain Scale: 0-10 Numeric Is Patient Pain Free? Yes Yes WC - Nurse 3 - General Ulcer D/C NN Start: 09/03/23 13:47 Freq: Status: Active Protocol: Activity Type Activity Date Activity User E-sign Co-sign Detail Recorded Client Recorded Date Recorded By Document 09/03/23 14:40 DL Desktop 09/03/23 14:41 DL 09/03/23 14:40 Wound Care Center Nurse 3 #1- sacral -Ulcer Cleansing Rinsed/ Irrigated with Saline -Foul Odor after Cleansing No -Other Dressing dakins -Primary Dressing Covered/Secured with Dry Gauze & Roll Gauze, Secured with Tape Treatment Response Procedure Tolerated Well Pain Scale: 0-10 Numeric Is Patient Pain Free? Yes WC - Visit Discharge Discharge Condition Stable Ambulatory Status Wheelchair Transportation Private Auto Assessment/Plan Assessment/Plan (1) Sacral decubitus ulcer, stage IV: CODE(S): L89.154 - Pressure ulcer of sacral region, stage 4 (2) Osteomyelitis: CODE(S): M86.9 - Osteomyelitis, unspecified QUALIFIERS: Osteomyelitis type: other chronic Osteomyelitis location: other site Qualified Code(s): M86.68 - Other chronic osteomyelitis, other site (3) Immobility syndrome (paraplegic): CODE(S): M62.3 - Immobility syndrome (paraplegic) (4) Multiple sclerosis: CODE(S): G35 - Multiple sclerosis (5) Long-term current use of rituximab: CODE(S): Z79.620 - group home (current) use of immunosuppressive biologic (6) Former smoker: CODE(S): Z87.891 - Personal history of nicotine dependence PLAN: Plan Wound care - Dakin's 0.25% moistened gauze but alternate with a Silver dressing covered with gauze/ABD. Kocuria kristinae in the bone is positive for osteomyelitis. It is significant and should be treated since it didn't show up in the soft tissue culture. She was placed on Augmentin per Infectious Diseases recommendation. She has finished the Augmentin. On 10/30/22, Prealbumin was 20.1. Encourage nutritional supplementation with protein to help the healing process. Last 2021 she had diagnosis of osteomyelitis. She was placed on IV antibiotics per Infectious Diseases for 6 weeks until January,. This is important because it establishes a timeline for chronic refractory osteomyelitis. She underwent HBO treatments (44 treatments) for chronic refractory osteomyelitis. The HBO treatments showed improvement in her ulcer as it has been noted with granulation tissue over the bone. Now that there is granulation tissue over the bone and the sides of the ulcer are showing some healing contraction, I would like to see some evidence of the healing getting more superficial. Hopefully the Silver dressing alternating with Dakin's dressing changes can improve the healing. Discussed a date in the future that would decide if more surgery is needed, another excision of the pressure ulcer along with partial ostectomy. The date will be September 23, 2023. If continued healing is noted, then will extend the date for another month. If another excision of the pressure ulcer is necessary, then will check the cultures and pathology to see what organisms are present so the appropriate antibiotics can be started before proceeding with closure of the ulcer with a myocutaneous flap. Patient voiced understanding. At this time she is not interested in a flap. If the skin tries to scar down more to make it harder to pack the wound, then I would release the scar tissue to make wound care easier. At this time, I am still able to get my fingers into the base of the wound. Followup 1 week. Will have her evaluated by Dr. Gregory to try to excise some of the scar tissue to help make wound care easier.
== END 2023-09-23 23:59 | disposition home or self-care (01) ==
LOC: WC 13:30
PROVIDERS: PCP Family Medicine; Referring Provider Nurse Practitioner; Visit Provider Surgery
DX: L89.154 Pressure ulcer of sacral region, stage 4 (principal); G35 Multiple sclerosis; M86.68 Other chronic osteomyelitis, other site; M62.3 Immobility syndrome (paraplegic); Z79.620 Long term (current) use of immunosuppressive biologic; Z87.891 Personal history of nicotine dependence
CPT/HCPCS: 11043

== ENCOUNTER 2023-10-22 15:00 | Outpatient (RCR) | payer MEDICARE, SELFPAY ==
[2023-09-24 00:18] VITALS: BP 110/61; PULSE 85; RESP 20; TEMP 36.6; BMI 22.8
[2023-10-01 15:07] VITALS: BP 112/42; PULSE 87; RESP 16; TEMP 36.5; BMI 22.8
--- NOTE | 2023-10-01 16:05 | PN.PCM_ITS ---
History of Present Illness Date of Service: 10/01/23 Chief Complaint: Sacral pressure sore, Stage IV. History of Wound: Surgery 12/18/22 - Excision sacral pressure sore, Stage IV, with partial ostectomy for osteomyelitis. Wound care - Dakin's alternated with Silver dressings. Operative Culture - Corynebacterium striatum in the soft tissue and Kocuria kristinae in the bone. Was treated perioperatively with Augmentin and Flagyl for a preop culture positive for Enterococcus faecalis and Anaerobes. Kocuria kristinae in the bone is positive for osteomyelitis. It is significant and should be treated since it didn't show up in the soft tissue culture. She was placed on Augmentin and has finished them. Pathology - Negative for acute osteomyelitis. Chronic reparative and reactive change. Prealbumin from 10/30/22 was 20.1. Encourage nutritional supplementation with protein to help the healing process. MRI Pelvis from 08/21/22 - 2.8 cm decubitus ulcer at the base of the coccyx without discrete evidence of osteomyelitis. At her Wound Center visit on 02/10/23, she had urinary symptoms. A Urinalysis was done which did not report any WBC, and no Bacteria reported. The Leukocyte Esterase was 500. She was started on Cipro and has finished them. A Urine Culture showed Klebsiella pneumoniae. It is sensitive to Cipro. Today her urinary symptoms have resolved. In the Summer, 2021 she had diagnosis of osteomyelitis. She was placed on IV antibiotics per Infectious Diseases for 6 weeks until January,. This is important because it establishes a timeline for chronic refractory osteomyelitis. She underwent HBO treatments for chronic refractory osteomyelitis and finished without problems. She tolerated the treatments. Today she denies fever. Her appetite is good. Progress of Wound: The opening of the ulcer is jessica more than I would like at this time. She is starting to have issues doing her wound care, because it is becoming difficult to pack into the base of the wound. I am not able to palpate into the ulcer due to the amount of scar tissue closing the opening. Objective Data Objective Data Vital Signs: Vital Signs Temp Pulse Resp BP O2 Del Method 97.7 F L 87 16 112/42 L Room Air 10/01/23 15:10/01/23 15:10/01/23 15:10/01/23 15:10/01/23 15:07 Oxygen Delivery Method Room Air Weight: 145 lb 9.6 oz Body Mass Index (BMI) 22.8 Charges/Coding Procedures Integumentary 111xxx-113xx: 21548 Tran musc/fascia 20 sq cm/< (ICD-10 - L89.154, M86.9, M62.3, G35, Z79.620, Z87.891) Debridement Note Debridement Note Wound debrided: #1 Sacral area. Laterality: Not Applicable Wound Grade/Stage: IV. Type of Debridement: Excisional debridement Anesthesia Used: 5% Lidocaine Gel Depth: Down to and including healthy tissue, in the subcutaneous layer, to muscle and to bone (bone is palpable but not exposed.) Percentage of wound debrided: 100 Instrument Used: 5mm curette and #11 blade Tissue Removed: subcutaneous tissue and muscle. Severity: Fat Layer Exposed (muscle is exposed. Bone is palpable but not exposed.) Amount of bleeding with debridement: Mild Bleeding Controlled with: Pressure and Compression and gauze Patient tolerated procedure: Patient tolerated procedure well Debridement Free Text: Injected 3-4 cc of Lidocaine 1 %/epi. After waiting 10 minutes, using an 11 blade and pickups, I made an ellipse around the ulcer opening to make it easier to to do wound care. Used pressure and silver nitrate to help control the bleeding. Used #7 curette to debride the base of the ulcer. Post-Debridement Measurements and Additional Note: Post-Debridement Measurements/Treatment - Nurse 1 - General Ulcer Assessment Start: 10/01/23 15:07 Freq: Status: Active Protocol: BENIGNO Activity Type Activity Date Activity User E-sign Co-sign Detail Recorded Client Recorded Date Recorded By Document 10/01/23 15:07 [facility] Desktop 10/01/23 15:16 [facility] 10/01/23 15:07 - Today's Visit Information Type of service Follow-up Visit (Physician/MILITARY SCIENCE INSTRUCTOR ) Arrival Mode Wheelchair Transfer Assistance Other Transfer Assist (Other) 1 Patient Identification Verified (Name & Yes ) Patient Requires Transmission-Based No Precautions Height and Weight Body Mass Index (BMI) 22.8 BMI Classification Normal Vital Signs Temperature (97.8 F-99.1 F) 97.7 F L Temperature Source Temporal Pulse Rate (60-100) 87 Pulse Location Monitor Respiratory Rate (12-18) 16 Respiratory rate source Observation Oxygen Delivery Method Room Air Blood Pressure (90/60-120/80) 112/42 L Blood Pressure Mean (mm Hg) 65 Source Monitor Position Sitting Blood Pressure Location Left Arm History Since Last Visit- (Skip if this is Patient's initial visit) Have you changed medications since your No last visit? Any new allergies or adverse reactions No Had a fall/change in ADL's that may No increase risk of falls Signs or symptoms of abuse and/or No neglect since last visit Have you been in the hospital since your No last visit? Has dressing in place as prescribed Yes Has compression in place as prescribed No Has offloadiing in place as prescribed No Experienced any changes in pain level or No management Pain Scale: 0-10 Numeric Is Patient Pain Free? Yes DEBBI - Nurse 1 - General Ulcer Measurement Start: 10/01/23 15:07 Freq: Status: Active Protocol: Activity Type Activity Date Activity User E-sign Co-sign Detail Recorded Client Recorded Date Recorded By Document 10/01/23 15:07 [facility] Desktop 10/01/23 15:16 [facility] 10/01/23 15:07 Wound Center Nurse 1 #1- sacral -Combined with other wound No -Current Size (cm) - Length 0.7 -Current Size (cm) - Width 0.3 -Current Size (cm) - Depth 3.5 -Total Square Cm 0.21 -Tunneling Yes -Tunneling Position (O'clock) 12 -Tunneling Distance (cm) 3.4 -Undermining/Tunneling No -Circular Undermining No -Exudate Amt Large -Exudate Type Serosanguineous -Wound Margin Thickened & Rolled Under -Granulation Amt Medium (34-66%) -Granulation Quality [place] -Slough/Fibrin Yes -Necrosis Amt Medium (34-66%) -Necrotic Tissue Type Adherent Slough -Structure Exposed N/A -Texture (Neda-wound Skin Appearance) Assessed, Scarring -Moisture (Neda-wound Skin Appearance) Assessed -Color (Neda-wound Skin Appearance) Assessed -Temperature (Neda-wound Skin No Abnormality Appearance) (Pt Warm) -Tenderness on Palpation (Neda-wound No Skin Appearance) -Ulcer Cleansing Wound Cleanser -Foul Odor after Cleansing No WC - Nurse 2 - General Ulcer CM Notes Start: 10/01/23 15:07 Freq: Status: Active Protocol: Activity Type Activity Date Activity User E-sign Co-sign Detail Recorded Client Recorded Date Recorded By Document 10/01/23 15:22 [facility] Desktop 10/01/23 15:42 GM Edit Result 10/01/23 15:22 GM (1) Desktop 10/01/23 15:46 GM (1) #1- sacral - Clinical Debridement Subcutaneous => Muscle / Fascia - Tissue Removed Subcutaneous => Muscle - Debridement - Subq, 1st 20sq cm Yes => - Debridement - Muscle / Fascia, 1st => Yes 20sq cm 10/01/23 15:22 Wound Center Nurse 2 -Time 15:25 -Correct Patient Yes -Correct Side, Site, Position Yes -Correct Procedure Yes -Procedure Performed Yes -Type of Procedure Debridement -Clinical Debridement Muscle / Fascia -Tissue Removed Muscle -Post Debridement (cm) - Length 2.0 -Post Debridement (cm) - Width 0.8 -Post Debridement (cm) - Depth 3.2 -Total Square (Post) (cm) 1.60 -Area of Debridement (cm) - Length 2.0 -Area of Debridement (cm) - Width 0.8 -Total Square (Area) (cm) 1.60 -Tunneling Yes -Tunneling Position (O'clock) 12 -Tunneling Distance (cm) 3.5 -Circular Undermining No -Wound/Ulcer Outcome Not Healed -Ulcer Cleansing Rinsed/ Irrigated with Saline -Foul Odor after Cleansing No -Bioengineered Tissue No -Bleeding Controlled with Pressure,Silver Nitrate -Treatment Response Procedure Tolerated Well -Assistive Device(s) Wheelchair -Pressure Reduction Wheelchair cushion -Debridement - Muscle / Fascia, 1st Yes 20sq cm Pain Scale: 0-10 Numeric Is Patient Pain Free? Yes WC - Nurse 3 - General Ulcer D/C NN Start: 10/01/23 15:07 Freq: Status: Active Protocol: Activity Type Activity Date Activity User E-sign Co-sign Detail Recorded Client Recorded Date Recorded By Document 10/01/23 15:50 [facility] Desktop 10/01/23 15:53 [facility] 10/01/23 15:50 Wound Care Center Nurse 3 #1- sacral -Ulcer Cleansing Rinsed/ Irrigated with Saline -Foul Odor after Cleansing No -Primary Dressing Applied Aquacel AG 4x4 -Other Dressing PER RB RN -Primary Dressing Covered/Secured with Dry Gauze, Secured with Tape -Other Covering ABD -Aquacel AG 4x4 1 Treatment Response Procedure Tolerated Well Pain Scale: 0-10 Numeric Is Patient Pain Free? Yes WC - Visit Discharge Discharge Condition Stable Ambulatory Status Wheelchair Transportation Private Auto Assessment/Plan Assessment/Plan (1) Sacral decubitus ulcer, stage IV: CODE(S): L89.154 - Pressure ulcer of sacral region, stage 4 (2) Osteomyelitis: CODE(S): M86.9 - Osteomyelitis, unspecified QUALIFIERS: Osteomyelitis type: other chronic Osteomyelitis location: other site Qualified Code(s): M86.68 - Other chronic osteomyelitis, other site (3) Immobility syndrome (paraplegic): CODE(S): M62.3 - Immobility syndrome (paraplegic) (4) Multiple sclerosis: CODE(S): G35 - Multiple sclerosis (5) Long-term current use of rituximab: CODE(S): Z79.620 - long-term (current) use of immunosuppressive biologic (6) Former smoker: CODE(S): Z87.891 - Personal history of nicotine dependence PLAN: Plan Patient evaluated at the wound healing center today. Removed some scar tissue from the opening of the ulcer in order to make wound care easier. Wound care - Dakin's 0.25% moistened gauze but alternate every other day with a Silver dressing covered with gauze/ABD. Kocuria kristinae in the bone is positive for osteomyelitis. It is significant and should be treated since it didn't show up in the soft tissue culture. She was placed on Augmentin per Infectious Diseases recommendation. She has finished the Augmentin. On 10/30/22, Prealbumin was 20.1. Encourage nutritional supplementation with protein to help the healing process. Last 2021 she had diagnosis of osteomyelitis. She was placed on IV antibiotics per Infectious Diseases for 6 weeks until January,. This is important because it establishes a timeline for chronic refractory osteomyelitis. She underwent HBO treatments (44 treatments) for chronic refractory osteomyelitis. The HBO treatments showed improvement in her ulcer as it has been noted with granulation tissue over the bone. Now that there is granulation tissue over the bone and the sides of the ulcer are showing some healing contraction, I would like to see some evidence of the healing getting more superficial. Hopefully the Silver dressing alternating with Dakin's dressing changes can improve the healing. Discussed a date in the future that would decide if more surgery is needed, another excision of the pressure ulcer along with partial ostectomy. The date will be September 23, 2023. If continued healing is noted, then will extend the date for another month. If another excision of the pressure ulcer is necessary, then will check the cultures and pathology to see what organisms are present so the appropriate antibiotics can be started before proceeding with closure of the ulcer with a myocutaneous flap. Patient voiced understanding. At this time she is not interested in a flap. If the skin tries to scar down more to make it harder to pack the wound, then I would release the scar tissue to make wound care easier. At this time, I am still able to get my fingers into the base of the wound. Followup 2 weeks.
[2023-10-22 15:11] VITALS: BP 117/69; PULSE 75; RESP 16; TEMP 36.8; BMI 22.8
--- NOTE | 2023-10-22 17:08 | PCM.WC.PN ---
History of Present Illness Date of Service: 10/22/23 Chief Complaint: Sacral pressure sore, Stage IV. History of Wound: Surgery 12/18/22 - Excision sacral pressure sore, Stage IV, with partial ostectomy for osteomyelitis. Wound care - Dakin's alternated with Silver dressings. Operative Culture - Corynebacterium striatum in the soft tissue and Kocuria kristinae in the bone. Was treated perioperatively with Augmentin and Flagyl for a preop culture positive for Enterococcus faecalis and Anaerobes. Kocuria kristinae in the bone is positive for osteomyelitis. It is significant and should be treated since it didn't show up in the soft tissue culture. She was placed on Augmentin and has finished them. Pathology - Negative for acute osteomyelitis. Chronic reparative and reactive change. Prealbumin from 10/30/22 was 20.1. Encourage nutritional supplementation with protein to help the healing process. MRI Pelvis from 08/21/22 - 2.8 cm decubitus ulcer at the base of the coccyx without discrete evidence of osteomyelitis. At her Wound Center visit on 02/10/23, she had urinary symptoms. A Urinalysis was done which did not report any WBC, and no Bacteria reported. The Leukocyte Esterase was 500. She was started on Cipro and has finished them. A Urine Culture showed Klebsiella pneumoniae. It is sensitive to Cipro. Today her urinary symptoms have resolved. In the Summer, 2021 she had diagnosis of osteomyelitis. She was placed on IV antibiotics per Infectious Diseases for 6 weeks until January,. This is important because it establishes a timeline for chronic refractory osteomyelitis. She underwent HBO treatments for chronic refractory osteomyelitis and finished without problems. She tolerated the treatments. Today she denies fever. Her appetite is good. Progress of Wound: It is easier to pack the ulcer since making the opening larger. May need to make the ulcer opening larger in the future. Ulcer is beefy pink. Still able to palpate bone but the bone is covered. Objective Data Objective Data Vital Signs: Vital Signs Temp Pulse Resp BP O2 Del Method 98.2 F 75 16 117/69 Room Air 10/22/23 15:11 10/22/23 15:11 10/22/23 15:11 10/22/23 15:11 10/22/23 15:11 Oxygen Delivery Method Room Air Weight: 145 lb 9.6 oz Body Mass Index (BMI) 22.8 Charges/Coding Procedures Integumentary 111xxx-113xx: 83106 Tran musc/fascia 20 sq cm/< Debridement Note Debridement Note Wound debrided: #1 Sacral area. Laterality: Not Applicable Wound Grade/Stage: IV. Type of Debridement: Excisional debridement Anesthesia Used: 5% Lidocaine Gel Depth: Down to and including healthy tissue, in the subcutaneous layer, to muscle and to bone (bone is palpable but not exposed.) Percentage of wound debrided: 100 Instrument Used: 5mm curette Tissue Removed: subcutaneous tissue and muscle. Severity: Fat Layer Exposed (muscle is exposed. Bone is palpable but not exposed.) Amount of bleeding with debridement: Mild Bleeding Controlled with: Pressure and Compression and gauze Patient tolerated procedure: Patient tolerated procedure well Post-Debridement Measurements and Additional Note: Post-Debridement Measurements/Treatment - Nurse 1 - General Ulcer Assessment Start: 10/01/23 15:07 Freq: Status: Active Protocol: .LOWEX Activity Type Activity Date Activity User E-sign Co-sign Detail Recorded Client Recorded Date Recorded By Document 10/01/23 15:07 [facility] Desktop 10/01/23 15:16 [facility] Document 10/22/23 15:11 [facility] [id number] 10/22/23 15:20 [facility] 10/01/23 10/22/23 15:07 15:11 - Today's Visit Information Type of service Follow-up Visit Follow-up Visit (Physician/KILN FURNITURE SAW TENDER (Physician/KILN FURNITURE SAW TENDER ) ) Arrival Mode Wheelchair Wheelchair Transfer Assistance Other Other Transfer Assist (Other) 1 1 Patient Identification Verified (Name & Yes Yes ) Patient Requires Transmission-Based No No Precautions Height and Weight Body Mass Index (BMI) 22.8 22.8 BMI Classification Normal Normal Vital Signs Temperature (97.8 F-99.1 F) 97.7 F L 98.2 F Temperature Source Temporal Temporal Pulse Rate (60-100) 87 75 Pulse Location Monitor Monitor Respiratory Rate (12-18) 16 16 Respiratory rate source Observation Observation Oxygen Delivery Method Room Air Room Air Blood Pressure (90/60-120/80) 112/42 L 117/69 Blood Pressure Mean (mm Hg) 65 85 Source Monitor Monitor Position Sitting Sitting Blood Pressure Location Left Arm Left Arm History Since Last Visit- (Skip if this is Patient's initial visit) Have you changed medications since your No No last visit? Any new allergies or adverse reactions No No Had a fall/change in ADL's that may No No increase risk of falls Signs or symptoms of abuse and/or No No neglect since last visit Have you been in the hospital since your No No last visit? Has dressing in place as prescribed Yes Yes Has compression in place as prescribed No No Has offloadiing in place as prescribed No No Experienced any changes in pain level or No No management Pain Scale: 0-10 Numeric Is Patient Pain Free? Yes Yes WC - Nurse 1 - General Ulcer Measurement Start: 10/01/23 15:07 Freq: Status: Active Protocol: Activity Type Activity Date Activity User E-sign Co-sign Detail Recorded Client Recorded Date Recorded By Document 10/01/23 15:07 [facility] Desktop 10/01/23 15:16 [facility] Document 10/22/23 15:11 [facility] [id number] 10/22/23 15:20 [facility] 10/01/23 10/22/23 15:07 15:11 Wound Center Nurse 1 #1- sacral -Combined with other wound No No -Current Size (cm) - Length 0.7 1.7 -Current Size (cm) - Width 0.3 0.4 -Current Size (cm) - Depth 3.5 3.2 -Total Square Cm 0.21 0.68 -Tunneling Yes No -Tunneling Position (O'clock) 12 -Tunneling Distance (cm) 3.4 -Undermining/Tunneling No Yes -Undermining/Tunneling Starts (O'clock 12 ) -Undermining/Tunneling Ends (O'clock) 1 -Maximum Distance (cm) 3.6 -Circular Undermining No No -Exudate Amt Large Medium -Exudate Type Serosanguineous Serosanguineous -Wound Margin Thickened & Thickened & Rolled Under Rolled Under -Granulation Amt Medium (34-66%) Medium (34-66%) -Granulation Quality [place] -Slough/Fibrin Yes Yes -Necrosis Amt Medium (34-66%) Medium (34-66%) -Necrotic Tissue Type Adherent Slough Adherent Slough -Structure Exposed N/A N/A -Texture (Neda-wound Skin Appearance) Assessed, Assessed Scarring -Moisture (Neda-wound Skin Appearance) Assessed Assessed -Color (Neda-wound Skin Appearance) Assessed Assessed -Temperature (Neda-wound Skin No Abnormality No Abnormality Appearance) (Pt Warm) (Pt Warm) -Tenderness on Palpation (Neda-wound No No Skin Appearance) -Ulcer Cleansing Wound Cleanser Wound Cleanser -Foul Odor after Cleansing No No WC - Nurse 2 - General Ulcer CM Notes Start: 10/01/23 15:07 Freq: Status: Active Protocol: Activity Type Activity Date Activity User E-sign Co-sign Detail Recorded Client Recorded Date Recorded By Document 10/01/23 15:22 [facility] Desktop 10/01/23 15:42 GM Edit Result 10/01/23 15:22 GM (1) Desktop 10/01/23 15:46 GM Document 10/22/23 15:31 GM wc 10/22/23 15:39 GM (1) #1- sacral - Clinical Debridement Subcutaneous => Muscle / Fascia - Tissue Removed Subcutaneous => Muscle - Debridement - Subq, 1st 20sq cm Yes => - Debridement - Muscle / Fascia, 1st => Yes 20sq cm 10/01/23 10/22/23 15:22 15:31 Wound Center Nurse 2 #1- sacral -Time 15:25 15:31 -Correct Patient Yes Yes -Correct Side, Site, Position Yes Yes -Correct Procedure Yes Yes -Procedure Performed Yes Yes -Type of Procedure Debridement Debridement -Clinical Debridement Muscle / Fascia Muscle / Fascia -Tissue Removed Muscle Muscle -Post Debridement (cm) - Length 2.0 2.0 -Post Debridement (cm) - Width 0.8 1.0 -Post Debridement (cm) - Depth 3.2 3.0 -Total Square (Post) (cm) 1.60 2.00 -Area of Debridement (cm) - Length 2.0 2.0 -Area of Debridement (cm) - Width 0.8 1.0 -Total Square (Area) (cm) 1.60 2.00 -Tunneling Yes Yes -Tunneling Position (O'clock) 12 12 -Tunneling Distance (cm) 3.5 4.3 -Undermining/Tunneling No -Circular Undermining No No -Wound/Ulcer Outcome Not Healed Not Healed -Ulcer Cleansing Rinsed/ Rinsed/ Irrigated with Irrigated with Saline Saline -Foul Odor after Cleansing No No -Bioengineered Tissue No No -Bleeding Controlled with Pressure,Silver Pressure Nitrate -Treatment Response Procedure Procedure Tolerated Well Tolerated Well -Assistive Device(s) Wheelchair -Pressure Reduction Wheelchair cushion -Debridement - Muscle / Fascia, 1st Yes Yes 20sq cm Pain Scale: 0-10 Numeric Is Patient Pain Free? Yes Yes - Nurse 3 - General Ulcer D/C NN Start: 10/01/23 15:07 Freq: Status: Active Protocol: Activity Type Activity Date Activity User E-sign Co-sign Detail Recorded Client Recorded Date Recorded By Document 10/01/23 15:50 [facility] Desktop 10/01/23 15:53 [facility] Document 10/22/23 15:57 RB wound cnter 10/22/23 15:57 RB 10/01/23 10/22/23 15:50 15:57 Wound Care Center Nurse 3 #1- sacral -Ulcer Cleansing Rinsed/ Irrigated with Saline -Foul Odor after Cleansing No -Primary Dressing Applied Aquacel AG 4x4 -Other Dressing PER RB RN dakins moistened gauze / abd -Primary Dressing Covered/Secured with Dry Gauze, Secured with Secured with Tape Tape -Other Covering ABD -Aquacel AG 4x4 1 Treatment Response Procedure Procedure Tolerated Well Tolerated Well Pain Scale: 0-10 Numeric Is Patient Pain Free? Yes Yes - Visit Discharge Discharge Condition Stable Stable Ambulatory Status Wheelchair Wheelchair Transportation Private Auto Private Auto Medication Reconcilliation completed & No provided to patient/care provider Clinical Summary of Care Provided Yes Assessment/Plan Assessment/Plan (1) Sacral decubitus ulcer, stage IV: CODE(S): L89.154 - Pressure ulcer of sacral region, stage 4 (2) Osteomyelitis: CODE(S): M86.9 - Osteomyelitis, unspecified QUALIFIERS: Osteomyelitis type: other chronic Osteomyelitis location: other site Qualified Code(s): M86.68 - Other chronic osteomyelitis, other site (3) Immobility syndrome (paraplegic): CODE(S): M62.3 - Immobility syndrome (paraplegic) (4) Multiple sclerosis: CODE(S): G35 - Multiple sclerosis (5) Long-term current use of rituximab: CODE(S): Z79.620 - terminal manager (current) use of immunosuppressive biologic (6) Former smoker: CODE(S): Z87.891 - Personal history of nicotine dependence PLAN: Plan Patient evaluated at the wound healing center today. Wound care - Dakin's 0.25% moistened gauze but alternate every other day with a Silver dressing covered with gauze/ABD. Kocuria rupinderae in the bone is positive for osteomyelitis. It is significant and should be treated since it didn't show up in the soft tissue culture. She was placed on Augmentin per Infectious Diseases recommendation. She has finished the Augmentin. On 10/30/22, Prealbumin was 20.1. Encourage nutritional supplementation with protein to help the healing process. Last 2021 she had diagnosis of osteomyelitis. She was placed on IV antibiotics per Infectious Diseases for 6 weeks until January,. This is important because it establishes a timeline for chronic refractory osteomyelitis. She underwent HBO treatments (44 treatments) for chronic refractory osteomyelitis. The HBO treatments showed improvement in her ulcer as it has been noted with granulation tissue over the bone. Now that there is granulation tissue over the bone and the sides of the ulcer are showing some healing contraction, I would like to see some evidence of the healing getting more superficial. Hopefully the Silver dressing alternating with Dakin's dressing changes can improve the healing. Discussed a date in the future that would decide if more surgery is needed, another excision of the pressure ulcer along with partial ostectomy. At this time she is not interested in a flap. Followup 2 weeks.
== END 2023-10-24 23:59 | disposition home or self-care (01) ==
LOC: WC 15:00
PROVIDERS: PCP Family Medicine; Referring Provider Nurse Practitioner; Visit Provider Surgery
DX: L89.154 Pressure ulcer of sacral region, stage 4 (principal); G35 Multiple sclerosis; M86.68 Other chronic osteomyelitis, other site; M62.3 Immobility syndrome (paraplegic); Z79.620 Long term (current) use of immunosuppressive biologic; Z79.899 Other long term (current) drug therapy; Z87.891 Personal history of nicotine dependence
CPT/HCPCS: 11042; 11043

== ENCOUNTER 2023-11-19 14:45 | Outpatient (RCR) | payer MEDICARE, SELFPAY ==
[2023-10-25 00:36] VITALS: BP 110/61; PULSE 85; RESP 20; TEMP 36.6; BMI 22.8
[2023-11-05 14:57] VITALS: BP 115/46; PULSE 87; RESP 18; TEMP 36.2; BMI 22.8
--- NOTE | 2023-11-05 16:54 | PCM.WC.PN ---
History of Present Illness Date of Service: 11/05/23 Chief Complaint: Sacral pressure sore, Stage IV. History of Wound: Surgery 12/18/22 - Excision sacral pressure sore, Stage IV, with partial ostectomy for osteomyelitis. Wound care - Dakin's alternated with Silver dressings. Operative Culture - Corynebacterium striatum in the soft tissue and Kocuria kristinae in the bone. Was treated perioperatively with Augmentin and Flagyl for a preop culture positive for Enterococcus faecalis and Anaerobes. Kocuria kristinae in the bone is positive for osteomyelitis. It is significant and should be treated since it didn't show up in the soft tissue culture. She was placed on Augmentin and has finished them. Pathology - Negative for acute osteomyelitis. Chronic reparative and reactive change. Prealbumin from 10/30/22 was 20.1. Encourage nutritional supplementation with protein to help the healing process. MRI Pelvis from 08/21/22 - 2.8 cm decubitus ulcer at the base of the coccyx without discrete evidence of osteomyelitis. At her Wound Center visit on 02/10/23, she had urinary symptoms. A Urinalysis was done which did not report any WBC, and no Bacteria reported. The Leukocyte Esterase was 500. She was started on Cipro and has finished them. A Urine Culture showed Klebsiella pneumoniae. It is sensitive to Cipro. Today her urinary symptoms have resolved. In the Summer, 2021 she had diagnosis of osteomyelitis. She was placed on IV antibiotics per Infectious Diseases for 6 weeks until January,. This is important because it establishes a timeline for chronic refractory osteomyelitis. She underwent HBO treatments for chronic refractory osteomyelitis and finished without problems. She tolerated the treatments. Today she denies fever. Her appetite is good. Progress of Wound: Sacral ulcer opening has become smaller where it is becoming difficult to pack the ulcer. Objective Data Objective Data Vital Signs: Vital Signs Temp Pulse Resp BP O2 Del Method 97.2 F L 87 18 115/46 L Room Air 11/05/23 14:57 11/05/23 14:57 11/05/23 14:57 11/05/23 14:57 11/05/23 14:57 Oxygen Delivery Method Room Air Weight: 145 lb 9.6 oz Body Mass Index (BMI) 22.8 Charges/Coding Procedures Integumentary 111xxx-113xx: 73303 Tran musc/fascia 20 sq cm/< Debridement Note Debridement Note Wound debrided: #1 Sacral area. Laterality: Not Applicable Wound Grade/Stage: IV. Type of Debridement: Excisional debridement Anesthesia Used: 5% Lidocaine Gel Depth: Down to and including healthy tissue, in the subcutaneous layer, to muscle and to bone (bone is palpable but not exposed.) Percentage of wound debrided: 100 Instrument Used: 5mm curette and #15 blade Tissue Removed: subcutaneous tissue and muscle. Severity: Fat Layer Exposed (muscle is exposed. Bone is palpable but not exposed.) Amount of bleeding with debridement: Mild Bleeding Controlled with: Pressure, Compression and gauze and Silver Nitrate Patient tolerated procedure: Patient tolerated procedure well Debridement Free Text: Injected 3-4 cc of Lidocaine 1 %/epi. After waiting 10 minutes, using an 15 blade and pickups, I made an ellipse around the ulcer opening to make it easier to to do wound care. Used pressure and silver nitrate to help control the bleeding. Used #7 curette to debride the base of the ulcer. Post-Debridement Measurements and Additional Note: Post-Debridement Measurements/Treatment - Nurse 1 - General Ulcer Assessment Start: 11/05/23 14:56 Freq: Status: Active Protocol: WC.LOWGILDAT Activity Type Activity Date Activity User E-sign Co-sign Detail Recorded Client Recorded Date Recorded By Document 11/05/23 14:57 KW k 11/05/23 15:07 KW 11/05/23 14:57 - Today's Visit Information Type of service Follow-up Visit (Physician/SALESFOR[employer] CONSULTANT ) Arrival Mode Wheelchair Patient Identification Verified (Name & Yes ) Height and Weight Body Mass Index (BMI) 22.8 BMI Classification Normal Vital Signs Temperature (97.8 F-99.1 F) 97.2 F L Temperature Source Temporal Pulse Rate (60-100) 87 Pulse Location Monitor Respiratory Rate (12-18) 18 Respiratory rate source Observation Oxygen Delivery Method Room Air Blood Pressure (90/60-120/80) 115/46 L Blood Pressure Mean (mm Hg) 69 Source Monitor Position Sitting Blood Pressure Location Left Arm History Since Last Visit- (Skip if this is Patient's initial visit) Have you changed medications since your No last visit? Any new allergies or adverse reactions No Had a fall/change in ADL's that may No increase risk of falls Signs or symptoms of abuse and/or No neglect since last visit Have you been in the hospital since your No last visit? Has dressing in place as prescribed Yes Has compression in place as prescribed N/A Has offloadiing in place as prescribed N/A Experienced any changes in pain level or No management Left Footwear Regular Shoe Right Footwear Regular Shoe Pain Scale: 0-10 Numeric Is Patient Pain Free? Yes WC - Nurse 1 - General Ulcer Measurement Start: 11/05/23 14:56 Freq: Status: Active Protocol: Activity Type Activity Date Activity User E-sign Co-sign Detail Recorded Client Recorded Date Recorded By Document 11/05/23 14:57 KW k 11/05/23 15:07 KW 11/05/23 14:57 Wound Center Nurse 1 #1- sacral -Current Size (cm) - Length 1.1 -Current Size (cm) - Width 0.3 -Current Size (cm) - Depth 4 -Total Square Cm 0.33 -Date of Last Picture (Recall this 11/05/23 field) -Exudate Amt Medium -Exudate Type Serosanguineous -Wound Margin Distinct, Outline Attached -Granulation Amt Large (67-100%) -Granulation Quality [place],Red -Texture (Neda-wound Skin Appearance) Assessed -Moisture (Neda-wound Skin Appearance) Assessed -Color (Neda-wound Skin Appearance) Assessed -Temperature (Neda-wound Skin No Abnormality Appearance) (Pt Warm) -Tenderness on Palpation (Neda-wound No Skin Appearance) -Ulcer Cleansing Rinsed/ Irrigated with Saline -Foul Odor after Cleansing No WC - Nurse 2 - General Ulcer CM Notes Start: 11/05/23 14:56 Freq: Status: Active Protocol: Activity Type Activity Date Activity User E-sign Co-sign Detail Recorded Client Recorded Date Recorded By Document 11/05/23 15:15 GM 11/05/23 15:38 GM Edit Result 11/05/23 15:15 GM (1) 11/05/23 15:48 GM (1) #1- sacral - Injectable Lidocaine w/ Epi (%) => 1 - Injectable Lidocaine w/ Epi (mls) => 8 - Bleeding Controlled with Pressure => Pressure,Silver => Nitrate 11/05/23 15:15 Wound Center Nurse 2 -Time 15:16 -Correct Patient Yes -Correct Side, Site, Position Yes -Correct Procedure Yes -Procedure Performed Yes -Type of Procedure Debridement -Clinical Debridement Subcutaneous -Tissue Removed Subcutaneous -Post Debridement (cm) - Length 2.0 -Post Debridement (cm) - Width 0.3 -Post Debridement (cm) - Depth 3.0 -Total Square (Post) (cm) 0.60 -Area of Debridement (cm) - Length 2.0 -Area of Debridement (cm) - Width 0.3 -Total Square (Area) (cm) 0.60 -Tunneling Yes -Tunneling Position (O'clock) 12 -Tunneling Distance (cm) 2.5 -Undermining/Tunneling No -Circular Undermining No -Wound/Ulcer Outcome Not Healed -Ulcer Cleansing Not Cleansed -Injectable Lidocaine w/ Epi (%) 1 -Injectable Lidocaine w/ Epi (mls) 8 -Bleeding Controlled with Pressure,Silver Nitrate -Treatment Response Procedure Tolerated Well -Debridement - Subq, 1st 20sq cm Yes Pain Scale: 0-10 Numeric Is Patient Pain Free? Yes WC - Nurse 3 - General Ulcer D/C NN Start: 11/05/23 14:56 Freq: Status: Active Protocol: Activity Type Activity Date Activity User E-sign Co-sign Detail Recorded Client Recorded Date Recorded By Document 11/05/23 15:53 [facility] [id number] 11/05/23 15:54 [facility] 11/05/23 15:53 Wound Care Center Nurse 3 #1- sacral -Ulcer Cleansing Rinsed/ Irrigated with Saline -Foul Odor after Cleansing No -Primary Dressing Applied Aquacel AG 4x4 -Other Dressing ABD -Primary Dressing Covered/Secured with Dry Gauze, Secured with Tape -Aquacel AG 4x4 1 Treatment Response Procedure Tolerated Well Pain Scale: 0-10 Numeric Is Patient Pain Free? Yes WC - Visit Discharge Discharge Condition Stable Ambulatory Status Wheelchair Transportation Private Auto Assessment/Plan Assessment/Plan (1) Sacral decubitus ulcer, stage IV: CODE(S): L89.154 - Pressure ulcer of sacral region, stage 4 (2) Osteomyelitis: CODE(S): M86.9 - Osteomyelitis, unspecified QUALIFIERS: Osteomyelitis type: other chronic Osteomyelitis location: other site Qualified Code(s): M86.68 - Other chronic osteomyelitis, other site (3) Immobility syndrome (paraplegic): CODE(S): M62.3 - Immobility syndrome (paraplegic) (4) Multiple sclerosis: CODE(S): G35 - Multiple sclerosis (5) Long-term current use of rituximab: CODE(S): Z79.620 - long term care pharmacist (current) use of immunosuppressive biologic (6) Former smoker: CODE(S): Z87.891 - Personal history of nicotine dependence PLAN: Plan Patient evaluated at the wound healing center today. Wound care - Dakin's 0.25% moistened gauze but alternate every other day with a Silver dressing covered with gauze/ABD. Kocuria kristinae in the bone is positive for osteomyelitis. It is significant and should be treated since it didn't show up in the soft tissue culture. She was placed on Augmentin per Infectious Diseases recommendation. She has finished the Augmentin. On 10/30/22, Prealbumin was 20.1. Encourage nutritional supplementation with protein to help the healing process. Last 2021 she had diagnosis of osteomyelitis. She was placed on IV antibiotics per Infectious Diseases for 6 weeks until January,. This is important because it establishes a timeline for chronic refractory osteomyelitis. She underwent HBO treatments (44 treatments) for chronic refractory osteomyelitis. The HBO treatments showed improvement in her ulcer as it has been noted with granulation tissue over the bone. Now that there is granulation tissue over the bone and the sides of the ulcer are showing some healing contraction, I would like to see some evidence of the healing getting more superficial. Hopefully the Silver dressing alternating with Dakin's dressing changes can improve the healing. Discussed a date in the future that would decide if more surgery is needed, another excision of the pressure ulcer along with partial ostectomy. At this time she is not interested in a flap. Followup 2 weeks.
[2023-11-19 15:26] VITALS: BP 114/45; PULSE 72; RESP 16; TEMP 36.8; BMI 22.8
--- NOTE | 2023-11-19 16:12 | PCM.WC.PN ---
History of Present Illness Date of Service: 11/19/23 Chief Complaint: Sacral pressure sore, Stage IV. History of Wound: Surgery 12/18/22 - Excision sacral pressure sore, Stage IV, with partial ostectomy for osteomyelitis. Wound care - Dakin's alternated with Silver dressings. Operative Culture - Corynebacterium striatum in the soft tissue and Kocuria kristinae in the bone. Was treated perioperatively with Augmentin and Flagyl for a preop culture positive for Enterococcus faecalis and Anaerobes. Kocuria kristinae in the bone is positive for osteomyelitis. It is significant and should be treated since it didn't show up in the soft tissue culture. She was placed on Augmentin and has finished them. Pathology - Negative for acute osteomyelitis. Chronic reparative and reactive change. Prealbumin from 10/30/22 was 20.1. Encourage nutritional supplementation with protein to help the healing process. MRI Pelvis from 08/21/22 - 2.8 cm decubitus ulcer at the base of the coccyx without discrete evidence of osteomyelitis. At her Wound Center visit on 02/10/23, she had urinary symptoms. A Urinalysis was done which did not report any WBC, and no Bacteria reported. The Leukocyte Esterase was 500. She was started on Cipro and has finished them. A Urine Culture showed Klebsiella pneumoniae. It is sensitive to Cipro. Today her urinary symptoms have resolved. In the Summer, 2021 she had diagnosis of osteomyelitis. She was placed on IV antibiotics per Infectious Diseases for 6 weeks until January,. This is important because it establishes a timeline for chronic refractory osteomyelitis. She underwent HBO treatments for chronic refractory osteomyelitis and finished without problems. She tolerated the treatments. Today she denies fever. Her appetite is good. Progress of Wound: Patient states that she has been having episodes of fever and chills. She states that she typically has either a UTI or a wound infection when she starts to feel like this. She brought in sterile urine to be tested for UA. A wound culture was obtained today.? A positive culture will necessitate antibiotic therapy. Overall her ulcer looks pink, there is no odor or erythema. The opening of the ulcer remains open to make it easy to pack the ulcer. Objective Data Objective Data Vital Signs: Vital Signs Temp Pulse Resp BP O2 Del Method 98.3 F 72 16 114/45 L Room Air 11/19/23 15:26 11/19/23 15:26 11/19/23 15:26 11/19/23 15:26 11/19/23 15:26 Oxygen Delivery Method Room Air Weight: 145 lb 9.6 oz Body Mass Index (BMI) 22.8 Charges/Coding Procedures Integumentary 111xxx-113xx: 67423 Tran musc/fascia 20 sq cm/< Debridement Note Debridement Note Wound debrided: #1 Sacral area. Laterality: Not Applicable Wound Grade/Stage: IV. Type of Debridement: Excisional debridement Anesthesia Used: 5% Lidocaine Gel Depth: Down to and including healthy tissue, in the subcutaneous layer, to muscle and to bone (bone is palpable but not exposed.) Percentage of wound debrided: 100 Instrument Used: 5mm curette Tissue Removed: subcutaneous tissue slough, into the muscle. Severity: Fat Layer Exposed (muscle is exposed. Bone is palpable but not exposed.) Amount of bleeding with debridement: Mild Bleeding Controlled with: Pressure, Compression and gauze and Silver Nitrate Patient tolerated procedure: Patient tolerated procedure well Post-Debridement Measurements and Additional Note: Post-Debridement Measurements/Treatment - Nurse 1 - General Ulcer Assessment Start: 11/05/23 14:56 Freq: Status: Active Protocol: .SHAR Activity Type Activity Date Activity User E-sign Co-sign Detail Recorded Client Recorded Date Recorded By Document 11/05/23 14:57 KW k 11/05/23 15:07 Document 11/19/23 15:[address] [facility] [id number] 11/19/23 15:[address] [facility] 11/05/23 11/19/23 14:57 15:26 - Today's Visit Information Type of service Follow-up Visit Follow-up Visit (Physician/CLOTH WINDING SUPERVISOR (Physician/CLOTH WINDING SUPERVISOR ) ) Arrival Mode Wheelchair Ambulatory Transfer Assistance Other Transfer Assist (Other) 1 Patient Identification Verified (Name & Yes Yes ) Patient Requires Transmission-Based No Precautions Height and Weight Body Mass Index (BMI) 22.8 22.8 BMI Classification Normal Normal Vital Signs Temperature (97.8 F-99.1 F) 97.2 F L 98.3 F Temperature Source Temporal Temporal Pulse Rate (60-100) 87 72 Pulse Location Monitor Monitor Respiratory Rate (12-18) 18 16 Respiratory rate source Observation Observation Oxygen Delivery Method Room Air Room Air Blood Pressure (90/60-120/80) 115/46 L 114/45 L Blood Pressure Mean (mm Hg) 69 68 Source Monitor Monitor Position Sitting Sitting Blood Pressure Location Left Arm Left Forearm History Since Last Visit- (Skip if this is Patient's initial visit) Have you changed medications since your No No last visit? Any new allergies or adverse reactions No No Had a fall/change in ADL's that may No No increase risk of falls Signs or symptoms of abuse and/or No No neglect since last visit Have you been in the hospital since your No No last visit? Has dressing in place as prescribed Yes Yes Has compression in place as prescribed N/A N/A Has offloadiing in place as prescribed N/A N/A Experienced any changes in pain level or No No management Left Footwear Regular Shoe Regular Shoe Right Footwear Regular Shoe Regular Shoe Pain Scale: 0-10 Numeric Is Patient Pain Free? Yes Yes WC - Nurse 1 - General Ulcer Measurement Start: 11/05/23 14:56 Freq: Status: Active Protocol: Activity Type Activity Date Activity User E-sign Co-sign Detail Recorded Client Recorded Date Recorded By Document 11/05/23 14:57 KW k 11/05/23 15:07 KW Document 11/19/23 15:[address] [facility] [id number] 11/19/23 15:35 [facility] 11/05/23 11/19/23 14:57 15:26 Wound Center Nurse 1 #1- sacral -Combined with other wound No -Current Size (cm) - Length 1.1 2.3 -Current Size (cm) - Width 0.3 0.6 -Current Size (cm) - Depth 4 3.4 -Total Square Cm 0.33 1.38 -Date of Last Picture (Recall this 11/05/23 11/19/23 field) -Photo Taken Yes -Epithelialization None Present -Tunneling Yes -Tunneling Position (O'clock) 1 -Tunneling Distance (cm) 3.9 -Undermining/Tunneling No -Circular Undermining No -Exudate Amt Medium Medium -Exudate Type Serosanguineous Serosanguineous -Wound Margin Distinct, Distinct, Outline Outline Attached Attached -Granulation Amt Large (67-100%) Large (67-100%) -Granulation Quality [place],Red Red -Slough/Fibrin No -Necrosis Amt None Present (0 %) -Texture (Neda-wound Skin Appearance) Assessed Assessed, Scarring -Moisture (Neda-wound Skin Appearance) Assessed Assessed -Color (Neda-wound Skin Appearance) Assessed Assessed -Temperature (Neda-wound Skin No Abnormality No Abnormality Appearance) (Pt Warm) (Pt Warm) -Tenderness on Palpation (Neda-wound No No Skin Appearance) -Ulcer Cleansing Rinsed/ Rinsed/ Irrigated with Irrigated with Saline Saline -Foul Odor after Cleansing No No WC - Nurse 2 - General Ulcer CM Notes Start: 11/05/23 14:56 Freq: Status: Active Protocol: Activity Type Activity Date Activity User E-sign Co-sign Detail Recorded Client Recorded Date Recorded By Document 11/05/23 15:15 GM 11/05/23 15:38 GM Edit Result 11/05/23 15:15 GM (1) 11/05/23 15:48 GM Edit Result 11/05/23 15:15 GM (2) [id number] 11/12/23 07:26 GM Document 11/19/23 15:42 GM 11/19/23 15:46 GM (1) #1- sacral - Injectable Lidocaine w/ Epi (%) => 1 - Injectable Lidocaine w/ Epi (mls) => 8 - Bleeding Controlled with Pressure => Pressure,Silver => Nitrate (2) #1- sacral - Clinical Debridement Subcutaneous => Muscle / Fascia - Tissue Removed Subcutaneous => Muscle - Debridement - Subq, 1st 20sq cm Yes => - Debridement - Muscle / Fascia, 1st => Yes 20sq cm 11/05/23 11/19/23 15:15 15:42 Wound Center Nurse 2 #1- sacral -Time 15:16 15:45 -Correct Patient Yes Yes -Correct Side, Site, Position Yes Yes -Correct Procedure Yes Yes -Procedure Performed Yes Yes -Type of Procedure Debridement Debridement -Clinical Debridement Muscle / Fascia Muscle / Fascia -Tissue Removed Muscle Muscle -Post Debridement (cm) - Length 2.0 2.5 -Post Debridement (cm) - Width 0.3 1.0 -Post Debridement (cm) - Depth 3.0 3.0 -Total Square (Post) (cm) 0.60 2.50 -Area of Debridement (cm) - Length 2.0 2.5 -Area of Debridement (cm) - Width 0.3 1.0 -Total Square (Area) (cm) 0.60 2.50 -Tunneling Yes No -Tunneling Position (O'clock) 12 12 -Tunneling Distance (cm) 2.5 4.5 -Undermining/Tunneling No No -Circular Undermining No No -Wound/Ulcer Outcome Not Healed Not Healed -Ulcer Cleansing Not Cleansed Rinsed/ Irrigated with Saline -Foul Odor after Cleansing No -Bioengineered Tissue No -Injectable Lidocaine w/ Epi (%) 1 -Injectable Lidocaine w/ Epi (mls) 8 -Bleeding Controlled with Pressure,Silver Pressure Nitrate -Treatment Response Procedure Procedure Tolerated Well Tolerated Well -Debridement - Muscle / Fascia, 1st Yes Yes 20sq cm Pain Scale: 0-10 Numeric Is Patient Pain Free? Yes Yes - Nurse 3 - General Ulcer D/C NN Start: 11/05/23 14:56 Freq: Status: Active Protocol: Activity Type Activity Date Activity User E-sign Co-sign Detail Recorded Client Recorded Date Recorded By Document 11/05/23 15:[address] [facility] [id number] 11/05/23 15:[address] [facility] Document 11/19/23 15:57 RB wound 11/19/23 15:58 RB 11/05/23 11/19/23 15:53 15:57 Wound Care Center Nurse 3 #1- sacral -Ulcer Cleansing Rinsed/ Wound Cleanser Irrigated with Saline -Foul Odor after Cleansing No -Primary Dressing Applied Aquacel AG 4x4 -Other Dressing ABD dakins moistened gauze / ABD -Primary Dressing Covered/Secured with Dry Gauze, Dry Gauze, Secured with Secured with Tape Tape -Aquacel AG 4x4 1 Treatment Response Procedure Procedure Tolerated Well Tolerated Well Pain Scale: 0-10 Numeric Is Patient Pain Free? Yes Yes - Visit Discharge Discharge Condition Stable Stable Ambulatory Status Wheelchair Wheelchair Transportation Private Auto Private Auto Medication Reconcilliation completed & No provided to patient/care provider Clinical Summary of Care Provided Yes Assessment/Plan Assessment/Plan (1) Sacral decubitus ulcer, stage IV: CODE(S): L89.154 - Pressure ulcer of sacral region, stage 4 (2) Osteomyelitis: CODE(S): M86.9 - Osteomyelitis, unspecified QUALIFIERS: Osteomyelitis type: other chronic Osteomyelitis location: other site Qualified Code(s): M86.68 - Other chronic osteomyelitis, other site (3) Immobility syndrome (paraplegic): CODE(S): M62.3 - Immobility syndrome (paraplegic) (4) Multiple sclerosis: CODE(S): G35 - Multiple sclerosis (5) Long-term current use of rituximab: CODE(S): Z79.620 - intermodal dispatcher (current) use of immunosuppressive biologic (6) Former smoker: CODE(S): Z87.891 - Personal history of nicotine dependence PLAN: Plan Patient evaluated at the wound healing center today. Wound care - Dakin's 0.25% moistened gauze but alternate every other day with a Silver dressing covered with gauze/ABD. Kocuria kristinae in the bone is positive for osteomyelitis. It is significant and should be treated since it didn't show up in the soft tissue culture. She was placed on Augmentin per Infectious Diseases recommendation. She has finished the Augmentin. On 10/30/22, Prealbumin was 20.1. Encourage nutritional supplementation with protein to help the healing process. Last 2021 she had diagnosis of osteomyelitis. She was placed on IV antibiotics per Infectious Diseases for 6 weeks until January,. This is important because it establishes a timeline for chronic refractory osteomyelitis. She underwent HBO treatments (44 treatments) for chronic refractory osteomyelitis. The HBO treatments showed improvement in her ulcer as it has been noted with granulation tissue over the bone. Now that there is granulation tissue over the bone and the sides of the ulcer are showing some healing contraction, I would like to see some evidence of the healing getting more superficial. Hopefully the Silver dressing alternating with Dakin's dressing changes can improve the healing. Discussed a date in the future that would decide if more surgery is needed, another excision of the pressure ulcer along with partial ostectomy. At this time she is not interested in a flap. A wound culture was obtained today.? A positive culture will necessitate antibiotic therapy. UA and C&S obtained today. Will prophylactically start her on Cefadroxil. It may be necessary to change the antibiotic once her urine and wound culture results are back. Followup 2 weeks.
[2023-11-19 16:46] LABS: Color, Urine Yellow (Yellow); Glucose, Dipstick Normal (Normal); Ketone-Dipstick Negative (Negative); Leukocyte Esterase-Dipstick Negative /ul (Negative); Nitrite-Dipstick Negative (Negative); Occult Blood-Urine Negative /ul (Negative); Protein-Dipstick Negative (Negative); Urine Bilirubin Dipstick Negative (Negative); Urine Clarity Clear (Clear); Urine Urobilinogen Normal (Normal)
--- NOTE | 2023-11-26 10:19 | WC ---
PHOTO 11/19/2023 [facility]
== END 2023-11-23 23:59 | disposition home or self-care (01) ==
LOC: WC 14:45
PROVIDERS: PCP Family Medicine; Referring Provider Nurse Practitioner; Visit Provider Nurse Practitioner Family
DX: L89.154 Pressure ulcer of sacral region, stage 4 (principal); G35 Multiple sclerosis; M86.68 Other chronic osteomyelitis, other site; M62.3 Immobility syndrome (paraplegic); Z87.891 Personal history of nicotine dependence; Z79.620 Long term (current) use of immunosuppressive biologic
CPT/HCPCS: 11042; 11043; 81002; 87070; 87075; 87077; 87086; 87186; 87205

== ENCOUNTER 2023-12-10 14:56 | Outpatient (RCR) | payer MEDICARE, SELFPAY ==
[2023-11-24 00:32] VITALS: BP 110/61; PULSE 85; RESP 20; TEMP 36.6; BMI 22.8
[2023-12-10 15:16] VITALS: BP 122/47; PULSE 67; RESP 18; BMI 22.8
--- NOTE | 2023-12-10 16:18 | PCM.WC.PN ---
History of Present Illness Date of Service: 12/10/23 Chief Complaint: Sacral pressure sore, Stage IV. History of Wound: Surgery 12/18/22 - Excision sacral pressure sore, Stage IV, with partial ostectomy for osteomyelitis. Wound care - Dakin's alternated with Silver dressings. Operative Culture - Corynebacterium striatum in the soft tissue and Kocuria kristinae in the bone. Was treated perioperatively with Augmentin and Flagyl for a preop culture positive for Enterococcus faecalis and Anaerobes. Kocuria kristinae in the bone is positive for osteomyelitis. It is significant and should be treated since it didn't show up in the soft tissue culture. She was placed on Augmentin and has finished them. Pathology - Negative for acute osteomyelitis. Chronic reparative and reactive change. Prealbumin from 10/30/22 was 20.1. Encourage nutritional supplementation with protein to help the healing process. MRI Pelvis from 08/21/22 - 2.8 cm decubitus ulcer at the base of the coccyx without discrete evidence of osteomyelitis. At her Wound Center visit on 02/10/23, she had urinary symptoms. A Urinalysis was done which did not report any WBC, and no Bacteria reported. The Leukocyte Esterase was 500. She was started on Cipro and has finished them. A Urine Culture showed Klebsiella pneumoniae. It is sensitive to Cipro. Today her urinary symptoms have resolved. Wound culture 11/19/23 was positive for Staphylococcus capitis and Corynebacterium minutissimum which was treated with Augmentin. The symptoms of fatigue, and fever and chills resolved after being on the antibiotic of a couple days. In the 2021 she had diagnosis of osteomyelitis. She was placed on IV antibiotics per Infectious Diseases for 6 weeks until January,. This is important because it establishes a timeline for chronic refractory osteomyelitis. She underwent HBO treatments for chronic refractory osteomyelitis and finished without problems. She tolerated the treatments. Today she denies fever. Her appetite is good. Progress of Wound: She states she is feeling better after starting the antibiotic, which she states she has completed. The opening of the ulcer has decreased and it is difficult to pack the ulcer. The ulcer depth and tunnel are stable. Objective Data Objective Data Vital Signs: Vital Signs Temp Pulse Resp BP 98 F 67 18 122/47 H 11/24/23 00:32 12/10/23 15:16 12/10/23 15:16 12/10/23 15:16 Weight: 145 lb 9.6 oz Body Mass Index (BMI) 22.8 Charges/Coding Procedures Integumentary 111xxx-113xx: 12448 Tran musc/fascia 20 sq cm/< Debridement Note Debridement Note Wound debrided: #1 Sacral area. Laterality: Not Applicable Wound Grade/Stage: IV. Type of Debridement: Excisional debridement Anesthesia Used: 5% Lidocaine Gel Depth: Down to and including healthy tissue, in the subcutaneous layer, to muscle and to bone (bone is palpable but not exposed.) Percentage of wound debrided: 100 Instrument Used: 5mm curette and #10 blade (pick ups to make opening of ulcer larger) Tissue Removed: subcutaneous tissue slough, into the muscle. Severity: Fat Layer Exposed (muscle is exposed. Bone is palpable but not exposed.) Amount of bleeding with debridement: Mild Bleeding Controlled with: Pressure, Compression and gauze and Silver Nitrate Patient tolerated procedure: Patient tolerated procedure well Debridement Free Text: Used Lidocaine 1%/Epi 3ml injected around opening of ulcer. Used #10 blade and pickup to make an ellipse to make opening larger so easier to pack. Patient tolerated it well. Silver nitrate used around the opening to help prevent bleeding. 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 ) Arrival Mode Ambulatory Accompanied by self Patient Identification Verified (Name & Yes ) Safety Precautions Fall Prevention Height and Weight Body Mass Index (BMI) 22.8 BMI Classification Normal Vital Signs Pulse Rate (60-100) 67 Pulse Location Monitor Respiratory Rate (12-18) 18 Respiratory rate source Observation Blood Pressure (90/60-120/80) 122/47 H Blood Pressure Mean (mm Hg) 72 Source Manual Position Sitting Blood Pressure Location Right Arm History Since Last Visit- (Skip if this is Patient's initial visit) Has dressing in place as prescribed Yes Has compression in place as prescribed Yes Has offloadiing in place as prescribed Yes Experienced any changes in pain level or Yes management Left Footwear Regular Shoe Right Footwear Regular Shoe Pain Scale: 0-10 Numeric Is Patient Pain Free? Yes - Nurse 1 - General Ulcer Measurement Start: 12/10/23 15:13 Freq: Status: Active Protocol: Activity Type Activity Date Activity User E-sign Co-sign Detail Recorded Client Recorded Date Recorded By Document 12/10/23 15:16 [id number] 12/10/23 15:31 NM 12/10/23 15:16 Wound Center Nurse 1 #1- sacral -Current Size (cm) - Length 1.8 -Current Size (cm) - Width 0.5 -Current Size (cm) - Depth 3.0 -Total Square Cm 0.90 -Photo Taken No -Tunneling No -Undermining/Tunneling No -Circular Undermining No -Exudate Amt Medium -Exudate Type Serosanguineous -Wound Margin Thickened & Rolled Under -Granulation Amt Large (67-100%) -Granulation Quality Pale,[place] -Slough/Fibrin No -Texture (Neda-wound Skin Appearance) Assessed -Moisture (Neda-wound Skin Appearance) Assessed -Color (Neda-wound Skin Appearance) Assessed -Temperature (Neda-wound Skin No Abnormality Appearance) (Pt Warm) -Tenderness on Palpation (Neda-wound No Skin Appearance) -Ulcer Cleansing Soap and Water -Foul Odor after Cleansing No -Anesthetic Used 5% Lidocaine Gel Lower Limb Edema Present NA - Nurse 2 - General Ulcer CM Notes Start: 12/10/23 15:13 Freq: Status: Active Protocol: Activity Type Activity Date Activity User E-sign Co-sign Detail Recorded Client Recorded Date Recorded By Document 12/10/23 15:37 BMF 10.10.7 12/10/23 15:52 BMF Edit Result 12/10/23 15:37 BMF (1) 10.10.7 12/10/23 15:55 BMF Edit Result 12/10/23 15:37 BMF (2) 10.10.7 12/10/23 15:56 BMF (1) #1- sacral - Injectable Lidocaine w/ Epi (%) => 1 - Injectable Lidocaine w/ Epi (mls) => 10 (2) #1- sacral - Bleeding Controlled with Pressure => Silver Nitrate 12/10/23 15:37 Wound Center Nurse 2 #1- sacral -Time 15:37 -Correct Patient Yes -Correct Side, Site, Position Yes -Correct Procedure Yes -Procedure Performed Yes -Type of Procedure Debridement -Clinical Debridement Muscle / Fascia -Tissue Removed Muscle -Post Debridement (cm) - Length 2.2 -Post Debridement (cm) - Width 0.8 -Post Debridement (cm) - Depth 2.5 -Total Square (Post) (cm) 1.76 -Area of Debridement (cm) - Length 2.2 -Area of Debridement (cm) - Width 0.8 -Total Square (Area) (cm) 1.76 -Tunneling Yes -Tunneling Position (O'clock) 12 -Tunneling Distance (cm) 3.8 -Undermining/Tunneling No -Circular Undermining No -Wound/Ulcer Outcome Not Healed -Ulcer Cleansing Rinsed/ Irrigated with Saline -Foul Odor after Cleansing No -Bioengineered Tissue No -Injectable Lidocaine w/ Epi (%) 1 -Injectable Lidocaine w/ Epi (mls) 10 -Bleeding Controlled with Silver Nitrate -Treatment Response Procedure Tolerated Well -Debridement - Muscle / Fascia, 1st Yes 20sq cm Pain Scale: 0-10 Numeric Is Patient Pain Free? Yes - Nurse 3 - General Ulcer D/C NN Start: 12/10/23 15:13 Freq: Status: Active Protocol: Activity Type Activity Date Activity User E-sign Co-sign Detail Recorded Client Recorded Date Recorded By Document 12/10/23 15:55 [facility] 10.10.25.7 12/10/23 15:56 [facility] 12/10/23 15:55 Wound Care Center Nurse 3 #1- sacral -Ulcer Cleansing Rinsed/ Irrigated with Saline -Foul Odor after Cleansing No -Other Dressing DAKINS MOIST GAUZE -Primary Dressing Covered/Secured with Secured with Tape -Other Covering ABD; PER MT RN Treatment Response Procedure Tolerated Well Pain Scale: 0-10 Numeric Is Patient Pain Free? Yes - Visit Discharge Discharge Condition Stable Ambulatory Status Wheelchair Transportation Private Auto Assessment/Plan Assessment/Plan (1) Sacral decubitus ulcer, stage IV: CODE(S): L89.154 - Pressure ulcer of sacral region, stage 4 (2) Osteomyelitis: CODE(S): M86.9 - Osteomyelitis, unspecified QUALIFIERS: Osteomyelitis type: other chronic Osteomyelitis location: other site Qualified Code(s): M86.68 - Other chronic osteomyelitis, other site (3) Immobility syndrome (paraplegic): CODE(S): M62.3 - Immobility syndrome (paraplegic) (4) Multiple sclerosis: CODE(S): G35 - Multiple sclerosis (5) Long-term current use of rituximab: CODE(S): Z79.620 - [facility] (current) use of immunosuppressive biologic (6) Former smoker: CODE(S): Z87.891 - Personal history of nicotine dependence PLAN: Plan Patient evaluated at the wound healing center today. Wound care - Dakin's 0.25% moistened gauze but alternate every other day with a Silver dressing covered with gauze/ABD. Kocuria kristinae in the bone is positive for osteomyelitis. It is significant and should be treated since it didn't show up in the soft tissue culture. She was placed on Augmentin per Infectious Diseases recommendation. She has finished the Augmentin. On 10/30/22, Prealbumin was 20.1. Encourage nutritional supplementation with protein to help the healing process. summer she had diagnosis of osteomyelitis. She was placed on IV antibiotics per Infectious Diseases for 6 weeks until January,. This is important because it establishes a timeline for chronic refractory osteomyelitis. She underwent HBO treatments (44 treatments) for chronic refractory osteomyelitis. The HBO treatments showed improvement in her ulcer as it has been noted with granulation tissue over the bone. Now that there is granulation tissue over the bone and the sides of the ulcer are showing some healing contraction, I would like to see some evidence of the healing getting more superficial. Hopefully the Silver dressing alternating with Dakin's dressing changes can improve the healing. Discussed a date in the future that would decide if more surgery is needed, another excision of the pressure ulcer along with partial ostectomy. At this time she is not interested in a flap. Wound culture 11/19/23 was positive for Staphylococcus capitis and Corynebacterium minutissimum which was treated with Augmentin. The symptoms of fatigue, and fever and chills resolved after being on the antibiotic of a couple days. She has completed the antibiotic. UA and C&S Were negative. Followup 2-3 weeks. Instructed to call or come in sooner if develop any concerns.
== END 2023-12-24 23:59 | disposition home or self-care (01) ==
LOC: WC 14:56
PROVIDERS: PCP Family Medicine; Referring Provider Nurse Practitioner; Visit Provider Nurse Practitioner Family
DX: L89.154 Pressure ulcer of sacral region, stage 4 (principal); G35 Multiple sclerosis; M86.68 Other chronic osteomyelitis, other site; M62.3 Immobility syndrome (paraplegic); Z87.891 Personal history of nicotine dependence; Z79.620 Long term (current) use of immunosuppressive biologic
CPT/HCPCS: 11043

== ENCOUNTER 2024-01-14 15:00 | Outpatient (RCR) | payer MEDICARE, SELFPAY ==
[2023-12-25 00:43] VITALS: BP 110/61; PULSE 85; RESP 20; TEMP 36.6; BMI 22.8
[2023-12-29 15:04] VITALS: BP 118/66; PULSE 84; RESP 18; TEMP 36.4; BMI 22.8
--- NOTE | 2023-12-29 16:50 | PCM.WC.PN ---
History of Present Illness Date of Service: 12/29/23 Chief Complaint: Sacral pressure sore, Stage IV. History of Wound: Surgery 12/18/22 - Excision sacral pressure sore, Stage IV, with partial ostectomy for osteomyelitis. Wound care - Dakin's alternated with Silver dressings. Operative Culture - Corynebacterium striatum in the soft tissue and Kocuria kristinae in the bone. Was treated perioperatively with Augmentin and Flagyl for a preop culture positive for Enterococcus faecalis and Anaerobes. Kocuria kristinae in the bone is positive for osteomyelitis. It is significant and should be treated since it didn't show up in the soft tissue culture. She was placed on Augmentin and has finished them. Pathology - Negative for acute osteomyelitis. Chronic reparative and reactive change. Prealbumin from 10/30/22 was 20.1. Encourage nutritional supplementation with protein to help the healing process. MRI Pelvis from 08/21/22 - 2.8 cm decubitus ulcer at the base of the coccyx without discrete evidence of osteomyelitis. At her Wound Center visit on 02/10/23, she had urinary symptoms. A Urinalysis was done which did not report any WBC, and no Bacteria reported. The Leukocyte Esterase was 500. She was started on Cipro and has finished them. A Urine Culture showed Klebsiella pneumoniae. It is sensitive to Cipro. Today her urinary symptoms have resolved. In the Summer, 2021 she had diagnosis of osteomyelitis. She was placed on IV antibiotics per Infectious Diseases for 6 weeks until January,. This is important because it establishes a timeline for chronic refractory osteomyelitis. She underwent HBO treatments for chronic refractory osteomyelitis and finished without problems. She tolerated the treatments. Today she denies fever. Her appetite is good. Progress of Wound: Ulcer is stable. She denies having issues packing the ulcer at this time. Objective Data Objective Data Vital Signs: Vital Signs Temp Pulse Resp BP 97.5 F L 84 18 118/66 12/29/23 15:04 12/29/23 15:04 12/29/23 15:04 12/29/23 15:04 Weight: 145 lb 9.6 oz Body Mass Index (BMI) 22.8 Charges/Coding Procedures Integumentary 111xxx-113xx: 66242 Tran musc/fascia 20 sq cm/< Debridement Note Debridement Note Wound debrided: #1 Sacral area. Laterality: Not Applicable Wound Grade/Stage: IV. Type of Debridement: Excisional debridement Anesthesia Used: 5% Lidocaine Gel Depth: Down to and including healthy tissue, in the subcutaneous layer, to muscle and to bone (bone is palpable but not exposed.) Percentage of wound debrided: 100 Instrument Used: 7mm curette Tissue Removed: subcutaneous tissue slough, into the muscle. Severity: Fat Layer Exposed (muscle is exposed. 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 of service 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 ) Arrival Mode Wheelchair Transfer Assistance None Patient Identification Verified (Name & Yes ) Patient Requires Transmission-Based No Precautions Height and Weight Body Mass Index (BMI) 22.8 BMI Classification Normal Vital Signs Temperature (97.8 F-99.1 F) 97.5 F L Temperature Source Temporal Pulse Rate (60-100) 84 Pulse Location Monitor Respiratory Rate (12-18) 18 Respiratory rate source Observation Blood Pressure (90/60-120/80) 118/66 Blood Pressure Mean (mm Hg) 83 Source Monitor History Since Last Visit- (Skip if this is Patient's initial visit) Have you changed medications since your No last visit? Any new allergies or adverse reactions No Had a fall/change in ADL's that may No increase risk of falls Signs or symptoms of abuse and/or No neglect since last visit Have you been in the hospital since your No last visit? Has dressing in place as prescribed Yes Has compression in place as prescribed N/A Has offloadiing in place as prescribed Yes Experienced any changes in pain level or No management Pain Scale: 0-10 Numeric Is Patient Pain Free? Yes - Nurse 1 - General Ulcer Measurement Start: 12/29/23 15:04 Freq: Status: Active Protocol: Activity Type Activity Date Activity User E-sign Co-sign Detail Recorded Client Recorded Date Recorded By Document 12/29/23 15:04 KW fghj 12/29/23 15:14 KW 12/29/23 15:04 Wound Center Nurse 1 #1- sacral -Current Size (cm) - Length 2.1 -Current Size (cm) - Width 0.2 -Current Size (cm) - Depth 4 -Total Square Cm 0.42 -Photo Taken Yes -Tunneling Position (O'clock) 12 -Tunneling Distance (cm) 2.2 -Exudate Amt Medium -Exudate Type Serosanguineous -Wound Margin Distinct, Outline Attached -Granulation Amt Medium (34-66%) -Granulation Quality Red -Necrosis Amt Medium (34-66%) -Necrotic Tissue Type Adherent Slough -Structure Exposed N/A -Texture (Neda-wound Skin Appearance) Scarring -Moisture (Neda-wound Skin Appearance) No Abnormality -Color (Neda-wound Skin Appearance) No Abnormality -Temperature (Neda-wound Skin No Abnormality Appearance) (Pt Warm) -Tenderness on Palpation (Neda-wound No Skin Appearance) -Ulcer Cleansing Soap and Water -Foul Odor after Cleansing No -Anesthetic Used 5% Lidocaine Gel WC - Nurse 2 - General Ulcer CM Notes Start: 12/29/23 15:04 Freq: Status: Active Protocol: Activity Type Activity Date Activity User E-sign Co-sign Detail Recorded Client Recorded Date Recorded By Document 12/29/23 15:38 JF 0000 12/29/23 15:43 JF 12/29/23 15:38 Wound Center Nurse 2 -Time 15:38 -Correct Patient Yes -Correct Side, Site, Position Yes -Correct Procedure Yes -Procedure Performed Yes -Type of Procedure Debridement -Clinical Debridement Muscle / Fascia -Tissue Removed Muscle,Fascia -Post Debridement (cm) - Length 2.0 -Post Debridement (cm) - Width 0.6 -Post Debridement (cm) - Depth 3.4 -Total Square (Post) (cm) 1.20 -Area of Debridement (cm) - Length 2.0 -Area of Debridement (cm) - Width 0.6 -Total Square (Area) (cm) 1.20 -Tunneling Yes -Tunneling Position (O'clock) 12 -Tunneling Distance (cm) 3.6 -Undermining/Tunneling No -Circular Undermining No -Wound/Ulcer Outcome Not Healed -Ulcer Cleansing Rinsed/ Irrigated with Saline -Foul Odor after Cleansing No -Bioengineered Tissue No -Bleeding Controlled with Pressure -Treatment Response Procedure Tolerated Well -Offloading No -Pressure Reduction Wheelchair cushion -Debridement - Muscle / Fascia, 1st Yes 20sq cm Pain Scale: 0-10 Numeric Is Patient Pain Free? Yes - Nurse 3 - General Ulcer D/C NN Start: 12/29/23 15:04 Freq: Status: Active Protocol: Activity Type Activity Date Activity User E-sign Co-sign Detail Recorded Client Recorded Date Recorded By Document 12/29/23 15:52 KW fghj 12/29/23 15:53 KW 12/29/23 15:52 Wound Care Center Nurse 3 #1- sacral -Primary Dressing Applied Aquacel AG 4x4 -Primary Dressing Covered/Secured with Dry Gauze, Secured with Tape -Aquacel AG 4x4 1 Pain Scale: 0-10 Numeric Is Patient Pain Free? Yes - Visit Discharge Discharge Condition Stable Ambulatory Status Wheelchair Transportation Private Auto Medication Reconcilliation completed & No provided to patient/care provider Clinical Summary of Care Provided Yes Assessment/Plan Assessment/Plan (1) Sacral decubitus ulcer, stage IV: CODE(S): L89.154 - Pressure ulcer of sacral region, stage 4 (2) Osteomyelitis: CODE(S): M86.9 - Osteomyelitis, unspecified QUALIFIERS: Osteomyelitis type: other chronic Osteomyelitis location: other site Qualified Code(s): M86.68 - Other chronic osteomyelitis, other site (3) Immobility syndrome (paraplegic): CODE(S): M62.3 - Immobility syndrome (paraplegic) (4) Multiple sclerosis: CODE(S): G35 - Multiple sclerosis (5) Long-term current use of rituximab: CODE(S): Z79.620 - assisted (current) use of immunosuppressive biologic (6) Former smoker: CODE(S): Z87.891 - Personal history of nicotine dependence PLAN: Plan Patient evaluated at the wound healing center today. Wound care - Dakin's 0.25% moistened gauze but alternate every other day with a Silver dressing covered with gauze/ABD. Wash wound with soap and water at the time of dressing changes. Kocuria kristinae in the bone is positive for osteomyelitis. It is significant and should be treated since it didn't show up in the soft tissue culture. She was placed on Augmentin per Infectious Diseases recommendation. She has finished the Augmentin. On 10/30/22, Prealbumin was 20.1. Encourage nutritional supplementation with protein to help the healing process. summer she had diagnosis of osteomyelitis. She was placed on IV antibiotics per Infectious Diseases for 6 weeks until January,. This is important because it establishes a timeline for chronic refractory osteomyelitis. She underwent HBO treatments (44 treatments) for chronic refractory osteomyelitis. The HBO treatments showed improvement in her ulcer as it has been noted with granulation tissue over the bone. Now that there is granulation tissue over the bone and the sides of the ulcer are showing some healing contraction, I would like to see some evidence of the healing getting more superficial. Hopefully the Silver dressing alternating with Dakin's dressing changes can improve the healing. Discussed a date in the future that would decide if more surgery is needed, another excision of the pressure ulcer along with partial ostectomy. At this time she is not interested in a flap. Wound culture 11/19/23 was positive for Staphylococcus capitis and Corynebacterium minutissimum which was treated with Augmentin. The symptoms of fatigue, and fever and chills resolved after being on the antibiotic of a couple days. She has completed the antibiotic. UA and C&S Were negative. Followup 2 weeks. Instructed to call or come in sooner if develop any concerns.
--- NOTE | 2023-12-30 09:41 | WC ---
PHOTO 12/29/23 [facility]CRAL
[2024-01-14 15:16] VITALS: BP 129/87; PULSE 75; RESP 18; TEMP 36.3; BMI 22.8
--- NOTE | 2024-01-14 16:48 | PCM.WC.PN ---
History of Present Illness Date of Service: 01/14/24 Chief Complaint: Sacral pressure sore, Stage IV. History of Wound: Surgery 12/18/22 - Excision sacral pressure sore, Stage IV, with partial ostectomy for osteomyelitis. Wound care - Dakin's alternated with Silver dressings. Operative Culture - Corynebacterium striatum in the soft tissue and Kocuria kristinae in the bone. Was treated perioperatively with Augmentin and Flagyl for a preop culture positive for Enterococcus faecalis and Anaerobes. Kocuria kristinae in the bone is positive for osteomyelitis. It is significant and should be treated since it didn't show up in the soft tissue culture. She was placed on Augmentin and has finished them. Pathology - Negative for acute osteomyelitis. Chronic reparative and reactive change. Prealbumin from 10/30/22 was 20.1. Encourage nutritional supplementation with protein to help the healing process. MRI Pelvis from 08/21/22 - 2.8 cm decubitus ulcer at the base of the coccyx without discrete evidence of osteomyelitis. At her Wound Center visit on 02/10/23, she had urinary symptoms. A Urinalysis was done which did not report any WBC, and no Bacteria reported. The Leukocyte Esterase was 500. She was started on Cipro and has finished them. A Urine Culture showed Klebsiella pneumoniae. It is sensitive to Cipro. Today her urinary symptoms have resolved. In the Summer, 2021 she had diagnosis of osteomyelitis. She was placed on IV antibiotics per Infectious Diseases for 6 weeks until January,. This is important because it establishes a timeline for chronic refractory osteomyelitis. She underwent HBO treatments for chronic refractory osteomyelitis and finished without problems. She tolerated the treatments. Today she denies fever. Her appetite is good. Progress of Wound: Ulcer is stable, the tunnel depth is deeper today, but the ulcer opening is slightly smaller which can impact the measurement of the tunnel depth. She denies having issues packing the ulcer at this time. Objective Data Objective Data Vital Signs: Vital Signs Temp Pulse Resp BP 97.4 F L 75 18 129/87 H 01/14/24 15:16 01/14/24 15:16 01/14/24 15:16 01/14/24 15:16 Weight: 145 lb 9.6 oz Body Mass Index (BMI) 22.8 Charges/Coding Procedures Integumentary 111xxx-113xx: 24186 Tran musc/fascia 20 sq cm/< Debridement Note Debridement Note Wound debrided: #1 Sacral area. Laterality: Not Applicable Wound Grade/Stage: IV. Type of Debridement: Excisional debridement Anesthesia Used: 5% Lidocaine Gel Depth: Down to and including healthy tissue, in the subcutaneous layer, to muscle and to bone (bone is palpable but not exposed.) Percentage of wound debrided: 100 Instrument Used: 7mm curette Tissue Removed: subcutaneous tissue slough, into the muscle. Severity: Fat Layer Exposed (muscle is exposed. Bone is palpable but not exposed.) Amount of bleeding with debridement: Mild Bleeding Controlled with: Pressure and Compression and gauze Patient tolerated procedure: Patient tolerated procedure well Post-Debridement Measurements and Additional Note: Post-Debridement Measurements/Treatment WC - Nurse 1 - General Ulcer Assessment Start: 12/29/23 15:04 Freq: Status: Active Protocol: LOWJOHNNIE Activity Type Activity Date Activity User E-sign Co-sign Detail Recorded Client Recorded Date Recorded By Document 12/29/23 15:04 KW [email or web address] 12/29/23 15:14 KW Document 01/14/24 15:16 DL [id number] 01/14/24 15:19 DL 12/29/23 01/14/24 15:04 15:16 - Today's Visit Information Type of service Follow-up Visit Follow-up Visit (Physician/FOAM RUBBER CURER (Physician/FOAM RUBBER CURER ) ) Arrival Mode Wheelchair Ambulatory Transfer Assistance None None Patient Identification Verified (Name & Yes Yes ) Patient Requires Transmission-Based No No Precautions Height and Weight Body Mass Index (BMI) 22.8 22.8 BMI Classification Normal Normal Vital Signs Temperature (97.8 F-99.1 F) 97.5 F L 97.4 F L Temperature Source Temporal Temporal Pulse Rate (60-100) 84 75 Pulse Location Monitor Monitor Respiratory Rate (12-18) 18 18 Respiratory rate source Observation Observation Blood Pressure (90/60-120/80) 118/66 129/87 H Blood Pressure Mean (mm Hg) 83 101 Source Monitor Monitor Position Semi-Fowlers Blood Pressure Location Left Arm History Since Last Visit- (Skip if this is Patient's initial visit) Have you changed medications since your No No last visit? Any new allergies or adverse reactions No No Had a fall/change in ADL's that may No No increase risk of falls Signs or symptoms of abuse and/or No No neglect since last visit Have you been in the hospital since your No No last visit? Has dressing in place as prescribed Yes Yes Has compression in place as prescribed N/A No Has offloadiing in place as prescribed Yes No Experienced any changes in pain level or No No management Pain Scale: 0-10 Numeric Is Patient Pain Free? Yes Yes WC - Nurse 1 - General Ulcer Measurement Start: 12/29/23 15:04 Freq: Status: Active Protocol: Activity Type Activity Date Activity User E-sign Co-sign Detail Recorded Client Recorded Date Recorded By Document 12/29/23 15:04 KW [email or web address] 12/29/23 15:14 KW Document 01/14/24 15:16 DL [id number] 01/14/24 15:19 DL 12/29/23 01/14/24 15:04 15:16 Wound Center Nurse 1 #1- sacral -Combined with other wound No -Current Size (cm) - Length 2.1 1.8 -Current Size (cm) - Width 0.2 0.4 -Current Size (cm) - Depth 4 4 -Total Square Cm 0.42 0.72 -Photo Taken Yes Yes -Tunneling No -Tunneling Position (O'clock) 12 -Tunneling Distance (cm) 2.2 -Undermining/Tunneling No -Circular Undermining No -Exudate Amt Medium Medium -Exudate Type Serosanguineous Serosanguineous -Wound Margin Distinct, Thickened & Outline Rolled Under Attached -Granulation Amt Medium (34-66%) Medium (34-66%) -Granulation Quality [place] -Slough/Fibrin Yes -Necrosis Amt Medium (34-66%) Medium (34-66%) -Necrotic Tissue Type Adherent Slough Adherent Slough -Structure Exposed N/A N/A -Texture (Neda-wound Skin Appearance) Scarring Assessed, Scarring -Moisture (Neda-wound Skin Appearance) No Abnormality Assessed -Color (Neda-wound Skin Appearance) No Abnormality Assessed -Temperature (Neda-wound Skin No Abnormality No Abnormality Appearance) (Pt Warm) (Pt Warm) -Tenderness on Palpation (Neda-wound No No Skin Appearance) -Ulcer Cleansing Soap and Water Wound Cleanser -Foul Odor after Cleansing No No -Anesthetic Used 5% Lidocaine Gel WC - Nurse 2 - General Ulcer CM Notes Start: 12/29/23 15:04 Freq: Status: Active Protocol: Activity Type Activity Date Activity User E-sign Co-sign Detail Recorded Client Recorded Date Recorded By Document 12/29/23 15:38 JF 0000 12/29/23 15:43 Document 01/14/24 15:27 GM [id number] 01/14/24 15:34 GM Edit Result 01/14/24 15:27 GM (1) [id number] 01/14/24 15:43 GM (1) #1- sacral - Clinical Debridement Subcutaneous => Muscle / Fascia - Tissue Removed Subcutaneous => Muscle - Wound/Ulcer Outcome => Not Healed - Ulcer Cleansing => Not Cleansed - Bleeding Controlled with => Pressure - Treatment Response => Procedure => Tolerated Well - Debridement - Subq, 1st 20sq cm Yes => - Debridement - Muscle / Fascia, 1st => Yes 20sq cm 12/29/23 01/14/24 15:38 15:27 Wound Center Nurse 2 #1- sacral -Time 15:38 15:27 -Correct Patient Yes Yes -Correct Side, Site, Position Yes Yes -Correct Procedure Yes Yes -Procedure Performed Yes Yes -Type of Procedure Debridement Debridement -Clinical Debridement Muscle / Fascia Muscle / Fascia -Tissue Removed Muscle,Fascia Muscle -Post Debridement (cm) - Length 2.0 2.0 -Post Debridement (cm) - Width 0.6 0.5 -Post Debridement (cm) - Depth 3.4 3.0 -Total Square (Post) (cm) 1.20 1.00 -Area of Debridement (cm) - Length 2.0 2.0 -Area of Debridement (cm) - Width 0.6 0.5 -Total Square (Area) (cm) 1.20 1.00 -Tunneling Yes Yes -Tunneling Position (O'clock) 12 12 -Tunneling Distance (cm) 3.6 4.9 -Undermining/Tunneling No -Circular Undermining No -Wound/Ulcer Outcome Not Healed Not Healed -Ulcer Cleansing Rinsed/ Not Cleansed Irrigated with Saline -Foul Odor after Cleansing No -Bioengineered Tissue No -Bleeding Controlled with Pressure Pressure -Treatment Response Procedure Procedure Tolerated Well Tolerated Well -Offloading No -Pressure Reduction Wheelchair cushion -Debridement - Muscle / Fascia, 1st Yes Yes 20sq cm Pain Scale: 0-10 Numeric Is Patient Pain Free? Yes Yes - Nurse 3 - General Ulcer D/C NN Start: 12/29/23 15:04 Freq: Status: Active Protocol: Activity Type Activity Date Activity User E-sign Co-sign Detail Recorded Client Recorded Date Recorded By Document 12/29/23 15:52 KW fghj 12/29/23 15:53 KW Document 01/14/24 15:49 RB [id number] 01/14/24 15:50 RB 12/29/23 01/14/24 15:52 15:49 Wound Care Center Nurse 3 #1- sacral -Ulcer Cleansing Wound Cleanser -Primary Dressing Applied Aquacel AG 4x4 -Other Dressing dakins moistened gauze -Primary Dressing Covered/Secured with Dry Gauze, Dry Gauze, Secured with Secured with Tape Tape -Aquacel AG 4x4 1 Treatment Response Procedure Tolerated Well Pain Scale: 0-10 Numeric Is Patient Pain Free? Yes Yes - Visit Discharge Discharge Condition Stable Stable Ambulatory Status Wheelchair Wheelchair Transportation Private Auto Private Auto Medication Reconcilliation completed & No No provided to patient/care provider Clinical Summary of Care Provided Yes Yes Assessment/Plan Assessment/Plan (1) Sacral decubitus ulcer, stage IV: CODE(S): L89.154 - Pressure ulcer of sacral region, stage 4 (2) Osteomyelitis: CODE(S): M86.9 - Osteomyelitis, unspecified QUALIFIERS: Osteomyelitis location: other site Osteomyelitis type: other chronic Qualified Code(s): M86.68 - Other chronic osteomyelitis, other site (3) Immobility syndrome (paraplegic): CODE(S): M62.3 - Immobility syndrome (paraplegic) (4) Multiple sclerosis: CODE(S): G35 - Multiple sclerosis (5) Long-term current use of rituximab: CODE(S): Z79.620 - half-way (current) use of immunosuppressive biologic (6) Former smoker: CODE(S): Z87.891 - Personal history of nicotine dependence PLAN: Plan Patient evaluated at the wound healing center today. Wound care - Dakin's 0.25% moistened gauze but alternate every other day with a Silver dressing covered with gauze/ABD. Wash wound with soap and water at the time of dressing changes. Kocuria kristinae in the bone is positive for osteomyelitis. It is significant and should be treated since it didn't show up in the soft tissue culture. She was placed on Augmentin per Infectious Diseases recommendation. She has finished the Augmentin. On 10/30/22, Prealbumin was 20.1. Encourage nutritional supplementation with protein to help the healing process. summer she had diagnosis of osteomyelitis. She was placed on IV antibiotics per Infectious Diseases for 6 weeks until January,. This is important because it establishes a timeline for chronic refractory osteomyelitis. She underwent HBO treatments (44 treatments) for chronic refractory osteomyelitis. The HBO treatments showed improvement in her ulcer as it has been noted with granulation tissue over the bone. Wound culture 11/19/23 was positive for Staphylococcus capitis and Corynebacterium minutissimum which was treated with Augmentin. The symptoms of fatigue, and fever and chills resolved after being on the antibiotic of a couple days. She has completed the antibiotic. UA and C&S Were negative. The ulcer healing has stalled. Will have her evaluated to see Dr. Villalta for further evaluation and potential surgical options. Will obtain labs before she sees Dr. Villalta. Ordered CMP, CBC/diff, Prealbumin and HgbA1c. Followup [address] Villalta. Instructed to call or come in sooner if develop any concerns.
--- NOTE | 2024-01-15 14:12 | WC ---
PHOTO 01/14/24 SACRAL
== END 2024-01-24 23:59 | disposition home or self-care (01) ==
LOC: WC 15:00
PROVIDERS: PCP Family Medicine; Referring Provider Nurse Practitioner; Visit Provider Nurse Practitioner Family
DX: L89.154 Pressure ulcer of sacral region, stage 4 (principal); G35 Multiple sclerosis; M86.68 Other chronic osteomyelitis, other site; M62.3 Immobility syndrome (paraplegic); Z79.620 Long term (current) use of immunosuppressive biologic; Z87.891 Personal history of nicotine dependence
CPT/HCPCS: 11042; 11043

== ENCOUNTER 2024-02-23 15:00 | Outpatient (RCR) | payer MEDICARE, SELFPAY ==
[2024-01-25 00:25] VITALS: BP 110/61; PULSE 85; RESP 20; TEMP 36.6; BMI 22.8
[2024-02-04 15:32] VITALS: BP 111/61; PULSE 95; RESP 19; TEMP 36.4; BMI 22.8
--- NOTE | 2024-02-04 16:46 | PCM.WC.PN ---
History of Present Illness Date of Service: 02/04/24 Chief Complaint: Sacral pressure sore, Stage IV. History of Wound: Surgery 12/18/22 - Excision sacral pressure sore, Stage IV, with partial ostectomy for osteomyelitis. Wound care - Dakin's alternated with Silver dressings. Operative Culture - Corynebacterium striatum in the soft tissue and Kocuria kristinae in the bone. Was treated perioperatively with Augmentin and Flagyl for a preop culture positive for Enterococcus faecalis and Anaerobes. Kocuria kristinae in the bone is positive for osteomyelitis. It is significant and should be treated since it didn't show up in the soft tissue culture. She was placed on Augmentin and has finished them. Pathology - Negative for acute osteomyelitis. Chronic reparative and reactive change. Prealbumin from 10/30/22 was 20.1. Encourage nutritional supplementation with protein to help the healing process. MRI Pelvis from 08/21/22 - 2.8 cm decubitus ulcer at the base of the coccyx without discrete evidence of osteomyelitis. At her Wound Center visit on 02/10/23, she had urinary symptoms. A Urinalysis was done which did not report any WBC, and no Bacteria reported. The Leukocyte Esterase was 500. She was started on Cipro and has finished them. A Urine Culture showed Klebsiella pneumoniae. It is sensitive to Cipro. Today her urinary symptoms have resolved. In the Summer, 2021 she had diagnosis of osteomyelitis. She was placed on IV antibiotics per Infectious Diseases for 6 weeks until January,. This is important because it establishes a timeline for chronic refractory osteomyelitis. She underwent HBO treatments for chronic refractory osteomyelitis and finished without problems. She tolerated the treatments. Today she denies fever. Her appetite is good. Progress of Wound: Ulcer opening is smaller and difficult to pack. The ulcer is stable, the tunnel depth is stable. Neda wound is clear. Objective Data Objective Data Vital Signs: Vital Signs Temp Pulse Resp BP 97.5 F L 95 19 H 111/61 02/04/24 15:32 02/04/24 15:32 02/04/24 15:32 02/04/24 15:32 Weight: 145 lb 9.6 oz Body Mass Index (BMI) 22.8 Charges/Coding Procedures Integumentary 111xxx-113xx: [id number] Tran musc/fascia 20 sq cm/< Debridement Note Debridement Note Wound debrided: #1 Sacral area. Laterality: Not Applicable Wound Grade/Stage: IV. Type of Debridement: Excisional debridement Anesthesia Used: 5% Lidocaine Gel Depth: Down to and including healthy tissue, in the subcutaneous layer, to muscle and to bone (bone is palpable but not exposed.) Percentage of wound debrided: 100 Instrument Used: 7mm curette and #10 blade Tissue Removed: subcutaneous tissue slough, into the muscle. Severity: Fat Layer Exposed (muscle is exposed. Bone is palpable but not exposed.) Amount of bleeding with debridement: Mild Bleeding Controlled with: Pressure and Compression and gauze Patient tolerated procedure: Patient tolerated procedure well Debridement Free Text: Used #10 scalpel to make the ulcer opening larger to help with packing the ulcer. (injected 3 ml of lidocaine 1% with epi to numb and help with bleeding) Post-Debridement Measurements and Additional Note: Post-Debridement Measurements/Treatment WC - Nurse 1 - General Ulcer Assessment Start: 02/04/24 15:31 Freq: Status: Active Protocol: BENIGNO Activity Type Activity Date Activity User E-sign Co-sign Detail Recorded Client Recorded Date Recorded By Document 02/04/24 15:32 DL [id number] 02/04/24 15:43 DL 02/04/24 15:32 - Today's Visit Information Type of service Follow-up Visit (Physician/HOME VISIT[employer] [facility] [employer] [facility] ) Arrival Mode Wheelchair Transfer Assistance None Patient Identification Verified (Name & Yes ) Patient Requires Transmission-Based No Precautions Height and Weight Body Mass Index (BMI) 22.8 BMI Classification Normal Vital Signs Temperature (97.8 F-99.1 F) 97.5 F L Temperature Source Temporal Pulse Rate (60-100) 95 Pulse Location Monitor Respiratory Rate (12-18) 19 H Respiratory rate source Observation Blood Pressure (90/60-120/80) 111/61 Blood Pressure Mean (mm Hg) 77 Source Monitor History Since Last Visit- (Skip if this is Patient's initial visit) Have you changed medications since your No last visit? Any new allergies or adverse reactions No Had a fall/change in ADL's that may No increase risk of falls Signs or symptoms of abuse and/or No neglect since last visit Have you been in the hospital since your No last visit? Has dressing in place as prescribed Yes Has compression in place as prescribed N/A Has offloadiing in place as prescribed Yes Experienced any changes in pain level or No management Pain Scale: 0-10 Numeric Is Patient Pain Free? Yes WC - Nurse 1 - General Ulcer Measurement Start: 02/04/24 15:31 Freq: Status: Active Protocol: Activity Type Activity Date Activity User E-sign Co-sign Detail Recorded Client Recorded Date Recorded By Document 02/04/24 15:32 DL [id number] 02/04/24 15:43 DL 02/04/24 15:32 Wound Center Nurse 1 #1- sacral -Current Size (cm) - Length 1 -Current Size (cm) - Width 0.3 -Current Size (cm) - Depth 3.5 -Total Square Cm 0.3 -Photo Taken Yes -Exudate Amt Medium -Exudate Type Serosanguineous -Wound Margin Distinct, Outline Attached -Granulation Amt Large (67-100%) -Granulation Quality [place] -Necrosis Amt None Present (0 %) -Structure Exposed N/A -Texture (Neda-wound Skin Appearance) Scarring -Moisture (Neda-wound Skin Appearance) No Abnormality -Color (Neda-wound Skin Appearance) No Abnormality -Ulcer Cleansing Soap and Water -Foul Odor after Cleansing No WC - Nurse 2 - General Ulcer CM Notes Start: 02/04/24 15:31 Freq: Status: Active Protocol: Activity Type Activity Date Activity User E-sign Co-sign Detail Recorded Client Recorded Date Recorded By Document 02/04/24 15:57 [id number] 02/04/24 16:13 02/04/24 15:57 Wound Center Nurse 2 -Time 15:57 -Correct Patient Yes -Correct Side, Site, Position Yes -Correct Procedure Yes -Procedure Performed Yes -Type of Procedure Debridement -Clinical Debridement Muscle / Fascia -Tissue Removed Muscle -Post Debridement (cm) - Length 3.0 -Post Debridement (cm) - Width 0.8 -Post Debridement (cm) - Depth 2.3 -Total Square (Post) (cm) 2.40 -Area of Debridement (cm) - Length 3.0 -Area of Debridement (cm) - Width 0.8 -Total Square (Area) (cm) 2.40 -Tunneling Yes -Tunneling Position (O'clock) 12 -Tunneling Distance (cm) 4 -Undermining/Tunneling No -Circular Undermining No -Wound/Ulcer Outcome Not Healed -Ulcer Cleansing Rinsed/ Irrigated with Saline -Foul Odor after Cleansing No -Bioengineered Tissue No -Bleeding Controlled with Pressure -Treatment Response Procedure Tolerated Well -Debridement - Muscle / Fascia, 1st Yes 20sq cm Pain Scale: 0-10 Numeric Is Patient Pain Free? Yes WC - Nurse 3 - General Ulcer D/C NN Start: 02/04/24 15:31 Freq: Status: Active Protocol: Activity Type Activity Date Activity User E-sign Co-sign Detail Recorded Client Recorded Date Recorded By Document 02/04/24 16:21 [id number] 02/04/24 16:23 02/04/24 16:21 Wound Care Center Nurse 3 #1- sacral -Other Dressing DAKINS -Primary Dressing Covered/Secured with Dry Gauze & Roll Gauze, Secured with Tape Pain Scale: 0-10 Numeric Is Patient Pain Free? Yes Assessment/Plan Assessment/Plan (1) Sacral decubitus ulcer, stage IV: CODE(S): L89.154 - Pressure ulcer of sacral region, stage 4 (2) Osteomyelitis: CODE(S): M86.9 - Osteomyelitis, unspecified QUALIFIERS: Osteomyelitis type: other chronic Osteomyelitis location: other site Qualified Code(s): M86.68 - Other chronic osteomyelitis, other site (3) Immobility syndrome (paraplegic): CODE(S): M62.3 - Immobility syndrome (paraplegic) (4) Multiple sclerosis: CODE(S): G35 - Multiple sclerosis (5) Long-term current use of rituximab: CODE(S): Z79.620 - sugar boiler (current) use of immunosuppressive biologic (6) Former smoker: CODE(S): Z87.891 - Personal history of nicotine dependence PLAN: Plan Patient evaluated at the wound healing center today. Wound care - Dakin's 0.25% moistened gauze but alternate every other day with a Silver dressing covered with gauze/ABD. Wash wound with soap and water at the time of dressing changes. Kocuria kristinae in the bone is positive for osteomyelitis. It is significant and should be treated since it didn't show up in the soft tissue culture. She was placed on Augmentin per Infectious Diseases recommendation. She has finished the Augmentin. On 10/30/22, Prealbumin was 20.1. Encourage nutritional supplementation with protein to help the healing process. summer she had diagnosis of osteomyelitis. She was placed on IV antibiotics per Infectious Diseases for 6 weeks until January,. This is important because it establishes a timeline for chronic refractory osteomyelitis. She underwent HBO treatments (44 treatments) for chronic refractory osteomyelitis. The HBO treatments showed improvement in her ulcer as it has been noted with granulation tissue over the bone. Wound culture 11/19/23 was positive for Staphylococcus capitis and Corynebacterium minutissimum which was treated with Augmentin. The symptoms of fatigue, and fever and chills resolved after being on the antibiotic of a couple days. She has completed the antibiotic. UA and C&S Were negative. The ulcer healing has stalled. Will have her evaluated to see Dr. Villalta for further evaluation and potential surgical options. Will obtain labs before she sees Dr. Villalta. Ordered CMP, CBC/diff, Prealbumin and HgbA1c. Followup [address] Villalta. Instructed to call or come in sooner if develop any concerns.
[2024-02-23 15:22] VITALS: BP 125/65; PULSE 76; RESP 15; TEMP 36.9; BMI 22.8
--- NOTE | 2024-02-24 13:25 | PCM.WC.HP ---
History of Present Illness Date of Service: 02/23/24 Chief Complaint: Sacral pressure sore, Stage IV. History of Wound: HPI from Dr. Villalta, 23 February 2024: Rocío Coronado is a 48-year-old female with a complicated past medical history who presents for stage IV sacral wound. Patient reports that she became sick with COVID in April 2020, and on 's Day (2020, she suddenly lost the ability to walk/move lower extremities as well as the ability to feel below her lower thoracic spine dermatomes. She had extensive workup for MS and went on several rounds of Solu-Medrol IV as an inpatient at the [facility] [place]. 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 She has been paraplegic ever since, and has dealt with chronic stage IV sacral ulcer for over a year. The patient is quite active and has adolescent children with whom she spends a significant amount of time. 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 Of note, Dr. Gregory who was formerly part of our practice performed the following surgery with the following postoperative course (per chart review): Surgery 12/18/22 - Excision sacral pressure sore, Stage IV, with partial ostectomy for osteomyelitis. Wound care - Dakin's alternated with Silver dressings. Operative Culture - Corynebacterium striatum in the soft tissue and Kocuria kristinae in the bone. Was treated perioperatively with Augmentin and Flagyl for a preop culture positive for Enterococcus faecalis and Anaerobes. Kocuria kristinae in the bone is positive for osteomyelitis. It is significant and should be treated since it didn't show up in the soft tissue culture. She was placed on Augmentin and has finished them. Pathology - Negative for acute osteomyelitis. Chronic reparative and reactive change. Prealbumin from 10/30/22 was 20.1. Encourage nutritional supplementation with protein to help the healing process. MRI Pelvis from 08/21/22 - 2.8 cm decubitus ulcer at the base of the coccyx without discrete evidence of osteomyelitis. At her Wound Center visit on 02/10/23, she had urinary symptoms. A Urinalysis was done which did not report any WBC, and no Bacteria reported. The Leukocyte Esterase was 500. She was started on Cipro and has finished them. A Urine Culture showed Klebsiella pneumoniae. It is sensitive to Cipro. Today her urinary symptoms have resolved. In the 2021 she had diagnosis of osteomyelitis. She was placed on IV antibiotics per Infectious Diseases for 6 weeks until January,. This is important because it establishes a timeline for chronic refractory osteomyelitis. She underwent HBO treatments for chronic refractory osteomyelitis and finished without problems. She tolerated the treatments. Today she denies fever. Her appetite is good. Progress of Wound: Current encounter, 23 February 2024: Patient reports that she has been compliant with her daily wound care regimen and does not have any fevers or chills or signs of acute infection at this time. She has an eggshell bed but does not have an air bed/hospital bed and does not want 1 at this time. She tries to pressure offload it, and has a wheelchair that she can stand and like a chariot. Of note she has reasonable control of her bowels and does manual disimpaction as needed. She rarely has any stool around the wound. She also self caths and is seeing a urologist for her oxybutynin and potential Botox for her bladder spasms. She has been taking great care with regards to nutrition. She cooks and cleans for her family. [facility] Medical History UTI (urinary tract infection) Encounter for management of wound VAC DDD (degenerative disc disease), thoracic Uses wheelchair Self-catheterizes urinary bladder Migraine headache COVID Myelitis History of edema Hypotension Hx of tear of ACL (anterior cruciate ligament) Long-term current use of rituximab Former smoker Multiple sclerosis Osteomyelitis Immobility syndrome (paraplegic) Sacral decubitus ulcer, stage IV Home Medications ?Medication ?Instructions ?Recorded ?Last Taken ?Type gabapentin 300 mg capsule 300 mg PO TID 06/26/22 12/18/22 04:00 History (Neurontin) multivitamin 1 tab PO DAILY 06/26/22 Unknown History oxybutynin chloride 5 mg tablet 10 mg PO QHS 06/26/22 Unknown History mirabegron 25 mg tablet,extended 25 mg PO QHS 12/11/22 Unknown History release 24 hr (Myrbetriq) arginine 7 gram-glutam 7 1 packet PO BIDCM #0 ea 12/19/22 Unknown Rx gram-CaHMB 1.5 [id number]-grfmo-xp-min oral pwd pkt metronidazole 500 mg tablet 500 mg PO TID 10 days #30 tabs 12/19/22 Unknown Rx oxycodone-acetaminophen 5 mg-325 1 tab PO 4X/DAY PRN PRN pain 12/19/22 Unknown Rx mg tablet (Percocet) (scale score 7-10) 7 days #28 tabs baclofen 10 mg tablet 20 mg (2 x 10 mg) PO Q6H PRN 01/20/23 Unknown Rx muscle spasm 15 days #120 tabs fluconazole 150 mg tablet 150 mg PO DAILY #14 tabs 01/20/23 Unknown Rx (Diflucan) ciprofloxacin HCl 500 mg tablet 500 mg PO BID 7 days #14 tabs 02/10/23 Unknown Rx (Cipro) amoxicillin 875 mg-potassium 1 tab PO BID 14 days #28 tabs 05/12/23 Unknown Rx clavulanate 125 mg tablet cefadroxil 500 mg capsule 500 mg PO BID 7 days #14 caps 11/19/23 Unknown Rx Allergy/AdvReac Type Severity Reaction Status Date / Time doxycycline Allergy Nausea/Vom/ Verified 12/11/22 14:03 Diarrhea Surgical History Hx of hysterectomy Social History Smoking Status: Former smoker Vital Signs Vital Signs Vital Signs: 02/23/24 15:22 Temperature 98.4 F Temperature Source Temporal Pulse Rate 76 Respiratory Rate 15 Blood Pressure 125/65 H Blood Pressure Mean 85 Blood Pressure Source Monitor Blood Pressure Position Sitting Blood Pressure Location Right Arm Weight Weight: 145 lb 9.6 oz Body Mass Index (BMI) 22.8 Physical Exam Narrative Sacral wound Wound is 2 x 1 cm with exposed fascia (bone is granulated) at the base and the wound tunnels 5 cm superiorly There is fibrinous exudate and hypertrophic granulation tissue and biofilm within the wound Const alert and oriented x3 Eyes EOMs intact bilaterally Neck full ROM Resp normal respiratory effort Cardio regular rate GI non-distended GI Narrative: No ostomy Debridement Note Debridement Note Wound debrided: Sacral wound Laterality: Not Applicable Type of Debridement: Excisional debridement Anesthesia Used: 4% Lidocaine Solution Depth: to muscle Percentage of wound debrided: 100 Instrument Used: 7mm curette Severity: Necrosis of Muscle Amount of bleeding with debridement: Mild Bleeding Controlled with: Compression and gauze Patient tolerated procedure: Patient tolerated procedure well Charges/Coding Visit Charges Office Visits / Consults: 97777 OV L5 New 60min (Extensive chart review, physical exam, and I ordered advanced imaging. Extensive counseling. ) Procedures Integumentary 111xxx-113xx: 03680 Tran musc/fascia 20 sq cm/< Assessment/Plan Assessment/Plan (1) Sacral decubitus ulcer, stage IV: CODE(S): L89.154 - Pressure ulcer of sacral region, stage 4 PLAN: I talked the patient extensively today about surgical interventions and postoperative pressure offloading protocols and need for hospital admission. I talked her about the risk of doing a flap reconstruction and then it not working and subsequently a larger wound, however I talked her about the potential for success as well. I think the patient overall is an ideal candidate for reconstruction, but we need to discuss further the postoperative protocol as she is hesitant at this point given her responsibilities at home and at work (she would have trouble not sitting). She is also resistant to an air bed. We are going to further discuss the above-noted issues together and come up with a plan at her next appointment, but in the meantime she is going to continue her wound care regiment and she will get an MRI for surgical planning. Follow-up in 3 weeks to discuss results of the MRI and for surgical planning (debridement, followed by likely irrigating wound VAC and admission followed by another debridement with flap reconstruction)
== END 2024-02-23 23:59 | disposition home or self-care (01) ==
LOC: WC 15:00
PROVIDERS: PCP Family Medicine; Referring Provider Nurse Practitioner; Visit Provider Nurse Practitioner Family
DX: L89.154 Pressure ulcer of sacral region, stage 4 (principal); G35 Multiple sclerosis; M86.9 Osteomyelitis, unspecified; Z87.891 Personal history of nicotine dependence; Z86.718 Personal history of other venous thrombosis and embolism; N32.89 Other specified disorders of bladder; Z86.16 Personal history of COVID-19; M62.3 Immobility syndrome (paraplegic); Z79.620 Long term (current) use of immunosuppressive biologic
CPT/HCPCS: 11043

== ENCOUNTER 2024-03-15 15:04 | Outpatient (RCR) | payer MEDICARE, SELFPAY ==
[2024-02-24 00:13] VITALS: BP 110/61; PULSE 85; RESP 20; TEMP 36.6; BMI 22.8
[2024-03-15 15:25] VITALS: BP 119/75; PULSE 109; RESP 16; TEMP 37; BMI 22.8
--- NOTE | 2024-03-16 06:51 | PN.PCM_ITS ---
History of Present Illness Date of Service: 03/15/24 Chief Complaint: Sacral pressure sore, Stage IV. Subjective Subjective Chief Complaint: Sacral pressure sore, Stage IV. History of Wound: HPI from Dr. Villalta, 23 February 2024: Rocío Coronado is a 48-year-old female with a complicated past medical history who presents for stage IV sacral wound. Patient reports that she became sick with COVID in April 2020, and on 's Day (2020, she suddenly lost the ability to walk/move lower extremities as well as the ability to feel below her lower thoracic spine dermatomes. She had extensive workup for MS and went on several rounds of Solu-Medrol IV as an inpatient at the [facility]. 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 She has been paraplegic ever since, and has dealt with chronic stage IV sacral ulcer for over a year. The patient is quite active and has adolescent children with whom she spends a significant amount of time. 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 Of note, Dr. Gregory who was formerly part of our practice performed the following surgery with the following postoperative course (per chart review): Surgery 12/18/22 - Excision sacral pressure sore, Stage IV, with partial ostectomy for osteomyelitis. Wound care - Dakin's alternated with Silver dressings. Operative Culture - Corynebacterium striatum in the soft tissue and Kocuria kristinae in the bone. Was treated perioperatively with Augmentin and Flagyl for a preop culture positive for Enterococcus faecalis and Anaerobes. Kocuria kristinae in the bone is positive for osteomyelitis. It is significant and should be treated since it didn't show up in the soft tissue culture. She was placed on Augmentin and has finished them. Pathology - Negative for acute osteomyelitis. Chronic reparative and reactive change. Prealbumin from 10/30/22 was 20.1. Encourage nutritional supplementation with protein to help the healing process. MRI Pelvis from 08/21/22 - 2.8 cm decubitus ulcer at the base of the coccyx without discrete evidence of osteomyelitis. At her Wound Center visit on 02/10/23, she had urinary symptoms. A Urinalysis was done which did not report any WBC, and no Bacteria reported. The Leukocyte Esterase was 500. She was started on Cipro and has finished them. A Urine Culture showed Klebsiella pneumoniae. It is sensitive to Cipro. Today her urinary symptoms have resolved. In the Summer, 2021 she had diagnosis of osteomyelitis. She was placed on IV antibiotics per Infectious Diseases for 6 weeks until January,. This is important because it establishes a timeline for chronic refractory osteomyelitis. She underwent HBO treatments for chronic refractory osteomyelitis and finished without problems. She tolerated the treatments. Today she denies fever. Her appetite is good. 23 February 2024: Patient reports that she has been compliant with her daily wound care regimen and does not have any fevers or chills or signs of acute infection at this time. She has an eggshell bed but does not have an air bed/hospital bed and does not want 1 at this time. She tries to pressure offload it, and has a wheelchair that she can stand and like a chariot. Of note she has reasonable control of her bowels and does manual disimpaction as needed. She rarely has any stool around the wound. She also self caths and is seeing a urologist for her oxybutynin and potential Botox for her bladder spasms. She has been taking great care with regards to nutrition. She cooks and cleans for her family. Current encounter, 15 Mar 2024: Doing well with dressing changes. She has an appointment with Dr. Ferguson from hematology tomorrow to address Eliquis (patient stopped Eliquis on her own) and a plan going forward. Patient reports that she does not want to have surgery until after the first of the year as her is heavily involved in hunting season currently. She recently had nutrition labs and her albumin was 3.8 and her prealbumin was 17. She is continuing a high-protein diet. She is also continuing pressure offloading and now has a pressure offloading bed at home. Objective Data Objective Data Vital Signs: Vital Signs Temp Pulse Resp BP O2 Del Method 98.6 F 109 H 16 119/75 Room Air 03/15/24 15:25 03/15/24 15:25 03/15/24 15:25 03/15/24 15:25 03/15/24 15:25 Oxygen Delivery Method Room Air Weight: 145 lb 9.6 oz Body Mass Index (BMI) 22.8 Charges/Coding Procedures Integumentary 111xxx-113xx: [id number] Tran musc/fascia 20 sq cm/< Physical Exam Narrative Sacral wound Wound is 2 x 1 cm with exposed fascia (bone is granulated) at the base and the wound tunnels 0.5 cm superiorly There is fibrinous exudate and hypertrophic granulation tissue and biofilm within the wound Const alert and oriented x3 Eyes EOMs intact bilaterally Neck full ROM Resp normal respiratory effort Cardio regular rate GI non-distended GI Narrative: No ostomy Debridement Note Debridement Note Wound debrided: Sacral wound Laterality: Not Applicable Type of Debridement: Excisional debridement Anesthesia Used: 4% Lidocaine Solution Depth: to muscle Percentage of wound debrided: 100 Instrument Used: 5mm curette Severity: Necrosis of Muscle Bleeding Controlled with: Compression and gauze Patient tolerated procedure: Patient tolerated procedure well Post-Debridement Measurements and Additional Note: Post-Debridement Measurements/Treatment WC - Nurse 1 - General Ulcer Assessment Start: 03/15/24 15:25 Freq: Status: Active Protocol: BENIGNO Activity Type Activity Date Activity User E-sign Co-sign Detail Recorded Client Recorded Date Recorded By Document 03/15/24 15:25 ML [id number] 03/15/24 15:31 ML 03/15/24 15:25 WC - Today's Visit Information Type of service Follow-up Visit (Physician/VEST TAILOR ) Arrival Mode Wheelchair Transfer Assistance None Patient Identification Verified (Name & Yes ) Patient Requires Transmission-Based No Precautions Height and Weight Weight Measurement Method Estimated by Patient Body Mass Index (BMI) 22.8 BMI Classification Normal Vital Signs Temperature (97.8 F-99.1 F) 98.6 F Temperature Source Temporal Pulse Rate (60-100) 109 H Pulse Location Monitor Respiratory Rate (12-18) 16 Respiratory rate source Observation Oxygen Delivery Method Room Air Blood Pressure (90/60-120/80) 119/75 Blood Pressure Mean (mm Hg) 89 Source Monitor Position Sitting Blood Pressure Location Right Arm History Since Last Visit- (Skip if this is Patient's initial visit) Have you changed medications since your No last visit? Any new allergies or adverse reactions No Had a fall/change in ADL's that may No increase risk of falls Signs or symptoms of abuse and/or No neglect since last visit Have you been in the hospital since your No last visit? Has dressing in place as prescribed Yes Has compression in place as prescribed N/A Has offloadiing in place as prescribed N/A Experienced any changes in pain level or No management Left Footwear Regular Shoe Right Footwear Regular Shoe Pain Scale: 0-10 Numeric Is Patient Pain Free? Yes WC - Nurse 1 - General Ulcer Measurement Start: 03/15/24 15:25 Freq: Status: Active Protocol: Activity Type Activity Date Activity User E-sign Co-sign Detail Recorded Client Recorded Date Recorded By Document 03/15/24 15:25 [id number] 03/15/24 15:31 ML 03/15/24 15:25 Wound Center Nurse 1 #1- sacral -Current Size (cm) - Length 2 -Current Size (cm) - Width 0.1 -Current Size (cm) - Depth 5 -Total Square Cm 0.2 -Tunneling Yes -Tunneling Position (O'clock) 12 -Tunneling Distance (cm) 5 -Undermining/Tunneling No -Circular Undermining No -Exudate Amt Medium -Exudate Type Serosanguineous -Wound Margin Distinct, Outline Attached -Granulation Amt Large (67-100%) -Granulation Quality Red -Structure Exposed Bone -Texture (Neda-wound Skin Appearance) Assessed, Scarring -Moisture (Neda-wound Skin Appearance) Assessed -Color (Neda-wound Skin Appearance) Assessed -Temperature (Neda-wound Skin No Abnormality Appearance) (Pt Warm) -Tenderness on Palpation (Neda-wound No Skin Appearance) -Ulcer Cleansing Soap and Water -Foul Odor after Cleansing No WC - Nurse 2 - General Ulcer CM Notes Start: 03/15/24 15:25 Freq: Status: Active Protocol: Activity Type Activity Date Activity User E-sign Co-sign Detail Recorded Client Recorded Date Recorded By Document 03/15/24 16:03 [id number] 03/15/24 16:11 JF 03/15/24 16:03 Wound Center Nurse 2 -Time 16:06 -Correct Patient Yes -Correct Side, Site, Position Yes -Correct Procedure Yes -Procedure Performed Yes -Type of Procedure Debridement -Clinical Debridement Muscle / Fascia -Tissue Removed Muscle,Fascia -Post Debridement (cm) - Length 2 -Post Debridement (cm) - Width 1.0 -Post Debridement (cm) - Depth 5.0 -Total Square (Post) (cm) 2.0 -Area of Debridement (cm) - Length 2 -Area of Debridement (cm) - Width 1.0 -Total Square (Area) (cm) 2.0 -Tunneling No -Undermining/Tunneling No -Circular Undermining No -Wound/Ulcer Outcome Not Healed -Ulcer Cleansing Rinsed/ Irrigated with Saline -Foul Odor after Cleansing No -Bioengineered Tissue No -Bleeding Controlled with Pressure -Treatment Response Procedure Tolerated Well -Offloading No -Assistive Device(s) Wheelchair -Debridement - Muscle / Fascia, 1st Yes 20sq cm Pain Scale: 0-10 Numeric Is Patient Pain Free? Yes WC - Nurse 3 - General Ulcer D/C NN Start: 03/15/24 15:25 Freq: Status: Active Protocol: Activity Type Activity Date Activity User E-sign Co-sign Detail Recorded Client Recorded Date Recorded By Document 03/15/24 16:35 [facility] [id number] 03/15/24 16:36 [facility] 03/15/24 16:35 Wound Care Center Nurse 3 #1- sacral -Ulcer Cleansing Rinsed/ Irrigated with Saline -Foul Odor after Cleansing No -Other Dressing dakins moist gauze -Primary Dressing Covered/Secured with Secured with Tape -Other Covering abd Treatment Response Procedure Tolerated Well Pain Scale: 0-10 Numeric Is Patient Pain Free? Yes WC - Visit Discharge Discharge Condition Stable Ambulatory Status Ambulatory, Wheelchair Transportation Private Auto Assessment/Plan Assessment/Plan (1) Sacral decubitus ulcer, stage IV: CODE(S): L89.154 - Pressure ulcer of sacral region, stage 4 PLAN: I talked the patient extensively today about surgical interventions and postoperative pressure offloading protocols and need for hospital admission. I talked her about the risk of doing a flap reconstruction and then it not working and subsequently a larger wound, however I talked her about the potential for success as well. I think the patient overall is an ideal candidate for reconstruction, but we need to discuss further the postoperative protocol as she is hesitant at this point given her responsibilities at home and at work (she would have trouble not sitting). We are going to further discuss the above-noted issues together at the upcoming appointment, but in the meantime she is going to continue her wound care regiment and she will get an MRI for surgical planning (scheduled this month). Follow-up in 3 weeks to discuss results of the MRI and for surgical planning (debridement, followed by likely irrigating wound VAC and admission followed by another debridement with flap reconstruction) and further results of her hematology appointment/referral.
== END 2024-03-25 23:59 | disposition home or self-care (01) ==
LOC: WC 15:04
PROVIDERS: PCP Family Medicine; Referring Provider Nurse Practitioner; Visit Provider Nurse Practitioner Family
DX: L89.154 Pressure ulcer of sacral region, stage 4 (principal); G82.20 Paraplegia, unspecified; Z86.718 Personal history of other venous thrombosis and embolism; Z86.16 Personal history of COVID-19
CPT/HCPCS: 11043

== ENCOUNTER 2024-04-26 15:00 | Outpatient (RCR) | payer MEDICARE, SELFPAY ==
[2024-04-07 13:33] VITALS: BP 115/46; PULSE 73; RESP 16; TEMP 36.9
--- NOTE | 2024-04-07 16:06 | PCM.WC.PN ---
History of Present Illness Date of Service: 04/07/24 Chief Complaint: Sacral pressure sore, Stage IV. History of Wound: Surgery 12/18/22 - Excision sacral pressure sore, Stage IV, with partial ostectomy for osteomyelitis. Wound care - Dakin's alternated with Silver dressings. Operative Culture - Corynebacterium striatum in the soft tissue and Kocuria kristinae in the bone. Was treated perioperatively with Augmentin and Flagyl for a preop culture positive for Enterococcus faecalis and Anaerobes. Kocuria kristinae in the bone is positive for osteomyelitis. It is significant and should be treated since it didn't show up in the soft tissue culture. She was placed on Augmentin and has finished them. Pathology - Negative for acute osteomyelitis. Chronic reparative and reactive change. Prealbumin from 10/30/22 was 20.1. Encourage nutritional supplementation with protein to help the healing process. MRI Pelvis from 08/21/22 - 2.8 cm decubitus ulcer at the base of the coccyx without discrete evidence of osteomyelitis. At her Wound Center visit on 02/10/23, she had urinary symptoms. A Urinalysis was done which did not report any WBC, and no Bacteria reported. The Leukocyte Esterase was 500. She was started on Cipro and has finished them. A Urine Culture showed Klebsiella pneumoniae. It is sensitive to Cipro. Today her urinary symptoms have resolved. In the Summer, 2021 she had diagnosis of osteomyelitis. She was placed on IV antibiotics per Infectious Diseases for 6 weeks until January,. This is important because it establishes a timeline for chronic refractory osteomyelitis. She underwent HBO treatments for chronic refractory osteomyelitis and finished without problems. She tolerated the treatments. Today she denies fever. Her appetite is good. Progress of Wound: She states that her ulcer is getting difficult to pack again. The opening of the ulcer is smaller but she continues to have the depth and tunnel. The bone is palpable but it is covered with granulation tissue. She states she has been working hard to off load and has really increased her protein intake. Objective Data Objective Data Vital Signs: Vital Signs Temp Pulse Resp BP O2 Del Method 98.4 F 73 16 115/46 L Room Air 04/07/24 13:33 04/07/24 13:33 04/07/24 13:33 04/07/24 13:33 04/07/24 13:33 Oxygen Delivery Method Room Air Charges/Coding Procedures Integumentary 111xxx-113xx: [id number] Tran musc/fascia 20 sq cm/< Debridement Note Debridement Note Wound debrided: Sacral wound Laterality: Not Applicable Wound Grade/Stage: Stage IV Type of Debridement: Excisional debridement Anesthesia Used: 4% Lidocaine Solution Depth: to muscle Percentage of wound debrided: 100 Instrument Used: 7mm curette, #10 blade and Forceps Tissue Removed: Non viable tissue and slough into the muscle. Severity: Necrosis of Muscle Bleeding Controlled with: Pressure and Compression and gauze Patient tolerated procedure: Patient tolerated procedure well Debridement Free Text: Made opening larger to help with her packing it easier. Post-Debridement Measurements and Additional Note: Post-Debridement Measurements/Treatment - Nurse 1 - General Ulcer Assessment Start: 04/07/24 13:33 Freq: Status: Active Protocol: BENIGNO Activity Type Activity Date Activity User E-sign Co-sign Detail Recorded Client Recorded Date Recorded By Document 04/07/24 13:33 [facility] [id number] 04/07/24 13:41 [facility] 04/07/24 13:33 - Today's Visit Information Type of service Follow-up Visit (Physician/S[employer] BW DEVELOPER ) Arrival Mode Wheelchair Transfer Assistance Other Transfer Assist (Other) standby Patient Identification Verified (Name & Yes ) Patient Requires Transmission-Based No Precautions Vital Signs Temperature (97.8 F-99.1 F) 98.4 F Temperature Source Temporal Pulse Rate (60-100) 73 Pulse Location Monitor Respiratory Rate (12-18) 16 Respiratory rate source Observation Oxygen Delivery Method Room Air Blood Pressure (90/60-120/80) 115/46 L Blood Pressure Mean (mm Hg) 69 Source Monitor Position Sitting Blood Pressure Location Left Arm History Since Last Visit- (Skip if this is Patient's initial visit) Have you changed medications since your No last visit? Any new allergies or adverse reactions No Had a fall/change in ADL's that may No increase risk of falls Signs or symptoms of abuse and/or No neglect since last visit Have you been in the hospital since your No last visit? Has dressing in place as prescribed Yes Has compression in place as prescribed N/A Has offloadiing in place as prescribed N/A Experienced any changes in pain level or No management Left Footwear Regular Shoe Right Footwear Regular Shoe Pain Scale: 0-10 Numeric Is Patient Pain Free? Yes WC - Nurse 1 - General Ulcer Measurement Start: 04/07/24 13:33 Freq: Status: Active Protocol: Activity Type Activity Date Activity User E-sign Co-sign Detail Recorded Client Recorded Date Recorded By Document 04/07/24 13:33 [facility] [id number] 04/07/24 13:41 [facility] 04/07/24 13:33 Wound Center Nurse 1 #1- sacral -Combined with other wound No -Current Size (cm) - Length 1.3 -Current Size (cm) - Width 0.3 -Current Size (cm) - Depth 2.6 -Total Square Cm 0.39 -Date of Last Picture (Recall this 04/07/24 field) -Photo Taken Yes -Epithelialization None Present -Tunneling Yes -Tunneling Position (O'clock) 12 -Tunneling Distance (cm) 3.5 -Undermining/Tunneling No -Circular Undermining No -Exudate Amt Medium -Exudate Type Serosanguineous -Wound Margin Distinct, Outline Attached -Granulation Amt Large (67-100%) -Granulation Quality [place] -Texture (Neda-wound Skin Appearance) Assessed -Moisture (Neda-wound Skin Appearance) Assessed -Color (Neda-wound Skin Appearance) Assessed -Temperature (Neda-wound Skin No Abnormality Appearance) (Pt Warm) -Tenderness on Palpation (Neda-wound No Skin Appearance) -Ulcer Cleansing Soap and Water -Foul Odor after Cleansing No WC - Nurse 2 - General Ulcer CM Notes Start: 04/07/24 13:33 Freq: Status: Active Protocol: Activity Type Activity Date Activity User E-sign Co-sign Detail Recorded Client Recorded Date Recorded By Document 04/07/24 14:17 [id number] 04/07/24 14:29 04/07/24 14:17 Wound Center Nurse 2 -Time 14:17 -Correct Patient Yes -Correct Side, Site, Position Yes -Correct Procedure Yes -Procedure Performed Yes -Type of Procedure Debridement -Clinical Debridement Muscle / Fascia -Tissue Removed Muscle -Post Debridement (cm) - Length 2.4 -Post Debridement (cm) - Width 0.7 -Post Debridement (cm) - Depth 2.2 -Total Square (Post) (cm) 1.68 -Area of Debridement (cm) - Length 2.4 -Area of Debridement (cm) - Width 0.7 -Total Square (Area) (cm) 1.68 -Tunneling Yes -Tunneling Position (O'clock) 12 -Tunneling Distance (cm) 3.7 -Undermining/Tunneling No -Circular Undermining No -Wound/Ulcer Outcome Not Healed -Ulcer Cleansing Rinsed/ Irrigated with Saline -Foul Odor after Cleansing No -Bioengineered Tissue No -Bleeding Controlled with Pressure -Treatment Response Procedure Tolerated Well -Debridement - Muscle / Fascia, 1st Yes 20sq cm Pain Scale: 0-10 Numeric Is Patient Pain Free? Yes WC - Nurse 3 - General Ulcer D/C NN Start: 04/07/24 13:33 Freq: Status: Active Protocol: Activity Type Activity Date Activity User E-sign Co-sign Detail Recorded Client Recorded Date Recorded By Document 04/07/24 14:54 SD [id number] 04/07/24 14:57 SD 04/07/24 14:54 Wound Care Center Nurse 3 #1- sacral -Ulcer Cleansing Rinsed/ Irrigated with Saline -Foul Odor after Cleansing No -Negative Pressure Wound Therapy N/A -Other Dressing dakins, abd -Primary Dressing Covered/Secured with Dry Gauze, Secured with Tape Pain Scale: 0-10 Numeric Is Patient Pain Free? Yes Assessment/Plan Assessment/Plan (1) Sacral decubitus ulcer, stage IV: CODE(S): L89.154 - Pressure ulcer of sacral region, stage 4 (2) Osteomyelitis: CODE(S): M86.9 - Osteomyelitis, unspecified QUALIFIERS: Osteomyelitis type: other chronic Osteomyelitis location: other site Qualified Code(s): M86.68 - Other chronic osteomyelitis, other site (3) Immobility syndrome (paraplegic): CODE(S): M62.3 - Immobility syndrome (paraplegic) (4) Multiple sclerosis: CODE(S): G35 - Multiple sclerosis (5) Long-term current use of rituximab: CODE(S): Z79.620 - intermediate (current) use of immunosuppressive biologic (6) Former smoker: CODE(S): Z87.891 - Personal history of nicotine dependence PLAN: Plan Patient evaluated at the wound healing center today. Wound care - Dakin's 0.25% moistened gauze but alternate every other day with a Silver dressing covered with gauze/ABD. Wash wound with soap and water at the time of dressing changes. She has met with Dr. Villalta who is planning on surgery in the future. She is scheduled for her MRI Friday. She does voice concerns about going home after her surgery and not having any assistance. She will follow up in 3 weeks due to the holiday and her work schedule.
--- NOTE | 2024-04-08 09:14 | WC ---
PHOTO 04/07/24 [facility]CRUM
--- NOTE | 2024-04-09 11:28 | MRI_ITS ---
ACR Level 3 findings have been noted. An addendum which confirms receipt of the report will follow. STUDY: MR PELVIS WITH T WITHOUT CONTRAST REASON FOR EXAM: Female, 48 years old. OSTEOMYELITIS, SACRAL ULCER, PATIENT IN WHEELCHAIR TECHNIQUE: Standardized fat and water weighted pulse sequences were obtained in all 3 orthogonal planes, pre-and post contrast administration. IV CLARISCAN 13ML was administered for the contrast portion of the examination. COMPARISON: None. FINDINGS: Sacral decubitus ulcer and skin thickening/cellulitic changes at the midline of the gluteal folds with mild cortical erosion at level of the fourth coccyx with mild edema anterior to area of cortical erosion/infection. No abscess is present. Intermixed sclerosis of the eroded bone indicates an acute on chronic process. There is significant fatty atrophy of the gluteal muscles. Small bilateral hip joint effusions are present, right greater than left. No marrow edema or hip fractures are visualized. Mild right trochanteric bursitis is also present. Normal urinary bladder. Normal visualized small intestine. Normal visualized colon. There is no pelvic fluid. There is no pelvic mass lesion or lymphadenopathy. Normal visualized pelvic arteries. Unremarkable remaining osseous structures. Normal abdominal wall. MRI/Pelvis W/WO Contrast IMPRESSION: 1. Sacral decubitus ulcer and skin thickening/cellulitic changes at the midline of the gluteal folds with mild cortical erosion at level of the fourth coccyx with mild edema anterior to area of cortical erosion/infection. No abscess is present. Intermixed sclerosis of the eroded bone indicates an acute on chronic process. Electronically Signed: Milton Burgos MD at 12:33 EST ,
[2024-04-26 15:12] VITALS: BP 106/37; PULSE 74; RESP 18; TEMP 36.4
--- NOTE | 2024-04-26 16:09 | PN.PCM_ITS ---
History of Present Illness Date of Service: 04/26/24 Chief Complaint: Sacral pressure sore, Stage IV. History of Wound: Surgery 12/18/22 - Excision sacral pressure sore, Stage IV, with partial ostectomy for osteomyelitis. Wound care - Dakin's alternated with Silver dressings. Operative Culture - Corynebacterium striatum in the soft tissue and Kocuria kristinae in the bone. Was treated perioperatively with Augmentin and Flagyl for a preop culture positive for Enterococcus faecalis and Anaerobes. Kocuria kristinae in the bone is positive for osteomyelitis. It is significant and should be treated since it didn't show up in the soft tissue culture. She was placed on Augmentin and has finished them. Pathology - Negative for acute osteomyelitis. Chronic reparative and reactive change. Prealbumin from 10/30/22 was 20.1. Encourage nutritional supplementation with protein to help the healing process. MRI Pelvis from 08/21/22 - 2.8 cm decubitus ulcer at the base of the coccyx without discrete evidence of osteomyelitis. At her Wound Center visit on 02/10/23, she had urinary symptoms. A Urinalysis was done which did not report any WBC, and no Bacteria reported. The Leukocyte Esterase was 500. She was started on Cipro and has finished them. A Urine Culture showed Klebsiella pneumoniae. It is sensitive to Cipro. Today her urinary symptoms have resolved. In the Summer, 2021 she had diagnosis of osteomyelitis. She was placed on IV antibiotics per Infectious Diseases for 6 weeks until January,. This is important because it establishes a timeline for chronic refractory osteomyelitis. She underwent HBO treatments for chronic refractory osteomyelitis and finished without problems. She tolerated the treatments. MRI of her pelvis on 04/09/24 showed Sacral decubitus ulcer and skin thickening/cellulitic changes at the midline of the gluteal folds with mild willam ical erosion at level of the fourth coccyx with mild edema anterior to area of cortical erosion/infection. No abscess is present. Intermixed sclerosis of the eroded bone indicates an acute on chronic process. Today she denies fever. Her appetite is good. Progress of Wound: She continues to have the depth and tunnel. The bone is palpable but it is cov ered with granulation tissue. She states she has been working hard to off load and has really increased her protein intake. Reviewed her MRI results. 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 Objective Data Objective Data Vital Signs: Vital Signs Temp Pulse Resp BP O2 Del Method 97.6 F L 74 18 106/37 L Room Air 04/26/24 15:12 04/26/24 15:12 04/26/24 15:12 04/26/24 15:12 04/07/24 13:33 Oxygen Delivery Method Room Air Charges/Coding Procedures Integumentary 111xxx-113xx: [id number] Tran musc/fascia 20 sq cm/< Debridement Note Debridement Note Wound debrided: Sacral wound Laterality: Not Applicable Wound Grade/Stage: Stage IV Type of Debridement: Excisional debridement Anesthesia Used: 4% Lidocaine Solution Depth: to muscle Percentage of wound debrided: 100 Instrument Used: 5mm curette Tissue Removed: Non viable tissue and slough into the muscle. Severity: Necrosis of Muscle Bleeding Controlled with: Pressure and Compression and gauze Patient tolerated procedure: Patient tolerated procedure well Post-Debridement Measurements and Additional Note: Post-Debridement Measurements/Treatment - Nurse 1 - General Ulcer Assessment Start: 04/07/24 13:33 Freq: Status: Active Protocol: BENIGNO Activity Type Activity Date Activity User E-sign Co-sign Detail Recorded Client Recorded Date Recorded By Document 04/07/24 13:33 [facility] [id number] 04/07/24 13:41 [facility] Document 04/26/24 15:12 DL [id number] 04/26/24 15:16 DL 04/07/24 04/26/24 13:33 15:12 - Today's Visit Information Type of service Follow-up Visit Follow-up Visit (Physician/SUPERVISOR MACHINING (Physician/SUPERVISOR MACHINING ) ) Arrival Mode Wheelchair Wheelchair Transfer Assistance Other None Transfer Assist (Other) standby Patient Identification Verified (Name & Yes Yes ) Patient Requires Transmission-Based No No Precautions Vital Signs Temperature (97.8 F-99.1 F) 98.4 F 97.6 F L Temperature Source Temporal Temporal Pulse Rate (60-100) 73 74 Pulse Location Monitor Monitor Respiratory Rate (12-18) 16 18 Respiratory rate source Observation Observation Oxygen Delivery Method Room Air Blood Pressure (90/60-120/80) 115/46 L 106/37 L Blood Pressure Mean (mm Hg) 69 60 Source Monitor Monitor Position Sitting Blood Pressure Location Left Arm History Since Last Visit- (Skip if this is Patient's initial visit) Have you changed medications since your No No last visit? Any new allergies or adverse reactions No No Had a fall/change in ADL's that may No No increase risk of falls Signs or symptoms of abuse and/or No No neglect since last visit Have you been in the hospital since your No No last visit? Has dressing in place as prescribed Yes Yes Has compression in place as prescribed N/A N/A Has offloadiing in place as prescribed N/A Yes Experienced any changes in pain level or No No management Left Footwear Regular Shoe Right Footwear Regular Shoe Pain Scale: 0-10 Numeric Is Patient Pain Free? Yes Yes WC - Nurse 1 - General Ulcer Measurement Start: 04/07/24 13:33 Freq: Status: Active Protocol: Activity Type Activity Date Activity User E-sign Co-sign Detail Recorded Client Recorded Date Recorded By Document 04/07/24 13:33 [facility] [id number] 04/07/24 13:41 [facility] Document 04/26/24 15:12 DL [id number] 04/26/24 15:16 DL 04/07/24 04/26/24 13:33 15:12 Wound Center Nurse 1 #1- sacral -Combined with other wound No -Current Size (cm) - Length 1.3 0.5 -Current Size (cm) - Width 0.3 0.2 -Current Size (cm) - Depth 2.6 2 -Total Square Cm 0.39 0.10 -Date of Last Picture (Recall this 04/07/24 field) -Photo Taken Yes Yes -Epithelialization None Present -Tunneling Yes -Tunneling Position (O'clock) 12 12 -Tunneling Distance (cm) 3.5 3.7 -Undermining/Tunneling No -Circular Undermining No -Exudate Amt Medium Medium -Exudate Type Serosanguineous Serosanguineous -Wound Margin Distinct, Thickened & Outline Rolled Under Attached -Granulation Amt Large (67-100%) None Present (0 %) -Granulation Quality [place] -Necrosis Amt None Present (0 %) -Structure Exposed N/A -Texture (Neda-wound Skin Appearance) Assessed Scarring -Moisture (Neda-wound Skin Appearance) Assessed No Abnormality -Color (Neda-wound Skin Appearance) Assessed No Abnormality -Temperature (Neda-wound Skin No Abnormality No Abnormality Appearance) (Pt Warm) (Pt Warm) -Tenderness on Palpation (Neda-wound No No Skin Appearance) -Ulcer Cleansing Soap and Water Soap and Water -Foul Odor after Cleansing No No WC - Nurse 2 - General Ulcer CM Notes Start: 04/07/24 13:33 Freq: Status: Active Protocol: Activity Type Activity Date Activity User E-sign Co-sign Detail Recorded Client Recorded Date Recorded By Document 04/07/24 14:17 GM [id number] 04/07/24 14:29 GM Document 04/26/24 15:39 DL [id number] 04/26/24 15:42 DL 04/07/24 04/26/24 14:17 15:39 Wound Center Nurse 2 #1- sacral -Time 14:17 15:40 -Correct Patient Yes Yes -Correct Side, Site, Position Yes Yes -Correct Procedure Yes Yes -Procedure Performed Yes Yes -Type of Procedure Debridement Debridement -Clinical Debridement Muscle / Fascia Muscle / Fascia -Tissue Removed Muscle Muscle,Fascia -Post Debridement (cm) - Length 2.4 1.5 -Post Debridement (cm) - Width 0.7 0.3 -Post Debridement (cm) - Depth 2.2 3.0 -Total Square (Post) (cm) 1.68 0.45 -Area of Debridement (cm) - Length 2.4 1.5 -Area of Debridement (cm) - Width 0.7 0.3 -Total Square (Area) (cm) 1.68 0.45 -Tunneling Yes No -Tunneling Position (O'clock) 12 -Tunneling Distance (cm) 3.7 -Undermining/Tunneling No No -Circular Undermining No No -Wound/Ulcer Outcome Not Healed Not Healed -Ulcer Cleansing Rinsed/ Rinsed/ Irrigated with Irrigated with Saline Saline -Foul Odor after Cleansing No No -Bioengineered Tissue No No -Bleeding Controlled with Pressure Pressure -Treatment Response Procedure Procedure Tolerated Well Tolerated Well -Offloading No -Debridement - Muscle / Fascia, 1st Yes Yes 20sq cm Pain Scale: 0-10 Numeric Is Patient Pain Free? Yes Yes WC - Nurse 3 - General Ulcer D/C NN Start: 04/07/24 13:33 Freq: Status: Active Protocol: Activity Type Activity Date Activity User E-sign Co-sign Detail Recorded Client Recorded Date Recorded By Document 04/07/24 14:54 PA [id number] 04/07/24 14:57 MT Document 04/26/24 16:01 KW [id number] 04/26/24 16:01 KW 04/07/24 04/26/24 14:54 16:01 Wound Care Center Nurse 3 #1- sacral -Ulcer Cleansing Rinsed/ Irrigated with Saline -Foul Odor after Cleansing No -Negative Pressure Wound Therapy N/A -Primary Dressing Applied Aquacel AG 2x2 -Other Dressing dakins, abd -Primary Dressing Covered/Secured with Dry Gauze, Dry Gauze, Secured with Secured with Tape Tape -Aquacel AG 2x2 1 Pain Scale: 0-10 Numeric Is Patient Pain Free? Yes Yes Assessment/Plan Assessment/Plan (1) Sacral decubitus ulcer, stage IV: CODE(S): L89.154 - Pressure ulcer of sacral region, stage 4 (2) Osteomyelitis: CODE(S): M86.9 - Osteomyelitis, unspecified QUALIFIERS: Osteomyelitis location: other site Osteomyelitis type: other chronic Qualified Code(s): M86.68 - Other chronic osteomyelitis, other site (3) Immobility syndrome (paraplegic): CODE(S): M62.3 - Immobility syndrome (paraplegic) (4) Multiple sclerosis: CODE(S): G35 - Multiple sclerosis (5) Long-term current use of rituximab: CODE(S): Z79.620 - alf (current) use of immunosuppressive biologic (6) Former smoker: CODE(S): Z87.891 - Personal history of nicotine dependence PLAN: Plan Patient evaluated at the wound healing center today. Wound care - Dakin's 0.25% moistened gauze but alternate every other day with a Silver dressing covered with gauze/ABD. Wash wound with soap and water at the time of dressing changes. 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 She states that he is referring her to another perfect bind machine operator for treatment. I phoned Dr. Smith's office for clarification. He is referring her to vascular medicine, Dr. 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 I discussed this plan of care with Dr. Villalta. She will follow up in [address] Villalta.
== END 2024-04-26 23:59 | disposition home or self-care (01) ==
LOC: WC 15:00
PROVIDERS: PCP Family Medicine; Referring Provider Nurse Practitioner Family; Visit Provider Nurse Practitioner Family
DX: L89.154 Pressure ulcer of sacral region, stage 4 (principal); G35 Multiple sclerosis; M86.68 Other chronic osteomyelitis, other site; D68.2 Hereditary deficiency of other clotting factors; M62.3 Immobility syndrome (paraplegic); Z79.620 Long term (current) use of immunosuppressive biologic; Z87.891 Personal history of nicotine dependence
CPT/HCPCS: 11043; 72197; A9575

== ENCOUNTER 2024-05-17 15:05 | Outpatient (RCR) | payer MEDICARE, SELFPAY ==
[2024-04-27 00:05] VITALS: BP 106/37; PULSE 74; RESP 18; TEMP 36.4
[2024-05-17 15:24] VITALS: BP 106/46; PULSE 74; RESP 18; TEMP 37
--- NOTE | 2024-05-17 18:30 | PN.PCM_ITS ---
History of Present Illness Date of Service: 05/17/24 Chief Complaint: Sacral pressure sore, Stage IV. History of Wound: Surgery 12/18/22 - Excision sacral pressure sore, Stage IV, with partial ostectomy for osteomyelitis. Wound care - Dakin's alternated with Silver dressings. Operative Culture - Corynebacterium striatum in the soft tissue and Kocuria kristinae in the bone. Was treated perioperatively with Augmentin and Flagyl for a preop culture positive for Enterococcus faecalis and Anaerobes. Kocuria kristinae in the bone is positive for osteomyelitis. It is significant and should be treated since it didn't show up in the soft tissue culture. She was placed on Augmentin and has finished them. Pathology - Negative for acute osteomyelitis. Chronic reparative and reactive change. Prealbumin from 10/30/22 was 20.1. Encourage nutritional supplementation with protein to help the healing process. MRI Pelvis from 08/21/22 - 2.8 cm decubitus ulcer at the base of the coccyx without discrete evidence of osteomyelitis. At her Wound Center visit on 02/10/23, she had urinary symptoms. A Urinalysis was done which did not report any WBC, and no Bacteria reported. The Leukocyte Esterase was 500. She was started on Cipro and has finished them. A Urine Culture showed Klebsiella pneumoniae. It is sensitive to Cipro. Today her urinary symptoms have resolved. In the Summer, 2021 she had diagnosis of osteomyelitis. She was placed on IV antibiotics per Infectious Diseases for 6 weeks until January,. This is important because it establishes a timeline for chronic refractory osteomyelitis. She underwent HBO treatments for chronic refractory osteomyelitis and finished without problems. She tolerated the treatments. MRI of her pelvis on 04/09/24 showed Sacral decubitus ulcer and skin thickening/cellulitic changes at the midline of the gluteal folds with mild cortical erosion at level of the fourth coccyx with mild edema anterior to area of cortical erosion/infection. No abscess is present. Intermixed sclerosis of the eroded bone indicates an acute on chronic process. Today she denies fever. Her appetite is good. Subjective Subjective Chief Complaint: Sacral pressure sore, Stage IV. History of Wound: HPI from Dr. Villalta, 23 February 2024: Rocío Coronado is a 48-year-old female with a complicated past medical history who presents for stage IV sacral wound. Patient reports that she became sick with COVID in April 2020, and on Ocampo's Day (2020, she suddenly lost the ability to walk/move lower extremities as well as the ability to feel below her lower thoracic spine dermatomes. She had extensive workup for MS and went on several rounds of Solu-Medrol IV as an inpatient at the [facility]. 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 She has been paraplegic ever since, and has dealt with chronic stage IV sacral ulcer for over a year. The patient is quite active and has adolescent children with whom she spends a significant amount of time. 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 Of note, Dr. Gregory who was formerly part of our practice performed the following surgery with the following postoperative course (per chart review): Surgery 12/18/22 - Excision sacral pressure sore, Stage IV, with partial ostectomy for osteomyelitis. Wound care - Dakin's alternated with Silver dressings. Operative Culture - Corynebacterium striatum in the soft tissue and Kocuria kristinae in the bone. Was treated perioperatively with Augmentin and Flagyl for a preop culture positive for Enterococcus faecalis and Anaerobes. Kocuria kristinae in the bone is positive for osteomyelitis. It is significant and should be treated since it didn't show up in the soft tissue culture. She was placed on Augmentin and has finished them. Pathology - Negative for acute osteomyelitis. Chronic reparative and reactive change. Prealbumin from 10/30/22 was 20.1. Encourage nutritional supplementation with protein to help the healing process. MRI Pelvis from 08/21/22 - 2.8 cm decubitus ulcer at the base of the coccyx without discrete evidence of osteomyelitis. At her Wound Center visit on 02/10/23, she had urinary symptoms. A Urinalysis was done which did not report any WBC, and no Bacteria reported. The Leukocyte Esterase was 500. She was started on Cipro and has finished them. A Urine Culture showed Klebsiella pneumoniae. It is sensitive to Cipro. Today her urinary symptoms have resolved. In the 2021 she had diagnosis of osteomyelitis. She was placed on IV antibiotics per Infectious Diseases for 6 weeks until January,. This is important because it establishes a timeline for chronic refractory osteomyelitis. She underwent HBO treatments for chronic refractory osteomyelitis and finished without problems. She tolerated the treatments. Today she denies fever. Her appetite is good. 23 February 2024: Patient reports that she has been compliant with her daily wound care regimen and does not have any fevers or chills or signs of acute infection at this time. She has an eggshell bed but does not have an air bed/hospital bed and does not want 1 at this time. She tries to pressure offload it, and has a wheelchair that she can stand and like a chariot. Of note she has reasonable control of her bowels and does manual disimpaction as needed. She rarely has any stool around the wound. She also self caths and is seeing a urologist for her oxybutynin and potential Botox for her bladder spasms. She has been taking great care with regards to nutrition. She cooks and cleans for her family. 15 Mar 2024: Doing well with dressing changes. She has an appointment with Dr. Smith from hematology tomorrow to address Eliquis (patient stopped Eliquis on her own) and a plan going forward. Patient reports that she does not want to have surgery until after the first of the year as her is heavily involved in hunting season currently. She recently had nutrition labs and her albumin was 3.8 and her prealbumin was 17. She is continuing a high-protein diet. She is also continuing pressure offloading and now has a pressure offloading bed at home. Current encounter, 17 May 2024: Doing well with wound care and nutrition. Wound is beginning smaller but it is still down to bone. MRI from March 2024 (last month) demonstrated some reactive changes in the bone versus some acute on chronic possible osteomyelitis at the base of the wound, but localized to the area of the wound. Patient has a pressure offloading bed at home and is ready for reconstruction as she is made arrangements with her family for pressure offloading protocols/positioning restrictions. She is also recently went to the phone manager and had blood work done. She is following up with them next week. Objective Data Objective Data Vital Signs: Vital Signs Temp Pulse Resp BP 98.6 F 74 18 106/46 L 05/17/24 15:24 05/17/24 15:24 05/17/24 15:24 05/17/24 15:24 Charges/Coding Procedures Integumentary [id number]: [id number] Tran bone 20 sq cm/< Physical Exam Narrative Sacral wound Wound is 1 x 1 cm sacral wound, 4 cm deep. Exposed bone at the base and the wound tunnels 0.5 cm superiorly There is fibrinous exudate and hypertrophic granulation tissue and biofilm within the wound Const alert and oriented x3 Eyes EOMs intact bilaterally Neck full ROM Resp normal respiratory effort Cardio regular rate GI non-distended GI Narrative: No ostomy Debridement Note Debridement Note Wound debrided: Sacral wound Laterality: Not Applicable Type of Debridement: Excisional debridement Anesthesia Used: 4% Lidocaine Solution Depth: to bone Percentage of wound debrided: 100 Instrument Used: 7mm curette Severity: Necrosis of Bone Amount of bleeding with debridement: Mild Bleeding Controlled with: Compression and gauze Patient tolerated procedure: Patient tolerated procedure well Post-Debridement Measurements and Additional Note: Post-Debridement Measurements/Treatment WC - Nurse 1 - General Ulcer Assessment Start: 05/17/24 15:24 Freq: Status: Active Protocol: BENIGNO Activity Type Activity Date Activity User E-sign Co-sign Detail Recorded Client Recorded Date Recorded By Document 05/17/24 15:24 DL [id number] 05/17/24 15:31 DL 05/17/24 15:24 WC - Today's Visit Information Type of service Follow-up Visit (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 Any new allergies or adverse reactions No Had a fall/change in ADL's that may No increase risk of falls Signs or symptoms of abuse and/or No neglect since last visit Have you been in the hospital since your No last visit? Has dressing in place as prescribed Yes Has compression in place as prescribed N/A Has offloadiing in place as prescribed Yes Experienced any changes in pain level or No management Pain Scale: 0-10 Numeric Is Patient Pain Free? Yes WC - Nurse 1 - General Ulcer Measurement Start: 05/17/24 15:24 Freq: Status: Active Protocol: Activity Type Activity Date Activity User E-sign Co-sign Detail Recorded Client Recorded Date Recorded By Document 05/17/24 15:24 GAGANDEEP [id number] 05/17/24 15:31 GAGANDEEP 05/17/24 15:24 Wound Center Nurse 1 #1- sacral -Current Size (cm) - Length 1 -Current Size (cm) - Width 0.3 -Current Size (cm) - Depth 2.8 -Total Square Cm 0.3 -Exudate Amt Medium -Exudate Type Serosanguineous -Wound Margin Indistinct, Non -Visible -Granulation Amt Medium (34-66%) -Granulation Quality Red -Necrosis Amt Large (67-100%) -Necrotic Tissue Type Adherent Slough -Structure Exposed N/A -Texture (Neda-wound Skin Appearance) Scarring -Moisture (Neda-wound Skin Appearance) No Abnormality -Color (Neda-wound Skin Appearance) No Abnormality -Temperature (Neda-wound Skin No Abnormality Appearance) (Pt Warm) -Tenderness on Palpation (Neda-wound No Skin Appearance) -Ulcer Cleansing Rinsed/ Irrigated with Saline -Foul Odor after Cleansing No WC - Nurse 2 - General Ulcer CM Notes Start: 05/17/24 15:24 Freq: Status: Active Protocol: Activity Type Activity Date Activity User E-sign Co-sign Detail Recorded Client Recorded Date Recorded By Document 05/17/24 16:19 MAHESH [id number] 05/17/24 16:20 MAHESH 05/17/24 16:19 Wound Center Nurse 2 -Time 16:19 -Correct Patient Yes -Correct Side, Site, Position Yes -Correct Procedure Yes -Procedure Performed Yes -Type of Procedure Debridement -Clinical Debridement Bone -Tissue Removed Non-viable tissue -Post Debridement (cm) - Length 1 -Post Debridement (cm) - Width 1 -Post Debridement (cm) - Depth 4 -Total Square (Post) (cm) 1 -Area of Debridement (cm) - Length 1 -Area of Debridement (cm) - Width 1 -Total Square (Area) (cm) 1 -Tunneling No -Undermining/Tunneling No -Circular Undermining No -Wound/Ulcer Outcome Not Healed -Ulcer Cleansing Rinsed/ Irrigated with Saline -Foul Odor after Cleansing No -Bioengineered Tissue No -Bleeding Controlled with Pressure -Treatment Response Procedure Tolerated Well -Offloading No -Debridement - Bone, 1st 20sq cm Yes Pain Scale: 0-10 Numeric Is Patient Pain Free? Yes - Nurse 3 - General Ulcer D/C NN Start: 05/17/24 15:24 Freq: Status: Active Protocol: Activity Type Activity Date Activity User E-sign Co-sign Detail Recorded Client Recorded Date Recorded By Document 05/17/24 16:37 [facility] [id number] 05/17/24 16:38 [facility] 05/17/24 16:37 Wound Care Center Nurse 3 #1- sacral -Ulcer Cleansing Rinsed/ Irrigated with Saline -Foul Odor after Cleansing No -Primary Dressing Applied Aquacel AG 4x4 -Other Dressing abd -Primary Dressing Covered/Secured with Secured with Tape -Other Covering drsg per gm rn -Aquacel AG 4x4 1 Treatment Response Procedure Tolerated Well Pain Scale: 0-10 Numeric Is Patient Pain Free? Yes - Visit Discharge Discharge Condition Stable Ambulatory Status Wheelchair Transportation Private Auto Assessment/Plan Assessment/Plan (1) Sacral decubitus ulcer, stage IV: CODE(S): L89.154 - Pressure ulcer of sacral region, stage 4 PLAN: Continue Dakins WTD dressings BID (2) Osteomyelitis: CODE(S): M86.9 - Osteomyelitis, unspecified QUALIFIERS: Osteomyelitis type: other chronic Osteomyelitis location: other site Qualified Code(s): M86.68 - Other chronic osteomyelitis, other site PLAN: Plan for biopsy at the time of closure and then treat the chronic osteomyelitis at that time (and will get ID consult) (3) Immobility syndrome (paraplegic): CODE(S): M62.3 - Immobility syndrome (paraplegic) (4) Multiple sclerosis: CODE(S): G35 - Multiple sclerosis (5) Long-term current use of rituximab: CODE(S): 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 We discussed risks, benefits, and alternatives to reconstruction today, as well as pressure offloading. We talked about continued nutritional support. We talked about risks of making a larger wound/persistent wound despite our best efforts. She would like to proceed.
== END 2024-05-25 23:59 | disposition home or self-care (01) ==
LOC: WC 15:05
PROVIDERS: PCP Family Medicine; Referring Provider Nurse Practitioner Family; Visit Provider Nurse Practitioner Family
DX: L89.154 Pressure ulcer of sacral region, stage 4 (principal); G35 Multiple sclerosis; M86.68 Other chronic osteomyelitis, other site; M62.3 Immobility syndrome (paraplegic); Z87.891 Personal history of nicotine dependence; Z79.620 Long term (current) use of immunosuppressive biologic; Z86.16 Personal history of COVID-19
CPT/HCPCS: 11044

== ENCOUNTER 2024-06-14 13:00 | Outpatient (RCR) | payer MEDICARE, SELFPAY ==
[2024-05-26 00:50] VITALS: BP 106/37; PULSE 74; RESP 18; TEMP 36.4
[2024-06-07 15:59] VITALS: BP 115/71; PULSE 87; RESP 18; TEMP 36.2
--- NOTE | 2024-06-08 07:09 | PCM.WC.PN ---
History of Present Illness Date of Service: 06/08/24 Chief Complaint: Sacral pressure sore, Stage IV. History of Wound: Surgery 12/18/22 - Excision sacral pressure sore, Stage IV, with partial ostectomy for osteomyelitis. Wound care - Dakin's alternated with Silver dressings. Operative Culture - Corynebacterium striatum in the soft tissue and Kocuria kristinae in the bone. Was treated perioperatively with Augmentin and Flagyl for a preop culture positive for Enterococcus faecalis and Anaerobes. Kocuria kristinae in the bone is positive for osteomyelitis. It is significant and should be treated since it didn't show up in the soft tissue culture. She was placed on Augmentin and has finished them. Pathology - Negative for acute osteomyelitis. Chronic reparative and reactive change. Prealbumin from 10/30/22 was 20.1. Encourage nutritional supplementation with protein to help the healing process. MRI Pelvis from 08/21/22 - 2.8 cm decubitus ulcer at the base of the coccyx without discrete evidence of osteomyelitis. At her Wound Center visit on 02/10/23, she had urinary symptoms. A Urinalysis was done which did not report any WBC, and no Bacteria reported. The Leukocyte Esterase was 500. She was started on Cipro and has finished them. A Urine Culture showed Klebsiella pneumoniae. It is sensitive to Cipro. Today her urinary symptoms have resolved. In the Summer, 2021 she had diagnosis of osteomyelitis. She was placed on IV antibiotics per Infectious Diseases for 6 weeks until January,. This is important because it establishes a timeline for chronic refractory osteomyelitis. She underwent HBO treatments for chronic refractory osteomyelitis and finished without problems. She tolerated the treatments. MRI of her pelvis on 04/09/24 showed Sacral decubitus ulcer and skin thickening/cellulitic changes at the midline of the gluteal folds with mild cortical erosion at level of the fourth coccyx with mild edema anterior to area of cortical erosion/infection. No abscess is present. Intermixed sclerosis of the eroded bone indicates an acute on chronic process. Today she denies fever. Her appetite is good. Of note patient has no diverting ostomy. She is able to manage her bowel movements as needed with digital decompaction. She also does self-catheterization. Subjective Subjective Chief Complaint: Sacral pressure sore, Stage IV. History of Wound: HPI from Dr. Villalta, 23 February 2024: Rocío Coronado is a 48-year-old female with a complicated past medical history who presents for stage IV sacral wound. Patient reports that she became sick with COVID in April 2020, and on 's Day (2020, she suddenly lost the ability to walk/move lower extremities as well as the ability to feel below her lower thoracic spine dermatomes. She had extensive workup for MS and went on several rounds of Solu-Medrol IV as an inpatient at the [facility]. 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 She has been paraplegic ever since, and has dealt with chronic stage IV sacral ulcer for over a year. The patient is quite active and has adolescent children with whom she spends a significant amount of time. 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 Of note, Dr. Gregory who was formerly part of our practice performed the following surgery with the following postoperative course (per chart review): Surgery 12/18/22 - Excision sacral pressure sore, Stage IV, with partial ostectomy for osteomyelitis. Wound care - Dakin's alternated with Silver dressings. Operative Culture - Corynebacterium striatum in the soft tissue and Kocuria kristinae in the bone. Was treated perioperatively with Augmentin and Flagyl for a preop culture positive for Enterococcus faecalis and Anaerobes. Kocuria kristinae in the bone is positive for osteomyelitis. It is significant and should be treated since it didn't show up in the soft tissue culture. She was placed on Augmentin and has finished them. Pathology - Negative for acute osteomyelitis. Chronic reparative and reactive change. Prealbumin from 10/30/22 was 20.1. Encourage nutritional supplementation with protein to help the healing process. MRI Pelvis from 08/21/22 - 2.8 cm decubitus ulcer at the base of the coccyx without discrete evidence of osteomyelitis. At her Wound Center visit on 02/10/23, she had urinary symptoms. A Urinalysis was done which did not report any WBC, and no Bacteria reported. The Leukocyte Esterase was 500. She was started on Cipro and has finished them. A Urine Culture showed Klebsiella pneumoniae. It is sensitive to Cipro. Today her urinary symptoms have resolved. In the Summer, 2021 she had diagnosis of osteomyelitis. She was placed on IV antibiotics per Infectious Diseases for 6 weeks until January,. This is important because it establishes a timeline for chronic refractory osteomyelitis. She underwent HBO treatments for chronic refractory osteomyelitis and finished without problems. She tolerated the treatments. Today she denies fever. Her appetite is good. 23 February 2024: Patient reports that she has been compliant with her daily wound care regimen and does not have any fevers or chills or signs of acute infection at this time. She has an eggshell bed but does not have an air bed/hospital bed and does not want 1 at this time. She tries to pressure offload it, and has a wheelchair that she can stand and like a chariot. Of note she has reasonable control of her bowels and does manual disimpaction as needed. She rarely has any stool around the wound. She also self caths and is seeing a urologist for her oxybutynin and potential Botox for her bladder spasms. She has been taking great care with regards to nutrition. She cooks and cleans for her family. 15 Mar 2024: Doing well with dressing changes. She has an appointment with Dr. Smith from hematology tomorrow to address Eliquis (patient stopped Eliquis on her own) and a plan going forward. Patient reports that she does not want to have surgery until after the first of the year as her is heavily involved in hunting season currently. She recently had nutrition labs and her albumin was 3.8 and her prealbumin was 17. She is continuing a high-protein diet. She is also continuing pressure offloading and now has a pressure offloading bed at home. 17 May 2024: Doing well with wound care and nutrition. Wound is beginning smaller but it is still down to bone. MRI from March 2024 (last month) demonstrated some reactive changes in the bone versus some acute on chronic possible osteomyelitis at the base of the wound, but localized to the area of the wound. Patient has a pressure offloading bed at home and is ready for reconstruction as she is made arrangements with her family for pressure offloading protocols/positioning restrictions. She is also recently went to the talent acquisition assistant and had blood work done. She is following up with them next week. Current encounter,08 Jun 2024: Patient doing well overall. Has been working hard to continue high-protein diet and pressure offload. Hematology note reviewed with the patient. Patient is scheduled for a lower extremity ultrasound to assess venous architecture. If no clot burden/chronic changes concerning for high perioperative VTE risk, then they are recommending simple postoperative anticoagulation while inpatient with prophylactic dose (Xarelto 10 mg PO daily). Patient happy with the plan. She's scheduled for debridement/cultures/irrigating VAC followed by second stage reconstruction for later this month. Objective Data Objective Data Vital Signs: Vital Signs Temp Pulse Resp BP O2 Del Method 97.1 F L 87 18 115/71 Room Air 06/07/24 15:59 06/07/24 15:59 06/07/24 15:59 06/07/24 15:59 06/07/24 15:59 Oxygen Delivery Method Room Air Charges/Coding Procedures Integumentary [id number]: 33710 Tran bone 20 sq cm/< Physical Exam Narrative Sacral wound Wound is 0.9 x 0.4 cm sacral wound, 4 cm deep with larger 2 x 2 cm cavity beneath opening of the skin. Exposed bone at the base and the wound tunnels 1 cm superiorly There is fibrinous exudate and hypertrophic granulation tissue and biofilm within the wound Patient is insensate around the nerve edges Const alert and oriented x3 Eyes EOMs intact bilaterally Neck full ROM Resp normal respiratory effort Cardio regular rate GI non-distended GI Narrative: No ostomy Debridement Note Debridement Note Wound debrided: Sacral wound (central) Laterality: Not Applicable Type of Debridement: Excisional debridement Anesthesia Used: 4% Lidocaine Solution Depth: to bone Percentage of wound debrided: 100 Instrument Used: 7mm curette Severity: Necrosis of Bone Amount of bleeding with debridement: Moderate Bleeding Controlled with: Pressure Patient tolerated procedure: Patient tolerated procedure well Post-Debridement Measurements and Additional Note: Post-Debridement Measurements/Treatment - Nurse 1 - General Ulcer Assessment Start: 06/07/24 15:58 Freq: Status: Active Protocol: BENIGNO Activity Type Activity Date Activity User E-sign Co-sign Detail Recorded Client Recorded Date Recorded By Document 06/07/24 15:59 KW [id number] 06/07/24 16:04 KW 06/07/24 15:59 - Today's Visit Information Type of service Initial Visit Arrival Mode Wheelchair Patient Identification Verified (Name & Yes ) Vital Signs Temperature (97.8 F-99.1 F) 97.1 F L Temperature Source Temporal Pulse Rate (60-100) 87 Pulse Location Monitor Respiratory Rate (12-18) 18 Respiratory rate source Observation Oxygen Delivery Method Room Air Blood Pressure (90/60-120/80) 115/71 Blood Pressure Mean (mm Hg) 85 Source Monitor Position Sitting Blood Pressure Location Left Arm History Since Last Visit- (Skip if this is Patient's initial visit) Have you changed medications since your No last visit? Any new allergies or adverse reactions No Had a fall/change in ADL's that may No increase risk of falls Signs or symptoms of abuse and/or No neglect since last visit Have you been in the hospital since your No last visit? Has dressing in place as prescribed Yes Has compression in place as prescribed N/A Has offloadiing in place as prescribed N/A Experienced any changes in pain level or No management Left Footwear Regular Shoe Right Footwear Regular Shoe Pain Scale: 0-10 Numeric Is Patient Pain Free? Yes WC - Nurse 1 - General Ulcer Measurement Start: 06/07/24 15:58 Freq: Status: Active Protocol: Activity Type Activity Date Activity User E-sign Co-sign Detail Recorded Client Recorded Date Recorded By Document 06/07/24 15:59 KALI [id number] 06/07/24 16:04 KW 06/07/24 15:59 Wound Center Nurse 1 #1- sacral -Current Size (cm) - Length 0.8 -Current Size (cm) - Width 0.3 -Current Size (cm) - Depth 3 -Total Square Cm 0.24 -Exudate Amt Small -Exudate Type Serosanguineous -Wound Margin Distinct, Outline Attached -Granulation Amt Large (67-100%) -Granulation Quality Clancy -Texture (Neda-wound Skin Appearance) Assessed -Moisture (Neda-wound Skin Appearance) Assessed -Color (Neda-wound Skin Appearance) Assessed -Temperature (Neda-wound Skin No Abnormality Appearance) (Pt Warm) -Tenderness on Palpation (Neda-wound No Skin Appearance) -Ulcer Cleansing Rinsed/ Irrigated with Saline -Foul Odor after Cleansing No WC - Nurse 2 - General Ulcer CM Notes Start: 06/07/24 15:58 Freq: Status: Active Protocol: Activity Type Activity Date Activity User E-sign Co-sign Detail Recorded Client Recorded Date Recorded By Document 06/07/24 16:35 [id number] 06/07/24 16:44 06/07/24 16:35 Wound Center Nurse 2 -Time 16:41 -Correct Patient Yes -Correct Side, Site, Position Yes -Correct Procedure Yes -Procedure Performed Yes -Type of Procedure Debridement -Clinical Debridement Bone -Tissue Removed Non-viable tissue -Post Debridement (cm) - Length 0.9 -Post Debridement (cm) - Width 0.4 -Post Debridement (cm) - Depth 3.0 -Total Square (Post) (cm) 0.36 -Area of Debridement (cm) - Length 0.9 -Area of Debridement (cm) - Width 0.4 -Total Square (Area) (cm) 0.36 -Tunneling No -Undermining/Tunneling No -Circular Undermining No -Wound/Ulcer Outcome Not Healed -Ulcer Cleansing Rinsed/ Irrigated with Saline -Foul Odor after Cleansing No -Bioengineered Tissue No -Bleeding Controlled with Pressure -Treatment Response Procedure Tolerated Well -Offloading No -Pressure Reduction Wheelchair cushion -Debridement - Bone, 1st 20sq cm Yes Pain Scale: 0-10 Numeric Is Patient Pain Free? Yes - Nurse 3 - General Ulcer D/C NN Start: 06/07/24 15:58 Freq: Status: Active Protocol: Activity Type Activity Date Activity User E-sign Co-sign Detail Recorded Client Recorded Date Recorded By Document 06/07/24 17:00 [facility] [id number] 06/07/24 17:02 [facility] 06/07/24 17:00 Wound Care Center Nurse 3 #1- sacral -Ulcer Cleansing Rinsed/ Irrigated with Saline -Foul Odor after Cleansing No -Other Dressing dakins moist gauze -Primary Dressing Covered/Secured with Secured with Tape -Other Covering abd Treatment Response Procedure Tolerated Well Pain Scale: 0-10 Numeric Is Patient Pain Free? Yes WC - Visit Discharge Discharge Condition Stable Ambulatory Status Wheelchair Transportation Private Auto Accompanied by Assessment/Plan Assessment/Plan (1) Sacral decubitus ulcer, stage IV: CODE(S): L89.154 - Pressure ulcer of sacral region, stage 4 PLAN: Continue Dakins WTD dressings BID (2) Osteomyelitis: CODE(S): M86.9 - Osteomyelitis, unspecified QUALIFIERS: Osteomyelitis type: other chronic Osteomyelitis location: other site Qualified Code(s): M86.68 - Other chronic osteomyelitis, other site PLAN: Plan for biopsy at the time of closure and then treat the chronic osteomyelitis at that time (and will get ID consult) (3) Immobility syndrome (paraplegic): CODE(S): M62.3 - Immobility syndrome (paraplegic) (4) Multiple sclerosis: CODE(S): G35 - Multiple sclerosis (5) Long-term current use of rituximab: CODE(S): Z79.620 - termite renewal inspector (current) use of immunosuppressive biologic (6) Former smoker: CODE(S): Z87.891 - Personal history of nicotine dependence PLAN: Plan Appreciate hematology recommendations. We will f/u with [facility] and coordinate neda-operative plan from there. We discussed risks, benefits, and alternatives to reconstruction today, as well as postoperative rehabilitation and pressure offloading. We talked about continued nutritional support. We talked about flap failure and necrosis, as well as the risks of making a larger wound/persistent wound despite our best efforts. We talked about damage to surrounding structures including nerves, the rectum. We talked about bleeding and infection risk. We talked about DVT/PE risk and the risk of anesthesia including . She would like to proceed.
--- NOTE | 2024-06-14 12:59 | VDLE_ITS ---
Reason For Study: HX DVT RIGHT LEFT GSV is normal. GSV is normal. CFV is compressible, spontaneous, phasic, CFV is compressible, spontaneous, phasic, competent and demonstrates normal competent, and demonstrates normal augmentation. augmentation. FV is compressible, spontaneous, phasic, FV is compressible, spontaneous, phasic, competent and demonstrates normal competent and demonstrates normal augmentation. augmentation. POP V is compressible, spontaneous, phasic, POP V is compressible, spontaneous, phasic, competent and demonstrates normal competent and demonstrates normal augmentation. augmentation. T/P Trunk is compressible. T/P Trunk is compressible. PTV is compressible. PTV is compressible. RT PerV is compressible. LT PerV is compressible. Procedure This is a venous duplex using B-mode, color flow and spectral Doppler. Exam performed in department. The exam was diagnostic. VL/Venous Duplex US - Jarret Extrem Interpretation Summary Deep veins of the lower extremities are bilaterally patent and compressible seg mentally. There is no evidence of deep vein thrombosis on either side. Valvular competence appears in tact within the proximal deep venous systems bilaterally. The great saphenous veins appear bila terally patent and compressible segmentally. Ordering Physician: Lewis Villalta Referring Physician: Joan Fowler Performed By: Ralph Bowser RVT
== END 2024-06-23 13:12 | disposition home or self-care (01) ==
LOC: WC 13:00
PROVIDERS: PCP Family Medicine; Referring Provider Nurse Practitioner Family; Visit Provider Surgery Plastic and Reconstructive Surgery
DX: L89.154 Pressure ulcer of sacral region, stage 4 (principal); G35 Multiple sclerosis; M86.68 Other chronic osteomyelitis, other site; M62.3 Immobility syndrome (paraplegic); R60.0 Localized edema; Z79.01 Long term (current) use of anticoagulants; Z79.620 Long term (current) use of immunosuppressive biologic; Z86.718 Personal history of other venous thrombosis and embolism; Z87.891 Personal history of nicotine dependence
CPT/HCPCS: 11044; 93970

== ENCOUNTER 2024-06-23 10:31 | Inpatient (IN) | payer MEDICARE, SELFPAY ==
[2024-06-23] VITALS (11 sets, daily range): BP systolic 91–118; BP diastolic 51–88; PULSE 64–101; RESP 16–20; TEMP 36.1–36.9; O2SAT 97–100; BMI 23.0
[2024-06-23] MEDS: 0.9% Normal Saline (1000mL) 1,000 ML 15 ML IV (07:43)
--- NOTE | 2024-06-23 07:51 | PCM.PRE.AN2 ---
ASA Classification* ASA Classification ASA Classification: 3 Assessment & Plan Anesthesia* Anesthesia Assessment Anesthesia Assessment: Discussed sedation and/or anesthesia options, risks, benefits, and alternatives with patient/parents/legal guardian/POA. Questions invited. The patient/parents/legal guardian/POA seems to understand and agrees to proceed with anesthesia plan. Reviewed the physical assessment, medical history, allergy history and patient home medications list prior to surgery/procedure/anesthetic and documented any changes. Performed airway and anesthesia risk assessments. Anesthesia Type Anesthesia Type: MAC (Patient prefers MAC in view of PONV and lack of sensation below the umbilicus) History Source History Obtained from:: Patient and Chart Anesthesia Focused Assessment* Temperature: 98.2 F Pulse Rate: 78 Blood Pressure: 114/75 Respiratory Rate: 18 Pulse Ox: 100 Oxygen Delivery Method: Room Air Airway Assessment Mouth opens: >3 cm Mallampati Score: I Teeth Condition: Intact Neck Range of motion (ROM): Full ROM Focused Labs Anesthesia Preop lab: CBC WBC 5.2 K/mm3 (4.4-11.0) 10/30/22 09:00 RBC 4.96 M/mm3 (4.2-5.4) 10/30/22 09:00 Hgb 14.2 g/dL (12.0-15.0) 10/30/22 09:00 Hct 44.9 % (37-47) 10/30/22 09:00 Plt Count 241 K/mm3 (150-450) 10/30/22 09:00 CHEMISTRY Potassium 3.5 mmol/L (3.5-5.1) 10/30/22 09:00 Sodium 143 mmol/L (136-145) 10/30/22 09:00 Magnesium 1.9 mg/dL (1.6-2.6) 10/30/22 09:00 BUN 14 mg/dL (7-18) 10/30/22 09:00 Creatinine 0.54 mg/dL (0.55-1.02) L 10/30/22 09:00 Glucose 68 mg/dL (74-106) L 10/30/22 09:00 TSH 0.99 uIU/mL (0.358-3.74) 06/26/22 09:54 COAG Pre-Assessment Diagnosis/Proposed Procedure Planned Operative Procedure(s): EXCISION SACRAL WOUNDWITH FLAP RECONSTRUCTION,IRRIGATIONG WOUND VAC Anesthesia History 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 When Was Last Pacemaker Check QUESTION #4 FULL TEXT: You/Your Family Experience fever (hyperthermia) with Anesthesia Last Oral Intake Last Oral intake: Last Oral Intake NPO since 00:00 06/23/24 07:28 Meds taken in AM with sips of Yes 06/23/24 07:28 water? Meds patient instructed to take am of surgery PONV PONV - streetcar repairer helper: PONV - streetcar repairer helper Female Yes 06/15/24 11:20 HX of Motion Sickness No 06/15/24 11:20 HX of N/V After Surgery No 06/15/24 11:20 Non-Smoker Yes 06/15/24 11:20 Duration of Surgery greater Yes 06/15/24 11:20 than 60 minutes Number of Risk Factors 3 06/15/24 11:20 PONV Score Moderate Risk 06/15/24 11:20 Height & Weight Height & Weight: Anesthesia: Height & Weight Height 5 ft 7 in 06/23/24 07:28 Weight: 66.678 kg 06/23/24 07:28 Body Mass Index (BMI) 23.0 06/23/24 07:28 Respiratory Assessment Respiratory Assessment - streetcar repairer helper: Respiratory Tract Infection Hx - streetcar repairer helper Hx Respiratory Tract Infection No 06/15/24 11:20 STOP Sleep Apnea STOP Sleep Apnea - streetcar repairer helper: STOP Sleep Apnea - streetcar repairer helper Hx Hypertension No 06/15/24 11:20 Hx Sleep Apnea No 06/15/24 11:20 CPAP BIPAP Do you snore loudly (louder No 06/15/24 11:20 than talking or can be heard Do you often feel tired/ No 06/15/24 11:20 fatigued/ sleepy during daytime? Has anyone observed you stop No 06/15/24 11:20 breathing during sleep? STOP Results Negative 06/15/24 11:20 QUESTION #5 FULL TEXT : Do you snore loudly (louder than talking or can be heard through closed doors)? 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 Specify any problems Hx of Preganancy in last 3 No 06/15/24 11:20 Months Nurse Filling Out Transfusion [email or web address] 06/15/24 11:20 & Questions: Date: 06/15/24 06/15/24 11:20 Time: 11:21 06/15/24 11:20 Patient unable to answer at this time (ie. confused, unrespo /Reproduction History /Reproductive History - streetcar repairer helper: /Reproductive Hx- streetcar repairer helper Hx Now Gestational Age (in weeks): EDC: Hx Hx Para Hx Section SAB No 06/15/24 11:20 Active Medications Active Medications: Current Medications Generic Name Dose Route Start Last Admin Trade Name Freq PRN Reason Stop Dose Admin Sodium Chloride 1,000 mls @ 15 mls/hr 06/23/24 07:10 06/23/24 07:43 IV 06/28/24 20:29 15 mls/hr .Q48H PEARL Administration Protocol Cefazolin Sodium 2 gm/ N/A 20 mls @ 400 mls/hr 06/23/24 08:00 IV 06/23/24 08:02 PREOP ONE PFSH Medical History Bladder disease Hx of osteomyelitis Open wound UTI (urinary tract infection) DDD (degenerative disc disease), thoracic Uses wheelchair Self-catheterizes urinary bladder Migraine headache COVID Myelitis History of edema Hypotension Hx of tear of ACL (anterior cruciate ligament) Long-term current use of rituximab Former smoker Multiple sclerosis Osteomyelitis Immobility syndrome (paraplegic) Sacral decubitus ulcer, stage IV Home Medications ?Medication ?Instructions ?Recorded ?Last Taken ?Type gabapentin 300 mg capsule 300 mg PO DAILY NERVE PAIN 06/26/22 06/23/24 History (Neurontin) ascorbic acid (vitamin C) 1,000 mg 1 g PO DAILY SUPPLEMENT 06/15/24 06/22/24 History tablet (C-1000) baclofen 10 mg tablet 20 mg PO BID muscle spasm 06/15/24 06/23/24 History gabapentin 300 mg capsule 600 mg PO QHS NERVE PAIN 06/15/24 06/22/24 History methenamine hippurate 1 gram tablet 1 g PO QHS BLADDER 06/15/24 06/22/24 History sennosides 8.6 mg capsule (senna) 8.6 mg PO DAILY PRN constipation 06/15/24 Unknown History vibegron 75 mg tablet (Gemtesa) 75 mg PO DAILY OAB 06/15/24 06/23/24 History Allergy/AdvReac Type Severity Reaction Status Date / Time doxycycline Allergy Nausea/Vom/ Verified 06/23/24 07:27 Diarrhea Surgical History History of surgery Hx of hysterectomy Social History Smoking Status: Former smoker Review of Systems (Anesthesia) ROS Narrative System reviewed and no additional complaints, except as documented.
--- NOTE | 2024-06-23 08:41 | PCM.HP.STD ---
HPI - General General Date of Admission: 06/23/24 HPI Narrative PHUC ZAMORA, is a 48 F who presents with a sacral wound, here today for debridement , biopsy, and irrigating VAC. Current Encounter (DATE OF SURGERY H&P UPDATE): I saw and examined the patient this morning in pre-operative holding. We discussed risks and benefits of today's surgery and they would like to proceed. NO CHANGE in health history since last seen and evaluated. Ready to proceed with surgery. REPLACED BY [facility] Medical History Bladder disease Hx of osteomyelitis Open wound UTI (urinary tract infection) DDD (degenerative disc disease), thoracic Uses wheelchair Self-catheterizes urinary bladder Migraine headache COVID Myelitis History of edema Hypotension Hx of tear of ACL (anterior cruciate ligament) Long-term current use of rituximab Former smoker Multiple sclerosis Osteomyelitis Immobility syndrome (paraplegic) Sacral decubitus ulcer, stage IV Home Medications ?Medication ?Instructions ?Recorded ?Last Taken ?Type gabapentin 300 mg capsule 300 mg PO DAILY NERVE PAIN 06/26/22 06/23/24 History (Neurontin) ascorbic acid (vitamin C) 1,000 mg 1 g PO DAILY SUPPLEMENT 06/15/24 06/22/24 History tablet (C-1000) baclofen 10 mg tablet 20 mg PO BID muscle spasm 06/15/24 06/23/24 History gabapentin 300 mg capsule 600 mg PO QHS NERVE PAIN 06/15/24 06/22/24 History methenamine hippurate 1 gram tablet 1 g PO QHS BLADDER 06/15/24 06/22/24 History sennosides 8.6 mg capsule (senna) 8.6 mg PO DAILY PRN constipation 06/15/24 Unknown History vibegron 75 mg tablet (Gemtesa) 75 mg PO DAILY OAB 06/15/24 06/23/24 History Allergy/AdvReac Type Severity Reaction Status Date / Time doxycycline Allergy Nausea/Vom/ Verified 06/23/24 07:27 Diarrhea Surgical History History of surgery Hx of hysterectomy Social History Smoking Status: Former smoker Vital Signs Vital Signs Vital Signs: 06/23/24 07:28 06/23/24 07:28 06/23/24 07:56 Temperature 98.2 F 98.2 F Temperature Source Temporal Pulse Rate 78 78 Respiratory Rate 18 18 Respiratory Pattern Normal Blood Pressure 114/75 114/75 Blood Pressure Mean 88 Blood Pressure Source Monitor Blood Pressure Position Semi-Fowlers Blood Pressure Location Left Arm Pulse Ox 100 100 Oxygen Delivery Method Room Air Room Air Weight Weight: 147 lb Body Mass Index (BMI) 23.0 Physical Exam Narrative Sacral wound Wound is 0.9 x 0.4 cm sacral wound, 4 cm deep with larger 2 x 2 cm cavity beneath opening of the skin. Exposed bone at the base and the wound tunnels 1 cm superiorly There is fibrinous exudate and hypertrophic granulation tissue and biofilm within the wound Patient is insensate around the nerve edges Const alert and oriented x3 Eyes EOMs intact bilaterally Neck full ROM Resp normal respiratory effort Cardio regular rate GI non-distended GI Narrative: No ostomy Assessment & Plan Assessment/Plan (1) Sacral decubitus ulcer, stage IV: PLAN: I talked the patient extensively about the risks of surgery, including bleeding, infection, damage to surrounding structures, surgical site dehiscence and wound formation, need for wound care, need for repeat operations, failure to obtain the desired result, flap failure, larger wound, need for wound care, damage to the rectum, DVT/PE, and the risks of anesthesia including . The benefits and alternatives of this surgery were also discussed. All of their questions were answered, and they agreed to proceed with surgery. INTERVAL H&P PLAN, DATE OF SURGERY: We will proceed with surgery today. She had a DVT study of the lower extremity pre-op based on Hem recommendations. Negative for chronic or acute DVT. They recommended post-op Lovenox and repeat DVT study at discharge.
--- NOTE | 2024-06-23 08:55 | WND_PTH ---
PATIENT: PHUC REED LOC: MS3 U#:[id number] AGE/SX: 48/F ROOM: MS319 RE06/23/[address]: Dr. Lewis Villalta MD : 1975 BED: 1 DIS: 07/06/2024 SPEC #: [id number] RECD: 06/23/24 11:24 STATUS: ESTEBAN RODRIGUEZ #: [id number] CATALINA: 06/23/24 08:[address]: Lewis Villalta DEPT: SURGICAL PATHOLOGY RECD BY: Rafaela Tiwari ENTERED: 06/23/24 12:11 SP TYPE: Wound OTHR DR: Dr. Tyler Jose MD Tissues: A - Sacral region B - Sacral region Procedures: Decalcification bone/plaque Surgery Specimen Level IV HEADER OPERATION: Excision sacral wound with flap reconstruction PRE-OP DIAGNOSIS: Sacral decubitus ulcer, stage IV TISSUE SUBMITTED: A- Sacral ulcer- rule out skin cancer, B- Bone- rule out osteomyelitis MICROSCOPIC DIAGNOSIS A. Sacral ulcer, excision: A piece of skin with underlying tissue with acanthosis, hyperkeratosis and granulation tissue reaction. Negative for malignancy. B. Bone, excision: A piece of bone with reactive changes, negative for acute osteomyelitis. URBANO. 06/24/2024 MICROSCOPIC DESCRIPTION Slides are reviewed. GROSS DESCRIPTION A. Received in fixative is one container labeled with the patient's name and designated Sacral ulcer. The specimen consists of an irregular jo-white piece of skin measuring 2.7 x 0.5 x 0.3cm. The entire specimen is submitted in one cassette. B. Received in fixative is one container labeled with the patient's name and designated Bone. The specimen consists of a piece of bone measuring 0.3 x 0.1 x 0.1cm. The entire specimen is submitted in one cassette after decalcification. URBANO. 06/23/2024 TC: CPT:[id number]
[2024-06-23] MEDS: Cefazolin 2 GM in Syringe IV (09:00)
[2024-06-23] MEDS: Bupivacaine 0.25% 30 ML Vial (09:55)
[2024-06-23] MEDS: Methylene Blue 1% 100 MG/10 ML VIAL (09:56)
[2024-06-23] MEDS: Sodium Hypochlorite (Dakin's) 0.125% Wound Irrigation IRRIGATION (10:04)
--- NOTE | 2024-06-23 10:13 | PCM.POST.ANE ---
Anesthesia: Postop Eval I Current Vital Signs Temperature: 97.8 F Pulse Rate: 77 Blood Pressure: 115/88 Respiratory Rate: 20 Pulse Ox: 98 Assessment Airway patent: Yes Spontaneous unlabored respirations: Yes nausea: No Vomiting: No Anesthesia Complication: No Fluid Hydration Crystalloid volume administer (ml): 500 Total IV fluid infused: 500 Progress Note Anesthesia document: Postop Eval 1 completed: Yes
--- NOTE | 2024-06-23 13:27 | POSTOPAN2_ITS ---
Anesthesia Postop Eval I Sum Postop Eval Completion status Anesthesia document: Postop Eval 1 completed: Yes Anesthesia Postop Eval I Summary Anesthesia Postop Eval I Summary: Anesthesia Postop Eval I: Assessment Summary Airway patent Yes 06/23/24 10:13 ACID [email or web address] Spontaneous unlabored Yes 06/23/24 10:13 ACID [email or web address] respirations Mental status nausea No 06/23/24 10:13 ACID [email or web address] Vomiting No 06/23/24 10:13 ACID [email or web address] Anesthesia Postop Eval I: Fluid Summary Crystalloid volume administer 500 06/23/24 10:13 ACID [email or web address] (ml) Colloids volume administered ( ml) Blood Product volume administered (ml) Total IV fluid infused 500 06/23/24 10:13 ACID [email or web address] Anesthesia Postop Eval I: Summary Notes Anesthesia Complication No 06/23/24 10:13 ACID [email or web address] Anesthesia Complication Comment: Post-operative progress note Anesthesia: Postop Eval II Evaluation Mental status: Awake Pain Level: 0 nausea: No Vomiting: No Complications Anesthesia Complication: No
--- NOTE | 2024-06-23 13:27 | PCM.POSTANE2 ---
Anesthesia Postop Eval I Sum Postop Eval Completion status Anesthesia document: Postop Eval 1 completed: Yes Anesthesia Postop Eval I Summary Anesthesia Postop Eval I Summary: Anesthesia Postop Eval I: Assessment Summary Airway patent Yes 06/23/24 10:13 [email or web address] Spontaneous unlabored Yes 06/23/24 10:13 DIAGNOSTIC [email or web address] respirations Mental status nausea No 06/23/24 10:13 DIAGNOSTIC [email or web address].[email or web address] Vomiting No 06/23/24 10:13 DIAGNOSTIC [email or web address] Anesthesia Postop Eval I: Fluid Summary Crystalloid volume administer 500 06/23/24 10:13 DIAGNOSTIC [email or web address] (ml) Colloids volume administered ( ml) Blood Product volume administered (ml) Total IV fluid infused 500 06/23/24 10:13 [email or web address] Anesthesia Postop Eval I: Summary Notes Anesthesia Complication No 06/23/24 10:13 [email or web address] Anesthesia Complication Comment: Post-operative progress note Anesthesia: Postop Eval II Evaluation Mental status: Awake Pain Level: 0 nausea: No Vomiting: No Complications Anesthesia Complication: No
--- NOTE | 2024-06-23 13:57 | OP.PCM_ITS ---
Operative Report (Standard) Operative Information Date of Procedure: 06/23/24 Pre-Operative Diagnosis: Sacral wound with history of osteomyelitis Post-Operative Diagnosis: Same Surgery/Procedure Performed: 1) Excision of sacral wound for surgical prepara tion of placement of VAC, 7 x 2 cm (17636) 2) Bone biopsy of the sacrum (concern for osteomyelitis) (CPT: 62818) 3) Placement of non-disposable wound VAC, irrigating (VeraFlow) to the sacral wound, <50 cm ^2 (CPT 06725) yarn weight and strength tester: No Type of Anesthesia: MAC/Supplemental (with 20 cc of 0.25% Marcaine with 1:200,000 epinephrine) RN Documented Start/Stop Times: Operation Date: 06/23/24 08:55 Case Time Into Pre-Op 06/23/24 07:07 Anesthesia Start 06/23/24 08:58 Into Room 06/23/24 08:58 Out of Pre-Op 06/23/24 08:58 Procedure Start 06/23/24 09:23 Procedure End 06/23/24 10:01 Anesthesia End 06/23/24 10:05 Out of Room 06/23/24 10:05 Into Recovery 06/23/24 10:10 Out of Recovery 06/23/24 10:56 Procedure Start Time: 09:23 Procedure Stop Time: 10:01 Select all DRAINS/GRAFTS/IMPLANTS that apply: None Estimated Blood Loss: 10 cc Specimen collected: Yes Description of specimen(s) removed: 1) Biopsy of wound skin (r/o cancer), 2) biopsy of bone (r/o osteomyelitis), 3) Culture of bone, 4) Culture of deep soft tissue Description of surgery: Indications: Annette Lester is a delightful 48-year-old female with a 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 She presents today for excision of a sacral wound in preparation for flap reconstruction. Concern for possible osteomyelitis on the MRI. I discussed with her the risks, benefits, and alternatives to surgery, and she elected to proceed. Procedure details: Patient was correctly identified in preoperative holding and taken back to the operating room she was administered sedation and local anesthesia as noted above. She was prepped and draped in sterile fashion and all proper timeouts were performed. Methylene blue was added to the wound to ensure that the entire wound base was excised. Using a 10 blade scalpel and a rongeur the wound was completely excised for total excision including necrotic skin fat fascia of 7 x 2 cm. Hemostasis was obtained with Bovie electrocautery. The wound was irrigated with 3 L of normal saline and Irrisept. At the base of the wound was sacral bone which was biopsied with a rongeur (clean rongeur) for both pathologic analysis but also for cultures. Deep soft tissue cultures were also taken from fascial tissue adjacent to the sacrum. The ulcer was also sent to rule out skin cancer. An irrigating wound VAC was then applied for a total of 12 cm? for wound VAC application. Patient tolerated the procedure well. She was awakened and taken the PACU in stable condition. Postoperative plan: Admit to the floor under our service with pressure offloading bed and pressure offloading protocol. Continue irrigating wound VAC with plan to change the wound VAC on Friday, 28 June 2024, to assess the wound bed. Follow-up cultures. Continue irrigation with Dakin's. Once cultures begin to grow we will consult infectious disease and placed the patient on the proper antibiotics in preparation for flap surgery next week. Per hematology recommendation she will start Lovenox 40 mg daily (starting today) for DVT prophylaxis. Surgical Findings: Healthy appearing bone at the base of the wound. No signs of necrotic sequestrum Complications Complications: No Admit VTE Documentation VTE Mechan Device Prophylaxis: SCD's
[2024-06-23] MEDS: Enoxaparin 40 MG/0.4 ML Syringe SC (14:00)
[2024-06-23] MEDS: Ascorbic Acid 500 MG Tablet 1000 MG PO (15:16)
[2024-06-23] MEDS: Gabapentin 300 MG Capsule PO (15:16)
[2024-06-23] MEDS: Gabapentin 300 MG Capsule 600 MG PO (21:32)
[2024-06-23] MEDS: Methenamine Hippurate 1 GM Tablet PO (21:33)
[2024-06-23] MEDS: Baclofen 10 MG Tablet 20 MG PO (21:33)
[2024-06-24] MEDS: oxyCODONE 5 MG Tablet PO (00:35)
[2024-06-24 03:06] VITALS: BP 105/63; PULSE 77; RESP 14; TEMP 36.4; O2SAT 97
[2024-06-24 07:31] LABS: Absolute Neutrophil Count 3.4 X10^3/uL (2.0-7.7); Basophil# 0.02 X10^3/uL; Basophil% 0.3 % (0-1); Eosinophil# 0.04 X10^3/uL; Eosinophils% 0.7 % (0-5); Hematocrit 36.8 % (37-47); Hemoglobin 12.6 g/dL (12.0-15.0); Mean Corp Hgb Conc 34.2 g/dL (32-36); Mean Corpuscular Hgb 29.2 pg (27.0-32.0); Mean Corpuscular Volume 85.4 fL (81-99); Mean Platelet Vol. 9.6 fl (6.2-12.0); Monocyte# 0.52 X10^3/uL; NRBC Flagged by Analyzer 0 % (0-5); Neutrophil % 58.7 % (47-70); Platelet Count 249 K/mm3 (150-450); RBC Distribution Width CV 12.5 % (11.6-14.6); RBC Distribution Width SD 38.9 fl (35.1-43.9); Red Blood Count 4.31 M/mm3 (4.2-5.4); White Blood Count 5.8 K/mm3 (4.4-11.0)
[2024-06-24 07:43] LABS: AST(SGOT) 9 U/L (15-37); Alanine Aminotransfer ALT/SGPT 19 U/L (13-56); Albumin, Serum 3.2 g/dL (3.2-5.0); Alkaline Phosphatase 66 U/L (45-117); Anion Gap 7 (5-15); BUN 17 mg/dL (7-18); BUN/Creat Ratio 30.6 RATIO (10-20); Calcium,Total 8.3 mg/dL (8.5-10.1); Chloride 109 mmol/L (98-107); Creatinine, Serum 0.56 mg/dL (0.55-1.02); EST Glomerular Filtration Rate 124 mL/min (>60); Est Glom Filt Rate - Afr Amer 150 mL/min (>60); Estimated Creatinine Clearance 120.77 ml/min; Globulin 3.3 g/dL (2.2-4.2); Glucose 103 mg/dL (74-106); Potassium 3.8 mmol/L (3.5-5.1); Protein, Total 6.5 g/dL (6.4-8.2); Sodium Level 141 mmol/L (136-145)
--- NOTE | 2024-06-24 09:08 | PCM.PROGNOTE ---
Subjective Subjective Doing well. No pain. Endorses good protein intake. Objective Data Objective Data Vital Signs: Vital Signs Temp Pulse Resp BP Pulse Ox O2 Del Method 97.6 F L 77 14 105/63 97 Room Air 06/24/24 03:06 06/24/24 03:06 06/24/24 03:06 06/24/24 03:06 06/24/24 03:06 06/24/24 03:06 Oxygen Delivery Method Room Air Weight: 147 lb Body Mass Index (BMI) 23.0 Intake & Output: Intake and Output for Last 24 Hours 06/22/24 06/23/24 06/24/24 23:59 23:59 23:59 Intake Total 487.75 / 487.75 Output Total 400 / 400 Balance 487.75 / 87.75 -400 / -400 Lab / Micro Data 06/24/24 05:21 06/24/24 05:21 Labs: Laboratory Results - last 24 hr 06/24/24 05:21: WBC 5.8, RBC 4.31, Hgb 12.6, Hct 36.8 L, MCV 85.4, MCH 29.2, MCHC 34.2, RDW Std Deviation 38.9, RDW Coeff of Loki 12.5, Plt Count 249, MPV 9.6, Immature Gran % (Auto) 0.300, Neut % (Auto) 58.7, Lymph % (Auto) 31.0, [place] % (Auto) 9.0, Eos % (Auto) 0.7, Baso % (Auto) 0.3, Absolute Neuts (auto) 3.4, Absolute Lymphs (auto) 1.80, Nucleated RBC % 0, Sodium 141, Potassium 3.8, Chloride 109 H, Carbon Dioxide 25.0, Anion Gap 7, BUN 17, Creatinine 0.56, Estim Creat Clear Calc 120.77, Est GFR (MDRD) Af Amer 150, Est GFR (MDRD) Non-Af 124, BUN/Creatinine Ratio 30.6 H, Glucose 103, Calcium 8.3 L, Total Bilirubin 0.40, AST 9 L, ALT 19, Alkaline Phosphatase 66, Total Protein 6.5, Albumin 3.2, Globulin 3.3, Albumin/Globulin Ratio 1.0 Micro: Microbiology 06/23/24 10:10 Wound - Sacral Gram Stain - Final 06/23/24 10:12 Wound - Sacral Gram Stain - Final Physical Exam Narrative Sacral wound VAC holding suction. No blood in the VAC. Const alert and oriented x3 Eyes EOMs intact bilaterally Neck full ROM Resp normal respiratory effort Cardio regular rate GI non-distended GI Narrative: No ostomy Extremity Extremity Narrative: SCDs on and activated. No swelling on feet or the ankle Assessment & Plan Assessment/Plan (1) Sacral decubitus ulcer, stage IV: PLAN: Plan Neuro: PO pain meds as needed (gabapentin). Baclofen for spasms. : Self cath as needed, no issues post op. Bladder medicines restarted. Hem: 40 mg Lovenox SubQ daily and SCDs. ID: F/u cultures Continue pressure offloading on pressure bed. Continue high protein diet. Anticipate flap reconstruction next week. Continue Dakins irrigation of the wound. Charges/Coding Procedures Integumentary 111xxx-113xx: 02148 Global Visit
[2024-06-24] MEDS: Gabapentin 300 MG Capsule PO (10:21)
[2024-06-24] MEDS: Vibegron 75 MG TABLET PO (10:22)
[2024-06-24] MEDS: Baclofen 10 MG Tablet 20 MG PO ×2 (10:22→20:53)
[2024-06-24] MEDS: Ascorbic Acid 500 MG Tablet 1000 MG PO (10:22)
[2024-06-24] MEDS: Enoxaparin 40 MG/0.4 ML Syringe SC (10:22)
--- NOTE | 2024-06-24 11:15 | CASEMGMT ---
KAREN MEDRANO Assessment: KAREN MEDRANO to room to meet with pt for initial transition planning/care coordination assessment. KAREN MEDRANO introduced self and role at [facility], pt voices understanding and consents to assessment. Pt is A/O and answers all questions appropriately at this time. Pt resting in bed in no distress. Care providers, pharmacy, and demographics verified/updated. Strata: 1 PCP: Dr Adam Cross @ [facility] Practice Specialists: Dr Villalta-surgeon; Neurologist Dr Iniguez @ [facility] Preferred Pharmacy: [facility] Retail Insurance: [employer] Prescription Benefit: yes LNOK: Angel Lester, Living Arrangements: Pt lives with and 2 sons in a single story home with a ramp to enter. Pt reports she is I in ADL's. She has been W/C-bound for ~ 4 years and has all equipment to live day to day and is independent. Pt denies concerns at home. Transportation: Pt drives self in an adapted vehicle with a ramp and hand controls, denies concerns with transportation. DME: Pt has slide boards, W/C's, adjustable bed, and shower chair. HHC/SNF: Pt has had HHC in the past for infusions. Pt denies SNF stays. Pt has had a wound vac in the past and able to manage this @ home and was able to change her own wound vac, by using mirrors. She states the plan this hospitalization is to have a closure done next week and then will be on bedrest. She would like to go to [facility] @ discharge, if they are able to accept her. Cheri STANLEY, and KAREN MEDRANO, [place], made aware. Plan: TBD, pt requesting [facility] Jeff SEVILLA RN, CM
[2024-06-24 11:20] VITALS: BP 105/63; PULSE 77; RESP 14; TEMP 36.4; O2SAT 97
[2024-06-24 15:30] VITALS: RESP 14
[2024-06-24 17:00] VITALS: BP 105/65; PULSE 73; RESP 18; TEMP 36.6; O2SAT 100
[2024-06-24] MEDS: Methenamine Hippurate 1 GM Tablet PO (20:54)
[2024-06-24] MEDS: Acetaminophen 325 MG Tablet 650 MG PO (20:56)
[2024-06-24] MEDS: Gabapentin 300 MG Capsule 600 MG PO (20:57)
[2024-06-24 21:38] VITALS: BP 90/60; PULSE 83; RESP 16; TEMP 36.6; O2SAT 96
[2024-06-24 23:30] VITALS: BP 93/61; PULSE 70; RESP 16; TEMP 36.4; O2SAT 99
[2024-06-25 03:53] VITALS: BP 110/71; PULSE 78; RESP 16; TEMP 36.8; O2SAT 97
[2024-06-25 08:52] VITALS: BP 115/68; PULSE 108; RESP 16; TEMP 36.4; O2SAT 99
[2024-06-25] MEDS: Gabapentin 300 MG Capsule PO (09:02)
[2024-06-25] MEDS: Acetaminophen 325 MG Tablet 650 MG PO ×2 (09:02→21:10)
[2024-06-25] MEDS: Ascorbic Acid 500 MG Tablet 1000 MG PO (09:03)
[2024-06-25] MEDS: Enoxaparin 40 MG/0.4 ML Syringe SC (09:03)
[2024-06-25] MEDS: Baclofen 10 MG Tablet 20 MG PO ×2 (09:03→21:04)
[2024-06-25] MEDS: Vibegron 75 MG TABLET PO (09:03)
[2024-06-25 09:15] VITALS: PULSE 104
--- NOTE | 2024-06-25 10:05 | CASEMGMT ---
Discharge Planning A list of?SNF providers including quality and resource use data and consistent with the patient's preferred geographic region, medical needs, and insurance network was created in [employer] Guide.? This list was provided to the SW. Wendie Hankins Discharge Planning Asst.
--- NOTE | 2024-06-25 11:36 | CASEMGMT ---
Social Work- A list of SNF providers including quality and resource use data and consistent with the patient?s preferred geographic region, medical needs, and insurance network were provided from the [employer] Guide. SW updated that TCU declined referral. SW will follow up next week on additional selections. Pt scheduled to have surgery Friday. MALACHI Whipple
--- NOTE | 2024-06-25 12:05 | WOUNDNOTE ---
wound photo: sacrum
--- NOTE | 2024-06-25 12:17 | PN.SURG_ITS ---
<Statement entered by Lewis Villalta MD - 06/25/24 13:34> Pt seen & evaluated w/HEIDY. I personally interviewed & exam the pt. I was involved in all aspects of pt's orders, interpretation of results & treatment Subjective Subjective Patient denying pain. She states that she has been having some heart burn and would like Prilosec to help with the acid reflux. She states she has been doing a good job increasing her protein intake. She had a migraine through the night and is concerned it might come back. She denies needing anything more than Tylenol for it. Objective Data Objective Data Vital Signs: Vital Signs Temp Pulse Resp BP Pulse Ox O2 Del Method 97.6 F L 104 H 16 115/68 99 Room Air 06/25/24 08:52 06/25/24 09:15 06/25/24 08:52 06/25/24 08:52 06/25/24 08:52 06/25/24 09:15 Oxygen Delivery Method Room Air Weight: 147 lb Body Mass Index (BMI) 23.0 Intake & Output: Intake and Output for Last 24 Hours 06/23/24 06/24/24 06/25/24 23:59 23:59 23:59 Intake Total 487.75 / 487.75 830 / 830 200 / 200 Output Total 1300 / 1300 Balance 487.75 / 87.75 -470 / -470 200 / 200 Lab / Micro Data Attestation: I reviewed the patient's lab results. 06/24/24 05:21 06/24/24 05:21 Micro: Microbiology 06/23/24 10:12 Wound - Sacral Gram Stain - Final 06/23/24 10:12 Wound - Sacral Wound Culture - Preliminary No growth-Final to follow 06/23/24 10:12 Wound - Sacral Anaerobic Culture - Preliminary No growth in 48 hours. 06/23/24 10:10 Wound - Sacral Gram Stain - Final 06/23/24 10:10 Wound - Sacral Wound Culture - Preliminary No growth-Final to follow 06/23/24 10:10 Wound - Sacral Anaerobic Culture - Preliminary No growth in 48 hours. Physical Exam Narrative Sacral wound is nice beefy pink. Able to palpate bone. No active bleeding. Neda wound is clear. Wound VAC changed today. She has been tolerating the wound VAC. Const alert and oriented x3 General Appearance: cooperative HEENT normocephalic Eyes General Eye: normal appearance of both eyes Neck full ROM Resp normal respiratory effort Effort and Inspection: able to speak in complete sentences Cardio regular rate and regular rhythm Extremity normal capillary refill Neuro oriented x3 Assessment & Plan Assessment/Plan (1) Sacral decubitus ulcer, stage IV: PLAN: Plan Neuro: PO pain meds as needed (gabapentin). Baclofen for spasms. GI: Patient complaining of heartburn from all of the protein intake. Will start her on PPI. She denies needing any stool softener at this time. : Self cath as needed, no issues post op. Bladder medicines restarted. Hem: 40 mg Lovenox SubQ daily and SCDs. Preliminary tissue and bone cultures with no growth. Continue pressure offloading on pressure bed. Continue high protein diet. Anticipate flap reconstruction next week. Irrigating wound VAC changed today. Continue Dakins irrigating wound VAC at 125 mmHg. Discussed plan of care with Dr. Villalta. Charges/Coding Procedures Integumentary 111xxx-113xx: [id number] Global Visit
[2024-06-25] MEDS: Pantoprazole Sodium 40 MG Tablet PO (13:13)
[2024-06-25] MEDS: Sodium Hypochlorite (Dakin's) 0.125% Wound Irrigation IRRIGATION (14:16)
[2024-06-25 14:20] VITALS: BP 96/45; PULSE 100; RESP 16; TEMP 36.7; O2SAT 100
[2024-06-25 17:18] VITALS: BP 104/73; PULSE 103; RESP 16; TEMP 36.5; O2SAT 96
[2024-06-25 21:02] VITALS: BP 98/60; PULSE 86; RESP 18; TEMP 36.9; O2SAT 97
[2024-06-25] MEDS: Methenamine Hippurate 1 GM Tablet PO (21:03)
[2024-06-25] MEDS: Gabapentin 300 MG Capsule 600 MG PO (21:04)
[2024-06-25] MEDS: oxyCODONE 5 MG Tablet PO (21:10)
[2024-06-26 04:10] VITALS: BP 102/63; PULSE 83; RESP 16; TEMP 36.8; O2SAT 98
[2024-06-26 09:50] VITALS: BP 105/57; PULSE 99; RESP 16; TEMP 36.9; O2SAT 100
[2024-06-26] MEDS: Pantoprazole Sodium 40 MG Tablet PO (10:01)
[2024-06-26] MEDS: Gabapentin 300 MG Capsule PO (10:01)
[2024-06-26] MEDS: Enoxaparin 40 MG/0.4 ML Syringe SC (10:01)
[2024-06-26] MEDS: Baclofen 10 MG Tablet 20 MG PO ×2 (10:01→23:15)
[2024-06-26] MEDS: Ascorbic Acid 500 MG Tablet 1000 MG PO (10:01)
[2024-06-26] MEDS: Vibegron 75 MG TABLET PO (10:01)
--- NOTE | 2024-06-26 11:18 | PCM.PROGNOTE ---
Subjective Subjective Doing well. Has been working with her rubber bands on upper extremity strength. Has been eating a high protein diet and pressure offloading. VAC change went well yesterday, no issues. Endorses that she's consistently getting the Lovenox injections. Objective Data Objective Data Vital Signs: Vital Signs Temp Pulse Resp BP Pulse Ox O2 Del Method 98.5 F 99 16 105/57 L 100 Room Air 06/26/24 09:50 06/26/24 09:50 06/26/24 09:50 06/26/24 09:50 06/26/24 09:50 06/26/24 09:50 Oxygen Delivery Method Room Air Weight: 147 lb Body Mass Index (BMI) 23.0 Intake & Output: Intake and Output for Last 24 Hours 06/24/24 06/25/24 06/26/24 23:59 23:59 23:59 Intake Total 830 / 830 900 / 1300 800 / 800 Output Total 1300 / 1300 400 / 1000 600 / 600 Balance -470 / -470 500 / 300 200 / 200 Lab / Micro Data 06/24/24 05:21 06/24/24 05:21 Micro: Microbiology 06/23/24 10:10 Wound - Sacral Gram Stain - Final 06/23/24 10:10 Wound - Sacral Wound Culture - Preliminary No growth-Final to follow 06/23/24 10:10 Wound - Sacral Anaerobic Culture - Preliminary No growth in 48 hours. 06/23/24 10:12 Wound - Sacral Gram Stain - Final 06/23/24 10:12 Wound - Sacral Wound Culture - Preliminary 06/23/24 10:12 Wound - Sacral Anaerobic Culture - Preliminary No growth in 48 hours. Physical Exam Narrative Wound VAC holding suction on VeraFlow setting. Const alert and oriented x3 General Appearance: cooperative HEENT normocephalic Eyes General Eye: normal appearance of both eyes Neck full ROM Resp normal respiratory effort Effort and Inspection: able to speak in complete sentences Cardio regular rate and regular rhythm Extremity normal capillary refill Extremity Narrative: SCDs on and activated. No lower extremity swelling. Neuro oriented x3 Assessment & Plan Assessment/Plan (1) Sacral decubitus ulcer, stage IV: PLAN: Plan Neuro: PO pain meds as needed (gabapentin). Baclofen for spasms. : Self cath as needed, no issues post op. Bladder medicines restarted. Hem: 40 mg Lovenox SubQ daily and SCDs. ID: F/u cultures. NGTD on the bone or deep soft tissue cultures. No signs of osteomyelitis on the pathology analysis. No signs of malignancy on evaluation of the ulcer/skin. Continue pressure offloading on pressure bed. Continue high protein diet. Anticipate flap reconstruction next week. Continue Dakins irrigation of the wound (VAC changed Friday, 25 Jun 2024, and can stay until flap reconstruction this week on 30 Jun 2024) Charges/Coding Procedures Integumentary 111xxx-113xx: 63838 Global Visit
[2024-06-26 14:02] VITALS: BP 108/53; PULSE 96; RESP 17; TEMP 36.6; O2SAT 97
[2024-06-26 17:33] VITALS: BP 118/61; PULSE 88; RESP 17; TEMP 36.8; O2SAT 97
[2024-06-26 23:10] VITALS: BP 109/62; PULSE 87; RESP 18; TEMP 36.9; O2SAT 98
[2024-06-26] MEDS: Gabapentin 300 MG Capsule 600 MG PO (23:14)
[2024-06-26] MEDS: Methenamine Hippurate 1 GM Tablet PO (23:14)
[2024-06-27 04:15] VITALS: BP 97/48; PULSE 83; RESP 18; TEMP 36.9; O2SAT 93
[2024-06-27 09:41] VITALS: BP 113/66; PULSE 84; RESP 17; TEMP 36.5; O2SAT 99
[2024-06-27] MEDS: Vibegron 75 MG TABLET PO (09:53)
[2024-06-27] MEDS: Ascorbic Acid 500 MG Tablet 1000 MG PO (09:54)
[2024-06-27] MEDS: Gabapentin 300 MG Capsule PO (09:54)
[2024-06-27] MEDS: Enoxaparin 40 MG/0.4 ML Syringe SC (09:54)
[2024-06-27] MEDS: Pantoprazole Sodium 40 MG Tablet PO (09:54)
[2024-06-27] MEDS: Baclofen 10 MG Tablet 20 MG PO ×2 (09:54→22:19)
--- NOTE | 2024-06-27 14:12 | PCM.PROGNOTE ---
Subjective Subjective Doing well overall. No new problems today. Tolerating irrigating VAC. 24 HOUR EVENTS: Cultures from the deep soft tissue now growing rare coag neg Staph after several days of growth. I'm starting her on Ancef and will consult ID in the AM. Objective Data Objective Data Vital Signs: Vital Signs Temp Pulse Resp BP Pulse Ox O2 Del Method 97.7 F L 84 17 113/66 99 Room Air 06/27/24 09:41 06/27/24 09:41 06/27/24 09:41 06/27/24 09:41 06/27/24 09:41 06/27/24 09:41 Oxygen Delivery Method Room Air Weight: 147 lb Body Mass Index (BMI) 23.0 Intake & Output: Intake and Output for Last 24 Hours 06/25/24 06/26/24 06/27/24 23:59 23:59 23:59 Intake Total 900 / 1300 800 / 800 Output Total 400 / 1000 1350 / 1350 Balance 500 / 300 -550 / -550 Lab / Micro Data 06/24/24 05:21 06/24/24 05:21 Micro: Microbiology 06/23/24 10:10 Wound - Sacral Gram Stain - Final 06/23/24 10:10 Wound - Sacral Wound Culture - Final No growth aerobically. 06/23/24 10:10 Wound - Sacral Anaerobic Culture - Final No anaerobic bacteria isolated. 06/23/24 10:12 Wound - Sacral Gram Stain - Final 06/23/24 10:12 Wound - Sacral Wound Culture - Preliminary Coag Negative Staph 06/23/24 10:12 Wound - Sacral Anaerobic Culture - Preliminary No growth in 48 hours. Physical Exam Narrative Wound VAC holding suction on VeraFlow setting. Const alert and oriented x3 General Appearance: cooperative HEENT normocephalic Eyes General Eye: normal appearance of both eyes Neck full ROM Resp normal respiratory effort Effort and Inspection: able to speak in complete sentences Cardio regular rate and regular rhythm Extremity normal capillary refill Extremity Narrative: SCDs on and activated. No lower extremity swelling. Neuro oriented x3 Assessment & Plan Assessment/Plan (1) Sacral decubitus ulcer, stage IV: PLAN: Plan Neuro: PO pain meds as needed (gabapentin). Baclofen for spasms. : Self cath as needed, no issues post op. Bladder medicines restarted. Hem: 40 mg Lovenox SubQ daily and SCDs. ID: F/u cultures. Deep soft tissue cultures positive for coag negative staph. Starting Ancef 2 g IV q 8 hours for now and consulting ID in the morning. No signs of osteomyelitis on the pathology analysis. No signs of malignancy on evaluation of the ulcer/skin. Continue pressure offloading on pressure bed. Continue high protein diet. Anticipate flap reconstruction next week. Continue Dakins irrigation of the wound (VAC changed Friday, 25 Jun 2024, and can stay until flap reconstruction this week on 30 Jun 2024) Charges/Coding Procedures Integumentary 111xxx-113xx: 71222 Global Visit
[2024-06-27 14:38] VITALS: BP 106/63; PULSE 107; RESP 15; TEMP 36.8; O2SAT 97
[2024-06-27] MEDS: Cefazolin 2 GM in Syringe IV ×2 (15:17→22:17)
[2024-06-27] MEDS: 0.9% Saline Lock 10 ML Syringe IV (15:18)
[2024-06-27 17:21] VITALS: PULSE 96
[2024-06-27 22:19] VITALS: BP 110/67; PULSE 97; RESP 18; TEMP 36.6; O2SAT 98
[2024-06-27] MEDS: Methenamine Hippurate 1 GM Tablet PO (22:20)
[2024-06-27] MEDS: Gabapentin 300 MG Capsule 600 MG PO (22:22)
[2024-06-28] MEDS: Cefazolin 2 GM in Syringe IV ×3 (05:08→21:30)
[2024-06-28] MEDS: 0.9% Saline Lock 10 ML Syringe IV ×3 (05:08→21:30)
[2024-06-28 05:23] VITALS: BP 99/60; PULSE 78; RESP 18; TEMP 36.6; O2SAT 97
--- NOTE | 2024-06-28 06:00 | EKG12_ITS ---
Test Reason : PRE-OP Blood Pressure : */* mmHG Vent. Rate : 74 BPM Atrial Rate : 74 BPM P-R Int : 128 ms QRS Dur : 88 ms QT Int : 392 ms P-R-T Axes : 63 72 62 degrees QTcB Int : 435 ms Normal sinus rhythm Normal ECG When compared with ECG of 18-Dec-2022 08:30, No significant change was found Confirmed by EVANGELINA PARDO, GURU ([id number]), health editor DESTINI BIGGS ([id number]) on 06/28/2024 8:29:10 AM Referred By: JOSE LUIS Confirmed By: GURU HUTCHINSON MD
[2024-06-28 06:35] LABS: Absolute Lymphocyte Count 1.65 X10^3/uL (0.83-4.51); Absolute Neutrophil Count 2.5 X10^3/uL (2.0-7.7); Basophil# 0.04 X10^3/uL; Basophil% 0.8 % (0-1); Eosinophil# 0.17 X10^3/uL; Eosinophils% 3.5 % (0-5); Hematocrit 35.3 % (37-47); Hemoglobin 11.5 g/dL (12.0-15.0); Lymphocyte # 1.65 X10^3/ul (0.83-4.51); Lymphocyte % 33.7 % (19-41); Mean Corp Hgb Conc 32.6 g/dL (32-36); Mean Corpuscular Hgb 28.8 pg (27.0-32.0); Mean Corpuscular Volume 88.5 fL (81-99); Mean Platelet Vol. 9.2 fl (6.2-12.0); Monocyte% 10.2 % (0-10); NRBC Flagged by Analyzer 0 % (0-5); Neutrophil # 2.52 X10^3/uL (2.7-7.7); Neutrophil % 51.6 % (47-70); Platelet Count 208 K/mm3 (150-450); RBC Distribution Width CV 12.9 % (11.6-14.6); RBC Distribution Width SD 41.6 fl (35.1-43.9); Red Blood Count 3.99 M/mm3 (4.2-5.4); White Blood Count 4.9 K/mm3 (4.4-11.0)
[2024-06-28 07:23] LABS: Anion Gap 6 (5-15); BUN 16 mg/dL (7-18); BUN/Creat Ratio 46.1 RATIO (10-20); Calcium,Total 8.4 mg/dL (8.5-10.1); Chloride 106 mmol/L (98-107); Creatinine, Serum 0.35 mg/dL (0.55-1.02); EST Glomerular Filtration Rate 213 mL/min (>60); Est Glom Filt Rate - Afr Amer 258 mL/min (>60); Estimated Creatinine Clearance 193.23 ml/min; Glucose 86 mg/dL (74-106); Potassium 3.7 mmol/L (3.5-5.1); Sodium Level 140 mmol/L (136-145)
[2024-06-28 07:57] VITALS: BP 98/51; PULSE 72; RESP 16; TEMP 35.7; O2SAT 98
--- NOTE | 2024-06-28 10:45 | NURSING ---
student nurse assisting providing care: vitals/meds under direction of her nursing informatics clinical analyst.
[2024-06-28] MEDS: Sodium Hypochlorite (Dakin's) 0.125% Wound Irrigation IRRIGATION (11:10)
[2024-06-28] MEDS: Baclofen 10 MG Tablet 20 MG PO ×2 (11:11→21:29)
[2024-06-28] MEDS: Vibegron 75 MG TABLET PO (11:11)
[2024-06-28] MEDS: Enoxaparin 40 MG/0.4 ML Syringe SC (11:11)
[2024-06-28] MEDS: Ascorbic Acid 500 MG Tablet 1000 MG PO (11:12)
[2024-06-28] MEDS: Pantoprazole Sodium 40 MG Tablet PO (11:12)
[2024-06-28] MEDS: Gabapentin 300 MG Capsule PO (11:15)
--- NOTE | 2024-06-28 13:12 | PN_ITS ---
Subjective Subjective Patient doing well this morning. She has had a bowel movement, no issues with wound VAC holding suction. She continues to self cath. She has been compliant with high-protein diet and pressure offloading with the offloading mattress. I spoke with infectious disease today as she is growing Staphylococcus hominis hominis. She has been tentatively started on Ancef Objective Data Objective Data Vital Signs: Vital Signs Temp Pulse Resp BP Pulse Ox O2 Del Method 96.3 F L 72 16 98/51 L 98 Room Air 06/28/24 07:57 06/28/24 07:57 06/28/24 07:57 06/28/24 07:57 06/28/24 07:57 06/28/24 07:57 Oxygen Delivery Method Room Air Weight: 147 lb Body Mass Index (BMI) 23.0 Intake & Output: Intake and Output for Last 24 Hours 06/26/24 06/27/24 06/28/24 23:59 23:59 23:59 Intake Total 800 / 800 40 / 40 20 / 20 Output Total 1350 / 1350 700 / 700 400 / 400 Balance -550 / -550 -660 / -660 -380 / -380 Lab / Micro Data 06/28/24 06:01 06/28/24 06:01 Labs: Laboratory Results - last 24 hr 06/28/24 06:01: WBC 4.9, RBC 3.99 L, Hgb 11.5 L, Hct 35.3 L, MCV 88.5, MCH 28.8, MCHC 32.6, RDW Std Deviation 41.6, RDW Coeff of Loki 12.9, Plt Count 208, MPV 9.2, Immature Gran % (Auto) 0.200, Neut % (Auto) 51.6, Lymph % (Auto) 33.7, Hemphill % (Auto) 10.2 H, Eos % (Auto) 3.5, Baso % (Auto) 0.8, Absolute Neuts (auto) 2.5, Absolute Lymphs (auto) 1.65, Nucleated RBC % 0, Sodium 140, Potassium 3.7, Chloride 106, Carbon Dioxide 28.0, Anion Gap 6, BUN 16, Creatinine 0.35 L, Estim Creat Clear Calc 193.23, Est GFR (MDRD) Af Amer 258, Est GFR (MDRD) Non-Af 213, BUN/Creatinine Ratio 46.1 H, Glucose 86, Calcium 8.4 L Micro: Microbiology 06/23/24 10:12 Wound - Sacral Gram Stain - Final 06/23/24 10:12 Wound - Sacral Wound Culture - Final Staphylococcus hominis hominis 06/23/24 10:12 Wound - Sacral Anaerobic Culture - Final No anaerobic bacteria isolated. 06/23/24 10:10 Wound - Sacral Gram Stain - Final 06/23/24 10:10 Wound - Sacral Wound Culture - Final No growth aerobically. 06/23/24 10:10 Wound - Sacral Anaerobic Culture - Final No anaerobic bacteria isolated. Physical Exam Narrative Wound VAC holding suction on VeraFlow setting. Const alert and oriented x3 General Appearance: cooperative HEENT normocephalic Eyes General Eye: normal appearance of both eyes Neck full ROM Resp normal respiratory effort Effort and Inspection: able to speak in complete sentences Cardio regular rate and regular rhythm Extremity normal capillary refill Extremity Narrative: SCDs on and activated. No lower extremity swelling. Neuro oriented x3 Assessment & Plan Assessment/Plan (1) Sacral decubitus ulcer, stage IV: PLAN: Plan Neuro: PO pain meds as needed (gabapentin). Baclofen for spasms. : Self cath as needed, no issues post op. Bladder medicines restarted. Hem: 40 mg Lovenox SubQ daily and SCDs. ID: F/u cultures. Deep soft tissue cultures positive for Staphylococcus hominis hominis (pansensitive). Starting Ancef 2 g IV q 8 hours for now, ID has been consulted No signs of osteomyelitis on the pathology analysis. No signs of malignancy on evaluation of the ulcer/skin. Continue pressure offloading on pressure bed. Continue high protein diet. Anticipate flap reconstruction this week. Continue Dakins irrigation of the wound (VAC changed Friday, 25 Jun 2024, and can stay until flap reconstruction this week on Fri, 30 Jun 2024) Charges/Coding Procedures Integumentary 111xxx-113xx: [id number] Global Visit
--- NOTE | 2024-06-28 13:31 | PCM.CONS.GEN ---
Assessment & Plan Assessment/Plan (1) Infected decubitus ulcer: PLAN: OR 05/[address] Villalta for I&D, cx with MS-S hominis. Agree with cefazolin. Path neg for osteo. Flap planned. Plan on short course abx. Will follow. Thank you, d/w Dr. 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 Taken to OR 06/23/[address] Villalta for I&D. Wound cx with CoNS, cefazolin started. No fever, no n/v/d. Full ROS performed and neg except as noted above. [facility] Medical History Bladder disease Hx of osteomyelitis Open wound UTI (urinary tract infection) DDD (degenerative disc disease), thoracic Uses wheelchair Self-catheterizes urinary bladder Migraine headache COVID Myelitis History of edema Hypotension Hx of tear of ACL (anterior cruciate ligament) Long-term current use of rituximab Former smoker Multiple sclerosis Osteomyelitis Immobility syndrome (paraplegic) Sacral decubitus ulcer, stage IV Home Medications ?Medication ?Instructions ?Recorded ?Last Taken ?Type gabapentin 300 mg capsule 300 mg PO DAILY NERVE PAIN 06/26/22 06/23/24 History (Neurontin) ascorbic acid (vitamin C) 1,000 mg 1 g PO DAILY SUPPLEMENT 06/15/24 06/22/24 History tablet (C-1000) baclofen 10 mg tablet 20 mg PO BID muscle spasm 06/15/24 06/23/24 History gabapentin 300 mg capsule 600 mg PO QHS NERVE PAIN 06/15/24 06/22/24 History methenamine hippurate 1 gram tablet 1 g PO QHS BLADDER 06/15/24 06/22/24 History sennosides 8.6 mg capsule (senna) 8.6 mg PO DAILY PRN constipation 06/15/24 Unknown History vibegron 75 mg tablet (Gemtesa) 75 mg PO DAILY OAB 06/15/24 06/23/24 History Allergy/AdvReac Type Severity Reaction Status Date / Time doxycycline Allergy Nausea/Vom/ Verified 06/23/24 07:27 Diarrhea Surgical History History of surgery Hx of hysterectomy Social History Smoking Status: Former smoker Physical Exam Const alert, oriented x3 and no apparent distress General Appearance: cooperative HEENT normocephalic and head/scalp atraumatic Eyes PERRL and EOMs intact bilaterally Neck supple and No nodes Resp normal air movement and clear to auscultation bilaterally Cardio regular rate and regular rhythm GI soft to palpation, non-tender and non-distended Extremity General Extremity: Negative for edema Skin Skin Narrative: reviewed wound photo Neuro CN's II-XII intact bilaterally Lab / Micro Data Attestation: I reviewed the patient's lab results. 06/28/24 06:01 06/28/24 06:01 Labs: Laboratory Results - last 24 hr 06/28/24 06:01: WBC 4.9, RBC 3.99 L, Hgb 11.5 L, Hct 35.3 L, MCV 88.5, MCH 28.8, MCHC 32.6, RDW Std Deviation 41.6, RDW Coeff of Loki 12.9, Plt Count 208, MPV 9.2, Immature Gran % (Auto) 0.200, Neut % (Auto) 51.6, Lymph % (Auto) 33.7, Guadalupe % (Auto) 10.2 H, Eos % (Auto) 3.5, Baso % (Auto) 0.8, Absolute Neuts (auto) 2.5, Absolute Lymphs (auto) 1.65, Nucleated RBC % 0, Sodium 140, Potassium 3.7, Chloride 106, Carbon Dioxide 28.0, Anion Gap 6, BUN 16, Creatinine 0.35 L, Estim Creat Clear Calc 193.23, Est GFR (MDRD) Af Amer 258, Est GFR (MDRD) Non-Af 213, BUN/Creatinine Ratio 46.1 H, Glucose 86, Calcium 8.4 L Micro: Microbiology 06/23/24 10:12 Wound - Sacral Gram Stain - Final 06/23/24 10:12 Wound - Sacral Wound Culture - Final Staphylococcus hominis hominis 06/23/24 10:12 Wound - Sacral Anaerobic Culture - Final No anaerobic bacteria isolated. 06/23/24 10:10 Wound - Sacral Gram Stain - Final 06/23/24 10:10 Wound - Sacral Wound Culture - Final No growth aerobically. 06/23/24 10:10 Wound - Sacral Anaerobic Culture - Final No anaerobic bacteria isolated.
[2024-06-28 14:29] VITALS: BP 109/67; PULSE 100; RESP 16; TEMP 36.6; O2SAT 99
[2024-06-28 20:55] VITALS: BP 119/72; PULSE 90; RESP 16; TEMP 37.1; O2SAT 96
[2024-06-28] MEDS: Methenamine Hippurate 1 GM Tablet PO (21:29)
[2024-06-28] MEDS: Gabapentin 300 MG Capsule 600 MG PO (21:30)
[2024-06-29 02:55] VITALS: BP 84/44; PULSE 78; RESP 14; TEMP 36; O2SAT 98
[2024-06-29] MEDS: 0.9% Saline Lock 10 ML Syringe IV (05:32)
[2024-06-29] MEDS: Cefazolin 2 GM in Syringe IV ×3 (05:32→21:57)
[2024-06-29 05:35] VITALS: BP 91/49; PULSE 76; RESP 16; TEMP 36.6; O2SAT 97
[2024-06-29] MEDS: Vibegron 75 MG TABLET PO (08:32)
[2024-06-29] MEDS: Enoxaparin 40 MG/0.4 ML Syringe SC (08:32)
[2024-06-29] MEDS: Baclofen 10 MG Tablet 20 MG PO ×2 (08:32→21:57)
[2024-06-29] MEDS: Pantoprazole Sodium 40 MG Tablet PO (08:32)
[2024-06-29] MEDS: Ascorbic Acid 500 MG Tablet 1000 MG PO (08:33)
[2024-06-29] MEDS: Gabapentin 300 MG Capsule PO (08:33)
[2024-06-29 09:17] VITALS: BP 103/60; PULSE 91; RESP 16; TEMP 36; O2SAT 98
[2024-06-29 12:14] VITALS: BP 115/60; PULSE 81; RESP 16; TEMP 36.6; O2SAT 97
--- NOTE | 2024-06-29 13:12 | PN.SURG_ITS ---
<Statement entered by Lewis Villalta MD - 06/29/24 16:45> I have personally performed a face to face assessment of the patient and have reviewed the HEIDY Note. Subjective Subjective Postop #6 Patient is doing well. Denies any complaints. Pain controlled. Plan for irrigating wound vac dressing today. Objective Data Objective Data Vital Signs: Vital Signs Temp Pulse Resp BP Pulse Ox O2 Del Method 97.9 F 81 16 115/60 97 Room Air 06/29/24 12:14 06/29/24 12:14 06/29/24 12:14 06/29/24 12:14 06/29/24 12:14 06/29/24 12:14 Oxygen Delivery Method Room Air Weight: 147 lb Body Mass Index (BMI) 23.0 Intake & Output: Intake and Output for Last 24 Hours 06/27/24 06/28/24 06/29/24 23:59 23:59 23:59 Intake Total 40 / 40 660 / 660 620 / 620 Output Total 700 / 700 400 / 400 500 / 500 Balance -660 / -660 260 / 260 120 / 120 Lab / Micro Data Attestation: I reviewed the patient's lab results. 06/28/24 06:01 06/28/24 06:01 Micro: Microbiology 06/23/24 10:12 Wound - Sacral Gram Stain - Final 06/23/24 10:12 Wound - Sacral Wound Culture - Final Staphylococcus hominis hominis 06/23/24 10:12 Wound - Sacral Anaerobic Culture - Final No anaerobic bacteria isolated. 06/23/24 10:10 Wound - Sacral Gram Stain - Final 06/23/24 10:10 Wound - Sacral Wound Culture - Final No growth aerobically. 06/23/24 10:10 Wound - Sacral Anaerobic Culture - Final No anaerobic bacteria isolated. Physical Exam Narrative Sacral ulcer is nice beefy pink. No signs of bleeding. Bone is palpable but covered with granulation tissue. Neda wound is clear. The irrigating wound VAC dressing has been changed. Const alert and oriented x3 General Appearance: cooperative HEENT normocephalic Eyes General Eye: normal appearance of both eyes Resp normal respiratory effort and normal air movement Effort and Inspection: able to speak in complete sentences Cardio regular rate and regular rhythm Back/Spine normal ROM Extremity normal capillary refill Neuro oriented x3 and CN's II-XII intact bilaterally Psych mental status grossly normal, thought process normal and cooperative Appearance: grossly normal Assessment & Plan Assessment/Plan (1) Infected decubitus ulcer: (2) Sacral decubitus ulcer, stage IV: (3) Immobility syndrome (paraplegic): PLAN: Plan Neuro: PO pain meds as needed (gabapentin). Baclofen for spasms. : Self cath as needed, no issues post op. Bladder medicines restarted. Hem: 40 mg Lovenox SubQ daily and SCDs. ID: ID consulted. Deep soft tissue cultures positive for Staphylococcus hominis hominis (pansensitive). Continue Cefazolin. No signs of osteomyelitis on the pathology analysis. No signs of malignancy on evaluation of the ulcer/skin. Continue pressure offloading on pressure bed. Continue high protein diet. Anticipate flap reconstruction Friday. Irrigating wound (with dilute Dakin's solution) VAC changed today, Discussed plan of care with Dr. Villalta. Charges/Coding Procedures Integumentary 111xxx-113xx: [id number] Global Visit
--- NOTE | 2024-06-29 13:31 | WOUNDNOTE ---
wound photo: sacrum
--- NOTE | 2024-06-29 15:12 | CASEMGMT ---
Social Work- SW met with pt to discuss FOC at discharge. Pt selected [facility], reporting that the imaging system administrator is a close personal friend and they have been in discussion regrading referral. SW updated pt that SW was told they were full; pt reports she would like referral, as imaging system administrator/friend assured pt that they would have a bed following her surgery. Pt selected [facility] as alternate choice and acknowledged that she is uncertain if her wound vac would make her high enough acuity for them to accept. Pt reported she had no other choices at this time. LIZETH updated [facility]. LIZETH remains available to follow. MALACIH Whipple
--- NOTE | 2024-06-29 15:36 | CASEMGMT ---
Addendum entered by Wendie Hankins 06/29/24 16:02: [facility] has accepted. Pt will need a Covid test prior to discharge. SW updated. Wendie Hankins DC Planning Asst. Original Note: Referral sent to [facility]. Wendie Hankins DC Planning Asst.
[2024-06-29 16:13] VITALS: BP 104/63; PULSE 88; RESP 16; TEMP 36.9; O2SAT 95
[2024-06-29] MEDS: Methenamine Hippurate 1 GM Tablet PO (21:57)
[2024-06-29] MEDS: Gabapentin 300 MG Capsule 600 MG PO (21:57)
[2024-06-29 22:08] VITALS: BP 120/54; PULSE 92; RESP 16; TEMP 36.8; O2SAT 97
[2024-06-30] VITALS (11 sets, daily range): BP systolic 92–114; BP diastolic 54–83; PULSE 68–88; RESP 14–18; TEMP 36.2–37.2; O2SAT 97–100; BMI 23.0
[2024-06-30] MEDS: Baclofen 10 MG Tablet 20 MG PO ×2 (05:02→22:39)
[2024-06-30] MEDS: Gabapentin 300 MG Capsule PO (05:02)
[2024-06-30] MEDS: Vibegron 75 MG TABLET PO (05:03)
[2024-06-30] MEDS: Cefazolin 2 GM in Syringe IV ×3 (05:06→22:39)
--- NOTE | 2024-06-30 07:42 | PCM.HP.STD ---
HPI - General General Date of Admission: 06/23/24 HPI Narrative PHUC ZAMORA, is a 48 F who presents with a sacral wound. Here today for closure. She is on antibiotics for Staph infection (deep soft tissue infection) per ID and has been thoroughly washed out with debridement and VAC. Presents today for reconstruction. [facility] Medical History Bladder disease Hx of osteomyelitis Open wound UTI (urinary tract infection) DDD (degenerative disc disease), thoracic Uses wheelchair Self-catheterizes urinary bladder Migraine headache COVID Myelitis History of edema Hypotension Hx of tear of ACL (anterior cruciate ligament) Long-term current use of rituximab Former smoker Multiple sclerosis Osteomyelitis Immobility syndrome (paraplegic) Sacral decubitus ulcer, stage IV Home Medications ?Medication ?Instructions ?Recorded ?Last Taken ?Type gabapentin 300 mg capsule 300 mg PO DAILY NERVE PAIN 06/26/22 06/23/24 History (Neurontin) ascorbic acid (vitamin C) 1,000 mg 1 g PO DAILY SUPPLEMENT 06/15/24 06/22/24 History tablet (C-1000) baclofen 10 mg tablet 20 mg PO BID muscle spasm 06/15/24 06/23/24 History gabapentin 300 mg capsule 600 mg PO QHS NERVE PAIN 06/15/24 06/22/24 History methenamine hippurate 1 gram tablet 1 g PO QHS BLADDER 06/15/24 06/22/24 History sennosides 8.6 mg capsule (senna) 8.6 mg PO DAILY PRN constipation 06/15/24 Unknown History vibegron 75 mg tablet (Gemtesa) 75 mg PO DAILY OAB 06/15/24 06/23/24 History Allergy/AdvReac Type Severity Reaction Status Date / Time doxycycline Allergy Nausea/Vom/ Verified 06/30/24 08:02 Diarrhea Surgical History History of surgery Hx of hysterectomy Social History Smoking Status: Former smoker Vital Signs Vital Signs Vital Signs: 06/29/24 09:17 06/29/24 09:17 06/29/24 09:17 Temperature 96.8 F L Temperature Source Oral Pulse Rate 91 Pulse Strength Normal (2+) Respiratory Rate 16 Respiratory Effort Normal Respiratory Depth Normal Respiratory Pattern Normal Blood Pressure 103/60 Blood Pressure Mean 74 Blood Pressure Source Monitor Blood Pressure Position Semi-Fowlers Blood Pressure Location Right Arm Pulse Ox 98 Oxygen Delivery Method Room Air Room Air 06/29/24 12:14 06/29/24 14:17 06/29/24 16:13 Temperature 97.9 F 98.4 F Temperature Source Oral Oral Pulse Rate 81 88 Pulse Strength Respiratory Rate 16 16 Respiratory Effort Respiratory Depth Respiratory Pattern Blood Pressure 115/60 104/63 Blood Pressure Mean 78 76 Blood Pressure Source Monitor Monitor Blood Pressure Position Semi-Fowlers Supine Blood Pressure Location Right Arm Right Arm Pulse Ox 97 95 Oxygen Delivery Method Room Air Room Air Room Air 06/29/24 22:00 06/29/24 22:08 06/29/24 22:36 Temperature 98.3 F Temperature Source Oral Pulse Rate 92 Pulse Strength Normal (2+) Respiratory Rate 16 Respiratory Effort Normal Non-Labored Respiratory Depth Normal Respiratory Pattern Normal Blood Pressure 120/54 L Blood Pressure Mean 76 Blood Pressure Source Monitor Blood Pressure Position Semi-Fowlers Blood Pressure Location Right Arm Pulse Ox 97 Oxygen Delivery Method Room Air 06/30/24 05:18 06/30/24 07:25 Temperature 97.7 F L 97.6 F L Temperature Source Oral Oral Pulse Rate 80 88 Pulse Strength Respiratory Rate 16 16 Respiratory Effort Respiratory Depth Respiratory Pattern Blood Pressure 92/64 105/73 Blood Pressure Mean 73 83 Blood Pressure Source Monitor Monitor Blood Pressure Position Left Lateral Right Lateral Blood Pressure Location Right Arm Left Forearm Pulse Ox 97 99 Oxygen Delivery Method Room Air Room Air Weight Weight: 146 lb 15.715 oz Body Mass Index (BMI) 23.0 Physical Exam Narrative Sacral wound with irrigating VAC holding suction Const oriented x3 and no apparent distress Resp normal respiratory effort Cardio regular rate Extremity normal to inspection Extremity Narrative: No signs of swelling or DVT Results Lab / Micro Data 06/28/24 06:01 06/28/24 06:01 Assessment & Plan Assessment/Plan (1) Sacral decubitus ulcer, stage IV: PLAN: Plan INTERVAL H&P PLAN, DATE OF SURGERY: We will proceed with surgery today. I talked the patient extensively about the risks of surgery, including bleeding, infection, damage to surrounding structures, surgical site dehiscence and wound formation, need for wound care, need for repeat operations, failure to obtain the desired result, DVT/PE, and the risks of anesthesia including , including stroke (from low blood pressure/ischemia or clot). The benefits and alternatives of this surgery were also discussed. All of their questions were answered, and they agreed to proceed with surgery. She understands plan for flap (fasciocutaneous or musculocutaneous flap from gluteal region) for reconstruction of the defect. Understands that this could fail and we could make wound larger and worse. Understands that the underlying infection could cause wound break down. Agreed to proceed.
[2024-06-30] MEDS: 0.9% Normal Saline (1000mL) 1,000 ML 15 ML IV (08:03)
--- NOTE | 2024-06-30 12:20 | PCM.POST.ANE ---
Anesthesia: Postop Eval I Current Vital Signs Temperature: 97.2 F Pulse Rate: 68 Blood Pressure: 99/54 Respiratory Rate: 14 Pulse Ox: 100 Oxygen Delivery Method: Room Air Assessment Airway patent: Yes Spontaneous unlabored respirations: Yes Mental status: Awake and Calm nausea: No Vomiting: No Anesthesia Complication: No Fluid Hydration Crystalloid volume administer (ml): 550 Total IV fluid infused: 550 Progress Note Anesthesia document: Postop Eval 1 completed: Yes
--- NOTE | 2024-06-30 12:34 | SUR.PHASEI ---
LEFT FOREARM IV INFILTRATED & PAINFUL ON PACU ARRIVAL. PATIENT REFUSED IV RESTART, STATES I WANT TO HYDRATE FIRST, THEN YOU CAN TRY.
--- NOTE | 2024-06-30 13:13 | POSTOPAN2_ITS ---
Anesthesia Postop Eval I Sum Postop Eval Completion status Anesthesia document: Postop Eval 1 completed: Yes Anesthesia Postop Eval I Summary Anesthesia Postop Eval I Summary: Anesthesia Postop Eval I: Assessment Summary Airway patent Yes 06/30/24 12:22 OUT OF SCHOOL HOURS CARE WORKER.DBAK Spontaneous unlabored Yes 06/30/24 12:22 OUT OF SCHOOL HOURS CARE WORKER.DBAK respirations Mental status Awake,Calm 06/30/24 12:22 OUT OF SCHOOL HOURS CARE WORKER.DBAK nausea No 06/30/24 12:22 OUT OF SCHOOL HOURS CARE WORKER.DBAK Vomiting No 06/30/24 12:22 OUT OF SCHOOL HOURS CARE WORKER.DBAK Anesthesia Postop Eval I: Fluid Summary Crystalloid volume administer 550 06/30/24 12:22 OUT OF SCHOOL HOURS CARE WORKER.DBAK (ml) Colloids volume administered ( ml) Blood Product volume administered (ml) Total IV fluid infused 550 06/30/24 12:22 OUT OF SCHOOL HOURS CARE WORKER.DBAK Anesthesia Postop Eval I: Summary Notes Anesthesia Complication No 06/30/24 12:22 OUT OF SCHOOL HOURS CARE WORKER.DBAK Anesthesia Complication Comment: Post-operative progress note Anesthesia: Postop Eval II Evaluation Mental status: Awake Pain Level: 0 nausea: No Vomiting: No
--- NOTE | 2024-06-30 13:13 | PCM.POSTANE2 ---
Anesthesia Postop Eval I Sum Postop Eval Completion status Anesthesia document: Postop Eval 1 completed: Yes Anesthesia Postop Eval I Summary Anesthesia Postop Eval I Summary: Anesthesia Postop Eval I: Assessment Summary Airway patent Yes 06/30/24 12:22 DYE EXPERT.DBAK Spontaneous unlabored Yes 06/30/24 12:22 DYE EXPERT.DBAK respirations Mental status Awake,Calm 06/30/24 12:22 DYE EXPERT.DBAK nausea No 06/30/24 12:22 DYE EXPERT.DBAK Vomiting No 06/30/24 12:22 DYE EXPERT.DBAK Anesthesia Postop Eval I: Fluid Summary Crystalloid volume administer 550 06/30/24 12:22 DYE EXPERT.DBAK (ml) Colloids volume administered ( ml) Blood Product volume administered (ml) Total IV fluid infused 550 06/30/24 12:22 DYE EXPERT.DBAK Anesthesia Postop Eval I: Summary Notes Anesthesia Complication No 06/30/24 12:22 DYE EXPERT.DBAK Anesthesia Complication Comment: Post-operative progress note Anesthesia: Postop Eval II Evaluation Mental status: Awake Pain Level: 0 nausea: No Vomiting: No
--- NOTE | 2024-06-30 13:13 | ANES.CONFIRM ---
Anesthesia: Confirm Documents Multiple Procedures on Account (2) Confirmed Documents: Yes
--- NOTE | 2024-06-30 14:36 | NURSING ---
pt refuses to have iv started at this time. Wanted to drink more flds before attempting it.
[2024-06-30] MEDS: Enoxaparin 40 MG/0.4 ML Syringe SC (15:52)
--- NOTE | 2024-06-30 16:04 | NURSING ---
All documentation by student nurse Anabela Albarran reviewed by lab instructor Lorna Baer BSN, RN.
--- NOTE | 2024-06-30 16:05 | PCM.OPRPT ---
Operative Report (Standard) Operative Information Date of Procedure: 06/30/24 Pre-Operative Diagnosis: Sacral Wound With Exposed Bone Post-Operative Diagnosis: Same Surgery/Procedure Performed: 1) Excision of sacral ulcer in preparation for muscle or myocutaneous flap or skin graft (CPT: 03829) 2) Sacral wound closure with right gluteal myocutaneous flap (right gluteus shila rotation flap) (CPT: 24490) 3) Use of fluorescence angiography for assessment of flap (following dissection) intra-operatively (using SPY machine), (CPT: 73460) axle polisher: Yes Drawer In Stitch Bonding Machine: Rufino Damico Tasks completed by therapy administrative assistant: Closing and Retracting Type of Anesthesia: IV Sedation (with 10 cc of 0.25% marcaine with 1:200,000 epinephrine ) RN Documented Start/Stop Times: Operation Date: 06/30/24 08:55 Case Time Into Pre-Op 06/30/24 07:47 Out of Pre-Op 06/30/24 09:17 Anesthesia Start 06/30/24 09:24 Into Room 06/30/24 09:24 Procedure Start 06/30/24 09:48 Procedure End 06/30/24 11:56 Anesthesia End 06/30/24 12:05 Out of Room 06/30/24 12:05 Into Recovery 06/30/24 12:08 Out of Recovery 06/30/24 12:45 Procedure Start Time: 09:48 Procedure Stop Time: 11:56 Select all DRAINS/GRAFTS/IMPLANTS that apply: Drains (Two 19 Fr Erasto drains ) Drain details: Left drain is deep over the sacrum, right drain is at the flap donor site Estimated Blood Loss: 50 cc Specimen collected: Yes Description of specimen(s) removed: Deep soft tissue and sacral bone cultures Description of surgery: Indications: Rocío Coronado is a delightful 48-year-old female who unfortunately 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 She has been dealing with a chronic stage IV sacral ulcer for over a year. Presents today for reconstruction. She understands the risks, benefits, and alternatives to reconstruction. She understands the risk of flap failure, and creating a larger wound that would unfortunately require more wound care. She would like to proceed. Procedure details: Patient was quickly identified in preoperative holding and taken back to the operating room where she was administered sedation anesthesia. She was prepped and draped in sterile fashion and all proper timeouts were performed. The wound bed appeared relatively healthy after a week of wound VAC therapy following an excision. Further excision of the wound was performed with a 10 blade scalpel and Bovie electrocautery as well as a rongeur, which was used to excise necrotic fat and fibrinous exudate. The wound was irrigated with 3 L normal saline and Irrisept. Bone and deep soft tissue cultures were once again taken. Hemostasis was obtained with Bovie electrocautery. Bovie electrocautery was used to elevate the superior portions of the right gluteus shila muscle off of the sacrum to advance it to obliterate the space over the stage IV sacral wound. A right sided curvilinear incision was then made over the superior aspect of the right gluteus shila muscle and dissection was taken down through the muscle fascia with Bovie electrocautery. The superior gluteal artery perforating vessels were seen piercing the fascia through the gluteus shila muscle just inferior to the incision/fascial incision and were preserved. I initially anticipated a V to Y advancement. A cut back was made to begin a V to Y rotation/advancement (with the plan to complete the V to Y fascial incision but leave the inferior skin bridge so as to prevent fecal contamination of the inferior incision and to improve venous outflow). However, the flap at this point rotated and advanced into position easily and obliterate the space, and therefore the V to Y advancement closure was deferred and it was just turned into a rotation flap as this appeared to be the simplest way to close the wound. There is a small amount of tension from the superior portions of the gluteus shila muscle laterally at the tail of the flap and therefore dissection through the gluteas shila muscle with Bovie electrocautery was carefully performed so as to move the muscle and the flap better into position over the sacrum without tension. Fluorescence angiography was then performed (Spy Machine) with 3 cc of indocyanine green injected through the IV. The flap was well-perfused. The wound was then irrigated with copious amounts of normal saline and hemostasis was obtained with Bovie electrocautery. Two 19 Wolof Erasto drains were placed, 1 over the sacrum and 1 at the donor site. The right gluteus shila myocutaneous rotation flap was then advanced into position and sutured into place. The superior medial muscle was sutured to the contralateral muscle fascia with [id number] 0 PDS sutures to cover the bone at the base of the sacral wound. The fascia was then closed with figure of eight 0 PDS. The fascia laterally was also closed with [id number] 0 PDS sutures. The deep dermis was closed with interrupted 3-0 PDS sutures, followed by 3-0 nylon vertical mattress sutures. The patient tolerated the procedure well. An incisional wound VAC was applied with Adaptic on top of the incision and was holding suction at the end of the case as well as the drains. She was awakened and taken to the PACU in stable condition in the lateral position with care to pressure offload the flaps. Postoperative plan: Continue Ancef as the antibiotic per infectious disease and follow-up new cultures. Continue to pressure offload on a pressure offloading bed and patient will lay on her sides or prone only (no pressure on her backside). Surgical Findings: Healthy wound ready for reconstruction Complications Complications: No Admit VTE Documentation VTE Present on Admission: No VTE Mechan Device Prophylaxis: SCD's VTE Pharm Prophylaxis ordered?: Yes
[2024-06-30] MEDS: 0.9% Saline Lock 10 ML Syringe IV (16:51)
[2024-06-30] MEDS: Acetaminophen 325 MG Tablet 650 MG PO (22:38)
[2024-06-30] MEDS: Gabapentin 300 MG Capsule 600 MG PO (22:38)
[2024-06-30] MEDS: Methenamine Hippurate 1 GM Tablet PO (22:39)
[2024-06-30] MEDS: oxyCODONE 5 MG Tablet PO (22:39)
[2024-07-01 04:47] VITALS: BP 101/58; PULSE 89; RESP 16; TEMP 36.6; O2SAT 97
[2024-07-01] MEDS: Cefazolin 2 GM in Syringe IV ×3 (06:29→23:00)
--- NOTE | 2024-07-01 07:30 | PN.SURG_ITS ---
Subjective Subjective Doing well overall but reports some lower extremity spasms last night. She has been doing well overall with positioning restrictions including laying on her side and prone only. She reports that she is keeping her hips in a neutral position as well and not bending them to the best of her ability. Objective Data Objective Data Vital Signs: Vital Signs Temp Pulse Resp BP Pulse Ox O2 Del Method 97.8 F 89 16 101/58 L 97 Room Air 07/01/24 04:47 07/01/24 04:47 07/01/24 04:47 07/01/24 04:47 07/01/24 04:47 07/01/24 04:47 Oxygen Delivery Method Room Air Weight: 146 lb 15.715 oz Body Mass Index (BMI) 23.0 Intake & Output: Intake and Output for Last 24 Hours 06/29/24 06/30/24 07/01/24 23:59 23:59 23:59 Intake Total 1460 / 1460 160 / 160 370 / 370 Output Total 1000 / 1000 1040 / 1040 520 / 520 Balance 460 / 460 -880 / -880 -150 / -150 Lab / Micro Data 06/28/24 06:01 06/28/24 06:01 Micro: Microbiology 06/23/24 10:12 Wound - Sacral Gram Stain - Final 06/23/24 10:12 Wound - Sacral Wound Culture - Final Staphylococcus hominis hominis 06/23/24 10:12 Wound - Sacral Anaerobic Culture - Final No anaerobic bacteria isolated. 06/23/24 10:10 Wound - Sacral Gram Stain - Final 06/23/24 10:10 Wound - Sacral Wound Culture - Final No growth aerobically. 06/23/24 10:10 Wound - Sacral Anaerobic Culture - Final No anaerobic bacteria isolated. Physical Exam Narrative Sacral and gluteal regions with incisional wound VAC over the incision, holding suction The rotational flap was assessed and has no signs of hyperemia or ischemia. There is no congestion. Appears to be intact and healthy, and adequately pressure offload. Drains are serosanguineous and there is no signs of hematoma. Const oriented x3 and no apparent distress Resp normal respiratory effort Cardio regular rate Extremity normal to inspection Extremity Narrative: No signs of swelling or DVT Assessment & Plan Assessment/Plan (1) Infected decubitus ulcer: (2) Sacral decubitus ulcer, stage IV: (3) Immobility syndrome (paraplegic): PLAN: Plan Annette Lester is a 48-year-old female postop day 1 from right superior gluteal myocutaneous rotation flap for reconstruction of his sacral wound (stage IV) in the setting of 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 Neuro: PO pain meds as needed (gabapentin). Baclofen for spasms. Adding 10 mg baclofen daily as needed in addition to her baseline baclofen to reduce spasming (this is what she does at home when she is having increased spasms). : Self cath as needed, no issues post op. Bladder medicines restarted. Hem: 40 mg Lovenox SubQ daily and SCDs. Patient has been inconsistent with her SCD use as she reports that it is causing problems with her skin. I counseled her on the importance of SCDs and wearing them as much as possible. Abdomen: Patient has had regular bowel movements with normal regiment of patient performing digital stimulation (she has been taking care of this and keeping everything clean, no issues). ID: ID consulted. Deep soft tissue cultures positive for Staphylococcus hominis hominis (pansensitive). Continue Cefazolin per the recommendations and follow- up soft tissue and bone cultures from the day of reconstruction. No signs of osteomyelitis on the pathology analysis. No signs of malignancy on evaluation of the ulcer/skin. Continue pressure offloading on pressure bed. Continue high protein diet. Incisional VAC until Friday, 05 July 2024. Continue drain care every 4 hours Charges/Coding Procedures Integumentary 111xxx-113xx: [id number] Global Visit
[2024-07-01 09:01] VITALS: BP 103/57; PULSE 90; RESP 14; TEMP 36.9; O2SAT 98
[2024-07-01] MEDS: Gabapentin 300 MG Capsule PO (09:04)
[2024-07-01] MEDS: Vibegron 75 MG TABLET PO (09:04)
[2024-07-01] MEDS: Enoxaparin 40 MG/0.4 ML Syringe SC (09:04)
[2024-07-01] MEDS: Ascorbic Acid 500 MG Tablet 1000 MG PO (09:04)
[2024-07-01] MEDS: Pantoprazole Sodium 40 MG Tablet PO (09:04)
[2024-07-01] MEDS: Baclofen 10 MG Tablet 20 MG PO ×2 (09:04→23:02)
--- NOTE | 2024-07-01 10:56 | PCM.PN.ID ---
Physical Exam Narrative Feeling ok s/p OR, no fever, no nausea Const alert and no apparent distress General Appearance: cooperative Resp normal air movement and clear to auscultation bilaterally Cardio regular rate and regular rhythm GI soft to palpation, non-tender and non-distended Skin Skin Narrative: reviewed photos ID ID: Route of nutrition/ use of supplements: [] Nutritional Intake: [] IV Site: [] Luke Catheter: [] Assessment & Plan Assessment/Plan (1) Infected decubitus ulcer: PLAN: OR 06/23/[address] Villalta for I&D, cx with MS-S hominis. Cont with cefazolin. Path neg for osteo. Flap done 06/30/24. Plan on short course abx, likely finish 07/05/24. Will follow.
--- NOTE | 2024-07-01 12:02 | CASEMGMT ---
Addendum entered by Wendie Hankins 07/02/24 13:02: Updates sent to [facility]. They will submit for precert today. Wendie Hankins DC Planning Asst. Addendum entered by Wendie Hankins 07/01/24 14:46: [facility] will hold off of precert since pt will not discharge until Friday. Wendie Hankins DC Planning Asst. Original Note: Updates sent to [facility] with note asking that precert be started. Wendie Hankins DC Planning Asst.
--- NOTE | 2024-07-01 12:50 | CASEMGMT ---
Social Work- SW collaborated with wound care nurse and physician regarding pt discharge planning. SW updated [facility]. Pt will remain until Friday when wound vac is removed. Pt will need pressure offloading mattress at discharge and will need NEIL drain care per physician. SNF updated. SW remains available to follow. Plan: [facility]; pending precert when medically ready MALACHI Whipple.
[2024-07-01] MEDS: 0.9% Saline Lock 10 ML Syringe IV ×2 (14:37→23:02)
[2024-07-01 14:55] VITALS: BP 104/59; PULSE 78; RESP 14; TEMP 36.7; O2SAT 100
[2024-07-01 22:50] VITALS: BP 109/58; PULSE 84; RESP 18; TEMP 37.2; O2SAT 96
[2024-07-01] MEDS: Acetaminophen 325 MG Tablet 650 MG PO (23:00)
[2024-07-01] MEDS: Gabapentin 300 MG Capsule 600 MG PO (23:00)
[2024-07-01] MEDS: Methenamine Hippurate 1 GM Tablet PO (23:02)
[2024-07-02 05:25] VITALS: BP 101/66; PULSE 78; RESP 16; TEMP 37; O2SAT 98
[2024-07-02] MEDS: 0.9% Saline Lock 10 ML Syringe IV ×3 (05:41→22:51)
[2024-07-02] MEDS: Cefazolin 2 GM in Syringe IV ×3 (05:41→22:51)
--- NOTE | 2024-07-02 08:34 | VDLE_ITS ---
Reason For Study: Swelling RIGHT LEFT GSV is normal. GSV is normal. CFV is compressible, spontaneous, phasic, CFV is compressible, spontaneous, phasic, competent and demonstrates normal competent, and demonstrates normal augmentation. augmentation. FV is compressible, spontaneous, phasic, FV is compressible, spontaneous, phasic, competent and demonstrates normal competent and demonstrates normal augmentation. augmentation. POP V is compressible, spontaneous, phasic, POP V is compressible, spontaneous, phasic, competent and demonstrates normal competent and demonstrates normal augmentation. augmentation. T/P Trunk is compressible. T/P Trunk is compressible. PTV is compressible. PTV is compressible. RT PerV is compressible. LT PerV is compressible. Procedure This is a venous duplex using B-mode, color flow and spectral Doppler. Exam performed portable in patient room. The study was technically difficult. VL/Venous Duplex US - Jarret Extrem Interpretation Summary Deep veins of the lower extremities are bilaterally patent and compressible seg mentally. There is no evidence of deep vein thrombosis on either side. Valvular competence appears in tact within the proximal deep venous systems bilaterally. The great saphenous veins appear bila terally patent and compressible segmentally. Ordering Physician: Joan Fowler Performed By: Aminata Kohler RVT and Student
[2024-07-02] MEDS: Pantoprazole Sodium 40 MG Tablet PO (09:05)
[2024-07-02] MEDS: Baclofen 10 MG Tablet 20 MG PO ×2 (09:06→22:50)
[2024-07-02] MEDS: Ascorbic Acid 500 MG Tablet 1000 MG PO (09:06)
[2024-07-02] MEDS: Enoxaparin 40 MG/0.4 ML Syringe SC (09:06)
[2024-07-02] MEDS: Vibegron 75 MG TABLET PO (09:07)
--- NOTE | 2024-07-02 09:08 | CASEMGMT ---
LIZETH met with patient per her request. LIZETH introduced self and role at [facility]. Patient asked for clarification on where and when she was going. LIZETH told patient it was LIZETH's understanding that she will be going to [facility] possibly Friday. Patient thanked LIZETH for the information. [facility] will start pre-cert today in the even patient is ready Friday. Plan: [facility] pending patient being medically ready and insurance approving patient. Margarita CADET
[2024-07-02] MEDS: Gabapentin 300 MG Capsule PO (09:12)
[2024-07-02 09:14] VITALS: PULSE 90
[2024-07-02 09:20] VITALS: BP 110/67; PULSE 84; RESP 20; TEMP 36.6; O2SAT 99
--- NOTE | 2024-07-02 10:00 | PN.SURG_ITS ---
Subjective Subjective Doing well with pressure offloading. Had BM. No issues overall. Pain controlled. Objective Data Objective Data Vital Signs: Vital Signs Temp Pulse Resp BP Pulse Ox O2 Del Method 97.8 F 84 20 H 110/67 99 Room Air 07/02/24 09:20 07/02/24 09:20 07/02/24 09:20 07/02/24 09:20 07/02/24 09:20 07/02/24 09:20 Oxygen Delivery Method Room Air Weight: 146 lb 15.715 oz Body Mass Index (BMI) 23.0 Intake & Output: Intake and Output for Last 24 Hours 06/30/24 07/01/24 07/02/24 23:59 23:59 23:59 Intake Total 160 / 160 410 / 410 570 / 570 Output Total 1040 / 1040 1875 / 1875 Balance -880 / -880 -1465 / -1465 557 / 557 Lab / Micro Data 06/28/24 06:01 06/28/24 06:01 Micro: Microbiology 06/30/24 13:53 Wound - Sacral Gram Stain - Final 06/30/24 13:53 Wound - Sacral Wound Culture - Preliminary No growth-Final to follow 06/30/24 13:53 Wound - Sacral Gram Stain - Final 06/30/24 13:53 Wound - Sacral Wound Culture - Preliminary No growth-Final to follow 06/23/24 10:12 Wound - Sacral Gram Stain - Final 06/23/24 10:12 Wound - Sacral Wound Culture - Final Staphylococcus hominis hominis 06/23/24 10:12 Wound - Sacral Anaerobic Culture - Final No anaerobic bacteria isolated. 06/23/24 10:10 Wound - Sacral Gram Stain - Final 06/23/24 10:10 Wound - Sacral Wound Culture - Final No growth aerobically. 06/23/24 10:10 Wound - Sacral Anaerobic Culture - Final No anaerobic bacteria isolated. Physical Exam Narrative Sacral and gluteal regions with incisional wound VAC over the incision, holding suction The rotational flap was assessed and has no signs of hyperemia or ischemia. There is no congestion. Appears to be intact and healthy, and adequately pressure offload. Drains are serosanguineous and there is no signs of hematoma. Const oriented x3 and no apparent distress Resp normal respiratory effort Cardio regular rate Extremity normal to inspection Extremity Narrative: No signs of swelling or DVT Assessment & Plan Assessment/Plan (1) Sacral decubitus ulcer, stage IV: (2) Infected decubitus ulcer: (3) Immobility syndrome (paraplegic): PLAN: Plan Annette Lester is a 48-year-old female postop day 2 from right superior gluteal myocutaneous rotation flap for reconstruction of his sacral wound (stage IV) in the setting of 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 Neuro: PO pain meds as needed (gabapentin). Baclofen for spasms. Adding 10 mg baclofen daily as needed in addition to her baseline baclofen to reduce spasming (this is what she does at home when she is having increased spasms). : Self cath as needed, no issues post op. Bladder medicines restarted. Hem: 40 mg Lovenox SubQ daily and SCDs. Patient has been inconsistent with her SCD use as she reports that it is causing problems with her skin. I counseled her on the importance of SCDs and wearing them as much as possible. Lower Extremity Venous duplex US today to check for DVT per hematology recommendations (to be done towards the end of the hospital stay). Abdomen: Patient has had regular bowel movements with normal regiment of patient performing digital stimulation (she has been taking care of this and keeping everything clean, no issues). ID: ID consulted. Deep soft tissue cultures positive for Staphylococcus hominis hominis (pansensitive). Continue Cefazolin per the recommendations and follow- up soft tissue and bone cultures from the day of reconstruction. No signs of osteomyelitis on the pathology analysis. No signs of malignancy on evaluation of the ulcer/skin. Continue pressure offloading on pressure bed. Continue high protein diet. Incisional VAC until Friday, 05 July 2024. Continue drain care every 4 hours Charges/Coding Procedures Integumentary 111xxx-113xx: [id number] Global Visit
[2024-07-02 13:47] VITALS: BP 95/61; PULSE 98; RESP 18; TEMP 37.1; O2SAT 98
[2024-07-02 22:45] VITALS: BP 107/70; PULSE 78; RESP 16; TEMP 36.6; O2SAT 98
[2024-07-02] MEDS: Gabapentin 300 MG Capsule 600 MG PO (22:49)
[2024-07-02] MEDS: Acetaminophen 325 MG Tablet 650 MG PO (22:50)
[2024-07-02] MEDS: Methenamine Hippurate 1 GM Tablet PO (22:51)
[2024-07-03 04:00] VITALS: BP 101/55; PULSE 86; RESP 16; TEMP 36.6; O2SAT 98
[2024-07-03] MEDS: 0.9% Saline Lock 10 ML Syringe IV ×3 (05:18→22:18)
[2024-07-03] MEDS: Cefazolin 2 GM in Syringe IV ×3 (05:18→22:17)
--- NOTE | 2024-07-03 06:59 | PN_ITS ---
Subjective Subjective Doing well overall. 1250 on IS during rounds this morning. Pressure offloading. Normal BM regimen and doing self caths for bladder. Objective Data Objective Data Vital Signs: Vital Signs Temp Pulse Resp BP Pulse Ox O2 Del Method 97.9 F 86 16 101/55 L 98 Room Air 07/03/24 04:00 07/03/24 04:00 07/03/24 04:00 07/03/24 04:00 07/03/24 04:00 07/03/24 04:00 Oxygen Delivery Method Room Air Weight: 146 lb 15.715 oz Body Mass Index (BMI) 23.0 Intake & Output: Intake and Output for Last 24 Hours 07/01/24 07/02/24 07/03/24 23:59 23:59 23:59 Intake Total 410 / 410 610 / 610 20 Output Total 1875 / 1875 816 / 1236 1333 / 1333 Balance -1465 / -1465 -206 / -626 -1313 / -1313 Lab / Micro Data 06/28/24 06:01 06/28/24 06:01 Micro: Microbiology 06/30/24 13:53 Wound - Sacral Gram Stain - Final 06/30/24 13:53 Wound - Sacral Wound Culture - Preliminary No growth-Final to follow 06/30/24 13:53 Wound - Sacral Anaerobic Culture - Preliminary No growth in 48 hours. 06/30/24 13:53 Wound - Sacral Gram Stain - Final 06/30/24 13:53 Wound - Sacral Wound Culture - Preliminary No growth-Final to follow 06/30/24 13:53 Wound - Sacral Anaerobic Culture - Preliminary No growth in 48 hours. 06/23/24 10:12 Wound - Sacral Gram Stain - Final 06/23/24 10:12 Wound - Sacral Wound Culture - Final Staphylococcus hominis hominis 06/23/24 10:12 Wound - Sacral Anaerobic Culture - Final No anaerobic bacteria isolated. 06/23/24 10:10 Wound - Sacral Gram Stain - Final 06/23/24 10:10 Wound - Sacral Wound Culture - Final No growth aerobically. 06/23/24 10:10 Wound - Sacral Anaerobic Culture - Final No anaerobic bacteria isolated. Radiography Diagnostic Testing: Radiology Impression Venous Doppler Study 07/02/24 08:34 Interpretation Summary Deep veins of the lower extremities are bilaterally patent and compressible segmentally. There is no evidence of deep vein thrombosis on either side. Valvular competence appears intact within the proximal deep venous systems bilaterally. The great saphenous veins appear bilaterally patent and compressible segmentally. Ordering Physician: Joan Fowler Performed By: Aminata Kohler RVT and Student Physical Exam Narrative Sacral and gluteal regions with incisional wound VAC over the incision, holding suction The rotational flap was assessed and has no signs of hyperemia or ischemia. There is no congestion. Appears to be intact and healthy, and adequately pressure offload. Drains are serosanguineous and there is no signs of purulence Const oriented x3 and no apparent distress Resp normal respiratory effort Cardio regular rate Extremity normal to inspection Extremity Narrative: No signs of swelling or DVT Assessment & Plan Assessment/Plan (1) Sacral decubitus ulcer, stage IV: (2) Infected decubitus ulcer: (3) Immobility syndrome (paraplegic): PLAN: Plan Annette Lester is a 48-year-old female postop day 3 from right superior gluteal myocutaneous rotation flap for reconstruction of his sacral wound (stage IV) in the setting of 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 Neuro: PO pain meds as needed (gabapentin). Baclofen for spasms. Adding 10 mg baclofen daily as needed in addition to her baseline baclofen to reduce spasming (this is what she does at home when she is having increased spasms). : Self cath as needed, no issues post op. Bladder medicines restarted. Hem: 40 mg Lovenox SubQ daily and SCDs. Patient has been inconsistent with her SCD use as she reports that it is causing problems with her skin. I counseled her on the importance of SCDs and wearing them as much as possible. Post op L ower Extremity Venous duplex on 02 Jul 2024 was without signs of DVT. Abdomen: Patient has had regular bowel movements with normal regiment of patient performing digital stimulation (she has been taking care of this and keeping everything clean, no issues). ID: ID consulted. Deep soft tissue cultures positive for Staphylococcus hominis hominis (pansensitive). Continue Cefazolin per the recommendations and follow- up soft tissue and bone cultures from the day of reconstruction. ID recommencing antibiotics until 05 Jul 2024 as of now. No signs of osteomyelitis on the pathology analysis. No signs of malignancy on evaluation of the ulcer/skin. Continue pressure offloading on pressure bed. Continue high protein diet. Incisional VAC until Friday, 05 July 2024. Continue drain care every 4 hours Charges/Coding Procedures Integumentary 111xxx-113xx: [id number] Global Visit
[2024-07-03 10:07] VITALS: BP 107/58; PULSE 97; RESP 16; TEMP 36.5; O2SAT 100
[2024-07-03] MEDS: Gabapentin 300 MG Capsule PO (10:11)
[2024-07-03] MEDS: Baclofen 10 MG Tablet 20 MG PO ×2 (10:12→22:17)
[2024-07-03] MEDS: Ascorbic Acid 500 MG Tablet 1000 MG PO (10:12)
[2024-07-03] MEDS: Vibegron 75 MG TABLET PO (10:12)
[2024-07-03] MEDS: Enoxaparin 40 MG/0.4 ML Syringe SC (10:13)
[2024-07-03] MEDS: Pantoprazole Sodium 40 MG Tablet PO (10:13)
[2024-07-03 17:16] VITALS: BP 108/67; PULSE 77; RESP 16; TEMP 36.8; O2SAT 99
[2024-07-03] MEDS: Baclofen 10 MG Tablet PO (17:25)
[2024-07-03 22:12] VITALS: BP 105/67; PULSE 90; RESP 16; TEMP 36.5; O2SAT 96
[2024-07-03] MEDS: Methenamine Hippurate 1 GM Tablet PO (22:17)
[2024-07-03] MEDS: Gabapentin 300 MG Capsule 600 MG PO (22:17)
[2024-07-04 03:50] VITALS: BP 102/60; PULSE 92; RESP 16; TEMP 36.7; O2SAT 97
[2024-07-04 05:34] VITALS: BP 104/70; PULSE 73; RESP 14; TEMP 37.2; O2SAT 99
[2024-07-04] MEDS: 0.9% Saline Lock 10 ML Syringe IV ×2 (05:37→22:30)
[2024-07-04] MEDS: Cefazolin 2 GM in Syringe IV ×3 (05:37→22:28)
[2024-07-04] MEDS: Vibegron 75 MG TABLET PO (09:35)
[2024-07-04] MEDS: Enoxaparin 40 MG/0.4 ML Syringe SC (09:35)
[2024-07-04] MEDS: Baclofen 10 MG Tablet 20 MG PO ×2 (09:35→22:28)
[2024-07-04] MEDS: Pantoprazole Sodium 40 MG Tablet PO (09:36)
[2024-07-04] MEDS: Ascorbic Acid 500 MG Tablet 1000 MG PO (09:36)
[2024-07-04] MEDS: Gabapentin 300 MG Capsule PO (09:41)
[2024-07-04 09:43] VITALS: BP 119/63; PULSE 105; RESP 18; TEMP 36.5; O2SAT 99
--- NOTE | 2024-07-04 10:36 | PN.SURG_ITS ---
Subjective Subjective Doing well. Offloading appropriately. Does not want SCDs at this time (discussed risks and benefits) Objective Data Objective Data Vital Signs: Vital Signs Temp Pulse Resp BP Pulse Ox O2 Del Method 97.7 F L 105 H 18 119/63 99 Room Air 07/04/24 09:43 07/04/24 09:43 07/04/24 09:43 07/04/24 09:43 07/04/24 09:43 07/04/24 09:43 Oxygen Delivery Method Room Air Weight: 146 lb 15.715 oz Body Mass Index (BMI) 23.0 Intake & Output: Intake and Output for Last 24 Hours 07/02/24 07/03/24 07/04/24 23:59 23:59 23:59 Intake Total 610 / 610 760 / 1260 820 / 820 Output Total 816 / 1236 1591 / 1981 850 / 850 Balance -206 / -626 -831 / -721 -30 / -30 Lab / Micro Data 06/28/24 06:01 06/28/24 06:01 Micro: Microbiology 06/30/24 13:53 Wound - Sacral Gram Stain - Final 06/30/24 13:53 Wound - Sacral Wound Culture - Preliminary 06/30/24 13:53 Wound - Sacral Anaerobic Culture - Preliminary No growth in 48 hours. 06/30/24 13:53 Wound - Sacral Gram Stain - Final 06/30/24 13:53 Wound - Sacral Wound Culture - Final No growth aerobically. 06/30/24 13:53 Wound - Sacral Anaerobic Culture - Preliminary No growth in 48 hours. 06/23/24 10:12 Wound - Sacral Gram Stain - Final 06/23/24 10:12 Wound - Sacral Wound Culture - Final Staphylococcus hominis hominis 06/23/24 10:12 Wound - Sacral Anaerobic Culture - Final No anaerobic bacteria isolated. 06/23/24 10:10 Wound - Sacral Gram Stain - Final 06/23/24 10:10 Wound - Sacral Wound Culture - Final No growth aerobically. 06/23/24 10:10 Wound - Sacral Anaerobic Culture - Final No anaerobic bacteria isolated. Physical Exam Narrative Sacral and gluteal regions with incisional wound VAC over the incision, holding suction The rotational flap was assessed and has no signs of hyperemia or ischemia. There is no congestion. Appears to be intact and healthy, and adequately pressure offload. 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 Neuro: PO pain meds as needed (gabapentin). Baclofen for spasms. Adding 10 mg baclofen daily as needed in addition to her baseline baclofen to reduce spasming (this is what she does at home when she is having increased spasms). : Self cath as needed, no issues post op. Bladder medicines restarted. Hem: 40 mg Lovenox SubQ daily and SCDs. Patient has been inconsistent with her SCD use as she reports that it is causing problems with her skin. I counseled her on the importance of SCDs and wearing them as much as possible. Post op L ower Extremity Venous duplex on 02 Jul 2024 was without signs of DVT. Abdomen: Patient has had regular bowel movements with normal regiment of patient performing digital stimulation (she has been taking care of this and keeping everything clean, no issues). ID: ID consulted. Deep soft tissue cultures positive for Staphylococcus hominis hominis (pansensitive). Continue Cefazolin per the recommendations and follow- up soft tissue and bone cultures from the day of reconstruction. ID recommencing antibiotics until 05 Jul 2024 as of now. No signs of osteomyelitis on the pathology analysis. No signs of malignancy on evaluation of the ulcer/skin. Continue pressure offloading on pressure bed. Continue high protein diet. Incisional VAC until Friday, 05 July 2024 (Tomorrow). Continue drain care every 4 hours Charges/Coding Procedures Integumentary [id number]: [id number] Global Visit
[2024-07-04 15:07] VITALS: BP 114/68; PULSE 82; RESP 16; TEMP 36.5; O2SAT 100
[2024-07-04 22:13] VITALS: BP 103/66; PULSE 98; RESP 14; TEMP 36.8; O2SAT 98
[2024-07-04] MEDS: Gabapentin 300 MG Capsule 600 MG PO (22:27)
[2024-07-04] MEDS: Methenamine Hippurate 1 GM Tablet PO (22:28)
[2024-07-05 04:18] VITALS: BP 105/64; PULSE 88; RESP 14; TEMP 37.1; O2SAT 98
[2024-07-05] MEDS: Cefazolin 2 GM in Syringe IV (06:29)
[2024-07-05] MEDS: 0.9% Saline Lock 10 ML Syringe IV (06:31)
[2024-07-05] MEDS: Acetaminophen 325 MG Tablet 650 MG PO (06:31)
[2024-07-05] MEDS: Vibegron 75 MG TABLET PO (08:21)
[2024-07-05] MEDS: Enoxaparin 40 MG/0.4 ML Syringe SC (08:21)
[2024-07-05] MEDS: Baclofen 10 MG Tablet 20 MG PO ×2 (08:21→21:19)
[2024-07-05] MEDS: Ascorbic Acid 500 MG Tablet 1000 MG PO (08:21)
[2024-07-05] MEDS: Pantoprazole Sodium 40 MG Tablet PO (08:21)
[2024-07-05] MEDS: Gabapentin 300 MG Capsule PO (08:23)
--- NOTE | 2024-07-05 08:47 | PN.SURG_ITS ---
Subjective Subjective Doing well. Offloading appropriately. Normal bowel movements and has been doing urinary catheters on her own. Objective Data Objective Data Vital Signs: Vital Signs Temp Pulse Resp BP Pulse Ox O2 Del Method 98.7 F 88 14 105/64 98 Room Air 07/05/24 04:18 07/05/24 04:18 07/05/24 04:18 07/05/24 04:18 07/05/24 04:18 07/05/24 04:18 Oxygen Delivery Method Room Air Weight: 146 lb 15.715 oz Body Mass Index (BMI) 23.0 Intake & Output: Intake and Output for Last 24 Hours 07/03/24 07/04/24 07/05/24 23:59 23:59 23:59 Intake Total 760 / 1260 860 / 860 1020 / 1020 Output Total 1591 / 1981 1525 / 1525 Balance -831 / -721 -665 / -665 1020 / 1020 Lab / Micro Data 06/28/24 06:01 06/28/24 06:01 Micro: Microbiology 06/30/24 13:53 Wound - Sacral Gram Stain - Final 06/30/24 13:53 Wound - Sacral Wound Culture - Final No growth aerobically. 06/30/24 13:53 Wound - Sacral Anaerobic Culture - Preliminary No growth in 48 hours. 06/30/24 13:53 Wound - Sacral Gram Stain - Final 06/30/24 13:53 Wound - Sacral Wound Culture - Final No growth aerobically. 06/30/24 13:53 Wound - Sacral Anaerobic Culture - Preliminary No growth in 48 hours. 06/23/24 10:12 Wound - Sacral Gram Stain - Final 06/23/24 10:12 Wound - Sacral Wound Culture - Final Staphylococcus hominis hominis 06/23/24 10:12 Wound - Sacral Anaerobic Culture - Final No anaerobic bacteria isolated. 06/23/24 10:10 Wound - Sacral Gram Stain - Final 06/23/24 10:10 Wound - Sacral Wound Culture - Final No growth aerobically. 06/23/24 10:10 Wound - Sacral Anaerobic Culture - Final No anaerobic bacteria isolated. Physical Exam Narrative Sacral and gluteal regions with incisional wound VAC over the incision, holding suction. VAC was removed at bedside today The rotational flap was assessed and has no signs of hyperemia or ischemia. There is no congestion. Appears to be intact and healthy, and adequately pressure offload. The incision line is intact. No signs of infection Drains are serosanguineous and there is no signs of purulence Const oriented x3 and no apparent distress Resp normal respiratory effort Cardio regular rate Extremity normal to inspection Extremity Narrative: No signs of swelling or DVT Legs have normal appearance Assessment & Plan Assessment/Plan (1) Sacral decubitus ulcer, stage IV: (2) Infected decubitus ulcer: (3) Immobility syndrome (paraplegic): PLAN: Plan Annette Lester is a 48-year-old female postop day 5 from right superior gluteal myocutaneous rotation flap for reconstruction of his sacral wound (stage IV) in the setting of 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 Neuro: PO pain meds as needed (gabapentin). Baclofen for spasms. Adding 10 mg baclofen daily as needed in addition to her baseline baclofen to reduce spasms (this is what she does at home when she is having increased spasms). : Self cath as needed, no issues post op. Bladder medicines restarted. Hem: 40 mg Lovenox SubQ daily and SCDs. Patient has been inconsistent with her SCD use as she reports that it is causing problems with her skin. I counseled her on the importance of SCDs and wearing them as much as possible. Post op L saeed Extremity Venous duplex on 02 Jul 2024 was without signs of DVT. Abdomen: Patient has had regular bowel movements with normal regiment of patient performing digital stimulation (she has been taking care of this and keeping everything clean, no issues). ID: ID consulted. Deep soft tissue cultures positive for Staphylococcus hominis hominis (pansensitive). Continue Cefazolin per the recommendations and follow- up soft tissue and bone cultures from the day of reconstruction, but otherwise antibiotics end later today per infectious disease. No signs of osteomyelitis on the pathology analysis. No signs of malignancy on evaluation of the ulcer/skin. Continue pressure offloading on pressure bed. Continue high protein diet. Incisional VAC removed Dry dressing only Continue drain care every 4 hours Charges/Coding Procedures Integumentary [id number]: [id number] Global Visit
[2024-07-05 09:31] VITALS: BP 111/68; PULSE 87; RESP 16; TEMP 36.4; O2SAT 100
[2024-07-05 11:28] VITALS: BP 109/64; PULSE 110; RESP 16; TEMP 36.9; O2SAT 98
--- NOTE | 2024-07-05 14:30 | CASEMGMT ---
Addendum entered by Cheri Hayes 07/05/24 15:49: Social Work- SW received notice that pt has precert. [employer] surgeon notified. Bedside nurse notified that pt needs a COVID swab. Pt notified. DCA notified. Transport forms and 7000 completed. Final arrangements and notifications to family per DCA. Plan: [facility]; skilled level of care MALACHI Whipple Original Note: Social Work- SW met with pt provide updates on precert status. Precert remains pending. SW remains available to follow. Plan: [facility]; skilled level of care MALACHI Whipple
--- NOTE | 2024-07-05 14:43 | CASEMGMT ---
[facility] has obtained auth to admit. Wendie Hankins DC Planning Asst.
--- NOTE | 2024-07-05 14:58 | TREXTCAR_ITS ---
Diet Diet Order/Speech Therapy: 06/30/24 13:44 Diet: Regular - General Type of Dietary Supplement:: Flavio Diet Comments: fruitpunch Flavio w/break & dinner. Beneprotein TID. Add 1oz protein to meal Routine Orders/Code Status Code Status: Full Code DC O2, CPAP, BIPAP needs Home O2 Discharge instructions: No Wound(s) sacrum: Wound Type: Surgical Incision RIGHT HIP: Wound Type: Surgical Incision Dressing Change: 2 bobbi drains to be stripped every 4 hours Suggestions for Active Care Positions to Avoid: sitting/laying on back Hours to sit in a chair: 0 Times a day to sit in chair: 0 Therapies Physical Therapy: Eval and Treat (Upper body ROM/strengthening. Avoid laying on back or sitting on flap) Occupational Therapy: Eval and Treat Problem/Diagnosis (1) Sacral decubitus ulcer, stage IV: Status: Chronic Code(s): L89.154 - Pressure ulcer of sacral region, stage 4 (2) Infected decubitus ulcer: Status: Acute Code(s): L89.90 - Pressure ulcer of unspecified site, unspecified stage; L08.9 - Local infection of the skin and subcutaneous tissue, unspecified (3) Immobility syndrome (paraplegic): Status: Chronic Code(s): M62.3 - Immobility syndrome (paraplegic) Comment: CHEST DOWN PARAPLEGIC/PRN TONE/ABLE TO USE ARMS Plan Annette Lester is a 48-year-old female postop day 5 from right superior gluteal myocutaneous rotation flap for reconstruction of his sacral wound (stage IV) in the setting of 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 Neuro: PO pain meds as needed (gabapentin). Baclofen for spasms. Adding 10 mg baclofen daily as needed in addition to her baseline baclofen to reduce spasms (this is what she does at home when she is having increased spasms). : Self cath as needed, no issues post op. Bladder medicines restarted. Hem: 40 mg Lovenox SubQ daily (until 07/14) and SCDs. Patient has been inconsistent with her SCD use as she reports that it is causing problems with her skin. I counseled her on the importance of SCDs and wearing them as much as possible. Post op Lower Extremity Venous duplex on 02 Jul 2024 was without signs of DVT. Abdomen: Patient has had regular bowel movements with normal regiment of patient performing digital stimulation (she has been taking care of this and keeping everything clean, no issues). ID: ID consulted. Deep soft tissue cultures positive for Staphylococcus hominis hominis (pansensitive). Continue Cefazolin per the recommendations and follow- up soft tissue and bone cultures from the day of reconstruction, but otherwise antibiotics end later today per infectious disease. No signs of osteomyelitis on the pathology analysis. No signs of malignancy on evaluation of the ulcer/skin. Continue pressure offloading on pressure bed. Continue high protein diet. Incisional VAC removed Dry dressing only Continue drain care every 4 hours Allergies/Procedures Done in Hospital Allergies doxycycline Allergy (Verified 06/30/24 08:02) Nausea/Vom/Diarrhea Type of Care/Length of Stay Estimated LOS: Convalescent Care Less Than 30 days Type of Care Needed: Skilled Rehab Potential: Good Prognosis: Good Additional Orders/Day of Discharge H&P will serve as current which was dated: 06/30/24 Day of Discharge: 07/05/24 Dietary and Speech Recommendations Dietitian Recommendations/Changes: Continue Regular diet w/ additional 1-2oz protein with meals. Continue Fruit flavored Flavio BID with meals to promote wound healing. Continue Beneprotein TID with meals for additional protein to aid in wound healing. Follow Up Care Please Follow Up With: Lewis Villalta MD When: Friday07/12/24 at [facility] [phone], call for appointment Discharge Plan Admission Admit Date/Time: 06/23/24 10:31 Attending Provider: Lewis Villalta Primary Care Provider: Adam Cross Consulting Providers: Lewis Calderon Discharge Orders/Prescriptions Prescriptions: New baclofen 10 mg tablet 10 mg PO DAILY PRN (Reason: muscle spasm) 30 Days Qty: 30 0RF Rx Instructions: 10 mg daily as needed in addition to her baseline dose for muscle spasm enoxaparin [Lovenox] 40 mg/0.4 mL syringe 40 mg subcut DAILY 9 Days Qty: 3.6 0RF acetaminophen [Tylenol Extra Strength] 500 mg tablet 500 - 1,000 mg PO Q6H PRN (Reason: fever or pain) 30 Days Qty: 60 1RF omeprazole 20 mg capsule,delayed release(DR/EC) 20 mg PO DAILY 30 Days Qty: 30 1RF Continued gabapentin [Neurontin] 300 mg Capsule 300 mg PO DAILY Gemtesa 75 mg tablet 75 mg PO DAILY gabapentin 300 mg capsule 600 mg PO QHS methenamine hippurate 1 gram tablet 1 g PO QHS ascorbic acid (vitamin C) [C-1000] 1,000 mg tablet 1 g PO DAILY senna 8.6 mg capsule 8.6 mg PO DAILY PRN (Reason: constipation) baclofen 10 mg tablet 20 mg PO BID Referrals / Follow Up: Adam Cross MD [Primary Care Provider] - Disposition Disposition (needs filled in before D/C Order can be placed): [facility]
--- NOTE | 2024-07-05 15:00 | WOUNDNOTE ---
Had been in this am to see patient with Dr Villalta. see progress note and wound photos. muscle flap looks very healthy. drains stripped. dry dressing was applied.
--- NOTE | 2024-07-05 15:32 | DS.PCM_ITS ---
Providers Date of Admission: 06/23/24 Date of Discharge: 07/05/24 Primary Care Physician: Dr. 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 Routine Comment: Reason for Consult:: sacral wound 06/28/24 11:41 Consult: Infectious Disease Routine Consulting Provider: Lewis Calderon Reason for Consult: Sacral wound EMERGENT Consult: No MD Notified: Yes Date Notified: 06/28/24 Time Notified: 11:41 Method of Notification: Verbal Reason For Visit: Excision sacral Wound w/ Flap Reconstruction, irr Diagnosis Discharge Diagnosis (1) Sacral decubitus ulcer, stage IV: Status: Chronic Code(s): L89.154 - Pressure ulcer of sacral region, stage 4 (2) Infected decubitus ulcer: Status: Acute Code(s): L89.90 - Pressure ulcer of unspecified site, unspecified stage; L08.9 - Local infection of the skin and subcutaneous tissue, unspecified (3) Immobility syndrome (paraplegic): Status: Chronic Code(s): M62.3 - Immobility syndrome (paraplegic) Plan Annette Lester is a 48-year-old female postop day 5 from right superior gluteal myocutaneous rotation flap for reconstruction of his sacral wound (stage IV) in the setting of 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 Neuro: PO pain meds as needed (gabapentin). Baclofen for spasms. Adding 10 mg baclofen daily as needed in addition to her baseline baclofen to reduce spasms (this is what she does at home when she is having increased spasms). : Self cath as needed, no issues post op. Bladder medicines restarted. Hem: 40 mg Lovenox SubQ daily (until 07/14) and SCDs. Patient has been inconsistent with her SCD use as she reports that it is causing problems with her skin. I counseled her on the importance of SCDs and wearing them as much as possible. Post op Lower Extremity Venous duplex on 02 Jul 2024 was without signs of DVT. Abdomen: Patient has had regular bowel movements with normal regiment of patient performing digital stimulation (she has been taking care of this and keeping everything clean, no issues). ID: ID consulted. Deep soft tissue cultures positive for Staphylococcus hominis hominis (pansensitive). Continue Cefazolin per the recommendations and follow- up soft tissue and bone cultures from the day of reconstruction, but otherwise antibiotics end later today per infectious disease. No signs of osteomyelitis on the pathology analysis. No signs of malignancy on evaluation of the ulcer/skin. Continue pressure offloading on pressure bed. Continue high protein diet. Incisional VAC removed Dry dressing only Continue drain care every 4 hours Medications at Discharge Home Medications gabapentin 300 mg capsule (Neurontin) 300 mg PO DAILY NERVE PAIN 06/26/22 ascorbic acid (vitamin C) 1,000 mg tablet (C-1000) 1 g PO DAILY SUPPLEMENT 06/15/24 baclofen 10 mg tablet 20 mg PO BID muscle spasm 06/15/24 gabapentin 300 mg capsule 600 mg PO QHS NERVE PAIN 06/15/24 methenamine hippurate 1 gram tablet 1 g PO QHS BLADDER 06/15/24 sennosides 8.6 mg capsule (senna) 8.6 mg PO DAILY PRN constipation 06/15/24 vibegron 75 mg tablet (Gemtesa) 75 mg PO DAILY OAB 06/15/24 acetaminophen 500 mg tablet (Tylenol Extra Strength) 500 - 1,000 mg (1 - 2 x 500 mg) PO Q6H PRN fever or pain 30 days #60 tabs 07/05/24 baclofen 10 mg tablet 10 mg PO DAILY PRN muscle spasm 30 days #30 tabs 07/05/24 enoxaparin 40 mg/0.4 mL subcutaneous syringe (Lovenox) 40 mg (0.4 mL) subcut DAILY 9 days #3.6 mL 07/05/24 omeprazole 20 mg capsule,delayed release 20 mg PO DAILY 30 days #30 caps 07/05/24 Hospital Course Operations - (23 Jun 2024 Excision of sacral wound, sacral bone biopsy, placement of irrigating wound VAC. 30 Jun 2024 Sacral wound closure with right gluteal myocutaneous flap (right gluteus shila rotation flap).) Procedures Wound vac placement Summary of Care Provided Minutes Spent on Discharge: 35 Hospital Course: Date of Procedure: 06/23/24 Pre-Operative Diagnosis: Sacral wound with history of osteomyelitis Post-Operative Diagnosis: Same Surgery/Procedure Performed: 1) Excision of sacral wound for surgical preparation of placement of VAC, 7 x 2 cm () 2) Bone biopsy of the sacrum (concern for osteomyelitis) (CPT: 57986) 3) Placement of non-disposable wound VAC, irrigating (VeraFlow) to the sacral wound, <50 cm ^2 (CPT 85505) Operative deep tissue cultures from 23 Jun 2024 positive for Staphylococcus hominis hominis. ID consulted and she was started on Cefazolin, which he states the plan is complete 05 Jul 2024. Sacral bone biopsy from 23 Jun 2024 showed A piece of bone with reactive changes, negative for acute osteomyelitis. Date of Procedure: 06/30/24 Pre-Operative Diagnosis: Sacral Wound With Exposed Bone Post-Operative Diagnosis: Same Surgery/Procedure Performed: 1) Excision of sacral ulcer in preparation for muscle or myocutaneous flap or skin graft (CPT: 58178) 2) Sacral wound closure with right gluteal myocutaneous flap (right gluteus shila rotation flap) (CPT: 10901) 3) Use of fluorescence angiography for assessment of flap (following dissection) intra-operatively (using SPY machine), (CPT: 77859) Venous Doppler obtained 02 Jul 2024 as per recommendation of her Vascular physician and hematology to determine post operative anticoagulation. It showed Deep veins of the lower extremities are bilaterally patent and compressible segmentally. There is no evidence of deep vein thrombosis on either side. Valvular competence appears intact with the proximal deep venous systems bilaterally. The great saphenous veins appear bilaterally patent and compressible segmentally. Physical Exam Narrative Sacral and gluteal incisions from rotational flap dry and intact. Sutures intact. No signs of hematoma or seroma. Flap is nice and pink with good capillary refill. Two NEIL drains draining serosanguineous fluid. She has been doing a great job off loading. Const oriented x3 Resp normal respiratory effort Cardio regular rate and regular rhythm GI soft to palpation Extremity no calf tenderness Weight / BMI Weight Weight: 146 lb 15.715 oz Body Mass Index (BMI) 23.0 ABG / Lab / Microbiology Data 06/28/24 06:01 06/28/24 06:01 Microbiology: Microbiology 06/30/24 13:53 Wound - Sacral Gram Stain - Final 06/30/24 13:53 Wound - Sacral Wound Culture - Final No growth aerobically. 06/30/24 13:53 Wound - Sacral Anaerobic Culture - Final No growth in 5 days. 06/30/24 13:53 Wound - Sacral Gram Stain - Final 06/30/24 13:53 Wound - Sacral Wound Culture - Final No growth aerobically. 06/30/24 13:53 Wound - Sacral Anaerobic Culture - Final No growth in 5 days. 06/23/24 10:12 Wound - Sacral Gram Stain - Final 06/23/24 10:12 Wound - Sacral Wound Culture - Final Staphylococcus hominis hominis 06/23/24 10:12 Wound - Sacral Anaerobic Culture - Final No anaerobic bacteria isolated. 06/23/24 10:10 Wound - Sacral Gram Stain - Final 06/23/24 10:10 Wound - Sacral Wound Culture - Final No growth aerobically. 06/23/24 10:10 Wound - Sacral Anaerobic Culture - Final No anaerobic bacteria isolated. D/C Instructions Discharge Diet: No restrictions (encourage increase protein intake) Discharge Activity: May Not Shower Additional Activity Instructions: She is to off load off of her flap. No sitting. No laying on flap. Call your doctor if your incision/area has: Continuous Slow Oozing, Sudden Increased Bleeding, Increased Pain/ Swelling, Increased Redness, Foul Smelling Discharge and Swelling at the incision site Call your doctor if you observe: Fever of 101 or Higher, Coldness, Increased Pain, Inability to urinate, Inability to have a bowel movement, Shortness of breath, Chest pain, Calf discomfort and Uncontrolled pain Suture Line Care: Avoid Pulling/Pushing and Avoid Pinching/Bending Change Dressing in: 1 day Cleanse incision/area with: Normal Saline and Keep Dressing Clean & Dry Drain: Suction Additional Dressing/Incision Instructions: Please keep track of drainage amount and send info with her at her follow up appointment DC O2, CPAP, BIPAP Needs Home O2 Discharge instructions: No DC home with Oxygen: No Please Follow Up With: Lewis Villalta MD When: Friday07/12/2024 at the [facility] Wound healing center [phone] Meaningful Use Info Meaningful Use Meaningful Use Diagnoses (Choose all that apply): None applicable Ischemic Stroke Statin Dosing Therapy Reference: STATIN DOSE THERAPY REFERENCE: * Patients > 75 years receive moderate or high dose statin therapy. * Patients 75 years or YOUNGER should receive HIGH intensity statin dose unless contraindicated. You will be required to document reason for non-treatment if statin daily dose does not meet guidelines. HIGH DOSE STATIN THERAPY DAILY Atorvastatin > than or = to 40 mg Rosuvastatin > than or = to 20 mg Amlodipine + Atorvastatin > than or = to 2.5/40 mg Ezetimibe + Simvastatin 10/80 mg Simvastatin 80mg Discharge Plan Admission Admit Date/Time: 06/23/24 10:31 Attending Provider: Lewis Villalta Primary Care Provider: Adam Cross Consulting Providers: Lewis Calderon Discharge Orders/Prescriptions Prescriptions: New baclofen 10 mg tablet 10 mg PO DAILY PRN (Reason: muscle spasm) 30 Days Qty: 30 0RF Rx Instructions: 10 mg daily as needed in addition to her baseline dose for muscle spasm enoxaparin [Lovenox] 40 mg/0.4 mL syringe 40 mg subcut DAILY 9 Days Qty: 3.6 0RF acetaminophen [Tylenol Extra Strength] 500 mg tablet 500 - 1,000 mg PO Q6H PRN (Reason: fever or pain) 30 Days Qty: 60 1RF omeprazole 20 mg capsule,delayed release(DR/EC) 20 mg PO DAILY 30 Days Qty: 30 1RF Continued gabapentin [Neurontin] 300 mg Capsule 300 mg PO DAILY Gemtesa 75 mg tablet 75 mg PO DAILY gabapentin 300 mg capsule 600 mg PO QHS methenamine hippurate 1 gram tablet 1 g PO QHS ascorbic acid (vitamin C) [C-1000] 1,000 mg tablet 1 g PO DAILY senna 8.6 mg capsule 8.6 mg PO DAILY PRN (Reason: constipation) baclofen 10 mg tablet 20 mg PO BID Referrals / Follow Up: Adam Cross MD [Primary Care Provider] - Disposition Disposition (needs filled in before D/C Order can be placed): Longterm Facility Charges/Coding Procedures Integumentary 111xxx-113xx: 15217 Global Visit
[2024-07-05 15:34] VITALS: BP 100/69; PULSE 97; RESP 16; TEMP 36.6; O2SAT 98
--- NOTE | 2024-07-05 16:04 | PHA.DC.MR.R ---
Pharmacy [place] Med Reconciliation Pharmacy Service has performed discharge medication reconciliation for this patient. The patient's discharge medication list was reviewed for discrepancies and discrepancies were resolved. Medications at Discharge Home Medications gabapentin 300 mg capsule (Neurontin) 300 mg PO DAILY NERVE PAIN 06/26/22 ascorbic acid (vitamin C) 1,000 mg tablet (C-1000) 1 g PO DAILY SUPPLEMENT 06/15/24 baclofen 10 mg tablet 20 mg PO BID muscle spasm 06/15/24 gabapentin 300 mg capsule 600 mg PO QHS NERVE PAIN 06/15/24 methenamine hippurate 1 gram tablet 1 g PO QHS BLADDER 06/15/24 sennosides 8.6 mg capsule (senna) 8.6 mg PO DAILY PRN constipation 06/15/24 vibegron 75 mg tablet (Gemtesa) 75 mg PO DAILY OAB 06/15/24 acetaminophen 500 mg tablet (Tylenol Extra Strength) 500 - 1,000 mg (1 - 2 x 500 mg) PO Q6H PRN fever or pain 30 days #60 tabs 07/05/24 baclofen 10 mg tablet 10 mg PO DAILY PRN muscle spasm 30 days #30 tabs 07/05/24 enoxaparin 40 mg/0.4 mL subcutaneous syringe (Lovenox) 40 mg (0.4 mL) subcut DAILY 9 days #3.6 mL 07/05/24 omeprazole 20 mg capsule,delayed release 20 mg PO DAILY 30 days #30 caps 07/05/24
--- NOTE | 2024-07-05 16:33 | CASEMGMT ---
Addendum entered by Wendie Hankins 07/06/24 11:53: Transport rescheduled for 1p on 07/06/23. SW and [facility] updated. Wendie Hankins DC Planning Asst. Original Note: Discharge orders, signed med list, and transport time sent to [facility]. [facility] will transport patient by cot at 7:30p. Nursing, SW, and pt updated. Pt will update her . Wendie Hankins DC Planning Asst.
--- NOTE | 2024-07-05 17:42 | CASEMGMT ---
Social Work- SW received notice from bedside nurse that SNF does not have a pressure-offloading mattress for pt this evening. SW called Darcie, bowen, [facility] to confirm. Darcie reports that they did not have a mattress and ordered one today, but it was unable to be delivered until tomorrow morning. SW notified that surgeon previously stated and it was shared with SNF on 07/01 that pt needed to have the mattress. Darcie reports precert is good through 07/12. LIZETH requested that mattress delivery is confirmed with SW in the morning; [facility] agreeable. SW updated surgeon and PA. LIZETH collaborated with case management engineer and it was determined that pt should not discharge due to lack of necessary equipment. LIZETH updated bedside nurse, charge nurse, surgeon, and PA. SW cancelled transport with Phys[facility]. Physicians placed pt on will-call list for the morning. Pt notified. SW remains available to follow. Plan: [facility]; skilled level of care MALACHI Whipple
[2024-07-05 19:50] VITALS: BP 105/68; PULSE 84; RESP 16; TEMP 36.9; O2SAT 96
[2024-07-05] MEDS: Methenamine Hippurate 1 GM Tablet PO (21:19)
[2024-07-05] MEDS: Gabapentin 300 MG Capsule 600 MG PO (21:20)
[2024-07-06 02:07] VITALS: BP 101/53; PULSE 71; RESP 16; TEMP 36.8; O2SAT 97
[2024-07-06 08:05] VITALS: BP 91/46; PULSE 100; RESP 17; TEMP 36.8; O2SAT 98
[2024-07-06] MEDS: Vibegron 75 MG TABLET PO (09:09)
[2024-07-06] MEDS: Baclofen 10 MG Tablet 20 MG PO (09:09)
[2024-07-06] MEDS: Enoxaparin 40 MG/0.4 ML Syringe SC (09:10)
[2024-07-06] MEDS: Pantoprazole Sodium 40 MG Tablet PO (09:10)
[2024-07-06] MEDS: Gabapentin 300 MG Capsule PO (09:10)
[2024-07-06] MEDS: Acetaminophen 325 MG Tablet 650 MG PO (09:11)
[2024-07-06] MEDS: Ascorbic Acid 500 MG Tablet 1000 MG PO (09:11)
--- NOTE | 2024-07-06 10:08 | PN.SURG_ITS ---
Subjective Subjective Doing well today. Was unable to be transferred last night because pressure offloading bed was not ready at the rehab facility in [place]. They should have one today, though. Objective Data Objective Data Vital Signs: Vital Signs Temp Pulse Resp BP Pulse Ox O2 Del Method 98.2 F 71 16 101/53 L 97 Room Air 07/06/24 02:07 07/06/24 02:07 07/06/24 02:07 07/06/24 02:07 07/06/24 02:07 07/06/24 02:07 Oxygen Delivery Method Room Air Weight: 146 lb 15.715 oz Body Mass Index (BMI) 23.0 Intake & Output: Intake and Output for Last 24 Hours 07/04/24 07/05/24 07/06/24 23:59 23:59 23:59 Intake Total 860 / 860 2220 / 2220 350 / 350 Output Total 1525 / 1525 60 / 60 13 / 13 Balance -665 / -665 2160 / 2160 337 / 337 Lab / Micro Data 06/28/24 06:01 06/28/24 06:01 Micro: Microbiology 07/05/24 15:05 Mucosa - Nose Coronavirus COVID-19 PCR - Final 06/30/24 13:53 Wound - Sacral Gram Stain - Final 06/30/24 13:53 Wound - Sacral Wound Culture - Final No growth aerobically. 06/30/24 13:53 Wound - Sacral Anaerobic Culture - Final No growth in 5 days. 06/30/24 13:53 Wound - Sacral Gram Stain - Final 06/30/24 13:53 Wound - Sacral Wound Culture - Final No growth aerobically. 06/30/24 13:53 Wound - Sacral Anaerobic Culture - Final No growth in 5 days. 06/23/24 10:12 Wound - Sacral Gram Stain - Final 06/23/24 10:12 Wound - Sacral Wound Culture - Final Staphylococcus hominis hominis 06/23/24 10:12 Wound - Sacral Anaerobic Culture - Final No anaerobic bacteria isolated. 06/23/24 10:10 Wound - Sacral Gram Stain - Final 06/23/24 10:10 Wound - Sacral Wound Culture - Final No growth aerobically. 06/23/24 10:10 Wound - Sacral Anaerobic Culture - Final No anaerobic bacteria isolated. Physical Exam Narrative Sacral and gluteal regions with incisional wound VAC over the incision, holding suction. VAC was removed at bedside today The rotational flap was assessed and has no signs of hyperemia or ischemia. There is no congestion. Appears to be intact and healthy, and adequately pressure offload. No open areas The incision line is intact. No signs of infection Drains are serosanguineous and there is no signs of purulence Const oriented x3 and no apparent distress Resp normal respiratory effort Cardio regular rate Extremity normal to inspection Extremity Narrative: No signs of swelling or DVT Legs have normal appearance Assessment & Plan Assessment/Plan (1) Sacral decubitus ulcer, stage IV: (2) Infected decubitus ulcer: (3) Immobility syndrome (paraplegic): PLAN: Plan Annette Lester is a 48-year-old female postop day 6 from right superior gluteal myocutaneous rotation flap for reconstruction of his sacral wound (stage IV) in the setting of 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 Neuro: PO pain meds as needed (gabapentin). Baclofen for spasms. Adding 10 mg baclofen daily as needed in addition to her baseline baclofen to reduce spasms (this is what she does at home when she is having increased spasms). : Self cath as needed, no issues post op. Bladder medicines restarted. Hem: 40 mg Lovenox SubQ daily and SCDs. Patient has been inconsistent with her SCD use as she reports that it is causing problems with her skin. I counseled her on the importance of SCDs and wearing them as much as possible. Post op L ower Extremity Venous duplex on 02 Jul 2024 was without signs of DVT. Subcutaneous Lovenox 40 mg Daily for 8 more days per hematology recommendation (ordered and discussed with patient). Abdomen: Patient has had regular bowel movements with normal regiment of patient performing digital stimulation (she has been taking care of this and keeping everything clean, no issues). ID: ID consulted. Deep soft tissue cultures positive for Staphylococcus hominis hominis (pansensitive). Continue Cefazolin per the recommendations and follow- up soft tissue and bone cultures from the day of reconstruction, but otherwise antibiotics end later today per infectious disease. No signs of osteomyelitis on the pathology analysis. No signs of malignancy on evaluation of the ulcer/skin. Continue pressure offloading on pressure bed. Continue high protein diet. Incisional VAC removed Dry dressing only Continue drain care every 4 hours F/u with me at the wound care center on 12 Jul 2024. Charges/Coding Procedures Integumentary 111xxx-113xx: [id number] Global Visit
--- NOTE | 2024-07-06 10:14 | WOUNDNOTE ---
wound photo: sacrum/buttocks
--- NOTE | 2024-07-06 11:57 | CASEMGMT ---
LIZETH received conformation from Darcie at [facility] that pt mattress was delivered. SW update surgeon PA, bedside nurse, and business unit manager. Pt updated. Transport arranged for 13:00. Plan: [facility]; skilled level of care MALACHI Whipple
[2024-07-06] MEDS: Baclofen 10 MG Tablet PO (12:44)
[2024-07-06 13:01] VITALS: BP 111/46; PULSE 86; RESP 16; TEMP 37.1; O2SAT 100
--- NOTE | 2024-07-06 13:12 | NURSING ---
Report called to [facility], spoke with Junior.
== END 2024-07-06 15:18 | disposition skilled nursing facility (03) | DRG 575 ==
PROVIDERS: Anesthesiology; Admitting Provider Surgery Plastic and Reconstructive Surgery; PCP Family Medicine; Visit Provider Surgery Plastic and Reconstructive Surgery
PROC: 0KXN0ZZ Transfer Right Hip Muscle, Open Approach (ICD-10-PCS; principal; 2024-06-30 08:40)
DX: L89.154 Pressure ulcer of sacral region, stage 4 (principal); B94.8 Sequelae of other specified infectious and parasitic diseases; G35 Multiple sclerosis; B95.7 Other staphylococcus as the cause of diseases classified elsewhere; B96.89 Other specified bacterial agents as the cause of diseases classified elsewhere; G43.909 Migraine, unspecified, not intractable, without status migrainosus; M62.3 Immobility syndrome (paraplegic); L08.9 Local infection of the skin and subcutaneous tissue, unspecified; Z87.891 Personal history of nicotine dependence; Z79.2 Long term (current) use of antibiotics; Z86.69 Personal history of other diseases of the nervous system and sense organs; Z79.899 Other long term (current) drug therapy; Z87.440 Personal history of urinary (tract) infections; Z79.620 Long term (current) use of immunosuppressive biologic; Z88.1 Allergy status to other antibiotic agents
CPT/HCPCS: 36415; 75805; 80048; 80053; 85025; 87070; 87075; 87077; 87176; 87186; 87205; 87635; 88305; 88311; 93005; 93970; 97110; 97140; 97162; 97530; 97802; 97803; A4216; J2405

== ENCOUNTER 2024-07-19 14:45 | Outpatient (RCR) | payer MEDICARE, SELFPAY ==
[2024-07-12 13:10] VITALS: RESP 16
--- NOTE | 2024-07-12 16:24 | NURSING ---
PHOTO 07/12/24 Sacral Post-op - Initial
--- NOTE | 2024-07-12 17:25 | PN.PCM_ITS ---
History of Present Illness Date of Service: 07/12/24 Chief Complaint: Sacral pressure sore, Stage IV. History of Wound: Surgery 12/18/22 - Excision sacral pressure sore, Stage IV, with partial ostectomy for osteomyelitis. Wound care - Dakin's alternated with Silver dressings. Operative Culture - Corynebacterium striatum in the soft tissue and Kocuria kristinae in the bone. Was treated perioperatively with Augmentin and Flagyl for a preop culture positive for Enterococcus faecalis and Anaerobes. Kocuria kristinae in the bone is positive for osteomyelitis. It is significant and should be treated since it didn't show up in the soft tissue culture. She was placed on Augmentin and has finished them. Pathology - Negative for acute osteomyelitis. Chronic reparative and reactive change. Prealbumin from 10/30/22 was 20.1. Encourage nutritional supplementation with protein to help the healing process. MRI Pelvis from 08/21/22 - 2.8 cm decubitus ulcer at the base of the coccyx without discrete evidence of osteomyelitis. At her Wound Center visit on 02/10/23, she had urinary symptoms. A Urinalysis was done which did not report any WBC, and no Bacteria reported. The Leukocyte Esterase was 500. She was started on Cipro and has finished them. A Urine Culture showed Klebsiella pneumoniae. It is sensitive to Cipro. Today her urinary symptoms have resolved. In the Summer, 2021 she had diagnosis of osteomyelitis. She was placed on IV antibiotics per Infectious Diseases for 6 weeks until January,. This is important because it establishes a timeline for chronic refractory osteomyelitis. She underwent HBO treatments for chronic refractory osteomyelitis and finished without problems. She tolerated the treatments. MRI of her pelvis on 04/09/24 showed Sacral decubitus ulcer and skin thickening/cellulitic changes at the midline of the gluteal folds with mild willam ical erosion at level of the fourth coccyx with mild edema anterior to area of cortical erosion/infection. No abscess is present. Intermixed sclerosis of the eroded bone indicates an acute on chronic process. Today she denies fever. Her appetite is good. Of note patient has no diverting ostomy. She is able to manage her bowel movements as needed with digital decompaction. She also does self- catheterization. Subjective Subjective Chief Complaint: Sacral pressure sore, Stage IV. History of Wound: HPI from Dr. Villalta, 23 February 2024: Rocío Coronado is a 48-year-old female with a complicated past medical history who presents for stage IV sacral wound. Patient reports that she became sick with COVID in April 2020, and on 's Day (2020, she suddenly lost the ability to walk/move lower extremities as well as the ability to feel below her lower thoracic spine dermatomes. She had extensive workup for MS and went on several rounds of Solu-Medrol IV as an inpatient at the [facility]. Eventually she got a second opinion from the [facility] and it was thought that she had a hemorrhagic myelitis secondary to the viral infection (COVID in the winter 2019). She has been paraplegic ever since, and has dealt with chronic stage IV sacral ulcer for over a year. The patient is quite active and has adolescent children with whom she spends a significant amount of time. 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 Of note, Dr. Gregory who was formerly part of our practice performed the following surgery with the following postoperative course (per chart review): Surgery 12/18/22 - Excision sacral pressure sore, Stage IV, with partial ostectomy for osteomyelitis. Wound care - Dakin's alternated with Silver dressings. Operative Culture - Corynebacterium striatum in the soft tissue and Kocuria kristinae in the bone. Was treated perioperatively with Augmentin and Flagyl for a preop culture positive for Enterococcus faecalis and Anaerobes. Kocuria kristinae in the bone is positive for osteomyelitis. It is significant and should be treated since it didn't show up in the soft tissue culture. She was placed on Augmentin and has finished them. Pathology - Negative for acute osteomyelitis. Chronic reparative and reactive change. Prealbumin from 10/30/22 was 20.1. Encourage nutritional supplementation with protein to help the healing process. MRI Pelvis from 08/21/22 - 2.8 cm decubitus ulcer at the base of the coccyx without discrete evidence of osteomyelitis. At her Wound Center visit on 02/10/23, she had urinary symptoms. A Urinalysis was done which did not report any WBC, and no Bacteria reported. The Leukocyte Esterase was 500. She was started on Cipro and has finished them. A Urine Culture showed Klebsiella pneumoniae. It is sensitive to Cipro. Today her urinary symptoms have resolved. In the Summer, 2021 she had diagnosis of osteomyelitis. She was placed on IV antibiotics per Infectious Diseases for 6 weeks until January,. This is important because it establishes a timeline for chronic refractory osteomyelitis. She underwent HBO treatments for chronic refractory osteomyelitis and finished without problems. She tolerated the treatments. Today she denies fever. Her appetite is good. 23 February 2024: Patient reports that she has been compliant with her daily wound care regimen and does not have any fevers or chills or signs of acute infection at this time. She has an eggshell bed but does not have an air bed/ hospital bed and does not want 1 at this time. She tries to pressure offload it, and has a wheelchair that she can stand and like a chariot. Of note she has reasonable control of her bowels and does manual disimpaction as needed. She rarely has any stool around the wound. She also self caths and is seeing a urologist for her oxybutynin and potential Botox for her bladder spasms. She has been taking great care with regards to nutrition. She cooks and cleans for her family. 15 Mar 2024: Doing well with dressing changes. She has an appointment with Dr. Smith from hematology tomorrow to address Eliquis (patient stopped Eliquis on her own) and a plan going forward. Patient reports that she does not want to have surgery until after the first of the year as her is heavily involved in hunting season currently. She recently had nutrition labs and her albumin was 3.8 and her prealbumin was 17. She is continuing a high-protein diet. She is also continuing pressure offloading and now has a pressure offloading bed at home. 17 May 2024: Doing well with wound care and nutrition. Wound is beginning smaller but it is still down to bone. MRI from March 2024 (last month) demonstrated some reactive changes in the bone versus some acute on chronic possible osteomyelitis at the base of the wound, but localized to the area of the wound. Patient has a pressure offloading bed at home and is ready for reconstruction as she is made arrangements with her family for pressure offloading protocols/positioning restrictions. She is also recently went to the [facility] and had blood work done. She is following up with them next week. 08 Jun 2024: Patient doing well overall. Has been working hard to continue high-protein diet and pressure offload. Hematology note reviewed with the patient. Patient is scheduled for a lower extremity ultrasound to assess venous architecture. If no clot burden/chronic changes concerning for high perioperative VTE risk, then they are recommending simple postoperative anticoagulation while inpatient with prophylactic dose (Xarelto 10 mg PO daily). Patient happy with the plan. She's scheduled for debridement/cultures/irrigating VAC followed by second stage reconstruction for later this month. Current encounter, 12 Jul 2024: Patient 12 days status post left gluteal shila myocutaneous rotation flap for closure of stage IV sacral wound. She is doing quite well. No signs of recurrence of the wound. She has been compliant with pressure offloading at her facility on a pressure offloading bed and in the lateral decubitus positions/prone position. Drains have had less than 15 cc output consistently. She denies any fevers or chills Objective Data Objective Data Vital Signs: Vital Signs Resp O2 Del Method 16 Room Air 07/12/24 13:10 07/12/24 13:10 Oxygen Delivery Method Room Air Charges/Coding Procedures Integumentary [id number]: [id number] Global Visit Physical Exam Narrative The rotational flap was assessed and has no signs of hyperemia or ischemia. There is no congestion. Appears to be intact and healthy, and adequately pressure offload. No open areas The incision line is intact. No signs of infection. Half of the sutures were removed today. Drains are serosanguineous and were removed. Const oriented x3 and no apparent distress Resp normal respiratory effort Cardio regular rate Extremity normal to inspection Extremity Narrative: No signs of swelling or DVT Legs have normal appearance Debridement Note Debridement Note No debridement was completed: No debridement was completed today Post-Debridement Measurements and Additional Note: Post-Debridement Measurements/Treatment DEBBI - Nurse 1 - General Ulcer Assessment Start: 07/12/24 13:10 Freq: Status: Active Protocol: BENIGNO Activity Type Activity Date Activity User E-sign Co-sign Detail Recorded Client Recorded Date Recorded By Document 07/12/24 13:10 KALI [id number] 07/12/24 13:25 KW 07/12/24 13:10 - Today's Visit Information Type of service Initial Visit Arrival Mode Stretcher Patient Identification Verified (Name & Yes ) Vital Signs Temperature Source Temporal Pulse Location Monitor Respiratory Rate (12-18) 16 Respiratory rate source Observation Oxygen Delivery Method Room Air Source Monitor Position Supine Blood Pressure Location Left Arm History Since Last Visit- (Skip if this is Patient's initial visit) Have you changed medications since your No last visit? Any new allergies or adverse reactions No Had a fall/change in ADL's that may No increase risk of falls Signs or symptoms of abuse and/or No neglect since last visit Have you been in the hospital since your No last visit? Has dressing in place as prescribed Yes Has compression in place as prescribed Yes Has offloadiing in place as prescribed N/A Experienced any changes in pain level or No management Left Footwear Slipper Right Footwear Slipper Pain Scale: 0-10 Numeric Is Patient Pain Free? Yes WC - Nurse 1 - General Ulcer Measurement Start: 07/12/24 13:10 Freq: Status: Active Protocol: Activity Type Activity Date Activity User E-sign Co-sign Detail Recorded Client Recorded Date Recorded By Document 07/12/24 13:10 KALI [id number] 07/12/24 13:25 KALI 07/12/24 13:10 Wound Center Nurse 1 #1- sacral post op -Current Size (cm) - Length 32 -Current Size (cm) - Width 0.1 -Current Size (cm) - Depth 0 -Total Square Cm 3.2 -Date of Last Picture (Recall this 07/12/24 field) -Exudate Amt None Present -Texture (Neda-wound Skin Appearance) Assessed -Moisture (Neda-wound Skin Appearance) Assessed -Color (Neda-wound Skin Appearance) Assessed -Temperature (Neda-wound Skin No Abnormality Appearance) (Pt Warm) -Tenderness on Palpation (Neda-wound No Skin Appearance) -Ulcer Cleansing Soap and Water -Foul Odor after Cleansing No -Wound Comment(s) post surgical- 36 intact sutures WC - Nurse 2 - General Ulcer CM Notes Start: 07/12/24 13:10 Freq: Status: Active Protocol: Activity Type Activity Date Activity User E-sign Co-sign Detail Recorded Client Recorded Date Recorded By Document 07/12/24 13:47 MAHESH [id number] 07/12/24 13:48 MAHESH 07/12/24 13:47 Wound Center Nurse 2 -Correct Patient No -Correct Side, Site, Position No -Correct Procedure No -Procedure Performed No -Wound/Ulcer Outcome Healed- Flap -Pressure Reduction Specialty bed Pain Scale: 0-10 Numeric Is Patient Pain Free? Yes Assessment/Plan Assessment/Plan (1) Sacral decubitus ulcer, stage IV: CODE(S): L89.154 - Pressure ulcer of sacral region, stage 4 PLAN: Status post left myocutaneous gluteus shila rotation flap Expected course thus far No growth to date from the soft tissue or bone cultures from the date of flap reconstruction on 30 June 2024. No signs of infection. Drains removed without issue. Plan to follow-up in 1 week for removal of the remaining sutures. Continue strict pressure offloading.
[2024-07-19 14:45] VITALS: BP 113/34; PULSE 72; RESP 18; TEMP 37.5
--- NOTE | 2024-07-20 10:21 | PN.PCM_ITS ---
History of Present Illness Date of Service: 07/19/24 Chief Complaint: Sacral pressure sore, Stage IV. History of Wound: Surgery 12/18/22 - Excision sacral pressure sore, Stage IV, with partial ostectomy for osteomyelitis. Wound care - Dakin's alternated with Silver dressings. Operative Culture - Corynebacterium striatum in the soft tissue and Kocuria kristinae in the bone. Was treated perioperatively with Augmentin and Flagyl for a preop culture positive for Enterococcus faecalis and Anaerobes. Kocuria kristinae in the bone is positive for osteomyelitis. It is significant and should be treated since it didn't show up in the soft tissue culture. She was placed on Augmentin and has finished them. Pathology - Negative for acute osteomyelitis. Chronic reparative and reactive change. Prealbumin from 10/30/22 was 20.1. Encourage nutritional supplementation with protein to help the healing process. MRI Pelvis from 08/21/22 - 2.8 cm decubitus ulcer at the base of the coccyx without discrete evidence of osteomyelitis. At her Wound Center visit on 02/10/23, she had urinary symptoms. A Urinalysis was done which did not report any WBC, and no Bacteria reported. The Leukocyte Esterase was 500. She was started on Cipro and has finished them. A Urine Culture showed Klebsiella pneumoniae. It is sensitive to Cipro. Today her urinary symptoms have resolved. In the Summer, 2021 she had diagnosis of osteomyelitis. She was placed on IV antibiotics per Infectious Diseases for 6 weeks until January,. This is important because it establishes a timeline for chronic refractory osteomyelitis. She underwent HBO treatments for chronic refractory osteomyelitis and finished without problems. She tolerated the treatments. MRI of her pelvis on 04/09/24 showed Sacral decubitus ulcer and skin thickening/cellulitic changes at the midline of the gluteal folds with mild cortical erosion at level of the fourth coccyx with mild edema anterior to area of cortical erosion/infection. No abscess is present. Intermixed sclerosis of the eroded bone indicates an acute on chronic process. Today she denies fever. Her appetite is good. Of note patient has no diverting ostomy. She is able to manage her bowel movements as needed with digital decompaction. She also does self- catheterization. Subjective Subjective Chief Complaint: Sacral pressure sore, Stage IV. History of Wound: HPI from Dr. Villalta, 23 February 2024: Rocío Coronado is a 48-year-old female with a complicated past medical history who presents for stage IV sacral wound. Patient reports that she became sick with COVID in April 2020, and on 's Day (2020, she suddenly lost the ability to walk/move lower extremities as well as the ability to feel below her lower thoracic spine dermatomes. She had extensive workup for MS and went on several rounds of Solu-Medrol IV as an inpatient at the [facility]. Eventually she got a second opinion from the 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 She has been paraplegic ever since, and has dealt with chronic stage IV sacral ulcer for over a year. The patient is quite active and has adolescent children with whom she spends a significant amount of time. 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 Of note, Dr. Gregory who was formerly part of our practice performed the following surgery with the following postoperative course (per chart review): Surgery 12/18/22 - Excision sacral pressure sore, Stage IV, with partial ostectomy for osteomyelitis. Wound care - Dakin's alternated with Silver dressings. Operative Culture - Corynebacterium striatum in the soft tissue and Kocuria kristinae in the bone. Was treated perioperatively with Augmentin and Flagyl for a preop culture positive for Enterococcus faecalis and Anaerobes. Kocuria kristinae in the bone is positive for osteomyelitis. It is significant and should be treated since it didn't show up in the soft tissue culture. She was placed on Augmentin and has finished them. Pathology - Negative for acute osteomyelitis. Chronic reparative and reactive change. Prealbumin from 10/30/22 was 20.1. Encourage nutritional supplementation with protein to help the healing process. MRI Pelvis from 08/21/22 - 2.8 cm decubitus ulcer at the base of the coccyx without discrete evidence of osteomyelitis. At her Wound Center visit on 02/10/23, she had urinary symptoms. A Urinalysis was done which did not report any WBC, and no Bacteria reported. The Leukocyte Esterase was 500. She was started on Cipro and has finished them. A Urine Culture showed Klebsiella pneumoniae. It is sensitive to Cipro. Today her urinary symptoms have resolved. In the Summer, 2021 she had diagnosis of osteomyelitis. She was placed on IV antibiotics per Infectious Diseases for 6 weeks until January,. This is important because it establishes a timeline for chronic refractory osteomyelitis. She underwent HBO treatments for chronic refractory osteomyelitis and finished without problems. She tolerated the treatments. Today she denies fever. Her appetite is good. 23 February 2024: Patient reports that she has been compliant with her daily wound care regimen and does not have any fevers or chills or signs of acute infection at this time. She has an eggshell bed but does not have an air bed/hospital bed and does not want 1 at this time. She tries to pressure offload it, and has a wheelchair that she can stand and like a chariot. Of note she has reasonable control of her bowels and does manual disimpaction as needed. She rarely has any stool around the wound. She also self caths and is seeing a urologist for her oxybutynin and potential Botox for her bladder spasms. She has been taking great care with regards to nutrition. She cooks and cleans for her family. 15 Mar 2024: Doing well with dressing changes. She has an appointment with Dr. Smith from hematology tomorrow to address Eliquis (patient stopped Eliquis on her own) and a plan going forward. Patient reports that she does not want to have surgery until after the first of the year as her is heavily involved in hunting season currently. She recently had nutrition labs and her albumin was 3.8 and her prealbumin was 17. She is continuing a high-protein diet. She is also continuing pressure offloading and now has a pressure offloading bed at home. 17 May 2024: Doing well with wound care and nutrition. Wound is beginning smaller but it is still down to bone. MRI from March 2024 (last month) demonstrated some reactive changes in the bone versus some acute on chronic possible osteomyelitis at the base of the wound, but localized to the area of the wound. Patient has a pressure offloading bed at home and is ready for reconstruction as she is made arrangements with her family for pressure offloading protocols/positioning restrictions. She is also recently went to the financial aid administrator and had blood work done. She is following up with them next week. 08 Jun 2024: Patient doing well overall. Has been working hard to continue high-protein diet and pressure offload. Hematology note reviewed with the patient. Patient is scheduled for a lower extremity ultrasound to assess venous architecture. If no clot burden/chronic changes concerning for high perioperative VTE risk, then they are recommending simple postoperative anticoagulation while inpatient with prophylactic dose (Xarelto 10 mg PO daily). Patient happy with the plan. She's scheduled for debridement/cultures/irrigating VAC followed by second stage reconstruction for later this month. 12 Jul 2024: Patient 12 days status post left gluteal shila myocutaneous rotation flap for closure of stage IV sacral wound. She is doing quite well. No signs of recurrence of the wound. She has been compliant with pressure offloading at her facility on a pressure offloading bed and in the lateral decubitus positions/prone position. Drains have had less than 15 cc output consistently. She denies any fevers or chills Current encounter, 19 Jul 2024: Patient 2-1/2 weeks out from surgery. No problems. Patient has been compliant with pressure offloading. No systemic signs or symptoms of infection. She remains at the facility and has been getting ambulance transport. Discussed beginning pressure/sitting protocol next week. Objective Data Objective Data Vital Signs: Vital Signs Temp Pulse Resp BP O2 Del Method 99.5 F H 72 18 113/34 L Room Air 07/19/24 14:45 07/19/24 14:45 07/19/24 14:45 07/19/24 14:45 07/19/24 14:45 Oxygen Delivery Method Room Air Charges/Coding Procedures Integumentary 111xxx-113xx: [id number] Global Visit Physical Exam Narrative The rotational flap was assessed and has no signs of hyperemia or ischemia. There is no congestion. Appears to be intact and healthy, and adequately pressure offload. No open areas The incision line is intact. Remaining sutures removed. Const oriented x3 and no apparent distress Resp normal respiratory effort Cardio regular rate Extremity normal to inspection Extremity Narrative: No signs of swelling or DVT Legs have normal appearance Debridement Note Debridement Note Post-Debridement Measurements and Additional Note: Post-Debridement Measurements/Treatment DEBBI - Nurse 1 - General Ulcer Assessment Start: 07/12/24 13:10 Freq: Status: Active Protocol: BENIGNO Activity Type Activity Date Activity User E-sign Co-sign Detail Recorded Client Recorded Date Recorded By Document 07/12/24 13:10 KW [id number] 07/12/24 13:25 KW Document 07/19/24 14:45 KW [id number] 07/19/24 14:46 KW Edit Result 07/19/24 14:45 KW (1) [id number] 07/19/24 14:53 JF (1) Offload: Mattress, Cushion, Reposition - Person Taught => Patient - Teaching Method => Discussion, => Demonstration - Response to teaching => Return => Demonstration, => Verbalize => Understanding 07/12/24 07/19/24 13:10 14:45 - Today's Visit Information Type of service Initial Visit Follow-up Visit (Physician/TRACKWALKER ) Arrival Mode Stretcher Stretcher Patient Identification Verified (Name & Yes Yes ) Vital Signs Temperature (97.8 F-99.1 F) 99.5 F H Temperature Source Temporal Temporal Pulse Rate (60-100) 72 Pulse Location Monitor Monitor Respiratory Rate (12-18) 16 18 Respiratory rate source Observation Observation Oxygen Delivery Method Room Air Room Air Blood Pressure (90/60-120/80) 113/34 L Blood Pressure Mean (mm Hg) 60 Source Monitor Monitor Position Supine Left Lateral Blood Pressure Location Left Arm Right Forearm History Since Last Visit- (Skip if this is Patient's initial visit) Have you changed medications since your No No last visit? Any new allergies or adverse reactions No No Had a fall/change in ADL's that may No No increase risk of falls Signs or symptoms of abuse and/or No No neglect since last visit Have you been in the hospital since your No No last visit? Has dressing in place as prescribed Yes Yes Has compression in place as prescribed Yes N/A Has offloadiing in place as prescribed N/A N/A Experienced any changes in pain level or No No management Left Footwear Slipper Slipper Right Footwear Slipper Slipper Pain Scale: 0-10 Numeric Is Patient Pain Free? Yes Yes Teaching: Wound Center Offload: Mattress, Cushion, Reposition -Person Taught Patient -Teaching Method Discussion, Demonstration -Response to teaching Return Demonstration, Verbalize Understanding - Nurse 1 - General Ulcer Measurement Start: 07/12/24 13:10 Freq: Status: Active Protocol: Activity Type Activity Date Activity User E-sign Co-sign Detail Recorded Client Recorded Date Recorded By Document 07/12/24 13:10 KW [id number] 07/12/24 13:25 KW Document 07/19/24 14:45 [id number] 07/19/24 14:46 07/12/24 07/19/24 13:10 14:45 Wound Center Nurse 1 #1- sacral post op -Current Size (cm) - Length 32 0.1 -Current Size (cm) - Width 0.1 0.1 -Current Size (cm) - Depth 0 0 -Total Square Cm 3.2 0.01 -Date of Last Picture (Recall this 07/12/24 07/19/24 field) -Exudate Amt None Present None Present -Texture (Neda-wound Skin Appearance) Assessed Assessed -Moisture (Neda-wound Skin Appearance) Assessed Assessed -Color (Neda-wound Skin Appearance) Assessed Assessed -Temperature (Neda-wound Skin No Abnormality No Abnormality Appearance) (Pt Warm) (Pt Warm) -Tenderness on Palpation (Neda-wound No No Skin Appearance) -Ulcer Cleansing Soap and Water -Foul Odor after Cleansing No No -Wound Comment(s) post surgical- sutures intact 36 intact sutures WC - Nurse 2 - General Ulcer CM Notes Start: 07/12/24 13:10 Freq: Status: Active Protocol: Activity Type Activity Date Activity User E-sign Co-sign Detail Recorded Client Recorded Date Recorded By Document 07/12/24 13:47 [id number] 07/12/24 13:48 Document 07/19/24 14:51 [id number] 07/19/24 14:52 07/12/24 07/19/24 13:47 14:51 Wound Center Nurse 2 #1- sacral post op -Correct Patient No No -Correct Side, Site, Position No No -Correct Procedure No No -Procedure Performed No No -Post Debridement (cm) - Length 0 -Post Debridement (cm) - Width 0 -Post Debridement (cm) - Depth 0 -Total Square (Post) (cm) 0 -Area of Debridement (cm) - Length 0 -Area of Debridement (cm) - Width 0 -Total Square (Area) (cm) 0 -Wound/Ulcer Outcome Healed- Flap Healed- Flap -Pressure Reduction Specialty bed Pain Scale: 0-10 Numeric Is Patient Pain Free? Yes Yes WC - Nurse 3 - General Ulcer D/C NN Start: 07/12/24 13:10 Freq: Status: Active Protocol: Activity Type Activity Date Activity User E-sign Co-sign Detail Recorded Client Recorded Date Recorded By Document 07/13/24 10:11 KW [id number] 07/13/24 10:12 KW Document 07/19/24 15:11 DL [id number] 07/19/24 15:12 DL 07/13/24 07/19/24 10:11 15:11 Wound Care Center Nurse 3 #1- sacral post op -Primary Dressing Applied Aquacel Extra -Primary Dressing Covered/Secured with Dry Gauze, Secured with Tape -Aquacel Extra 1 Pain Scale: 0-10 Numeric Is Patient Pain Free? Yes Yes WC - Visit Discharge Discharge Condition Stable Stable Ambulatory Status Stretcher Ambulatory Transportation Private Auto Medication Reconcilliation completed & No provided to patient/care provider Clinical Summary of Care Provided Yes Facility Type [facility] Orders Sent Yes #1- sacral post op -Ulcer Cleansing Rinsed/ Irrigated with Saline -Foul Odor after Cleansing No -Primary Dressing Applied Aquacel Extra -Primary Dressing Covered/Secured with Dry Gauze, Secured with Tape -Aquacel Extra 1 Treatment Response Procedure Tolerated Well Assessment/Plan Assessment/Plan (1) Sacral decubitus ulcer, stage IV: CODE(S): L89.154 - Pressure ulcer of sacral region, stage 4 PLAN: Status post left myocutaneous gluteus shila rotation flap Expected course thus far. No growth to date from the soft tissue or bone cultures from the date of flap reconstruction on 30 June 2024. No signs of infection. Plan to follow-up in 1 week. Continue strict pressure offloading until then.
--- NOTE | 2024-07-20 10:40 | WC ---
PHOTO 07/19/24 [facility] POST OP
--- NOTE | 2024-07-21 15:17 | WC ---
Patient called and left a message letting us know her insurance is dropping her ECF stay and an appeal has been done and denied. She does not know when her d/c will be to home. Left a backline message with Dr Villalta letting him know. Called patient back and left a voicemail message letting her know i received the message and notified Dr Villalta. If there are any changes, I will let her know.
== END 2024-07-23 23:59 | disposition home or self-care (01) ==
LOC: WC 14:45
PROVIDERS: PCP Family Medicine; Referring Provider Surgery Plastic and Reconstructive Surgery; Visit Provider Surgery Plastic and Reconstructive Surgery
DX: L89.154 Pressure ulcer of sacral region, stage 4 (principal)
CPT/HCPCS: 99214; G0463

== ENCOUNTER 2024-08-02 13:30 | Outpatient (RCR) | payer MEDICARE, SELFPAY ==
[2024-07-24 01:29] VITALS: BP 113/34; PULSE 72; RESP 18; TEMP 37.5
[2024-08-02 13:34] VITALS: BP 114/61; PULSE 84; RESP 16; TEMP 37.3
--- NOTE | 2024-08-02 14:22 | PCM.PN.SRG ---
Subjective Subjective Doing very well. Back at home. No wounds. Has been sitting for 1 hour three times per day. Drove here in car (45 minutes away) today for her appointment. Objective Data Objective Data Vital Signs: Vital Signs Temp Pulse Resp BP O2 Del Method 99.1 F 84 16 114/61 Room Air 08/02/24 13:34 08/02/24 13:34 08/02/24 13:34 08/02/24 13:34 08/02/24 13:34 Oxygen Delivery Method Room Air Physical Exam Narrative The rotational flap was assessed and has healed into position. No open areas. No fluid collections. The incision line is intact. Good soft tissue coverage/padding over sacrum/coccyx Const oriented x3 and no apparent distress Resp normal respiratory effort Cardio regular rate Extremity normal to inspection Extremity Narrative: No signs of swelling or DVT Legs have normal appearance Assessment & Plan Assessment/Plan (1) Sacral decubitus ulcer, stage IV: PLAN: Healed s/p rotation flap (from right side with gluteal muscle rotation flap) Expected course No signs of infection at this point. O.K. to advance to 2 hours per day three times per day of sitting. Hold at this level until follow up in 1 month to check incision line/progress or sooner as needed. Patient happy with the plan Charges/Coding Procedures Integumentary 111xxx-113xx: [id number] Global Visit
--- NOTE | 2024-08-02 16:12 | WC ---
PHOTO 08/02/24 SACRAL POST-OP
--- NOTE | 2024-08-02 16:13 | WC ---
PHOTO 08/02/24 SACRAL POST OP
== END 2024-08-23 23:59 | disposition home or self-care (01) ==
LOC: WC 13:30
PROVIDERS: PCP Family Medicine; Referring Provider Surgery Plastic and Reconstructive Surgery; Visit Provider Surgery Plastic and Reconstructive Surgery
DX: L89.154 Pressure ulcer of sacral region, stage 4 (principal)
CPT/HCPCS: 99213; G0463

== ENCOUNTER 2024-08-30 13:38 | Outpatient (RCR) | payer MEDICARE, SELFPAY ==
[2024-08-24 00:49] VITALS: BP 114/61; PULSE 84; RESP 16; TEMP 37.3
[2024-08-30 15:12] VITALS: BP 129/76; PULSE 80; RESP 14; TEMP 37
--- NOTE | 2024-08-30 17:34 | PN.PCM_ITS ---
History of Present Illness Date of Service: 08/30/24 Chief Complaint: Sacral pressure sore, Stage IV. History of Wound: Surgery 12/18/22 - Excision sacral pressure sore, Stage IV, with partial ostectomy for osteomyelitis. Wound care - Dakin's alternated with Silver dressings. Operative Culture - Corynebacterium striatum in the soft tissue and Kocuria kristinae in the bone. Was treated perioperatively with Augmentin and Flagyl for a preop culture positive for Enterococcus faecalis and Anaerobes. Kocuria kristinae in the bone is positive for osteomyelitis. It is significant and should be treated since it didn't show up in the soft tissue culture. She was placed on Augmentin and has finished them. Pathology - Negative for acute osteomyelitis. Chronic reparative and reactive change. Prealbumin from 10/30/22 was 20.1. Encourage nutritional supplementation with protein to help the healing process. MRI Pelvis from 08/21/22 - 2.8 cm decubitus ulcer at the base of the coccyx without discrete evidence of osteomyelitis. At her Wound Center visit on 02/10/23, she had urinary symptoms. A Urinalysis was done which did not report any WBC, and no Bacteria reported. The Leukocyte Esterase was 500. She was started on Cipro and has finished them. A Urine Culture showed Klebsiella pneumoniae. It is sensitive to Cipro. Today her urinary symptoms have resolved. In the Summer, 2021 she had diagnosis of osteomyelitis. She was placed on IV antibiotics per Infectious Diseases for 6 weeks until January,. This is important because it establishes a timeline for chronic refractory osteomyelitis. She underwent HBO treatments for chronic refractory osteomyelitis and finished without problems. She tolerated the treatments. MRI of her pelvis on 04/09/24 showed Sacral decubitus ulcer and skin thickening/cellulitic changes at the midline of the gluteal folds with mild cortical erosion at level of the fourth coccyx with mild edema anterior to area of cortical erosion/infection. No abscess is present. Intermixed sclerosis of the eroded bone indicates an acute on chronic process. Today she denies fever. Her appetite is good. Of note patient has no diverting ostomy. She is able to manage her bowel movements as needed with digital decompaction. She also does self- catheterization. Subjective Subjective Doing very well. Back at home. No wounds. Has been sitting with no issues Objective Data Objective Data Vital Signs: Vital Signs Temp Pulse Resp BP 98.6 F 80 14 129/76 H 08/30/24 15:12 08/30/24 15:12 08/30/24 15:12 08/30/24 15:12 Charges/Coding Procedures Integumentary 111xxx-113xx: [id number] Global Visit Physical Exam Narrative The rotational flap was assessed and has healed into position. No open areas. No fluid collections. The incision line is intact. Good soft tissue coverage/padding over sacrum/coccyx Const oriented x3 and no apparent distress Resp normal respiratory effort Cardio regular rate Extremity normal to inspection Extremity Narrative: No signs of swelling or DVT Legs have normal appearance Debridement Note Debridement Note Post-Debridement Measurements and Additional Note: Post-Debridement Measurements/Treatment WC - Nurse 1 - General Ulcer Assessment Start: 08/30/24 15:12 Freq: Status: Active Protocol: DEBBI.LOWEXT Activity Type Activity Date Activity User E-sign Co-sign Detail Recorded Client Recorded Date Recorded By Document 08/30/24 15:12 ML [id number] 08/30/24 15:16 ML 08/30/24 15:12 WC - Today's Visit Information Type of service Follow-up Visit (Physician/[employer] ) Arrival Mode Wheelchair Transfer Assistance Manual,Transfer Board Patient Identification Verified (Name & Yes ) Patient Requires Transmission-Based No Precautions Vital Signs Temperature (97.8 F-99.1 F) 98.6 F Temperature Source Temporal Pulse Rate (60-100) 80 Pulse Location Monitor Respiratory Rate (12-18) 14 Respiratory rate source Observation Blood Pressure (90/60-120/80) 129/76 H Blood Pressure Mean (mm Hg) 93 Source Monitor Position Sitting Blood Pressure Location Left Arm History Since Last Visit- (Skip if this is Patient's initial visit) Have you changed medications since your No last visit? Any new allergies or adverse reactions No Had a fall/change in ADL's that may No increase risk of falls Signs or symptoms of abuse and/or No neglect since last visit Have you been in the hospital since your No last visit? Has dressing in place as prescribed No Has compression in place as prescribed N/A Has offloadiing in place as prescribed N/A Experienced any changes in pain level or No management Pain Scale: 0-10 Numeric Is Patient Pain Free? Yes - Nurse 2 - General Ulcer CM Notes Start: 08/30/24 15:12 Freq: Status: Active Protocol: Activity Type Activity Date Activity User E-sign Co-sign Detail Recorded Client Recorded Date Recorded By Document 08/30/24 15:29 [id number] 08/30/24 15:31 08/30/24 15:29 Is Patient Pain Free? Yes - Nurse 3 - General Ulcer D/C NN Start: 08/30/24 15:12 Freq: Status: Active Protocol: Activity Type Activity Date Activity User E-sign Co-sign Detail Recorded Client Recorded Date Recorded By Document 08/30/24 15:32 [id number] 08/30/24 15:32 08/30/24 15:32 Is Patient Pain Free? Yes WC - Visit Discharge Discharge Condition Stable Ambulatory Status Wheelchair Transportation Private Auto Accompanied by Medication Reconcilliation completed & Yes provided to patient/care provider Clinical Summary of Care Provided Yes Assessment/Plan Assessment/Plan (1) Sacral decubitus ulcer, stage IV: CODE(S): L89.154 - Pressure ulcer of sacral region, stage 4 PLAN: Status post left myocutaneous gluteus shila rotation flap Expected course (~2 months out) F/u in 6 weeks in the office
--- NOTE | 2024-08-31 10:47 | WC ---
PHOTO 08/30/24 SACRAL (H)
== END 2024-09-22 23:59 | disposition home or self-care (01) ==
LOC: WC 13:38
PROVIDERS: PCP Family Medicine; Referring Provider Surgery Plastic and Reconstructive Surgery; Visit Provider Surgery Plastic and Reconstructive Surgery
DX: L89.154 Pressure ulcer of sacral region, stage 4 (principal)
CPT/HCPCS: 99213; G0463